=== PATIENT | female | born 1945 | race Caucasian/White ===

== ENCOUNTER 2023-12-07 08:45 | Inpatient (IN) ==
--- NOTE | 2023-12-07 09:22 | Emergency Department Note ---
History of Present Illness General Chief complaint: Shortness of Breath/Dyspnea Time Seen by Provider: 12/07/23 09:04 Source: patient, family (Daughter who is at the bedside), RN notes reviewed and old records reviewed (03/11/23-upper GI endoscopy) Mode of arrival: EMS Limitations: no limitations History of Present Illness This patient is a 78-year-old female who comes in complaining of dyspnea on exertion. She says she gets shaky when she walks has been going on for quite some time. She also has some lower extremity edema she seen thinks the symptoms of gotten worse. No chest pain no shortness of breath at rest. No cough. Denies fever. She does have an ostomy and has had no blood or melena. She does an ostomy bag that has normal output she has history of Crohn's and gets fistulas she has a healing fistula lateral to the ostomy 1 under the ostomy bag. No headache. No urinary symptoms. No syncope or near syncope. No blood thinners. She has no focal numbness or weakness she been keeping up with her fluids Home Medications Medication Instructions Recorded Confirmed Type Bifidobacterium infantis 4 mg 4 mg PO QAM 09/18/22 12/07/23 History capsule (Align) calcium carbonate 600 mg calcium 600 mg PO BID 09/18/22 12/07/23 History (1,500 mg) tablet (Calcium) famotidine 20 mg tablet (Pepcid) 20 mg PO DAILY PRN Acid Reflux 09/18/22 12/07/23 History metformin 500 mg tablet 500 mg PO BID 09/18/22 12/07/23 History potassium chloride 20 mEq 20 meq PO DAILY PRN takes when 09/18/22 12/07/23 History tablet,extended release taking torsemide pravastatin 40 mg tablet 40 mg PO HS 09/18/22 12/07/23 History torsemide 10 mg tablet 10 mg PO DAILY PRN edema in feet 09/18/22 12/07/23 History levothyroxine 200 mcg tablet 200 mcg PO QAM 12/03/22 12/07/23 History diclofenac sodium 1 % topical gel 2 g topical QID #200 grams 01/26/23 12/07/23 Rx (Voltaren Arthritis Pain) cholecalciferol (vitamin D3) 50 50 mcg PO QAM 02/27/23 12/07/23 History mcg (2,000 unit) capsule (Vitamin D3) cyanocobalamin (vitamin B-12) 1,000 mcg PO QAM 02/27/23 12/07/23 History 1,000 mcg tablet (Vitamin B-12) levothyroxine 25 mcg tablet 25 mcg PO QAM 12/07/23 12/07/23 History Allergies Allergy/AdvReac Type Severity Reaction Status Date / Time red dye Allergy Severe Anaphylaxis Verified 03/10/23 13:54 Past Med/Surg History Medical History (Updated 12/07/23 @ 16:24 by Cuong Horton MD) Morbid obesity with BMI of 50.0-59.9, adult Osteoarthritis Ileostomy in place Ulcerative colitis Hypothyroidism Diabetes mellitus, type 2 on metformin daily History of pulmonary embolism "at least 10yrs ago"--unknown cause, was on blood thinners, but then taken off--per pt no issues currently Heart murmur follows with PCP--no obstetrics specialist Surgical History History of benign breast biopsy History of total left knee replacement (TKR) History of total right knee replacement (TKR) History of gastric bypass History of hernia surgery History of cholecystectomy History of appendectomy History of colonoscopy and ileoscopy History of esophagogastroduodenoscopy (EGD) History of colon resection performed about 20yrs ago d/t ulcerative colitis---has ileostomy History of tooth extraction History of wisdom tooth extraction History of thyroidectomy, total d/t nodules History of bilateral cataract extraction Family History Sister Family history of reaction to anesthesia nausea/vomiting Social History Smoking Status: Never smoker Second Hand Exposure: No; Do You Dip or Chew Tobacco: No; Hx Alcohol Use: Yes Alcohol type: wine Hx Substance Use: No Preferred Language: Citizen Of [place] Communication Ability: Effective Supervisor Order Takers Required: No Beliefs That Will Affect Care: None Current Living Situation: Alone Feels Safe at Home: Yes Assistive Devices: Glasses and Walker Review of Systems A total of 10 systems reviewed and were otherwise negative Physical Exam Vital Signs Vital Signs - 24 hr 12/07/23 08:54 12/07/23 08:56 12/07/23 08:56 Temperature 36.7 C Temperature Source Oral Pulse Rate 105 H 101 H Pulse Rate [Apical] Pulse Rate from SpO2 Sensor Pulse Rhythm Regular Pulse Strength Normal Respiratory Rate 20 19 Respiratory Effort / Characteristics Non-Labored Non-Labored Respiratory Depth Normal Normal Respiratory Pattern Regular Regular Blood Pressure 132/104 H Blood Pressure [Right Arm] Blood Pressure Mean 113 Blood Pressure Mean [Right Arm] Blood Pressure Position Sitting Pulse Oximetry 93 Oxygen Delivery Method Room Air Sepsis Recent Fever Within 48 Hours No Sepsis New/Unexplained Change in Mental Status No Sepsis Action Taken by Nursing No Action Required 12/07/23 09:00 12/07/23 09:10 12/07/23 09:20 Temperature Temperature Source Pulse Rate 98 H 102 H 94 H Pulse Rate [Apical] Pulse Rate from SpO2 Sensor 99 H Pulse Rhythm Pulse Strength Respiratory Rate 20 15 20 Respiratory Effort / Characteristics Respiratory Depth Respiratory Pattern Blood Pressure Blood Pressure [Right Arm] Blood Pressure Mean Blood Pressure Mean [Right Arm] Blood Pressure Position Pulse Oximetry 95 Oxygen Delivery Method Sepsis Recent Fever Within 48 Hours Sepsis New/Unexplained Change in Mental Status Sepsis Action Taken by Nursing 12/07/23 09:30 12/07/23 09:31 12/07/23 09:40 Temperature Temperature Source Pulse Rate 92 H 94 H 92 H Pulse Rate [Apical] Pulse Rate from SpO2 Sensor Pulse Rhythm Pulse Strength Respiratory Rate 20 15 Respiratory Effort / Characteristics Respiratory Depth Respiratory Pattern Blood Pressure Blood Pressure [Right Arm] Blood Pressure Mean Blood Pressure Mean [Right Arm] Blood Pressure Position Pulse Oximetry Oxygen Delivery Method Sepsis Recent Fever Within 48 Hours Sepsis New/Unexplained Change in Mental Status Sepsis Action Taken by Nursing 12/07/23 09:50 12/07/23 10:00 12/07/23 10:10 Temperature Temperature Source Pulse Rate 91 H 93 H 91 H Pulse Rate [Apical] Pulse Rate from SpO2 Sensor Pulse Rhythm Pulse Strength Respiratory Rate 18 20 23 Respiratory Effort / Characteristics Respiratory Depth Respiratory Pattern Blood Pressure Blood Pressure [Right Arm] Blood Pressure Mean Blood Pressure Mean [Right Arm] Blood Pressure Position Pulse Oximetry Oxygen Delivery Method Sepsis Recent Fever Within 48 Hours Sepsis New/Unexplained Change in Mental Status Sepsis Action Taken by Nursing 12/07/23 10:20 12/07/23 10:30 12/07/23 10:40 Temperature Temperature Source Pulse Rate 85 85 86 Pulse Rate [Apical] Pulse Rate from SpO2 Sensor Pulse Rhythm Pulse Strength Respiratory Rate 16 16 20 Respiratory Effort / Characteristics Respiratory Depth Respiratory Pattern Blood Pressure Blood Pressure [Right Arm] Blood Pressure Mean Blood Pressure Mean [Right Arm] Blood Pressure Position Pulse Oximetry Oxygen Delivery Method Sepsis Recent Fever Within 48 Hours Sepsis New/Unexplained Change in Mental Status Sepsis Action Taken by Nursing 12/07/23 10:50 12/07/23 11:00 12/07/23 11:10 Temperature Temperature Source Pulse Rate 88 87 88 Pulse Rate [Apical] Pulse Rate from SpO2 Sensor Pulse Rhythm Pulse Strength Respiratory Rate 19 23 23 Respiratory Effort / Characteristics Respiratory Depth Respiratory Pattern Blood Pressure Blood Pressure [Right Arm] Blood Pressure Mean Blood Pressure Mean [Right Arm] Blood Pressure Position Pulse Oximetry Oxygen Delivery Method Sepsis Recent Fever Within 48 Hours Sepsis New/Unexplained Change in Mental Status Sepsis Action Taken by Nursing 12/07/23 11:20 12/07/23 11:30 12/07/23 11:32 Temperature Temperature Source Pulse Rate 90 95 H 95 H Pulse Rate [Apical] Pulse Rate from SpO2 Sensor Pulse Rhythm Pulse Strength Respiratory Rate 18 14 22 Respiratory Effort / Characteristics Respiratory Depth Respiratory Pattern Blood Pressure Blood Pressure [Right Arm] Blood Pressure Mean Blood Pressure Mean [Right Arm] Blood Pressure Position Pulse Oximetry Oxygen Delivery Method Sepsis Recent Fever Within 48 Hours Sepsis New/Unexplained Change in Mental Status Sepsis Action Taken by Nursing 12/07/23 11:32 12/07/23 11:36 12/07/23 11:40 Temperature Temperature Source Pulse Rate 90 Pulse Rate [Apical] 89 Pulse Rate from SpO2 Sensor 91 H Pulse Rhythm Pulse Strength Respiratory Rate 20 22 Respiratory Effort / Characteristics Non-Labored Spontaneous Respiratory Depth Normal Respiratory Pattern Regular Blood Pressure 114/86 Blood Pressure [Right Arm] 114/86 Blood Pressure Mean 97 Blood Pressure Mean [Right Arm] 95 Blood Pressure Position Pulse Oximetry 94 92 Oxygen Delivery Method Room Air Sepsis Recent Fever Within 48 Hours Sepsis New/Unexplained Change in Mental Status Sepsis Action Taken by Nursing 12/07/23 11:50 12/07/23 12:00 12/07/23 12:00 Temperature Temperature Source Pulse Rate 89 91 H Pulse Rate [Apical] Pulse Rate from SpO2 Sensor 91 H 92 H Pulse Rhythm Pulse Strength Respiratory Rate 18 Respiratory Effort / Characteristics Respiratory Depth Respiratory Pattern Blood Pressure 120/86 Blood Pressure [Right Arm] Blood Pressure Mean 100 Blood Pressure Mean [Right Arm] Blood Pressure Position Pulse Oximetry 92 94 Oxygen Delivery Method Sepsis Recent Fever Within 48 Hours Sepsis New/Unexplained Change in Mental Status Sepsis Action Taken by Nursing 12/07/23 12:10 12/07/23 12:20 12/07/23 12:24 Temperature Temperature Source Pulse Rate 92 H 93 H Pulse Rate [Apical] Pulse Rate from SpO2 Sensor 91 H 89 Pulse Rhythm Pulse Strength Respiratory Rate 20 21 Respiratory Effort / Characteristics Respiratory Depth Respiratory Pattern Blood Pressure Blood Pressure [Right Arm] Blood Pressure Mean Blood Pressure Mean [Right Arm] Blood Pressure Position Pulse Oximetry 94 96 Oxygen Delivery Method Room Air Sepsis Recent Fever Within 48 Hours Sepsis New/Unexplained Change in Mental Status Sepsis Action Taken by Nursing 12/07/23 12:24 12/07/23 12:30 12/07/23 12:30 Temperature Temperature Source Pulse Rate 97 H Pulse Rate [Apical] Pulse Rate from SpO2 Sensor 94 H Pulse Rhythm Pulse Strength Respiratory Rate 14 Respiratory Effort / Characteristics Respiratory Depth Respiratory Pattern Blood Pressure 139/91 Blood Pressure [Right Arm] Blood Pressure Mean 110 Blood Pressure Mean [Right Arm] Blood Pressure Position Pulse Oximetry 92 Oxygen Delivery Method Room Air Sepsis Recent Fever Within 48 Hours Sepsis New/Unexplained Change in Mental Status Sepsis Action Taken by Nursing 12/07/23 12:40 12/07/23 12:50 12/07/23 13:00 Temperature Temperature Source Pulse Rate 89 89 92 H Pulse Rate [Apical] Pulse Rate from SpO2 Sensor 90 91 H 90 Pulse Rhythm Pulse Strength Respiratory Rate 16 17 17 Respiratory Effort / Characteristics Respiratory Depth Respiratory Pattern Blood Pressure Blood Pressure [Right Arm] Blood Pressure Mean Blood Pressure Mean [Right Arm] Blood Pressure Position Pulse Oximetry 95 93 93 Oxygen Delivery Method Sepsis Recent Fever Within 48 Hours Sepsis New/Unexplained Change in Mental Status Sepsis Action Taken by Nursing 12/07/23 13:00 12/07/23 13:10 Temperature Temperature Source Pulse Rate 88 Pulse Rate [Apical] Pulse Rate from SpO2 Sensor 91 H Pulse Rhythm Pulse Strength Respiratory Rate 24 Respiratory Effort / Characteristics Respiratory Depth Respiratory Pattern Blood Pressure 130/81 Blood Pressure [Right Arm] Blood Pressure Mean 103 Blood Pressure Mean [Right Arm] Blood Pressure Position Pulse Oximetry 93 Oxygen Delivery Method Sepsis Recent Fever Within 48 Hours Sepsis New/Unexplained Change in Mental Status Sepsis Action Taken by Nursing General: Well developed well nourished older female who appears in no acute distress, breathing comfortably on room air. Normal speech HEENT: Normal cephalic atraumatic. Pupils are equal round and reactive to light. Extraocular movements are intact. Oropharynx is pink with moist mucous membranes. No swelling of the mouth lips or tongue. Neck: Supple with a midline trachea. No meningeal signs or stiffness, no JVD or bruits. No Stridor. Chest: Clear to auscultation bilaterally. No wheezes or rhonchi. No increased work of breathing. Heart: Regular rate and rhythm without murmurs or gallops. Abdomen: Soft nontender, nondistended without rebound guarding or rigidity. There is an ostomy intact in the right abdomen. Medial eats that there is a small fistula which is healed and there is no drainage or redness. There apparently is a fistula under the ostomy the patient tells me. Extremities: No cyanosis clubbing. 1+ bilateral lower extremity .no calf tenderness or assymetry Spine/Back. Non tender to palpation. No CVA tenderness Skin: Good turgor without rashes. Neurologic exam: Cranial nerves two through 12 are intact. Motor and sensation are intact and symmetrical throughout. Course Administered Medications Insulin Aspart (Insulin Aspart Per Unit Charge) 0 units SC ACHS AILIN Stop: 01/06/24 16:29 Last Admin: 12/07/23 15:50 Dose: Not Given Documented By: JONATHON Co-signed By: GERBER Nystatin (Nystatin Cr 15 Gm Tube) 1 appln EXT TID AILIN Stop: 01/06/24 13:59 Last Admin: 12/07/23 15:49 Dose: Not Given Documented By: JONATHON Discontinued Medications Furosemide (Furosemide Inj 20 Mg/2 Ml Vial) 20 mg IV ONE ONE Stop: 12/07/23 11:07 Last Admin: 12/07/23 11:27 Dose: 20 mg Documented By: DANA Medical Decision Making Differential Diagnosis CHF, infection, pneumonia, anemia, Crohn's complication, electrolyte or metabolic abnormality Medical Records Attestation: I reviewed the patient's medical records. Home Medications Current Medication List: was personally reviewed by me Laboratory Data Attestation: I reviewed the patient's lab results. 12/07/23 09:54 12/07/23 09:54 Lab Results 12/07/23 12/07/23 12/07/23 Range/Units 09:54 10:00 10:02 WBC 8.11 (4.8-10.8) K/ul RBC 4.35 (4.20-5.40) M/uL Hgb 12.5 (12.0-16.0) g/dl Hct 38.6 (37.0-47.0) % MCV 88.7 (80.0-100.0) fL MCH 28.7 (25.0-34.0) pg MCHC 32.4 (32.0-36.0) g/dL RDW Std Deviation 47.4 H (36.4-46.3) fL RDW Coeff of Laurie 14.6 H (11.5-14.5) % Plt Count 198 (130-400) K/uL MPV 10.6 (9.4-12.4) fL Immature Gran % (Auto) 0.4 % Neut % (Auto) 78.1 % Lymph % (Auto) 11.3 % Jay % (Auto) 9.2 % Eos % (Auto) 0.5 % Baso % (Auto) 0.5 % Neut # (Auto) 6.33 (1.40-6.50) K/uL Lymph # (Auto) 0.92 L (1.20-3.40) K/uL Jay # (Auto) 0.75 H (0.11-0.59) K/uL Eos # (Auto) 0.04 (0.00-0.50) K/uL Baso # (Auto) 0.04 (0.00-0.20) K/uL Immature Gran # (Auto) 0.03 (0.01-0.20) K/uL PT 10.9 (9.0-12.0) Seconds INR 1.0 (0.9-1.1) Sodium 137 (136-145) mmol/L Potassium 4.5 (3.5-5.1) mmol/L Chloride 102 (98-107) mmol/L Carbon Dioxide 26 (21-32) mmol/L Anion Gap 9 (3-11) BUN 19 (6-23) mg/dl Creatinine 0.81 (0.6-1.2) mg/dl Est Cr Clr Drug Dosing 98.2 ml/min Est GFR ( Amer) 81.8 ml/min Est GFR (Non-Af Amer) 70.5 ml/min BUN/Creatinine Ratio 23.5 H (10-20) Glucose 153 H (70-99(Fasting)) mg/dl POC Glucose (70-99) mg/dl Lactate 1.9 (0.4-2.0) mmol/L Calcium 8.9 (8.6-10.3) mg/dl Magnesium 1.7 (1.7-2.4) mg/dl Total Bilirubin 0.6 (0.2-1.0) mg/dl Direct Bilirubin 0.1 (0-0.2) mg/dl AST 11 L (13-39) U/L ALT 9 (7-52) U/L Alkaline Phosphatase 90 (34-104) U/L Troponin I High Sens 21.3 H (0-14) pg/ml B-Natriuretic Peptide 658 H (0-100) pg/ml Total Protein 7.2 (6.0-8.3) gm/dl Albumin 3.8 (3.4-5.0) gm/dl Procalcitonin < 0.05 (0-0.5) ng/ml Urine Color Urine Appearance (Clear) Urine pH (4.5-7.5) Ur Specific [place] (1.000-1.030) Urine Protein (Negative) Urine Glucose (UA) (Negative) Urine Ketones (Negative) Urine Blood (Negative) Urine Nitrite (Negative) Urine Bilirubin (Negative) Urine Urobilinogen (Negative) Ur Leukocyte Esterase (Negative) SARS-CoV-2 (PCR) (Negative) Influenza Type A (PCR) (Neg) Influenza Type B (PCR) (Neg) RSV (RT-PCR) (Neg) 12/07/23 12/07/23 12/07/23 Range/Units 10:33 11:27 11:49 WBC (4.8-10.8) K/ul RBC (4.20-5.40) M/uL Hgb (12.0-16.0) g/dl Hct (37.0-47.0) % MCV (80.0-100.0) fL MCH (25.0-34.0) pg MCHC (32.0-36.0) g/dL RDW Std Deviation (36.4-46.3) fL RDW Coeff of Laurie (11.5-14.5) % Plt Count (130-400) K/uL MPV (9.4-12.4) fL Immature Gran % (Auto) % Neut % (Auto) % Lymph % (Auto) % Jay % (Auto) % Eos % (Auto) % Baso % (Auto) % Neut # (Auto) (1.40-6.50) K/uL Lymph # (Auto) (1.20-3.40) K/uL Jay # (Auto) (0.11-0.59) K/uL Eos # (Auto) (0.00-0.50) K/uL Baso # (Auto) (0.00-0.20) K/uL Immature Gran # (Auto) (0.01-0.20) K/uL PT (9.0-12.0) Seconds INR (0.9-1.1) Sodium (136-145) mmol/L Potassium (3.5-5.1) mmol/L Chloride (98-107) mmol/L Carbon Dioxide (21-32) mmol/L Anion Gap (3-11) BUN (6-23) mg/dl Creatinine (0.6-1.2) mg/dl Est Cr Clr Drug Dosing ml/min Est GFR ( Amer) ml/min Est GFR (Non-Af Amer) ml/min BUN/Creatinine Ratio (10-20) Glucose (70-99(Fasting)) mg/dl POC Glucose (70-99) mg/dl Lactate (0.4-2.0) mmol/L Calcium (8.6-10.3) mg/dl Magnesium (1.7-2.4) mg/dl Total Bilirubin (0.2-1.0) mg/dl Direct Bilirubin (0-0.2) mg/dl AST (13-39) U/L ALT (7-52) U/L Alkaline Phosphatase (34-104) U/L Troponin I High Sens 20.7 H (0-14) pg/ml B-Natriuretic Peptide (0-100) pg/ml Total Protein (6.0-8.3) gm/dl Albumin (3.4-5.0) gm/dl Procalcitonin (0-0.5) ng/ml Urine Color Yellow Urine Appearance Clear (Clear) Urine pH 5.0 (4.5-7.5) Ur Specific [place] 1.019 (1.000-1.030) Urine Protein Negative (Negative) Urine Glucose (UA) Negative (Negative) Urine Ketones Negative (Negative) Urine Blood Negative (Negative) Urine Nitrite Negative (Negative) Urine Bilirubin Negative (Negative) Urine Urobilinogen Negative (Negative) Ur Leukocyte Esterase Negative (Negative) SARS-CoV-2 (PCR) NEGATIVE (Negative) Influenza Type A (PCR) Negative (Neg) Influenza Type B (PCR) Negative (Neg) RSV (RT-PCR) Negative (Neg) 12/07/23 12/07/23 Range/Units 13:15 15:41 WBC (4.8-10.8) K/ul RBC (4.20-5.40) M/uL Hgb (12.0-16.0) g/dl Hct (37.0-47.0) % MCV (80.0-100.0) fL MCH (25.0-34.0) pg MCHC (32.0-36.0) g/dL RDW Std Deviation (36.4-46.3) fL RDW Coeff of Laurie (11.5-14.5) % Plt Count (130-400) K/uL MPV (9.4-12.4) fL Immature Gran % (Auto) % Neut % (Auto) % Lymph % (Auto) % Jay % (Auto) % Eos % (Auto) % Baso % (Auto) % Neut # (Auto) (1.40-6.50) K/uL Lymph # (Auto) (1.20-3.40) K/uL Jay # (Auto) (0.11-0.59) K/uL Eos # (Auto) (0.00-0.50) K/uL Baso # (Auto) (0.00-0.20) K/uL Immature Gran # (Auto) (0.01-0.20) K/uL PT (9.0-12.0) Seconds INR (0.9-1.1) Sodium (136-145) mmol/L Potassium (3.5-5.1) mmol/L Chloride (98-107) mmol/L Carbon Dioxide (21-32) mmol/L Anion Gap (3-11) BUN (6-23) mg/dl Creatinine (0.6-1.2) mg/dl Est Cr Clr Drug Dosing ml/min Est GFR ( Amer) ml/min Est GFR (Non-Af Amer) ml/min BUN/Creatinine Ratio (10-20) Glucose (70-99(Fasting)) mg/dl POC Glucose 135 H 122 H (70-99) mg/dl Lactate (0.4-2.0) mmol/L Calcium (8.6-10.3) mg/dl Magnesium (1.7-2.4) mg/dl Total Bilirubin (0.2-1.0) mg/dl Direct Bilirubin (0-0.2) mg/dl AST (13-39) U/L ALT (7-52) U/L Alkaline Phosphatase (34-104) U/L Troponin I High Sens (0-14) pg/ml B-Natriuretic Peptide (0-100) pg/ml Total Protein (6.0-8.3) gm/dl Albumin (3.4-5.0) gm/dl Procalcitonin (0-0.5) ng/ml Urine Color Urine Appearance (Clear) Urine pH (4.5-7.5) Ur Specific [place] (1.000-1.030) Urine Protein (Negative) Urine Glucose (UA) (Negative) Urine Ketones (Negative) Urine Blood (Negative) Urine Nitrite (Negative) Urine Bilirubin (Negative) Urine Urobilinogen (Negative) Ur Leukocyte Esterase (Negative) SARS-CoV-2 (PCR) (Negative) Influenza Type A (PCR) (Neg) Influenza Type B (PCR) (Neg) RSV (RT-PCR) (Neg) Imaging Data Attestation: I personally reviewed and interpreted this imaging study as follows: My Impression: Chest x-mark per my independent interpretation -there is cardiomegaly and increased vascular congestion I suspect a mild degree of CHF Radiologist's Impression: Chest X-Ray 12/07/23 09:14 XR chest 1V portable CLINICAL HISTORY: Sepsis TECHNIQUE: Single frontal radiograph of the chest was obtained. Comparison: None available at the time of this dictation. FINDINGS: No lines and tubes are seen. Cardiomegaly is noted. The aortic arch is calcified. The lungs are clear. No evidence of pleural effusion or pneumothorax. IMPRESSION: No acute abnormalities and in particular no radiographic evidence of pneumonia. ACT 112: Negative or not required by law. Electronically signed by: Jj Botello M.D. 12/07/2023 9:52 AM Venous Doppler Study 12/07/23 13:04 RIGHT LOWER EXTREMITY VENOUS DOPPLER HISTORY: right > left external swelling, hx of DVT/PE COMPARISON STUDY: None. FINDINGS: The right common femoral and superficial femoral veins are patent. There is occlusive thrombus identified within the right popliteal vein and lesser saphenous vein. The right calf vessels weren't not well visualized. IMPRESSION: Occlusive thrombus within the right popliteal vein and adjacent lesser saphenous vein. ACT 112: Negative or not required by law. Electronically signed by: Caleb Simmons M.D. 12/07/2023 2:48 PM Abdomen Ultrasound 12/07/23 13:14 ULTRASOUND ASCITES CHECK CLINICAL HISTORY: Cirrhosis. Abdominal swelling. COMPARISON STUDY: Abdominal CT dated 05/06/2023. FINDINGS: Real-time grayscale sonography of all 4 quadrants of the abdomen is performed to assess for abdominal ascites. No abdominal ascites is identified. IMPRESSION: No abdominal ascites is identified at the time of examination. Electronically signed by: Aramis Arceo M.D. 12/07/2023 2:29 PM ECG Data Attestation: I personally reviewed and interpreted this ECG as follows: Indication: + weakness Rate (beats per minute): 95 Rhythm: + normal sinus and + other (Poor baseline) ECG Intervals/blocks: + Normal QRS, + Normal QT and + Normal MD ECG [place]: + Normal ECG ST segments: + Normal ST segments and + T-wave inversions ECG Findings: + PACs; no PVCs Comparison ECG Date: no prior available Change: the following changes noted MDM Narrative This patient comes in as described above. She has had shakiness and dyspnea on exertion as well as increased lower extremity edema this been going on for a week or so but she think she is worse. She is afebrile. She has had no chest pain. She is stable vital signs at rest and feels well when she is sitting in bed. I did order full sepsis type workup as well as cardiac/pulmonary workup. Her EKG shows no acute ischemic changes or ectopy seen. Chest x-ray does suggest a component of CHF her BNP is elevated. Troponin is also mildly elevated 20 although she has no chest pain. She has had increasing lower extremity edema, I did give her Lasix 20 mg IV. She is not in A-fib. I did discuss the case with the [facility] hospitalist and I do think she has been admitted/ observed for further treatment and evaluation Continuous cardiac monitoring: Orders placed in EMR for continuous cardiac monitoring: Upon my evaluation patient noted to be in normal sinus rhythm rate of 95 Impression & Plan CHF (congestive heart failure), RIOS (dyspnea on exertion), Bilateral lower extremity edema, Elevated troponin I level Discharge Plan Visit Data Chief Complaint: Shortness of Breath/Dyspnea ED Provider: Cuong Horton Discharge Problem: CHF (congestive heart failure), RIOS (dyspnea on exertion), Bilateral lower extremity edema, Elevated troponin I level Forms Stand Alone Forms: My [employer] Prescriptions Prescriptions: No Action diclofenac sodium [Voltaren Arthritis Pain] 1 % gel 2 g topical QID Qty: 200 2RF Rx Instructions: apply to single elbow, wrist or hand; for hand includes palm/fingers/back of hand levothyroxine 200 mcg Tablet 200 mcg PO QAM Patient Comments: takes 200 mcg with 25 mcg for dose of 225 mcg cyanocobalamin (vitamin B-12) [Vitamin B-12] 1,000 mcg Tablet 1,000 mcg PO QAM cholecalciferol (vitamin D3) [Vitamin D3] 50 mcg (2,000 unit) Capsule 50 mcg PO QAM levothyroxine 25 mcg Tablet 25 mcg PO QAM Patient Comments: takes with 200 mcg metformin 500 mg Tablet 500 mg PO BID pravastatin 40 mg Tablet 40 mg PO HS torsemide 10 mg Tablet 10 mg PO DAILY PRN (Reason: edema in feet) calcium carbonate [Calcium 600] 600 mg calcium (1,500 mg) Tablet 600 mg PO BID Align 4 mg Capsule 4 mg PO QAM potassium chloride 20 mEq Tablet Extended Release 20 meq PO DAILY PRN (Reason: takes when taking torsemide) famotidine [Pepcid] 20 mg Tablet 20 mg PO DAILY PRN (Reason: Acid Reflux) Patient Comments: hardly uses Referrals Referrals: PCP,NO [Physician] - Discharge Problem: CHF (congestive heart failure) Qualifiers: Heart failure type: unspecified Heart failure chronicity: acute Qualified Code(s): I50.9 - Heart failure, unspecified
--- NOTE | 2023-12-07 09:53 | XRay Report ---
XR chest 1V portable CLINICAL HISTORY: Sepsis TECHNIQUE: Single frontal radiograph of the chest was obtained. Comparison: None available at the time of this dictation. FINDINGS: No lines and tubes are seen. Cardiomegaly is noted. The aortic arch is calcified. The lungs are clear . No evidence of pleural effusion or pneumothorax. IMPRESSION: No acute abnormalities and in particular no radiographic evidence of pneumonia. ACT 112: Negative or not required by law. Electronically signed by: Jj Botello M.D. 12/07/2023 9:52 AM
--- NOTE | 2023-12-07 09:56 | Electrocardiogram Report ---
Test Reason : Blood Pressure : / mmHG Vent. Rate : 095 BPM Atrial Rate : 095 BPM P-R Int : 152 ms QRS Dur : 082 ms QT Int : 372 ms P-R-T Axes : 042 -15 024 degrees QTc Int : 467 ms Sinus rhythm with Premature supraventricular complexes Nonspecific T wave abnormality Abnormal ECG No previous ECGs available Confirmed by Michael Bowden ([id number]) on 12/07/2023 9:55:55 AM Referred By: REFERRED SELF Confirmed By:Michael Bowden
--- OUTSIDE RECORDS SUMMARY | 2023-12-07 10:12 | External Medical Summary | Continuity of Care Document ---
Author Name Unknown Organization [address] [id number] Care Team Providers Care Agriculture Specialist Name Role Phone StreetSai Collinsina Lucero Primary Care Physician [phone] [id number] Date(s): 11/26/23 - 11/26/[address] [address] [phone] Encounter Diagnosis Need for hepatitis B booster vaccination(Discharge Diagnosis) - 11/26/23 Discharge Disposition: Home or Self Care Attending Physician: AIDNA Johns Kelli Jo Allergies, Adverse Reactions, Alerts No Known Medication Allergies Substance Reaction Severity Status red dye Anaphylaxis Severe Active Immunizations Given and Recorded Vaccine Date Status Refusal Reason hepatitis B adult vaccine 11/26/23 Given hepatitis B adult vaccine 05/04/23 Given hepatitis B adult vaccine 03/30/23 Given influenza virus vaccine, inactivated 10/13/22 Give n SARS-CoV-2 (COVID-19) mRNA BNT-162b2 vax 1 10/23/21 Recorded SARS-CoV-2 (COVID-19) mRNA BNT-162b2 vax 03/16/21 Recorded SARS-CoV-2 (COVID-19) mRNA BNT-162b2 vax 02/22/21 Recorded 1Result Comment: 2022-07-10: Historical information-source unspecified Medications Align Start: 07/10/22 15:11:00 EDT Start Date: 07/10/22 Status: Ordered Calcium 600+D Start: 07/10/22 15:11:00 EDT Start Date: 07/10/22 Status: Ordered ciprofloxacin 500 mg oral tablet Start: 11/24/23 6:24:00 EST, 1 tab, PO, q12h, Disp# 56 tab, Refills: 0, Pharmacy: [facility] [id number] Start Date: 11/24/23 Stop Date: 12/22/23 Status: Ordered diclofenac 1% topical gel APPLY 2 GRAMS TOPICALLY TO SINGLE ELBOW, WRIST OR HAND (HAND INCLUDES PALM/FINGERS/BACK OF HAND) 4 TIMES DAILY Start Date: 03/30/23 Status: Ordered hepatitis B adult vaccine 20 mcg/mL Start: 05/04/23 11:23:00 EDT, 1 mL, IM, ONCE, Disp# 1 mL, given to patient Start Date: 05/04/23 Status: Ordered levothyroxine 200 mcg (0.2 mg) oral tablet Start: 08/14/23 13:45:00 EDT, 1 tab, PO, Daily, Disp# 30 tab, Refills: 4, Pharmacy: [facility] 2229 Start Date: 08/14/23 Stop Date: 01/11/24 Status: Ordered levothyroxine 25 mcg (0.025 mg) oral tablet Start: 10/19/23 10:03:00 EST, 1 tab, PO, Daily, Disp# 30 tab, Refills: 2, Note to Pharmacy: patientto take 225 mg of levothyroxine., Pharmacy: [facility] 2229 Start Date: 10/19/23 Stop Date: 01/17/24 Status: Ordered metFORMIN 500 mg oral tablet Start: 04/20/23 13:09:00 EDT, 1 tab, PO, bid, Disp# 180 tab, Refills: 2, Pharmacy: [facility] Start Date: 04/20/23 Stop Date: 01/15/24 Status: Ordered metroNIDAZOLE 500 mg oral tablet Start: 11/24/23 6:24:00 EST, 1 tab, PO, q8h, Disp# 84 tab, Refills: 0, Pharmacy: [facility] 2229 Start Date: 11/24/23 Stop Date: 12/22/23 Status: Ordered nystatin 100,000 units/g topical powder Start: 06/03/23 10:48:00 EDT, See Instructions, Disp# 15 g, Refills: 1, Apply topically to affectedabdominal area 2-3 times daily, Pharmacy: [facility] 2229 Start Date: 06/03/23 Status: Ordered Potassium Chloride (Eqv-K-Tab) 20 mEq oral tablet, extended release Start: 09/02/23 13:23:00 EDT, 1 tab, PO, Daily, Disp# 90 tab, Refills: 5, Pharmacy: [facility] Start Date: 09/02/23 Stop Date: 02/23/25 Status: Ordered pravastatin 40 mg oral tablet Start: 04/20/23 13:10:00 EDT, 1 tab, PO, Daily, Disp# 90 tab, Refills: 1, Pharmacy: [facility] Start Date: 04/20/23 Stop Date: 10/17/23 Status: Ordered torsemide 10 mg oral tablet Start: 04/20/23 13:10:00 EDT, 1 tab, PO, Daily, Disp# 90 tab, Refills: 2, Pharmacy: [facility] Start Date: 04/20/23 Stop Date: 01/15/24 Status: Ordered Vitamin B12 Start: 07/10/22 15:10:00 EDT Start Date: 07/10/22 Status: Ordered Vitamin D3 1000 intl units (25 mcg) oral tablet Start: 10/13/22 10:07:00 EST, 1 tab, PO, bid Start Date: 10/13/22 Status: Ordered Problem List Condition Confirmation Course Effective Dates Status H ealth Status Informant Anemia Confirmed Active Cirrhosis Confirmed Active Diabetes Confirmed Active Hypothyroidism Confirmed Active Fistula Confirmed Active 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 Diabetic neuropathy Confirmed Active Tinea unguium Confirmed Active Arthritis, rheumatoid Confirmed Active Ulcerative colitis 1 Confirmed Active Vitamin D deficiency Confirmed Active 1c/b fistula formation Diagnosis Diagnosis Type Effective Dates Health Status Clinical Service Informant Need for hepatitis B booster vaccination Discharge Diagnosis 11/26/23 Non-Specified Procedures Procedure Date Related Diagnosis Body Site Status CT enterography 1 05/06/23 Complet ed Ultrasound--abdomen 2, 3 04/03/23 Completed Upper GI (gastrointestinal) endoscopy 4, 5 03/10/23 Completed Colonoscopy 6 09/23/[address] of abdomen and pelvis 7 09/05/22 Completed Medical records review 8 05/07/21 Completed Gastric bypass Completed Thyroidectomy Completed Total colectomy and ileostomy Completed Total knee replacement 9 Completed 1Impression: Redomonstration of a parastomal hernia. There are again noted to be multiple connections etween the bowel and the skin surface which may represent enterocutaneous fistulas. Correlation with physical exam is recommended. Hepatic cirrhosis 21) Cirrhotic liver. No hepatic lesions identified although sensitivity diminshed on this exam. 2) No significant biliary ductal dilatation s/p cholecystectomy 3RUQ US enlarged and fatty liver also. 4Impression: -Normal esophagus. -Gastric bypass with a large sized pounch. Gastrojejunal anastomosis characterized by healthy appearing mucosa. -Normal examined jejunum. Biopsied. 5path NPD 6One polyp in the area at 10cm proximal to the stoma, biopsied. The examined portion of the ileum was normal, biopsied 7CT a/p fatty liver, hepatomegaly, cirrhosis, moderate atherosclerosis of abdominal aorta, small HH,post op changes of stomach, subtototal colectomy and RLQ ileostomy peristomall hernia, rectal stump, umbilical hernia, osteopenisa 8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 CMP 10/2020 gluc 113 H, CMP 01/2022 [id number] H, Hgb a1c 6.2 H, 9bilateral knees Social History Social History Type Response Smoking Status Never smoked cigaret fadi Sex Patient Care team information Care Team Personnel Name: CHONG Ayala, Sola Barker Position: Physician - Podiatry Member Role: Primary Care Provider Address: Address: [address] [facility] [address] [place] [address], [place] [address] Care Team Related Persons Name: NOHELIA HOLLINS Address: [place] Address: home [address] [facility], [place] [id number]
--- OUTSIDE RECORDS SUMMARY | 2023-12-07 10:12 | External Medical Summary | Continuity of Care Document ---
Author Name Unknown Organization [facility] [address] [place], [place] [id number] Care Team Providers Care Operations Coordinator Name Role Phone Sola Ayala Primary Care Physician [phone] [id number] Date(s): 09/23/23 - 09/23/23 [facility] [address] [facility] [address], [facility] [address] [place], [phone] Encounter Diagnosis Other specified disorders of thyroid(Final) - Ulcerative colitis, unspecified, without complications(Final) - Ileostomy status(Final) - Type 2 diabetes mellitus without complications(Final) - Unspecified cirrhosis of liver(Final) - Discharge Disposition: Home or Self Care Attending Physician: MD Shi Christopher Referring Physician: MD Shi Christopher Allergies, Adverse Reactions, Alerts No Known Medication Allergies Substance Reaction Severity Status red dye Anaphylaxis Severe Active Immunizations Given and Recorded Vaccine Date Status Refusal Reason hepatitis B adult vaccine 05/04/23 Given hepatitis [...] Ordered ciprofloxacin 500 mg oral tablet Start: 09/17/23 19:28:00 EDT, 1 tab, PO, q12h, Disp# 56 tab, Refills: 0, Pharmacy: [place] [id number] Start Date: 09/17/23 Stop Date: 10/15/23 Status: Ordered diclofenac 1% topical gel APPLY [...] Daily, Disp# 30 tab, Refills: 4, Pharmacy: [facility] 2229 Start Date: 08/14/23 Stop Date: 01/11/24 Status: Ordered levothyroxine 25 mcg (0.025 mg) oral tablet Start: 07/22/23 17:44:00 EDT, 1 tab, PO, Daily, Disp# 30 tab, Refills: 2, Note to Pharmacy: patientto take 225 mg of levothyroxine., Pharmacy: [facility] 2229 Start Date: 07/22/23 Stop Date: 10/20/23 Status: Ordered metFORMIN 500 mg oral tablet Start: 04/20/23 13:09:00 EDT, 1 tab, PO, bid, Disp# 180 tab, Refills: 2, Pharmacy: [facility] Start Date: 04/20/23 Stop Date: 01/15/24 Status: Ordered metroNIDAZOLE 500 mg oral tablet Start: 09/17/23 19:28:00 EDT, 1 tab, PO, q8h, Disp# 84 tab, Refills: 0, Pharmacy: [facility] 2229 Start Date: 09/17/23 Stop Date: 10/15/23 Status: Ordered nystatin 100,000 units/g topical powder Start: 06/03/23 10:48:00 EDT, See Instructions, Disp# 15 g, Refills: 1, Apply topically to affectedabdominal area 2-3 times daily, Pharmacy: [facility] Start Date: 06/03/23 Status: Ordered Potassium Chloride (Eqv-K-Tab) 20 mEq oral tablet, extended release Start: 09/02/23 13:23:00 EDT, 1 tab, PO, Daily, Disp# 90 tab, Refills: 5, Pharmacy: [facility] Start Date: 09/02/23 Stop Date: 02/23/25 Status: Ordered pravastatin 40 mg oral tablet Start: 04/20/23 13:10:00 EDT, 1 tab, PO, Daily, Disp# 90 tab, Refills: 1, Pharmacy: [facility] Start Date: 04/20/23 Stop Date: 10/17/23 Status: Ordered torsemide 10 mg oral tablet Start: 04/20/23 13:10:00 EDT, 1 tab, PO, Daily, Disp# 90 tab, Refills: 2, Pharmacy: [facility] Start Date: 04/20/23 Stop Date: 01/15/24 Status: Ordered Vitamin B12 Start: 07/10/22 15:10:00 EDT Start Date: 07/10/22 Status: Ordered Vitamin D3 1000 intl units (25 mcg) oral tablet Start: 10/13/22 10:07:00 EST, 1 tab, PO, bid Start Date: 10/13/22 Status: Ordered Problem List Condition Confirmation Course Effective Dates Status H ealth Status Informant Anemia Confirmed Active Cirrhosis Confirmed Active Inflammatory bowel disease (Crohn's disease) Confirmed Active Diabetes Confirmed Active Hypothyroidism Confirmed Active Fistula Confirmed Active 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 CMP 10/2020 gluc 113 H, CMP 01/2022 [id number] H, Hgb a1c 6.2 H, 9bilateral knees Results Laboratory List Name Date Comprehensive Metabolic Panel (COMP META B PANEL) 09/23/23 Hemoglobin A1C (HEMOGLOBIN, A1C) 3 Lipid Profile (LIPOPROTEINS) 09/23/23 Most recent to oldest [Reference Range]: 1 eGFR CKD-EPI [>60 mL/min/1.73 m2] 75 mL/ min/1.73 m2 1 (09/23/23 10:44 AM) Estimated Average Glucose 128 mg/dL 2 (09/23/23 10:44 AM) Non-HDL 167 mg/dL 3 (09/23/23 10:44 AM) Estimated CrCl 96.29 mL/min (09/23/23 11:23 AM) Anion Gap [5-14 mmol/L] 6 mmol/L (09/23/23 10:44 AM) Alb [3.5-5.0 g/dL] 4.0 g/dL (09/23/23 10:44 AM) Alk Phos [38-126 unit/L] 112 unit/L (09/23/23 10:44 AM) ALT [<35 unit/L] 22 unit/L (09/23/23 10:44 AM) AST [15-46 unit/L] 24 unit/L (09/23/23 10:44 AM) BUN [7-20 mg/dL] 15 mg/dL (09/23/23 10:44 AM) Ca [8.4-10.2 mg/dL] 8.4 mg/dL (09/23/23 10:44 AM) Chol/HDL 5 (09/23/23 10:44 AM) Chol [125-200 mg/dL] 211 mg/dL *HI* (09/23/23 10:44 AM) Cl- [96-107 mmol/L] 106 mmol/L (09/23/23 10:44 AM) HCO3 [22-30 mmol/L] 27 mmol/L (09/23/23 10:44 AM) Cret [0.60-1.00 mg/dL] 0.81 mg/dL (09/23/23 10:44 AM) HbA1c [4.0-6.0 %] 6.1 % *HI* (09/23/23 10:44 AM) Glu [74-106 mg/dL] 127 mg/dL *HI* (09/23/23 10:44 AM) HDL [>35 mg/dL] 44 mg/dL (09/23/23 10:44 AM) K [3.5-5.1 mmol/L] 5.1 mmol/L (09/23/23 10:44 AM) LDL Chol, Calculated [50-130 mg/dL] 126 mg/dL (09/23/23 10:44 AM) Na [137-145 mmol/L] 139 mmol/L (09/23/23 10:44 AM) T Bili [0.2-1.3 mg/dL] 0.6 mg/dL (09/23/23 10:44 AM) Prot [6.3-8.2 g/dL] 7.8 g/dL (09/23/23 10:44 AM) TG [<200 mg/dL] 203 mg/dL *HI* (09/23/23 10:44 AM) 1Result Comment: Testing Performed By: Dept of Pathology [facility] [address], [address], [place] [address] 2Result Comment: Testing Performed By: Dept of Pathology [facility] [address], [address], [place] [address] 3Result Comment: Testing Performed By: Dept of Pathology [facility] [address], [address] [place] [address] Social History Social History Type Response Smoking Status Never smoked cigaret fadi Sex Patient Care team information Care Team Personnel Name: CHONG Ayala, Sola Barker Position: Physician - Podiatry Member Role: Primary Care Provider Address: Address: [facility] [address] [place] [address] [place] Care Team Related Persons Name: NOHELIA HOLLINS Address: [place] Address: home [address] [facility], [place] [id number]
--- OUTSIDE RECORDS SUMMARY | 2023-12-07 10:12 | External Medical Summary | Continuity of Care Document ---
Author Name Unknown Organization [place] [address] [facility] A Address [address] [place] [id number] Care Team Providers Care Windshield Repair Technician Name Role Phone Sola Ayala Primary Care Physician [phone] [facility] [id number] Date(s): 11/09/23 - 11/09/[address] [address] [phone] Encounter Diagnosis Ileostomy in place(Discharge Diagnosis) - 11/09/23 Fistula(Discharge Diagnosis) - 11/09/23 Ulcerative colitis(Discharge Diagnosis) - 11/09/23 Cirrhosis(Discharge Diagnosis) - 11/09/23 Discharge Disposition: Home or Self Care Attending Physician: ADINA Johns Kelli Jo Allergies, Adverse Reactions, Alerts No Known Medication Allergies Substance Reaction Severity Status red dye Anaphylaxis Severe Active Assessment and Plan Extracted from: Title:TeleHealth Visit Note Author:ADINA Johns Kelli Jo Date:11/09/[address] 2.Fistula 3.Ulcerative colitis - I have stressed to pt the importance of keeping her Dec [address] Blackwood. She needs to be following with IBD for your complicated presentation. Pt previously referred to IBD by her GI provider Dr. Bonilla. We will reach out to Dr. Blackwood to verify if he will allow pt to complete Televideo appt that day. Pt is agreeable to coming to our office for this appt, for our staff to assist with televideo. Per patient report diagnosed approximately 20 years ago as ulcerative colitiswith rapid developmentpromptingcomplete proctocolectomy with end ileostomy Patient again notes thatshehad infusions after her surgery "did not work". Ileoscopy 08/2022 with evidence ofchronicileitis It is possible thatpatient's disease has advanced to Crohn's diseasewithenterocutaneous fistula Negative QuantiFERONgoldtuberculosistesting,Remicade activity level and antibody testing,[id number] genetic testing (not completed) Patient has hadhepatitis B testing 12/2022 which demonstrated negative serology and she has begun hepatitis B vaccination series, Nurse appt this Thursday to complete series. Multidisciplinary inflammatory bowel disease clinic recommends reevaluation by CR surgical team, who has recommended disease control with medical management. -Will wait to hearif drainage from abdominal fistula becomes more purulent, currently has about 10 days of abx remaining. - CT enterographydemonstrated multiple enterocutaneous fistulas - Wound/ostomy referral previously placed due to skin concerns with draining abdominal wall fistulas 4.Cirrhosis Not addressed on telephone visit today. Patient will needher routine follow-up with Dr. Bonilla who manages her cirrhosisscheduled. GI follow up in2 months with Dr. Bonilla for Cirrhosis management, sooner if needed. I have spent 30 minutes in evaluation, education and documentation of this pt in both face to face and non-face to face activities. Immunizations Given and Recorded Vaccine Date Status [...] Ordered ciprofloxacin 500 mg oral tablet Start: 10/19/23 11:24:00 EST, 1 tab, PO, q12h, Disp# 56 tab, Refills: 0, Pharmacy: [id number] Start Date: 10/19/23 Stop Date: 11/16/23 Status: Ordered diclofenac 1% topical gel APPLY [...] Daily, Disp# 30 tab, Refills: 4, Pharmacy: [id number] Start Date: 08/14/23 Stop Date: 01/11/24 Status: Ordered levothyroxine 25 mcg (0.025 mg) oral tablet Start: 10/19/23 10:03:00 EST, 1 tab, PO, Daily, Disp# 30 tab, Refills: 2, Note to Pharmacy: patientto take 225 mg of levothyroxine., Pharmacy: [id number] Start Date: 10/19/23 Stop Date: 01/17/24 Status: Ordered metFORMIN 500 mg oral tablet Start: 04/20/23 13:09:00 EDT, 1 tab, PO, bid, Disp# 180 tab, Refills: 2, Pharmacy: [id number] Start Date: 04/20/23 Stop Date: 01/15/24 Status: Ordered metroNIDAZOLE 500 mg oral tablet Start: 10/19/23 11:24:00 EST, 1 tab, PO, q8h, Disp# 84 tab, Refills: 0, Pharmacy: [id number] Start Date: 10/19/23 Stop Date: 11/16/23 Status: Ordered nystatin 100,000 units/g topical powder Start: 06/03/23 10:48:00 EDT, See Instructions, Disp# 15 g, Refills: 1, Apply topically to affectedabdominal area 2-3 times daily, Pharmacy: [id number] Start Date: 06/03/23 Status: Ordered Potassium Chloride (Eqv-K-Tab) 20 mEq oral tablet, extended release Start: 09/02/23 13:23:00 EDT, 1 tab, PO, Daily, Disp# 90 tab, Refills: 5, Pharmacy: [id number] Start Date: 09/02/23 Stop Date: 02/23/25 Status: Ordered pravastatin 40 mg oral tablet Start: 04/20/23 13:10:00 EDT, 1 tab, PO, Daily, Disp# 90 tab, Refills: 1, Pharmacy: [id number] Start Date: 04/20/23 Stop Date: 10/17/23 Status: Ordered torsemide 10 mg oral tablet Start: 04/20/23 13:10:00 EDT, 1 tab, PO, Daily, Disp# 90 tab, Refills: 2, Pharmacy: [id number] Start Date: 04/20/23 Stop Date: 01/15/24 Status: Ordered Vitamin B12 Start: 07/10/22 15:10:00 EDT Start Date: 07/10/22 Status: Ordered Vitamin D3 1000 intl units (25 mcg) oral tablet Start: 10/13/22 10:07:00 EST, 1 tab, PO, bid Start Date: 10/13/22 Status: Ordered Mental Status 11/09/23 Barriers to Learning one year None evide nt Mandatory Health Literacy Documentation Yes Health Literacy Communication Barriers N ever Primary Language French Problem List Condition Confirmation Course Effective Dates [...] Effective Dates Health Status Clinical Service Informant Fistula Discharge Diagnosis 11/09/[address] Discharge Diagnosis 11/09/23 Ulcerative colitis Discharge Diagnosis 11/09/23 Cirrhosis Discharge Diagnosis 11/09/23 Procedures Procedure Date Related Diagnosis Body Site [...] hernia, rectal stump, umbilical hernia, osteopenisa [facility] and 12/28/20 Office visits s/u 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 CMP 10/2020 gluc 113 H, CMP 01/2022 [id number] H, Hgb a1c 6.2 H, 9bilateral knees Social History Social History Type Response Smoking Status Never smoked cigaret fadi Sex Gastroenterology Outpatient Note * ADINA Johns, Lyn Mily: PERFORM Event Display: Gastroenterology Outpt Note Authored Date: TeleHealth Visit Note I have confirmed the patients name and date of . The patient has consented to this service,and I have advised the patient that this is a billable visit for which they may be subject to a copay. [ _X ] The patient has initiated this visit after he/she was informed of the availability of telehealth for this medically necessary visit. [ _ ] The provider initiated this visit after explaining the need for this visit to the patient, who has consented to this virtual visit. I am located at my: [ X_ ] Office [ _ ] Home [ _ ] Other: _ The patient is located at: [ X_ ] Home [ _ ] Other: _ This visit was conducted via live audio/video technology: [ _ ] [facility] [ _ ] Zoom This visit was conducted via [ _X ] Telephone, and was not related to a visit or procedure that occurred within the past 7 days. Telephone Only Visit: Reason for audio only visit was [X _ ] no internet connection available [ _ ] Other: _. Total time spent communicating with the patient:18 minutes Start time: 11:32 End time: 11:50 Chief Complaint Telehealth: Pt is f/u for Hx of UC. One abd fistula is closed and the other is healing but onceABXs stop, they will open right back up. Pt did not do appt with IBD at [facility] History of Present Illness The patient is a pleasant 47-[id number][age][id number] presents today forfollow-up evaluation ofhistory of inflammatory bowel disease withproctocolectomyand end ileostomy.[facility],and past medical historyreviewed. Abdominal surgical history:Proctocolectomywith ileostomy, appendectomy,gastric biopsy with cholecystectomy Prior records: 09/05/2022: CT enterography obtained due to noninfectious gastroenteritis and colitis demonstrated 1. No acute infectious or inflammatory findings are identified in the abdomen or pelvis. 2. There is postoperative change from subtotal colectomy and right lower quadrant ileostomy. No bowel obstruction is identified. 3. A parastomal hernia contains unobstructed small bowel loops. 4. The liver is enlarged, steatotic, and shows morphologic changes of cirrhosis. 09/23/2022: Ileoscopy notes are reviewed for follow-up of chronic ulcerative pancolitis, colocutaneous fistula which demonstrated an area 10 cm proximal to the stoma containing 1 sessile, nonbleedingpolyp which was 6 mm in diameter and biopsied. The area at 100 cm proximal to the stoma appeared normal with biopsies obtained. Pathology results demonstrated chronic ileitis with mild activity. 03/10/2023: EGD notes are reviewed performed due to history of iron deficiency anemia demonstrated normal esophagus. Evidence of gastric bypass was found. Gastric pouch with a large size was found. Gastrojejunal anastomosis characterized by healthy-appearing mucosa. This was transversed. Examined jejunum was normal. This was biopsied with cold forceps for histology. Pathology notes demonstrated no diagnostic abnormality, negative for sprue, parasites, dysplasia, malignancy. 03/30/2023: GI office visit notes are reviewed from Dr. Bonilla for patient with history of cirrhosis,fistulas around ostomy, ulcerative colitis, vitamin D deficiency, and anemia 04/17/2023: Colorectal surgery notes are reviewed for follow-up of peristomal fistulas. The patient underwent colectomy over 10 years ago in [facility] for what was believed to be fulminant UC. Developed parastomal hernia with repair done elsewhere. She has had intermittent fistula like tracts developing with abscess formation requiring antibiotics. They have occurred circumferentially around the stoma from time to time and recommended pouching. Typically purulent material comes out. Patient is post ileoscopy with chronic ileitis noted. She was began on Cipro and Flagyl with budesonide at this appointment. She was also asked to follow-up with GI. 04/23/2023 GI OV:The patient presents today for follow-up evaluation due to fistulizing inflammatory bowel disease. She has been struggling with these fistulas for at least the last 5 years per her report. Her history of inflammatory bowel disease was diagnosis years ago with ulcerative colitis. She is status post proctocolectomy with end ileostomy. She reports that shehas developed fistulas in the last 5 years and has had themsurrounding her stomathroughout thistime. She currently has 2 active draining fistula. She has noted decreasedrainage from the fistulaon the Cipro and the Flagyl. Unfortunately budesonide was cost prohibitive for her. She does have some intermittent abdominal discomfort. She reports that she empties her ostomy approximately5-8 times daily. She denies any specificbloodnoted in the stool or around her stoma. Denies nausea or vomiting. Does have history ofgastric bypasswith EGDrecently. She does report she was on infusionmany years agofor her inflammatory bowel disease that "did not work". 04/24/2023: Negative quantiferon gold testing; negative infliximab antibodies 05/06/2023: CT enterography obtained due to history of inflammatory bowel disease demonstrated 1. Re-demonstration of a parastomal hernia. There are again noted to be multiple connections between thebowel and the skin surface which may represent enterocutaneous fistulas. Correlation with physical exam is recommended. Postsurgical changes 2. Hepatic cirrhosis. 05/14/2023: [facility] IBD multidisciplinary conference recommendations including reconsult with surgeonfor repair/resection of fistulized bowel and re-evaluaton for medical management after surgery. 06/03/2023 GI OV:The patient presents today for follow-up of fistulizing inflammatory bowel disease. Her daughter accompanies her today. She has had no significant change since her last office visit. Testing that was completed in the interim since her last office visit including laboratory testing, CT, IBD multidisciplinary conferencerecommendations were reviewed with the patient today.She has 1 draining fistulathat is underneath her ostomy appliance. The second fistula is no longer draining. These wereexamined today. She completed antibiotics approximately 2weeks ago. She is quite emphatic that she does not want additionalsurgerybut is willing to meet withcolorectal surgeon. 07/29/2023 IBD Clinic No Show 09/09/2023 IBD Clinic No Show 11/09/2023 GI ([place]): Patient presents today via telephonefor first-time appointment with myself. She states that she has been fine with no major changes. She states janina continues on the antibiotics that Dr. Formanprescribed for her. She states that they are hard on her stomachbut thaton themneither one of her fistulas are currently draining. Patient states that she has no change to heroutput. She continues to empty her bag 2-3 times daily. Denies hematochezia, mucus,or melena. Upon trying to gain more information from patient she believes janina was referredto Dr. Forman for surgery, to which she does not wantand the plan was to startan injectable medicationinstead. Unfortunately, patient has had significant access issueswith contacting the IBD clinic. Initially there was an appointment in Junethe patient does not havevideocapabilities for televideo. According to patienther August appointment was coordinated with her daughter,howeverthey were unable toaccess the televideoat the time of appointment. She isnot interested/unableto travel all the way to [place] for appointments and would liketelephoneappointmentsor televideo if this can be coordinatedand work. 12/22/2022 IBD Clinic Scheduled IBD History - Diagnosis:Ulcerative colitis diagnosed about 20 years in [place] [place] fistulizing disease for ~ 5 years - Previous treatments:steroids prn; ?biologic after surgery(reports it didn't work) - Current treatment: prn antibiotics (Cipro and Flagyl) - IBD surgeries: complete proctocolectomy and end-ileostomy (~20 years); parastomal hernias (x 2-3)requiring repairs - Extraintestinal manifestations (joint, eye, mouth ulcers, skin lesions): abdominal fistulas and abscesses - Upper GI or Perianal involvement: none - FHx of IBD or CRC:Deniesfamilyhistory of colorectal cancer, liver disease, IBD, IBS, pancreatic disease, celiac disease; Paternal grandmother of a bowel blockage - Smoking history:Never smoked - Social history: Very rarely, glass of wine. Denies recreational drug use including marijuana. Retired. Worked for [employer] for 19 years. (2021). Three adult children with multiple grandchildren and great-grandchildren. Lives alone with daughter living close by. No further complaints or concerns today. Physical Exam General:Alert and oriented, No acute distress HENT:Normal hearing Respiratory: Respiration are non-labored and no evidence of respiratory distress is noted Psychiatric:Cooperative, appropriate mood & affect, Normal judgement Assessment/Plan 1.Ileostomy in place 2.Fistula 3.Ulcerative colitis - I have stressed to pt the importance of keeping her Dec [address] Blackwood. She needs to be following with IBD for your complicated presentation. Pt previously referred to IBD by her GI provider Dr. Bonilla. We will reach out to Dr. Blackwood to verify if he will allow pt to complete Televideo appt that day. Pt is agreeable to coming to our office for this appt, for our staff to assist with televideo. Per patient report diagnosed approximately 20 years ago as ulcerative colitiswith rapid developmentpromptingcomplete proctocolectomy with end ileostomy Patient again notes thatshehad infusions after her surgery "did not work". Ileoscopy 08/2022 with evidence ofchronicileitis It is possible thatpatient's disease has advanced to Crohn's diseasewithenterocutaneous fistula Negative QuantiFERONgoldtuberculosistesting,Remicade activity level and antibody testing,[id number] genetic testing (not completed) Patient has hadhepatitis B testing 12/2022 which demonstrated negative serology and she has begun hepatitis B vaccination series, Nurse appt this Thursday to complete series. Multidisciplinary inflammatory bowel disease clinic recommends reevaluation by CR surgical team, who has recommended disease control with medical management. -Will wait to hearif drainage from abdominal fistula becomes more purulent, currently has about10 days of abx remaining. - CT enterographydemonstrated multiple enterocutaneous fistulas - Wound/ostomy referral previously placed due to skin concerns with draining abdominal wall fistulas 4.Cirrhosis Not addressed on telephone visit today. Patient will needher routine follow-up with Dr. Bonilla who manages her cirrhosisscheduled. GI follow up in2 months [address] Dr[address] Bonilla for Cirrhosis management, sooner if needed. I have spent 30 minutes in evaluation, education and documentation of this pt in both face to face and non-face to face activities. Problem List/Past Medical History Ongoing Anemia Arthritis, rheumatoid Cirrhosis Diabetes Diabetic neuropathy Fistula Hypothyroidism Ileostomy in place Tinea unguium Ulcerative colitis Vitamin D deficiency Procedure/Surgical History CT enterography (05/06/2023)Ultrasound--abdomen (04/03/2023)Upper GI (gastrointestinal) endoscopy (03/10/2023)Colonoscopy (09/23/2022)CT of abdomen and pelvis (09/05/2022)Medical records review (05/07/2021)Gastric bypassThyroidectomyTotal knee replacementTotal colectomy and ileostomy Medications bifidobacterium infantis(Align) calcium-vitamin D(Calcium 600+D) cholecalciferol(Vitamin D3 1000 intl units (25 mcg) oral tablet), 25 mcg= 1 tab, PO, bid ciprofloxacin(ciprofloxacin 500 mg oral tablet), 1 tab, PO, q12h cyanocobalamin(Vitamin B12) diclofenac topical(diclofenac 1% topical gel) hepatitis B adult vaccine(hepatitis B adult vaccine 20 mcg/mL), 20 mcg= 1 mL, IM, ONCE levothyroxine(levothyroxine 200 mcg (0.2 mg) oral tablet), 200 mcg= 1 tab, PO, Daily, 4 refills levothyroxine(levothyroxine 25 mcg (0.025 mg) oral tablet), 25 mcg= 1 tab, PO, Daily, 2 refills metFORMIN(metFORMIN 500 mg oral tablet), 500 mg= 1 tab, PO, bid, 2 refills metroNIDAZOLE(metroNIDAZOLE 500 mg oral tablet), 1 tab, PO, q8h nystatin topical(nystatin 100,000 units/g topical powder), See Instructions, 1 refills potassium chloride(Potassium Chloride (Eqv-K-Tab) 20 mEq oral tablet, extended release), 20 mEq= 1 tab, PO, Daily, 5 refills pravastatin(pravastatin 40 mg oral tablet), 40 mg= 1 tab, PO, Daily, 1 refills torsemide(torsemide 10 mg oral tablet), 10 mg= 1 tab, PO, Daily, 2 refills Allergies red dye(Severe)Anaphylaxis No Known Medication Allergies Social History Smoking Status Never smoked cigarettes Family History Breast cancer: Sister. Cardiovascular disease: Mother. Heart attack: Mother. Malignant tumor of lung: Father.Negative: Brother. Stroke: Mother. Health Status Family Member(s) Immunizations Vaccine Date Status hepatitis B adult vaccine 05/04/2023 Given hepatitis B adult vaccine 03/30/2023 Given influenza virus vaccine, inactivated 10/13/2022 Given SARS-CoV-2 (COVID-19) mRNA BNT-162b2 vax 10/23/2021 Recorded Comments : 2022-07-10: Historical information-source unspecified SARS-CoV-2 (COVID-19) mRNA BNT-162b2 vax 03/16/2021 Recorded SARS-CoV-2 (COVID-19) mRNA BNT-162b2 vax 02/22/2021 Recorded Recommendations Health Maintenance Pending(in the next year) OverDue Adult Influenza Vaccine due05/30/23and every 1year Due Adult COVID-19 Vaccination due11/09/23Unknown Frequency Adult Tdap/Td Vaccine due11/09/23Unknown Frequency Diabetes Nephropathy Management due11/09/23Unknown Frequency Diabetic Eye Exam due11/09/23Unknown Frequency Medicare Annual Wellness Visit due11/09/23and every 1year Osteoporosis Screening due11/09/23One-time only Pneumococcal Vaccine Older Adults due11/09/23One-time only Shingles Vaccine due11/09/23One-time only Due In Future Body Mass Index not due until08/24/24and every 366day Diabetes Management A1c not due until09/23/24and every 366day Satisfied(in the past 1 year) Satisfied Body Mass Index on08/24/23.Satisfied by JULIANA Gipson Jamie Diabetes Management A1c on09/23/23.Satisfied by Contributor_system, [email or web address] Hepatitis C Screening on01/07/23.Satisfied by Contributor_system, [email or web address] Lipid Screening on09/23/23.Satisfied by Contributor_system, [email or web address] Electronic Signature on File CC: Jaime Blackwood MD,PhD [address] [place] [address] [address] [facility] [address] Electronically Reviewed/Signed by: Lyn Johns PA-C Author Signature Dt/Tm:11/09/2023 12:53 PM Division of Gastroenterology Electronically Reviewed/Signed by: Cuong Bonilla MD Cosigner Signature Dt/Tm: 11/10/2023 07:46 AM Division of Gastroenterology [facility] Patient Care team information Care Team Personnel Name: CHONG Ayala, Sola Barker Position: Physician - Podiatry Member Role: Primary Care Provider Address: Address: [address] [place] [address] [place] Care Team Related Persons Name: NOHELIA HOLLINS Address: [place] Address: home [address], [place] [id number]
--- OUTSIDE RECORDS SUMMARY | 2023-12-07 10:13 | External Medical Summary | Continuity of Care Document ---
Author Name Unknown Organization [facility] [address] [place] [address] KINDRA BARNHART [phone] Care Team Providers Care Lock And Dam Equipment Repairer Name Role Phone Sola Ayala Primary Care Physician [phone] [facility]counter [facility] [id number] Date(s): 07/31/23 - 07/31/23 [facility] [address] [facility] [address], [address], [address] KINDRA Beckham [address] [phone] Discharge Disposition: Home or Self Care Attending Physician: MD Christine Charlotte Allergies, Adverse Reactions, Alerts No Known Medication [...] 15:11:00 EDT Start Date: 07/10/22 Status: Ordered Cipro 500 mg oral tablet Start: 07/03/23 13:38:00 EDT, 1 tab, PO, q12h, Disp# 56 tab, Refills: 1, Pharmacy: [facility] [id number] Start Date: 07/03/23 Stop Date: 08/28/23 Status: Ordered diclofenac 1% topical gel APPLY 2 GRAMS TOPICALLY TO SINGLE ELBOW, WRIST OR HAND (HAND INCLUDES PALM/FINGERS/BACK OF HAND) 4 TIMES DAILY Start Date: 03/30/23 Status: Ordered Flagyl 500 mg oral tablet Start: 07/03/23 13:38:00 EDT, 1 tab, PO, q8h, Disp# 84 tab, Refills: 1, Pharmacy: [facility] 2229 Start Date: 07/03/23 Stop Date: 08/28/23 Status: Ordered hepatitis B adult vaccine 20 mcg/mL Start: 05/04/23 11:23:00 EDT, 1 mL, IM, ONCE, Disp# 1 mL, given to patient Start Date: 05/04/23 Status: Ordered levothyroxine 200 mcg (0.2 mg) oral tablet Start: 03/06/23 14:50:00 EDT, 1 tab, PO, Daily, Disp# 30 tab, Refills: 4, Pharmacy: [facility] 2229 Start Date: 03/06/23 Stop Date: 08/03/23 Status: Ordered levothyroxine 25 mcg (0.025 mg) oral tablet Start: 07/22/23 17:44:00 EDT, 1 tab, PO, Daily, Disp# 30 tab, Refills: 2, Note to Pharmacy: patientto take 225 mg of levothyroxine., Pharmacy: [facility] 2229 Start Date: 07/22/23 Stop Date: 10/20/23 Status: Ordered metFORMIN 500 mg oral tablet Start: 04/20/23 13:09:00 EDT, 1 tab, PO, bid, Disp# 180 tab, Refills: 2, Pharmacy: [facility] Start Date: 04/20/23 Stop Date: 01/15/24 Status: Ordered nystatin 100,000 units/g topical powder Start: 06/03/23 10:48:00 EDT, See Instructions, Disp# 15 g, Refills: 1, Apply topically to affectedabdominal area 2-3 times daily, Pharmacy: [facility] 2229 Start Date: 06/03/23 Status: Ordered potassium chloride 20 mEq oral powder for reconstitution Start: 04/20/23 13:11:00 EDT, 1 each, PO, ONCE, Disp# 90 cap, Refills: 2, Pharmacy: [facility] 2229 Start Date: 04/20/23 Status: Ordered pravastatin 40 mg oral tablet Start: 04/20/23 13:10:00 EDT, 1 tab, PO, Daily, Disp# 90 tab, Refills: 1, Pharmacy: [facility] Start Date: 04/20/23 Stop Date: 10/17/23 Status: Ordered torsemide 10 mg oral tablet Start: 04/20/23 13:10:00 EDT, 1 tab, PO, Daily, Disp# 90 tab, Refills: 2, Pharmacy: [facility]229 Start Date: 04/20/23 Stop Date: 01/15/24 Status: Ordered Vitamin B12 Start: 07/10/22 15:10:00 EDT Start Date: 07/10/22 Status: Ordered Vitamin D3 1000 intl units (25 mcg) oral tablet Start: 10/13/22 10:07:00 EST, 1 tab, PO, bid Start Date: 10/13/22 Status: Ordered Problem List Condition Confirmation Course Effective Dates Status H ealth Status Informant Anemia Confirmed Active Callus Confirmed Active Cirrhosis Confirmed Active Inflammatory bowel [...] hernia, rectal stump, umbilical hernia, osteopenisa [facility] 05/07/2021 and 12/28/20 Office visits s/u 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 CMP 10/2020 gluc 113 H, CMP 01/2022 [id number] H, Hgb a1c 6.2 H, 9bilateral knees Social History Social History Type Response Smoking Status Never smoked cigaret fadi Sex Patient Care team information Care Team Personnel Name: CHONG Aayla, Sola Barker Position: Physician - Podiatry Member Role: Primary Care Provider Address: Address: [address] [facility] [address] [place] [id number] [place] Care Team Related Persons Name: NOHELIA HOLLINS Address: [place] Address: home [address] [place], [place] [id number]
--- OUTSIDE RECORDS SUMMARY | 2023-12-07 10:13 | External Medical Summary | Continuity of Care Document ---
Author Name Unknown Organization [facility] [address] [place] [address] KINDRA BARNHART [phone] Care Team Providers Care Specialty Plant Supervisor Name Role Phone Sola Ayala Primary Care Physician [phone] Encounter [facility] [id number] Date(s): 07/29/23 - 07/29/23 [facility] [address] [facility] [address], [address], [address] KINDRA Beckham [address] [phone] Discharge Disposition: Home or Self Care Attending Physician: MD Griffith Emmanuelle Referring Physician: IKER Vela Janet Griffith Allergies, Adverse Reactions, Alerts No Known Medication [...] q12h, Disp# 56 tab, Refills: 1, [id number] Start Date: 07/03/23 Stop Date: 08/28/23 Status: Ordered diclofenac 1% topical gel APPLY 2 GRAMS TOPICALLY TO SINGLE ELBOW, WRIST OR HAND (HAND INCLUDES PALM/FINGERS/BACK OF HAND) 4 TIMES DAILY Start Date: 03/30/23 Status: Ordered Flagyl 500 mg oral tablet Start: 07/03/23 13:38:00 EDT, 1 tab, PO, q8h, Disp# 84 tab, Refills: 1, Pharmacy: [facility] 2229 Start Date: 07/03/23 Stop Date: 08/28/23 Status: Ordered hepatitis B adult vaccine 20 mcg/mL Start: 05/04/23 11:23:00 EDT, 1 mL, IM, ONCE, Disp# 1 mL, given to patient Start Date: 05/04/23 Status: Ordered levothyroxine 200 mcg (0.2 mg) oral tablet Start: 03/06/23 14:50:00 EDT, 1 tab, PO, Daily, Disp# 30 tab, Refills: 4, Pharmacy: [facility] 2229 Start Date: 03/06/23 Stop Date: 08/03/23 Status: Ordered levothyroxine 25 mcg (0.025 mg) oral tablet Start: 07/22/23 17:44:00 EDT, 1 tab, PO, Daily, Disp# 30 tab, Refills: 2, Note to Pharmacy: patientto take 225 mg of levothyroxine., Pharmacy: [facility] 2229 Start Date: 07/22/23 Stop Date: 10/20/23 Status: Ordered metFORMIN 500 mg oral tablet Start: 04/20/23 13:09:00 EDT, 1 tab, PO, bid, Disp# 180 tab, Refills: 2, Pharmacy: [facility] Start Date: 04/20/23 Stop Date: 01/15/24 Status: Ordered nystatin 100,000 units/g topical powder Start: 06/03/23 10:48:00 EDT, See Instructions, Disp# 15 g, Refills: 1, Apply topically to affectedabdominal area 2-3 times daily, Pharmacy: [facility] 2229 Start Date: 06/03/23 Status: Ordered potassium chloride 20 mEq oral powder for reconstitution Start: 04/20/23 13:11:00 EDT, 1 each, PO, ONCE, Disp# 90 cap, Refills: 2, Pharmacy: [facility] 2229 Start Date: 04/20/23 Status: Ordered pravastatin 40 mg oral tablet Start: 04/20/23 13:10:00 EDT, 1 tab, PO, Daily, Disp# 90 tab, Refills: 1, Pharmacy: [facility] 2229 Start Date: 04/20/23 Stop Date: 10/17/23 Status: Ordered torsemide 10 mg oral tablet Start: 04/20/23 13:10:00 EDT, 1 tab, PO, Daily, Disp# 90 tab, Refills: 2, Pharmacy: [facility] 2229 Start Date: 04/20/23 Stop Date: [...] hernia, rectal stump, umbilical hernia, osteopenisa [facility] 05/07/2021 and 12/28/20 Office visits s/u 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 CMP 10/2020 gluc 113 H, CMP 01/2022 [id number] H, Hgb a1c 6.2 H, 9bilateral knees Social History Social History Type Response Smoking Status Never smoked cigaret fadi Sex Patient Care team information Care Team Personnel Name: CHONG Ayala, Sola Barker Position: Physician - Podiatry Member Role: Primary Care Provider Address: Address: [address] [facility] [address] [place] [address], [place] [address] Care Team Related Persons Name: NOHELIA HOLLINS Address: [place] Address: home [address] [facility], [place] [id number]
--- OUTSIDE RECORDS SUMMARY | 2023-12-07 10:13 | External Medical Summary | Continuity of Care Document ---
Author Name Unknown Organization [address] [phone] Care Team Providers Care Herbologist Name Role Phone Tanisha Reyes Primary Care Physician [phone] [facility] [id number] Date(s): 07/03/23 - 07/03/[address] [address] [phone] Encounter Diagnosis Body mass index [BMI] 60.0-69.9, adult(Discharge Diagnosis) - 07/03/23 Crohn's disease(Discharge Diagnosis) - 07/03/23 Ileostomy status(Discharge Diagnosis) - 07/03/23 Enterocutaneous fistula(Discharge Diagnosis) - 07/03/23 Discharge Disposition: Home or Self Care Attending Physician: MD Dasia, Farhan Malone Referring Physician: CHONG Ayala Christina L Allergies, Adverse Reactions, Alerts No Known Medication [...] q12h, Disp# 56 tab, Refills: 1, Pharmacy: [id number] Start Date: 07/03/23 Stop Date: 08/28/23 Status: Ordered diclofenac 1% topical gel APPLY 2 GRAMS TOPICALLY TO SINGLE ELBOW, WRIST OR HAND (HAND INCLUDES PALM/FINGERS/BACK OF HAND) 4 TIMES DAILY Start Date: 03/30/23 Status: Ordered Flagyl 500 mg oral tablet Start: 07/03/23 13:38:00 EDT, 1 tab, PO, q8h, Disp# 84 tab, Refills: 1, Pharmacy: [facility] 2229 Start Date: 07/03/23 Stop Date: 08/28/23 Status: Ordered hepatitis B adult vaccine 20 mcg/mL Start: 05/04/23 11:23:00 EDT, 1 mL, IM, ONCE, Disp# 1 mL, given to patient Start Date: 05/04/23 Status: Ordered levothyroxine 200 mcg (0.2 mg) oral tablet Start: 03/06/23 14:50:00 EDT, 1 tab, PO, Daily, Disp# 30 tab, Refills: 4, Pharmacy: [facility] 2[facility] Start Date: 03/06/23 Stop Date: 08/03/23 Status: Ordered levothyroxine 25 mcg (0.025 mg) oral tablet Start: 04/20/23 13:38:00 EDT, 1 tab, PO, Daily, Disp# 30 tab, Refills: 2, Note to Pharmacy: patientto take 225 mg of levothyroxine., Pharmacy: [facility] 2229 Start Date: 04/20/23 Stop Date: 07/19/23 Status: Ordered metFORMIN 500 mg oral tablet Start: 04/20/23 13:09:00 EDT, 1 tab, PO, bid, Disp# 180 tab, Refills: 2, Pharmacy: [id number] Start Date: 04/20/23 Stop Date: 01/15/24 Status: Ordered nystatin 100,000 units/g topical powder Start: 06/03/23 10:48:00 EDT, See Instructions, Disp# 15 g, Refills: 1, Apply topically to affectedabdominal area 2-3 times daily, Pharmacy: [facility] 2229 Start Date: 06/03/23 Status: Ordered potassium chloride 20 mEq oral powder for reconstitution Start: 04/20/23 13:11:00 EDT, 1 each, PO, ONCE, Disp# 90 cap, Refills: 2, Pharmacy: [facility] 2229 Start Date: 04/20/23 Status: Ordered pravastatin 40 mg oral tablet Start: 04/20/23 13:10:00 EDT, 1 tab, PO, Daily, Disp# 90 tab, Refills: 1, Pharmacy: [facility]229 Start Date: 04/20/23 Stop Date: 10/17/23 Status: Ordered torsemide 10 mg oral tablet Start: 04/20/23 13:10:00 EDT, 1 tab, PO, Daily, Disp# 90 tab, Refills: 2, Pharmacy: [facility] Start Date: 04/20/23 Stop Date: 01/15/24 Status: Ordered Vitamin B12 Start: 07/10/22 15:10:00 EDT Start Date: 07/10/22 Status: Ordered Vitamin D3 1000 intl units (25 mcg) oral tablet Start: 10/13/22 10:07:00 EST, 1 tab, PO, bid Start Date: 10/13/22 Status: Ordered Mental Status 07/03/23 Barriers to Learning one year None evide nt Mandatory Health Literacy Documentation Yes Communication Barrier Present No Health Literacy Communication Barriers N ever Primary Language Korean Problem List Condition Confirmation Course Effective Dates [...] Effective Dates Health Status Clinical Service Informant Body mass index [BMI] 60.0-69.9, adult Discharge Diagnosis 07/03/23 Non-Specified Crohn's disease Discharge Diagnosis 07/03/23 Non-Specified Enterocutaneous fistula Discharge Diagnosis 07/03/23 Non-Specified Ileostomy status Discharge Diagnosis 07/03/23 Non-Specified Procedures Procedure Date Related Diagnosis Body Site Status CT enterography 1 05/06/23 [facility] ed Ultrasound--abdomen 2, 3 04/03/23 Completed Upper [...] CMP 10/2020 gluc 113 H, CMP 01/2022 [id number] H, Hgb a1c 6.2 H, 9bilateral knees Vital Signs Most recent to oldest [Reference Range]: 1 Height 167.5 cm (07/03/23 1:07 PM) Patient Weight 170.3 kg (07/03/23 1:07 PM) Body Mass Index 60.7 kg/m2 (07/03/23 1:07 PM) Social History Social History Type Response Smoking Status Never smoked cigaret fadi Sex Patient Care team information Care Team Personnel Name: MD Reyes Margaret Position: Resident Member Role: Primary Care Provider Address: Address: [facility] [address] [address] [place] Care Team Related Persons Name: NOHELIA HOLLINS Address: [place] Address: home [address] [place], [place] [phone]
--- OUTSIDE RECORDS SUMMARY | 2023-12-07 10:13 | External Medical Summary | Continuity of Care Document ---
Author Name Unknown Organization [facility] [address] [place] [address] KINDRA BARNHART [phone] Care Team Providers Care Dental Equipment Repairer Name Role Phone Sola Ayala Primary Care Physician [phone] [id number] Date(s): 08/14/23 - 08/14/23 [facility] [address] [facility] [address], [address], [address] KINDRA Beck[place] [address] [phone] Discharge Disposition: Home or Self Care Attending Physician: MD Vicente, Christopher Referring Physician: CHONG Ayala Christina L Allergies, [...] q12h, Disp# 56 tab, Refills: 1, Pharmacy: [facility] [id number] Start Date: 07/03/23 Stop Date: 08/28/23 Status: Ordered diclofenac 1% topical gel APPLY 2 GRAMS TOPICALLY TO SINGLE ELBOW, WRIST OR HAND (HAND INCLUDES PALM/FINGERS/BACK OF HAND) 4 TIMES DAILY Start Date: 03/30/23 Status: Ordered Flagyl 500 mg oral tablet Start: 07/03/23 13:38:00 EDT, 1 tab, PO, q8h, Disp# 84 tab, Refills: 1, Pharmacy: [facility] 2229 Start Date: 07/03/23 Stop Date: 08/28/23 Status: Ordered hepatitis B adult vaccine 20 mcg/mL Start: 05/04/23 11:23:00 EDT, 1 mL, IM, ONCE, Disp# 1 mL, given to patient Start Date: 05/04/23 Status: Ordered levothyroxine 200 mcg (0.2 mg) oral tablet Start: 08/14/23 13:45:00 EDT, 1 tab, PO, Daily, Disp# 30 tab, Refills: 4, Pharmacy: [facility] 2229 Start Date: 08/14/23 Stop Date: 01/11/24 Status: Ordered levothyroxine 25 mcg (0.025 mg) oral tablet Start: 07/22/23 17:44:00 EDT, 1 tab, PO, Daily, Disp# 30 tab, Refills: 2, Note to Pharmacy: patientto take 225 mg of levothyroxine., Pharmacy: [facility] 2229 Start Date: 07/22/23 Stop Date: 10/20/23 Status: Ordered metFORMIN 500 mg oral tablet Start: 04/20/23 13:09:00 EDT, 1 tab, PO, bid, Disp# 180 tab, Refills: 2, Pharmacy: [facility] Start Date: 04/20/23 Stop Date: 01/15/24 Status: Ordered nystatin 100,000 units/g topical powder Start: 06/03/23 10:48:00 EDT, See Instructions, Disp# 15 g, Refills: 1, Apply topically to affectedabdominal area 2-3 times daily, Pharmacy: [facility] 2229 Start Date: 06/03/23 Status: Ordered potassium chloride 20 mEq oral powder for reconstitution Start: 04/20/23 13:11:00 EDT, 1 each, PO, ONCE, Disp# 90 cap, Refills: 2, Pharmacy: [facility] Start Date: 04/20/23 Status: Ordered pravastatin 40 mg oral tablet Start: 04/20/23 13:10:00 EDT, 1 tab, PO, Daily, Disp# 90 tab, Refills: 1, Pharmacy: [facility] Start Date: 04/20/23 Stop Date: 10/17/23 Status: Ordered torsemide 10 mg oral tablet Start: 04/20/23 13:10:00 EDT, 1 tab, PO, Daily, Disp# 90 tab, Refills: 2, Pharmacy: [facility] Start Date: 04/20/23 [...] rectal stump, umbilical hernia, osteopenisa 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 CMP 10/2020 gluc 113 H, CMP 01/2022 [id number] H, Hgb a1c 6.2 H, 9bilateral knees Social History Social History Type Response Smoking Status Never smoked cigaret fadi Sex Patient Care team information Care Team Personnel Name: CHONG Ayala, Sola Barker Position: Physician - Podiatry Member Role: Primary Care Provider Address: Address: [address] [facility] [address] [place] [address], [place] [address] Care Team Related Persons Name: NOHELIA HOLLINS Address: [place] Address: home [address] [facility], [place] [phone]
--- OUTSIDE RECORDS SUMMARY | 2023-12-07 10:13 | External Medical Summary | Continuity of Care Document ---
Author Name Unknown Organization [facility] [address] [place] [address] KINDRA BARNHART [phone] Care Team Providers Care General Merchandise Manager Name Role Phone Sola Ayala Primary Care Physician [phone] [id number] Date(s): 09/09/23 - 09/09/23 [facility] 3[address] [facility] [address], [address], [address] KINDRA Beckham [address] [phone] Discharge Disposition: Home or Self Care Attending Physician: MD Griffith Emmanuelle Referring Physician: CHONG Ayala Christina L Allergies, [...] q12h, Disp# 56 tab, Refills: 1, Pharmacy: [facility] [id number] Start Date: 07/03/23 Stop Date: 08/28/23 Status: Ordered diclofenac 1% topical gel APPLY 2 GRAMS TOPICALLY TO SINGLE ELBOW, WRIST OR HAND (HAND INCLUDES PALM/FINGERS/BACK OF HAND) 4 TIMES DAILY Start Date: 03/30/23 Status: Ordered Flagyl 500 mg oral tablet Start: 07/03/23 13:38:00 EDT, 1 tab, PO, q8h, Disp# 84 tab, Refills: 1, Pharmacy: [facility] 2229 Start Date: 07/03/23 Stop Date: 08/28/23 Status: Ordered hepatitis B adult vaccine 20 mcg/mL Start: 05/04/23 11:23:00 EDT, 1 mL, IM, ONCE, Disp# 1 mL, given to patient Start Date: 05/04/23 Status: Ordered levothyroxine 200 mcg (0.2 mg) oral tablet Start: 08/14/23 13:45:00 EDT, 1 tab, PO, Daily, Disp# 30 tab, Refills: 4, Pharmacy: [facility] 2229 Start Date: 08/14/23 Stop Date: 01/11/24 Status: Ordered levothyroxine 25 mcg (0.025 mg) oral tablet Start: 07/22/23 17:44:00 EDT, 1 tab, PO, Daily, Disp# 30 tab, Refills: 2, Note to Pharmacy: patientto take 225 mg of levothyroxine., Pharmacy: [facility] 2229 Start Date: 07/22/23 Stop Date: 10/20/23 Status: Ordered metFORMIN 500 mg oral tablet Start: 04/20/23 13:09:00 EDT, 1 tab, PO, bid, Disp# 180 tab, Refills: 2, Pharmacy: [facility] Start Date: 04/20/23 Stop Date: 01/15/24 Status: Ordered nystatin 100,000 units/g topical powder Start: 06/03/23 10:48:00 EDT, See Instructions, Disp# 15 g, Refills: 1, Apply topically to affectedabdominal area 2-3 times daily, Pharmacy: [facility] 2229 Start Date: 06/03/23 Status: Ordered Potassium Chloride (Eqv-K-Tab) 20 mEq oral tablet, extended release Start: 09/02/23 13:23:00 EDT, 1 tab, PO, Daily, Disp# 90 tab, Refills: 5, Pharmacy: [facility] Start Date: 09/02/23 Stop Date: 02/23/25 Status: Ordered pravastatin 40 mg oral tablet Start: 04/20/23 13:10:00 EDT, 1 tab, PO, Daily, Disp# 90 tab, Refills: 1, Pharmacy: [facility] Start Date: 04/20/23 Stop Date: 10/17/23 Status: Ordered torsemide 10 mg oral tablet Start: 04/20/23 13:10:00 EDT, 1 tab, PO, Daily, Disp# 90 tab, Refills: 2, Pharmacy: 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 CMP 10/2020 gluc 113 H, CMP 01/2022 [id number] H, Hgb a1c 6.2 H, 9bilateral knees Social History Social History Type Response Smoking Status Never smoked cigaret fadi Sex Patient Care team information Care Team Personnel Name: CHONG Ayala, Sola Braker Position: Physician - Podiatry Member Role: Primary Care Provider Address: Address: [address] [facility] [address] [place] [address] [place] Care Team Related Persons Name: NOHELIA HOLLINS Address: [place] Address: home [address] [place], [place] [phone]
--- OUTSIDE RECORDS SUMMARY | 2023-12-07 10:13 | External Medical Summary | Continuity of Care Document ---
Author Name Unknown Organization [place] [address] [place] [phone] Care Team Providers Care Welfare Visitor Name Role Phone Sloa Ayala Primary Care Physician [phone] [id number] Date(s): 08/24/23 - 08/24/23 [facility] [address] [address] [phone] Encounter Diagnosis Hypothyroidism(Discharge Diagnosis) - 08/24/23 Ulcerative colitis(Discharge Diagnosis) - 08/24/[address](Discharge Diagnosis) - 08/24/23 Body mass index [BMI] 60.0-69.9, adult(Discharge Diagnosis) - 08/24/23 Vaccine counseling(Discharge Diagnosis) - 08/24/23 Needs flu shot(Discharge Diagnosis) - 08/24/23 Vaccine for streptococcus pneumoniae and influenza(Discharge Diagnosis) - 08/24/23 Diabetes(Discharge Diagnosis) - 08/24/23 Cirrhosis(Discharge Diagnosis) - 08/24/23 Discharge Disposition: Home or Self Care Attending Physician: MD Jose Guadalupe Leslie Allergies, Adverse Reactions, Alerts No Known Medication Allergies Substance Reaction Severity Status red dye Anaphylaxis Severe Active Assessment and Plan Extracted from: Title:f/u DM, hypothyroidism, HLD Author:MD Amy, Tanisha Date:08/24/23 1.Hypothyroidism Chronic condition, stable Goal:Resolution Data:_ Plan: TSH 4.20 at last check. Increased to 225 mcg. Will recheck level and adjust as indicated 2.Ulcerative colitis Chronic condition, stable Goal:Resolution Data:_ Plan: Condition complicated by multiple infections. Follows with colorectal. 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 Follows with colorectal. 4.Diabetes Chronic condition, stable Goal:Resolution Data:unique tests ordered: _lipids CMP HbA1c Plan: Last HbA1c 6.4. Well controlled. Will recheck HbA1c and adjust as necessary. 5.Cirrhosis Chronic condition, stable Goal:Resolution Data:_ Plan: Follows with colorectal and GI. Will check CMP Immunizations Given and Recorded Vaccine Date Status [...] q12h, Disp# 56 tab, Refills: 1, Pharmacy: [facility] [id number] Start Date: 07/03/23 Stop Date: 08/28/23 Status: Ordered diclofenac 1% topical gel APPLY 2 GRAMS TOPICALLY TO SINGLE ELBOW, WRIST OR HAND (HAND INCLUDES PALM/FINGERS/BACK OF HAND) 4 TIMES DAILY Start Date: 03/30/23 Status: Ordered Flagyl 500 mg oral tablet Start: 07/03/23 13:38:00 EDT, 1 tab, PO, q8h, Disp# 84 tab, Refills: 1, Pharmacy: [facility] Start Date: 07/03/23 Stop Date: 08/28/23 Status: Ordered hepatitis B adult vaccine 20 mcg/mL Start: 05/04/23 11:23:00 EDT, 1 mL, IM, ONCE, Disp# 1 mL, given to patient Start Date: 05/04/23 Status: Ordered levothyroxine 200 mcg (0.2 mg) oral tablet Start: 08/14/23 13:45:00 EDT, 1 tab, PO, Daily, Disp# 30 tab, Refills: 4, Pharmacy: [facility] 2229 Start Date: 08/14/23 Stop Date: 01/11/24 Status: Ordered levothyroxine 25 mcg (0.025 mg) oral tablet Start: 07/22/23 17:44:00 EDT, 1 tab, PO, Daily, Disp# 30 tab, Refills: 2, Note to Pharmacy: patientto take 225 mg of levothyroxine., Pharmacy: [facility] 2229 Start Date: 07/22/23 Stop Date: 10/20/23 Status: Ordered metFORMIN 500 mg oral tablet Start: 04/20/23 13:09:00 EDT, 1 tab, PO, bid, Disp# 180 tab, Refills: 2, Pharmacy: [place] [id number] Start Date: 04/20/23 Stop Date: 01/15/24 Status: Ordered nystatin 100,000 units/g topical powder Start: 06/03/23 10:48:00 EDT, See Instructions, Disp# 15 g, Refills: 1, Apply topically to affectedabdominal area 2-3 times daily, Pharmacy: [facility] 2229 Start Date: 06/03/23 Status: Ordered potassium chloride 20 mEq oral powder for reconstitution Start: 08/24/23 11:18:00 EDT, 1 each, PO, ONCE, Disp# 30 tab, Refills: 4, Pharmacy: [facility] 2229 Start Date: 08/24/23 Stop Date: 12/07/23 Status: Ordered pravastatin 40 mg oral tablet Start: 04/20/23 13:10:00 EDT, 1 tab, PO, Daily, Disp# 90 tab, Refills: 1, Pharmacy: [facility] 2229 Start Date: 04/20/23 Stop Date: 10/17/23 Status: Ordered torsemide 10 mg oral tablet Start: 04/20/23 13:10:00 EDT, 1 tab, PO, Daily, Disp# 90 tab, Refills: 2, Pharmacy: [facility] 2229 Start Date: 04/20/23 Stop Date: 01/15/24 Status: Ordered Vitamin B12 Start: 07/10/22 15:10:00 EDT Start Date: 07/10/22 Status: Ordered Vitamin D3 1000 intl units (25 mcg) oral tablet Start: 10/13/22 10:07:00 EST, 1 tab, PO, bid Start Date: 10/13/22 Status: Ordered Mental Status 08/24/23 Barriers to Learning one year None evide nt Mandatory Health Literacy Documentation Yes Health Literacy Communication Barriers N ever Primary Language Swedish Problem List Condition Confirmation Course Effective Dates [...] Effective Dates Health Status Clinical Service Informant Hypothyroidism Discharge Diagnosis 08/24/23 Ulcerative colitis Discharge Diagnosis 08/24/[address] Discharge Diagnosis 08/24/23 Body mass index [BMI] 60.0-69.9, adult Discharge Diagnosis 08/24/23 Non-Specified Cirrhosis Discharge Diagnosis 08/24/23 Non-Specified Diabetes Discharge Diagnosis 08/24/23 Non-Specified Vaccine counseling Discharge Diagnosis 08/24/23 Non-Specified Vaccine for streptococcus pneumoniae and influenza Discharge Diagnosis 08/24/23 Non-Specified Needs flu shot Discharge Diagnosis 08/24/23 Non-Specified Procedures Procedure Date Related Diagnosis Body [...] CMP 10/2020 gluc 113 H, CMP 01/2022 [id number] H, Hgb a1c 6.2 H, 9bilateral knees Vital Signs Most recent to oldest [Reference Range]: 1 Height 167 cm (08/24/23 11:07 AM) Patient Weight 170 kg (08/24/23 11:07 AM) Body Mass Index 60.96 kg/m2 (08/24/23 11:07 AM) Temperature [36.5-37.9 DegC] 37 DegC (08/24/23 11:07 AM) Heart Rate 76 bpm (08/24/23 11:07 AM) Respiratory Rate 22 br/min (08/24/23 11:07 AM) Blood Pressure 120/68mmHg (08/24/23 11:07 AM) Cuff Pulse Pressure 52 mmHg (08/24/23 11:07 AM) Social History Social History Type Response Smoking Status Never smoked cigaret fadi Sex FCM Outpt Note * MD Shi Christopher: MODIFY MD Shi Christopher: MODIFY Event Display: FCM Outpt Note Authored Date: Chief Complaint pt here for follow up. no new concerns. History of Present Illness 77 y/o female with PMHx of DM2, cirrhosis, total colectomywith ileostomy 2/2 ulcerative colitis c/b fistula formation, hypothyroidism, RA here for a 3 month f/u on DM, RA, HLDand hypothyroidism. Patient's condition c/b fistula formation with subsequent infections.Is currently on antibiotics for the fistula. Colorectal did recommend surgery. Patient will likely decline this intervention. When patient stops antibiotics symptoms recur. No fevers or chills. Plan unclear at present. Has gained weight and reports continued fatigue. Increased levothyroxine to 225 mcg at last visit. Follows with GI, colorectal, and Rheum for other chronic medical conditions. Physical Exam Vitals & Measurements T:37C HR:76(Monitored) RR:22 BP:120/68 SpO2:98% HT:167cm WT:170kg WT:170.000kg(Dosing) BMI:60.96 PHQ2 Data(Data Documented on:08/24/2023 11:07) Emotional health assessment NEGATIVE Const: well appearing woman in NAD Head:NC AT Eye:EOMI, PERRL,Sclera white. Conjunctiva pink. Ears:Hearing grossly intact. Resp: CTAB No increased work of breathing. CV:RRR no m/r/g. Clinically well perfused. Abd: soft, non-distended, MSK: No gross deformities. Full ROM. Skin: warm, no rashes or bruises Assessment/Plan 1.Hypothyroidism Chronic condition, stable Goal:Resolution Data:_ Plan: TSH 4.20 at last check. Increased to 225 mcg. Will recheck level and adjust as indicated 2.Ulcerative colitis Chronic condition, stable Goal:Resolution Data:_ Plan: Condition complicated by multiple infections. Follows with colorectal. 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 Follows with colorectal. 4.Diabetes Chronic condition, stable Goal:Resolution Data:unique tests ordered: _lipids CMP HbA1c Plan: Last HbA1c 6.4. Well controlled. Will recheck HbA1c and adjust as necessary. 5.Cirrhosis Chronic condition, stable Goal:Resolution Data:_ Plan: Follows with colorectal and GI. Will check CMP Attestation Pt seen and examined in concert with Dr. Reyes, agree with history and physical as documented above. Plan reviewed in detail. Any corrections or additions are noted here - ongoing management of thyroid disease with TSH out of range with modification as noted and ongoing followup. Else as noted above. Problem List/Past Medical History Ongoing Anemia Arthritis, rheumatoid Cirrhosis Diabetes Diabetic neuropathy Fistula Hypothyroidism Ileostomy in place Inflammatory bowel disease (Crohn's disease) Tinea unguium Ulcerative colitis Vitamin D deficiency Procedure/Surgical History CT enterography (05/06/2023)Ultrasound--abdomen (04/03/2023)Upper GI (gastrointestinal) endoscopy (03/10/2023)Colonoscopy (09/23/2022)CT of abdomen and pelvis (09/05/2022)Medical records review (05/07/2021)Gastric bypassThyroidectomyTotal knee replacementTotal colectomy and ileostomy Medications bifidobacterium infantis(Align) calcium-vitamin D(Calcium 600+D) cholecalciferol(Vitamin D3 1000 intl units (25 mcg) oral tablet), 25 mcg= 1 tab, PO, bid ciprofloxacin(Cipro 500 mg oral tablet), 500 mg= 1 tab, PO, q12h, 1 refills cyanocobalamin(Vitamin B12) diclofenac topical(diclofenac 1% topical gel) hepatitis B adult vaccine(hepatitis B adult vaccine 20 mcg/mL), 20 mcg= 1 mL, IM, ONCE influenza virus vaccine, inactivated(influenza virus vaccine, inactivated HIGH- DOSE preservative-free QUADravalent IM susp), 0.7 mL, IM, ONCE levothyroxine(levothyroxine 25 mcg (0.025 mg) oral tablet), 25 mcg= 1 tab, PO, Daily, 2 refills levothyroxine(levothyroxine 200 mcg (0.2 mg) oral tablet), 200 mcg= 1 tab, PO, Daily, 4 refills metFORMIN(metFORMIN 500 mg oral tablet), 500 mg= 1 tab, PO, bid, 2 refills metroNIDAZOLE(Flagyl 500 mg oral tablet), 500 mg= 1 tab, PO, q8h, 1 refills nystatin topical(nystatin 100,000 units/g topical powder), See Instructions, 1 refills pneumococcal 20-valent conjugate vaccine(pneumococcal vaccine (PCV20)), 0.5 mL, IM, ONCE potassium chloride(potassium chloride 20 mEq oral powder for reconstitution), 20 mEq= 1 each, PO, ONCE, 4 refills pravastatin(pravastatin 40 mg oral tablet), 40 [...] due05/30/23and every 1year Due Adult COVID-19 Vaccination due08/24/23Unknown Frequency Adult Tdap/Td Vaccine due08/24/23Unknown Frequency Diabetes Nephropathy Management due08/24/23Unknown Frequency Diabetic Eye Exam due08/24/23Unknown Frequency Medicare Annual Wellness Visit due08/24/23and every 1year Osteoporosis Screening due08/24/23One-time only Pneumococcal Vaccine Older Adults due08/24/23One-time only Shingles Vaccine due08/24/23One-time only Due In Future Diabetes Management A1c not due until04/15/24and every 1year Body Mass Index not due until08/23/24and every 1year Satisfied(in the past 1 year) Satisfied Adult Influenza Vaccine on10/13/22.Satisfied by JULIANA Cosby Rachel Body Mass Index on08/24/23.Satisfied by JULIANA Gipson Jamie Diabetes Management A1c on04/16/23.Satisfied by Contributor_system, [employer] Hepatitis C Screening on01/07/23.Satisfied by Contributor[employer]system, [email or web address] Electronic Signature on File Electronically Reviewed/Signed by: Tanisha Reyes MD Author Signature Dt/Tm:08/24/2023 11:32 AM Resident Department of Family Medicine Electronically Reviewed/Signed by: Roosevelt Shi MD Cosigner Signature Dt/Tm: 08/25/2023 03:46PM Department of Family Medicine MP Patient Care team information Care Team Personnel Name: CHONG Ayala, Sola Barker Position: Physician - Podiatry Member Role: Primary Care Provider Address: Address: [address] [place] [address] [place] Care Team Related Persons Name: NOHELIA HOLLINS HEENA Address: [place] Address: home [address], [place] [id number]
--- OUTSIDE RECORDS SUMMARY | 2023-12-07 10:13 | External Medical Summary | Continuity of Care Document ---
Author Name Unknown Organization [id number] Address [address] [place] [phone] Care Team Providers Care Hand Engraver Name Role Phone Tanisha Reyes Primary Care Physician [phone] [id number] Date[facility]s): 07/15/23 - 07/15/23 [facility] [place] [id number] [address] Encounter Diagnosis Callus(Discharge Diagnosis) - 07/15/23 Tinea unguium(Discharge Diagnosis) - 07/15/23 Diabetes(Discharge Diagnosis) - 07/15/23 Diabetic neuropathy(Discharge Diagnosis) - 07/15/23 Discharge Disposition: Home or Self Care Attending Physician: CHONG Ayala Christina L Allergies, Adverse Reactions, Alerts No Known Medication Allergies Substance Reaction Severity Status red dye Anaphylaxis Severe Active Assessment and Plan Extracted from: Title:Follow Up Visit Author:CHONG Ayala, Jim Barker Date:07/15/23 1.Callus Area debrided with #15 blade to tolerance, no bleeding or cellulitis noted verbal consent obtained for debridement Recommend moisturizing lotion to feet daily Recommend offloading pads over the area for pressure relief 2.Tinea unguium -Patient unable to provide self care to toenails due todiabetes - verbal consent obtained for debridement -Recommend toenail debridement -Patient had toenails of bilateral digits 1-5 debrided using nail nippers to tolerance, no bleeding noted -Patient instructed to use emery board to nails once per week -Patient had no ingrown toenails or infection noted -Patient is to follow up in 2-3 months for treatment if needed in the future 3.Diabetes 4.Diabetic neuropathy Immunizations Given and Recorded Vaccine Date Status [...] q12h, Disp# 56 tab, Refills: 1, Pharmacy: [facility] [id number] Start Date: 07/03/23 Stop Date: 08/28/23 Status: Ordered diclofenac 1% topical gel APPLY 2 GRAMS TOPICALLY TO SINGLE ELBOW, WRIST OR HAND (HAND INCLUDES PALM/FINGERS/BACK OF HAND) 4 TIMES DAILY Start Date: 03/30/23 Status: Ordered Flagyl 500 mg oral tablet Start: 07/03/23 13:38:00 EDT, 1 tab, PO, q8h, Disp# 84 tab, Refills: 1, Pharmacy: [facility] Start Date: 07/03/23 Stop Date: 08/28/23 Status: Ordered hepatitis B adult vaccine 20 mcg/mL Start: 05/04/23 11:23:00 EDT, 1 mL, IM, ONCE, Disp# 1 mL, given to patient Start Date: 05/04/23 Status: Ordered levothyroxine 200 mcg (0.2 mg) oral tablet Start: 03/06/23 14:50:00 EDT, 1 tab, PO, Daily, Disp# 30 tab, Refills: 4, Pharmacy: [facility] Start Date: 03/06/23 Stop Date: 08/03/23 Status: Ordered levothyroxine 25 mcg (0.025 mg) oral tablet Start: 04/20/23 13:38:00 EDT, 1 tab, PO, Daily, Disp# 30 tab, Refills: 2, Note to Pharmacy: patientto take 225 mg of levothyroxine., Pharmacy: [facility] 2229 Start Date: 04/20/23 Stop Date: 07/19/23 Status: Ordered metFORMIN 500 mg oral tablet Start: 04/20/23 13:09:00 EDT, 1 tab, PO, bid, Disp# 180 tab, Refills: 2, Pharmacy: [facility] Start Date: 04/20/23 Stop Date: 01/15/24 Status: Ordered nystatin 100,000 units/g topical powder Start: 06/03/23 10:48:00 EDT, See Instructions, Disp# 15 g, Refills: 1, Apply topically to affectedabdominal area 2-3 times daily, Pharmacy: [facility] 2229 Start Date: 06/03/23 Status: Ordered potassium chloride 20 mEq oral powder for reconstitution Start: 04/20/23 13:11:00 EDT, 1 each, PO, ONCE, Disp# 90 cap, Refills: 2, Pharmacy: [facility] 2229 Start Date: 04/20/23 Status: Ordered pravastatin 40 mg oral tablet Start: 04/20/23 13:10:00 EDT, 1 tab, PO, Daily, Disp# 90 tab, Refills: 1, Pharmacy: [facility] 2229 Start Date: 04/20/23 Stop Date: 10/17/23 Status: Ordered torsemide 10 mg oral tablet Start: 04/20/23 13:10:00 EDT, 1 tab, PO, Daily, Disp# 90 tab, Refills: 2, Pharmacy: [facility] 2229 Start Date: 04/20/23 Stop Date: 01/15/24 Status: Ordered Vitamin B12 Start: 07/10/22 15:10:00 EDT Start Date: 07/10/22 Status: Ordered Vitamin D3 1000 intl units (25 mcg) oral tablet Start: 10/13/22 10:07:00 EST, 1 tab, PO, bid Start Date: 10/13/22 Status: Ordered Mental Status 07/15/23 Barriers to Learning one year None evide nt Mandatory Health Literacy Documentation Yes Health Literacy Communication Barriers N ever Primary Language Romanian Problem List Condition Confirmation Course Effective Dates [...] Effective Dates Health Status Clinical Service Informant Tinea unguium Discharge Diagnosis 07/15/23 Diabetes Discharge Diagnosis 07/15/23 Callus Discharge Diagnosis 07/15/23 Diabetic neuropathy Discharge Diagnosis 07/15/23 Procedures Procedure Date Related Diagnosis Body Site [...] CMP 10/2020 gluc 113 H, CMP 01/2022 [id number] H, Hgb a1c 6.2 H, 9bilateral knees Social History Social History Type Response Smoking Status Never smoked cigaret fadi Sex Ortho Outpt Note * CHONG Ayala, Sola Barker: PERFORM Event Display: Ortho Outpt Note Authored Date: [id number] Chief Complaint elder carroll Primary Care Provider MD Amy, Tanisha Nolan Patient is a very pleasant 78-year-old female presenting today for care, patient is a low risk diabetic last seen March 12, 2023. Patient is doing well with respect to her feet wearing diabetic shoes no acute concerns. Review of Systems Diabetes and hypothyroidism Objective Physical Exam Problem focused bilateral feet: Dorsalis pedis pulse palpable 1 out of 4, posterior tibial pulsenonpalpable secondary to significant swelling of the ankles bilaterallyvaricosities are noted pedal hair is absent capillary refilltime less than 3 seconds skin turgor good to all digits of both feet. Neurovascular status grossly intact to all digits of both feet, monofilament test noted to be diminished to distal extremities, light touch diminished to distal extremities,proprioception diminished to distal extremities. Skin is clean dry and intact. Interspaces intact without maceration or breakdown. History of rheumatoid arthritis right foot with severe hallux valgus deformitysevere hammertoe deformity ofright second toe overlapping hallux secondary to arthritis and bunion deformity with hammertoerigid deformity. Patient is not a surgical candidatecontinue diabetic shoes Callus formation presentmedial aspect right hallux recommend debridement, Toenails of digits 1 through 5 bilateral feet with elongation, subungual debris, thickening greaterthan 1 mm dystrophy and pain recommend debridement Assessment/Plan 1.Callus Area debrided with #15 blade to tolerance, no bleeding or cellulitis noted verbal consent obtained for debridement Recommend moisturizing lotion to feet daily Recommend offloading pads over the area for pressure relief 2.Tinea unguium -Patient unable to provide self care to toenails due todiabetes - verbal consent obtained for debridement -Recommend toenail debridement -Patient had toenails of bilateral digits 1-5 debrided using nail nippers to tolerance, no bleedingnoted -Patient instructed to use emery board to nails once per week -Patient had no ingrown toenails or infection noted -Patient is to follow up in 2-3 months for treatment if needed in the future 3.Diabetes 4.Diabetic neuropathy Electronic Signature on File Electronically Reviewed/Signed by: Sola Ayala DPM Author Signature Dt/Tm:07/15/2023 02:37 PM Division of Sports Medicine CLR Patient Care team information Care Team Personnel Name: MD Reyes Margaret Position: Resident Member Role: Primary Care Provider Address: Address: [facility] [address] [place] [address] Care Team Related Persons Name: NOHELIA HOLLINS Address: [place] Address: home [address] [place], [place] [id number]
--- OUTSIDE RECORDS SUMMARY | 2023-12-07 10:13 | External Medical Summary | Continuity of Care Document ---
Author Name Unknown Organization [facility] [address] [place] [address] KINDRA BARNHART [phone] Care Team Providers Care Hospitality Team Member Name Role Phone Sola Ayala Primary Care Physician [phone] [id number] Date(s): 08/28/23 - 08/28/23 [facility] [address] [facility] [address], [address] K[place]A [place] [address] [phone] Discharge Disposition: Home or Self Care Attending [...] q12h, Disp# 56 tab, Refills: 1, Pharmacy: [facility] [id number] Start Date: 07/03/23 Stop Date: 08/28/23 Status: Ordered diclofenac 1% topical gel APPLY 2 GRAMS TOPICALLY TO SINGLE ELBOW, WRIST OR HAND (HAND INCLUDES PALM/FINGERS/BACK OF HAND) 4 TIMES DAILY Start Date: 03/30/23 Status: Ordered Flagyl 500 mg oral tablet Start: 07/03/23 13:38:00 EDT, 1 tab, PO, q8h, Disp# 84 tab, Refills: 1, Pharmacy: [facility] 2229 Start Date: 07/03/23 Stop Date: 08/28/23 Status: Ordered hepatitis B adult vaccine 20 mcg/mL Start: 05/04/23 11:23:00 EDT, 1 mL, IM, ONCE, Disp# 1 mL, given to patient Start Date: 05/04/23 Status: Ordered levothyroxine 200 mcg (0.2 mg) oral tablet Start: 08/14/23 13:45:00 EDT, 1 tab, PO, Daily, Disp# 30 tab, Refills: 4, Pharmacy: [facility] 2229 Start Date: 08/14/23 Stop Date: 01/11/24 Status: Ordered levothyroxine 25 mcg (0.025 mg) oral tablet Start: 07/22/23 17:44:00 EDT, 1 tab, PO, Daily, Disp# 30 tab, Refills: 2, Note to Pharmacy: patientto take 225 mg of levothyroxine., Pharmacy: [facility] 2229 Start Date: 07/22/23 Stop Date: 10/20/23 Status: Ordered metFORMIN 500 mg oral tablet Start: 04/20/23 13:09:00 EDT, 1 tab, PO, bid, Disp# 180 tab, Refills: 2, Pharmacy: [facility]30 Start Date: 04/20/23 Stop Date: 01/15/24 Status: Ordered nystatin 100,000 units/g topical powder Start: 06/03/23 10:48:00 EDT, See Instructions, Disp# 15 g, Refills: 1, Apply topically to affectedabdominal area 2-3 times daily, Pharmacy: [facility] 2229 Start Date: 06/03/23 Status: Ordered potassium chloride 20 mEq oral powder for reconstitution Start: 08/24/23 11:18:00 EDT, 1 each, PO, ONCE, Disp# 30 tab, Refills: 4, Pharmacy: [facility] Start Date: 08/24/23 Stop Date: 12/07/23 Status: Ordered pravastatin 40 mg oral tablet Start: 04/20/23 13:10:00 EDT, 1 tab, PO, Daily, Disp# 90 tab, Refills: 1, Pharmacy: [facility] Start Date: 04/20/23 Stop Date: 10/17/23 Status: Ordered torsemide 10 mg oral tablet Start: 04/20/23 13:10:00 EDT, 1 tab, PO, Daily, Disp# 90 tab, Refills: 2, Pharmacy: [facility] Start Date: 04/20/23 Stop Date: [...] CMP 10/2020 gluc 113 H, CMP 01/2022 [id number] H, Hgb a1c 6.2 H, 9bilateral knees Social History Social History Type Response Smoking Status Never smoked cigaret fadi Sex Patient Care team information Care Team Personnel Name: CHONG Ayala, Sola Barker Position: Physician - Podiatry Member Role: Primary Care Provider Address: Address: [address] [facility] [address] [place] [address] [place] Care Team Related Persons Name: NOHELIA HOLLINS Address: [place] Address: home [address] [place], [place] [id number]
[2023-12-07 10:17] LABS: Basophils # (auto) 0.04 K/uL (0.00-0.20); Basophils % (auto) 0.5 %; Eosinophils # (auto) 0.04 K/uL (0.00-0.50); Eosinophils % (auto) 0.5 %; Hematocrit (blood only) 38.6 % (37.0-47.0); Hemoglobin 12.5 g/dl (12.0-16.0); Immature Granulocytes # (auto) 0.03 K/uL (0.01-0.20); Immature Granulocytes % (auto) 0.4 %; Lymphocytes # (auto) 0.92 K/uL (1.20-3.40); Lymphocytes % (auto) 11.3 %; Mean Corpuscular Hemoglobin 28.7 pg (25.0-34.0); Mean Corpuscular Hgb Conc 32.4 g/dL (32.0-36.0); Mean Corpuscular Volume 88.7 fL (80.0-100.0); Mean Platelet Volume 10.6 fL (9.4-12.4); Monocytes # (auto) 0.75 K/uL (0.11-0.59); Monocytes % (auto) 9.2 %; Neutrophils # (auto) 6.33 K/uL (1.40-6.50); Neutrophils % (auto) 78.1 %; Platelet Count 198 K/uL (130-400); RDW Coefficient of Variation 14.6 % (11.5-14.5); RDW Standard Deviation 47.4 fL (36.4-46.3); Red Blood Count 4.35 M/uL (4.20-5.40); White Blood Count 8.11 K/ul (4.8-10.8)
[2023-12-07 10:35] LABS: Albumin Level 3.8 gm/dl (3.4-5.0); BUN Creatinine Ratio 23.5 (10-20); Bilirubin Direct 0.1 mg/dl (0-0.2); Bilirubin,Total 0.6 mg/dl (0.2-1.0); Calcium 8.9 mg/dl (8.6-10.3); Creatinine Clr Calc Pharmacy 98.2 ml/min; Est GFR (African American) 81.8 ml/min; Est GFR (Non-African American) 70.5 ml/min; Magnesium 1.7 mg/dl (1.7-2.4); Potassium 4.5 mmol/L (3.5-5.1); Total Protein 7.2 gm/dl (6.0-8.3)
[2023-12-07 10:39] LABS: Troponin I High Sensitivity 21.3 pg/ml (0-14)
[2023-12-07] MEDS ORDERED: FUROSEMIDE INJ 20 MG/2 ML VIAL IV ONE (11:06)
[2023-12-07 11:19] LABS: Influenza A virus by PCR Negative (Neg); Influenza B virus by PCR Negative (Neg); RSV by PCR Negative (Neg); SARS CoV2 RNA(COVID-19) Ceph NEGATIVE (Negative)
[2023-12-07 11:54] LABS: Appearance Urine Clear (Clear); Bilirubin Urine Negative (Negative); Blood Urine Negative (Negative); Color Urine Yellow; Glucose Urine UA Negative (Negative); Ketones Urine Negative (Negative); Leukocyte Esterase Urine Negative (Negative); Nitrite Urine Negative (Negative); Protein Urine Negative (Negative); Specific Gravity Urine 1.019 (1.000-1.030); Urobilinogen Urine Negative (Negative)
--- NOTE | 2023-12-07 12:07 | History & Physical Report ---
Date of Service December 07, 2023 Assessment & Plan (1) RIOS (dyspnea on exertion): Plan: -Admit to med/micki -Currently hemodynamically stable, stable on RA, and asymptomatic at rest -Patient presented to the ED for progressive SOB/RIOS over the past 2-3 months -Volume status evaluation is difficult due to body habitus but she is significantly swollen in the BL LE's right > left -No formal diagnosis of CHF but patient does have PRN PO torsemide to use for foot swelling, has been using daily for the past week -Per review of her previous imaging, the patient has a hx of cirrhosis -LFT's are WNL and clinically is without signs of decompensated cirrhosis -S/P 20 mg IV lasix in the ED, will continue 20 mg IV lasix BID for now with recent orthostatic symptoms at home -Will speak with the residents to obtain recent notes as the patient states she has had some discussion regarding her liver in the recent past -Monitor intake/output and daily weights -SQ lovenox for DVT PPX -HH/DMII diet with 2gm sodium and 1800 mL fluid restrictions -AM CBC, CMP, mag, PT/INR (2) Bilateral lower extremity edema: Plan: -Patient with significant swelling in the BL LE's with right > left -Patient states that her right LE is always more swollen than the left -Unsure of the exact etiology at this time but the differential favors CHF or her known cirrhosis -Will obtain venous doppler of the RLE as she has a hx of previous DVT/PE -Continue IV diuresis (3) Hypothyroidism: Plan: -Continue levothyroxine (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: Plan: -Ileostomy is functioning at baseline per patient -Does have signs of fungal infection on the skin under the ostomy bag -Will order nystatin for fungal infection -Daily ostomy care (5) Lightheadedness: Plan: -Likely due to orthostasis as symptoms occur while standing and are relieved at rest -Will need to monitor closely while on IV diuresis -Fall precautions -Monitor orthostatic vitals prior to DC (6) Elevated troponin: Plan: -Initial high sen trop elevated at 21 with 2 hour repeat down to 20 -Patient denies chest pain, no acute ST segment or T-wave changes on ECG -Likely due to demand from volume overload -Conitnue to monitor on tele (7) Cirrhosis: Plan: -Per review of previous [facility] notes the patient is followed outpatient by Dr. Bonilla but has not had a formal outpatient evaluation -LFT's are WNL -No signs of decompensated cirrhosis -Will obtain US of the abd for enough ascites to possibly obtain a diagnostic tap -If she has enough ascites will consider diagnostic paracentesis while admitted -Monitor daily CMP and INR, will obtain INR on admission (8) Diabetes mellitus, type 2: Plan: -Hold metformin -Monitor BSG ACHS, goal is 110-140 -Will start light coverage with CF of 50 ACHS -HH/DMII diet, 2gm sodium restriction and 1800 mL fluid restriction -Adjust regimen as needed -AM A1c and lipid panel (9) Abdominal fistula: Plan: -Follows with [facility], Dr. Bonilla -Currently on Flagyl and Ciprofloxacin -Patient reports continued improvement while on abx -Visible fistula today appears to be healing well, without drainage -Continue to follow with Colorectal Surgery outpatient -Continue flagyl and cirpo Plan The patient was discussed with Dr. Conti at the time of the admission History of Present Illness Chief Complaint: RIOS, LE swelling, dizziness Primary Care Provider: Tanisha Reyes MD Symone is a 78 year old female with a PMH significant for DMII, Chron's disease S/P total proctocolectomy with current colostomy status, CESAR, GERD, and hyperlipidemia who presented to the [facility] via EMS on 12/07 with complaints of progressive RIOS/SOB, LE swelling, and dizziness. She was noted to be stable in the ED. Labs were significant for a BNP of 658 (no previous to compare to), initial high sen trop of 21, and covid 19/RSV/Influenza negative. Chest xray was read as negative for acute findings, but on review appears consistent with CHF with Cardiomegaly and increased pulmonary vascular congestion. Prior to admission the patient was given 20 mg IV lasix. At the time of the exam the patient was lying in bed in no acute distress with her Daughter sitting bedside. The patient states that she has been experiencing progressive weight gain, swelling, generalized weakness, and lig htheadedness/dizziness with standing over the past 1-2 months. She states that she woke this am and walked to the bathroom, she experienced significant SOB/RIOS while walking. She denies the room spinning and states that she feels too weak to be at home alone at this time. She called EMS this am as her symptoms continue to progress. She and her daughter explain that the patient has been on oral Flagyl and Ciprofloxacin for months for her ongoing issue with fistulas near her ostomy site. She follows with Dr. Forman of [facility]. They report that he wants her to be evaluated by [facility] for possible surgical repair of the fistulas. They report that her fistulas have been improving since being on antibiotics. She denies recent fever, chills, chest pain, cough, abd pain, nausea, vomiting, changes in ostomy output, dysuria, and recent trauma. She is a full code and would want her daughter to make medical decisions for her if she cannot make decisions herself. Please refer to Dr. Conti's attestation for any changes to DVT PPX Allergies Allergy/AdvReac Type Severity Reaction Status Date / Time red dye Allergy Severe Anaphylaxis Verified 03/10/23 13:54 Home Medications Medication Instructions Recorded Confirmed Type Bifidobacterium infantis 4 mg 4 mg PO QAM 09/18/22 12/07/23 History capsule (Align) calcium carbonate 600 mg calcium 600 mg PO BID 09/18/22 12/07/23 History (1,500 mg) tablet (Calcium) famotidine 20 mg tablet (Pepcid) 20 mg PO DAILY PRN Acid Reflux 09/18/22 12/07/23 History metformin 500 mg tablet 500 mg PO BID 09/18/22 12/07/23 History potassium chloride 20 mEq 20 meq PO DAILY PRN takes when 09/18/22 12/07/23 History tablet,extended release taking torsemide pravastatin 40 mg tablet 40 mg PO HS 09/18/22 12/07/23 History torsemide 10 mg tablet 10 mg PO DAILY PRN edema in feet 09/18/22 12/07/23 History levothyroxine 200 mcg tablet 200 mcg PO QAM 12/03/22 12/07/23 History diclofenac sodium 1 % topical gel 2 g topical QID #200 grams 01/26/23 12/07/23 Rx (Voltaren Arthritis Pain) cholecalciferol (vitamin D3) 50 50 mcg PO QAM 02/27/23 12/07/23 History mcg (2,000 unit) capsule (Vitamin D3) cyanocobalamin (vitamin B-12) 1,000 mcg PO QAM 02/27/23 12/07/23 History 1,000 mcg tablet (Vitamin B-12) levothyroxine 25 mcg tablet 25 mcg PO QAM 12/07/23 12/07/23 History Past Med/Surg History Medical History (Updated 12/07/23 @ 13:04 by Jadiel Pineda PA-C) Morbid obesity with BMI of 50.0-59.9, adult Osteoarthritis Ileostomy in place Ulcerative colitis Hypothyroidism Diabetes mellitus, type 2 on metformin daily History of pulmonary embolism "at least 10yrs ago"--unknown cause, was on blood thinners, but then taken off--per pt no issues currently Heart murmur follows with PCP--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 Surgical History History of benign breast biopsy History of total left knee replacement (TKR) History of total right knee replacement (TKR) History of gastric bypass History of hernia surgery History of cholecystectomy History of appendectomy History of colonoscopy and ileoscopy History of esophagogastroduodenoscopy (EGD) History of colon resection performed about 20yrs ago d/t ulcerative colitis---has ileostomy History of tooth extraction History of wisdom tooth extraction History of thyroidectomy, total d/t nodules History of bilateral cataract extraction Family History Sister Family history of reaction to anesthesia nausea/vomiting Social History Smoking Status: Never smoker Second Hand Exposure: No; Do You Dip or Chew Tobacco: No; Hx Alcohol Use: Yes Alcohol type: wine Hx Substance Use: No Preferred Language: Mongolian Communication Ability: Effective 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: No Beliefs That Will Affect Care: None Current Living Situation: Alone Feels Safe at Home: Yes Assistive Devices: Glasses and Walker Physical Exam Physical Exam: Physical Exam: General: In no acute distress, stated age, morbidly obese, chronically ill appearing but non-toxic appearing HEENT: Normocephalic, atraumatic, no scleral icterus, pupils around round, symmetrical, and reactive to light, moist mucus membranes, trachea midline, no thyromegaly Chest/Pulm: No respiratory distress, symmetrical chest expansion, decreased breath sounds in the BL lower lung shultz but otherwise clear to auscultation Cardiac: RRR, no murmurs noted Abdomen: Large abdomen, difficult to evaluate due to body habitus, ostomy located in the LLQ is intact without signs of infection, known fistula located to the right of the ostomy bag which is currently closed and not draining; patient states that other fistula is located under the ostomy bag Musculoskeletal: Symmetrical and without signs of acute trauma, upper and lower extremities with full ROM, no atrophy, spasticity, or flaccidity Extremities: Radial, dorsalis pedis, and posterior tibial pulses are intact and symmetrical, significant edema in the BL LE's with right > left which is her baseline Skin: Patient with erythema under the ostomy bag consistent with fungal infection Neuro: Alert and oriented to person, place, month, year, and president, no focal defects, no tremors noted Psych: No acute distress, calm and cooperative during the exam Results & Data Results & Data Vital Signs (Past 12 Hours) Vital Signs Temp Pulse Pulse Resp BP BP Pulse Ox 12/07/23 11:36 89 20 114/86 94 12/07/23 09:31 94 H 12/07/23 08:56 36.7 C 101 H 19 132/104 H 93 O2 Del Method 12/07/23 11:36 Room Air 12/07/23 09:31 12/07/23 08:56 Room Air Laboratory Results Abnormal lab results 12/07/23 12/07/23 Range/Units 09:54 11:49 RDW Std Deviation 47.4 H (36.4-46.3) fL RDW Coeff of Laurie 14.6 H (11.5-14.5) % Lymph # (Auto) 0.92 L (1.20-3.40) K/uL Graham # (Auto) 0.75 H (0.11-0.59) K/uL BUN/Creatinine Ratio 23.5 H (10-20) Glucose 153 H (70-99(Fasting)) mg/dl AST 11 L (13-39) U/L Troponin I High Sens 21.3 H 20.7 H (0-14) pg/ml B-Natriuretic Peptide 658 H (0-100) pg/ml Diagnostic Findings Chest X-Ray 12/07/23 09:14 XR chest 1V portable CLINICAL HISTORY: Sepsis TECHNIQUE: Single frontal radiograph of the chest was obtained. Comparison: None available at the time of this dictation. FINDINGS: No lines and tubes are seen. Cardiomegaly is noted. The aortic arch is calcified. The lungs are clear. No evidence of pleural effusion or pneumothorax. IMPRESSION: No acute abnormalities and in particular no radiographic evidence of pneumonia. ACT 112: Negative or not required by law. Electronically signed by: Jj Botello M.D. 12/07/2023 9:52 AM ECG Additional Comments: Sinus rhythm with Premature supraventricular complexes Nonspecific T wave abnormality Abnormal ECG No previous ECGs available Confirmed by Michael Bowden ([id number]) on 12/07/2023 9:55:55 AM Code Status & VTE Plan Code Status Full code VTE Prophylaxis Plan VTE Prophylaxis will be ordered: Yes Supervising Physician Co-Signing Physician Notes Patient seen and examined, chart reviewed, case discussed with Jadiel Pienda PA-C and I agree with the assessment and plan as above except as otherwise noted Labs and images reviewed Ashley Padilla is a 78-year-old female with a past medical history protocolectomy and ostomy 2/2 Crohn's disease, GERD, hyperlipidemia, DM 2 who presented to the ER with worsening shortness of breath, lower extremity swelling, and dizziness/presyncope. Chest x-ray suspicious for CHF, BNP is elevated, high-sensitivity troponin mildly elevated suspicious for demand. Creatinine is normal at baseline and admitting creatinine is 0.81, no VENESSA is present. PCT is negative and viral quad screen is negative. Patient is recommended for admission for new symptomatic CHF. SpO2 96% on room air. Patient seen at the bedside, reports progressiv shortness of breath, weight gain, and dyspnea. She reports her legs were very swollen for many weeks feels this is suddenly much worse in the last 4 weeks in general. She has become to become short of breath on exertion, feels more comfortable sitting up at a slight angle? Orthopnea . does feel slightly lightheaded when standing. Improves with rest. has a hx of fistulas which are actually doin well. Ostomy feels well. On chronic flagyl/cipro due to chronic fistulas. She takes 10mg PO torsemide PRN for swelling at baseline, no prior history of heart failure. Does not watch salt/fluid intake. R>L RLE Swelling, Acute DVT: ?CHF picture and elevated BNP due to PE, LE DVT is positive. CTA pending. heparin as noted. Acute volume overload: Patient reports distant echo, no prior history of CHF although does take torsemide as needed. Repeat echo pending. Diuresis as noted. Additionally cirrhosis evaluation as noted, no prior history of ascites/decompensation. She is grossly fluid overloaded on admission with dependent edema. Endroses chronic R>L swelling, but with marked asymmetry. Doppl ers positive for DVT --> hep gtt. +hx Cirrhosis Diagnosed 2021. Last CT 05/22 with nodular lesion consistent with cirrhosis, ultrasound 04/21 consistent with cirrhosis and no lesions noted LFT stable. No coags available for review, INR is pending. No abdominal pain. No history of IVDU. Hepatitis panel negative for hep C, hep B surface antibody and antigen negative. CCP IgG normal/negative. Does drink wine. No history of ascites/cirrhotic decompensation. She reports she is not sure what progress has been done for this, reports fatty liver was mentioned to her once as an outpatient but does not know about the details and to her knowledge does not have any problems with her liver. Does have a history of DM2 on metformin, A1c is pending, admitting BSG 153. Lipid panel pending. No prior history of portal hypertension. Will reconcile with [facility] records to see if patient has had workup already performed, if not we will perform an ultrasound to look for ascites and if present follow-u p with initial diagnostic para. Crohn's, hx protocolectomy: Stable, ostomy doing well, intertrigo underlying bag --> nystatin powder odrered. Last EGD 03/10/2023: Normal esophagus, gastric bypass found, gastric pouch with large size found, GJ anastomosis characterized with healthy mucosa, jejunum normal. Stable. No acute change in management. DM2: Switch to sliding scale, goal BSG [id number]. Metformin held. Hypothyroidism: Stable PG Care Time/CCT Total # of Minutes Spent Total Time Spent with Patient: Total time spent is greater than 50% in coordination of care (as documented) at patient's floor/unit and/or counseling patient: Coding [place] [address] INT INP/OBS CARE 3/75MIN Patient Type Established Medical Decision Making High Complexity Diagnoses RIOS (dyspnea on exertion) R06.09 Bilateral lower extremity edema R60.0 Hypothyroidism E03.[address] Z93.2 Lightheadedness R42 Elevated troponin R79.89 Cirrhosis K74.60 Diabetes mellitus, type 2 E11.9 Abdominal fistula K63.2
[2023-12-07] MEDS ORDERED: GLUCOSE 40% GEL 15 GM TUBE PO PRN (12:43)
[2023-12-07] MEDS ORDERED: CARBOHYDRATES FOR HYPOGLYCEMIA PO PRN (12:43)
[2023-12-07] MEDS ORDERED: DEXTROSE 50% 50 ML SYRINGE IV PRN (12:43)
[2023-12-07] MEDS ORDERED: GLUCOSE 10 TAB/TUBE PO PRN (12:43)
[2023-12-07] MEDS ORDERED: GLUCAGON FOR INJ 1 MG VIAL SQ PRN (12:43)
[2023-12-07 13:40] LABS: Prothrombin Time 10.9 Seconds (9.0-12.0)
--- NOTE | 2023-12-07 14:30 | Ultrasound Report ---
ULTRASOUND ASCITES CHECK CLINICAL HISTORY: Cirrhosis. Abdominal swelling. COMPARISON STUDY: Abdominal CT dated 05/06/2023. FINDINGS: Real-time grayscale sonography of all 4 quadrants of the abdomen is performed to assess for abdominal ascites. No abdominal ascites is identified. IMPRESSION: No abdominal ascites is identified at the time of examination. Electronically signed by: Aramis Arceo M.D. 12/07/2023 2:29 PM
--- NOTE | 2023-12-07 14:50 | Ultrasound Report ---
RIGHT LOWER EXTREMITY VENOUS DOPPLER HISTORY: right > left external swelling, hx of DVT/PE COMPARISON STUDY: None. FINDINGS: The right common femoral and superficial femoral veins are patent. There is occlusive throm bus identified within the right popliteal vein and lesser saphenous vein. The right calf vessels were n't not well visualized. IMPRESSION: Occlusive thrombus within the right popliteal vein and adjacent lesser saphenous vein. ACT 112: Negative or not required by law. Electronically signed by: Caleb Simmons M.D. 12/07/2023 2:48 PM
--- NOTE | 2023-12-07 15:47 | Communication Note ---
Date of Service: December 07, 2023 Spoke to patient regarding the results of her RLE venous doppler showing Occlusive thrombus within the right popliteal vein and adjacent lesser saphenous vein. Patient confirms she had a previous PE approximately 10 yrs ago and underwent treatment with oral anticoagulant. She denies hx of major bleeding or reaction to heparin in the past. She also denies a hx of CT contrast allergy. We will start her on weight based heparin drip w/bolus and obtain CTA of the chest with PE protocol for further evaluation.
[2023-12-07] MEDS: NYSTATIN CR 15 GM TUBE EXT SCH ×2 (15:49→21:30)
[2023-12-07] MEDS: INSULIN ASPART PER UNIT CHARGE SC SCH ×2 (15:50→21:18)
[2023-12-07] MEDS ORDERED: OPTIRAY 320 125ml IV ONE (16:26)
[2023-12-07] MEDS ORDERED: HEPARIN SOD (PORCINE) 1000 UNIT/ML IV ONE (16:30)
--- NOTE | 2023-12-07 16:55 | CT Scan Report ---
CT ANGIOGRAM OF THE CHEST CLINICAL HISTORY: Sepsis. Dyspnea. COMPARISON STUDY: Chest x-ray dated 12/07/2023. TECHNIQUE: Following the IV administration of 118 cc of Optiray 320, CT angiogram of the chest was pe rformed from the upper abdomen to the thoracic inlet utilizing the pulmonary embolus protocol. Images are reviewed in the axial, sagittal, and coronal planes. 3-D MIPS images are created and assessed. I V contrast was administered without complication. A dose lowering technique was utilized adhering to the principles of ALARA. The examination is degraded by large body habitus, and by streak artifact f rom the body wall abutting the CT gantry. There is also motion artifact. CT DOSE: 926.93 mGy.cm FINDINGS: Thyroid: Atrophic. Thoracic aorta: There is mild atherosclerotic calcification of the thoracic aorta, which is normal in caliber and demonstrates standard 3-vessel arch anatomy. No dissection is seen. Pulmonary vasculature: The pulmonary trunk is dilated, measuring up to 3.9 cm. This suggests pulmonar y artery hypertension. There is extensive bilateral pulmonary embolus. There is thrombus within the d istal right main pulmonary artery. This extends into the right upper, middle, and lower lobe pulmonar y arteries and the segmental and subsegmental branches. There is thrombus within the distal left main pulmonary artery. This extends into the left upper and left lower lobe pulmonary arteries in the seg mental and subsegmental branches. There is also thrombus within the lingular pulmonary artery. Heart: The heart is enlarged and without pericardial effusion. There are coronary artery calcificatio ns. Lungs and pleural spaces: Evaluation of the lung parenchyma is moderately degraded by motion artifact . No airspace consolidation or pleural effusion is identified. There is bibasilar scarring/atelectasi s. The trachea and central airways are clear. Mediastinum: There is no mediastinal lymphadenopathy. Madonna: Clear. Axillae: There is no axillary lymphadenopathy. Upper abdomen: Postoperative changes noted in the stomach. There is a moderate hiatal hernia. Nodular ity of the hepatic surface contour suggests morphologic change of cirrhosis. Skeletal structures: The skeletal structures are osteopenic. Degenerative changes and kyphoscoliosis is noted in the spine. There is a large calcified structure within the left aspect of the central spi nal canal seen at T6-T7. This extends to the T6-T7 and also minimally in the T7-T8 neural foramina. T he lesion measures 4.6 x 2.3 x 4.0 cm seen on axial image #140. This severely effaces the thecal sac at T6-T7. No lytic or blastic bony lesions are seen. Arthritic change is noted in the shoulders. IMPRESSION: 1. Extensive bilateral pulmonary embolus as above. 2. There is no airspace consolidation or pleural effusion. 3. Cardiomegaly with evidence of pulmonary artery hypertension. 4. Cirrhotic liver morphology. 5. There is a 4.6 cm calcified extra-axial lesion in the left aspect of the thoracic spinal canal at T6-T7. This severely effaces the thecal sac, and could represent iatrogenic change or possibly a calc ified extra-axial mass lesion such as a meningioma or nerve sheath tumor. Clinical correlation will b e required. This is not an acute finding and and should be correlated with any prior outside chest im aging. Nonemergent follow up with neurology is advised. 6. Additional findings as above. ACT 112: Positive. There are findings on this exam that require communication between the performing entity and the patient following Patient Test Result Information Act ([place] Act 112) guidelines. Electronically signed by: Aramis Arceo M.D. 12/07/2023 4:53 PM
[2023-12-07] MEDS: HEPARIN SODIUM/DEXTROSE 25,000 UNITS/500 ML BAG IV SCH (16:57)
[2023-12-07] MEDS ORDERED: FAMOTIDINE 20 MG TAB PO PRN (17:06)
[2023-12-07] MEDS ORDERED: FUROSEMIDE INJ 20 MG/2 ML VIAL IV SCH (17:06)
[2023-12-07] MEDS: Heparin IV Adult Wt-Based Standard w/ INITIAL Bolus Protocol IV SCH ×3 (17:47→18:25)
[2023-12-08 00:14] LABS: ANTI-Xa, UFH(UnfractionatedHep 0.89 IU/ml (0.3-0.7)
[2023-12-08] MEDS: ACETAMINOPHEN 325 MG TAB PO PRN (04:15)
[2023-12-08] MEDS: LEVOTHYROXINE SODIUM 75 MCG TABLET PO SCH (05:53)
[2023-12-08 07:14] LABS: Albumin Globulin Ratio 1.1 (0.9-2); Albumin Level 3.4 gm/dl (3.4-5.0); BUN Creatinine Ratio 23.5 (10-20); Bilirubin,Total 0.7 mg/dl (0.2-1.0); Calcium 8.2 mg/dl (8.6-10.3); Chol HDL Ratio 2.9 (0-5); Creatinine Clr Calc Pharmacy 98.2 ml/min; Est GFR (African American) 81.8 ml/min; Est GFR (Non-African American) 70.5 ml/min; Globulin 3.1 gm/dl (2.5-4.0); Magnesium 1.6 mg/dl (1.7-2.4); Potassium 3.9 mmol/L (3.5-5.1); Total Protein 6.5 gm/dl (6.0-8.3)
[2023-12-08 07:20] LABS: Basophils # (auto) 0.04 K/uL (0.00-0.20); Basophils % (auto) 0.6 %; Eosinophils # (auto) 0.15 K/uL (0.00-0.50); Eosinophils % (auto) 2.2 %; Immature Granulocytes # (auto) 0.02 K/uL (0.01-0.20); Immature Granulocytes % (auto) 0.3 %; Lymphocytes # (auto) 1.32 K/uL (1.20-3.40); Lymphocytes % (auto) 19.1 %; Mean Corpuscular Hemoglobin 29.1 pg (25.0-34.0); Mean Corpuscular Hgb Conc 33.3 g/dL (32.0-36.0); Mean Corpuscular Volume 87.2 fL (80.0-100.0); Mean Platelet Volume 10.9 fL (9.4-12.4); Monocytes # (auto) 0.73 K/uL (0.11-0.59); Monocytes % (auto) 10.5 %; Neutrophils # (auto) 4.66 K/uL (1.40-6.50); Neutrophils % (auto) 67.3 %; Platelet Count 213 K/uL (130-400); RDW Coefficient of Variation 14.4 % (11.5-14.5); RDW Standard Deviation 45.6 fL (36.4-46.3); Red Blood Count 4.13 M/uL (4.20-5.40); White Blood Count 6.92 K/ul (4.8-10.8)
[2023-12-08] MEDS: HEPARIN SODIUM/DEXTROSE 25,000 UNITS/500 ML BAG IV SCH ×2 (07:33→22:10)
[2023-12-08 07:34] LABS: Estimated Average Glucose 140 mg/dl; Hemoglobin A1C 6.5 % (4.5-5.6)
[2023-12-08 07:57] LABS: Prothrombin Time 11.4 Seconds (9.0-12.0)
--- NOTE | 2023-12-08 08:13 | Hospitalist Progress Note ---
Date of Service December 08, 2023 Assessment & Plan (1) RIOS (dyspnea on exertion): Plan: suspect heart failure, unknown type pending echo progressive SOB/RIOS over the past 2-3 months -Per review of her previous imaging, the patient has a hx of cirrhosis -LFT's are WNL and clinically is without signs of decompensated cirrhosis EF 50-55%, no rwma, therefore hf is HFrEF or acute on chronic diastolic heart failure consider advancing GBMT, starting metoprolol -S/P 20 mg IV lasix in the ED, will continue 20 mg IV lasix BID for now with recent orthostatic symptoms at home (2) Bilateral lower extremity edema: Plan: -Patient with significant swelling in the BL LE's with right > left -Patient states that her right LE is always more swollen than the left -Doppler shows occlusive thrombus of the RLE and she has a hx of previous DVT/PE iv heparin transition to DOAC (3) Hypothyroidism: Plan: -Continue levothyroxine (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: Plan: -Ileostomy is functioning at baseline per patient -Does have signs of fungal infection on the skin under the ostomy bag -Will order nystatin for fungal infection -Daily ostomy care (5) Lightheadedness: Plan: -Likely due to orthostasis as symptoms occur while standing and are relieved at rest -Will need to monitor closely while on IV diuresis -Fall precautions -Monitor orthostatic vitals prior to DC (6) Elevated troponin: Plan: -Initial high sen trop elevated at 21 with 2 hour repeat down to 20 -Patient denies chest pain, no acute ST segment or T-wave changes on ECG -Likely due to demand from volume overload (7) Cirrhosis: Plan: -Per review of previous [facility] notes the patient is followed outpatient by Dr. Bonilla but has not had a formal outpatient evaluation -LFT's are WNL -No signs of decompensated cirrhosis -Will obtain US of the abd for enough ascites to possibly obtain a diagnostic tap -If she has enough ascites will consider diagnostic paracentesis while admitted (8) Diabetes mellitus, type 2: Plan: -Hold metformin -Monitor BSG ACHS, goal is 110-140 -HH/DMII diet, 2gm sodium restriction and 1800 mL fluid restriction -Adjust regimen as needed -AM A1c and lipid panel (9) Abdominal fistula: Plan: -Follows with [facility]orectal Surgery, Dr. Bonilla -Currently on Flagyl and Ciprofloxacin -Patient reports continued improvement while on abx - Plan -therapeutic heparin for DVT Admission and Anticipated Discharge Date Admission Date: December 07, 2023 Subjective pt feels better less short of breath, she has some improvement to lower extremity swelling but still worsened right lower extremity- doppler shows occlusive thrombus Physical Exam Physical Exam: cardiac is regular with murmur lungs are diminished at the bases ext RLE with 1+ edema Results & Data Results & Data Vital Signs (Past 12 Hours) Vital Signs Temp Pulse Pulse Pulse Resp BP BP 12/08/23 07:46 98.1 F 77 16 101/69 12/08/23 07:41 12/08/23 06:20 75 12/08/23 04:00 98.2 F 94 H 18 127/78 12/07/23 23:00 85 12/07/23 22:45 98.1 F 87 18 118/68 12/07/23 22:30 12/07/23 21:30 98 H 17 120/92 Pulse Ox O2 Del Method 12/08/23 07:46 92 Room Air 12/08/23 07:41 Room Air 12/08/23 06:20 12/08/23 04:00 94 Room Air 12/07/23 23:00 12/07/23 22:45 91 Room Air 12/07/23 22:30 Room Air 12/07/23 21:30 95 Room Air Laboratory Results review cbc review chemistry PG Care Time/CCT Total # of Minutes Spent Total Time Spent with Patient: Total time spent is greater than 50% in coordination of care (as documented) at patient's floor/unit and/or counseling patient: Coding Level of Care Code 79012 SUB INP/OBS CARE 3/50MIN Diagnoses RIOS (dyspnea on exertion) R06.09 Bilateral lower extremity edema R60.0 Hypothyroidism E03.[address] Z93.2 Lightheadedness R42 Elevated troponin R79.89 Cirrhosis K74.60 Diabetes mellitus, type 2 E11.9 Abdominal fistula K63.2
[2023-12-08] MEDS: MAGNESIUM SULFATE / D5W 1 GM/100 ML BAG IV SCH ×2 (08:47→10:38)
[2023-12-08] MEDS: NYSTATIN CR 15 GM TUBE EXT SCH ×3 (09:02→21:27)
[2023-12-08] MEDS: INSULIN ASPART PER UNIT CHARGE SC SCH ×4 (09:05→21:29)
[2023-12-08 09:46] LABS: ANTI-Xa, UFH(UnfractionatedHep 0.55 IU/ml (0.3-0.7)
--- NOTE | 2023-12-08 13:49 | XCELERA ---
[id number]
[2023-12-08 16:08] LABS: ANTI-Xa, UFH(UnfractionatedHep 0.58 IU/ml (0.3-0.7)
--- NOTE | 2023-12-08 18:15 | Hospitalist Progress Note ---
Date of Service December 08, 2023 Assessment & Plan (1) RIOS (dyspnea on exertion): Plan: ACUTE SHORTNESS OF BREATH FROM Bilateral PE due to right popliteal DVT +/- right saphenous vein SVT progressive SOB/RIOS over the past 2-3 months maybe HfPef, EF 50-55%, no rwma, therefore hf is HFrEF or acute on chronic diastolic heart failure consider advancing GBMT, starting metoprolol -S/P 20 mg IV lasix in the ED, will continue 20 mg IV lasix BID for now with recent orthostatic symptoms at home (2) Bilateral lower extremity edema: Plan: -Patient with significant swelling in the BL LE's with right > left -Patient states that her right LE is always more swollen than the left -Doppler shows occlusive thrombus of the RLE and she has a hx of previous DVT/PE iv heparin transition to DOAC for DVT PE (3) Hypothyroidism: Plan: -Continue levothyroxine (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: Plan: -Ileostomy is functioning at baseline per patient -Does have signs of fungal infection on the skin under the ostomy bag -Will order nystatin for fungal infection -Daily ostomy care (5) Lightheadedness: Plan: -Likely due to orthostasis as symptoms occur while standing and are relieved at rest -Will need to monitor closely while on IV diuresis -Fall precautions -Monitor orthostatic vitals prior to DC (6) Elevated troponin: Plan: -Initial high sen trop elevated at 21 with 2 hour repeat down to 20 -Patient denies chest pain, no acute ST segment or T-wave changes on ECG -Likely due to demand from volume overload (7) Cirrhosis: Plan: -Per review of previous [facility] notes the patient is followed outpatient by Dr. Bonilla but has not had a formal outpatient evaluation -LFT's are WNL -No signs of decompensated cirrhosis -Will obtain US of the abd for enough ascites to possibly obtain a diagnostic tap -If she has enough ascites will consider diagnostic paracentesis while admitted (8) Diabetes mellitus, type 2: Plan: -Hold metformin -Monitor BSG ACHS, goal is 110-140 -HH/DMII diet, 2gm sodium restriction and 1800 mL fluid restriction -Adjust regimen as needed -AM A1c and lipid panel (9) Abdominal fistula: Plan: -Follows with [facility] Colorectal Surgery, Dr. Bonilla -Currently on Flagyl and Ciprofloxacin -Patient reports continued improvement while on abx - Plan -therapeutic heparin for DVT Admission and Anticipated Discharge Date Admission Date: December 07, 2023 Results & Data Results & Data Vital Signs (Past 12 Hours) Vital Signs Temp Pulse Pulse Resp BP Pulse Ox O2 Del Method 12/08/23 16:00 97.5 F L 81 18 139/85 94 Room Air 12/08/23 13:59 85 12/08/23 07:46 98.1 F 77 16 101/69 92 Room Air 12/08/23 07:41 Room Air 12/08/23 06:20 75 PG Care Time/CCT Total # of Minutes Spent Total Time Spent with Patient: Total time spent is greater than 50% in coordination of care (as documented) at patient's floor/unit and/or counseling patient: Coding Level of Care Code None Diagnoses RIOS (dyspnea on exertion) R06.09 Bilateral lower extremity edema R60.0 Hypothyroidism E03.[address] Z93.2 Lightheadedness R42 Elevated troponin R79.89 Cirrhosis K74.60 Diabetes mellitus, type 2 E11.9 Abdominal fistula K63.2
[2023-12-08] MEDS: METOPROLOL TARTRATE 25 MG TAB PO SCH (21:27)
[2023-12-08] MEDS: MELATONIN 3 MG TAB PO PRN (23:03)
[2023-12-09] MEDS: ACETAMINOPHEN 325 MG TAB PO PRN ×2 (04:22→22:32)
[2023-12-09] MEDS: LEVOTHYROXINE SODIUM 75 MCG TABLET PO SCH (04:23)
[2023-12-09 06:22] LABS: Basophils # (auto) 0.07 K/uL (0.00-0.20); Basophils % (auto) 0.9 %; Eosinophils # (auto) 0.22 K/uL (0.00-0.50); Eosinophils % (auto) 2.7 %; Hematocrit (blood only) 35.3 % (37.0-47.0); Hemoglobin 11.6 g/dl (12.0-16.0); Immature Granulocytes # (auto) 0.03 K/uL (0.01-0.20); Immature Granulocytes % (auto) 0.4 %; Lymphocytes # (auto) 1.44 K/uL (1.20-3.40); Mean Corpuscular Hgb Conc 32.9 g/dL (32.0-36.0); Mean Corpuscular Volume 88.3 fL (80.0-100.0); Monocytes # (auto) 0.84 K/uL (0.11-0.59); Monocytes % (auto) 10.5 %; Neutrophils # (auto) 5.42 K/uL (1.40-6.50); Neutrophils % (auto) 67.5 %; Platelet Count 238 K/uL (130-400); RDW Coefficient of Variation 14.5 % (11.5-14.5); RDW Standard Deviation 46.8 fL (36.4-46.3); White Blood Count 8.02 K/ul (4.8-10.8)
[2023-12-09 06:44] LABS: Albumin Level 3.2 gm/dl (3.4-5.0); BUN Creatinine Ratio 25.9 (10-20); Bilirubin,Total 0.7 mg/dl (0.2-1.0); Creatinine Clr Calc Pharmacy 96.3 ml/min; Est GFR (African American) 81.8 ml/min; Est GFR (Non-African American) 70.5 ml/min; Globulin 3.2 gm/dl (2.5-4.0); Magnesium 1.9 mg/dl (1.7-2.4); Potassium 3.9 mmol/L (3.5-5.1); Total Protein 6.4 gm/dl (6.0-8.3)
[2023-12-09 06:52] LABS: ANTI-Xa, UFH(UnfractionatedHep 0.45 IU/ml (0.3-0.7); Prothrombin Time 11.1 Seconds (9.0-12.0)
--- NOTE | 2023-12-09 07:46 | Hospitalist Progress Note ---
Date of Service December 09, 2023 Assessment & Plan (1) RIOS (dyspnea on exertion): Plan: Progressive acute shortness of breath/RIOS x 2-3 months with increased LE edema/swelling Bilateral PE due to right popliteal DVT +/- right saphenous vein SVT. Possible acute on chronic exacerbation of CHF (HFpEF) Venous doppler obtained due to R leg swelling, impression w/ Occlusive thrombus within the right popliteal vein and adjacent lesser saphenous vein --prior hx PE ~ 10 years ago and underwent tx w/ PO anticoagulation w/ no reported hx major bleeding/reaction to heparin in the past CTA chest with extensive bilateral pulmonary embolis, cardiomegaly with evidence of pulmonary artery hypertension. Cirrhotic liver morphology (also notes calcified lesion thoracic spine as below) Placed on Heparin gtt, transitioned to Eliquis morning 12/09 Continue eliquis 10mg PO BID x 7 days, then 5mg BID thereafter. -CM rivas checking given patient report/concerns about cost ECHO w/ EF 50-55%, no wma. Does note grade I diastolic dysfunction. IVC mildly dilated Started metoprolol tartrate 12.5mg BID -consider advancing GDMT Acute on chronic diastolic heart failure s/p 20mg IV lasix in ER (on torsemide 10mg daily "prn" at home) Discussed given Na 135, LE swelling and patient/daughter in room reporting significant increase in LE swelling on admission. Checking TSH w/ AM labs as well given on 225mcg daily supplementation at baseline --> Torsemide 10mg PO resumed for today (12/09) and scheduled daily for now. Urine in parra now clear yellow and will monitor. Hopefully able to dc parra in AM if ambulation improved w/ PT PT/OT consulted, rehab recommended. CM notified/to follow. Patient agreeable as long as covered by insurance (2) Bilateral lower extremity edema: Plan: 2nd to DVT as well as suspected volume overload. R>LLE swelling, doppler as above. Heparin --> eliquis for today, checking rivas s/p 20mg IV lasix in ER, BNP 658 on admission Resumed torsemide 10mg daily as above but made SCHEDULED. will repeat BNP w/ AM labs for comparison, check daily weights/I&O. Parra in place, trial removal in AM discussed (3) Hypothyroidism: Plan: Continue levothyroxine 225mcg daily check TSH w/ AM labs (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: Plan: -Ileostomy is functioning at baseline per patient -Does have signs of fungal infection on the skin under the ostomy bag and nystatin ordered. Stable on repeat exam and monitor (5) Lightheadedness: Plan: Likely due to orthostasis as symptoms occur while standing and are relieved at rest however suspect 2nd to extensive PEs as above, also some volume overload. IV diuretics not ordered, but placed on home torsemide as above and monitor closely w/ diuretics but suspect increased diuretic need and will monitor See above Fall precautions, PT/OT consults to be undertaken (6) Elevated troponin: Plan: Initial high sen trop elevated at 21 with 2 hour repeat down to 20 Patient denies chest pain, no acute ST segment or T-wave changes on ECG . Suspect elevation 2nd to demand ischemia from volume overload but also PE as above No CP reported. NSR on monitor w/ PACs (7) Cirrhosis: Plan: Per review of previous [facility] notes the patient is followed outpatient by Dr. Bonilla but has not had a formal outpatient evaluation. LFTs wnl on admission, INR 1.0 US abd s/p IV diuretics in ER w/o abdominal ascites for tap, diuretics as outlined above Outpt f/u with [facility] at discharge Heart healthy diet, 1800mL fluid restriction Consider daily low dose torsemide SCHEDULED as above, +/- spironolactone (8) Diabetes mellitus, type 2: Plan: -Hold metformin while inpatient and utilizing SSI while inpatient. A1c 6.5 BSGs acceptable and will monitor (9) Abdominal fistula: Plan: Follows with [facility] Colorectal Surgery, Dr. Bonilla and reportedly was on Cipro/Flagyl on admission and reported improvement while on abx -- No abx ordered, will need to verify w/ patient/reordered if needed --> REORDRED CIPRO 500mg BID, FLAGYL 500mg TID (based on prior rx fill, month supply), outpt f/u at dc - (10) Abnormal finding on imaging: Plan: On CTA of chest, report noting a 4.6 cm calcified extra-axial lesion in the left aspect of the thoracic spinal canal at T6-T7. This severely effaces the thecal sac, and could represent iatrogenic change or possibly a calcified extra-axial mass lesion such as a meningioma or nerve sheath tumor. Clinical correlation will be required. This is not an acute finding and and should be correlated with any prior outside chest imaging. Nonemergent follow up with neurology is advised. Plan continued inpatient stay, transitioned to DOAC (CM rivas checking) rehab planned at [facility], CM to follow Admission and Anticipated Discharge Date Admission Date: December 07, 2023 Subjective Eval this afternoon, daughter in room. Patient worked with therapy, discussed recs for rehab. CM notified. Questions about transport to rehab/timing (daughter able to assist with transport but works til ~1-2pm daily and discussed will notify day prior to [facility] about transport/timing). Transitioned to Eliquis this morning, patient inquiring about cost and will have CM check. Takes torsemide "as needed" for swelling, which they report was significant on admission. Discussed given this morning, parra w/ clear yellow urine and will continue daily/monitoring of labs. No parra at baseline but difficulty getting up and was placed on admission. Discussed will attempt to remove in AM if ambulating a little better. No CP/SOB reported. Ostomy emptied this morning, liquid stool present at this time. Questions/concerns addressed at this time. Physical Exam 2 Physical Exam: 78yo morbidly obese female sitting up in recliner chair, NAD, daughter at bedside head atraumatic, thick neck, mmm, trachea midline resp: diminished in the bases, no w/c/r, on room air cv: rrr, +systolic murmur, +b/l edema (worse on the right), 1+ pitting edema, calves nontender gi: +BS throughout, ostomy present RLQ w liquid stool output, nontender gu: parra w/ clear yellow urine at present msk/neuro; nonfocal but generalized weakness, no slurred speech/facial droop psych: aox3, cooperative with exam Results & Data Results & Data Vital Signs (Past 12 Hours) Vital Signs Temp Pulse Pulse Pulse Resp BP Pulse Ox 12/09/23 07:32 36.3 C L 68 18 120/68 93 12/09/23 05:51 79 12/09/23 03:00 36.4 C L 80 20 112/77 92 12/09/23 00:00 83 12/08/23 22:00 36.6 C 85 20 121/78 93 O2 Del Method 12/09/23 07:32 Room Air 12/09/23 05:51 12/09/23 03:00 Room Air 12/09/23 00:00 12/08/23 22:00 Room Air Laboratory Results 12/09/23 05:33 12/09/23 05:33 PG Care Time/CCT Total # of Minutes Spent Total Time Spent with Patient: Total time spent is greater than 50% in coordination of care (as documented) at patient's floor/unit and/or counseling patient: Coding Level of Care Code 98957 SUB INP/OBS CARE 3/50MIN Diagnoses RIOS (dyspnea on exertion) R06.09 Bilateral lower extremity edema R60.0 Hypothyroidism E03.[address] Z93.2 Lightheadedness R42 Elevated troponin R79.89 Cirrhosis K74.60 Diabetes mellitus, type 2 E11.9 Abdominal fistula K63.2 Abnormal finding on imaging R93.89
[2023-12-09] MEDS: INSULIN ASPART PER UNIT CHARGE SC SCH ×4 (08:39→21:00)
[2023-12-09] MEDS: METOPROLOL TARTRATE 25 MG TAB PO SCH ×2 (08:41→21:04)
[2023-12-09] MEDS: NYSTATIN CR 15 GM TUBE EXT SCH ×3 (08:43→21:03)
[2023-12-09] MEDS: APIXABAN 5 MG TABLET PO SCH ×2 (08:43→21:04)
[2023-12-09] MEDS: TORSEMIDE 10 MG TAB PO SCH (09:33)
[2023-12-09] MEDS: metroNIDAZOLE 500 MG TAB PO SCH ×2 (16:07→21:05)
[2023-12-09] MEDS: CIPROFLOXACIN 500 MG TAB PO SCH (21:04)
[2023-12-09] MEDS: MELATONIN 3 MG TAB PO PRN (22:32)
[2023-12-10] MEDS: LEVOTHYROXINE SODIUM 75 MCG TABLET PO SCH (06:11)
[2023-12-10 07:18] LABS: Basophils # (auto) 0.05 K/uL (0.00-0.20); Basophils % (auto) 0.7 %; Eosinophils # (auto) 0.25 K/uL (0.00-0.50); Eosinophils % (auto) 3.5 %; Hematocrit (blood only) 37.4 % (37.0-47.0); Hemoglobin 11.9 g/dl (12.0-16.0); Immature Granulocytes # (auto) 0.03 K/uL (0.01-0.20); Immature Granulocytes % (auto) 0.4 %; Lymphocytes # (auto) 1.15 K/uL (1.20-3.40); Lymphocytes % (auto) 16.3 %; Mean Corpuscular Hemoglobin 28.5 pg (25.0-34.0); Mean Corpuscular Hgb Conc 31.8 g/dL (32.0-36.0); Mean Corpuscular Volume 89.5 fL (80.0-100.0); Mean Platelet Volume 10.7 fL (9.4-12.4); Monocytes % (auto) 9.9 %; Neutrophils # (auto) 4.89 K/uL (1.40-6.50); Neutrophils % (auto) 69.2 %; Platelet Count 220 K/uL (130-400); RDW Coefficient of Variation 14.5 % (11.5-14.5); RDW Standard Deviation 47.2 fL (36.4-46.3); Red Blood Count 4.18 M/uL (4.20-5.40); White Blood Count 7.07 K/ul (4.8-10.8)
--- NOTE | 2023-12-10 07:26 | Hospitalist Progress Note ---
Date of Service December 10, 2023 Assessment & Plan (1) RIOS (dyspnea on exertion): Plan: Progressive acute shortness of breath/RIOS x 2-3 months with increased LE edema/swelling Bilateral PE due to right popliteal DVT +/- right saphenous vein SVT. Possible acute on chronic exacerbation of CHF (HFpEF) Venous doppler obtained due to R leg swelling, impression w/ Occlusive thrombus within the right popliteal vein and adjacent lesser saphenous vein --prior hx PE ~ 10 years ago and underwent tx w/ PO anticoagulation w/ no reported hx major bleeding/reaction to heparin in the past CTA chest with extensive bilateral pulmonary emboli, cardiomegaly with evidence of pulmonary artery hypertension. Cirrhotic liver morphology (also notes calcified lesion thoracic spine as below) ECHO w/ EF 50-55%, no wma. Does note grade I diastolic dysfunction. IVC mildly dilated (see diuretics below) Started metoprolol tartrate 12.5mg BID -consider advancing GDMT but BP stable/HR stable and will continue this for now Placed on Heparin gtt, transitioned to Eliquis morning 12/09 Continue eliquis 10mg PO BID x 7 days, then 5mg BID thereafter. Rivas checked by CM ($47/mo, to provide 1st month coupon) No bleeding reported 93% on RA and tolerating eliquis. Acute on chronic diastolic heart failure increased LE edema/SOB on admission, elevated BNP 658 and imaging w/ evidence for pulmonary edema/volume overload as well as dilated IVC on ECHO s/p 20mg IV lasix in ER Patient on torsemide 10mg daily "prn" at home for leg swelling but doesn't always take it Given not continued on diuretics and appearing slightly volume up, decision to make TORSEMIDE 10mg DAILY SCHEDULED 12/09 and renal function stable and will continue. BNP improved 436 on repeat Placed fluid restriction for 1800ml/daily and likely will need counseling regarding low salt diet, especially given underlying cirrhosis (US abd w/o enough fluid for tap) May need to consider giving additional dose for tomorrow, Plan to dc parra tomorrow/[employer] PT/OT consulted and planning for rehab at [facility]. Applied for Auth today per CM, likely will not hear back today (2) Bilateral lower extremity edema: Plan: 2nd to DVT as well as suspected volume overload. R>LLE swelling, doppler as above. Heparin --> eliquis for today, checking rivas s/p 20mg IV lasix in ER, BNP 658 on admission Torsemide resumed and made scheduled as above w/ improvement in edema as well as BNP and renal function stable Monitor weights/I&Os (3) Hypothyroidism: Plan: Continue levothyroxine 225mcg daily. TSH wnl on check (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: Plan: Ileostomy is functioning at baseline per patient . Changed AM 12/10 by nursing, daughter to bring in some supplies from home Does have signs of fungal infection on the skin under the ostomy bag and nystatin ordered. Stable on repeat exam and improved. Also resumed home abx as below (5) Lightheadedness: Plan: Likely due to orthostasis as symptoms occur while standing and are relieved at rest however suspect 2nd to extensive PEs as above, also some volume overload. IV diuretics not ordered, but placed on home torsemide as above and monitor closely w/ diuretics but suspect increased diuretic need and will monitor See above Fall precautions, PT/OT consults to be undertaken No symptoms reported today (6) Elevated troponin: Plan: Initial high sen trop elevated at 21 with 2 hour repeat down to 20 Patient denies chest pain, no acute ST segment or T-wave changes on ECG . Suspect elevation 2nd to demand ischemia from volume overload but also PE as above No CP reported. NSR on monitor w/ PACs (7) Cirrhosis: Plan: Per review of previous [facility] notes the patient is followed outpatient by Dr. Bonilla but has not had a formal outpatient evaluation. LFTs wnl on admission, INR 1.0 US abd s/p IV diuretics in ER w/o abdominal ascites for tap, diuretics as outlined above Outpt f/u with [facility] at discharge Heart healthy diet, 1800mL fluid restriction added will need additional counseling at discharge Torsemide changed to scheduled daily as above. Consideration for increased dose +/- spironolactone pending volume status in AM (8) Diabetes mellitus, type 2: Plan: -Hold metformin while inpatient and utilizing SSI while inpatient. A1c 6.5 BSGs acceptable and will monitor (9) Abdominal fistula: Plan: Follows with [facility] Colorectal Surgery, Dr. Bonilla and reportedly was on Cipro/Flagyl on admission and reported improvement while on abx - No abx ordered, will need to verify w/ patient/reordered if needed --> ORDERED CIPRO 500mg BID, FLAGYL 500mg TID (based on prior rx fill, month supply) on 12/09 and continued Reported improvement on exam/changing ostomy Continue abx as outlined, outpatient f/u [facility] (10) Abnormal finding on imaging: Plan: On CTA of chest, report noting a 4.6 cm calcified extra-axial lesion in the left aspect of the thoracic spinal canal at T6-T7. This severely effaces the thecal sac, and could represent iatrogenic change or possibly a calcified extra-axial mass lesion such as a meningioma or nerve sheath tumor. Clinical correlation will be required. This is not an acute finding and and should be correlated with any prior outside chest imaging. Nonemergent follow up with neurology is advised. Plan continued inpatient stay, auth pending for [facility] when bed available Admission and Anticipated Discharge Date Admission Date: December 07, 2023 Subjective eval this morning, nursing changing ostomy. Discussed resuming abx for her fistulas, small area on change of ostomy but reports looking much better overall. some pain to her hip but thinks from being in the bed for so long. Tolerating Eliquis, no bleeding reported. Renal function stable with torsemide and discussed continuing such/monitoring renal function. She does get cramps at home taking water pill and takes potassium for such. Discussed K stable and will monitor. Can also consider low dose spironolactone for additional diuretic/potassium sparing if needed. Parra in place, clear yellow urine draining. Discussed continuing for today given diuretics but if mobility improving would rec to dc in AM and we can attempt to use purewick for ongoing assistance w/ incontinence. Physical Exam 2 Physical Exam: 78yo morbidly obese female up in bed, guillen ving ostomy changed by nursing, NAD, appears improved head atraumatic, thick neck, mmm, trachea midline resp: diminished in the bases (improved) no w/c/r, on room air cv: rrr, +systolic murmur, +b/l edema (worse on the right)- IMPROVED, calves nontender gi: +BS throughout, ostomy currently being changed, beefy red stump, fistulas reportedly much improved gu: parra w/ yellow urine at present msk/neuro; nonfocal but generalized weakness, no slurred speech/facial droop psych: aox3, cooperative with exam Results & Data Results & Data Vital Signs (Past 12 Hours) Vital Signs Temp Pulse Pulse Resp BP Pulse Ox O2 Del Method 12/10/23 03:00 36.4 C L 74 18 113/76 93 Room Air 12/09/23 23:00 78 12/09/23 22:00 36.8 C 80 20 133/56 L 93 Room Air Laboratory Results 12/10/23 06:33 12/10/23 06:33 Mag 1.8 BNP 436 Albumin 3.2 TSH 1.405 PG Care Time/CCT Total # of Minutes Spent Total Time Spent with Patient: Total time spent is greater than 50% in coordination of care (as documented) at patient's floor/unit and/or counseling patient: Coding Level of Care Code 50800 SUB INP/OBS CARE 3/50MIN Diagnoses RIOS (dyspnea on exertion) R06.09 Bilateral lower extremity edema R60.0 Hypothyroidism E03.[address] Z93.2 Lightheadedness R42 Elevated troponin R79.89 Cirrhosis K74.60 Diabetes mellitus, type 2 E11.9 Abdominal fistula K63.2 Abnormal finding on imaging R93.89
[2023-12-10 07:40] LABS: Albumin Level 3.2 gm/dl (3.4-5.0); BUN Creatinine Ratio 26.2 (10-20); Bilirubin,Total 0.6 mg/dl (0.2-1.0); Creatinine Clr Calc Pharmacy 92.4 ml/min; Est GFR (African American) 78.2 ml/min; Est GFR (Non-African American) 67.5 ml/min; Globulin 3.2 gm/dl (2.5-4.0); Magnesium 1.8 mg/dl (1.7-2.4); Potassium 4.3 mmol/L (3.5-5.1); Total Protein 6.4 gm/dl (6.0-8.3)
[2023-12-10 07:51] LABS: INR 1.1 (0.9-1.1); Prothrombin Time 11.8 Seconds (9.0-12.0)
[2023-12-10 07:55] LABS: Thyroid Stimulating Hormone 1.405 uIu/ml (0.300-4.500)
[2023-12-10] MEDS: metroNIDAZOLE 500 MG TAB PO SCH ×2 (07:56→15:14)
[2023-12-10] MEDS: APIXABAN 5 MG TABLET PO SCH ×2 (07:56→21:19)
[2023-12-10] MEDS: CIPROFLOXACIN 500 MG TAB PO SCH ×2 (07:56→21:19)
[2023-12-10] MEDS: TORSEMIDE 10 MG TAB PO SCH (07:57)
[2023-12-10] MEDS: METOPROLOL TARTRATE 25 MG TAB PO SCH ×2 (07:57→21:20)
[2023-12-10] MEDS: NYSTATIN CR 15 GM TUBE EXT SCH ×3 (07:58→21:21)
[2023-12-10] MEDS: INSULIN ASPART PER UNIT CHARGE SC SCH ×4 (08:26→21:18)
[2023-12-10] MEDS: ACETAMINOPHEN 325 MG TAB PO PRN (21:24)
[2023-12-11] MEDS: MELATONIN 3 MG TAB PO PRN ×2 (00:25→20:41)
[2023-12-11] MEDS: metroNIDAZOLE 500 MG TAB PO SCH ×4 (00:25→20:42)
[2023-12-11] MEDS: LEVOTHYROXINE SODIUM 75 MCG TABLET PO SCH (05:39)
--- NOTE | 2023-12-11 07:27 | Hospitalist Progress Note ---
Date of Service December 11, 2023 Assessment & Plan (1) RIOS (dyspnea on exertion): Plan: Progressive acute shortness of breath/RIOS x 2-3 months with increased LE edema/swelling Bilateral PE due to right popliteal DVT +/- right saphenous vein SVT. Possible acute on chronic exacerbation of CHF (HFpEF) Venous doppler obtained due to R leg swelling, impression w/ Occlusive thrombus within the right popliteal vein and adjacent lesser saphenous vein --prior hx PE ~ 10 years ago and underwent tx w/ PO anticoagulation w/ no reported hx major bleeding/reaction to heparin in the past CTA chest with extensive bilateral pulmonary emboli, cardiomegaly with evidence of pulmonary artery hypertension. Cirrhotic liver morphology (also notes calcified lesion thoracic spine as below) ECHO w/ EF 50-55%, no wma. Does note grade I diastolic dysfunction. IVC mildly dilated (see diuretics below) Started metoprolol tartrate 12.5mg BID -consider advancing GDMT but BP stable/HR stable and will continue this for now Heparin gtt transitioned to Eliquis AM 12/09. 10mg BID x 7 days (through PM 12/15) then 5mg BID thereafter. Rivas checked, $47 Tolerating without bleeding/issue, 93% on Room Air Acute on chronic diastolic heart failure increased LE edema/SOB on admission, elevated BNP 658 and imaging w/ evidence for pulmonary edema/volume overload as well as dilated IVC on ECHO s/p 20mg IV lasix in ER Patient on torsemide 10mg daily "prn" at home for leg swelling but doesn't always take it Given not continued on diuretics and appearing slightly volume up, decision to make TORSEMIDE 10mg DAILY SCHEDULED 12/09 and renal function stable and will continue. Fluid restriction 1800mL daily, low salt diet (hx cirrhosis) Na improved/stable 137. BUN/Cr 26/1.09 and stable/expected rise w/ diuresis however BP stable/no symptoms LE improving and will continue daily 10mg scheduled for now - consider q2d dosing pending AM labs/exam to prevent overdiuresis Monitor I&O, daily weights (Wt 160kg) Parra to be removed today, increased ambulation encouraged. -Can use purewick if needed given patient concerns PT/OT consulted, rehab as below when bed available. CM following (2) Bilateral lower extremity edema: Plan: 2nd to DVT as well as suspected volume overload. R>LLE swelling, doppler as above. Heparin --> eliquis for today, checking rivas s/p 20mg IV lasix in ER, BNP 658 on admission Torsemide resumed 12/09 but DAILY SCHEDULED as above --> BNP improved, LE edema improved and breathing stable/improved Monitor need for daily vs q2d dosing as above at ct (3) Hypothyroidism: Plan: Continue levothyroxine 225mcg daily. TSH wnl on check (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: Plan: Ileostomy is functioning at baseline per patient . Changed AM 12/10 by nursing, daughter to bring in some supplies from home Does have signs of fungal infection on the skin under the ostomy bag and nystatin ordered. Stable on repeat exam and improved. Also resumed home abx as below (5) Lightheadedness: Plan: Likely due to orthostasis as symptoms occur while standing and are relieved at rest however suspect 2nd to extensive PEs as above, also some volume overload and diuresis as outlined No arrhythmia on monitor, occasional PVCs Fall precautions, PT/OT evals No symptoms of such reported 12/11 w/ continued diuretics. BP stable 121/78 and on metoprolol tartrate 12.5mg BID as above as well (6) Elevated troponin: Plan: Initial high sen trop elevated at 21 with 2 hour repeat down to 20 Patient denies chest pain, no acute ST segment or T-wave changes on ECG . Suspect elevation 2nd to demand ischemia from volume overload but also PE as above No CP reported. NSR on monitor w/ PACs (7) Cirrhosis: Plan: Per review of previous [facility] notes the patient is followed outpatient by Dr. Bonilla but has not had a formal outpatient evaluation. LFTs wnl on admission, INR 1.0 US abd s/p IV diuretics in ER w/o abdominal ascites for tap, diuretics as outlined above Outpt f/u with [facility] at discharge Heart healthy diet, 1800mL fluid restriction added -will need additional counseling at discharge Torsemide to scheduled daily as above. Consideration for scheduled dosing at ct as above (8) Diabetes mellitus, type 2: Plan: -Hold metformin while inpatient and utilizing SSI while inpatient. A1c 6.5 BSGs acceptable 113-160 over last 24 hours Monitor (9) Abdominal fistula: Plan: Follows with [facility], Dr. Bonilla and reportedly was on Cipro/Flagyl on admission and reported improvement while on abx - No abx ordered, will need to verify w/ patient/reordered if needed --> ORDERED CIPRO 500mg BID, FLAGYL 500mg TID (based on prior rx fill, month supply) on 12/09 and continued Reported improvement on exam/changing ostomy 12/10 Continue abx as outlined, outpatient f/u [facility] (10) Abnormal finding on imaging: Plan: On CTA of chest, report noting a 4.6 cm calcified extra-axial lesion in the left aspect of the thoracic spinal canal at T6-T7. This severely effaces the thecal sac, and could represent iatrogenic change or possibly a calcified extra-axial mass lesion such as a meningioma or nerve sheath tumor. Clinical correlation will be required. This is not an acute finding and and should be correlated with any prior outside chest imaging. Nonemergent follow up with neurology is advised. (11) CHF (congestive heart failure): Plan: HFrEF, EF 50-55% on echo. On torsemide "prn" for hx cirrhosis. Increased edema/swelling on admission. DVT/PE as above but also suspected volume overload given 20mg IV lasix in ER w/ good diuresis and was to be continued but not ordered. Resumed her torsemide but made DAILY rather than prn and suspect w/ hx cirrhosis needing daily dosing or at LEAST more frequent dosing See above, will need ongoing monitoring of weights/edema in follow up to consider further adjustment. Also needing f/u GI outpatient as above Plan continued inpatient stay, needing rehab at ct- [facility] denied. CM awaiting return call from [facility] to see if bed available for SNF. If so, will need to submit for auth. CM to follow Admission and Anticipated Discharge Date Admission Date: December 07, 2023 Supervising Physician Co-Signing Physician Notes The patient was not seen by me. The chart was reviewed. Case discussed with KINDRA Wilkinson. Agree with assessment and plan Subjective eval this morning, legs looking better w/ continued diuretics. renal function stable and will monitor. [facility] denied and will need to look into alternative SNF facilities. CM to follow. Breathing stable/no SOB. Appetite fair/ok, 2nd to the flagyl use but treating the fistulas and continued. No bleeding, CP, lightheaded/dizziness. Discussed likely everyday torsemide vs Q2D. Parra to be removed today. Discussed purewick if needed but ideally increased ambulation. Continued inpatient stay while working on rehab/placement. Physical Exam 2 Physical Exam: 78yo morbidly obese female up in bed, NA D, appears improved head atraumatic, +thick neck, trachea midline resp: improvement in entry to bases, no significant w/c/r, on room air 93% CV: rrr, +systolic murmur, b/l LE edema much improved . (R>L 2nd to DVT), calves nontender gi: +BS throughout, ostomy changed yesterday. nontender gu: parra w/ yellow urine at present (to be removed by nursing) msk/neuro; nonfocal but generalized weakness, no slurred speech/facial droop psych: aox3, cooperative with exam Results & Data Results & Data Vital Signs (Past 12 Hours) Vital Signs Temp Pulse Pulse Resp BP Pulse Ox O2 Del Method 12/11/23 06:12 64 12/11/23 04:12 36.3 C L 73 20 108/73 92 Room Air 12/11/23 00:07 36.6 C 68 18 124/77 92 Room Air 12/10/23 22:36 64 12/10/23 19:52 36.3 C L 73 18 108/67 90 Room Air Laboratory Results 12/10/23 06:33 12/11/23 06:59 Mag 1.8 PG Care Time/CCT Total # of Minutes Spent Total Time Spent with Patient: Total time spent is greater than 50% in coordination of care (as documented) at patient's floor/unit and/or counseling patient: Coding Level of Care Code 99859 SUB INP/OBS CARE 3/50MIN Diagnoses RIOS (dyspnea on exertion) R06.09 Bilateral lower extremity edema R60.0 Hypothyroidism E03.[address] Z93.2 Lightheadedness R42 Elevated troponin R79.89 Cirrhosis K74.60 Diabetes mellitus, type 2 E11.9 Abdominal fistula K63.2 Abnormal finding on imaging R93.89 CHF (congestive heart failure) I50.9 Heart failure chronicity: acute Heart failure type: unspecified (11) CHF (congestive heart failure) Heart failure chronicity: acute Heart failure type: unspecified Qualified Code(s): I50.9 - Heart failure, unspecified
[2023-12-11 08:24] LABS: BUN Creatinine Ratio 23.9 (10-20); Creatinine Clr Calc Pharmacy 70.9 ml/min; Est GFR (African American) 57.1 ml/min; Est GFR (Non-African American) 49.3 ml/min; Magnesium 1.8 mg/dl (1.7-2.4); Potassium 4.3 mmol/L (3.5-5.1)
[2023-12-11] MEDS: METOPROLOL TARTRATE 25 MG TAB PO SCH ×2 (08:33→20:43)
[2023-12-11] MEDS: NYSTATIN CR 15 GM TUBE EXT SCH ×3 (08:34→20:41)
[2023-12-11] MEDS: APIXABAN 5 MG TABLET PO SCH ×2 (08:34→20:42)
[2023-12-11] MEDS: CIPROFLOXACIN 500 MG TAB PO SCH ×2 (08:34→20:43)
[2023-12-11] MEDS: TORSEMIDE 10 MG TAB PO SCH (08:34)
[2023-12-11] MEDS: INSULIN ASPART PER UNIT CHARGE SC SCH ×4 (08:36→20:45)
--- NOTE | 2023-12-11 10:19 | Discharge Summary ---
Date of Service December 11, 2023 Admission HPI Per Admitting Provider Symone is a 78 year old female with a PMH significant for DMII, Chron's disease S/P total proctocolectomy with current colostomy status, CESAR, GERD, and hyperlipidemia who presented to the [facility] via EMS on 12/07 with complaints of progressive RIOS/SOB, LE swelling, and dizziness. She was noted to be stable in the ED. Labs were significant for a BNP of 658 (no previous to compare to), initial high sen trop of 21, and covid 19/RSV/Influenza negative. Chest xray was read as negative for acute findings, but on review appears consistent with CHF with Cardiomegaly and increased pulmonary vascular congestion. Prior to admission the patient was given 20 mg IV lasix. At the time of the exam the patient was lying in bed in no acute distress with her Daughter sitting bedside. The patient states that she has been expe riencing progressive weight gain, swelling, generalized weakness, and lightheadedness/dizziness with standing over the past 1-2 months. She states that she woke this am and walked to the bathroom, she experienced significant SOB/RIOS while walking. She denies the room spinning and states that she feels too weak to be at home alone at this time. She called EMS this am as her symptoms continue to progress. She and her daughter explain that the patient has been on oral Flagyl and Ciprofloxacin for months for her ongoing issue with fistulas near her ostomy site. She follows with Dr. Forman of [facility]. They report that he wants her to be evaluated by [facility] for possible surgical repair of the fistulas. They report that her fistulas have been improving since being on antibiotics. She denies recent fever, chills, chest pain, cough, abd pain, nausea, vomiting, changes in ostomy output, dysuria, and recent trauma. She is a full code and would want her daughter to make medical decisions for her if she cannot make decisions herself. Please refer to Dr. Conti's attestation for any changes to DVT PPX Discharge Data Allergies Allergy/AdvReac Type Severity Reaction Status Date / Time red dye Allergy Severe Anaphylaxis Verified 03/10/23 13:54 Consultations 12/07/23 12:09 ED Decision to Admit Stat Ordered Studies 12/07/23 13:04 US venous doppler LE RT Routine 12/07/23 13:14 US abdomen ltd ascites Routine 12/07/23 15:30 CT angio chest PE protocol Urgent Discharge Plan Discharge Items Reason For Visit: SOB, WEIGHT GAIN, ORTHOSTASIS SYMPTOMS Follow-up/Referrals: Tanisha Reyes MD [Primary Care Provider] - Medications and DC Order Prescriptions: New Eliquis 5 mg tablet 5 mg PO BID Qty: 60 0RF No Action diclofenac sodium [Voltaren Arthritis Pain] 1 % gel 2 g topical QID Qty: 200 2RF Rx Instructions: apply to single elbow, wrist or hand; for hand includes palm/fingers/back of hand levothyroxine 200 mcg Tablet 200 mcg PO QAM Patient Comments: takes 200 mcg with 25 mcg for dose of 225 mcg cyanocobalamin (vitamin B-12) [Vitamin B-12] 1,000 mcg Tablet 1,000 mcg PO QAM cholecalciferol (vitamin D3) [Vitamin D3] 50 mcg (2,000 unit) Capsule 50 mcg PO QAM levothyroxine 25 mcg Tablet 25 mcg PO QAM Patient Comments: takes with 200 mcg metformin 500 mg Tablet 500 mg PO BID pravastatin 40 mg Tablet 40 mg PO HS torsemide 10 mg Tablet 10 mg PO DAILY PRN (Reason: edema in feet) calcium carbonate [Calcium 600] 600 mg calcium (1,500 mg) Tablet 600 mg PO BID Align 4 mg Capsule 4 mg PO QAM potassium chloride 20 mEq Tablet Extended Release 20 meq PO DAILY PRN (Reason: takes when taking torsemide) famotidine [Pepcid] 20 mg Tablet 20 mg PO DAILY PRN (Reason: Acid Reflux) Patient Comments: hardly uses Krames/Other Patient Handouts: Managing Type 2 Diabetes Admission Data Admit Date/Time: 12/07/23 12:43 Attending Provider: Alo Rice Admit Provider: Omer Conti Primary Care Provider: Tanisha Reyes Other Providers: Omer Conti; [facility],Health; [place],Care Coding
[2023-12-11] MEDS: ACETAMINOPHEN 325 MG TAB PO PRN (20:41)
[2023-12-12] MEDS: ACETAMINOPHEN 325 MG TAB PO PRN ×2 (02:29→21:13)
[2023-12-12] MEDS: metroNIDAZOLE 500 MG TAB PO SCH ×3 (06:35→21:13)
[2023-12-12] MEDS: LEVOTHYROXINE SODIUM 75 MCG TABLET PO SCH (06:35)
[2023-12-12 07:08] LABS: BUN Creatinine Ratio 28.2 (10-20); Calcium 8.2 mg/dl (8.6-10.3); Creatinine Clr Calc Pharmacy 65.9 ml/min; Est GFR (African American) 52.4 ml/min; Est GFR (Non-African American) 45.2 ml/min; Magnesium 1.8 mg/dl (1.7-2.4); Potassium 4.2 mmol/L (3.5-5.1)
--- NOTE | 2023-12-12 07:29 | Hospitalist Progress Note ---
Date of Service December 12, 2023 Assessment & Plan (1) RIOS (dyspnea on exertion): Plan: Progressive acute shortness of breath/RIOS x 2-3 months with increased LE edema/swelling Bilateral PE due to right popliteal DVT +/- right saphenous vein SVT. Possible acute on chronic exacerbation of CHF (HFpEF) Venous doppler obtained due to R leg swelling, impression w/ Occlusive thrombus within the right popliteal vein and adjacent lesser saphenous vein --prior hx PE ~ 10 years ago and underwent tx w/ PO anticoagulation w/ no reported hx major bleeding/reaction to heparin in the past CTA chest with extensive bilateral pulmonary emboli, cardiomegaly with evidence of pulmonary artery hypertension. Cirrhotic liver morphology (also notes calcified lesion thoracic spine as below) ECHO w/ EF 50-55%, no wma. Does note grade I diastolic dysfunction. IVC mildly dilated (see diuretics below) Started metoprolol tartrate 12.5mg BID -consider advancing GDMT but BP stable/HR stable and will continue this for now Heparin gtt transitioned to Eliquis AM 12/09 for 10mg BID x 7 days through PM 12/15 and then 5mg BID starting AM 12/16.$47 on rivas check Tolerating without bleeding/issue, 93% on Room Air Acute on chronic diastolic heart failure increased LE edema/SOB on admission, elevated BNP 658 and imaging w/ evidence for pulmonary edema/volume overload as well as dilated IVC on ECHO s/p 20mg IV lasix in ER Patient on torsemide 10mg daily "prn" at home for leg swelling but doesn't always take it Not continued on diuretics and appearing slightly volume up Decision to make TORSEMIDE 10mg DAILY SCHEDULED 12/09 and renal function stable on repeat and decreased LE edema and was continued Na improved/stabilized on repeat and placed torsemide on HOLD for today (12/12) f or BUN/Cr 33/1.17 and will monitor labs in AM and consider scheduling Q2D to maintain volume status Continue AHA diet, fluid restriction 1800mL daily (hx cirrhosis) Net negative 5L since admission Monitor I&O, daily weights (Wt 159.2kg- was 167.3kg on admit per records). Parra removed 12/11, can utilize purewick as needed PT/OT consulted, rehab as below when bed available. CM following (2) Bilateral lower extremity edema: Plan: 2nd to DVT as well as suspected volume overload. R>LLE swelling, doppler as above. Heparin --> eliquis for today, checking rivas s/p 20mg IV lasix in ER, BNP 658 on admission Torsemide resumed 12/09 but DAILY SCHEDULED as above, BNP/LE edema improved and breathing stable. Had been taking "as needed" however suspect q2d vs daily dosing required to maintain euvolemia at home/discharge Monitor (3) Hypothyroidism: Plan: Continue levothyroxine 225mcg daily. TSH wnl on check (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: Plan: Ileostomy is functioning at baseline per patient . Changed AM 12/10 by nursing, daughter to bring in some supplies from home Does have signs of fungal infection on the skin under the ostomy bag and nystatin ordered. Stable on repeat exam and improved. Also resumed home abx as below (5) Lightheadedness: Plan: Likely due to orthostasis as symptoms occur while standing and are relieved at rest however suspect 2nd to extensive PEs as above, also some volume overload and diuresis as outlined No arrhythmia on monitor, occasional PVCs Fall precautions, PT/OT evals No symptoms of such reported 12/12 w/ continued diuretics through day prior. BP stable 108/67 and torsemide on hold as above. Remains on metoprolol BID which was started while inpatient for above (6) Elevated troponin: Plan: Initial high sen trop elevated at 21 with 2 hour repeat down to 20 Patient denies chest pain, no acute ST segment or T-wave changes on ECG . Suspect elevation 2nd to demand ischemia from volume overload but also PE as above No CP reported. NSR on monitor w/ PACs (7) Cirrhosis: Plan: Per review of previous [facility] notes the patient is followed outpatient by Dr. Bonilla but has not had a formal outpatient evaluation. LFTs wnl on admissi on, INR 1.0 US abd s/p IV diuretics in ER w/o abdominal ascites for tap, diuretics as outlined above Outpt f/u with [facility] at discharge Heart healthy diet, 1800mL fluid restriction added -will need additional counseling at discharge Torsemide to scheduled daily as above. Consideration for scheduled dosing at [place] as above (8) Diabetes mellitus, type 2: Plan: Hold metformin while inpatient and utilizing SSI while inpatient. A1c 6.5 BSGs acceptable and will monitor (9) Abdominal fistula: Plan: Follows with [facility], Dr. Bonilla and reportedly was on Cipro/Flagyl on admission and reported improvement while on abx - No abx ordered, will need to verify w/ patient/reordered if needed --> ORDERED CIPRO 500mg BID, FLAGYL 500mg TID (based on prior rx fill, month supply) on 12/09 and continued Reported improvement on exam/changing ostomy 12/10 Continue abx as outlined, outpatient f/u [facility] (10) Abnormal finding on imaging: Plan: On CTA of chest, report noting a 4.6 cm calcified extra-axial lesion in the left aspect of the thoracic spinal canal at T6-T7. This severely effaces the thecal sac, and could represent iatrogenic change or possibly a calcified extra-axial mass lesion such as a meningioma or nerve sheath tumor. Clinical correlation will be required. This is not an acute finding and and should be correlated with any prior outside chest imaging. Nonemergent follow up with neurology is advised. (11) CHF (congestive heart failure): Plan: HFrEF, EF 50-55% on echo. On torsemide "prn" for hx cirrhosis. Increased edema/swelling on admission. DVT/PE as above but also suspected volume overload given 20mg IV lasix in ER w/ good diuresis and was to be continued but not ordered. Resumed her torsemide but made DAILY rather than prn and suspect w/ hx cirrhosis needing daily dosing or at LEAST more frequent dosing See above, will need ongoing monitoring of weights/edema in follow up to consider further adjustment. Also needing f/u GI outpatient as above Plan continued inpatient stay, CM following and denied [facility] and sent referral to [facility] and patient able to dc once bed available/insurance auth obtained Admission and Anticipated Discharge Date Admission Date: December 07, 2023 Supervising Physician Co-Signing Physician Notes The patient was not seen by me. The chart was reviewed. Case discussed with KINDRA Wilkinson. Agree with assessment and plan Subjective eval this morning, sitting up in bed, NAD but leaking ostomy and needing changed. parra removed yesterday, discussed holding torsemide for today but will monitor labs in AM/consider every other day dosing. No CP/SOB. Appetite alright. Awaiting placement for rehab at [facility], hopefully this upcoming week. Questions/concerns addressed at this time. Physical Exam Physical Exam: 78yo morbidly obese female up in bed, NA D, appears improved/stable head atraumatic, +thick neck, trachea midline resp: improvement in entry to bases, no significant w/c/r, on room air 93% CV: rrr, +systolic murmur, b/l LE edema much improved . (R>L 2nd to DVT), calves nontender gi: +BS throughout, ostomy leaking brown/greenish stool, abd nontender gu: no further parra msk/neuro; nonfocal but generalized weakness, no slurred speech/facial droop psych: aox3, cooperative with exam Results & Data Results & Data Vital Signs (Past 12 Hours) Vital Signs Temp Pulse Pulse Resp BP BP Pulse Ox 12/12/23 04:13 36.4 C L 74 18 119/69 93 12/11/23 23:16 36.5 C 76 18 125/70 91 12/11/23 22:00 78 12/11/23 20:27 36.4 C L 73 18 123/68 90 O2 Del Method 12/12/23 04:13 Room Air 12/11/23 23:16 Room Air 12/11/23 22:00 12/11/23 20:27 Room Air Laboratory Results 12/12/23 12/11/23 12/11/23 Range/Units 06:27 20:16 17:02 Sodium 138 (136-145) mmol/L Potassium 4.2 (3.5-5.1) mmol/L Chloride 100 (98-107) mmol/L Carbon Dioxide 30 (21-32) mmol/L Anion Gap 8 (3-11) BUN 33 H (6-23) mg/dl Creatinine 1.17 (0.6-1.2) mg/dl Est Cr Clr Drug Dosing 65.9 ml/min Est GFR ( Amer) 52.4 ml/min Est GFR (Non-Af Amer) 45.2 ml/min BUN/Creatinine Ratio 28.2 H (10-20) Glucose 138 H (70-99(Fasting)) mg/dl POC Glucose 124 H 136 H (70-99) mg/dl Calcium 8.2 L (8.6-10.3) mg/dl Magnesium 1.8 (1.7-2.4) mg/dl 12/11/23 12/11/23 12/11/23 Range/Units 12:20 08:09 06:59 Sodium 137 (136-145) mmol/L Potassium 4.3 (3.5-5.1) mmol/L Chloride 99 (98-107) mmol/L Carbon Dioxide 30 (21-32) mmol/L Anion Gap 8 (3-11) BUN 26 H (6-23) mg/dl Creatinine 1.09 (0.6-1.2) mg/dl Est Cr Clr Drug Dosing 70.9 ml/min Est GFR ( Amer) 57.1 ml/min Est GFR (Non-Af Amer) 49.3 ml/min BUN/Creatinine Ratio 23.9 H (10-20) Glucose 136 H (70-99(Fasting)) mg/dl POC Glucose 122 H 160 H (70-99) mg/dl Calcium 8.0 L (8.6-10.3) mg/dl Magnesium 1.8 (1.7-2.4) mg/dl PG Care Time/CCT Total # of Minutes Spent Total Time Spent with Patient: Total time spent is greater than 50% in coordination of care (as documented) at patient's floor/unit and/or counseling patient: Coding Level of Care Code 55386 SUB INP/OBS CARE 3/50MIN Diagnoses RIOS (dyspnea on exertion) R06.09 Bilateral lower extremity edema R60.0 Hypothyroidism E03.[address] Z93.2 Lightheadedness R42 Elevated troponin R79.89 Cirrhosis K74.60 Diabetes mellitus, type 2 E11.9 Abdominal fistula K63.2 Abnormal finding on imaging R93.89 CHF (congestive heart failure) I50.9 Heart failure chronicity: acute Heart failure type: unspecified (11) CHF (congestive heart failure) Heart failure chronicity: acute Heart failure type: unspecified Qualified Code(s): I50.9 - Heart failure, unspecified
[2023-12-12] MEDS: INSULIN ASPART PER UNIT CHARGE SC SCH ×4 (09:06→21:17)
[2023-12-12] MEDS: APIXABAN 5 MG TABLET PO SCH ×2 (09:07→21:13)
[2023-12-12] MEDS: METOPROLOL TARTRATE 25 MG TAB PO SCH ×2 (09:08→21:14)
[2023-12-12] MEDS: NYSTATIN CR 15 GM TUBE EXT SCH ×3 (09:08→21:13)
[2023-12-12] MEDS: CIPROFLOXACIN 500 MG TAB PO SCH ×2 (09:08→21:14)
[2023-12-12] MEDS: MELATONIN 3 MG TAB PO PRN (21:13)
[2023-12-13 05:59] LABS: Hematocrit (blood only) 37.2 % (37.0-47.0); Hemoglobin 12.3 g/dl (12.0-16.0); Mean Corpuscular Hemoglobin 29.1 pg (25.0-34.0); Mean Corpuscular Hgb Conc 33.1 g/dL (32.0-36.0); Mean Corpuscular Volume 88.2 fL (80.0-100.0); Mean Platelet Volume 10.2 fL (9.4-12.4); Platelet Count 303 K/uL (130-400); RDW Coefficient of Variation 14.8 % (11.5-14.5); RDW Standard Deviation 47.4 fL (36.4-46.3); Red Blood Count 4.22 M/uL (4.20-5.40); White Blood Count 6.94 K/ul (4.8-10.8)
[2023-12-13] MEDS: LEVOTHYROXINE SODIUM 75 MCG TABLET PO SCH (06:06)
[2023-12-13] MEDS: metroNIDAZOLE 500 MG TAB PO SCH ×3 (06:06→21:29)
[2023-12-13 06:17] LABS: BUN Creatinine Ratio 30.9 (10-20); Calcium 8.4 mg/dl (8.6-10.3); Creatinine Clr Calc Pharmacy 81.3 ml/min; Est GFR (African American) 68.3 ml/min; Est GFR (Non-African American) 58.9 ml/min; Magnesium 1.9 mg/dl (1.7-2.4)
[2023-12-13] MEDS: ACETAMINOPHEN 325 MG TAB PO PRN ×2 (07:44→18:31)
[2023-12-13] MEDS: CIPROFLOXACIN 500 MG TAB PO SCH ×2 (07:46→21:29)
[2023-12-13] MEDS: APIXABAN 5 MG TABLET PO SCH ×2 (07:48→21:29)
[2023-12-13] MEDS: METOPROLOL TARTRATE 25 MG TAB PO SCH ×2 (07:49→21:28)
[2023-12-13] MEDS: NYSTATIN CR 15 GM TUBE EXT SCH ×3 (07:51→21:29)
--- NOTE | 2023-12-13 07:52 | Hospitalist Progress Note ---
Date of Service December 13, 2023 Assessment & Plan (1) Pulmonary embolism, bilateral: Plan: Progressive acute shortness of breath/RIOS x 2-3 months with increased LE edema/swelling in patient w/ hx PE ~10 years ago/underwent tx w/ oral AC without reported hx major bleeding/rx to heparin in the past Bilateral PE due to right popliteal DVT +/- right saphenous vein SVT. Possible acute on chronic exacerbation of CHF (HFpEF) Venous doppler obtained due to R leg swelling, impression w/ Occlusive thrombus within the right popliteal vein and adjacent lesser saphenous vein CTA chest with extensive bilateral pulmonary emboli, cardiomegaly with evidence of pulmonary artery hypertension. Cirrhotic liver morphology (also notes calcified lesion thoracic spine as below) ECHO w/ EF 50-55%, no wma. Does note grade I diastolic dysfunction. IVC mildly dilated (see diuretics below) Started metoprolol tartrate 12.5mg BID -consider advancing GDMT but BP stable/HR stable and will continue this for now Heparin gtt transitioned to Eliquis AM 12/09 for 10mg BID x 7 days through PM 12/15 and then 5mg BID starting AM 12/16.$47 on rivas check Tolerating without bleeding/issue, on room air. No SOB/CP reported PT/OT consulted - awaiting placement for rehab, [facility] when bed available -CM following. (2) DVT of leg (deep venous thrombosis): Plan: noted on US as above, heparin --> Eliquis and will be continued at d/c (3) CHF (congestive heart failure): Plan: BNP 658 w/ imaging w/ evidence for pulmonary edema/volume overload as well as dilated IVC on ECHO EF 50-55% On torsemide "prn" for hx cirrhosis. Given 20mg IV lasix in ER w/ good diuresis and was to be continued but not ordered. Resumed her torsemide but made DAILY 12/09 given suspected need w/ hx cirrhosis and more frequent dosing Na improved/stabilized on repeat and placed torsemide on HOLD 12/12 for BUN/Cr 33/1.17 Net negative 5.3L since admission Parra removed, purewick can be utilized AHA diet, 1800ml/day restriction Monitor weights, I&O Na 138, LE edema stable and BUN/Cr 29/0.94 and will hold for today given weights down -->consider dosing for tomorrow/2-3x a week scheduled pending repeat evals BNP/BMP in AM (4) RIOS (dyspnea on exertion): Plan: 2nd to bilateral PEs as above as well as some component of CHF exacerbation given b/l LE edema worse on admission per patient/daughter w/ improvement/response to lasix on admission w/ elevated BNP and chest imaging w/ overload (5) Bilateral lower extremity edema: Plan: 2nd to DVT as well as suspected volume overload. R>LLE swelling, doppler as above. Heparin --> eliquis for today, checking rivas s/p 20mg IV lasix in ER, BNP 658 on admission Torsemide resumed 12/09 but DAILY SCHEDULED as above, BNP/LE edema improved and breathing stable. Had been taking "as needed" however suspect q2d vs daily dosing required to maintain euvolemia at home/discharge Monitor (6) Hypothyroidism: Plan: Continue levothyroxine 225mcg daily. TSH wnl on check (7) Ileostomy in place: Plan: Ileostomy is functioning at baseline per patient . Changed AM 12/10 by nursing, daughter to bring in some supplies from home Does have signs of fungal infection on the skin under the ostomy bag and nystatin ordered. Stable on repeat exam and improved. Also resumed home abx as below (checking cdiff given increased output since resuming abx/changed ostomy 2-3 times 12/12) (8) Lightheadedness: Plan: Likely due to orthostasis as symptoms occur while standing and are relieved at rest however suspect 2nd to extensive PEs as above, also some volume overload and diuresis as outlined No arrhythmia on monitor, occasional PVCs Fall precautions, PT/OT evals No symptoms of such reported 12/12 w/ continued diuretics through day prior. BP stable 112/72 and torsemide on hold as above. Remains on metoprolol BID which was started while inpatient for above (9) Elevated troponin: Plan: Initial high sen trop elevated at 21 with 2 hour repeat down to 20 Patient denies chest pain, no acute ST segment or T-wave changes on ECG . Suspect elevation 2nd to demand ischemia from volume overload but also PE as above No CP reported. NSR on monitor w/ PACs (10) Cirrhosis: Plan: Per review of previous [facility] notes the patient is followed outpatient by Dr. Bonilla but has not had a formal outpatient evaluation. LFTs wnl on admission, INR 1.0 US abd s/p IV diuretics in ER w/o abdominal ascites for tap, diuretics as outlined above Outpt f/u with [facility] at discharge Heart healthy diet, 1800mL fluid restriction added -will need additional counseling at discharge Torsemide to scheduled daily as above, now on hold but will monitor for more frequent dosing (suspect needing to be taking 2-3x/week at baseline at least for now, but also has been on fluid restriction inpatient which has been helping) No evidence for decompensated HF at present time. (11) Diabetes mellitus, type 2: Plan: Hold metformin while inpatient and utilizing SSI while inpatient. 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 Bonilla and reportedly was on Cipro/Flagyl on admission and reported improvement while on abx - No abx ordered, will need to verify w/ patient/reordered if needed --> ORDERED CIPRO 500mg BID, FLAGYL 500mg TID (based on prior rx fill, month supply) on 12/09 and continued Reported improvement on exam/changing ostomy 12/10 Continue abx as outlined, outpatient f/u [facility] (13) Abnormal finding on imaging: Plan: On CTA of chest, report noting a 4.6 cm calcified extra-axial lesion in the left aspect of the thoracic spinal canal at T6-T7. This severely effaces the thecal sac, and could represent iatrogenic change or possibly a calcified extra-axial mass lesion such as a meningioma or nerve sheath tumor. Clinical correlation will be required. This is not an acute finding and and should be correlated with any prior outside chest imaging. Nonemergent follow up with neurology is advised. Plan continued inpatient stay, CM following and denied [facility] and sent referral to [facility] and patient able to dc once bed available/insurance auth obtained Admission and Anticipated Discharge Date Admission Date: December 07, 2023 Supervising Physician Co-Signing Physician Notes The patient was not seen by me. The chart was reviewed. Case discussed with KINDRA Wilkinson. Agree with assessment and plan Subjective Seen this morning, resting in bed.. Had ostomy changed twice yesterday, no abdominal pain. No fever/chills, chest pain, shortness of breath. Poor sleep, discussed Vistaril to be made available as needed. Physical Exam 2 Physical Exam: 78yo morbidly obese female up in bed, NA D, appears improved/stable, fatigued appearing/reporting didn't get good sleep head atraumatic, +thick neck, trachea midline resp: improvement in entry to bases, no significant w/c/r, on room air 93% CV: rrr, +systolic murmur, b/l LE edema much improved . (R>L 2nd to DVT), calves nontender gi: +BS throughout, ostomy present, bag full/liquid/semi formed stool, nontender gu: no further parra, purewick in place msk/neuro; nonfocal but generalized weakness, no slurred speech/facial droop psych: aox3, cooperative with exam Results & Data Results & Data Vital Signs (Past 12 Hours) Vital Signs Temp Pulse Pulse Resp BP BP Pulse Ox 12/13/23 07:43 36.6 C 71 20 109/71 93 12/13/23 07:31 69 12/13/23 04:15 36.6 C 70 18 115/73 92 12/12/23 23:55 37.0 C 77 18 100/59 L 90 12/12/23 22:37 75 12/12/23 20:18 37.4 C 77 18 105/58 L 91 O2 Del Method 12/13/23 07:43 Room Air 12/13/23 07:31 12/13/23 04:15 Room Air 12/12/23 23:55 Room Air 12/12/23 22:37 12/12/23 20:18 Room Air Laboratory Results 12/13/23 05:35 12/13/23 05:35 PG Care Time/CCT Total # of Minutes Spent Total Time Spent with Patient: Total time spent is greater than 50% in coordination of care (as documented) at patient's floor/unit and/or counseling patient: Coding Level of Care Code 97951 SUB INP/OBS CARE 3/50MIN Diagnoses Pulmonary embolism, bilateral I26.99 DVT of leg (deep venous thrombosis) I82.409 CHF (congestive heart failure) I50.9 Heart failure chronicity: acute Heart failure type: unspecified RIOS (dyspnea on exertion) R06.09 Bilateral lower extremity edema R60.0 Hypothyroidism E03.[address] Z93.2 Lightheadedness R42 Elevated troponin R79.89 Cirrhosis K74.60 Diabetes mellitus, type 2 E11.9 Abdominal fistula K63.2 Abnormal finding on imaging R93.89 (3) CHF (congestive heart failure) Heart failure chronicity: acute Heart failure type: unspecified Qualified Code(s): I50.9 - Heart failure, unspecified
[2023-12-13] MEDS: INSULIN ASPART PER UNIT CHARGE SC SCH ×3 (08:49→17:36)
[2023-12-13] MEDS: MELATONIN 3 MG TAB PO PRN (21:29)
[2023-12-14] MEDS: INSULIN ASPART PER UNIT CHARGE SC SCH ×5 (02:58→21:23)
[2023-12-14] MEDS: LEVOTHYROXINE SODIUM 75 MCG TABLET PO SCH (06:26)
[2023-12-14] MEDS: metroNIDAZOLE 500 MG TAB PO SCH ×3 (06:26→21:23)
[2023-12-14 07:30] LABS: BUN Creatinine Ratio 28.7 (10-20); Calcium 8.4 mg/dl (8.6-10.3); Creatinine Clr Calc Pharmacy 81.3 ml/min; Est GFR (African American) 68.3 ml/min; Est GFR (Non-African American) 58.9 ml/min; Potassium 4.4 mmol/L (3.5-5.1)
--- NOTE | 2023-12-14 07:37 | Hospitalist Progress Note ---
Date of Service December 14, 2023 Assessment & Plan (1) Pulmonary embolism, bilateral: Plan: Progressive acute shortness of breath/RIOS x 2-3 months with increased LE edema/swelling in patient w/ hx PE ~10 years ago/underwent tx w/ oral AC without reported hx major bleeding/rx to heparin in the past Bilateral PE due to right popliteal DVT +/- right saphenous vein SVT. Possible acute on chronic exacerbation of CHF (HFpEF) Venous doppler obtained due to R leg swelling, impression w/ Occlusive thrombus within the right popliteal vein and adjacent lesser saphenous vein CTA chest with extensive bilateral pulmonary emboli, cardiomegaly with evidence of pulmonary artery hypertension. Cirrhotic liver morphology (also notes calcified lesion thoracic spine as below) ECHO w/ EF 50-55%, no wma. Does note grade I diastolic dysfunction. IVC mildly dilated (see diuretics below) Started metoprolol tartrate 12.5mg BID -consider advancing GDMT but BP stable/HR stable and will continue this for now Heparin gtt--> Eliquis 10mg BID 12/09 and will need to transition to 5mg BID AM 12/16 (ordered already as such, rivas checked by CM $47) No bleeding, no CP/SOB reported PT/OT consulted - awaiting placement for rehab, [facility] when bed available -CM following - asked for update on insurance auth today. ? if closed w/ holiday, hopefully dc Thursday. Daughter updated by phone (2) DVT of leg (deep venous thrombosis): Plan: noted on US as above, heparin --> Eliquis and will be continued at d/c (3) CHF (congestive heart failure): Plan: BNP 658 w/ imaging w/ evidence for pulmonary edema/volume overload as well as dilated IVC on ECHO EF 50-55% On torsemide "prn" for hx cirrhosis. Given 20mg IV lasix in ER w/ good diuresis and was to be continued but not ordered. Torsemide made DAILY 12/09 given suspected need w/ hx cirrhosis and more frequent dosing Net negative 4.1L since admission (prior 5.3L, did have unmeasured voids) Wt unchanged from 12/13 and BNP improved to 380. BUN/Cr 27/.94 and will resume torsemide 10mg for tomorrow given slight increase in edema/91% on RA --> Consider 2-3x/week dosing at discharge vs monitoring weights rather than "prn LE edema" given cirrhosis and likely some abdominal fluid as well (not enough to tap on US abd) AHA diet, 1800mL fluid restriction Monitor weight, I&Os BMP in AM (4) RIOS (dyspnea on exertion): Plan: 2nd to bilateral PEs as above as well as some component of CHF exacerbation given b/l LE edema worse on admission per patient/daughter w/ improvement/response to lasix on admission w/ elevated BNP and chest imaging w/ overload (5) Bilateral lower extremity edema: Plan: 2nd to DVT as well as suspected volume overload. R>LLE swelling, doppler as above. Heparin --> eliquis for today, checking rivas s/p 20mg IV lasix in ER, BNP 658 on admission Torsemide dosing as above, resumed for AM 12/14 and will monitor for frequency of dosing at dc but suspect 2-3x/week dosing to maintain euvolemia (6) Hypothyroidism: Plan: Continue levothyroxine 225mcg daily. TSH wnl on check (7) Ileostomy in place: Plan: Ileostomy is functioning at baseline per patient . Changed AM 12/10 by nursing, daughter to bring in some supplies from home Does have signs of fungal infection on the skin under the ostomy bag and nystatin ordered. Stable on repeat exam and improved. Also resumed home abx as below (checking cdiff given increased output since resuming abx/changed ostomy 2-3 times 12/13 but no significant output now and had not been collected but can monitor given abx use) Fungal appearance much improved (8) Lightheadedness: Plan: Likely due to orthostasis as symptoms occur while standing and are relieved at rest however suspect 2nd to extensive PEs as above, also some volume overload and diuresis as outlined No arrhythmia on monitor, occasional PVCs Fall precautions, PT/OT evals No symptoms of such reported at present Monitor on metoprolol/torsemide as above (9) Elevated troponin: Plan: Initial high sen trop elevated at 21 with 2 hour repeat down to 20 Patient denies chest pain, no acute ST segment or T-wave changes on ECG . Suspect elevation 2nd to demand ischemia from volume overload but also PE as above No CP reported. NSR on monitor w/ PACs will downgrade off telemetry 12/14 (10) Cirrhosis: Plan: Per review of previous [facility] notes the patient is followed outpatient by Dr. Bonilla but has not had a formal outpatient evaluation. LFTs wnl on admission, INR 1.0 US abd s/p IV diuretics in ER w/o abdominal ascites for tap, diuretics as outlined above Outpt f/u with [facility] at discharge Heart healthy diet, 1800mL fluid restriction added -will need additional counseling at discharge Torsemide to scheduled daily as above, on hold given rise in BUN/Cr but suspect needing more frequent dosing and resumed for AM 12/14 as above to maintain euvolemia No evidence for decompensated cirrhosis at present time. (11) Diabetes mellitus, type 2: Plan: Hold metformin while inpatient and utilizing SSI while inpatient. 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 Bonilla and reportedly was on Cipro/Flagyl on admission and reported improvement while on abx - No abx ordered, will need to verify w/ patient/reordered if needed --> ORDERED CIPRO 500mg BID, FLAGYL 500mg TID (based on prior rx fill, month supply) on 12/09 and continued Reported improvement on exam/changing ostomy 12/10, 12/12 Continue abx as outlined, outpatient f/u [facility] (13) Abnormal finding on imaging: Plan: On CTA of chest, report noting a 4.6 cm calcified extra-axial lesion in the left aspect of the thoracic spinal canal at T6-T7. This severely effaces the thecal sac, and could represent iatrogenic change or possibly a calcified extra-axial mass lesion such as a meningioma or nerve sheath tumor. Clinical correlation will be required. This is not an acute finding and and should be correlated with any prior outside chest imaging. Nonemergent follow up with neurology is advised. Plan continued inpatient stay, [facility]/insurance auth received. CM to follow - messaged today for update on insurance auth. Updated daughter by phone AM 12/14 regarding plan Admission and Anticipated Discharge Date Admission Date: December 07, 2023 Subjective eval this morning, sitting up in bed on phone with daughter (I updated regarding plan by phone per patient request). No CP/SOB, tolerating eliquis/no bleeding. On room air. Slept a little better last evening. CM following, will follow up on insurance auth for [facility], hopeful dc tomorrow. Questions/concerns addressed at this time. Physical Exam 2 Physical Exam: 78yo morbidly obese female up in bed, NA D, appears improved/stable, got some better sleep last evening head atraumatic, +thick neck, trachea midline resp: improvement in entry to bases, no significant w/c/r, on room air 93% CV: rrr, +systolic murmur, b/l LE edema much improved . (R>L 2nd to DVT), calves nontender gi: +BS throughout, ostomy present, bag full/liquid/semi formed stool, nontender gu: no parra msk/neuro; nonfocal but generalized weakness, no slurred speech/facial droop psych: aox3, cooperative with exam Results & Data Results & Data Vital Signs (Past 12 Hours) Vital Signs Temp Pulse Pulse Resp BP BP Pulse Ox 12/14/23 03:39 36.7 C 62 18 110/68 93 12/13/23 23:44 36.7 C 73 16 105/67 91 12/13/23 22:00 73 12/13/23 20:04 36.4 C L 110 H 18 113/71 92 12/13/23 19:54 O2 Del Method 12/14/23 03:39 Room Air 12/13/23 23:44 Room Air 12/13/23 22:00 12/13/23 20:04 Room Air 12/13/23 19:54 Room Air Laboratory Results 12/13/23 05:35 12/14/23 06:51 BNP 380 PG Care Time/CCT Total # of Minutes Spent Total Time Spent with Patient: Total time spent is greater than 50% in coordination of care (as documented) at patient's floor/unit and/or counseling patient: Coding Level of Care Code 66413 SUB INP/OBS CARE 2/35MIN Diagnoses Pulmonary embolism, bilateral I26.99 DVT of leg (deep venous thrombosis) I82.409 CHF (congestive heart failure) I50.9 Heart failure chronicity: acute Heart failure type: unspecified RIOS (dyspnea on exertion) R06.09 Bilateral lower extremity edema R60.0 Hypothyroidism E03.[address] Z93.2 Lightheadedness R42 Elevated troponin R79.89 Cirrhosis K74.60 Diabetes mellitus, type 2 E11.9 Abdominal fistula K63.2 Abnormal finding on imaging R93.89 (3) CHF (congestive heart failure) Heart failure chronicity: acute Heart failure type: unspecified Qualified Code(s): I50.9 - Heart failure, unspecified
[2023-12-14] MEDS: METOPROLOL TARTRATE 25 MG TAB PO SCH ×2 (08:29→21:22)
[2023-12-14] MEDS: CIPROFLOXACIN 500 MG TAB PO SCH ×2 (08:30→21:23)
[2023-12-14] MEDS: NYSTATIN CR 15 GM TUBE EXT SCH ×3 (08:30→21:25)
[2023-12-14] MEDS: APIXABAN 5 MG TABLET PO SCH ×2 (08:30→21:22)
[2023-12-14] MEDS: ACETAMINOPHEN 325 MG TAB PO PRN ×2 (12:55→21:23)
[2023-12-14] MEDS: oxyCODONE HCL IR 5 MG TAB (IMMEDIATE RELEASE) PO PRN (14:29)
[2023-12-14] MEDS: MELATONIN 3 MG TAB PO PRN (21:24)
[2023-12-15] MEDS: ACETAMINOPHEN 325 MG TAB PO PRN ×2 (02:39→21:41)
[2023-12-15] MEDS: metroNIDAZOLE 500 MG TAB PO SCH ×3 (05:39→21:41)
[2023-12-15] MEDS: LEVOTHYROXINE SODIUM 75 MCG TABLET PO SCH (05:39)
[2023-12-15] MEDS: INSULIN ASPART PER UNIT CHARGE SC SCH ×4 (08:49→21:44)
[2023-12-15 08:51] LABS: BUN Creatinine Ratio 31.4 (10-20); Calcium 8.6 mg/dl (8.6-10.3); Creatinine Clr Calc Pharmacy 88.9 ml/min; Est GFR (African American) 76.1 ml/min; Est GFR (Non-African American) 65.6 ml/min; Potassium 4.4 mmol/L (3.5-5.1)
[2023-12-15] MEDS: NYSTATIN CR 15 GM TUBE EXT SCH ×3 (08:53→21:42)
[2023-12-15] MEDS: CIPROFLOXACIN 500 MG TAB PO SCH ×2 (08:54→21:43)
[2023-12-15] MEDS: APIXABAN 5 MG TABLET PO SCH ×2 (08:54→21:43)
[2023-12-15] MEDS: TORSEMIDE 10 MG TAB PO SCH (08:56)
[2023-12-15] MEDS: METOPROLOL TARTRATE 25 MG TAB PO SCH ×2 (10:55→21:42)
--- NOTE | 2023-12-15 21:22 | Hospitalist Progress Note ---
Date of Service December 15, 2023 Assessment & Plan (1) Pulmonary embolism, bilateral: Plan: Progressive acute shortness of breath/RIOS x 2-3 months with increased LE edema/swelling in patient w/ hx PE ~10 years ago/underwent tx w/ oral AC without reported hx major bleeding/rx to heparin in the past Bilateral PE due to right popliteal DVT +/- right saphenous vein SVT. Possible acute on chronic exacerbation of CHF (HFpEF) Venous doppler obtained due to R leg swelling, impression w/ Occlusive thrombus within the right popliteal vein and adjacent lesser saphenous vein CTA chest with extensive bilateral pulmonary emboli, cardiomegaly with evidence of pulmonary artery hypertension. Cirrhotic liver morphology (also notes calcified lesion thoracic spine as below) ECHO w/ EF 50-55%, no wma. Does note grade I diastolic dysfunction. IVC mildly dilated (see diuretics below) Started metoprolol tartrate 12.5mg BID -consider advancing GDMT but BP stable/HR stable and will continue this for now Heparin gtt--> Eliquis 10mg BID 12/09 and will need to transition to 5mg BID AM 12/16 (ordered already as such, rivas checked by CM $47) No bleeding, no CP/SOB reported PT/OT consulted - awaiting placement for rehab, [facility] when bed available -CM following - asked for update on insurance auth today. ? if closed w/ holiday, hopefully dc Thursday. (2) DVT of leg (deep venous thrombosis): Plan: noted on US as above, heparin --> Eliquis and will be continued at d/c (3) CHF (congestive heart failure): Plan: BNP 658 w/ imaging w/ evidence for pulmonary edema/volume overload as well as dilated IVC on ECHO EF 50-55% On torsemide "prn" for hx cirrhosis. Given 20mg IV lasix in ER w/ good diuresis and was to be continued but not ordered. Torsemide made DAILY 12/09 given suspected need w/ hx cirrhosis and more frequent dosing Net negative 4.1L since admission (prior 5.3L, did have unmeasured voids) Wt unchanged from 12/13 and BNP improved to 380. BUN/Cr 27/.94 and will resume torsemide 10mg for tomorrow given slight increase in edema/91% on RA --> Consider 2-3x/week dosing at discharge vs monitoring weights rather than "prn LE edema" given cirrhosis and likely some abdominal fluid as well (not enough to tap on US abd) AHA diet, 1800mL fluid restriction (4) RIOS (dyspnea on exertion): Plan: 2nd to bilateral PEs as above as well as some component of CHF exacerbation given b/l LE edema worse on admission per patient/daughter w/ improvement/response to lasix on admission w/ elevated BNP and chest imaging w/ overload (5) Bilateral lower extremity edema: Plan: 2nd to DVT as well as suspected volume overload. R>LLE swelling, doppler as above. Heparin --> eliquis for today, checking rivas s/p 20mg IV lasix in ER, BNP 658 on admission Torsemide dosing as above, resumed for AM 12/14 and will monitor for frequency of dosing at dc but suspect 2-3x/week dosing to maintain euvolemia (6) Hypothyroidism: Plan: Continue levothyroxine 225mcg daily. TSH wnl on check (7) Ileostomy in place: Plan: Ileostomy is functioning at baseline per patient . Changed AM 12/10 by nursing, daughter to bring in some supplies from home Does have signs of fungal infection on the skin under the ostomy bag and nystatin ordered. Stable on repeat exam and improved. Also resumed home abx as below (checking cdiff given increased output since resuming abx/changed ostomy 2-3 times 12/13 but no significant output now and had not been collected but can monitor given abx use) Fungal appearance much improved (8) Lightheadedness: Plan: Likely due to orthostasis as symptoms occur while standing and are relieved at rest however suspect 2nd to extensive PEs as above, also some volume overload and diuresis as outlined No arrhythmia on monitor, occasional PVCs Fall precautions, PT/OT evals No symptoms of such reported at present Monitor on metoprolol/torsemide as above (9) Elevated troponin: Plan: Initial high sen trop elevated at 21 with 2 hour repeat down to 20 Patient denies chest pain, no acute ST segment or T-wave changes on ECG . Suspect elevation 2nd to demand ischemia from volume overload but also PE as above No CP reported. NSR on monitor w/ PACs will downgrade off telemetry 12/14 (10) Cirrhosis: Plan: Per review of previous [facility] notes the patient is followed outpatient by Dr. Bonilla but has not had a formal outpatient evaluation. LFTs wnl on admission, INR 1.0 US abd s/p IV diuretics in ER w/o abdominal ascites for tap, diuretics as outlined above Outpt f/u with [facility] at discharge Heart healthy diet, 1800mL fluid restriction added -will need additional counseling at discharge Torsemide to scheduled daily as above, on hold given rise in BUN/Cr but suspect needing more frequent dosing and resumed for AM 12/14 as above to maintain euvolemia No evidence for decompensated cirrhosis at present time. (11) Diabetes mellitus, type 2: Plan: Hold metformin while inpatient and utilizing SSI while inpatient. 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 Bonilla and reportedly was on Cipro/Flagyl on admission and reported improvement while on abx - No abx ordered, will need to verify w/ patient/reordered if needed --> ORDERED CIPRO 500mg BID, FLAGYL 500mg TID (based on prior rx fill, month supply) on 12/09 and continued Reported improvement on exam/changing ostomy 12/10, 12/12 Continue abx as outlined, outpatient f/u [facility] (13) Abnormal finding on imaging: Plan: On CTA of chest, report noting a 4.6 cm calcified extra-axial lesion in the left aspect of the thoracic spinal canal at T6-T7. This severely effaces the thecal sac, and could represent iatrogenic change or possibly a calcified extra-axial mass lesion such as a meningioma or nerve sheath tumor. Clinical correlation will be required. This is not an acute finding and and should be correlated with any prior outside chest imaging. Nonemergent follow up with neurology is advised. Plan continued inpatient stay, [facility] when [facility]/insurance auth received. CM to follow - messaged today for update on insurance auth. Updated daughter by phone AM 12/14 regarding plan Admission and Anticipated Discharge Date Admission Date: December 07, 2023 Subjective Patient reports no new symptoms. Review of Systems Review of Systems: All systems reviewed & are unremarkable except as noted in HPI & below Physical Exam Physical Exam: 78yo morbidly obese female up in bed, NA D, appears improved/stable, head atraumatic, +thick neck, trachea midline resp: improvement in entry to bases, no significant w/c/r, on room air 93% CV: rrr, +systolic murmur psych: aox3, cooperative with exam Results & Data Results & Data Vital Signs (Past 12 Hours) Vital Signs Temp Pulse Resp BP BP Pulse Ox O2 Del Method 12/15/23 20:48 36.7 C 69 18 103/67 95 Room Air 12/15/23 15:24 36.2 C L 70 16 141/81 H 94 Room Air 12/15/23 10:54 36.4 C L 67 15 122/77 93 Room Air PG Care Time/CCT Total # of Minutes Spent Total Time Spent with Patient: Total time spent is greater than 50% in coordination of care (as documented) at patient's floor/unit and/or counseling patient: Coding Level of Care Code 18617 SUB INP/OBS CARE 2/35MIN Diagnoses Pulmonary embolism, bilateral I26.99 DVT of leg (deep venous thrombosis) I82.409 CHF (congestive heart failure) I50.9 Heart failure chronicity: acute Heart failure type: unspecified RIOS (dyspnea on exertion) R06.09 Bilateral lower extremity edema R60.0 Hypothyroidism E03.[address] Z93.2 Lightheadedness R42 Elevated troponin R79.89 Cirrhosis K74.60 Diabetes mellitus, type 2 E11.9 Abdominal fistula K63.2 Abnormal finding on imaging R93.89 (3) CHF (congestive heart failure) Heart failure chronicity: acute Heart failure type: unspecified Qualified Code(s): I50.9 - Heart failure, unspecified
[2023-12-15] MEDS: MELATONIN 3 MG TAB PO PRN (21:41)
[2023-12-16] MEDS: hydrOXYzine HCl 10 MG TAB PO PRN ×2 (00:49→21:00)
[2023-12-16] MEDS: oxyCODONE HCL IR 5 MG TAB (IMMEDIATE RELEASE) PO PRN (00:49)
[2023-12-16] MEDS: LEVOTHYROXINE SODIUM 75 MCG TABLET PO SCH (06:11)
[2023-12-16] MEDS: metroNIDAZOLE 500 MG TAB PO SCH ×3 (06:11→21:00)
[2023-12-16] MEDS: TORSEMIDE 10 MG TAB PO SCH (08:17)
[2023-12-16] MEDS: METOPROLOL TARTRATE 25 MG TAB PO SCH ×2 (08:17→20:59)
[2023-12-16] MEDS: APIXABAN 5 MG TABLET PO SCH ×2 (08:17→21:00)
[2023-12-16] MEDS: CIPROFLOXACIN 500 MG TAB PO SCH ×2 (08:17→21:01)
[2023-12-16] MEDS: NYSTATIN CR 15 GM TUBE EXT SCH ×3 (08:18→20:59)
[2023-12-16] MEDS: INSULIN ASPART PER UNIT CHARGE SC SCH ×4 (08:53→20:54)
[2023-12-16] MEDS: ACETAMINOPHEN 325 MG TAB PO PRN (21:03)
--- NOTE | 2023-12-16 22:33 | Hospitalist Progress Note ---
Date of Service December 16, 2023 Assessment & Plan (1) Pulmonary embolism, bilateral: Plan: Progressive acute shortness of breath/RIOS x 2-3 months with increased LE edema/swelling in patient w/ hx PE ~10 years ago/underwent tx w/ oral AC without reported hx major bleeding/rx to heparin in the past Bilateral PE due to right popliteal DVT +/- right saphenous vein SVT. Possible acute on chronic exacerbation of CHF (HFpEF) Venous doppler obtained due to R leg swelling, impression w/ Occlusive thrombus within the right popliteal vein and adjacent lesser saphenous vein CTA chest with extensive bilateral pulmonary emboli, cardiomegaly with evidence of pulmonary artery hypertension. Cirrhotic liver morphology (also notes calcified lesion thoracic spine as below) ECHO w/ EF 50-55%, no wma. Does note grade I diastolic dysfunction. IVC mildly dilated (see diuretics below) Started metoprolol tartrate 12.5mg BID -consider advancing GDMT but BP stable/HR stable and will continue this for now Heparin gtt--> Eliquis 10mg BID 12/09 and will need to transition to 5mg BID AM 12/16 (ordered already as such, rivas checked by CM $47) No bleeding, no CP/SOB reported PT/OT consulted - awaiting placement for rehab, [facility] when bed available -CM following - asked for update on insurance auth today. ? if closed w/ holiday, hopefully dc Thursday. (2) Urge incontinence: Plan: Added Vibegron. First dose will be 12/17 told nurse to monitor post void urinary volume with a bladder scan. She may also benefit from Kegel exercises and strengthening her pelvic floor. WIll try medications first. (3) DVT of leg (deep venous thrombosis): Plan: noted on US as above, heparin --> Eliquis and will be continued at d/c (4) CHF (congestive heart failure): Plan: BNP 658 w/ imaging w/ evidence for pulmonary edema/volume overload as well as dilated IVC on ECHO EF 50-55% On torsemide "prn" for hx cirrhosis. Given 20mg IV lasix in ER w/ good diuresis and was to be continued but not ordered. Torsemide made DAILY 12/09 given suspected need w/ hx cirrhosis and more frequent dosing Net negative 4.1L since admission (prior 5.3L, did have unmeasured voids) Wt unchanged from 1/14 and BNP improved to 380. BUN/Cr 27/.94 and will resume torsemide 10mg for tomorrow given slight increase in edema/91% on RA --> Consider 2-3x/week dosing at discharge vs monitoring weights rather than "prn LE edema" given cirrhosis and likely some abdominal fluid as well (not enough to tap on US abd) AHA diet, 1800mL fluid restriction (5) RIOS (dyspnea on exertion): Plan: 2nd to bilateral PEs as above as well as some component of CHF exacerbation given b/l LE edema worse on admission per patient/daughter w/ improvement/response to lasix on admission w/ elevated BNP and chest imaging w/ overload (6) Bilateral lower extremity edema: Plan: 2nd to DVT as well as suspected volume overload. R>LLE swelling, doppler as above. Heparin --> eliquis for today, checking rivas s/p 20mg IV lasix in ER, BNP 658 on admission Torsemide dosing as above, resumed for AM 12/14 and will monitor for frequency of dosing at dc but suspect 2-3x/week dosing to maintain euvolemia (7) Hypothyroidism: Plan: Continue levothyroxine 225mcg daily. TSH wnl on check (8) Ileostomy in place: Plan: Ileostomy is functioning at baseline per patient . Changed AM 12/10 by nursing, daughter to bring in some supplies from home Does have signs of fungal infection on the skin under the ostomy bag and nystatin ordered. Stable on repeat exam and improved. Also resumed home abx as below (checking cdiff given increased output since resuming abx/changed ostomy 2-3 times 12/13 but no significant output now and had not been collected but can monitor given abx use) Fungal appearance much improved (9) Lightheadedness: Plan: Likely due to orthostasis as symptoms occur while standing and are relieved at rest however suspect 2nd to extensive PEs as above, also some volume overload and diuresis as outlined No arrhythmia on monitor, occasional PVCs Fall precautions, PT/OT evals No symptoms of such reported at present Monitor on metoprolol/torsemide as above (10) Elevated troponin: Plan: Initial high sen trop elevated at 21 with 2 hour repeat down to 20 Patient denies chest pain, no acute ST segment or T-wave changes on ECG . Suspect elevation 2nd to demand ischemia from volume overload but also PE as above No CP reported. NSR on monitor w/ PACs will downgrade off telemetry 12/14 (11) Cirrhosis: Plan: Per review of previous [facility] notes the patient is followed outpatient by Dr. Bonilla but has not had a formal outpatient evaluation. LFTs wnl on admission, INR 1.0 US abd s/p IV diuretics in ER w/o abdominal ascites for tap, diuretics as outlined above Outpt f/u with [facility] at discharge Heart healthy diet, 1800mL fluid restriction added -will need additional counseling at discharge Torsemide to scheduled daily as above, on hold given rise in BUN/Cr but suspect needing more frequent dosing and resumed for AM 12/14 as above to maintain euvolemia No evidence for decompensated cirrhosis at present time. (12) Diabetes mellitus, type 2: Plan: Hold metformin while inpatient and utilizing SSI while inpatient. 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 Bonilla and reportedly was on Cipro/Flagyl on admission and reported improvement while on abx - No abx ordered, will need to verify w/ patient/reordered if needed --> ORDERED CIPRO 500mg BID, FLAGYL 500mg TID (based on prior rx fill, month supply) on 12/09 and continued Reported improvement on exam/changing ostomy 12/10, 12/12 Continue abx as outlined, outpatient f/u [facility] (14) Abnormal finding on imaging: Plan: On CTA of chest, report noting a 4.6 cm calcified extra-axial lesion in the left aspect of the thoracic spinal canal at T6-T7. This severely effaces the thecal sac, and could represent iatrogenic change or possibly a calcified extra-axial mass lesion such as a meningioma or nerve sheath tumor. Clinical correlation will be required. This is not an acute finding and and should be correlated with any prior outside chest imaging. Nonemergent follow up with neurology is advised. Plan continued inpatient stay, [facility] when [facility]/insurance auth received. CM to follow - messaged today for update on insurance auth. Updated daughter by phone AM 12/14 regarding plan Admission and Anticipated Discharge Date Admission Date: December 07, 2023 Subjective Patient reports no new symptoms aside from her diffcituly in making it to the bathroom. SHe states she has the sensation to go and once she starts to move, she can not make it in time. Review of Systems Review of Systems: All systems reviewed & are unremarkable except as noted in HPI & below Physical Exam Physical Exam: 78yo morbidly obese female up in bed, NA D, appears improved/stable, head atraumatic, +thick neck, trachea midline resp: improvement in entry to bases, no significant w/c/r, on room air 93% CV: rrr, +systolic murmur psych: aox3, cooperative with exam Results & Data Results & Data Vital Signs (Past 12 Hours) Vital Signs Temp Pulse Resp BP Pulse Ox O2 Del Method 12/16/23 20:45 36.6 C 70 20 112/65 95 Room Air 12/16/23 15:29 36.3 C L 71 18 108/62 94 Room Air PG Care Time/CCT Total # of Minutes Spent Total Time Spent with Patient: Total time spent is greater than 50% in coordination of care (as documented) at patient's floor/unit and/or counseling patient: Coding Level of Care Code 56885 SUB INP/OBS CARE 2/35MIN Diagnoses Pulmonary embolism, bilateral I26.99 Urge incontinence N39.41 DVT of leg (deep venous thrombosis) I82.409 CHF (congestive heart failure) I50.9 Heart failure chronicity: acute Heart failure type: unspecified RIOS (dyspnea on exertion) R06.09 Bilateral lower extremity edema R60.0 Hypothyroidism E03.[address] Z93.2 Lightheadedness R42 Elevated troponin R79.89 Cirrhosis K74.60 Diabetes mellitus, type 2 E11.9 Abdominal fistula K63.2 Abnormal finding on imaging R93.89 (4) CHF (congestive heart failure) Heart failure chronicity: acute Heart failure type: unspecified Qualified Code(s): I50.9 - Heart failure, unspecified
[2023-12-17] MEDS: LEVOTHYROXINE SODIUM 75 MCG TABLET PO SCH (06:15)
[2023-12-17] MEDS: metroNIDAZOLE 500 MG TAB PO SCH ×3 (06:16→21:58)
[2023-12-17] MEDS: APIXABAN 5 MG TABLET PO SCH ×2 (09:04→20:06)
[2023-12-17] MEDS: NYSTATIN CR 15 GM TUBE EXT SCH ×3 (09:04→20:08)
[2023-12-17] MEDS: VIBEGRON 75 MG TAB PO SCH (09:04)
[2023-12-17] MEDS: CIPROFLOXACIN 500 MG TAB PO SCH ×2 (09:04→20:05)
[2023-12-17] MEDS: TORSEMIDE 10 MG TAB PO SCH (09:04)
[2023-12-17] MEDS: METOPROLOL TARTRATE 25 MG TAB PO SCH ×2 (09:05→20:05)
[2023-12-17] MEDS: INSULIN ASPART PER UNIT CHARGE SC SCH ×4 (09:07→20:06)
--- NOTE | 2023-12-17 09:28 | Hospitalist Progress Note ---
Date of Service December 17, 2023 Assessment & Plan (1) Pulmonary embolism, bilateral: Plan: Progressive acute shortness of breath/RIOS x 2-3 months with increased LE edema/swelling in patient w/ hx PE ~10 years ago/underwent tx w/ oral AC without reported hx major bleeding/rx to heparin in the past Bilateral PE due to right popliteal DVT +/- right saphenous vein SVT. Possible acute on chronic exacerbation of CHF (HFpEF) Venous doppler obtained due to R leg swelling, impression w/ Occlusive thrombus within the right popliteal vein and adjacent lesser saphenous vein CTA chest with extensive bilateral pulmonary emboli, cardiomegaly with evidence of pulmonary artery hypertension. Cirrhotic liver morphology (also notes calcified lesion thoracic spine as below) ECHO w/ EF 50-55%, no wma. Does note grade I diastolic dysfunction. IVC mildly dilated (see diuretics below) metoprolol tartrate 12.5mg BID -consider advancing GDMT but BP stable/HR stable and will continue this for now Heparin gtt--> Eliquis 10mg BID 12/09, transitioned to 5mg BID AM 12/16 (ordered already as such, rivas checked by CM $47) No bleeding, no CP/SOB reported PT/OT consulted - awaiting placement for rehab, [facility] when bed available -CM following - (2) Urge incontinence: Plan: Added Vibegron. First dose will be 12/17 check urine culture results pending (3) DVT of leg (deep venous thrombosis): Plan: noted on US as above, heparin --> Eliquis and will be continued at d/c (4) CHF (congestive heart failure): Plan: BNP 658 w/ imaging w/ evidence for pulmonary edema/volume overload as well as dilated IVC on ECHO EF 50-55% HFpEF On torsemide "prn" for hx cirrhosis. Given 20mg IV lasix in ER w/ good diuresis and was to be continued but not ordered. Torsemide made DAILY follow for renal function (5) Hypothyroidism: Plan: chronic and stable Continue levothyroxine 225mcg daily. TSH wnl on check (6) Ileostomy in place: Plan: Ileostomy is functioning at baseline per patient . Changed AM 12/10 by nursing, daughter to bring in some supplies from home Does have signs of fungal infection on the skin under the ostomy bag and nystatin ordered. Stable on repeat exam and improved. Also resumed home abx as below (checking cdiff given increased output since resuming abx/changed ostomy 2-3 times 12/13 but no significant output now and had not been collected but can monitor given abx use) Fungal appearance much improved (7) Elevated troponin: Plan: Initial high sen trop elevated at 21 with 2 hour repeat down to 20 Patient denies chest pain, no acute ST segment or T-wave changes on ECG . Suspect elevation 2nd to demand ischemia from volume overload but also PE as above No CP reported. NSR on monitor w/ PACs (8) Cirrhosis: Plan: Per review of previous [facility] notes the patient is followed outpatient by Dr. Bonilla but has not had a formal outpatient evaluation. LFTs wnl on admission, INR 1.0 US abd s/p IV diuretics in ER w/o abdominal ascites for tap, diuretics as outlined above Outpt f/u with [facility] at discharge Heart healthy diet, 1800mL fluid restriction added -will need additional counseling at discharge No evidence for decompensated cirrhosis at present time. (9) Diabetes mellitus, type 2: Plan: Hold metformin while inpatient and utilizing SSI while inpatient. A1c 6.5 BSGs acceptable and will monitor consider if metformin to be used with h/o liver disease (10) Abdominal fistula: Plan: Follows with [facility] Colorectal Surgery, Dr. Bonilla and reportedly was on Cipro/Flagyl on admission and reported improvement while on abx - No abx ordered, will need to verify w/ patient/reordered if needed --> ORDERED CIPRO 500mg BID, FLAGYL 500mg TID (based on prior rx fill, month supply) on 12/09 and continued Reported improvement on exam/changing ostomy 12/10, 12/12 Continue abx as outlined, outpatient f/u [facility] (11) Abnormal finding on imaging: Plan: On CTA of chest, report noting a 4.6 cm calcified extra-axial lesion in the left aspect of the thoracic spinal canal at T6-T7. This severely effaces the thecal sac, and could represent iatrogenic change or possibly a calcified extra-axial mass lesion such as a meningioma or nerve sheath tumor. Clinical correlation will be required. This is not an acute finding and and should be correlated with any prior outside chest imaging. Nonemergent follow up with neurology is advised. Plan continued inpatient stay, [facility] when [facility]/insurance auth received. CM to follow - Admission and Anticipated Discharge Date Admission Date: December 07, 2023 Subjective pt has no complaints or problems, feels swelling is improved but feels too weakened to go home. Physical Exam Physical Exam: cardiac exam is regular lungs diminished at bases, encouraged pt to get OOB and sit in chair legs have trace to 1+ edema Results & Data Results & Data Vital Signs (Past 12 Hours) Vital Signs Temp Pulse Resp BP Pulse Ox O2 Del Method 12/17/23 07:12 97.9 F 66 18 121/71 91 Room Air PG Care Time/CCT Total # of Minutes Spent Total Time Spent with Patient: Total time spent is greater than 50% in coordination of care (as documented) at patient's floor/unit and/or counseling patient: Coding Level of Care Code 84533 SUB INP/OBS CARE 2/35MIN Diagnoses Pulmonary embolism, bilateral I26.99 Urge incontinence N39.41 DVT of leg (deep venous thrombosis) I82.409 CHF (congestive heart failure) I50.9 Heart failure chronicity: acute Heart failure type: unspecified Hypothyroidism E03.[address] Z93.2 Elevated troponin R79.89 Cirrhosis K74.60 Diabetes mellitus, type 2 E11.9 Abdominal fistula K63.2 Abnormal finding on imaging R93.89 (4) CHF (congestive heart failure) Heart failure chronicity: acute Heart failure type: unspecified Qualified Code(s): I50.9 - Heart failure, unspecified
[2023-12-17] MEDS: ACETAMINOPHEN 325 MG TAB PO PRN (21:57)
[2023-12-17] MEDS: hydrOXYzine HCl 10 MG TAB PO PRN (21:58)
[2023-12-18] MEDS: ACETAMINOPHEN 325 MG TAB PO PRN ×2 (03:49→21:53)
[2023-12-18] MEDS: LEVOTHYROXINE SODIUM 75 MCG TABLET PO SCH (05:39)
[2023-12-18] MEDS: metroNIDAZOLE 500 MG TAB PO SCH ×3 (05:39→21:53)
[2023-12-18] MEDS: INSULIN ASPART PER UNIT CHARGE SC SCH ×4 (08:11→20:21)
[2023-12-18] MEDS: NYSTATIN CR 15 GM TUBE EXT SCH ×3 (08:52→20:22)
[2023-12-18] MEDS: METOPROLOL TARTRATE 25 MG TAB PO SCH ×2 (08:52→20:22)
[2023-12-18 08:53] LABS: Hematocrit (blood only) 39.6 % (37.0-47.0); Hemoglobin 12.6 g/dl (12.0-16.0); Mean Corpuscular Hemoglobin 28.7 pg (25.0-34.0); Mean Corpuscular Hgb Conc 31.8 g/dL (32.0-36.0); Mean Corpuscular Volume 90.2 fL (80.0-100.0); Mean Platelet Volume 10.2 fL (9.4-12.4); Platelet Count 310 K/uL (130-400); RDW Coefficient of Variation 14.7 % (11.5-14.5); RDW Standard Deviation 48.3 fL (36.4-46.3); Red Blood Count 4.39 M/uL (4.20-5.40); White Blood Count 6.18 K/ul (4.8-10.8)
[2023-12-18] MEDS: APIXABAN 5 MG TABLET PO SCH ×2 (08:53→20:22)
[2023-12-18] MEDS: VIBEGRON 75 MG TAB PO SCH (08:53)
[2023-12-18] MEDS: TORSEMIDE 10 MG TAB PO SCH (08:53)
[2023-12-18] MEDS: CIPROFLOXACIN 500 MG TAB PO SCH ×2 (08:53→20:21)
[2023-12-18 09:09] LABS: BUN Creatinine Ratio 28.8 (10-20); Calcium 8.3 mg/dl (8.6-10.3); Creatinine Clr Calc Pharmacy 73.5 ml/min; Est GFR (African American) 60.4 ml/min; Est GFR (Non-African American) 52.1 ml/min; Magnesium 1.8 mg/dl (1.7-2.4)
--- NOTE | 2023-12-18 14:32 | Hospitalist Progress Note ---
Date of Service December 18, 2023 Assessment & Plan (1) Pulmonary embolism, bilateral: Plan: Progressive acute shortness of breath/RIOS x 2-3 months with increased LE edema/swelling in patient w/ hx PE ~10 years ago/underwent tx w/ oral AC without reported hx major bleeding/rx to heparin in the past Bilateral PE due to right popliteal DVT +/- right saphenous vein SVT. Possible acute on chronic exacerbation of CHF (HFpEF) Venous doppler obtained due to R leg swelling, impression w/ Occlusive thrombus within the right popliteal vein and adjacent lesser saphenous vein CTA chest with extensive bilateral pulmonary emboli, cardiomegaly with evidence of pulmonary artery hypertension. Cirrhotic liver morphology (also notes calcified lesion thoracic spine as below) ECHO w/ EF 50-55%, no wma. Does note grade I diastolic dysfunction. IVC mildly dilated (see diuretics below) metoprolol tartrate 12.5mg BID -consider advancing GDMT but BP stable/HR stable and will continue this for now Heparin gtt--> Eliquis 10mg BID 12/09, transitioned to 5mg BID AM 12/16 (ordered already as such, rivas checked by CM $47) No bleeding, no CP/SOB reported PT/OT consulted - awaiting placement for rehab, [facility] when bed available -CM following - (2) Urge incontinence: Plan: Added Vibegron. First dose will be 12/17 check urine culture results pending (3) DVT of leg (deep venous thrombosis): Plan: noted on US as above, heparin --> Eliquis and will be continued at d/c (4) CHF (congestive heart failure): Plan: BNP 658 w/ imaging w/ evidence for pulmonary edema/volume overload as well as dilated IVC on ECHO EF 50-55% HFpEF On torsemide "prn" for hx cirrhosis, labs are stable at this time Given 20mg IV lasix in ER w/ good diuresis and was to be continued but not ordered. Torsemide made DAILY follow for renal function (5) Hypothyroidism: Plan: chronic and stable Continue levothyroxine 225mcg daily. TSH wnl on check (6) Ileostomy in place: Plan: Ileostomy is functioning at baseline per patient . Changed AM 12/10 by nursing, daughter to bring in some supplies from home Does have signs of fungal infection on the skin under the ostomy bag and nystatin ordered. Stable on repeat exam and improved. Also resumed home abx as below (checking cd iff given increased output since resuming abx/changed ostomy 2-3 times 12/13 but no significant output now and had not been collected but can monitor given abx use) Fungal appearance much improved (7) Elevated troponin: Plan: Initial high sen trop elevated at 21 with 2 hour repeat down to 20 Patient denies chest pain, no acute ST segment or T-wave changes on ECG . Suspect elevation 2nd to demand ischemia from volume overload but also PE as above No CP reported. NSR on monitor w/ PACs (8) Cirrhosis: Plan: Per review of previous [facility] notes the patient is followed outpatient by Dr. Bonilla but has not had a formal outpatient evaluation. LFTs wnl on admission, INR 1.0 US abd s/p IV diuretics in ER w/o abdominal ascites for tap, diuretics as outlined above Outpt f/u with [facility] at discharge Heart healthy diet, 1800mL fluid restriction added -will need additional counseling at discharge No evidence for decompensated cirrhosis at present time. (9) Diabetes mellitus, type 2: Plan: Hold metformin while inpatient and utilizing SSI while inpatient. 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 Bonilla and reportedly was on Cipro/Flagyl on admission and reported improvement while on abx - No abx ordered, will need to verify w/ patient/reordered if needed --> ORDERED CIPRO 500mg BID, FLAGYL 500mg TID (based on prior rx fill, month supply) on 12/09 and continued Reported improvement on exam/changing ostomy 12/10, 12/12 Continue abx as outlined, outpatient f/u [facility] (11) Abnormal finding on imaging: Plan: On CTA of chest, report noting a 4.6 cm calcified extra-axial lesion in the left aspect of the thoracic spinal canal at T6-T7. This severely effaces the thecal sac, and could represent iatrogenic change or possibly a calcified extra-axial mass lesion such as a meningioma or nerve sheath tumor. Clinical correlation will be required. This is not an acute finding and and should be correlated with any prior outside chest imaging. Nonemergent follow up with neurology is advised. Plan continued inpatient stay, [facility]/insurance auth received. CM to follow - Admission and Anticipated Discharge Date Admission Date: December 07, 2023 Subjective pt is without complaints looking for placement for rehab Physical Exam Physical Exam: pt has clear lungs cardiac is regular Results & Data Results & Data Vital Signs (Past 12 Hours) Vital Signs Temp Pulse Resp BP Pulse Ox O2 Del Method 12/18/23 07:13 98.1 F 67 18 117/72 94 Room Air Laboratory Results review cbc review chemistry PG Care Time/CCT Total # of Minutes Spent Total Time Spent with Patient: Total time spent is greater than 50% in coordination of care (as documented) at patient's floor/unit and/or counseling patient: Coding Level of Care Code 40309 SUB INP/OBS CARE 2/35MIN Diagnoses Pulmonary embolism, bilateral I26.99 Urge incontinence N39.41 DVT of leg (deep venous thrombosis) I82.409 CHF (congestive heart failure) I50.9 Heart failure chronicity: acute Heart failure type: unspecified Hypothyroidism E03.[address] Z93.2 Elevated troponin R79.89 Cirrhosis K74.60 Diabetes mellitus, type 2 E11.9 Abdominal fistula K63.2 Abnormal finding on imaging R93.89 (4) CHF (congestive heart failure) Heart failure chronicity: acute Heart failure type: unspecified Qualified Code(s): I50.9 - Heart failure, unspecified
[2023-12-18] MEDS: hydrOXYzine HCl 10 MG TAB PO PRN (21:53)
[2023-12-19] MEDS: LEVOTHYROXINE SODIUM 75 MCG TABLET PO SCH (05:49)
[2023-12-19] MEDS: metroNIDAZOLE 500 MG TAB PO SCH ×3 (05:50→21:56)
[2023-12-19] MEDS: VIBEGRON 75 MG TAB PO SCH (07:39)
[2023-12-19] MEDS: CIPROFLOXACIN 500 MG TAB PO SCH ×2 (07:39→20:18)
[2023-12-19] MEDS: APIXABAN 5 MG TABLET PO SCH ×2 (07:39→20:18)
[2023-12-19] MEDS: METOPROLOL TARTRATE 25 MG TAB PO SCH ×2 (07:39→20:17)
[2023-12-19] MEDS: TORSEMIDE 10 MG TAB PO SCH (07:39)
[2023-12-19] MEDS: NYSTATIN CR 15 GM TUBE EXT SCH ×3 (07:40→20:18)
[2023-12-19] MEDS: INSULIN ASPART PER UNIT CHARGE SC SCH ×4 (08:28→20:18)
[2023-12-19] MEDS: ACETAMINOPHEN 325 MG TAB PO PRN ×2 (15:28→21:56)
--- NOTE | 2023-12-19 15:55 | Hospitalist Progress Note ---
Date of Service December 19, 2023 Assessment & Plan (1) Pulmonary embolism, bilateral: Plan: Progressive acute shortness of breath/RIOS x 2-3 months with increased LE edema/swelling in patient w/ hx PE ~10 years ago/underwent tx w/ oral AC without reported hx major bleeding/rx to heparin in the past Bilateral PE due to right popliteal DVT +/- right saphenous vein SVT. Possible acute on chronic exacerbation of CHF (HFpEF) Venous doppler obtained due to R leg swelling, impression w/ Occlusive thrombus within the right popliteal vein and adjacent lesser saphenous vein CTA chest with extensive bilateral pulmonary emboli, cardiomegaly with evidence of pulmonary artery hypertension. Cirrhotic liver morphology (also notes calcified lesion thoracic spine as below) ECHO w/ EF 50-55%, no wma. Does note grade I diastolic dysfunction. IVC mildly dilated (see diuretics below) metoprolol tartrate 12.5mg BID -consider advancing GDMT but BP stable/HR stable and will continue this for now Heparin gtt--> Eliquis 10mg BID 12/09, transitioned to 5mg BID AM 12/16 (ordered already as such, rivas checked by CM $47) No bleeding, no CP/SOB reported PT/OT consulted - awaiting placement for rehab, [facility] when bed available -CM following - (2) Urge incontinence: Plan: Added Vibegron. First dose will be 12/17 check urine culture results pending (3) DVT of leg (deep venous thrombosis): Plan: noted on US as above, heparin --> Eliquis and will be continued at d/c (4) CHF (congestive heart failure): Plan: BNP 658 w/ imaging w/ evidence for pulmonary edema/volume overload as well as dilated IVC on ECHO EF 50-55% HFpEF On torsemide "prn" for hx cirrhosis, labs are stable at this time Given 20mg IV lasix in ER w/ good diuresis and was to be continued but not ordered. Torsemide made DAILY follow for renal function (5) Hypothyroidism: Plan: chronic and stable Continue levothyroxine 225mcg daily. TSH wnl on check (6) Ileostomy in place: Plan: Ileostomy is functioning at baseline per patient . Changed AM 12/10 by nursing, daughter to bring in some supplies from home Does have signs of fungal infection on the skin under the ostomy bag and nystatin ordered. Stable on repeat exam and improved. Also resumed home abx as below (checking cd iff given increased output since resuming abx/changed ostomy 2-3 times 12/13 but no significant output now and had not been collected but can monitor given abx use) Fungal appearance much improved (7) Elevated troponin: Plan: Initial high sen trop elevated at 21 with 2 hour repeat down to 20 Patient denies chest pain, no acute ST segment or T-wave changes on ECG . Suspect elevation 2nd to demand ischemia from volume overload but also PE as above No CP reported. NSR on monitor w/ PACs (8) Cirrhosis: Plan: Per review of previous [facility] notes the patient is followed outpatient by Dr. Bonilla but has not had a formal outpatient evaluation. LFTs wnl on admission, INR 1.0 US abd s/p IV diuretics in ER w/o abdominal ascites for tap, diuretics as outlined above Outpt f/u with [facility] at discharge Heart healthy diet, 1800mL fluid restriction added -will need additional counseling at discharge No evidence for decompensated cirrhosis at present time. 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 Bonilla and reportedly was on Cipro/Flagyl on admission and reported improvement while on abx - No abx ordered, will need to verify w/ patient/reordered if needed --> ORDERED CIPRO 500mg BID, FLAGYL 500mg TID (based on prior rx fill, month supply) on 12/09 and continued Reported improvement on exam/changing ostomy 12/10, 12/12 Continue abx as outlined, outpatient f/u [facility] (11) Abnormal finding on imaging: Plan: On CTA of chest, report noting a 4.6 cm calcified extra-axial lesion in the left aspect of the thoracic spinal canal at T6-T7. This severely effaces the thecal sac, and could represent iatrogenic change or possibly a calcified extra-axial mass lesion such as a meningioma or nerve sheath tumor. Clinical correlation will be required. This is not an acute finding and and should be correlated with any prior outside chest imaging. Nonemergent follow up with neurology is advised. Plan continued inpatient stay, [facility] when [facility]/insurance auth received. CM to follow - Admission and Anticipated Discharge Date Admission Date: December 07, 2023 Subjective pt is without complaints, patient was denied rehab. Patient is planning on going home but home health services cannot be arranged until 21 December subsequently we will shoot for discharge in the day. Otherwise no physical complaints at all Very little change in her management as occurred on 12/19/2023 Physical Exam Physical Exam: pt has clear lungs cardiac is regular Results & Data Results & Data Vital Signs (Past 12 Hours) Vital Signs Temp Pulse Resp BP BP Pulse Ox O2 Del Method 12/19/23 14:46 98.1 F 92 H 17 126/63 93 Room Air 12/19/23 07:30 97.7 F 69 17 119/76 92 Room Air Laboratory Results Reviewed [id number] glucose PG Care Time/CCT Total # of Minutes Spent Total Time Spent with Patient: Total time spent is greater than 50% in coordination of care (as documented) at patient's floor/unit and/or counseling patient: Coding Level of Care Code 51917 SUB INP/OBS CARE 2/35MIN Diagnoses Pulmonary embolism, bilateral I26.99 Urge incontinence N39.41 DVT of leg (deep venous thrombosis) I82.409 CHF (congestive heart failure) I50.9 Heart failure chronicity: acute Heart failure type: unspecified Hypothyroidism E03.[address] Z93.2 Elevated troponin R79.89 Cirrhosis K74.60 Diabetes mellitus, type 2 E11.9 Abdominal fistula K63.2 Abnormal finding on imaging R93.89 (4) CHF (congestive heart failure) Heart failure chronicity: acute Heart failure type: unspecified Qualified Code(s): I50.9 - Heart failure, unspecified
[2023-12-19] MEDS: metFORMIN HCL 500 MG TAB PO SCH (17:13)
[2023-12-19] MEDS: hydrOXYzine HCl 10 MG TAB PO PRN (21:56)
[2023-12-20] MEDS: LEVOTHYROXINE SODIUM 75 MCG TABLET PO SCH (05:40)
[2023-12-20] MEDS: metroNIDAZOLE 500 MG TAB PO SCH ×3 (05:40→22:07)
[2023-12-20] MEDS: APIXABAN 5 MG TABLET PO SCH ×2 (07:49→20:56)
[2023-12-20] MEDS: metFORMIN HCL 500 MG TAB PO SCH ×2 (07:49→17:16)
[2023-12-20] MEDS: TORSEMIDE 10 MG TAB PO SCH (07:50)
[2023-12-20] MEDS: NYSTATIN CR 15 GM TUBE EXT SCH ×3 (07:50→20:56)
[2023-12-20] MEDS: METOPROLOL TARTRATE 25 MG TAB PO SCH ×2 (07:50→20:55)
[2023-12-20] MEDS: CIPROFLOXACIN 500 MG TAB PO SCH ×2 (07:50→20:54)
[2023-12-20] MEDS: VIBEGRON 75 MG TAB PO SCH (07:50)
[2023-12-20] MEDS: INSULIN ASPART PER UNIT CHARGE SC SCH ×4 (07:53→20:59)
[2023-12-20 08:22] LABS: Albumin Level 3.5 gm/dl (3.4-5.0); Bilirubin Direct 0.1 mg/dl (0-0.2); Bilirubin,Total 0.5 mg/dl (0.2-1.0); Total Protein 6.8 gm/dl (6.0-8.3)
--- NOTE | 2023-12-20 11:38 | Hospitalist Progress Note ---
Date of Service December 20, 2023 Assessment & Plan (1) Pulmonary embolism, bilateral: Plan: Progressive acute shortness of breath/RIOS x 2-3 months with increased LE edema/swelling in patient w/ hx PE ~10 years ago, this was treated acutely and anticoagulation discontinue Bilateral PE due to right popliteal DVT +/- right saphenous vein SVT. Possible acute on chronic exacerbation of CHF (HFpEF) Venous doppler obtained due to R leg swelling, impression w/ Occlusive thrombus within the right popliteal vein and adjacent lesser saphenous vein CTA chest with extensive bilateral pulmonary emboli, cardiomegaly with evidence of pulmonary artery hypertension. Cirrhotic liver morphology (also notes calcified lesion thoracic spine as below) ECHO w/ EF 50-55%, no wma. Does note grade I diastolic dysfunction. IVC mildly dilated (see diuretics below) metoprolol tartrate 12.5mg BID Heparin gtt--> Eliquis 10mg BID 12/09, transitioned to 5mg BID AM 12/16 (ordered already as such, rivas checked by $47) No bleeding, no CP/SOB reported PT/OT consulted -patient will do physical therapy at home (2) Urge incontinence: Plan: Added Vibegron. First dose will be 12/17 check urine culture results contaminated specimen (3) DVT of leg (deep venous thrombosis): Plan: noted on US as above, heparin --> Eliquis and will be continued at d/c (4) CHF (congestive heart failure): Plan: BNP 658 w/ imaging w/ evidence for pulmonary edema/volume overload as well as dilated IVC on ECHO EF 50-55% HFpEF On torsemide "prn" for hx cirrhosis, labs are stable at this time Given 20mg IV lasix in ER w/ good diuresis and was to be continued but not ordered. Torsemide made DAILY follow for renal function (5) Hypothyroidism: Plan: chronic and stable Continue levothyroxine 225mcg daily. TSH wnl on check (6) Ileostomy in place: Plan: Ileostomy is functioning at baseline per patient . Changed AM 12/10 by nursing, daughter to bring in some supplies from home Does have signs of fungal infection on the skin under the ostomy bag and nystatin ordered. Stable on repeat exam and improved. Also resumed home abx as below (checking cdiff given increased output since resuming abx/changed ostomy 2-3 times 12/13 but no significant output now and had not been collected but can monitor given abx use) Fungal appearance much improved (7) Elevated troponin: Plan: Initial high sen trop elevated at 21 with 2 hour repeat down to 20 Patient denies chest pain, no acute ST segment or T-wave changes on ECG . Suspect elevation 2nd to demand ischemia from volume overload but also PE as above No CP reported. NSR on monitor w/ PACs (8) Cirrhosis: Plan: Per review of previous [facility] notes the patient is followed outpatient by Dr Brandi Bonilla but has not had a formal outpatient evaluation. LFTs wnl on admission, INR 1.0 US abd s/p IV diuretics in ER w/o abdominal ascites for tap, diuretics as outlined above Outpt f/u with [facility] at discharge Heart healthy diet, 1800mL fluid restriction added -will need additional counseling at discharge No evidence for decompensated cirrhosis at present time. 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 Colorectal Surgery, Dr. Bonilla and reportedly was on Cipro/Flagyl on admission and reported improvement while on abx - No abx ordered, will need to verify w/ patient/reordered if needed --> ORDERED CIPRO 500mg BID, FLAGYL 500mg TID (based on prior rx fill, month supply) on 12/09 and continued Reported improvement on exam/changing ostomy 12/10, 12/12 Continue abx as outlined, outpatient f/u [facility] (11) Abnormal finding on imaging: Plan: On CTA of chest, report noting a 4.6 cm calcified extra-axial lesion in the left aspect of the thoracic spinal canal at T6-T7. This severely effaces the thecal sac, and could represent iatrogenic change or possibly a calcified extra-axial mass lesion such as a meningioma or nerve sheath tumor. Clinical correlation will be required. This is not an acute finding and and should be correlated with any prior outside chest imaging. Nonemergent follow up with neurology is advised. Admission and Anticipated Discharge Date Admission Date: December 07, 2023 Subjective pt is without complaints, patient was denied rehab. Patient is planning on going home but home health services cannot be arranged until 21 December Otherwise no physical complaints at all Very little change in her management as occurred on 12/20/2023 Physical Exam Physical Exam: pt has clear lungs cardiac is regular LE without edema Results & Data Results & Data Vital Signs (Past 12 Hours) Vital Signs Temp Pulse Resp BP Pulse Ox O2 Del Method 12/20/23 07:25 97.7 F 64 17 113/70 93 Room Air Laboratory Results Reviewed [id number] glucose, liver function test, protein and albumin PG Care Time/CCT Total # of Minutes Spent Total Time Spent with Patient: Total time spent is greater than 50% in coordination of care (as documented) at patient's floor/unit and/or counseling patient: Coding Level of Care Code 43489 SUB INP/OBS CARE 2/35MIN Diagnoses Pulmonary embolism, bilateral I26.99 Urge incontinence N39.41 DVT of leg (deep venous thrombosis) I82.409 CHF (congestive heart failure) I50.9 Heart failure chronicity: acute Heart failure type: unspecified Hypothyroidism E03.[address] Z93.2 Elevated troponin R79.89 Cirrhosis K74.60 Diabetes mellitus, type 2 E11.9 Abdominal fistula K63.2 Abnormal finding on imaging R93.89 (4) CHF (congestive heart failure) Heart failure chronicity: acute Heart failure type: unspecified Qualified Code(s): I50.9 - Heart failure, unspecified
[2023-12-20] MEDS: MELATONIN 3 MG TAB PO PRN (22:07)
[2023-12-20] MEDS: ACETAMINOPHEN 325 MG TAB PO PRN (22:07)
[2023-12-20] MEDS: hydrOXYzine HCl 10 MG TAB PO PRN (22:10)
[2023-12-21] MEDS: metroNIDAZOLE 500 MG TAB PO SCH (05:29)
[2023-12-21] MEDS: LEVOTHYROXINE SODIUM 75 MCG TABLET PO SCH (05:29)
[2023-12-21] MEDS: ACETAMINOPHEN 325 MG TAB PO PRN (07:23)
[2023-12-21] MEDS: VIBEGRON 75 MG TAB PO SCH (08:08)
[2023-12-21] MEDS: CIPROFLOXACIN 500 MG TAB PO SCH (08:08)
[2023-12-21] MEDS: TORSEMIDE 10 MG TAB PO SCH (08:08)
[2023-12-21] MEDS: metFORMIN HCL 500 MG TAB PO SCH (08:08)
[2023-12-21] MEDS: METOPROLOL TARTRATE 25 MG TAB PO SCH (08:08)
[2023-12-21] MEDS: APIXABAN 5 MG TABLET PO SCH (08:08)
[2023-12-21] MEDS: NYSTATIN CR 15 GM TUBE EXT SCH (08:09)
[2023-12-21] MEDS: INSULIN ASPART PER UNIT CHARGE SC SCH (08:14)
--- NOTE | 2023-12-21 13:15 | Hospitalist Progress Note ---
Date of Service December 21, 2023 Assessment & Plan Admission and Anticipated Discharge Date Admission Date: December 07, 2023 Results & Data Results & Data Vital Signs (Past 12 Hours) Vital Signs Temp Pulse Pulse Pulse Resp BP BP 12/21/23 09:41 98.1 F 66 81 68 16 128/80 111/64 12/21/23 07:45 98.1 F 68 16 128/80 Pulse Ox O2 Del Method 12/21/23 09:41 91 12/21/23 07:45 91 Room Air PG Care Time/CCT Total # of Minutes Spent Total Time Spent with Patient: Total time spent is greater than 50% in coordination of care (as documented) at patient's floor/unit and/or counseling patient: Coding
--- NOTE | 2023-12-21 13:19 | Discharge Summary ---
Date of Service December 21, 2023 Principal Diagnosis bilateral submassive PE RLE DVT HFpEF started on metoprolol overactive bladder started on vibegron Discharge Exam Pt comfortable laying mostly flat no shortness of breath legs without edema, lungs clear Discharge Data Allergies Allergy/AdvReac Type Severity Reaction Status Date / Time red dye Allergy Severe Anaphylaxis Verified 03/10/23 13:54 Consultations 12/07/23 12:09 ED Decision to Admit Stat Ordered Studies 12/07/23 13:04 US venous doppler LE RT Routine 12/07/23 13:14 US abdomen ltd ascites Routine 12/07/23 15:30 CT angio chest PE protocol Urgent Hospital Course (1) Pulmonary embolism, bilateral: Progressive acute shortness of breath/RIOS x 2-3 months with increased LE edema/swelling in patient w/ hx PE ~10 years ago, this was treated acutely and anticoagulation discontinue Bilateral PE due to right popliteal DVT +/- right saphenous vein SVT. Possible acute on chronic exacerbation of CHF (HFpEF) Venous doppler obtained due to R leg swelling, impression w/ Occlusive thrombus within the right popliteal vein and adjacent lesser saphenous vein CTA chest with extensive bilateral pulmonary emboli, cardiomegaly with evidence of pulmonary artery hypertension. Cirrhotic liver morphology (also notes calcified lesion thoracic spine as below) ECHO w/ EF 50-55%, no wma. Does note grade I diastolic dysfunction. IVC mildly dilated (see diuretics below) metoprolol tartrate 12.5mg BID Heparin gtt--> Eliquis 10mg BID 12/09, transitioned to 5mg BID AM 12/16 (ordered already as such, rivas checked by $47) No bleeding, no CP/SOB reported PT/OT consulted -patient will do physical therapy at home, home health set up (2) Urge incontinence: Added Vibegron. First dose will be 12/17 check urine culture results contaminated specimen (3) DVT of leg (deep venous thrombosis): noted on US as above, heparin --> Eliquis and will be continued at d/c (4) CHF (congestive heart failure): BNP 658 w/ imaging w/ evidence for pulmonary edema/volume overload as well as dilated IVC on ECHO EF 50-55% HFpEF On torsemide "prn" for hx cirrhosis, labs are stable at this time Given 20mg IV lasix in ER w/ good diuresis and was to be continued but not ordered. Torsemide made DAILY follow for renal function at discharge (5) Hypothyroidism: chronic and stable Continue levothyroxine 225mcg daily. TSH wnl on check (6) Ileostomy in place: Ileostomy is functioning at baseline per patient . Changed AM 12/10 by nursing, daughter to bring in some supplies from home Does have signs of fungal infection on the skin under the ostomy bag and nystatin ordered. Stable on repeat exam and improved. Also resumed home abx as below (checking cdiff given increased output since resuming abx/changed ostomy 2-3 times 12/13 but no significant output now and had not been collected but can monitor given abx use) Fungal appearance much improved (7) Elevated troponin: Initial high sen trop elevated at 21 with 2 hour repeat down to 20 Patient denies chest pain, no acute ST segment or T-wave changes on ECG . Suspect elevation 2nd to demand ischemia from volume overload but also PE as above No CP reported. NSR on monitor w/ PACs (8) Cirrhosis: Per review of previous [facility] notes the patient is followed outpatient by Dr. Bonilla but has not had a formal outpatient evaluation. LFTs wnl on admission, INR 1.0 US abd s/p IV diuretics in ER w/o abdominal ascites for tap, diuretics as outlined above Outpt f/u with [facility] at discharge Heart healthy diet, 1800mL fluid restriction added -will need additional counseling at discharge No evidence for decompensated cirrhosis at present time. 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 Bonilla and reportedly was on Cipro/Flagyl on admission and reported improvement while on abx - No abx ordered, will need to verify w/ patient/reordered if needed --> ORDERED CIPRO 500mg BID, FLAGYL 500mg TID (based on prior rx fill, month supply) on 12/09 and continued Reported improvement on exam/changing ostomy 12/10, 12/12 Continue abx as outlined, outpatient f/u [facility] colorectal/[facility] (11) Abnormal finding on imaging: On CTA of chest, report noting a 4.6 cm calcified extra-axial lesion in the left aspect of the thoracic spinal canal at T6-T7. This severely effaces the thecal sac, and could represent iatrogenic change or possibly a calcified extra-axial mass lesion such as a meningioma or nerve sheath tumor. Clinical correlation will be required. This is not an acute finding and and should be correlated with any prior outside chest imaging. Nonemergent follow up with neurology is advised. Total Time Total Time Spent Total Time Spent (In Minutes): It required greater than 30 minutes to prepare this patient for discharge. Discharge Plan Discharge Items Patient Disposition: Home - Home Health Services Reason For Visit: SOB, WEIGHT GAIN, ORTHOSTASIS SYMPTOMS Discharge Diagnosis: Pulmonary embolism deep venous thrombosis lower extremity edema Activity: Per Instructions section Activity Comment: keep legs elevated as much as able Non-emergency contact: Primary Care Provider Call non-emergency contact if: your symptoms worsen Follow-up/Referrals: Tanisha Reyes MD [Primary Care Provider] - 12/28/23 8:45 am Diet: Carb Consistent or DM2 and Low Sodium (2gm) Addtl Attending Provider Instructions: please continue to watch your diet for both salt and high sugar foods elevated you legs when resting please follow up with your family doctor to follow up on your fluid and blood thinner Addtl Sole Cutter Provider Instructions: Medication Instructions: Your condition is typically treated with an anticoagulant. Anticoagulants will thin your blood to help prevent new clots. * You should take her medication exactly as directed. * Never skip a dose. * Never take a double dose. If you miss a dose, take it as soon as you remember. Call your Primary Care doctor if you experience any of the following: * Swelling or Pain in your leg * Sudden, continuous pain deep in a muscle * Pain that worsens when you are active or when you stand still for a long time * Chest Pain * Sudden Shortness of Breath * Rapid or pounding heart beat * Fainting * Dizziness * Cough with blood or bloody sputum * Sweating more than normal * Bruises * Heavy or uncontrolled bleeding * Blood in your urine, stool or vomit * Black or tarry stools Caring for Your Self at Home: * Avoid sitting, standing or lying down for long periods without moving your legs and feet * When traveling by car, stop to get out and move around at least once every 3 hours * On long airplane, train or bus rides, get up and move around when possible * If you can't get up, wiggle your toes and tighten your calves to keep your blood moving Follow Up: It is important for you to keep your follow up appointments with your medical provider. Pending Studies at Discharge: No Stand-Alone Forms: My [facility], Smoking Cessation Medications and DC Order Prescriptions: New Eliquis 5 mg tablet 5 mg PO BID Qty: 60 0RF metoprolol tartrate 25 mg Tablet 12.5 mg PO BID Qty: 30 3RF Gemtesa 75 mg Tablet 75 mg PO DAILY Qty: 30 2RF Continued diclofenac sodium [Voltaren Arthritis Pain] 1 % gel 2 g topical QID Qty: 200 2RF Rx Instructions: apply to single elbow, wrist or hand; for hand includes palm/fingers/back of hand levothyroxine 200 mcg Tablet 200 mcg PO QAM Patient Comments: takes 200 mcg with 25 mcg for dose of 225 mcg cyanocobalamin (vitamin B-12) [Vitamin B-12] 1,000 mcg Tablet 1,000 mcg PO QAM cholecalciferol (vitamin D3) [Vitamin D3] 50 mcg (2,000 unit) Capsule 50 mcg PO QAM levothyroxine 25 mcg Tablet 25 mcg PO QAM Patient Comments: takes with 200 mcg metformin 500 mg Tablet 500 mg PO BID pravastatin 40 mg Tablet 40 mg PO HS calcium carbonate [Calcium 600] 600 mg calcium (1,500 mg) Tablet 600 mg PO BID famotidine [Pepcid] 20 mg Tablet 20 mg PO DAILY PRN (Reason: Acid Reflux) Patient Comments: hardly uses Changed torsemide 10 mg Tablet 10 mg PO DAILY Qty: 30 5RF potassium chloride 20 mEq Tablet Extended Release 20 meq PO DAILY Qty: 30 0RF Discontinued Align 4 mg Capsule 4 mg PO QAM Discharge Orders: Discharge Order (Routine); Ordered 12/21/23 Ordered By: Jag Alvarado/Other Patient Handouts: Managing Type 2 Diabetes Admission Data Admit Date/Time: 12/07/23 12:43 Attending Provider: Jag Prabhakar Admit Provider: Omer Conti Primary Care Provider: Tanisha Reyes Other Providers: [facility],Health; [place],Care; Omer Conti; [facility]; [place],Rehab; [facility],Home Healthcare; [facility],Home Health; [facility]HOME [facility]ALTH Other Interventions: Discharge Summary Assessment (RN) Last Done: 12/21/23 09:41 Coding Level of Care Code 66265 INP/OBS DISCH >30 MIN Diagnoses Pulmonary embolism, bilateral I26.99 Urge incontinence N39.41 DVT of leg (deep venous thrombosis) I82.409 CHF (congestive heart failure) I50.9 Heart failure chronicity: acute Heart failure type: unspecified Hypothyroidism E03.[address] Z93.2 Elevated troponin R79.89 Cirrhosis K74.60 Diabetes mellitus, type 2 E11.9 Abdominal fistula K63.2 Abnormal finding on imaging R93.89
--- NOTE | 2023-12-25 07:39 | Coding Query ---
CODING QUERY To promote full compliance with coding requirements relating to patient care, provider participation is requested in all cases of bench worker binding uncertainty. Please assist us with the question(s) below: Coding Question(s): Clarification is needed in order to determine the diagnosis most responsible for occasioning this inpatient admission as there was documentation on the H&P specifying the reason for admission, of, "Patient is recommended for admission for new symptomatic CHF", with no further documentation in the record that specified, after study, the diagnosis most responsible for occasioning the admission. Please specify below, in your opinion, the diagnosis, after study, most responsible for occasioning the admission: ( ) new symptomatic CHF ( ) Acute DVT and Pulmonary Embolism equally responsible ( ) Acute DVT ( ) Pulmonary Embolism ( xx ) CHF, Acute DVT and Pulmonary Embolism equally responsible ( ) Other: Please specify Physician's Response(s): Thank you Marissa Rivero Principal Diagnosis: "that condition established after study, to be chiefly responsible for occasioning the admission of the patient to the hospital for care." Co-Existing Principal Diagnosis: "when two or more diagnoses equally meet the criteria for principal diagnosis as determined by the circumstances of admission, diagnostic work up, and/or therapy provided, and the Alphabetic Index, Tabular List, or another coding guideline does not provide sequencing direction, any one of the diagnoses may be sequenced first." "When the physician has documented what appears to be a current diagnosis in the body of the record, but has not included the diagnosis in the final diagnostic statement, the physician should be asked whether the diagnosis should be added." (Source Coding [facility] 2 QTR90. p3-4) JAMEY
== END 2023-12-21 11:21 | disposition home health service (06) | DRG 299 ==
LOC: ED 08:45 → SUATTDRO 12:43 → EDINP 12:43 → 2N 17:06 → 3N 12-14 18:06

== ENCOUNTER 2023-12-22 17:22 | Inpatient (IN) ==
--- NOTE | 2023-12-22 17:52 | XRay Report ---
XR chest 1V not portable HISTORY: 78 years-old Female Chest pain, nonspecific COMPARISON: December 07, 2023 TECHNIQUE: AP view the chest FINDINGS: Cardiac silhouette is enlarged. Pulmonary vascular congestion. No pneumothorax, large pleural effusio n or overt pulmonary edema. Mild left basilar atelectasis. Bones appear grossly intact. IMPRESSION: Cardiomegaly with pulmonary vascular congestion. ACT 112: Negative or not required by law. The above report was generated using voice recognition software. It may contain grammatical, syntax o r spelling errors. Electronically signed by: Gian Carlton M.D. 12/22/2023 5:50 PM
[2023-12-22 18:47] LABS: Basophils # (auto) 0.07 K/uL (0.00-0.20); Basophils % (auto) 0.8 %; Eosinophils # (auto) 0.04 K/uL (0.00-0.50); Eosinophils % (auto) 0.5 %; Hemoglobin 14.7 g/dl (12.0-16.0); Immature Granulocytes # (auto) 0.03 K/uL (0.01-0.20); Immature Granulocytes % (auto) 0.4 %; Lymphocytes % (auto) 11.8 %; Mean Corpuscular Hemoglobin 28.8 pg (25.0-34.0); Mean Corpuscular Volume 90.2 fL (80.0-100.0); Mean Platelet Volume 10.5 fL (9.4-12.4); Monocytes # (auto) 0.58 K/uL (0.11-0.59); Monocytes % (auto) 6.9 %; Neutrophils # (auto) 6.74 K/uL (1.40-6.50); Neutrophils % (auto) 79.6 %; Platelet Count 348 K/uL (130-400); RDW Coefficient of Variation 14.9 % (11.5-14.5); RDW Standard Deviation 48.9 fL (36.4-46.3); White Blood Count 8.46 K/ul (4.8-10.8)
[2023-12-22 19:13] LABS: Partial Thromboplastin Time 28 Seconds (21-31); Prothrombin Time 11.3 Seconds (9.0-12.0)
--- NOTE | 2023-12-22 19:49 | Emergency Department Note ---
Impression & Plan Generalized weakness, Ambulatory dysfunction, Shortness of breath, VENESSA (acute kidney injury) ED Provider Note HISTORY OF PRESENT ILLNESS: Patient is a 78-year-old female presenting with lightheadedness and shortness of breath. Patient was just discharged from the hospital yesterday and discharged home with home health. Family reports that the patient was supposed to be placed in rehab, but there were no available rehab beds within the area and they were only offered places in [place] and further away. They tried to go home with home health but family reports the patient is too weak to get up and go to the bathroom on her own. They do not feel comfortable having her at home. Today she stood up to try to go to the bathroom and was very weak and felt lightheaded and dizzy like she was going to pass out and became short of breath. She had some left-sided chest pressure earlier today. Denies any nausea or vomiting. Denies any fever or cough. Reports her lower extremity edema has improved. She does not normally wear any supplemental oxygen at baseline. ROS: as above PHYSICAL EXAM: Constitutional: Patient appears in no acute distress. HENT: Head: Normocephalic and atraumatic. Eyes: EOMI, PERRL Mouth/Throat: Mucous membranes moist. Neck: Trachea midline. Neck supple. Cardiovascular: RRR, No murmurs, rubs or gallops. Intact distal pulses. Pulmonary/Chest: No respiratory distress. Breath sounds clear and equal bilaterally. No wheezes or rales. Abdominal: Abdomen soft, no tenderness, rebound or guarding. Ileostomy in place. Musculoskeletal: No edema, tenderness or deformity noted. Skin: Warm and dry. No rash, erythema, pallor or cyanosis Psychiatric: Appropriate mood and affect for situation. Neurological: Alert and keenly responsive. CN II-XII grossly intact, moving all extremities equally and fully. MDM: - Vitals signs showed borderline hypoxia, with saturations of 91% on room air. She was placed on 2 L nasal cannula - History obtained via patient. Patient presents with lightheadedness and shortness of breath. Patient was discharged from the hospital yesterday. Reports that she was very lightheaded and too weak to get up to get to the bathroom today. States that when she stood up she felt like she was going to fall over and felt dizzy. She also became short of breath. Reports of left- sided chest pressure earlier today. Denies any nausea or vomiting. She does not wear any supplemental oxygen at baseline. - Chronic conditions affecting care: morbid obesity; hypothyroidism; DM-2 - Differential diagnoses include, but are not limited to: Congestive heart failure; acute coronary syndrome; COPD/asthma exacerbation; pulmonary edema; pulmonary embolism; pneumonia; pneumothorax; viral syndrome - Order placed for continuous cardiac monitoring. At this time, monitor showed rate of 83 bpm with normal sinus rhythm, per my interpretation. - External medical records reviewed. Discharge summary dated 12/21/2023 was reviewed. Patient was admitted for bilateral submassive PEs, right lower extremity DVT and heart failure with preserved ejection fraction. - EKG interpreted by myself showed normal sinus rhythm. Rate 75 bpm. QTc 398. No acute ischemic changes. - Laboratory workup interpreted by myself showed normal WBC; stable electrolytes; VENESSA (Cr 1.31); slightly elevated BNP (134 - but improved from patient's previous); normal troponin - CXR negative for pneumonia, per my interpretation. Radiology notes cardiomegaly with pulmonary vascular congestion. - Patient's VENESSA, and resulting complaint of dizziness, likely secondary to over- diuresis. Given 1L NS. - Given the patient and family do not feel comfortable sending her home, will admit to the hospitalist service for rehab placement. Family and patient are agreeable to going outside of the area for rehab if needed. - Discussion was had with home health care case manager about patient's case and need for admission - Hospitalist consulted for admission - Patient admitted to [facility] hospitalist service for further evaluation and management. 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 Surgical History History of benign breast biopsy History of total left knee replacement (TKR) History of total right knee replacement (TKR) History of gastric bypass History of hernia surgery History of cholecystectomy History of appendectomy History of colonoscopy and ileoscopy History of esophagogastroduodenoscopy (EGD) History of colon resection performed about 20yrs ago d/t ulcerative colitis---has ileostomy History of tooth extraction History of wisdom tooth extraction History of thyroidectomy, total d/t nodules History of bilateral cataract extraction Family History Sister Family history of reaction to anesthesia nausea/vomiting Social History Smoking Status: Unknown if ever smoked Second Hand Exposure: No; Do You Dip or Chew Tobacco: No; Hx Alcohol Use: No Hx Substance Use: No Preferred Language: Lithuanian Communication Ability: Effective 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 Beliefs That Will Affect Care: None Current Living Situation: Alone Feels Safe at Home: Yes Assistive Devices: Glasses and Walker Allergies Allergies Allergy/AdvReac Type Severity Reaction Status Date / Time red dye Allergy Severe Anaphylaxis Verified 03/10/23 13:54 Home Meds Home Medications Medication Instructions Recorded Confirmed calcium carbonate 600 mg calcium 600 mg PO BID 09/18/22 12/22/23 (1,500 mg) tablet (Calcium) famotidine 20 mg tablet (Pepcid) 20 mg PO DAILY PRN Acid Reflux 09/18/22 12/22/23 metformin 500 mg tablet 500 mg PO BID 09/18/22 12/22/23 pravastatin 40 mg tablet 40 mg PO HS 09/18/22 12/22/23 levothyroxine 200 mcg tablet 200 mcg PO QAM 12/03/22 12/22/23 cholecalciferol (vitamin D3) 50 50 mcg PO QAM 02/27/23 12/22/23 mcg (2,000 unit) capsule (Vitamin D3) cyanocobalamin (vitamin B-12) 1,000 mcg PO QAM 02/27/23 12/22/23 1,000 mcg tablet (Vitamin B-12) levothyroxine 25 mcg tablet 25 mcg PO QAM 12/07/23 12/22/23 Previous Rx's Medication Instructions Recorded diclofenac sodium 1 % topical gel 2 g topical QID #200 grams 01/26/23 (Voltaren Arthritis Pain) apixaban 5 mg tablet (Eliquis) 5 mg PO BID #60 tabs 12/09/23 metoprolol tartrate 25 mg tablet 12.5 mg (1/2 x 25 mg) PO BID #30 12/20/23 tabs potassium chloride 20 mEq 20 meq PO DAILY takes when taking 12/20/23 tablet,extended release torsemide #30 tabs torsemide 10 mg tablet 10 mg PO DAILY edema in feet #30 12/20/23 tabs vibegron 75 mg tablet (Gemtesa) 75 mg PO DAILY #30 tabs 12/20/23 Results & Data (ED) Vital Signs Vital Signs - 24 hr 12/22/23 17:29 Temperature 36.9 C Temperature Source Temporal Artery Scan Pulse Rate 83 Respiratory Rate 22 Respiratory Effort / Characteristics Non-Labored Spontaneous Respiratory Depth Normal Blood Pressure 125/80 Blood Pressure Mean 95 Oxygen Delivery Method Nasal Cannula Oxygen Flow Rate 2 Sepsis Recent Fever Within 48 Hours No Sepsis New/Unexplained Change in Mental Status N/A Sepsis Action Taken by Nursing No Action Required Laboratory Data 12/22/23 18:17 12/22/23 18:17 Lab Results 12/22/23 Range/Units 18:17 WBC 8.46 (4.8-10.8) K/ul RBC 5.10 (4.20-5.40) M/uL Hgb 14.7 (12.0-16.0) g/dl Hct 46.0 (37.0-47.0) % MCV 90.2 (80.0-100.0) fL MCH 28.8 (25.0-34.0) pg MCHC 32.0 (32.0-36.0) g/dL RDW Std Deviation 48.9 H (36.4-46.3) fL RDW Coeff of Laurie 14.9 H (11.5-14.5) % Plt Count 348 (130-400) K/uL MPV 10.5 (9.4-12.4) fL Immature Gran % (Auto) 0.4 % Neut % (Auto) 79.6 % Lymph % (Auto) 11.8 % Gordon % (Auto) 6.9 % Eos % (Auto) 0.5 % Baso % (Auto) 0.8 % Neut # (Auto) 6.74 H (1.40-6.50) K/uL Lymph # (Auto) 1.00 L (1.20-3.40) K/uL Gordon # (Auto) 0.58 (0.11-0.59) K/uL Eos # (Auto) 0.04 (0.00-0.50) K/uL Baso # (Auto) 0.07 (0.00-0.20) K/uL Immature Gran # (Auto) 0.03 (0.01-0.20) K/uL PT 11.3 (9.0-12.0) Seconds INR 1.0 (0.9-1.1) APTT 28 (21-31) Seconds PTT Ratio 1.0 Sodium 137 (136-145) mmol/L Potassium 4.5 (3.5-5.1) mmol/L Chloride 100 (98-107) mmol/L Carbon Dioxide 26 (21-32) mmol/L Anion Gap 11 (3-11) BUN 43 H (6-23) mg/dl Creatinine 1.31 H (0.6-1.2) mg/dl Est Cr Clr Drug Dosing Not Reportable Est GFR ( Amer) 45.7 ml/min Est GFR (Non-Af Amer) 39.5 ml/min BUN/Creatinine Ratio 32.8 H (10-20) Glucose 147 H (70-99(Fasting)) mg/dl Calcium 9.5 (8.6-10.3) mg/dl Total Bilirubin 0.6 (0.2-1.0) mg/dl ALT 10 (7-52) U/L Alkaline Phosphatase 102 (34-104) U/L Troponin I High Sens 13.7 (0-14) pg/ml B-Natriuretic Peptide 134 H (0-100) pg/ml Total Protein 8.7 H (6.0-8.3) gm/dl Albumin 4.3 (3.4-5.0) gm/dl Globulin 4.4 H (2.5-4.0) gm/dl Albumin/Globulin Ratio 1.0 (0.9-2) Administered Medications Sodium Chloride (Nss) 1,000 mls @ 999 mls/hr IV .Q1H1M ONE Stop: 12/22/23 21:04 Last Admin: 12/22/23 20:07 Dose: 999 mls/hr Documented By: KMS Imaging Data Radiologist's Impression: Chest X-Ray 12/22/23 17:33 XR chest 1V not portable HISTORY: 78 years-old Female Chest pain, nonspecific COMPARISON: December 07, 2023 TECHNIQUE: AP view the chest FINDINGS: Cardiac silhouette is enlarged. Pulmonary vascular congestion. No pneumothorax, large pleural effusion or overt pulmonary edema. Mild left basilar atelectasis. Bones appear grossly intact. IMPRESSION: Cardiomegaly with pulmonary vascular congestion. ACT 112: Negative or not required by law. The above report was generated using voice recognition software. It may contain grammatical, syntax or spelling errors. Electronically signed by: Gian Carlton M.D. 12/22/2023 5:50 PM Discharge Plan Visit Data Chief Complaint: Shortness of Breath/Dyspnea Stated Complaint: SOB, DIZZY ED Provider: Meri Lewis Discharge Problem: Generalized weakness, Ambulatory dysfunction, Shortness of breath, VENESSA (acute kidney injury) Forms Stand Alone Forms: My [facility] Prescriptions Prescriptions: No Action diclofenac sodium [Voltaren Arthritis Pain] 1 % gel 2 g topical QID Qty: 200 2RF Rx Instructions: apply to single elbow, wrist or hand; for hand includes palm/fingers/back of hand levothyroxine 200 mcg Tablet 200 mcg PO QAM Patient Comments: takes 200 mcg with 25 mcg for dose of 225 mcg cyanocobalamin (vitamin B-12) [Vitamin B-12] 1,000 mcg Tablet 1,000 mcg PO QAM cholecalciferol (vitamin D3) [Vitamin D3] 50 mcg (2,000 unit) Capsule 50 mcg PO QAM levothyroxine 25 mcg Tablet 25 mcg PO QAM Patient Comments: takes with 200 mcg Eliquis 5 mg tablet 5 mg PO BID Qty: 60 0RF metoprolol tartrate 25 mg Tablet 12.5 mg PO BID Qty: 30 3RF Gemtesa 75 mg Tablet 75 mg PO DAILY Qty: 30 2RF torsemide 10 mg Tablet 10 mg PO DAILY Qty: 30 5RF potassium chloride 20 mEq Tablet Extended Release 20 meq PO DAILY Qty: 30 0RF metformin 500 mg Tablet 500 mg PO BID pravastatin 40 mg Tablet 40 mg PO HS calcium carbonate [Calcium 600] 600 mg calcium (1,500 mg) Tablet 600 mg PO BID famotidine [Pepcid] 20 mg Tablet 20 mg PO DAILY PRN (Reason: Acid Reflux) Patient Comments: hardly uses Referrals Referrals: Tanisha Reyes MD [Primary Care Provider] -
[2023-12-22 20:00] LABS: Alanine Aminotransferase 10 U/L (7-52); Albumin Level 4.3 gm/dl (3.4-5.0); Alkaline Phosphatase 102 U/L (34-104); Anion Gap 11 (3-11); BUN Creatinine Ratio 32.8 (10-20); Bilirubin,Total 0.6 mg/dl (0.2-1.0); Blood Urea Nitrogen 43 mg/dl (6-23); Calcium 9.5 mg/dl (8.6-10.3); Carbon Dioxide 26 mmol/L (21-32); Chloride 100 mmol/L (98-107); Est GFR (African American) 45.7 ml/min; Est GFR (Non-African American) 39.5 ml/min; Globulin 4.4 gm/dl (2.5-4.0); Glucose 147 mg/dl (70-99(Fasting)); Potassium 4.5 mmol/L (3.5-5.1); Sodium 137 mmol/L (136-145); Total Protein 8.7 gm/dl (6.0-8.3); Troponin I High Sensitivity 13.7 pg/ml (0-14)
[2023-12-22] MEDS ORDERED: SODIUM CHLORIDE 0.9% 1,000 ML IV ONE (20:04)
[2023-12-22 20:49] LABS: Influenza A virus by PCR Negative (Neg); Influenza B virus by PCR Negative (Neg); RSV by PCR Negative (Neg); SARS CoV2 RNA(COVID-19) Ceph NEGATIVE (Negative)
--- NOTE | 2023-12-22 20:56 | History & Physical Report ---
Date of Service December 22, 2023 Assessment & Plan (1) RIOS (dyspnea on exertion): Plan: -Admit to med/tele on pulse oximetry -Currently stable on RA when she has a good waveform and hemodynamically stable -Has continued to experience RIOS and chest pressure with exertion, asymptomatic at rest -While some of her symptoms could be explained with her recently diagnosed BL PE's, she has new T-wave inversions in the anterior leads today compared to previous ECG -Patient also noted to have Cardiomegaly with interstitial pulmonary edema on CXR today -TTE obtained during last admission showed HFpEF, grade I diastolic dysfunction, and increased right ventricular systolic pressure -Was ordered 1L NSS by the ED; she received approximately 250 cc before I discontinued the order; nursing staff was made aware -Initial high sen trop is WNL and she is asymptomatic at rest -Will trend high sen trop overnight and obtain mag level -Will consult cardiology for further evaluation -Will consult PT/OT again as she likely needs inpatient PT/OT on discharge -Home Eliquis for DVT PPX -HH/DMII diet with 2gm sodium restriction and 1800 mL fluid restriction (2) VENESSA (acute kidney injury): Plan: -Cr today is 1.3, baseline is near 0.9 -BUN also elevated today at 43 -Likely due to the daily 10 mg Torsemide she was discharged on -Volume management is difficult with her as she appears to be intravascularly depleted but with cardiomegaly and interstitial pulmonary vascular congestion -Will hold torsemide for now, monitor daily renal function and electrolytes -Will likely need to restart torsemide at a lower dose or consider different diuretic moving forward -Avoid nephrotoxic agents (3) Postural lightheadedness: Plan: -Continues to experience lightheadedness with standing -Denies symptoms at rest -Likely due to orthostasis -Holding torsemide for now with VENESSA but will hold additional IV fluids to avoid volume overload -Monitor am orthostatic vitals -Will require continued coaching regarding positional changes -RICKEY's and abdominal binder will not be possible with her body habitus (4) Pulmonary embolism, bilateral: Plan: -Continue Eliquis (5) Diabetes mellitus, type 2: Plan: -Hold metformin for now -Monitor BSG ACHS goal is 110-140 -Start CF of 50 for now, hold carb ratio -HH/DMII diet -Hold basal insulin for now (6) Cirrhosis: Plan: -Stable -Continue to monitor volume status (7) Ileostomy in place: Plan: -Conitnue ostomy care (8) Hypothyroidism: Plan: -Conitune levothyroxine (9) Abdominal fistula: Plan: -Continue chronic ciprofloxacin and flagyl as prescribed by her Colorectal surgeon (10) Abnormal finding on imaging: Plan: -On CTA of chest from last admission, report noting a 4.6 cm calcified extra- axial lesion in the left aspect of the thoracic spinal canal at T6-T7. This severely effaces the thecal sac, and could represent iatrogenic change or possibly a calcified extra-axial mass lesion such as a meningioma or nerve sheath tumor. Clinical correlation will be required. This is not an acute finding and and should be correlated with any prior outside chest imaging. -Nonemergent follow up with neurology is advised. Plan The patient was discussed with Dr. Yan at the time of the admission History of Present Illness Chief Complaint: SOB Primary Care Provider: Tanisha Reyes MD Symone is a 78 year old female with a PMH significant for DMII, Chron's disease S/P total proctocolectomy with current colostomy status, CESAR, GERD, and recent admission to [facility] who presented to the [facility] via EMS on 12/22/23 with complaints of SOB. She was placed on 2L NC by EMS but was otherwise stable in the ED. Labs were significant for a lymphocyte count of 1.00, Cr of 1.31 (baseline is near 1.0), BUN of 43, BNP of 134 (down from 380 as of 12/14), and covid 19/RSV/Influenza negative. CXR was read as "Cardiomegaly with pulmonary vascular congestion. ". Prior to admission the patient was given 1L NSS. The patient was recently admitted to 12/07-12/21 for progressive SOB/RIOS, LE selling, and lightheadedness with standing. See discharge summary from 12/21 for details. She was evaluated by PT/OT and elected discharge how with PT/OT. At the time of the exam the patient was lying in bed in no acute distress. She states that she woke up this am and is still experiencing dizziness with standing and chest pressure in the substernal region/left chest with ambulation. She did take her am medications as prescribed. Her son is currently staying with her for the week as she was discharged home yesterday from [facility]. She states that her PCP office called to schedule her post discharge appointment. When she told them the symptoms she was still experiencing they recommended she go to the ED for re-evaluation. She states that she feels well at rest but is symptomatic with standing and ambulation. She denies fever, chills, cough, abd pain, nausea, vomiting, increased ostomy output, dysuria, hematuria, melena, and recent falls. Please refer to Dr. Yan's attestation for any changes to the treatment plan Allergies Allergy/AdvReac Type Severity Reaction Status Date / Time red dye Allergy Severe Anaphylaxis Verified 03/10/23 13:54 Home Medications Medication Instructions Recorded Confirmed Type calcium carbonate 600 mg calcium 600 mg PO BID 09/18/22 12/22/23 History (1,500 mg) tablet (Calcium) famotidine 20 mg tablet (Pepcid) 20 mg PO DAILY PRN Acid Reflux 09/18/22 12/22/23 History metformin 500 mg tablet 500 mg PO BID 09/18/22 12/22/23 History pravastatin 40 mg tablet 40 mg PO HS 09/18/22 12/22/23 History levothyroxine 200 mcg tablet 200 mcg PO QAM 12/03/22 12/22/23 History diclofenac sodium 1 % topical gel 2 g topical QID #200 grams 01/26/23 12/22/23 Rx (Voltaren Arthritis Pain) cholecalciferol (vitamin D3) 50 50 mcg PO QAM 02/27/23 12/22/23 History mcg (2,000 unit) capsule (Vitamin D3) cyanocobalamin (vitamin B-12) 1,000 mcg PO QAM 02/27/23 12/22/23 History 1,000 mcg tablet (Vitamin B-12) levothyroxine 25 mcg tablet 25 mcg PO QAM 12/07/23 12/22/23 History apixaban 5 mg tablet (Eliquis) 5 mg PO BID #60 tabs 12/09/23 12/22/23 Rx metoprolol tartrate 25 mg tablet 12.5 mg (1/2 x 25 mg) PO BID #30 12/20/23 12/22/23 Rx tabs potassium chloride 20 mEq 20 meq PO DAILY takes when taking 12/20/23 12/22/23 Rx tablet,extended release torsemide #30 tabs torsemide 10 mg tablet 10 mg PO DAILY edema in feet #30 12/20/23 12/22/23 Rx tabs vibegron 75 mg tablet (Gemtesa) 75 mg PO DAILY #30 tabs 12/20/23 12/22/23 Rx Past Med/Surg History Medical History (Updated 12/23/23 @ 10:41 by Roosevelt Chang MD) Morbid obesity with BMI of 50.0-59.9, adult Osteoarthritis Ileostomy in place Ulcerative colitis Hypothyroidism Diabetes mellitus, type 2 on metformin daily History of pulmonary embolism "at least 10yrs ago"--unknown cause, was on blood thinners, but then taken off--per pt no issues currently Heart murmur follows with PCP--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 Surgical History History of benign breast biopsy History of total left knee replacement (TKR) History of total right knee replacement (TKR) History of gastric bypass History of hernia surgery History of cholecystectomy History of appendectomy History of colonoscopy and ileoscopy History of esophagogastroduodenoscopy (EGD) History of colon resection performed about 20yrs ago d/t ulcerative colitis---has ileostomy History of tooth extraction History of wisdom tooth extraction History of thyroidectomy, total d/t nodules History of bilateral cataract extraction Family History Sister Family history of reaction to anesthesia nausea/vomiting Social History Smoking Status: Never smoker Second Hand Exposure: No; Do You Dip or Chew Tobacco: No; Hx Alcohol Use: No Hx Substance Use: No Preferred Language: Malay Communication Ability: Effective Life Assurance Representative Required: No Beliefs That Will Affect Care: None Current Living Situation: Alone Current Living Situation Comment: Chickens Feels Safe at Home: Yes Assistive Devices: Glasses and Walker Physical Exam Physical Exam: Physical Exam: General: In no acute distress, stated age, morbidly obese, non-toxic appearing HEENT: Normocephalic, atraumatic, no scleral icterus, pupils around round, symmetrical, and reactive to light, moist mucus membranes, trachea midline, no thyromegaly Chest/Pulm: No respiratory distress, symmetrical chest expansion, scattered rales throughout Cardiac: regular rate, irregular rhythm, no murmurs noted Abdomen: Negative for ascites and bruising, ostomy bag located in the right lower abdomen is currently full but without signs of infection, soft and non- tender throughout Musculoskeletal: Symmetrical and without signs of acute trauma, upper and lower extremities with full ROM, no atrophy, spasticity, or flaccidity Extremities: Radial, dorsalis pedis, and posterior tibial pulses are intact and symmetrical, chronic swelling noted in the BL LE's Skin: Warm, dry, no rashes , lesions, or scars noted Neuro: Alert and oriented to person, place, month, year, and president, no focal defects, no tremors noted Psych: No acute distress, calm and cooperative during the exam Results & Data Results & Data Vital Signs (Past 12 Hours) Vital Signs Temp Pulse Pulse Resp BP BP Pulse Ox 12/22/23 20:49 64 16 126/75 99 12/22/23 20:49 98 12/22/23 17:29 36.9 C 83 22 125/80 O2 Del Method O2 Flow Rate 12/22/23 20:49 Nasal Cannula 2 12/22/23 20:49 Nasal Cannula 2 12/22/23 17:29 Nasal Cannula 2 Laboratory Results Abnormal lab results 12/22/23 Range/Units 18:17 RDW Std Deviation 48.9 H (36.4-46.3) fL RDW Coeff of Laurie 14.9 H (11.5-14.5) % Neut # (Auto) 6.74 H (1.40-6.50) K/uL Lymph # (Auto) 1.00 L (1.20-3.40) K/uL BUN 43 H (6-23) mg/dl Creatinine 1.31 H (0.6-1.2) mg/dl BUN/Creatinine Ratio 32.8 H (10-20) Glucose 147 H (70-99(Fasting)) mg/dl B-Natriuretic Peptide 134 H (0-100) pg/ml Total Protein 8.7 H (6.0-8.3) gm/dl Globulin 4.4 H (2.5-4.0) gm/dl Diagnostic Findings Chest X-Ray 12/22/23 17:33 XR chest 1V not portable HISTORY: 78 years-old Female Chest pain, nonspecific COMPARISON: December 07, 2023 TECHNIQUE: AP view the chest FINDINGS: Cardiac silhouette is enlarged. Pulmonary vascular congestion. No pneumothorax, large pleural effusion or overt pulmonary edema. Mild left basilar atelectasis. Bones appear grossly intact. IMPRESSION: Cardiomegaly with pulmonary vascular congestion. ACT 112: Negative or not required by law. The above report was generated using voice recognition software. It may contain grammatical, syntax or spelling errors. Electronically signed by: Gian Carlton M.D. 12/22/2023 5:50 PM ECG Additional Comments: Normal sinus rhythm Moderate voltage criteria for LVH, may be normal variant ( R in aVL , Jg product ) Nonspecific ST and T wave abnormality Abnormal ECG When compared with ECG of 07-DEC-2023 09:06, Premature supraventricular complexes are no longer Present Inverted T waves have replaced nonspecific T wave abnormality in Anterior leads Code Status & VTE Plan Code Status Full code VTE Prophylaxis Plan VTE Prophylaxis will be ordered: Yes Supervising Physician Co-Signing Physician Notes Attending addendum: I have physically seen this patient, have supervised the FIDELINA's activities, and agree with the H&P unless as otherwise noted. Assessment and Plan: Dyspnea on exertion- Cardiomegaly noted on chest x-ray May just be an issue with general deconditioning and morbid obesity Just completed a 14-day stay in the hospital from 12/07-12/21/2023 The patient will be admitted to telemetry for serial cardiac enzymes, serial EKG's, cardiac rhythm monitoring Most recent echocardiogram during last admission showed HFpEF, grade 1 diastolic dysfunction, and increased right ventricular systolic pressure. Symptoms are more likely related to PEs diagnosed and treated during last admission IV fluids held that have been started by ED EKG with T wave inversions in V3-V5 are new compared to 12/07/2023 Get cardiology opinion PEs- Continue Eliquis Acute kidney injury- Creatinine 1.31, with base 1.04 Hold off on any fluids at this point as noted above Repeat laboratories in a.m. Diabetes mellitus- Holding metformin Placed on Accu-Cheks with NovoLog SSI PG Care Time/CCT Total # of Minutes Spent Total Time Spent with Patient: Total time spent is greater than 50% in coordination of care (as documented) at patient's floor/unit and/or counseling patient: C[place] [address] INT INP/OBS CARE 375MIN Patient Type Established Medical Decision Making High Complexity Diagnoses RIOS (dyspnea on exertion) R06.09 VENESSA (acute kidney injury) N17.9 Postural lightheadedness R42 Pulmonary embolism, bilateral I26.99 Diabetes mellitus, type 2 E11.9 Cirrhosis K74.[address] Z93.2 Hypothyroidism E03.9 Abdominal fistula K63.2 Abnormal finding on imaging R93.89
[2023-12-22] MEDS ORDERED: GLUCOSE 10 TAB/TUBE PO PRN (21:21)
[2023-12-22] MEDS ORDERED: CARBOHYDRATES FOR HYPOGLYCEMIA PO PRN (21:21)
[2023-12-22] MEDS ORDERED: DEXTROSE 50% 50 ML SYRINGE IV PRN (21:21)
[2023-12-22] MEDS ORDERED: GLUCOSE 40% GEL 15 GM TUBE PO PRN (21:21)
[2023-12-22] MEDS ORDERED: GLUCAGON FOR INJ 1 MG VIAL SQ PRN (21:21)
[2023-12-22 23:05] LABS: Aspartate Aminotransferase 16 U/L (13-39)
[2023-12-22 23:59] LABS: Magnesium 1.7 mg/dl (1.7-2.4)
[2023-12-23] MEDS ORDERED: FAMOTIDINE 20 MG TAB PO PRN (00:08)
[2023-12-23] MEDS ORDERED: ACETAMINOPHEN 325 MG TAB PO PRN (00:08)
[2023-12-23 00:11] LABS: Troponin I High Sensitivity 13.5 pg/ml (0-14)
[2023-12-23 03:46] LABS: Hematocrit (blood only) 40.6 % (37.0-47.0); Hemoglobin 13.4 g/dl (12.0-16.0); Mean Corpuscular Hemoglobin 29.4 pg (25.0-34.0); Mean Platelet Volume 10.7 fL (9.4-12.4); Platelet Count 321 K/uL (130-400); RDW Coefficient of Variation 14.9 % (11.5-14.5); RDW Standard Deviation 48.4 fL (36.4-46.3); Red Blood Count 4.56 M/uL (4.20-5.40)
[2023-12-23 03:55] LABS: Calcium 9.1 mg/dl (8.6-10.3); Magnesium 1.8 mg/dl (1.7-2.4)
[2023-12-23 04:00] LABS: BUN Creatinine Ratio 36.8 (10-20); Creatinine Clr Calc Pharmacy 65.9 ml/min; Est GFR (African American) 54.1 ml/min; Est GFR (Non-African American) 46.7 ml/min
[2023-12-23 04:10] LABS: Prothrombin Time 11.4 Seconds (9.0-12.0)
[2023-12-23] MEDS ORDERED: LEVOTHYROXINE SODIUM 25 MCG TABLET PO SCH (06:30)
[2023-12-23] MEDS ORDERED: LEVOTHYROXINE SODIUM 50 MCG TABLET PO SCH (06:30)
[2023-12-23] MEDS: [UNRECOGNIZED DRUG - OTHER] PO SCH (06:40)
[2023-12-23] MEDS: LEVOTHYROXINE SODIUM PO SCH ×2 (06:40)
[2023-12-23] MEDS: [UNRECOGNIZED DRUG - OTHER] PO SCH (06:40)
--- NOTE | 2023-12-23 06:45 | Hospitalist Progress Note ---
Date of Service December 23, 2023 Assessment & Plan (1) RIOS (dyspnea on exertion): (2) VENESSA (acute kidney injury): (3) Postural lightheadedness: (4) Pulmonary embolism, bilateral: (5) Diabetes mellitus, type 2: (6) Cirrhosis: (7) Ileostomy in place: (8) Hypothyroidism: (9) Abdominal fistula: (10) Abnormal finding on imaging: Plan RIOS (dyspnea on exertion) -Currently stable on RA when she has a good waveform and hemodynamically stable -Has continued to experience RIOS and chest pressure with exertion, asymptomatic at rest -While some of her symptoms could be explained with her recently diagnosed BL PE's, she has new T-wave inversions in the anterior leads today compared to previous ECG -Patient also noted to have Cardiomegaly with interstitial pulmonary edema on CXR today -TTE obtained during last admission showed HFpEF, grade I diastolic dysfunction, and increased right ventricular systolic pressure -Was ordered 1L NSS by the ED; she received approximately 250 cc before I discontinued the order; nursing staff was made aware -Initial high sen trop is WNL and she is asymptomatic at rest -Will trend high sen trop overnight and obtain mag level -Will consult cardiology for further evaluation -Will consult PT/OT again as she likely needs inpatient PT/OT on discharge -Home Eliquis for DVT PPX -HH/DMII diet with 2gm sodium restriction and 1800 mL fluid restriction (2) VENESSA (acute kidney injury): Plan: -Cr today is 1.3, baseline is near 0.9 -BUN also elevated today at 43 -Likely due to the daily 10 mg Torsemide she was discharged on -Volume management is difficult with her as she appears to be intravascularly depleted but with cardiomegaly and interstitial pulmonary vascular congestion -Will hold torsemide for now, monitor daily renal function and electrolytes -Will likely need to restart torsemide at a lower dose or consider different diuretic moving forward -Avoid nephrotoxic agents (3) Postural lightheadedness: Plan: -Continues to experience lightheadedness with standing -Denies symptoms at rest -Likely due to orthostasis -Holding torsemide for now with VENESSA but will hold additional IV fluids to avoid volume overload -Monitor am orthostatic vitals -Will require continued coaching regarding positional changes -RICKEY's and abdominal binder will not be possible with her body habitus (4) Pulmonary embolism, bilateral: Plan: -Continue Eliquis (5) Diabetes mellitus, type 2: Plan: -Hold metformin for now -Monitor BSG ACHS goal is 110-140 -Start CF of 50 for now, hold carb ratio -HH/DMII diet -Hold basal insulin for now (6) Cirrhosis: Plan: -Stable -Continue to monitor volume status (7) Ileostomy in place: Plan: -Conitnue ostomy care (8) Hypothyroidism: Plan: -Conitune levothyroxine (9) Abdominal fistula: Plan: -Continue chronic ciprofloxacin and flagyl as prescribed by her Colorectal surgeon (10) Abnormal finding on imaging: Plan: -On CTA of chest from last admission, report noting a 4.6 cm calcified extra- axial lesion in the left aspect of the thoracic spinal canal at T6-T7. This severely effaces the thecal sac, and could represent iatrogenic change or possibly a calcified extra-axial mass lesion such as a meningioma or nerve sheath tumor. Clinical correlation will be required. This is not an acute finding and and should be correlated with any prior outside chest imaging. -Nonemergent follow up with neurology is advised. Admission and Anticipated Discharge Date Admission Date: December 22, 2023 Results & Data Results & Data Vital Signs (Past 12 Hours) Vital Signs Pulse Pulse Resp BP BP Pulse Ox Pulse Ox 12/23/23 02:30 70 13 106/68 96 12/23/23 00:08 94 12/22/23 20:49 64 16 126/75 99 12/22/23 20:49 98 O2 Del Method O2 Del Method O2 Flow Rate O2 Flow Rate 12/23/23 02:30 12/23/23 00:08 Nasal Cannula 2 12/22/23 20:49 Nasal Cannula 2 12/22/23 20:49 Nasal Cannula 2
--- NOTE | 2023-12-23 08:21 | Hospitalist Progress Note ---
Date of Service December 23, 2023 Assessment & Plan (1) RIOS (dyspnea on exertion): Plan: -Has continued to experience RIOS and chest pressure with exertion, asymptomatic at rest recently diagnosed with bilateral PE's -Patient also noted to have Cardiomegaly with interstitial pulmonary edema on CXR today, cardiology does not feel significant volume overload will stop diuretics with VENESSA, also recent start on vibegron, also change to Ditropan and re order urine culture -TTE obtained during last admission showed HFpEF, grade I diastolic dysfunction, and increased right ventricular systolic pressure - -Initial high sen trop is WNL x4 -Will consult PT/OT again as she likely needs inpatient PT/OT on discharge -Home Eliquis for DVT PPX -2gm sodium restriction and 1800 mL fluid restriction (2) VENESSA (acute kidney injury): Plan: resolved -Likely due to the daily 10 mg Torsemide she was discharged on, stop altogether -Volume management is difficult with body habitus (3) Postural lightheadedness: Plan: -Continues to experience lightheadedness with standing - -Monitor am orthostatic vitals -Will require continued coaching regarding positional changes -RICKEY's and abdominal binder will not be possible with her body habitus (4) Pulmonary embolism, bilateral: Plan: -Continue Eliquis (5) Diabetes mellitus, type 2: Plan: -Hold metformin for now -Monitor BSG ACHS goal is 110-140 -Start CF of 50 for now, hold carb ratio -HH/DMII diet -Hold basal insulin for now (6) Cirrhosis: Plan: -Stable -Continue to monitor volume status (7) Ileostomy in place: Plan: -Conitnue ostomy care continue po antibiotics for abdominal fistulae (8) Hypothyroidism: Plan: -Conitune levothyroxine (9) Abnormal finding on imaging: Plan: -On CTA of chest from last admission, report noting a 4.6 cm calcified extra- axial lesion in the left aspect of the thoracic spinal canal at T6-T7. This severely effaces the thecal sac, and could represent iatrogenic change or possibly a calcified extra-axial mass lesion such as a meningioma or nerve sheath tumor. Clinical correlation will be required. This is not an acute finding and and should be correlated with any prior outside chest imaging. -Nonemergent follow up with neurology is advised. Repeat thoracic CT Admission and Anticipated Discharge Date Admission Date: December 22, 2023 Subjective pt says she was dizzy at home was mildly prerenal on admission (VENESSA) now resolved cardiology does not feel needs diuresis pt requests alternate for vibegron due to cost Physical Exam Physical Exam: awake and alert, not hypoic legs with no edema cardiac exam is regular lungs are diminished at the bases Results & Data Results & Data Vital Signs (Past 12 Hours) Vital Signs Pulse Pulse Resp BP BP Pulse Ox Pulse Ox 12/23/23 07:19 71 12/23/23 02:30 70 13 106/68 96 12/23/23 00:08 66 22 106/60 95 12/23/23 00:08 94 12/22/23 20:49 64 16 126/75 99 12/22/23 20:49 98 O2 Del Method O2 Del Method O2 Flow Rate O2 Flow Rate 12/23/23 07:19 12/23/23 02:30 12/23/23 00:08 Room Air 12/23/23 00:08 Nasal Cannula 2 12/22/23 20:49 Nasal Cannula 2 12/22/23 20:49 Nasal Cannula 2 Laboratory Results Reviewed CBC Reviewed chemistry Reviewed [id number] glucose PG Care Time/CCT Total # of Minutes Spent Total Time Spent with Patient: Total time spent is greater than 50% in coordination of care (as documented) at patient's floor/unit and/or counseling patient: Coding Level of Care Code 00702 SUB INP/OBS CARE 3/50MIN Diagnoses RIOS (dyspnea on exertion) R06.09 VENESSA (acute kidney injury) N17.9 Postural lightheadedness R42 Pulmonary embolism, bilateral I26.99 Diabetes mellitus, type 2 E11.9 Cirrhosis K74.[address] Z93.2 Hypothyroidism E03.9 Abnormal finding on imaging R93.89
[2023-12-23] MEDS: metroNIDAZOLE 500 MG TAB PO SCH ×3 (08:42→22:18)
[2023-12-23] MEDS: CIPROFLOXACIN 500 MG TAB PO SCH ×2 (08:42→22:15)
[2023-12-23] MEDS: APIXABAN 5 MG TABLET PO SCH ×2 (08:42→22:15)
[2023-12-23] MEDS: METOPROLOL TARTRATE 25 MG TAB PO SCH ×2 (08:44→22:18)
[2023-12-23] MEDS: POTASSIUM CHLORIDE CRTAB 20 MEQ TABCR PO SCH (08:44)
[2023-12-23] MEDS ORDERED: CIPROFLOXACIN 500 MG TAB PO SCH (09:00)
[2023-12-23] MEDS ORDERED: METOPROLOL TARTRATE 25 MG TAB PO SCH (09:00)
[2023-12-23] MEDS ORDERED: APIXABAN 5 MG TABLET PO SCH (09:00)
[2023-12-23] MEDS ORDERED: VIBEGRON 75 MG TAB PO SCH (09:00)
[2023-12-23] MEDS ORDERED: metroNIDAZOLE 500 MG TAB PO SCH (09:00)
[2023-12-23] MEDS ORDERED: POTASSIUM CHLORIDE CRTAB 20 MEQ TABCR PO SCH (09:00)
[2023-12-23] MEDS: INSULIN ASPART PER UNIT CHARGE SC SCH ×4 (09:35→20:35)
--- NOTE | 2023-12-23 10:44 | Cardiology Consultation ---
Date of Consultation December 23, 2023 Assessment & Plan (1) Shortness of breath: (2) Pulmonary embolism, bilateral: (3) Chest pain: Plan 1. Shortness of breath: This is not appear to be a significant problem at rest. Unclear if she will be short of breath with more ambulation. Most likely explanation is her pulmonary emboli and possible right ventricular strain noted on echocardiography on December 08. I doubt that significant congestive heart failure is playing a role. She seems to have responded positively to some mild volume administration. BNP is markedly reduced from prior admission. Chest x- ray really looks normal and she does not have significant peripheral edema. I think I would avoid additional attempts at diuresis. 2. Chest pain: This was a single episode associated with activity. Very possibly associated with the pulmonary embolus or right heart strain. I think the development of new coronary disease is unlikely. I would encourage her to ambulate with physical therapy and we can reassess her symptoms as she becomes more active. 3. Right heart strain: This was seen on her echocardiogram on the . Hopefully improved. However, significant volume depletion could compromise RV function. We could get another limited echocardiogram primarily to assess the RV function at this point. 4. Abnormal EKG: I think her EKG is similar to prior. Some of the T-wave inversions appear more prominent, but overall the pattern is the same. 5. Pulmonary emboli: She will continue systemic anticoagulation. Hemodynamically stable at this point. History of Present Illness Reason for Consultation: Abnormal EKG, chest pain Requesting Physician: Miriam Attending Physician: Jag Prabhakar MD History of Present Illness The patient is a 78-year-old woman recently discharged after discovery of DVT and pulmonary emboli. She recently presented with symptoms of lower extremity edema and dyspnea on exertion by report. She was discovered to have lower extremity DVT and pulmonary emboli. She was started on systemic anticoagulation and eventually discharged to home. It seems original plan was to discharge to rehab, but no bed was available. Immediately upon returning home the patient had some difficulty with ambulation. It seems that she attempted to ambulate out of bed to the bathroom but became significantly dizzy, lightheaded, short of breath and had a very discrete chest pain. She was also very shaky. She sat back down was brought back to the emergency room for evaluation. The patient was felt to be somewhat dehydrated and given some fluid en route. Since being in the emergency room she claims to be feeling well. She denied any shortness of breath currently. She cannot recall shortness of breath being up prominent complaint. Her lower extremity edema has resolved in entirety. No leg pain. No chest pain at rest. No pleuritic chest pain. She has not been aware of any recent palpitations but does have a history of palpitations dating back many years. These tend to be transient and rare not associated with other symptoms. She states that prior to her recent illness she was ambulatory with a walker. She was able to perform all of her usual activities at home and even drive and go shopping. She did not report limiting dyspnea or shortness of breath with that type of activity. No prior history of chest discomfort. Some mild dizziness on occasion. Primary limitation appeared to be weakness or shakiness. Allergies Allergy/AdvReac Type Severity Reaction Status Date / Time red dye Allergy Severe Anaphylaxis Verified 03/10/23 13:54 Home Medications Medication Instructions Recorded Confirmed Type calcium carbonate 600 mg calcium 600 mg PO BID 09/18/22 12/22/23 History (1,500 mg) tablet (Calcium) famotidine 20 mg tablet (Pepcid) 20 mg PO DAILY PRN Acid Reflux 09/18/22 12/22/23 History metformin 500 mg tablet 500 mg PO BID 09/18/22 12/22/23 History pravastatin 40 mg tablet 40 mg PO HS 09/18/22 12/22/23 History levothyroxine 200 mcg tablet 200 mcg PO QAM 12/03/22 12/22/23 History diclofenac sodium 1 % topical gel 2 g topical QID #200 grams 01/26/23 12/22/23 Rx (Voltaren Arthritis Pain) cholecalciferol (vitamin D3) 50 50 mcg PO QAM 02/27/23 12/22/23 History mcg (2,000 unit) capsule (Vitamin D3) cyanocobalamin (vitamin B-12) 1,000 mcg PO QAM 02/27/23 12/22/23 History 1,000 mcg tablet (Vitamin B-12) levothyroxine 25 mcg tablet 25 mcg PO QAM 12/07/23 12/22/23 History apixaban 5 mg tablet (Eliquis) 5 mg PO BID #60 tabs 12/09/23 12/22/23 Rx metoprolol tartrate 25 mg tablet 12.5 mg (1/2 x 25 mg) PO BID #30 12/20/23 12/22/23 Rx tabs potassium chloride 20 mEq 20 meq PO DAILY takes when taking 12/20/23 12/22/23 Rx tablet,extended release torsemide #30 tabs torsemide 10 mg tablet 10 mg PO DAILY edema in feet #30 12/20/23 12/22/23 Rx tabs vibegron 75 mg tablet (Gemtesa) 75 mg PO DAILY #30 tabs 12/20/23 12/22/23 Rx Patient History Medical History (Updated 12/23/23 @ 10:41 by Roosevelt Chang MD) Morbid obesity with BMI of 50.0-59.9, adult Osteoarthritis Ileostomy in place Ulcerative colitis Hypothyroidism Diabetes mellitus, type 2 on metformin daily History of pulmonary embolism "at least 10yrs ago"--unknown cause, was on blood thinners, but then taken off--per pt no issues currently Heart murmur follows with PCP--no neuro urologist Surgical History History of benign breast biopsy History of total left knee replacement (TKR) History of total right knee replacement (TKR) History of gastric bypass History of hernia surgery History of cholecystectomy History of appendectomy History of colonoscopy and ileoscopy History of esophagogastroduodenoscopy (EGD) History of colon resection performed about 20yrs ago d/t ulcerative colitis---has ileostomy History of tooth extraction History of wisdom tooth extraction History of thyroidectomy, total d/t nodules History of bilateral cataract extraction Family History Sister Family history of reaction to anesthesia nausea/vomiting Social History Smoking Status: Never smoker Second Hand Exposure: No; Do You Dip or Chew Tobacco: No; Hx Alcohol Use: No Hx Substance Use: No Preferred Language: Kyrgyz Communication Ability: Effective Front End Developer Designer Required: No Beliefs That Will Affect Care: None Current Living Situation: Alone Current Living Situation Comment: Chickens Feels Safe at Home: Yes Assistive Devices: Glasses and Walker Review of Systems Review of Systems: Per HPI. Physical Exam Physical Exam: She is alert and oriented x3. Mood affect appear normal. She answered all questions appropriately. Obese HEENT: Sclerae are anicteric. Pupils are equal and reactive to light and accommodation. Extraocular movements were intact. Neuro: Cranial nerves intact Neck: Obese Lungs: Lungs are clear to auscultation bilaterally. There are no rales wheezes or rhonchi. She has normal respiratory effort without use of accessory muscles. There is normal pulmonary excursion. Cardiac: The rhythm was regular. S1 and S2 were normal. There are no murmurs on examination. The PMI was not markedly displaced on palpation. Abdomen: The abdomen was soft and nontender. Obese Extremities: Patient has bilateral radial pulses that are equal in intensity. There is no evidence cyanosis or clubbing. There was no evidence of significant peripheral edema bilaterally. Skin: There are no rashes noted on examination today. Results & Data Vital Signs (Past 12 Hours) Vital Signs Temp Pulse Pulse Resp BP BP Pulse Ox 12/23/23 10:03 36.6 C 67 20 124/63 99 12/23/23 07:19 71 12/23/23 02:30 70 13 106/68 96 12/23/23 00:08 66 22 106/60 95 12/23/23 00:08 Pulse Ox O2 Del Method O2 Del Method O2 Flow Rate O2 Flow Rate 12/23/23 10:03 Nasal Cannula 2 12/23/23 07:19 12/23/23 02:30 12/23/23 00:08 Room Air 12/23/23 00:08 94 Nasal Cannula 2 Laboratory Results Abnormal Lab Results 12/22/23 12/22/23 12/22/23 18:17 19:52 23:36 WBC 8.46 RBC 5.10 Hgb 14.7 Hct 46.0 MCV 90.2 MCH 28.8 MCHC 32.0 RDW Std Deviation 48.9 H RDW Coeff of Laurie 14.9 H Plt Count 348 MPV 10.5 Immature Gran % (Auto) 0.4 Neut % (Auto) 79.6 Lymph % (Auto) 11.8 [place] % (Auto) 6.9 Eos % (Auto) 0.5 Baso % (Auto) 0.8 Neut # (Auto) 6.74 H Lymph # (Auto) 1.00 L [place] # (Auto) 0.58 Eos # (Auto) 0.04 Baso # (Auto) 0.07 Immature Gran # (Auto) 0.03 PT 11.3 INR 1.0 APTT 28 PTT Ratio 1.0 Sodium 137 Potassium 4.5 Chloride 100 Carbon Dioxide 26 Anion Gap 11 BUN 43 H Creatinine 1.31 H Est Cr Clr Drug Dosing Not Reportable Est GFR ( Amer) 45.7 Est GFR (Non-Af Amer) 39.5 BUN/Creatinine Ratio 32.8 H Glucose 147 H POC Glucose Calcium 9.5 Magnesium 1.7 Total Bilirubin 0.6 AST 16 ALT 10 Alkaline Phosphatase 102 Troponin I High Sens 13.7 13.5 B-Natriuretic Peptide 134 H Total Protein 8.7 H Albumin 4.3 Globulin 4.4 H Albumin/Globulin Ratio 1.0 SARS-CoV-2 (PCR) NEGATIVE Influenza Type A (PCR) Negative Influenza Type B (PCR) Negative RSV (RT-PCR) Negative 12/23/23 12/23/23 12/23/23 03:29 03:30 05:20 WBC 7.40 RBC 4.56 Hgb 13.4 Hct 40.6 MCV 89.0 MCH 29.4 MCHC 33.0 RDW Std Deviation 48.4 H RDW Coeff of Laurie 14.9 H Plt Count 321 MPV 10.7 Immature Gran % (Auto) Neut % (Auto) Lymph % (Auto) [place] % (Auto) Eos % (Auto) Baso % (Auto) Neut # (Auto) Lymph # (Auto) [place] # (Auto) Eos # (Auto) Baso # (Auto) Immature Gran # (Auto) PT 11.4 INR 1.0 APTT PTT Ratio Sodium 140 Potassium 4.0 Chloride 105 Carbon Dioxide 26 Anion Gap 9 BUN 42 H Creatinine 1.14 Est Cr Clr Drug Dosing 65.9 Est GFR ( Amer) 54.1 Est GFR (Non-Af Amer) 46.7 BUN/Creatinine Ratio 36.8 H Glucose 150 H POC Glucose 117 H Calcium 9.1 Magnesium 1.8 Total Bilirubin AST ALT Alkaline Phosphatase Troponin I High Sens 13.2 B-Natriuretic Peptide Total Protein Albumin Globulin Albumin/Globulin Ratio SARS-CoV-2 (PCR) Influenza Type A (PCR) Influenza Type B (PCR) RSV (RT-PCR) 12/23/23 08:41 WBC RBC Hgb Hct MCV MCH MCHC RDW Std Deviation RDW Coeff of Laurie Plt Count MPV Immature Gran % (Auto) Neut % (Auto) Lymph % (Auto) [place] % (Auto) Eos % (Auto) Baso % (Auto) Neut # (Auto) Lymph # (Auto) [place] # (Auto) Eos # (Auto) Baso # (Auto) Immature Gran # (Auto) PT INR APTT PTT Ratio Sodium Potassium Chloride Carbon Dioxide Anion Gap BUN Creatinine Est Cr Clr Drug Dosing Est GFR ( Amer) Est GFR (Non-Af Amer) BUN/Creatinine Ratio Glucose POC Glucose 131 H Calcium Magnesium Total Bilirubin AST ALT Alkaline Phosphatase Troponin I High Sens B-Natriuretic Peptide Total Protein Albumin Globulin Albumin/Globulin Ratio SARS-CoV-2 (PCR) Influenza Type A (PCR) Influenza Type B (PCR) RSV (RT-PCR) Diagnostic Findings Echocardiogram dated 12/08/2023: Ejection fraction 50-55%. Stage I diastolic dysfunction. Moderate right ventricular dilation with moderately reduced right ventricular systolic function Admission revealed cardiomegaly and pulmonary vascular congestion ECG Additional Comments: EKG demonstrated normal sinus rhythm with nonspecific ST and T-wave changes. PG Care Time/CCT Total # of Minutes Spent Total Time Spent with Patient: Total time spent is greater than 50% in coordination of care (as documented) at patient's floor/unit and/or counseling patient: Coding Level of Care Code 73805 INT INP/OBS CARE 3/75MIN Diagnoses Shortness of breath R06.02 Pulmonary embolism, bilateral I26.99 Chest pain R07.9
--- NOTE | 2023-12-23 11:18 | Electrocardiogram Report ---
Test Reason : Blood Pressure : / mmHG Vent. Rate : 075 BPM Atrial Rate : 075 BPM P-R Int : 154 ms QRS Dur : 082 ms QT Int : 398 ms P-R-T Axes : 052 -19 -14 degrees QTc Int : 444 ms Normal sinus rhythm Moderate voltage criteria for LVH, may be normal variant Nonspecific ST and T wave abnormality Abnormal ECG When compared with ECG of 07-DEC-2023 09:06, Premature supraventricular complexes are no longer Present Inverted T waves have replaced nonspecific T wave abnormality in Anterior leads Confirmed by Roosevelt Chang ([id number]) on 12/23/2023 11:17:48 AM Referred By: REFERRED SELF Confirmed By:Geoff Chang
--- NOTE | 2023-12-23 12:42 | XCELERA ---
[id number]
[2023-12-23] MEDS: ACETAMINOPHEN 1,000 MG/100 ML VIAL IV PRN (20:20)
[2023-12-23] MEDS ORDERED: PRAVASTATIN SOD 40 MG TAB PO SCH (21:00)
[2023-12-23] MEDS: PRAVASTATIN SOD 40 MG TAB PO SCH (22:19)
[2023-12-24 04:57] LABS: Hematocrit (blood only) 40.8 % (37.0-47.0); Hemoglobin 12.7 g/dl (12.0-16.0); Mean Corpuscular Hemoglobin 28.5 pg (25.0-34.0); Mean Corpuscular Hgb Conc 31.1 g/dL (32.0-36.0); Mean Corpuscular Volume 91.5 fL (80.0-100.0); Mean Platelet Volume 10.7 fL (9.4-12.4); Platelet Count 300 K/uL (130-400); RDW Coefficient of Variation 14.9 % (11.5-14.5); RDW Standard Deviation 49.6 fL (36.4-46.3); Red Blood Count 4.46 M/uL (4.20-5.40); White Blood Count 5.93 K/ul (4.8-10.8)
[2023-12-24 05:07] LABS: BUN Creatinine Ratio 36.2 (10-20); Calcium 9.2 mg/dl (8.6-10.3); Creatinine Clr Calc Pharmacy 71.5 ml/min; Est GFR (African American) 59.7 ml/min; Est GFR (Non-African American) 51.5 ml/min; Potassium 4.4 mmol/L (3.5-5.1)
[2023-12-24 05:13] LABS: INR 1.1 (0.9-1.1); Prothrombin Time 11.9 Seconds (9.0-12.0)
[2023-12-24] MEDS: [UNRECOGNIZED DRUG - OTHER] PO SCH (05:26)
[2023-12-24] MEDS: LEVOTHYROXINE SODIUM PO SCH ×2 (05:26)
[2023-12-24] MEDS: [UNRECOGNIZED DRUG - OTHER] PO SCH (05:26)
[2023-12-24] MEDS: INSULIN ASPART PER UNIT CHARGE SC SCH ×4 (08:48→23:09)
[2023-12-24] MEDS: metroNIDAZOLE 500 MG TAB PO SCH ×3 (08:49→20:10)
[2023-12-24] MEDS: POTASSIUM CHLORIDE CRTAB 20 MEQ TABCR PO SCH (08:49)
[2023-12-24] MEDS: METOPROLOL TARTRATE 25 MG TAB PO SCH ×3 (08:49→20:12)
[2023-12-24] MEDS: OXYBUTYNIN CHLORIDE XL 5 MG TABCR PO SCH (08:50)
[2023-12-24] MEDS: APIXABAN 5 MG TABLET PO SCH ×2 (08:50→20:08)
[2023-12-24] MEDS: CIPROFLOXACIN 500 MG TAB PO SCH ×2 (10:05→20:08)
--- NOTE | 2023-12-24 15:02 | CT Scan Report ---
CT thoracic spine wo con CLINICAL HISTORY: eval abnormality seen on CTA last admission T7 are TECHNIQUE: Multidetector row helical CT of the thoracic spine was performed without administration of intravenous contrast. Coronal and sagittal reformations were obtained. Automated dose lowering techn iques and/or adjustment according to patient size were utilized for this exam. CT DOSE: 1404.38 mGy.cm Comparison: Comparison is made to CTA chest 12/07/2023 FINDINGS: No acute fractures are identified. Degenerative changes are noted in the visualized spine. Vertebral body alignment is within normal limits. Again noted is a large calcified lesion in the thecal sac and extending out of the neural foramen at the level of T6-T7, dumbbell-shaped. A displaced spinal canal and nerve roots are partially visualized. No significant remodeling of the neural foramen is seen. G astric bypass surgery is seen with a moderate hiatal hernia. IMPRESSION: Calcified, dumbbell shaped lesion in the T6-T7 level extending outward from the thecal sac. Findings are favored to represent iatrogenic change versus atypical appearance of a nerve sheath tumor or meni ngioma. ACT 112: Negative or not required by law. Electronically signed by: Jj Botello M.D. 12/24/2023 3:00 PM
--- NOTE | 2023-12-24 19:36 | Hospitalist Progress Note ---
Date of Service December 24, 2023 Assessment & Plan (1) Postural lightheadedness: Plan: I suspect this predominantly due to acute right heart strain/poor forward flow given her clot burden with her PEs being reasonable in size and quite proximal, combined with her overall deconditioning and frailty. Currently anticoagulated, no clear indication for more aggressive therapy, particularly given that her hemodynamics and oxygenation are so stablefurther interventions such as thrombolytics/thrombectomy/etc. would likely cause for more harm than good. PT/OT eval and treat, anticipate improvement with time. (2) RIOS (dyspnea on exertion): Plan: After extensive reviewseems to just be in the early recovery phase from PEs in a patient who had a fairly extensive clot burden and a fairly frail baseline. Continue anticoagulation and supportive care. (3) VENESSA (acute kidney injury): Plan: I suspect this is predominantly due to poor forward flow due to right heart strain/backup from her PEs, fortunately creatinine is 1.05 today. DC fluid restriction, manage expectantly, discussed small fluid bolus, patient declined. (4) Pulmonary embolism, bilateral: Plan: -Continue Eliquissee above (5) Diabetes mellitus, type 2: Plan: -Hold metformin for now -Monitor BSG ACHS goal is 110-140 -Start CF of 50 for now, hold carb ratio -Sugars have been reasonable (6) Cirrhosis: Plan: -Stable -Continue to monitor volume status (7) Ileostomy in place: Plan: -Conitnue ostomy care (8) Hypothyroidism: Plan: -Conitune levothyroxine (9) Abdominal fistula: Plan: -Continue chronic ciprofloxacin and flagyl as prescribed by her Colorectal surgeon (10) Abnormal finding on imaging: Plan: -CT T-spine shows yet again a nonspecific finding with a fairly wide differential. Given her general lack of symptoms from it, and given how heavily calcified it sounds like it Shireen suspect this is something that has been quite chronic. We discussed optionspatient herself notes that she would definitely not want any kind of surgery unless it was indicated, and I discussed that given her general lack of symptoms, I would not be recommending a surgeon anticipate intervention either. In discussion with daughter, it was decided that a repeat exam (CT versus MRI) in about 3 months would be reasonableand if it shows stability over time, especially given her lack of symptoms, then it can become much more of a background issue. Plan PT/OT eval and treat, anticipate SNF at discharge Admission and Anticipated Discharge Date Admission Date: December 22, 2023 Subjective Notes that she is feeling better. Still has some degree of lightheadedness on exertion, but in discussion of a small fluid bolus to help remedy this, she is actually far more concerned about the fact that that would make venous stasis swelling in her legs worse, and declines. She is waiting on SNF/subacute rehab, and very much would like to go. We discussed her spine findings on CT thoracic spineand she relates may be very occasional left upper abdominal lower chest wall pain that she cannot quite discern the cause for her, but otherwise nothing. Extensive 20+ minutes of telephone discussion with her daughter at daughter's request, updated the best my ability and to her satisfaction as well. Review of Systems Review of Systems: All systems reviewed & are unremarkable except as noted in HPI & below Physical Exam Physical Exam: In general she is awake and alert pleasant no distress. HEENT normocephalic atraumatic mucous membranes moist. Breathing unlabored no accessory muscle use good effort. Skin shows no rashes no pallor or icterus. Neuro without focal deficits. Results & Data Results & Data Vital Signs (Past 12 Hours) Vital Signs Temp Pulse Pulse Resp BP Pulse Ox O2 Del Method 12/24/23 18:29 71 12/24/23 15:48 97.9 F 81 18 119/64 94 Room Air 12/24/23 09:09 Room Air 12/24/23 08:32 97.7 F 71 16 114/73 96 Room Air PG Care Time/CCT Total # of Minutes Spent Total Time Spent with Patient: Total time spent is greater than 50% in coordination of care (as documented) at patient's floor/unit and/or counseling patient: Coding Level of Care Code 49063 SUB INP/OBS CARE 3/50MIN Diagnoses Postural lightheadedness R42 RIOS (dyspnea on exertion) R06.09 VENESSA (acute kidney injury) N17.9 Pulmonary embolism, bilateral I26.99 Diabetes mellitus, type 2 E11.9 Cirrhosis K74.[address] Z93.2 Hypothyroidism E03.9 Abdominal fistula K63.2 Abnormal finding on imaging R93.89
[2023-12-24] MEDS: PRAVASTATIN SOD 40 MG TAB PO SCH (20:11)
[2023-12-24] MEDS: ACETAMINOPHEN 1,000 MG/100 ML VIAL IV PRN (20:25)
[2023-12-25 05:24] LABS: Hematocrit (blood only) 38.7 % (37.0-47.0); Hemoglobin 12.5 g/dl (12.0-16.0); Mean Corpuscular Hgb Conc 32.3 g/dL (32.0-36.0); Mean Corpuscular Volume 89.8 fL (80.0-100.0); Platelet Count 287 K/uL (130-400); RDW Coefficient of Variation 14.7 % (11.5-14.5); RDW Standard Deviation 48.3 fL (36.4-46.3); Red Blood Count 4.31 M/uL (4.20-5.40); White Blood Count 5.72 K/ul (4.8-10.8)
[2023-12-25 05:40] LABS: Calcium 9.1 mg/dl (8.6-10.3); Creatinine Clr Calc Pharmacy 74.8 ml/min; Est GFR (African American) 63.4 ml/min; Est GFR (Non-African American) 54.7 ml/min
[2023-12-25] MEDS: LEVOTHYROXINE SODIUM PO SCH ×2 (05:43)
[2023-12-25] MEDS: [UNRECOGNIZED DRUG - OTHER] PO SCH (05:43)
[2023-12-25] MEDS: [UNRECOGNIZED DRUG - OTHER] PO SCH (05:43)
[2023-12-25 05:58] LABS: INR 1.1 (0.9-1.1); Prothrombin Time 11.7 Seconds (9.0-12.0)
[2023-12-25] MEDS: OXYBUTYNIN CHLORIDE XL 5 MG TABCR PO SCH (08:23)
[2023-12-25] MEDS: metroNIDAZOLE 500 MG TAB PO SCH ×3 (08:23→19:57)
[2023-12-25] MEDS: POTASSIUM CHLORIDE CRTAB 20 MEQ TABCR PO SCH (08:23)
[2023-12-25] MEDS: APIXABAN 5 MG TABLET PO SCH ×2 (08:24→19:56)
[2023-12-25] MEDS: METOPROLOL TARTRATE 25 MG TAB PO SCH (08:24)
[2023-12-25] MEDS: CIPROFLOXACIN 500 MG TAB PO SCH ×2 (08:24→19:56)
[2023-12-25] MEDS: INSULIN ASPART PER UNIT CHARGE SC SCH ×4 (09:22→21:34)
--- NOTE | 2023-12-25 18:29 | Hospitalist Progress Note ---
Date of Service December 25, 2023 Assessment & Plan (1) RIOS (dyspnea on exertion): Plan: pt gets dizzy and short of breath with exertion asymptomatic at rest recently diagnosed with bilateral PE's deconditioning and morbid obesity are part of it, BMI 56 recently started on metoprolol will change to coreg at low dose and stop bladder/ incont, agents -TTE obtained during last admission showed HFpEF, grade I diastolic dysfunction, and increased right ventricular systolic pressure - -Initial high sen trop is WNL x4, felt to be demand ischemia last stay -Will consult PT/OT again as she likely needs subacte rehab -Home Eliquis for DVT PPX (2) VENESSA (acute kidney injury): Plan: resolved -Likely due to the daily 10 mg Torsemide she was discharged on, stop altogether -Volume management is difficult with body habitus (3) Postural lightheadedness: Plan: -Continues to experience lightheadedness with standing - -Monitor am orthostatic vitals -Will require continued coaching regarding positional changes -RICKEY's and abdominal binder will not be possible with her body habitus (4) Pulmonary embolism, bilateral: Plan: -Continue Eliquis (5) Diabetes mellitus, type 2: Plan: -Hold metformin for now -Monitor BSG ACHS goal is 110-140 -Start CF of 50 for now, hold carb ratio -HH/DMII diet -Hold basal insulin for now (6) Cirrhosis: Plan: -Stable -Continue to monitor volume status (7) Ileostomy in place: Plan: -Conitnue ostomy care continue po antibiotics for abdominal fistulae (8) Hypothyroidism: Plan: -Conitune levothyroxine (9) Abnormal finding on imaging: Plan: -On CTA of chest from last admission, report noting a 4.6 cm calcified extra- axial lesion in the left aspect of the thoracic spinal canal at T6-T7. This severely effaces the thecal sac, and could represent iatrogenic change or possibly a calcified extra-axial mass lesion such as a meningioma or nerve sheath tumor. Clinical correlation will be required. This is not an acute finding and and should be correlated with any prior outside chest imaging. -Nonemergent follow up with neurology is advised. Repeat thoracic CT shows the same type of abnormalities. 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 Admission and Anticipated Discharge Date Admission Date: December 22, 2023 Subjective short readmission for dizziness and weakness since bladder agents were started for symptom relief and have dizziness as ADR will stop Physical Exam Physical Exam: cardiac is regular no murmurs lungs are clear ext with trace b/l edema Results & Data Results & Data Vital Signs (Past 12 Hours) Vital Signs Temp Pulse Pulse Resp BP Pulse Ox O2 Del Method 12/25/23 15:30 66 12/25/23 14:56 98.2 F 72 18 105/69 95 Room Air 12/25/23 11:32 97.7 F 71 18 108/71 92 Room Air 12/25/23 07:54 98.4 F 65 18 118/75 91 Room Air 12/25/23 07:27 66 Laboratory Results reviewed cbc reviewed chemistry reviewed inr PG Care Time/CCT Total # of Minutes Spent Total Time Spent with Patient: Total time spent is greater than 50% in coordination of care (as documented) at patient's floor/unit and/or counseling patient: Coding Level of Care Code 15643 SUB INP/OBS CARE 2/35MIN Diagnoses RIOS (dyspnea on exertion) R06.09 VENESSA (acute kidney injury) N17.9 Postural lightheadedness R42 Pulmonary embolism, bilateral I26.99 Diabetes mellitus, type 2 E11.9 Cirrhosis K74.[address] Z93.2 Hypothyroidism E03.9 Abnormal finding on imaging R93.89
[2023-12-25] MEDS: PRAVASTATIN SOD 40 MG TAB PO SCH (19:56)
[2023-12-25] MEDS: ACETAMINOPHEN 1,000 MG/100 ML VIAL IV PRN (21:39)
[2023-12-25] MEDS ORDERED: MELATONIN 3 MG TAB PO STA (22:14)
[2023-12-26 05:43] LABS: Hematocrit (blood only) 38.3 % (37.0-47.0); Hemoglobin 12.4 g/dl (12.0-16.0); Mean Corpuscular Hgb Conc 32.4 g/dL (32.0-36.0); Mean Corpuscular Volume 89.5 fL (80.0-100.0); Mean Platelet Volume 10.9 fL (9.4-12.4); Platelet Count 281 K/uL (130-400); RDW Coefficient of Variation 14.7 % (11.5-14.5); Red Blood Count 4.28 M/uL (4.20-5.40); White Blood Count 5.33 K/ul (4.8-10.8)
[2023-12-26] MEDS: [UNRECOGNIZED DRUG - OTHER] PO SCH (05:58)
[2023-12-26] MEDS: [UNRECOGNIZED DRUG - OTHER] PO SCH (05:58)
[2023-12-26] MEDS: LEVOTHYROXINE SODIUM PO SCH ×2 (05:58)
[2023-12-26 06:01] LABS: BUN Creatinine Ratio 31.6 (10-20); Calcium 8.9 mg/dl (8.6-10.3); Creatinine Clr Calc Pharmacy 94.5 ml/min; Est GFR (African American) 84.3 ml/min; Est GFR (Non-African American) 72.7 ml/min; Potassium 4.6 mmol/L (3.5-5.1)
[2023-12-26 06:16] LABS: INR 1.1 (0.9-1.1); Prothrombin Time 11.7 Seconds (9.0-12.0)
[2023-12-26] MEDS: carvediloL 3.125 MG TAB PO SCH ×2 (07:33→17:41)
[2023-12-26] MEDS: metroNIDAZOLE 500 MG TAB PO SCH ×3 (07:34→20:19)
[2023-12-26] MEDS: POTASSIUM CHLORIDE CRTAB 20 MEQ TABCR PO SCH (07:34)
[2023-12-26] MEDS: APIXABAN 5 MG TABLET PO SCH ×2 (07:34→20:18)
[2023-12-26] MEDS: CIPROFLOXACIN 500 MG TAB PO SCH ×2 (07:34→20:19)
[2023-12-26] MEDS: INSULIN ASPART PER UNIT CHARGE SC SCH ×4 (08:35→20:20)
[2023-12-26] MEDS: PRAVASTATIN SOD 40 MG TAB PO SCH (20:20)
--- NOTE | 2023-12-26 22:47 | Hospitalist Progress Note ---
Date of Service December 26, 2023 Assessment & Plan (1) RIOS (dyspnea on exertion): Plan: pt gets dizzy and short of breath with exertion asymptomatic at rest recently diagnosed with bilateral PE's deconditioning and morbid obesity are part of it, BMI 56 recently started on metoprolol will change to coreg at low dose and stop bladder/ incont, agents -TTE obtained during last admission showed HFpEF, grade I diastolic dysfunction, and increased right ventricular systolic pressure - -Initial high sen trop is WNL x4, felt to be demand ischemia last stay -Will consult PT/OT again as she likely needs subacte rehab: awaiting input. -Home Eliquis for DVT PPX (2) VENESSA (acute kidney injury): Plan: resolved -Likely due to the daily 10 mg Torsemide she was discharged on, stop altogether -Volume management is difficult with body habitus (3) Postural lightheadedness: Plan: -Continues to experience lightheadedness with standing - -Monitor am orthostatic vitals -Will require continued coaching regarding positional changes -RICKEY's and abdominal binder will not be possible with her body habitus (4) Pulmonary embolism, bilateral: Plan: -Continue Eliquis (5) Diabetes mellitus, type 2: Plan: -Hold metformin for now -Monitor BSG ACHS goal is 110-140 -Start CF of 50 for now, hold carb ratio -HH/DMII diet -Hold basal insulin for now (6) Cirrhosis: Plan: -Stable -Continue to monitor volume status (7) Ileostomy in place: Plan: -Conitnue ostomy care continue po antibiotics for abdominal fistulae (8) Hypothyroidism: Plan: -Conitune levothyroxine (9) Abnormal finding on imaging: Plan: -On CTA of chest from last admission, report noting a 4.6 cm calcified extra- axial lesion in the left aspect of the thoracic spinal canal at T6-T7. This severely effaces the thecal sac, and could represent iatrogenic change or possibly a calcified extra-axial mass lesion such as a meningioma or nerve sheath tumor. Clinical correlation will be required. This is not an acute finding and and should be correlated with any prior outside chest imaging. -Nonemergent follow up with neurology is advised. Repeat thoracic CT shows the same type of abnormalities. 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 Admission and Anticipated Discharge Date Admission Date: December 22, 2023 Subjective Patient reports no new symptoms. Review of Systems Review of Systems: All systems reviewed & are unremarkable except as noted in HPI & below Physical Exam Physical Exam: cardiac is regular no murmurs lungs are clear ext with trace b/l edema Results & Data Results & Data Vital Signs (Past 12 Hours) Vital Signs Temp Pulse Pulse Resp BP Pulse Ox O2 Del Method 12/26/23 19:05 36.4 C L 65 18 90/58 L 96 Room Air 12/26/23 15:54 36.5 C 68 18 115/68 95 Room Air 12/26/23 15:09 61 12/26/23 11:58 36.6 C 62 18 148/69 H 95 Room Air PG Care Time/CCT Total # of Minutes Spent Total Time Spent with Patient: Total time spent is greater than 50% in coordination of care (as documented) at patient's floor/unit and/or counseling patient: Coding Level of Care Code 37382 SUB INP/OBS CARE 2/35MIN Diagnoses RIOS (dyspnea on exertion) R06.09 VENESSA (acute kidney injury) N17.9 Postural lightheadedness R42 Pulmonary embolism, bilateral I26.99 Diabetes mellitus, type 2 E11.9 Cirrhosis K74.[address] Z93.2 Hypothyroidism E03.9 Abnormal finding on imaging R93.89
[2023-12-26] MEDS ORDERED: ACETAMINOPHEN 1,000 MG/100 ML VIAL IV STA (22:52)
[2023-12-27 05:55] LABS: Hematocrit (blood only) 38.8 % (37.0-47.0); Hemoglobin 12.3 g/dl (12.0-16.0); Mean Corpuscular Hemoglobin 28.7 pg (25.0-34.0); Mean Corpuscular Hgb Conc 31.7 g/dL (32.0-36.0); Mean Corpuscular Volume 90.4 fL (80.0-100.0); Mean Platelet Volume 10.8 fL (9.4-12.4); Platelet Count 249 K/uL (130-400); RDW Coefficient of Variation 14.8 % (11.5-14.5); RDW Standard Deviation 48.9 fL (36.4-46.3); Red Blood Count 4.29 M/uL (4.20-5.40); White Blood Count 5.82 K/ul (4.8-10.8)
[2023-12-27] MEDS: [UNRECOGNIZED DRUG - OTHER] PO SCH (06:03)
[2023-12-27] MEDS: LEVOTHYROXINE SODIUM PO SCH ×2 (06:03)
[2023-12-27] MEDS: [UNRECOGNIZED DRUG - OTHER] PO SCH (06:03)
[2023-12-27 06:12] LABS: BUN Creatinine Ratio 31.5 (10-20); Calcium 8.8 mg/dl (8.6-10.3); Creatinine Clr Calc Pharmacy 99.3 ml/min; Est GFR (African American) 92.7 ml/min; Potassium 4.5 mmol/L (3.5-5.1)
[2023-12-27 06:21] LABS: INR 1.1 (0.9-1.1); Prothrombin Time 11.5 Seconds (9.0-12.0)
[2023-12-27] MEDS: carvediloL 3.125 MG TAB PO SCH ×2 (07:46→16:15)
[2023-12-27] MEDS: APIXABAN 5 MG TABLET PO SCH ×2 (07:47→20:22)
[2023-12-27] MEDS: CIPROFLOXACIN 500 MG TAB PO SCH ×2 (07:47→20:23)
[2023-12-27] MEDS: POTASSIUM CHLORIDE CRTAB 20 MEQ TABCR PO SCH (07:47)
[2023-12-27] MEDS: metroNIDAZOLE 500 MG TAB PO SCH ×3 (07:47→20:23)
[2023-12-27] MEDS: INSULIN ASPART PER UNIT CHARGE SC SCH ×4 (08:27→20:28)
[2023-12-27] MEDS: PRAVASTATIN SOD 40 MG TAB PO SCH (20:23)
[2023-12-27] MEDS: ACETAMINOPHEN 1,000 MG/100 ML VIAL IV PRN (21:59)
--- NOTE | 2023-12-27 23:02 | Hospitalist Progress Note ---
Date of Service December 27, 2023 Assessment & Plan (1) RIOS (dyspnea on exertion): Plan: pt gets dizzy and short of breath with exertion asymptomatic at rest recently diagnosed with bilateral PE's deconditioning and morbid obesity are part of it, BMI 56 recently started on metoprolol will change to coreg at low dose and stop bladder/ incont, agents -TTE obtained during last admission showed HFpEF, grade I diastolic dysfunction, and increased right ventricular systolic pressure - -Initial high sen trop is WNL x4, felt to be demand ischemia last stay -Will consult PT/OT again as she likely needs subacte rehab: awaiting placement -Home Eliquis for DVT PPX (2) VENESSA (acute kidney injury): Plan: resolved -Likely due to the daily 10 mg Torsemide she was discharged on, stop altogether -Volume management is difficult with body habitus (3) Postural lightheadedness: Plan: -Continues to experience lightheadedness with standing - -Monitor am orthostatic vitals -Will require continued coaching regarding positional changes -RICKEY's and abdominal binder will not be possible with her body habitus (4) Pulmonary embolism, bilateral: Plan: -Continue Eliquis (5) Diabetes mellitus, type 2: Plan: -Hold metformin for now -Monitor BSG ACHS goal is 110-140 -Start CF of 50 for now, hold carb ratio -HH/DMII diet -Hold basal insulin for now (6) Cirrhosis: Plan: -Stable -Continue to monitor volume status (7) Ileostomy in place: Plan: -Conitnue ostomy care continue po antibiotics for abdominal fistulae (8) Hypothyroidism: Plan: -Conitune levothyroxine (9) Abnormal finding on imaging: Plan: -On CTA of chest from last admission, report noting a 4.6 cm calcified extra- axial lesion in the left aspect of the thoracic spinal canal at T6-T7. This severely effaces the thecal sac, and could represent iatrogenic change or possibly a calcified extra-axial mass lesion such as a meningioma or nerve harvey th tumor. Clinical correlation will be required. This is not an acute finding and and should be correlated with any prior outside chest imaging. -Nonemergent follow up with neurology is advised. Repeat thoracic CT shows the same type of abnormalities. 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 Admission and Anticipated Discharge Date Admission Date: December 22, 2023 Subjective 78 yo female reports no new symptoms. Review of Systems Review of Systems: All systems reviewed & are unremarkable except as noted in HPI & below Physical Exam Physical Exam: cardiac is regular no murmurs lungs are clear ext with trace b/l edema Results & Data Results & Data Vital Signs (Past 12 Hours) Vital Signs Temp Pulse Pulse Resp BP BP Pulse Ox 12/27/23 20:30 36.6 C 74 18 131/83 96 12/27/23 15:37 36.6 C 63 18 120/69 94 12/27/23 15:35 78 12/27/23 11:35 36.5 C 93 H 18 131/80 93 O2 Del Method 12/27/23 20:30 Room Air 12/27/23 15:37 Room Air 12/27/23 15:35 12/27/23 11:35 Room Air PG Care Time/CCT Total # of Minutes Spent Total Time Spent with Patient: Total time spent is greater than 50% in coordination of care (as documented) at patient's floor/unit and/or counseling patient: Coding Level of Care Code 42845 SUB INP/OBS CARE 2/35MIN Diagnoses RIOS (dyspnea on exertion) R06.09 VENESSA (acute kidney injury) N17.9 Postural lightheadedness R42 Pulmonary embolism, bilateral I26.99 Diabetes mellitus, type 2 E11.9 Cirrhosis K74.[address] Z93.2 Hypothyroidism E03.9 Abnormal finding on imaging R93.89
[2023-12-28 05:24] LABS: Hematocrit (blood only) 37.7 % (37.0-47.0); Hemoglobin 12.2 g/dl (12.0-16.0); Mean Corpuscular Hgb Conc 32.4 g/dL (32.0-36.0); Mean Corpuscular Volume 89.5 fL (80.0-100.0); Mean Platelet Volume 11.2 fL (9.4-12.4); Platelet Count 250 K/uL (130-400); RDW Coefficient of Variation 14.7 % (11.5-14.5); Red Blood Count 4.21 M/uL (4.20-5.40); White Blood Count 5.85 K/ul (4.8-10.8)
[2023-12-28] MEDS: LEVOTHYROXINE SODIUM PO SCH ×2 (05:32→05:33)
[2023-12-28] MEDS: [UNRECOGNIZED DRUG - OTHER] PO SCH (05:32)
[2023-12-28] MEDS: [UNRECOGNIZED DRUG - OTHER] PO SCH (05:33)
[2023-12-28 05:38] LABS: BUN Creatinine Ratio 24.1 (10-20); C Reactive Protein 0.65 mg/dl (0-0.5); Calcium 9.2 mg/dl (8.6-10.3); Creatinine Clr Calc Pharmacy 91.7 ml/min; Est GFR (African American) 84.3 ml/min; Est GFR (Non-African American) 72.7 ml/min; Potassium 4.8 mmol/L (3.5-5.1)
[2023-12-28] MEDS: carvediloL 3.125 MG TAB PO SCH ×2 (08:50→16:42)
[2023-12-28] MEDS: CIPROFLOXACIN 500 MG TAB PO SCH ×2 (08:53→20:22)
[2023-12-28] MEDS: metroNIDAZOLE 500 MG TAB PO SCH ×3 (08:53→20:23)
[2023-12-28] MEDS: POTASSIUM CHLORIDE CRTAB 20 MEQ TABCR PO SCH (08:53)
[2023-12-28] MEDS: APIXABAN 5 MG TABLET PO SCH ×2 (08:54→20:22)
[2023-12-28] MEDS: INSULIN ASPART PER UNIT CHARGE SC SCH ×4 (09:00→20:26)
[2023-12-28] MEDS: PRAVASTATIN SOD 40 MG TAB PO SCH (20:23)
[2023-12-28] MEDS: ACETAMINOPHEN 1,000 MG/100 ML VIAL IV PRN (22:22)
--- NOTE | 2023-12-28 22:27 | Hospitalist Progress Note ---
Date of Service December 28, 2023 Assessment & Plan (1) RIOS (dyspnea on exertion): Plan: pt gets dizzy and short of breath with exertion asymptomatic at rest recently diagnosed with bilateral PE's deconditioning and morbid obesity are part of it, BMI 56 recently started on metoprolol will change to coreg at low dose and stop bladder/ incont, agents -TTE obtained during last admission showed HFpEF, grade I diastolic dysfunction, and increased right ventricular systolic pressure - -Initial high sen trop is WNL x4, felt to be demand ischemia last stay -Will consult PT/OT again as she likely needs subacte rehab: awaiting placement -Home Eliquis for DVT PPX (2) VENESSA (acute kidney injury): Plan: resolved -Likely due to the daily 10 mg Torsemide she was discharged on, stop altogether -Volume management is difficult with body habitus (3) Postural lightheadedness: Plan: -Continues to experience lightheadedness with standing - -Patient continues to be orthostatic. _will consider adding midodrine at a lower dose. -Will require continued coaching regarding positional changes -RICKEY's and abdominal binder will not be possible with her body habitus (4) Pulmonary embolism, bilateral: Plan: -Continue Eliquis (5) Diabetes mellitus, type 2: Plan: -Hold metformin for now -Monitor BSG ACHS goal is 110-140 -Start CF of 50 for now, hold carb ratio -HH/DMII diet -Hold basal insulin for now (6) Cirrhosis: Plan: -Stable -Continue to monitor volume status (7) Ileostomy in place: Plan: -Conitnue ostomy care continue po antibiotics for abdominal fistulae (8) Hypothyroidism: Plan: -Conitune levothyroxine (9) Abnormal finding on imaging: Plan: -On CTA of chest from last admission, report noting a 4.6 cm calcified extra- axial lesion in the left aspect of the thoracic spinal canal at T6-T7. This severely effaces the thecal sac, and could represent iatrogenic change or possibly a calcified extra-axial mass lesion such as a meningioma or nerve sheath tumor. Clinical correlation will be required. This is not an acute finding and and should be correlated with any prior outside chest imaging. -Nonemergent follow up with neurology is advised. Repeat thoracic CT shows the same type of abnormalities. 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 Admission and Anticipated Discharge Date Admission Date: December 22, 2023 Subjective 78 yo female reports no new symptoms. Review of Systems Review of Systems: All systems reviewed & are unremarkable except as noted in HPI & below Physical Exam Physical Exam: cardiac is regular no murmurs lungs are clear ext with trace b/l edema Results & Data Results & Data Vital Signs (Past 12 Hours) Vital Signs Temp Pulse Pulse Resp BP Pulse Ox O2 Del Method 12/28/23 20:02 36.8 C 76 18 109/72 95 Room Air 12/28/23 15:38 36.6 C 92 H 18 103/64 92 Room Air 12/28/23 14:05 74 12/28/23 11:30 36.5 C 72 18 131/81 95 Room Air PG Care Time/CCT Total # of Minutes Spent Total Time Spent with Patient: Total time spent is greater than 50% in coordination of care (as documented) at patient's floor/unit and/or counseling patient: Coding Level of Care Code 92631 SUB INP/OBS CARE 2/35MIN Diagnoses RIOS (dyspnea on exertion) R06.09 VENESSA (acute kidney injury) N17.9 Postural lightheadedness R42 Pulmonary embolism, bilateral I26.99 Diabetes mellitus, type 2 E11.9 Cirrhosis K74.[address] Z93.2 Hypothyroidism E03.9 Abnormal finding on imaging R93.89
[2023-12-29 01:11] LABS: BUN Creatinine Ratio 26.3 (10-20); Calcium 8.5 mg/dl (8.6-10.3); Creatinine Clr Calc Pharmacy 95.7 ml/min; Est GFR (African American) 88.3 ml/min; Est GFR (Non-African American) 76.2 ml/min; Magnesium 1.6 mg/dl (1.7-2.4); Potassium 4.2 mmol/L (3.5-5.1)
[2023-12-29] MEDS: MAGNESIUM SULFATE / D5W 1 GM/100 ML BAG IV SCH ×2 (04:08→06:00)
[2023-12-29] MEDS: [UNRECOGNIZED DRUG - OTHER] PO SCH (06:00)
[2023-12-29] MEDS: [UNRECOGNIZED DRUG - OTHER] PO SCH (06:00)
[2023-12-29] MEDS: LEVOTHYROXINE SODIUM PO SCH ×2 (06:00)
[2023-12-29] MEDS: carvediloL 3.125 MG TAB PO SCH ×2 (08:14→17:13)
[2023-12-29] MEDS: CIPROFLOXACIN 500 MG TAB PO SCH ×2 (08:15→20:08)
[2023-12-29] MEDS: metroNIDAZOLE 500 MG TAB PO SCH ×3 (08:15→20:07)
[2023-12-29] MEDS: POTASSIUM CHLORIDE CRTAB 20 MEQ TABCR PO SCH (08:15)
[2023-12-29] MEDS: APIXABAN 5 MG TABLET PO SCH ×2 (08:16→20:08)
[2023-12-29] MEDS: INSULIN ASPART PER UNIT CHARGE SC SCH ×4 (08:47→21:18)
[2023-12-29] MEDS: PRAVASTATIN SOD 40 MG TAB PO SCH (20:08)
--- NOTE | 2023-12-29 23:09 | Hospitalist Progress Note ---
Date of Service December 29, 2023 Assessment & Plan (1) RIOS (dyspnea on exertion): Plan: pt gets dizzy and short of breath with exertion asymptomatic at rest recently diagnosed with bilateral PE's deconditioning and morbid obesity are part of it, BMI 56 recently started on metoprolol will change to coreg at low dose and stop bladder/ incont, agents -TTE obtained during last admission showed HFpEF, grade I diastolic dysfunction, and increased right ventricular systolic pressure - -Initial high sen trop is WNL x4, felt to be demand ischemia last stay added midodrine for orthostasis -Will consult PT/OT again as she likely needs subacte rehab: awaiting placement -Home Eliquis for DVT PPX (2) VENESSA (acute kidney injury): Plan: resolved -Likely due to the daily 10 mg Torsemide she was discharged on, stop altogether -Volume management is difficult with body habitus (3) Postural lightheadedness: Plan: -Continues to experience lightheadedness with standing - -Patient continues to be orthostatic. _will consider adding midodrine at a lower dose. -Will require continued coaching regarding positional changes -RICKEY's and abdominal binder will not be possible with her body habitus (4) Pulmonary embolism, bilateral: Plan: -Continue Eliquis (5) Diabetes mellitus, type 2: Plan: -Hold metformin for now -Monitor BSG ACHS goal is 110-140 -Start CF of 50 for now, hold carb ratio -HH/DMII diet -Hold basal insulin for now (6) Cirrhosis: Plan: -Stable -Continue to monitor volume status (7) Ileostomy in place: Plan: -Conitnue ostomy care continue po antibiotics for abdominal fistulae (8) Hypothyroidism: Plan: -Conitune levothyroxine (9) Abnormal finding on imaging: Plan: -On CTA of chest from last admission, report noting a 4.6 cm calcified extra- axial lesion in the left aspect of the thoracic spinal canal at T6-T7. This severely effaces the thecal sac, and could represent iatrogenic change or possibly a calcified extra-axial mass lesion such as a meningioma or nerve sheath tumor. Clinical correlation will be required. This is not an acute findin g and and should be correlated with any prior outside chest imaging. -Nonemergent follow up with neurology is advised. Repeat thoracic CT shows the same type of abnormalities. 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 Admission and Anticipated Discharge Date Admission Date: December 22, 2023 Subjective Patient reports feeling lightheaded today. Review of Systems 2 Review of Systems: All systems reviewed & are unremarkable except as noted in HPI & below Physical Exam Physical Exam: cardiac is regular no murmurs lungs are clear ext with trace b/l edema Results & Data Results & Data Vital Signs (Past 12 Hours) Vital Signs Temp Pulse Pulse Resp BP BP Pulse Ox 12/29/23 19:13 36.4 C L 84 18 112/71 94 12/29/23 17:12 75 147/90 H 12/29/23 15:34 36.5 C 76 18 127/68 95 12/29/23 14:00 75 12/29/23 11:36 36.4 C L 96 O2 Del Method 12/29/23 19:13 Room Air 12/29/23 17:12 12/29/23 15:34 Room Air 12/29/23 14:00 12/29/23 11:36 Room Air PG Care Time/CCT Total # of Minutes Spent Total Time Spent with Patient: Total time spent is greater than 50% in coordination of care (as documented) at patient's floor/unit and/or counseling patient: Coding Level of Care Code 49688 SUB INP/OBS CARE 2/35MIN Diagnoses RIOS (dyspnea on exertion) R06.09 VENESSA (acute kidney injury) N17.9 Postural lightheadedness R42 Pulmonary embolism, bilateral I26.99 Diabetes mellitus, type 2 E11.9 Cirrhosis K74.[address] Z93.2 Hypothyroidism E03.9 Abnormal finding on imaging R93.89
[2023-12-30] MEDS: [UNRECOGNIZED DRUG - OTHER] PO SCH (05:47)
[2023-12-30] MEDS: [UNRECOGNIZED DRUG - OTHER] PO SCH (05:47)
[2023-12-30] MEDS: LEVOTHYROXINE SODIUM PO SCH ×2 (05:47)
[2023-12-30] MEDS: APIXABAN 5 MG TABLET PO SCH (08:08)
[2023-12-30] MEDS: metroNIDAZOLE 500 MG TAB PO SCH ×2 (08:08→13:36)
[2023-12-30] MEDS: POTASSIUM CHLORIDE CRTAB 20 MEQ TABCR PO SCH (08:08)
[2023-12-30] MEDS: CIPROFLOXACIN 500 MG TAB PO SCH (08:09)
[2023-12-30] MEDS: carvediloL 3.125 MG TAB PO SCH (08:09)
[2023-12-30] MEDS: INSULIN ASPART PER UNIT CHARGE SC SCH ×2 (08:32→12:14)
[2023-12-30] MEDS ORDERED: MIDODRINE HCL 2.5 MG TAB PO SCH (12:00)
[2023-12-30 13:49] LABS: Hematocrit (blood only) 41.8 % (37.0-47.0); Hemoglobin 13.2 g/dl (12.0-16.0); Mean Corpuscular Hemoglobin 28.9 pg (25.0-34.0); Mean Corpuscular Hgb Conc 31.6 g/dL (32.0-36.0); Mean Corpuscular Volume 91.7 fL (80.0-100.0); Platelet Count 234 K/uL (130-400); RDW Coefficient of Variation 14.9 % (11.5-14.5); RDW Standard Deviation 50.1 fL (36.4-46.3); Red Blood Count 4.56 M/uL (4.20-5.40); White Blood Count 7.62 K/ul (4.8-10.8)
[2023-12-30 14:01] LABS: BUN Creatinine Ratio 19.7 (10-20); Calcium 8.9 mg/dl (8.6-10.3); Creatinine Clr Calc Pharmacy 104.1 ml/min; Est GFR (African American) 95.9 ml/min; Est GFR (Non-African American) 82.7 ml/min; Magnesium 1.7 mg/dl (1.7-2.4); Potassium 4.9 mmol/L (3.5-5.1)
[2023-12-30 14:08] LABS: Troponin I High Sensitivity 6.9 pg/ml (0-14)
--- NOTE | 2023-12-30 15:48 | Discharge Summary ---
Date of Service December 30, 2023 Admission HPI Per Admitting Provider Symone is a 78 year old female with a PMH significant for DMII, Chron's disease S/P total proctocolectomy with current colostomy status, CESAR, GERD, and recent admission to [facility] who presented to the [facility] via EMS on 12/22/23 with complaints of SOB. She was placed on 2L NC by EMS but was otherwise stable in the ED. Labs were significant for a lymphocyte count of 1.00, Cr of 1.31 (baseline is near 1.0), BUN of 43, BNP of 134 (down from 380 as of 12/14), and covid 19/RSV/Influenza negative. CXR was read as "Cardiomegaly with pulmonary vascular congestion. ". Prior to admission the patient was given 1L NSS. The patient was recently admitted to 12/07-12/21 for progressive SOB/RIOS, LE selling, and lightheadedness with standing. See discharge summary from 12/21 for details. She was evaluated by PT/OT and elected discharge how with PT/OT. At the time of the exam the patient was lying in bed in no acute distress. She states that she woke up this am and is still experiencing dizziness with standing and chest pressure in the substernal region/left chest with ambulation. She did take her am medications as prescribed. Her son is currently staying with her for the week as she was discharged home yesterday from [facility]. She states that her PCP office called to schedule her post discharge appointment. When she told them the symptoms she was still experiencing they recommended she go to the ED for re-evaluation. She states that she feels well at rest but is symptomatic with standing and ambulation. She denies fever, chills, cough, abd pain, nausea, vomiting, increased ostomy output, dysuria, hematuria, melena, and recent falls. Please refer to Dr. Yan's attestation for any changes to the treatment plan Discharge Exam cardiac is regular no murmurs lungs are clear ext with trace b/l edema Discharge Data Allergies Allergy/AdvReac Type Severity Reaction Status Date / Time red dye Allergy Severe Anaphylaxis Verified 03/10/23 13:54 Consultations 12/22/23 20:04 ED Decision to Admit Stat 12/22/23 21:20 Consult Cardiology Routine Ordered Studies 12/23/23 17:59 CT thoracic spine wo con Routine Hospital Course (1) RIOS (dyspnea on exertion): pt gets dizzy and short of breath with exertion asymptomatic at rest recently diagnosed with bilateral PE's deconditioning and morbid obesity are part of it, BMI 56 recently started on metoprolol will change to coreg at low dose and stop bladder/ incont, agents -TTE obtained during last admission showed HFpEF, grade I diastolic dysfunction, and increased right ventricular systolic pressure - -Initial high sen trop is WNL x4, felt to be demand ischemia last stay added midodrine for orthostasis -Will consult PT/OT again as she likely needs subacte rehab: awaiting placement -Home Eliquis for DVT PPX (2) VENESSA (acute kidney injury): resolved -Likely due to the daily 10 mg Torsemide she was discharged on, stop altogether -Volume management is difficult with body habitus (3) Postural lightheadedness: -Continues to experience lightheadedness with standing - -Patient continues to be orthostatic. _will consider adding midodrine at a lower dose. -Will require continued coaching regarding positional changes -RICKEY's and abdominal binder will not be possible with her body habitus (4) Pulmonary embolism, bilateral: -Continue Eliquis (5) Diabetes mellitus, type 2: -Hold metformin for now -Monitor BSG ACHS goal is 110-140 -Start CF of 50 for now, hold carb ratio -HH/DMII diet -Hold basal insulin for now (6) Cirrhosis: -Stable -Continue to monitor volume status (7) Ileostomy in place: -Conitnue ostomy care continue po antibiotics for abdominal fistulae (8) Hypothyroidism: -Conitune levothyroxine (9) Abnormal finding on imaging: -On CTA of chest from last admission, report noting a 4.6 cm calcified extra- axial lesion in the left aspect of the thoracic spinal canal at T6-T7. This severely effaces the thecal sac, and could represent iatrogenic change or possibly a calcified extra-axial mass lesion such as a meningioma or nerve sheath tumor. Clinical correlation will be required. This is not an acute finding and and should be correlated with any prior outside chest imaging. -Nonemergent follow up with neurology is advised. Repeat thoracic CT shows the same type of abnormalities. 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 Discharge Plan Discharge Items Patient Disposition: Transfer Custodial Fac Reason For Visit: SOB/RIOS Discharge Diagnosis: SOB Activity: Resume your previous activity Non-emergency contact: Primary Care Provider Call non-emergency contact if: you have any medication questions Follow-up/Referrals: Tanisha Reyes MD [Primary Care Provider] - Diet: Carb Consistent or DM2 and Low Sodium (2gm) Addtl Attending Provider Instructions: Recommend close followup with PCP in 1-2 weeks. Call your Primary Care doctor if any of the following symptoms or problems start or get worse: * Shortness of breath or difficulty breathing * Wake up at night short of breath * Chest pain * Cough * Swelling of your hands, feet, or legs * More fatigued or tired with your normal activity * Palpitations - sudden fast heart beats WEIGHT * Weigh yourself every morning after using the bathroom. * Use the same scale. * Wear the same amount of clothing. * Write your weight down on a chart. * Call your Primary Care doctor if you gain more than 2-3 pounds in 1-2 days. MEDICATIONS * Use this discharge instruction sheet for medication instructions. * Take your medications at the time your doctor ordered. * Do not skip a dose of your medicines. * If you miss a dose of medicine, take it as soon as possible, but DO NOT DOUBLE A DOSE. * Read your medicine information when you get home. * Know all of the side effects of your medicine. If in doubt, ask your pharmacist * Call your Primary Care doctor's office if you have any side effects. * Be sure all of your doctors know what medicine and herbs you take (including cold, flu, and herbal medicine). Take the following with you to your follow-up doctor appointments: * Weight Chart * Medication List * List of questions Do not drink excessive alcohol, beer or wine. Pending Studies at Discharge: No Stand-Alone Forms: [employer] Skilled Items Patient informed of condition?: Yes DNR: No Discharge Level of Care: Skilled Communicable Disease: No Discharge Prognosis: Stable Lines: None Urinary Catheter: No Medications and DC Order Prescriptions: New metronidazole 500 mg Tablet 500 mg PO TID Qty: 90 0RF ciprofloxacin HCl 500 mg Tablet 500 mg PO BID Qty: 60 0RF carvedilol 3.125 mg Tablet 3.125 mg PO BIDM Qty: 60 0RF midodrine 2.5 mg tablet 2.5 mg PO TID Qty: 90 0RF Rx Instructions: do not give last dose of day after 6PM or within 4 hrs of bedtime Continued levothyroxine 200 mcg Tablet 200 mcg PO QAM Patient Comments: takes 200 mcg with 25 mcg for dose of 225 mcg cyanocobalamin (vitamin B-12) [Vitamin B-12] 1,000 mcg Tablet 1,000 mcg PO QAM cholecalciferol (vitamin D3) [Vitamin D3] 50 mcg (2,000 unit) Capsule 50 mcg PO QAM levothyroxine 25 mcg Tablet 25 mcg PO QAM Patient Comments: takes with 200 mcg Eliquis 5 mg tablet 5 mg PO BID Qty: 60 0RF torsemide 10 mg Tablet 10 mg PO DAILY Qty: 30 5RF potassium chloride 20 mEq Tablet Extended Release 20 meq PO DAILY Qty: 30 0RF metformin 500 mg Tablet 500 mg PO BID pravastatin 40 mg Tablet 40 mg PO HS famotidine [Pepcid] 20 mg Tablet 20 mg PO DAILY PRN (Reason: Acid Reflux) Patient Comments: hardly uses Discontinued diclofenac sodium [Voltaren Arthritis Pain] 1 % gel 2 g topical QID Qty: 200 2RF Rx Instructions: apply to single elbow, wrist or hand; for hand includes palm/fingers/back of hand metoprolol tartrate 25 mg Tablet 12.5 mg PO BID Qty: 30 3RF Gemtesa 75 mg Tablet 75 mg PO DAILY Qty: 30 2RF calcium carbonate [Calcium 600] 600 mg calcium (1,500 mg) Tablet 600 mg PO BID Discharge Orders: Discharge Order (Routine); Ordered 12/30/23 Ordered By: Jared Mayo Admission Data Admit Date/Time: 12/22/23 21:18 Attending Provider: Jared Mayo Admit Provider: Duy Yan Primary Care Provider: Tanisha Reyes Other Providers: Duy Yan; Matt Teran; [place]; [facility]; [place]; [facility] Coding Diagnoses RIOS (dyspnea on exertion) R06.09 VENESSA (acute kidney injury) N17.9 Postural lightheadedness R42 Pulmonary embolism, bilateral I26.99 Diabetes mellitus, type 2 E11.9 Cirrhosis K74.[address] Z93.2 Hypothyroidism E03.9 Abnormal finding on imaging R93.89
== END 2023-12-30 17:05 | DRG 640 ==
LOC: ED 17:22 → SUATTDRO 21:18 → EDINP 21:18 → 2W 12-23 00:09

== ENCOUNTER 2024-02-13 15:58 | Observation (INO) ==
[2024-02-13 16:52] LABS: Appearance Urine Clear (Clear); Bacteria Urine Automated 1+ (Negative); Blood Urine Negative (Negative); Color Urine Dark Yellow; Glucose Urine UA Negative (Negative); Ketones Urine Trace (Negative); Leukocyte Esterase Urine Trace (Negative); Nitrite Urine Positive (Negative); Protein Urine 1+ (Negative); RBC Urine Automated 0-4 /hpf (0-4); Specific Gravity Urine 1.019 (1.000-1.030); Urobilinogen Urine Negative (Negative)
[2024-02-13 16:54] LABS: Bilirubin Urine 1+ (Negative)
[2024-02-13] MEDS: SODIUM CHLORIDE 0.9% 1,000 ML IV SCH (16:54)
--- NOTE | 2024-02-13 16:59 | Emergency Department Note ---
Impression & Plan Rhabdomyolysis, Elevated troponin, Fall, Elevated lactic acid level, Acute hip pain ED Provider Note NAME: AARON GIMENEZ AGE: 78 SEX: F : 1945 ARRIVES VIA: Ambulance INFORMANT: Patient, ED PROVIDER(S): Alyse Garcia MD CHIEF COMPLAINT: Fall, found down HPI: This is a 78-year-old female with history of PE, DVT, CHF, diabetes presenting for a fall. Patient states that she thinks she got lightheaded and fell yesterday. She is on Eliquis currently. She does not know if she had any LOC. She appears somewhat confused and history is somewhat limited by this. She tells me that she thinks she was on the ground for about 24 hours. Does not exactly know why she fell but does think it was more lightheadedness/slipping. Otherwise patient does have significant pain in her bilateral hips but worse on her left hip. She notes no sensation issues such as numbness, tingling or paresthesias. ROS: See above HPI for pertinent positives & negatives. A total of 10 systems reviewed and were otherwise negative. PAST MEDICAL HISTORY: See Below PAST SURGICAL HISTORY: See Below FAMILY HISTORY: See Below SOCIAL HISTORY: See Below HOME MEDICATIONS: See Below ALLERGIES: See Below VITALS: See Below PHYSICAL EXAMINATION: General: resting comfortably Head: Normocephalic and atraumatic Eyes: Normal inspection, extraocular muscles intact Ear, nose, throat: Normal external exam Neck: Normal range of motion Respiratory: lungs clear to auscultation bilaterally Cardiovascular: Regular rate/rhythm, no murmur GI: soft, nontender, no guarding or rebound Extremities: Left hip pain with range of motion Neuro: Awake, alert, moves all extremities spontaneously Skin: Warm, dry, and intact MEDICAL DECISION MAKING: This is 78-year-old female with history as above presenting after a fall. Patient is without provide 24 hours. She is back to 94.[address] of the head, C-spine. Will do chest x-ray as well as x-ray of the hip to evaluate for any osseous abnormalities, CHF or pneumonia with recent history. Will do blood work, lactic acid level urinalysis. Due to profound downtime, will do CK as well. -The patient's blood work does reveal a leukocytosis to 19. Also shows creatinine elevation 1.99 with a lactate of 2.1 and elevated troponin. CK is 823. -CT imaging reveals no intracranial or cervical process at this time. -X-rays do not reveal any acute osseous fractures as well. -Chest Xray independently interpreted by me showing no pneumothorax, focal opacity, or pleural effusions. -Hip x-ray as independent interpreted by me does not reveal any acute dislocation or fracture -At this time daughter is concerned patient having depression as well. -Discussed findings with daughter and patient. She is comfortable with admission for current abnormal creatinine, lactic and troponin as well as rhabdomyolysis. -Will admit for these findings Differential diagnosis: Rhabdomyolysis, renal failure, ACS, UTI, intracranial hemorrhage ER treatment provided: See below Diagnostics interpreted by me: ECG: None Cardiac Monitoring: An order was placed for continuous cardiac monitoring. The monitor shows a rate of 96 rhythm. Laboratory studies: As stated above and show below. Imaging studies: See below. 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 Surgical History History of benign breast biopsy History of total left knee replacement (TKR) History of total right knee replacement (TKR) History of gastric bypass History of hernia surgery History of cholecystectomy History of appendectomy History of colonoscopy and ileoscopy History of esophagogastroduodenoscopy (EGD) History of colon resection performed about 20yrs ago d/t ulcerative colitis---has ileostomy History of tooth extraction History of wisdom tooth extraction History of thyroidectomy, total d/t nodules History of bilateral cataract extraction Family History Sister Family history of reaction to anesthesia nausea/vomiting Social History Smoking Status: Never smoker Second Hand Exposure: No; Do You Dip or Chew Tobacco: No; Hx Alcohol Use: No Hx Substance Use: No Preferred Language: Latvian Communication Ability: Effective Airplane Tester Required: No Beliefs That Will Affect Care: None Current Living Situation: Alone Current Living Situation Comment: Chickens Other Information That Helps Us Care for You: No Feels Safe at Home: Yes Safety Concerns: Feels Safe At This Time Assistive Devices: Glasses and Walker Allergies Allergies Allergy/AdvReac Type Severity Reaction Status Date / Time red dye Allergy Severe Anaphylaxis Verified 02/13/24 17:07 Home Meds Home Medications Medication Instructions Recorded Confirmed famotidine 20 mg tablet (Pepcid) 20 mg PO DAILY PRN Acid Reflux 09/18/22 02/13/24 metformin 500 mg tablet 500 mg PO BID 09/18/22 02/13/24 pravastatin 40 mg tablet 40 mg PO HS 09/18/22 02/13/24 levothyroxine 200 mcg tablet 200 mcg PO DAILYBB 12/03/22 02/13/24 cholecalciferol (vitamin D3) 50 50 mcg PO QAM 02/27/23 02/13/24 mcg (2,000 unit) capsule (Vitamin D3) cyanocobalamin (vitamin B-12) 1,000 mcg PO QAM 02/27/23 02/13/24 1,000 mcg tablet (Vitamin B-12) levothyroxine 25 mcg tablet 25 mcg PO DAILYBB 12/07/23 02/13/24 midodrine 2.5 mg tablet 2.5 mg PO TIDM 02/13/24 02/13/24 Previous Rx's Medication Instructions Recorded apixaban 5 mg tablet (Eliquis) 5 mg PO BID #60 tabs 12/09/23 potassium chloride 20 mEq 20 meq PO DAILY takes when taking 12/20/23 tablet,extended release torsemide #30 tabs torsemide 10 mg tablet 10 mg PO DAILY edema in feet #30 12/20/23 tabs carvedilol 3.125 mg tablet 3.125 mg PO BIDM #60 tabs 12/29/23 ciprofloxacin HCl 500 mg tablet 500 mg PO BID #60 tabs 12/29/23 metronidazole 500 mg tablet 500 mg PO TID #90 tabs 12/29/23 Results & Data (ED) Vital Signs Vital Signs - 24 hr 02/13/24 16:12 02/13/24 16:12 03/16/24 16:23 Temperature 34.6 C L 34.6 C L Temperature Source Rectal Rectal Pulse Rate 88 Pulse Rhythm Regular Pulse Strength Normal Respiratory Rate 20 Respiratory Effort / Characteristics Non-Labored Spontaneous Respiratory Depth Normal Respiratory Pattern Regular Blood Pressure 135/91 Blood Pressure Mean 105 Pulse Oximetry 100 100 100 Oxygen Delivery Method Room Air Room Air Room Air Sepsis Recent Fever Within 48 Hours No Sepsis New/Unexplained Change in Mental Status Yes Sepsis Action Taken by Nursing Physician Notified 02/13/24 16:36 02/13/24 18:00 02/13/24 18:00 Temperature 35.9 C L Temperature Source Grover Cath ( Temp Sensing) Pulse Rate 93 H 89 Pulse Rhythm Pulse Strength Respiratory Rate 15 Respiratory Effort / Characteristics Respiratory Depth Respiratory Pattern Blood Pressure 121/90 Blood Pressure Mean 103 Pulse Oximetry 95 Oxygen Delivery Method Room Air Sepsis Recent Fever Within 48 Hours Sepsis New/Unexplained Change in Mental Status Sepsis Action Taken by Nursing Laboratory Data 02/13/24 16:35 02/13/24 16:35 Lab Results 02/13/24 02/13/24 02/13/24 Range/Units 16:30 16:35 18:25 WBC 19.34 H (4.8-10.8) K/ul RBC 4.85 (4.20-5.40) M/uL Hgb 13.9 (12.0-16.0) g/dl Hct 43.0 (37.0-47.0) % MCV 88.7 (80.0-100.0) fL MCH 28.7 (25.0-34.0) pg MCHC 32.3 (32.0-36.0) g/dL RDW Std Deviation 49.4 H (36.4-46.3) fL RDW Coeff of Laurie 15.2 H (11.5-14.5) % Plt Count 302 (130-400) K/uL MPV 11.5 (9.4-12.4) fL Immature Gran % (Auto) 0.8 % Neut % (Auto) 89.9 % Lymph % (Auto) 2.7 % [place] % (Auto) 6.4 % Eos % (Auto) 0.0 % Baso % (Auto) 0.2 % Neut # (Auto) 17.37 H (1.40-6.50) K/uL Lymph # (Auto) 0.53 L (1.20-3.40) K/uL [place] # (Auto) 1.24 H (0.11-0.59) K/uL Eos # (Auto) 0.00 (0.00-0.50) K/uL Baso # (Auto) 0.04 (0.00-0.20) K/uL Immature Gran # (Auto) 0.16 (0.01-0.20) K/uL Sodium 140 (136-145) mmol/L Potassium 3.7 (3.5-5.1) mmol/L Chloride 101 (98-107) mmol/L Carbon Dioxide 24 (21-32) mmol/L Anion Gap 15 H (3-11) BUN 67 H (6-23) mg/dl Creatinine 1.99 H (0.6-1.2) mg/dl Est Cr Clr Drug Dosing 37.4 ml/min Est GFR ( Amer) 27.6 ml/min Est GFR (Non-Af Amer) 23.8 ml/min BUN/Creatinine Ratio 33.7 H (10-20) Glucose 225 H (70-99(Fasting)) mg/dl Lactate 2.1 H* (0.4-2.0) mmol/L Calcium 9.5 (8.6-10.3) mg/dl Magnesium 1.8 (1.7-2.4) mg/dl Total Bilirubin 0.8 (0.2-1.0) mg/dl AST 28 (13-39) U/L ALT 18 (7-52) U/L Alkaline Phosphatase 92 (34-104) U/L Total Creatine Kinase 823 H (26-192) U/L Troponin I High Sens 87.0 H* 102.2 H* (0-14) pg/ml Total Protein 8.0 (6.0-8.3) gm/dl Albumin 4.1 (3.4-5.0) gm/dl Globulin 3.9 (2.5-4.0) gm/dl Albumin/Globulin Ratio 1.1 (0.9-2) Lipase 33 (11-82) U/L TSH 0.415 (0.300-4.500) uIu/ml Urine Color Dark Yellow Urine Appearance Clear (Clear) Urine pH 5.0 (4.5-7.5) Ur Specific [place] 1.019 (1.000-1.030) Urine Protein 1+ H (Negative) Urine Glucose (UA) Negative (Negative) Urine Ketones Trace H (Negative) Urine Blood Negative (Negative) Urine Nitrite Positive A (Negative) Urine Bilirubin 1+ H (Negative) Urine Urobilinogen Negative (Negative) Ur Leukocyte Esterase Trace H (Negative) Urine WBC (Auto) 1-5 (0-5) /hpf Urine RBC (Auto) 0-4 (0-4) /hpf U Hyaline Cast (Auto) 5-10 H (0-5) /lpf U Epithel Cells (Auto) 5-10 H (0-5) /lpf Urine Bacteria (Auto) 1+ H (Negative) 02/13/24 Range/Units 18:50 WBC (4.8-10.8) K/ul RBC (4.20-5.40) M/uL Hgb (12.0-16.0) g/dl Hct (37.0-47.0) % MCV (80.0-100.0) fL MCH (25.0-34.0) pg MCHC (32.0-36.0) g/dL RDW Std Deviation (36.4-46.3) fL RDW Coeff of Laurie (11.5-14.5) % Plt Count (130-400) K/uL MPV (9.4-12.4) fL Immature Gran % (Auto) % Neut % (Auto) % Lymph % (Auto) % [place] % (Auto) % Eos % (Auto) % Baso % (Auto) % Neut # (Auto) (1.40-6.50) K/uL Lymph # (Auto) (1.20-3.40) K/uL [place] # (Auto) (0.11-0.59) K/uL Eos # (Auto) (0.00-0.50) K/uL Baso # (Auto) (0.00-0.20) K/uL Immature Gran # (Auto) (0.01-0.20) K/uL Sodium (136-145) mmol/L Potassium (3.5-5.1) mmol/L Chloride (98-107) mmol/L Carbon Dioxide (21-32) mmol/L Anion Gap (3-11) BUN (6-23) mg/dl Creatinine (0.6-1.2) mg/dl Est Cr Clr Drug Dosing ml/min Est GFR ( Amer) ml/min Est GFR (Non-Af Amer) ml/min BUN/Creatinine Ratio (10-20) Glucose (70-99(Fasting)) mg/dl Lactate 2.1 H* (0.4-2.0) mmol/L Calcium (8.6-10.3) mg/dl Magnesium (1.7-2.4) mg/dl Total Bilirubin (0.2-1.0) mg/dl AST (13-39) U/L ALT (7-52) U/L Alkaline Phosphatase (34-104) U/L Total Creatine Kinase (26-192) U/L Troponin I High Sens (0-14) pg/ml Total Protein (6.0-8.3) gm/dl Albumin (3.4-5.0) gm/dl Globulin (2.5-4.0) gm/dl Albumin/Globulin Ratio (0.9-2) Lipase (11-82) U/L TSH (0.300-4.500) uIu/ml Urine Color Urine Appearance (Clear) Urine pH (4.5-7.5) Ur Specific [place] (1.000-1.030) Urine Protein (Negative) Urine Glucose (UA) (Negative) Urine Ketones (Negative) Urine Blood (Negative) Urine Nitrite (Negative) Urine Bilirubin (Negative) Urine Urobilinogen (Negative) Ur Leukocyte Esterase (Negative) Urine WBC (Auto) (0-5) /hpf Urine RBC (Auto) (0-4) /hpf U Hyaline Cast (Auto) (0-5) /lpf U Epithel Cells (Auto) (0-5) /lpf Urine Bacteria (Auto) (Negative) Administered Medications Acetaminophen (Acetaminophen 325 Mg Tab) 650 mg PO Q4H PRN PRN Reason: Pain or Fever Stop: 03/14/24 21:29 Last Admin: 02/13/24 23:27 Dose: 650 mg Documented By: EARL Apixaban (Apixaban 5 Mg Tablet) 5 mg PO BID [facility] Stop: 03/14/24 21:29 Last Admin: 02/13/24 23:25 Dose: 5 mg Documented By: EARL Ceftriaxone Sodium 2,000 mg/ (Dextrose) 50 mls @ 100 mls/hr IV Q24H [facility]; Protocol Stop: 02/18/24 19:59 Last Infusion: 02/13/24 23:22 Dose: Infused Documented By: Admin: 02/13/24 21:33 Dose: 100 mls/hr Documented By: JONATHON Insulin Aspart (Insulin Aspart Per Unit Charge) 0 units SC ACHS AILIN Stop: 03/14/24 20:59 Last Admin: 02/13/24 21:56 Dose: 1 units Documented By: JONATHON Co-signed By: MED Discontinued Medications Sodium Chloride (Nss) 1,000 mls @ 999 mls/hr IV .Q1H1M AILIN Stop: 02/13/24 17:30 Last Infusion: 02/13/24 19:49 Dose: Infused Documented By: Admin: 02/13/24 16:54 Dose: 999 mls/hr Documented By: ALEJANDRO Parenteral Electrolytes (Plasma-Lyte A Ph 7.4) 500 mls @ 999 mls/hr IV .Q31M ONE Stop: 02/13/24 19:59 Last Infusion: 02/13/24 21:31 Dose: Infused Documented By: Admin: 02/13/24 19:50 Dose: 999 mls/hr Documented By: JONATHON Ondansetron HCl (Ondansetron Inj 2 Mg/Ml 2 Ml Vial) 4 mg IV NOW STA Stop: 02/13/24 21:39 Last Admin: 02/13/24 21:57 Dose: 4 mg Documented By: JONATHON Imaging Data Radiologist's Impression: Cervical Spine CT 02/13/24 16:24 CT OF THE CERVICAL SPINE WITHOUT CONTRAST CLINICAL HISTORY: Trauma COMPARISON STUDY: No previous studies for comparison. TECHNIQUE: Helical axial images of the cervical spine were obtained without IV contrast. Sagittal and coronal reconstructions were viewed. Automated exposure control was utilized for the study. A dose lowering technique was utilized adhering to the principles of ALARA. FINDINGS: There is mild reversal of the cervical lordosis. No cervical spine fracture is identified although this exam is mildly compromised by artifact. Moderate multilevel disc space narrowing, facet arthrosis and osteophytosis is present. No prevertebral edema is identified. IMPRESSION: 1. No acute cervical spine fracture or subluxation. Exam mildly compromised by artifact. 2. Moderate multilevel degenerative disc disease and facet arthrosis within the cervical spine. ACT 112: Negative or not required by law. Electronically signed by: Pool Marie M.D. 02/13/2024 5:16 PM Chest X-Ray 02/13/24 16:24 SUPINE PORTABLE AP CHEST RADIOGRAPH CLINICAL HISTORY: Fall COMPARISON STUDY: Chest CT December 07, 2023. Chest radiograph December 22, 2023. FINDINGS: Lung volumes are normal. Lungs are clear. There is no pneumothorax or pleural effusion is identified on supine exam. Cardiomegaly is unchanged. Mediastinal contours are normal. There is no evidence for pulmonary edema. IMPRESSION: No acute cardiopulmonary findings. ACT 112: Negative or not required by law. Electronically signed by: Pool Marie M.D. 02/13/2024 4:[address] 02/13/24 16:24 CT OF THE HEAD WITHOUT CONTRAST CLINICAL HISTORY: Trauma COMPARISON STUDY: No previous studies for comparison. TECHNIQUE: Helical axial images of the head were obtained without IV contrast. Automated exposure control was utilized for the study. A dose lowering technique was utilized adhering to the principles of ALARA. FINDINGS: No acute intracranial hemorrhage, midline shift or mass effect is present. The ventricular system is unremarkable. The basal cisterns are patent. No extra-axial collections are present. There are no findings to suggest acute dural sinus thrombosis or acute territorial infarct. Suspected left posterior scalp contusion is present. There is no calvarial fracture. IMPRESSION: 1. No acute intracranial findings. 2. No calvarial fractures. ACT 112: Negative or not required by law. Electronically signed by: Pool Marie M.D. 02/13/2024 5:10 PM Hip/Pelvis X-Ray 02/13/24 16:34 XR hip LT 2V w pelvis CLINICAL HISTORY: Left hip pain following fall. COMPARISON: Left hip radiographs January 14, 2023. CT enterography May 06, 2023. FINDINGS: Pelvic surgical clips and a right lower quadrant ostomy are incidentally noted. Sacroiliac joints and symphysis pubis are intact. There is no acute fracture within the pelvis or hips. There is moderate to severe right and moderate left hip osteoarthritis, greater on the right. IMPRESSION: 1. No fractures within the pelvis or hips. 2. Moderate to severe right and moderate left hip osteoarthritis. ACT 112: Negative or not required by law. Electronically signed by: Pool Marie M.D. 02/13/2024 5:00 PM Elbow X-Ray 02/13/24 16:35 XR elbow RT min 3V routine CLINICAL HISTORY: fall COMPARISON: None FINDINGS: This exam is mildly compromised given difficulty positioning. Alignment of the right elbow appears anatomic. There is no evidence for a joint effusion. There is no fracture. IV within the antecubital fossa is incidentally noted. 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 IMPRESSION: No fractures within the right elbow. No evidence for a joint effusion. ACT 112: Negative or not required by law. Electronically signed by: Pool Marie M.D. 02/13/2024 5:07 PM Discharge Plan Visit Data Chief Complaint: Fall Stated Complaint: FALL, BACK PAIN, ED Provider: Alyse Garcia Discharge Problem: Rhabdomyolysis, Elevated troponin, Fall, Elevated lactic acid level, Acute hip pain Discharge Instructions Interventions: ED Discharge Assessment Last Done: 02/13/24 21:30
[2024-02-13 17:00] LABS: Basophils # (auto) 0.04 K/uL (0.00-0.20); Basophils % (auto) 0.2 %; Hemoglobin 13.9 g/dl (12.0-16.0); Immature Granulocytes # (auto) 0.16 K/uL (0.01-0.20); Immature Granulocytes % (auto) 0.8 %; Lymphocytes # (auto) 0.53 K/uL (1.20-3.40); Lymphocytes % (auto) 2.7 %; Mean Corpuscular Hemoglobin 28.7 pg (25.0-34.0); Mean Corpuscular Hgb Conc 32.3 g/dL (32.0-36.0); Mean Corpuscular Volume 88.7 fL (80.0-100.0); Mean Platelet Volume 11.5 fL (9.4-12.4); Monocytes # (auto) 1.24 K/uL (0.11-0.59); Monocytes % (auto) 6.4 %; Neutrophils # (auto) 17.37 K/uL (1.40-6.50); Neutrophils % (auto) 89.9 %; Platelet Count 302 K/uL (130-400); RDW Coefficient of Variation 15.2 % (11.5-14.5); RDW Standard Deviation 49.4 fL (36.4-46.3); Red Blood Count 4.85 M/uL (4.20-5.40); White Blood Count 19.34 K/ul (4.8-10.8)
--- NOTE | 2024-02-13 17:00 | XRay Report ---
SUPINE PORTABLE AP CHEST RADIOGRAPH CLINICAL HISTORY: Fall COMPARISON STUDY: Chest CT December 07, 2023. Chest radiograph December 22, 2023. FINDINGS: Lung volumes are normal. Lungs are clear. There is no pneumothorax or pleural effusion is i dentified on supine exam. Cardiomegaly is unchanged. Mediastinal contours are normal. There is no ravi dence for pulmonary edema. IMPRESSION: No acute cardiopulmonary findings. ACT 112: Negative or not required by law. Electronically signed by: Pool Marie M.D. 02/13/2024 4:58 PM
--- NOTE | 2024-02-13 17:08 | XRay Report ---
XR elbow RT min 3V routine CLINICAL HISTORY: fall COMPARISON: None FINDINGS: This exam is mildly compromised given difficulty positioning. Alignment of the right elbow appears anatomic. There is no evidence for a joint effusion. There is no fracture. IV within the ant ecubital fossa is incidentally noted. 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 IMPRESSION: No fractures within the right elbow. No evidence for a joint effusion. ACT 112: Negative or not required by law. Electronically signed by: Pool Marie M.D. 02/13/2024 5:07 PM
--- NOTE | 2024-02-13 17:11 | CT Scan Report ---
CT OF THE HEAD WITHOUT CONTRAST CLINICAL HISTORY: Trauma COMPARISON STUDY: No previous studies for comparison. TECHNIQUE: Helical axial images of the head were obtained without IV contrast. Automated exposure con trol was utilized for the study. A dose lowering technique was utilized adhering to the principles o f ALARA. FINDINGS: No acute intracranial hemorrhage, midline shift or mass effect is present. The ventricular system is unremarkable. The basal cisterns are patent. No extra-axial collections are present. There are no findings to suggest acute dural sinus thrombosis or acute territorial infarct. Suspected left posterior scalp contusion is present. There is no calvarial fracture. IMPRESSION: 1. No acute intracranial findings. 2. No calvarial fractures. ACT 112: Negative or not required by law. Electronically signed by: Pool Marie M.D. 02/13/2024 5:10 PM
[2024-02-13 17:15] LABS: Albumin Globulin Ratio 1.1 (0.9-2); Albumin Level 4.1 gm/dl (3.4-5.0); BUN Creatinine Ratio 33.7 (10-20); Bilirubin,Total 0.8 mg/dl (0.2-1.0); Calcium 9.5 mg/dl (8.6-10.3); Creatinine Clr Calc Pharmacy 37.4 ml/min; Est GFR (African American) 27.6 ml/min; Est GFR (Non-African American) 23.8 ml/min; Globulin 3.9 gm/dl (2.5-4.0); Magnesium 1.8 mg/dl (1.7-2.4); Potassium 3.7 mmol/L (3.5-5.1)
--- NOTE | 2024-02-13 17:18 | CT Scan Report ---
CT OF THE CERVICAL SPINE WITHOUT CONTRAST CLINICAL HISTORY: Trauma COMPARISON STUDY: No previous studies for comparison. TECHNIQUE: Helical axial images of the cervical spine were obtained without IV contrast. Sagittal a nd coronal reconstructions were viewed. Automated exposure control was utilized for the study. A do se lowering technique was utilized adhering to the principles of ALARA. FINDINGS: There is mild reversal of the cervical lordosis. No cervical spine fracture is identified a lthough this exam is mildly compromised by artifact. Moderate multilevel disc space narrowing, facet arthrosis and osteophytosis is present. No prevertebral edema is identified. IMPRESSION: 1. No acute cervical spine fracture or subluxation. Exam mildly compromised by artifact. 2. Moderate multilevel degenerative disc disease and facet arthrosis within the cervical spine. ACT 112: Negative or not required by law. Electronically signed by: Pool Marie M.D. 02/13/2024 5:16 PM
[2024-02-13 17:31] LABS: Thyroid Stimulating Hormone 0.415 uIu/ml (0.300-4.500)
--- NOTE | 2024-02-13 18:22 | History & Physical Report ---
Date of Service February 13, 2024 Assessment & Plan (1) Fall: Plan: Patient found on the ground by her daughter on 02/12; on ground for unknown length of time after fall, but likely ~24 hours (last medicines were taken 02/11 at noon) Hypothermic at 34.6 C on arrival Total creatinine kinase elevated at 823 H&H WNL No signs of active bleeding on clinical exam Head CT revealed no acute findings C-spine CT revealed no acute finding Hip/pelvic x-ray without fractures, but noted moderate to severe right/left hip osteoarthritis Right elbow x-ray without fractures Lactate elevated at 2.1, repeat pending Acetaminophen as needed for left hip pain Fall precautions PT/OT consulted Case management consult for rehab planning A.m. CBC, BMP, mag, lactate, troponin, and CK levels (2) Rhabdomyolysis: Plan: Hold pravastatin IVF with NSS 1000mL + Plasma-Lyte 500mL in the ED Assess a.m. volume status, and continue maintenance fluids pending CK level (in setting of CHF) (3) UTI (urinary tract infection): Plan: Patient was finishing up a course of ciprofloxacin outpatient UA mildly positive on arrival; no WBCs Leukocytosis at 19.34 with neutrophil predominance Rocephin 2000 mg IV q24h Follow UCx; no prior for comparison (4) VENESSA (acute kidney injury): Plan: BUN 67, creatinine 1.99 (baseline 1.17), and EGFR 23.8 Avoid nephrotoxic agents Likely secondary to rhabdomyolysis/UTI IVF and ABX (as above) (5) Depression: Plan: Per daughter, patient has been increasingly apathetic/depressed of late; loss of appetite; concerned that she may have fallen and chosen not to get back up Not currently on antidepressants; QTc 502 on arrival, will repeat a.m. EKG Patient is amenable to seeing psychiatry while inpatient (6) Diabetes mellitus, type 2: Plan: Last A1c at 6.5% on 12/08/2023 Glucose 225 on admission Hold metformin Will hold off on basal insulin in the setting of VENESSA SSI; with target BSG range 110-140mg/dL, CF 30, carb ratio 10 T2DM diet BSG ACHS Adjust regimen as needed (7) CHF (congestive heart failure): Plan: Last echo on 12/23/2023 revealed LVEF at 50-55% Hold torsemide and potassium supplementation for now (8) Elevated troponin: Plan: Elevated at 87.0 on arrival, repeat pending EKG on arrival revealed A-fib at 85 bpm; QTc 502; no prior EKG showed A-fib, repeat EKG pending Clinically, patient denies chest pain, SOB, chest palpitations, or pleuritic CP Limited echo ordered to assess for wall motion changes Continuous monitoring tech (9) Ileostomy in place: Plan: Daily ostomy care Plan Disposition: Admit to [facility] telemetry DNR/DNI AHA, T2DM diet VTE PPx: On Eliquis History of Present Illness Chief Complaint: Fall Primary Care Provider: Tanisha Reyes MD Symone is a 78-year-old female with PMH of Crohn's disease s/p total proctocolectomy, colostomy status, T2DM, CESAR, GERD, cirrhosis, CHF, and DVT (on Eliquis). She presented via EMS after being found by her daughter laying on the floor on 02/12. Patient reports that she fell after lunch on 02/11, and was down for approximately 18-24 hours. She reports that she was feeling dizzy/lightheaded prior to falling. No LOC. No head strike. On Eliquis for DVT PPx in A-fib. She uses a walker for ambulation at baseline did not trip on anything. She reports that she struck her left hip and has been having some mild left hip pain. No radiation down the leg. She reports she was unable to stand after she fell. She has fallen in the past, but not recently. Patient last took her medications around lunchtime on 02/11; her daughter helps to manage the medications by putting them in a pillbox. Patient's daughter does note that they changed up her blood pressure medications upon discharge from rehab after her last hospital stay; they have been having difficulty with managing her fluids (history of CHF) also managing dizziness. Daughter reports that she is still taking midodrine. No sick contacts. No supplemental oxygen at home. Patient's vitals are stable at time of admission. ED course: NSS 1000 mL IV ROS: Patient endorses sweating, new back pain, nausea/dry heaves, vomiting x 2 (felt like she spit something up) Patient denies fever, chills, body aches, CP, chest palpitations, SOB, cough, diarrhea, urinary s/s, burning with urination, blood in the urine/stool, N/T/pain in legs. Spoke to patient's daughter outside of room following admission. Patient's daughter reports that her mom has been feeling increasingly lethargic, apathetic, and depressed over the past few months. She reports that during her last rehab stay, PT reported that she was "her own worst enemy" and was uninterested about participating in her care. She also notes that the patient has not been eating, and throwing up food. Will consult case management for depression, and potential placement. Dr. Conti spoke to the patient following admission, and patient reported she was amenable to seeing psychiatry while inpatient. Allergies Allergy/AdvReac Type Severity Reaction Status Date / Time red dye Allergy Severe Anaphylaxis Verified 02/13/24 17:07 Home Medications Medication Instructions Recorded Confirmed Type famotidine 20 mg tablet (Pepcid) 20 mg PO DAILY PRN Acid Reflux 09/18/22 02/13/24 History metformin 500 mg tablet 500 mg PO BID 09/18/22 02/13/24 History pravastatin 40 mg tablet 40 mg PO HS 09/18/22 02/13/24 History levothyroxine 200 mcg tablet 200 mcg PO DAILYBB 12/03/22 02/13/24 History cholecalciferol (vitamin D3) 50 50 mcg PO QAM 02/27/23 02/13/24 History mcg (2,000 unit) capsule (Vitamin D3) cyanocobalamin (vitamin B-12) 1,000 mcg PO QAM 02/27/23 02/13/24 History 1,000 mcg tablet (Vitamin B-12) levothyroxine 25 mcg tablet 25 mcg PO DAILYBB 12/07/23 02/13/24 History apixaban 5 mg tablet (Eliquis) 5 mg PO BID #60 tabs 12/09/23 02/13/24 Rx potassium chloride 20 mEq 20 meq PO DAILY takes when taking 12/20/23 02/13/24 Rx tablet,extended release torsemide #30 tabs torsemide 10 mg tablet 10 mg PO DAILY edema in feet #30 12/20/23 02/13/24 Rx tabs carvedilol 3.125 mg tablet 3.125 mg PO BIDM #60 tabs 01/30/24 03/16/24 Rx ciprofloxacin HCl 500 mg tablet 500 mg PO BID #60 tabs 12/29/23 02/13/24 Rx metronidazole 500 mg tablet 500 mg PO TID #90 tabs 12/29/23 02/13/24 Rx midodrine 2.5 mg tablet 2.5 mg PO TIDM 02/13/24 02/13/24 History Past Med/Surg History Medical History (Updated 02/13/24 @ 19:52 by Caleb Beltran PA-C) Morbid obesity with BMI of 50.0-59.9, adult Osteoarthritis Ileostomy in place Ulcerative colitis Hypothyroidism Diabetes mellitus, type 2 on metformin daily History of pulmonary embolism "at least 10yrs ago"--unknown cause, was on blood thinners, but then taken off--per pt no issues currently Heart murmur follows with PCP--no assistant producer Surgical History History of benign breast biopsy History of total left knee replacement (TKR) History of total right knee replacement (TKR) History of gastric bypass History of hernia surgery History of cholecystectomy History of appendectomy History of colonoscopy and ileoscopy History of esophagogastroduodenoscopy (EGD) History of colon resection performed about 20yrs ago d/t ulcerative colitis---has ileostomy History of tooth extraction History of wisdom tooth extraction History of thyroidectomy, total d/t nodules History of bilateral cataract extraction Family History Sister Family history of reaction to anesthesia nausea/vomiting Social History Smoking Status: Never smoker Second Hand Exposure: No; Do You Dip or Chew Tobacco: No; Hx Alcohol Use: No Hx Substance Use: No Preferred Language: Japanese Communication Ability: Effective Retail Services Professional Required: No Beliefs That Will Affect Care: None Current Living Situation: Alone Current Living Situation Comment: Chickens Feels Safe at Home: Yes Assistive Devices: Glasses and Walker Review of Systems Review of Systems: See HPI above Physical Exam Physical Exam: General: no acute distress; lethargic; apathetic; non-toxic appearing; well- nourished; cooperative HEENT: normocephalic, atraumatic; no scleral icterus; PERRLA w/ EOMs intact; moist mucus membrane; vision and hearing grossly intact Neck: supple; THROAT: No sore throat, difficulty swallowing, or hoarseness. JVD; no lymphadenopathy; trachea midline Skin: warm, dry without signs of tenting; no cyanosis; no rashes, bruising, lesions, or erythema noted CV: chest wall NTP; irregularly irregular rhythm; S1/S2 normal; no murmurs/rubs/gallops; pulses intact and symmetric at radial, DP, and PT Lungs: no acute respiratory distress; symmetrical chest wall expansion; clear breath sounds across all lung shultz w/o adventitious sounds; no wheezing ABD: Soft, NTP; BS present; no rebound/guarding; no ascites; no distention; negative CVA tenderness MSK: no tics or fasciculations; significant nonpitting edema noted in the LEs b/l, nonerythematous : Grover draining dark yellow urine Neuro: A&Ox3; normal mood and affect; fluent speech; no focal deficits; sensation grossly intact in the LEs b/l Results & Data Results & Data Vital Signs (Past 12 Hours) Vital Signs Temp Pulse Resp BP Pulse Ox O2 Del Method 02/13/24 18:00 89 15 121/90 95 Room Air 02/13/24 16:36 93 H 02/13/24 16:23 100 Room Air 02/13/24 16:12 34.6 C L 100 Room Air 02/13/24 16:12 34.6 C L 88 20 135/91 100 Room Air Laboratory Results Abnormal lab results 02/13/24 02/13/24 Range/Units 16:30 16:35 WBC 19.34 H (4.8-10.8) K/ul RDW Std Deviation 49.4 H (36.4-46.3) fL RDW Coeff of Laurie 15.2 H (11.5-14.5) % Neut # (Auto) 17.37 H (1.40-6.50) K/uL Lymph # (Auto) 0.53 L (1.20-3.40) K/uL [place] # (Auto) 1.24 H (0.11-0.59) K/uL Anion Gap 15 H (3-11) BUN 67 H (6-23) mg/dl Creatinine 1.99 H (0.6-1.2) mg/dl BUN/Creatinine Ratio 33.7 H (10-20) Glucose 225 H (70-99(Fasting)) mg/dl Lactate 2.1 H* (0.4-2.0) mmol/L Total Creatine Kinase 823 H (26-192) U/L Troponin I High Sens 87.0 H* (0-14) pg/ml Urine Protein 1+ H (Negative) Urine Ketones Trace H (Negative) Urine Nitrite Positive A (Negative) Urine Bilirubin 1+ H (Negative) Ur Leukocyte Esterase Trace H (Negative) U Hyaline Cast (Auto) 5-10 H (0-5) /lpf U Epithel Cells (Auto) 5-10 H (0-5) /lpf Urine Bacteria (Auto) 1+ H (Negative) Diagnostic Findings Cervical Spine CT 02/13/24 16:24 CT OF THE CERVICAL SPINE WITHOUT CONTRAST CLINICAL HISTORY: Trauma COMPARISON STUDY: No previous studies for comparison. TECHNIQUE: Helical axial images of the cervical spine were obtained without IV contrast. Sagittal and coronal reconstructions were viewed. Automated exposure control was utilized for the study. A dose lowering technique was utilized adhering to the principles of ALARA. FINDINGS: There is mild reversal of the cervical lordosis. No cervical spine fracture is identified although this exam is mildly compromised by artifact. Moderate multilevel disc space narrowing, facet arthrosis and osteophytosis is present. No prevertebral edema is identified. IMPRESSION: 1. No acute cervical spine fracture or subluxation. Exam mildly compromised by artifact. 2. Moderate multilevel degenerative disc disease and facet arthrosis within the cervical spine. ACT 112: Negative or not required by law. Electronically signed by: Pool Marie M.D. 02/13/2024 5:16 PM Chest X-Ray 02/13/24 16:24 SUPINE PORTABLE AP CHEST RADIOGRAPH CLINICAL HISTORY: Fall COMPARISON STUDY: Chest CT December 07, 2023. Chest radiograph December 22, 2023. FINDINGS: Lung volumes are normal. Lungs are clear. There is no pneumothorax or pleural effusion is identified on supine exam. Cardiomegaly is unchanged. Mediastinal contours are normal. There is no evidence for pulmonary edema. IMPRESSION: No acute cardiopulmonary findings. ACT 112: Negative or not required by law. Electronically signed by: Pool Marie M.D. 02/13/2024 4:[address] 02/13/24 16:24 CT OF THE HEAD WITHOUT CONTRAST CLINICAL HISTORY: Trauma COMPARISON STUDY: No previous studies for comparison. TECHNIQUE: Helical axial images of the head were obtained without IV contrast. Automated exposure control was utilized for the study. A dose lowering technique was utilized adhering to the principles of ALARA. FINDINGS: No acute intracranial hemorrhage, midline shift or mass effect is present. The ventricular system is unremarkable. The basal cisterns are patent. No extra-axial collections are present. There are no findings to suggest acute dural sinus thrombosis or acute territorial infarct. Suspected left posterior scalp contusion is present. There is no calvarial fracture. IMPRESSION: 1. No acute intracranial findings. 2. No calvarial fractures. ACT 112: Negative or not required by law. Electronically signed by: Pool Marie M.D. 02/13/2024 5:10 PM Hip/Pelvis X-Ray 02/13/24 16:34 XR hip LT 2V w pelvis CLINICAL HISTORY: Left hip pain following fall. COMPARISON: Left hip radiographs January 14, 2023. CT enterography May 06, 2023. FINDINGS: Pelvic surgical clips and a right lower quadrant ostomy are incidentally noted. Sacroiliac joints and symphysis pubis are intact. There is no acute fracture within the pelvis or hips. There is moderate to severe right and moderate left hip osteoarthritis, greater on the right. IMPRESSION: 1. No fractures within the pelvis or hips. 2. Moderate to severe right and moderate left hip osteoarthritis. ACT 112: Negative or not required by law. Electronically signed by: Pool Marie M.D. 02/13/2024 5:00 PM Elbow X-Ray 02/13/24 16:35 XR elbow RT min 3V routine CLINICAL HISTORY: fall COMPARISON: None FINDINGS: This exam is mildly compromised given difficulty positioning. Alignm ent of the right elbow appears anatomic. There is no evidence for a joint effusion. There is no fracture. IV within the antecubital fossa is incidentally noted. 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 IMPRESSION: No fractures within the right elbow. No evidence for a joint effusion. ACT 112: Negative or not required by law. Electronically signed by: Pool Marie M.D. 02/13/2024 5:07 PM Code Status & VTE Plan Code Status DNR/DNI (patient exhibits capacity at time of this decision making) VTE Prophylaxis Plan VTE Prophylaxis will be ordered: Yes Supervising Physician Co-Signing Physician Notes Patient seen and examined, chart reviewed, case discussed with Caleb Beltran and I agree with the assessment and plan as above except as otherwise noted Labs and images reviewed Ashley is a 78-year-old female with a history of DVT, DM 2, CHF, troponin, ileostomy, hypothyroid last admitted 12/22/2023 for dyspnea with obesity/deconditioning, recently diagnosed PEs, and postural orthostasis started on midodrine. She presents today with a unwitnessed fall down for an unclear amount of time likely 24 hours and is hypothermic with a leukocytosis and elevated CK on admission. CT of the head, CT C-spine were normal. No hip fracture was noted on hip/pelvis x-ray. Lactate elevated 2.1, received fluids and repeated. Patient has an VENESSA with creatinine of approximately 2 from a baseline of 1.17. Admitting EKG A-fib rate controlled. She has a leukocytosis without left shift. She has been admitted for unwitnessed fall, suspected UTI with an infected appearing UA. She received 1 L fluids rather than sepsis protocol 1908 cc due to history of CHF, patient does not have evidence of pulmonary edema on x-ray. Additional 500 cc of LR ordered on admission for c linical volume to contraction, VENESSA, and mild rhabdo. Patient has been given Rocephin, follow-up cultures. Patient has had multiple medication changes regarding her blood pressure medicines, has had some orthostatic hypotension and weakness however this is also in the setting of suspected UTI. Will continue midodrine and other medicines as noted. Agree with assessment and treatment as above. PG Care Time/CCT Total # of Minutes Spent Total Time Spent with Patient: Total time spent is greater than 50% in coordination of care (as documented) at patient's floor/unit and/or counseling patient: Coding [place] [address] INT INP/OBS CARE 3/75MIN Patient Type Established History Comprehensive Exam Comprehensive Medical Decision Making High Complexity Diagnoses Fall W19.XXXA Rhabdomyolysis M62.82 UTI (urinary tract infection) N39.0 VENESSA (acute kidney injury) N17.9 Depression F32.A Diabetes mellitus, type 2 E11.9 CHF (congestive heart failure) I50.9 Heart failure chronicity: acute Heart failure type: unspecified Elevated troponin R79.[address] Z93.2 (7) CHF (congestive heart failure) Heart failure chronicity: acute Heart failure type: unspecified Qualified Code(s): I50.9 - Heart failure, unspecified
[2024-02-13] MEDS ORDERED: GLUCAGON FOR INJ 1 MG VIAL SQ PRN (19:29)
[2024-02-13] MEDS ORDERED: GLUCOSE 10 TAB/TUBE PO PRN (19:29)
[2024-02-13] MEDS ORDERED: DEXTROSE 50% 50 ML SYRINGE IV PRN (19:29)
[2024-02-13] MEDS ORDERED: GLUCOSE 40% GEL 15 GM TUBE PO PRN (19:29)
[2024-02-13] MEDS ORDERED: CARBOHYDRATES FOR HYPOGLYCEMIA PO PRN (19:29)
[2024-02-13] MEDS: PLASMA-LYTE A 500 ML IV ONE (19:50)
[2024-02-13] MEDS: cefTRIAXone SODIUM 2,000 MG in DEXTROSE 5 % MINI-B 50 ML IV SCH (21:33)
[2024-02-13] MEDS: INSULIN ASPART PER UNIT CHARGE SC SCH (21:56)
[2024-02-13] MEDS: ONDANSETRON INJ 2 MG/ML 2 ML VIAL IV STA (21:57)
[2024-02-13] MEDS: APIXABAN 5 MG TABLET PO SCH (23:25)
[2024-02-13] MEDS: ACETAMINOPHEN 325 MG TAB PO PRN (23:27)
[2024-02-14] MEDS: HYDROmorphone INJ 0.5 MG/0.5 ML SYR IV STA ×2 (01:05→21:19)
[2024-02-14 04:50] LABS: Basophils # (auto) 0.03 K/uL (0.00-0.20); Basophils % (auto) 0.2 %; Hematocrit (blood only) 38.9 % (37.0-47.0); Hemoglobin 12.2 g/dl (12.0-16.0); Immature Granulocytes # (auto) 0.09 K/uL (0.01-0.20); Immature Granulocytes % (auto) 0.6 %; Lymphocytes # (auto) 0.87 K/uL (1.20-3.40); Lymphocytes % (auto) 6.1 %; Mean Corpuscular Hemoglobin 28.3 pg (25.0-34.0); Mean Corpuscular Hgb Conc 31.4 g/dL (32.0-36.0); Mean Corpuscular Volume 90.3 fL (80.0-100.0); Mean Platelet Volume 11.2 fL (9.4-12.4); Monocytes # (auto) 1.35 K/uL (0.11-0.59); Monocytes % (auto) 9.4 %; Neutrophils # (auto) 11.99 K/uL (1.40-6.50); Neutrophils % (auto) 83.7 %; Platelet Count 272 K/uL (130-400); RDW Coefficient of Variation 15.4 % (11.5-14.5); RDW Standard Deviation 50.6 fL (36.4-46.3); Red Blood Count 4.31 M/uL (4.20-5.40); White Blood Count 14.33 K/ul (4.8-10.8)
[2024-02-14 05:01] LABS: BUN Creatinine Ratio 35.9 (10-20); Calcium 8.5 mg/dl (8.6-10.3); Creatinine Clr Calc Pharmacy 47.7 ml/min; Est GFR (Non-African American) 31.9 ml/min; Magnesium 1.9 mg/dl (1.7-2.4)
[2024-02-14 05:12] LABS: Troponin I High Sensitivity 115.4 pg/ml (0-14)
[2024-02-14] MEDS: LEVOTHYROXINE SODIUM 25 MCG TABLET PO SCH (06:02)
[2024-02-14] MEDS: LEVOTHYROXINE SODIUM 200 MCG TABLET PO SCH (06:02)
--- NOTE | 2024-02-14 07:34 | Electrocardiogram Report ---
Test Reason : Blood Pressure : / mmHG Vent. Rate : 085 BPM Atrial Rate : 000 BPM P-R Int : 000 ms QRS Dur : 078 ms QT Int : 422 ms P-R-T Axes : 000 -19 -05 degrees QTc Int : 502 ms Sinus rhythm with premature atrial beats Minimal voltage criteria for LVH, may be normal variant Nonspecific ST and T wave abnormality Abnormal ECG Confirmed by Roosevelt Chang ([id number]) on 02/14/2024 7:33:53 AM Referred By: REFERRED SELF Confirmed By:Geoff Chang
--- NOTE | 2024-02-14 08:14 | XRay Report ---
RIGHT FOOT 2 VIEWS HISTORY: Right foot pain after fall COMPARISON: Right foot radiograph 01/14/2023. FINDINGS: Flexion deformities again noted within the toes resulting in suboptimal evaluation. Diffuse soft tissue swelling within the right foot again noted. There is a large plantar heel spur. Vascular calcifications are present. Degenerative changes again noted most severe at the hindfoot. The bones are osteopenic. No acute fracture or dislocation. No destructive changes to suggest an osteomyelitis. No radiopaque foreign bodies. IMPRESSION: 1. No definite fracture or dislocation within the right foot. 2. Diffuse soft tissue swelling and degenerative changes again noted. ACT 112: Negative or not required by law. Electronically signed by: Caleb Simmons M.D. 02/14/2024 8:13 AM
[2024-02-14] MEDS: carvediloL 3.125 MG TAB PO SCH (09:54)
[2024-02-14] MEDS: MIDODRINE HCL 2.5 MG TAB PO SCH (09:54)
--- NOTE | 2024-02-14 12:18 | Electrocardiogram Report ---
Test Reason : Blood Pressure : / mmHG Vent. Rate : 092 BPM Atrial Rate : 092 BPM P-R Int : 140 ms QRS Dur : 106 ms QT Int : 414 ms P-R-T Axes : 000 -18 095 degrees QTc Int : 511 ms Poor data quality, interpretation may be adversely affected Sinus rhythm with Premature atrial complexes Nonspecific T wave abnormality Abnormal ECG When compared with ECG of 13-FEB-2024 16:05, ST no longer depressed in Anterior leads Confirmed by Roosevelt Chang ([id number]) on 02/14/2024 12:17:55 PM Referred By: REFERRED SELF Confirmed By:Geoff Chang
--- NOTE | 2024-02-14 14:17 | XCELERA ---
[id number]
--- NOTE | 2024-02-14 16:07 | Hospitalist Progress Note ---
Date of Service February 14, 2024 Assessment & Plan (1) Fall: Plan: Patient found on the ground by her daughter on 02/12; on ground for unknown length of time after fall, but likely ~24 hours (last medicines were taken 02/11 at noon) Hypothermic at 34.6 C on arrival, with VENESSA, rhabdo With lower back pain chronic, otherwise no fractures on imaging-head and C-spine CT, Hip/pelvic x-ray without fractures but noted moderate to severe right/left hip osteoarthritis,Right elbow x-ray without fractures Lactate elevated at 2.1, repeat normal Acetaminophen as needed for left hip pain Fall precautions PT/OT consulted (2) Rhabdomyolysis: Plan: CK mildly elevated from being down on ground for 24 hrs, CK 823Hold pravastatin IVF with NSS 1000mL + Plasma-Lyte 500mL in the ED CK now down to 572 no further fluids given due to edema and VENESSA is improving follow CK in AM and resume pravastatin once normalized (3) UTI (urinary tract infection): Plan: UA abnormal on admission Leukocytosis at 19.34 with neutrophil predominance may be from UTI vs stress response from being down for 24 hrs No fever continue Rocephin 2000 mg IV q24h Follow UCx remove Grover to prevent further infection (4) VENESSA (acute kidney injury): Plan: BUN 67, creatinine 1.99 (baseline 1.17) secondary to prerenal cause, hypovolemia from being down without fluids for 24 hrs, possibly some from rhabdo Improved with IVFs Avoid nephrotoxic agents follow BMP (5) Elevated troponin: Plan: Elevated at 87/102/123/115 EKG sinus rhythm with PACs, no ischemic changes denies chest pain, SOB, chest palpitations, or pleuritic CP ECHO here normal, no wall motion abnormalities Continuous equipment monitor phototypesetting-no arrhythmias (6) CHF (congestive heart failure): Plan: Chronic HFpEF, with chronic LE edema from venous stasis and obesity- LVEF at 50- 55% Hold torsemide and potassium supplementation due to VENESSA She requires midodrine for orthostasis and thus her volume status is difficult to manage daily weights, strict I/Os (7) Ileostomy in place: Plan: Daily ostomy care secondary to Crohn's (8) Diabetes mellitus, type 2: Plan: Last A1c at 6.5% on 12/08/2023, glucose here controlled Hold metformin, continue Novolog SSI T2DM diet, BSG ACHS Adjust regimen as needed (9) Pulmonary embolism, bilateral: Plan: diagnosed in Nov 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 continue ELiquis 5mg po bid indefinitely (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 and is on chronic suppressive tx with cipro/flagyl-resume Flagyl which was held on admission, however with prolonged QTc at 500, will hold CIpro for now (11) Depression: Plan: Per daughter, patient has been increasingly apathetic/depressed of late; loss of appetite; concerned that she may have fallen and chosen not to get back up Not currently on antidepressants; QTc 502 Patient is amenable to seeing psychiatry while inpatient, however she then told parole or probation officerpatient relations liaison she did not have any issues and declined Psych consult (12) Hypothyroidism: Plan: TSH 0.415 continue home levothyroxine (13) Postural lightheadedness: Plan: with h/o falls from this continue midodrine started last admission holding torsemide from home (14) Mass of spine: Plan: found on thoracic CT last admission, 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 SHe is very weak and unable to even sit up in bed on her own. Denies CP, SOB, no pain anywhere else. She reports she often feels lightheaded with standing and this is what caused her to fall. Tele with NSR, PVCs, PACs, rates 80-90s Physical Exam Constitutional: + morbidly obese; no acute distress Eyes: + anicteric sclerae Neck: trachea midline, no thyromegaly Respiratory: normal respiratory effort, lungs clear to auscultation Cardiovascular: Rate/Rhythm: regular rate and regular rhythm Heart Sounds: no murmur Extremities: + edema (trace+ edema legs bilat) Chest (Breasts): Chest: normal inspection of chest Gastrointestinal (Abdomen): normal bowel sounds, soft, nontender, no hepatosplenomegaly Musculoskeletal: Extremities: no cyanosis and no clubbing Skin: very dry skin on legs and feet Neurologic: moves all extremities and awake; no focal motor deficits Psychiatric: A+Ox3, euthymic affect Genitourinary: Grover in place Results & Data Results & Data Vital Signs (Past 12 Hours) Vital Signs Temp Pulse Pulse Resp BP BP Pulse Ox 02/14/24 15:38 36.7 C 85 16 104/70 95 02/14/24 11:43 36.5 C 77 18 104/75 95 02/14/24 10:52 88 02/14/24 09:54 90 02/14/24 08:21 02/14/24 07:41 36.4 C L 58 L 18 110/73 94 02/14/24 06:17 02/14/24 05:57 36.6 C 85 16 116/56 L 93 02/14/24 05:54 02/14/24 04:15 37.0 C 107/63 Pulse Ox O2 Del Method O2 Del Method O2 Flow Rate O2 Flow Rate 02/14/24 15:38 Nasal Cannula 2 02/14/24 11:43 Nasal Cannula 2 02/14/24 10:52 02/14/24 09:54 02/14/24 08:21 Nasal Cannula 02/14/24 07:41 Nasal Cannula 2 02/14/24 06:17 Nasal Cannula 2 02/14/24 05:57 Nasal Cannula 2 02/14/24 05:54 93 Nasal Cannula 2 02/14/24 04:15 Laboratory Results CBC, BMP, CK magnesium,troponin, urine cx reviewed PG Care Time/CCT Total # of Minutes Spent Total Time Spent with Patient: Total time spent is greater than 50% in coordination of care (as documented) at patient's floor/unit and/or counseling patient: Coding Level of Care Code 32755 SUB INP/OBS CARE 3/50MIN Diagnoses Fall W19.XXXA Rhabdomyolysis M62.82 UTI (urinary tract infection) N39.0 VENESSA (acute kidney injury) N17.9 Elevated troponin R79.89 CHF (congestive heart failure) I50.9 Heart failure chronicity: acute Heart failure type: unspecified Ileostomy in place Z93.2 Diabetes mellitus, type 2 E11.9 Pulmonary embolism, bilateral I26.99 Abdominal fistula K63.2 Depression F32.A Hypothyroidism E03.9 Postural lightheadedness R42 Mass of spine M89.8X8 (6) CHF (congestive heart failure) Heart failure chronicity: acute Heart failure type: unspecified Qualified Code(s): I50.9 - Heart failure, unspecified
[2024-02-14] MEDS: AMMONIUM LACTATE 12% LOTION 225 GM BTL EXT SCH (18:29)
[2024-02-15] MEDS: FAMOTIDINE 20 MG TAB PO PRN (05:52)
[2024-02-15 06:44] LABS: Basophils # (auto) 0.04 K/uL (0.00-0.20); Basophils % (auto) 0.3 %; Eosinophils # (auto) 0.03 K/uL (0.00-0.50); Eosinophils % (auto) 0.2 %; Hemoglobin 11.2 g/dl (12.0-16.0); Immature Granulocytes % (auto) 0.8 %; Lymphocytes # (auto) 1.14 K/uL (1.20-3.40); Lymphocytes % (auto) 9.2 %; Mean Corpuscular Hemoglobin 29.3 pg (25.0-34.0); Mean Corpuscular Hgb Conc 32.9 g/dL (32.0-36.0); Mean Platelet Volume 11.3 fL (9.4-12.4); Monocytes # (auto) 1.37 K/uL (0.11-0.59); Neutrophils # (auto) 9.76 K/uL (1.40-6.50); Neutrophils % (auto) 78.5 %; Platelet Count 240 K/uL (130-400); RDW Coefficient of Variation 15.5 % (11.5-14.5); Red Blood Count 3.82 M/uL (4.20-5.40); White Blood Count 12.44 K/ul (4.8-10.8)
[2024-02-15 07:06] LABS: Albumin Level 3.4 gm/dl (3.4-5.0); Bilirubin Direct 0.1 mg/dl (0-0.2); Bilirubin,Total 0.5 mg/dl (0.2-1.0); Creatinine Clr Calc Pharmacy 73.8 ml/min; Est GFR (African American) 63.4 ml/min; Est GFR (Non-African American) 54.7 ml/min; Magnesium 1.8 mg/dl (1.7-2.4); Potassium 4.1 mmol/L (3.5-5.1); Total Protein 6.4 gm/dl (6.0-8.3)
[2024-02-15] MEDS: ONDANSETRON INJ 2 MG/ML 2 ML VIAL IV PRN (08:27)
[2024-02-15] MEDS: metroNIDAZOLE 500 MG TAB PO SCH (08:30)
[2024-02-15] MEDS: CYANOCOBALAMIN (B-12) 500 MCG TABLET PO SCH (08:31)
[2024-02-15] MEDS: CHOLECALCIFEROL 25 MCG (1000 UNITS) TAB PO SCH (08:31)
[2024-02-15] MEDS ORDERED: CIPROFLOXACIN 500 MG TAB PO SCH (09:00)
[2024-02-15] MEDS: carvediloL 3.125 MG TAB PO SCH (09:50)
--- NOTE | 2024-02-15 15:15 | Hospitalist Progress Note ---
Date of Service February 15, 2024 Assessment & Plan (1) Fall: Plan: Patient found on the ground by her daughter on 02/12. On ground for unknown length of time after fall, but likely ~24 hours (last medicines were taken 02/11 at noon). Hypothermic at 34.6 C on arrival, with evidence of mild VENESSA, mild rhabdomyolysis. No fractures on imaging-head and C-spine CT, Hip/pelvic x- ray,Right elbow x-ray . Continue PT and OT while hospitalized (2) Rhabdomyolysis: Plan: Mild on admission. Resolving with IV fluids. Serial labs . Statin therapy temporarily on hold (3) UTI (urinary tract infection): Plan: Ruled out. Urine culture negative. Rocephin discontinued (4) VENESSA (acute kidney injury): Plan: Mild on admission. Resolved with IV fluids. Monitor intake and output. Serial labs (5) Elevated troponin: Plan: Mild on admission. No acute EKG changes. No chest pain. No regional wall motion abnormality seen on cardiac echo. (6) CHF (congestive heart failure): Plan: History of chronic diastolic CHF. No current exacerbation. Monitor intake and output. (7) Ileostomy in place: Plan: Daily ostomy care. Secondary to Crohn's (8) Diabetes mellitus, type 2: Plan: Last A1c at 6.5% on 12/08/2023. ADA diet. Sliding scale coverage. Metformin restarted today, February 14 (9) Pulmonary embolism, bilateral: Plan: Has occurred twice in the past. 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 Continue current thyroid replacement (13) Postural lightheadedness: Plan: Stable. 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 Ortho spine recommended repeat imaging in 3 months per PCP Plan Anticipate need for rehab placement at discharge later this week Admission and Anticipated Discharge Date Admission Date: February 13, 2024 Subjective Alert and oriented. Flat affect. I spoke to the daughter Sherrie, by phone today and gave her an update. I explained that she probably will need rehab placement for a while at discharge. Urine culture is negative. Rocephin discontinued. Coreg and metformin have been restarted. She has some nausea and I suspect an underlying viral illness. She has had previous cholecystectomy. She remains on Eliquis due to her past history of pulmonary embolism. Review of Systems 2 Review of Systems: Constitutional-no fever or chills ENT-no blurred vision, no double vision, no epistaxis, no sore throat Respiratory-no cough, no wheezing, no shortness of breath Cardiac-no palpitations, no chest pain, no syncope GI-no vomiting, diarrhea, melena, hematochezia. She does have nausea -no urinary retention, no urinary incontinence, no dysuria, no hematuria Musculoskeletal-no joint pain, no muscle tenderness Skin-no bruising, no rashes, no pruritus Neuro-generalized weakness. No paresthesia Psych-no depression, no anxiety Physical Exam 2 Physical Exam: General-alert and oriented x3, no fever, no chills HEENT-head atraumatic and normocephalic, pupils equal and reactive to light, extraocular muscles intact Neck-no lymphadenopathy or thyromegaly, trachea midline Chest-clear to auscultation. No rales, wheezing or rhonchi Cardiac-regular rate and rhythm, normal S1 and S2. Occasional premature beat Abdomen-normal bowel sounds, nontender, no hepatosplenomegaly Extremities-no cyanosis, clubbing, or edema Neuro-cranial nerves II through XII intact, motor and sensory function within normal limits, strength symmetrical, no focal deficits Psych-flat affect Results & Data Results & Data Vital Signs (Past 12 Hours) Vital Signs Temp Pulse Pulse Resp BP Pulse Ox O2 Del Method 02/15/24 14:58 36.4 C L 83 18 123/75 95 Nasal Cannula 02/15/24 12:54 133/82 02/15/24 11:34 36.8 C 73 17 105/56 L 99 Nasal Cannula 02/15/24 08:03 36.5 C 107 H 18 116/67 97 Nasal Cannula 02/15/24 07:30 Nasal Cannula 02/15/24 07:08 84 O2 Flow Rate 02/15/24 14:58 2 02/15/24 12:54 02/15/24 11:34 2 02/15/24 08:03 2 02/15/24 07:30 2 02/15/24 07:08 Laboratory Results 02/15/24 05:58 02/15/24 05:58 PG Care Time/CCT Total # of Minutes Spent Total Time Spent with Patient: Total time spent is greater than 50% in coordination of care (as documented) at patient's floor/unit and/or counseling patient: Coding Level of Care Code 23609 SUB INP/OBS CARE 3/50MIN Diagnoses Fall W19.XXXA Rhabdomyolysis M62.82 UTI (urinary tract infection) N39.0 VENESSA (acute kidney injury) N17.9 Elevated troponin R79.89 CHF (congestive heart failure) I50.9 Heart failure chronicity: acute Heart failure type: unspecified Ileostomy in place Z93.2 Diabetes mellitus, type 2 E11.9 Pulmonary embolism, bilateral I26.99 Abdominal fistula K63.2 Depression F32.A Hypothyroidism E03.9 Postural lightheadedness R42 Mass of spine M89.8X8 (6) CHF (congestive heart failure) Heart failure chronicity: acute Heart failure type: unspecified Qualified Code(s): I50.9 - Heart failure, unspecified
[2024-02-15] MEDS: metFORMIN HCL 500 MG TAB PO SCH (16:34)
[2024-02-15] MEDS: traMADol HCL 50 MG TABLET PO PRN (17:00)
--- NOTE | 2024-02-15 17:27 | Electrocardiogram Report ---
Test Reason : Blood Pressure : / mmHG Vent. Rate : 081 BPM Atrial Rate : 081 BPM P-R Int : 164 ms QRS Dur : 088 ms QT Int : 418 ms P-R-T Axes : 061 -12 066 degrees QTc Int : 485 ms Sinus rhythm with Premature supraventricular complexes Otherwise normal ECG When compared with ECG of 14-FEB-2024 08:16, Nonspecific T wave abnormality, improved in Inferior leads Confirmed by Roosevelt Chang ([id number]) on 02/15/2024 5:27:10 PM Referred By: REFERRED SELF Confirmed By:Geoff Chang
[2024-02-15] MEDS: CIPROFLOXACIN 500 MG TAB PO SCH (20:41)
[2024-02-16 06:35] LABS: Basophils # (auto) 0.04 K/uL (0.00-0.20); Basophils % (auto) 0.5 %; Calcium 7.8 mg/dl (8.6-10.3); Creatinine Clr Calc Pharmacy 82.7 ml/min; Eosinophils # (auto) 0.11 K/uL (0.00-0.50); Eosinophils % (auto) 1.4 %; Est GFR (African American) 76.1 ml/min; Est GFR (Non-African American) 65.6 ml/min; Hematocrit (blood only) 32.7 % (37.0-47.0); Hemoglobin 10.5 g/dl (12.0-16.0); Immature Granulocytes # (auto) 0.04 K/uL (0.01-0.20); Immature Granulocytes % (auto) 0.5 %; Lymphocytes # (auto) 1.32 K/uL (1.20-3.40); Lymphocytes % (auto) 16.3 %; Mean Corpuscular Hemoglobin 28.8 pg (25.0-34.0); Mean Corpuscular Hgb Conc 32.1 g/dL (32.0-36.0); Mean Corpuscular Volume 89.8 fL (80.0-100.0); Mean Platelet Volume 11.3 fL (9.4-12.4); Monocytes # (auto) 0.88 K/uL (0.11-0.59); Monocytes % (auto) 10.9 %; Neutrophils # (auto) 5.71 K/uL (1.40-6.50); Neutrophils % (auto) 70.4 %; Platelet Count 221 K/uL (130-400); Potassium 3.8 mmol/L (3.5-5.1); RDW Coefficient of Variation 15.3 % (11.5-14.5); RDW Standard Deviation 50.4 fL (36.4-46.3); Red Blood Count 3.64 M/uL (4.20-5.40)
--- NOTE | 2024-02-16 15:25 | Hospitalist Progress Note ---
Date of Service February 16, 2024 Assessment & Plan (1) Fall: Plan: Patient found on the ground by her daughter on 02/12. On ground for unknown length of time after fall, but likely ~24 hours (last medicines were taken 02/11 at noon). Hypothermic at 34.6 C on arrival, with evidence of mild VENESSA, mild rhabdomyolysis. No fractures on imaging-head and C-spine CT, Hip/pelvic x- ray,Right elbow x-ray . Continue PT and OT while hospitalized (2) Rhabdomyolysis: Plan: Mild on admission. Resolved with IV fluids. Serial labs . Statin therapy temporarily on hold (3) Orthostatic syncope: Plan: Coreg switched to metoprolol. Midodrine dosage increased. Will follow (4) UTI (urinary tract infection): Plan: Ruled out. Urine culture negative. Rocephin has been discontinued (5) VENESSA (acute kidney injury): Plan: Mild on admission. Resolved with IV fluids. Monitor intake and output. Serial labs (6) Elevated troponin: Plan: Mild on admission. No acute EKG changes. No chest pain. No regional wall motion abnormality seen on cardiac echo. (7) CHF (congestive heart failure): Plan: History of chronic diastolic CHF. No current exacerbation. Monitor intake and output. (8) Ileostomy in place: Plan: Daily ostomy care. Secondary to Crohn's (9) Diabetes mellitus, type 2: Plan: Last A1c at 6.5% on 12/08/2023. ADA diet. Sliding scale coverage. Metformin restarted on February 14 (10) Pulmonary embolism, bilateral: Plan: Has occurred twice in the past. 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 Flagyl temporarily discontinued due to nausea (12) Depression: Plan: Outpatient psychiatry evaluation recommended (13) Hypothyroidism: Plan: Stable. 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 Ortho spine recommended repeat imaging in 3 months per PCP Plan [facility], February 16 Admission and Anticipated Discharge Date Admission Date: February 13, 2024 Subjective Alert and oriented. She states that she has had syncope that sounds orthostatic. Midodrine dosage increased and Coreg switched to metoprolol. She has requested podiatry evaluation and trimming of her toenails. She probably will [facility], February 16 Review of Systems 2 Review of Systems: Constitutional-no fever or chills ENT-no blurred vision, no double vision, no epistaxis, no sore throat Respiratory-no cough, no wheezing, no shortness of breath Cardiac-no palpitations, no chest pain, no syncope GI-no vomiting, diarrhea, melena, hematochezia. She does have nausea -no urinary retention, no urinary incontinence, no dysuria, no hematuria Musculoskeletal-no joint pain, no muscle tenderness Skin-no bruising, no rashes, no pruritus Neuro-generalized weakness. No paresthesia Psych-no depression, no anxiety Physical Exam 2 Physical Exam: General-alert and oriented x3, no fever, no chills HEENT-head atraumatic and normocephalic, pupils equal and reactive to light, extraocular muscles intact Neck-no lymphadenopathy or thyromegaly, trachea midline Chest-clear to auscultation. No rales, wheezing or rhonchi Cardiac-regular rate and rhythm, normal S1 and S2. Occasional premature beat Abdomen-normal bowel sounds, nontender, no hepatosplenomegaly Extremities-no cyanosis, clubbing, or edema Neuro-cranial nerves II through XII intact, motor and sensory function within normal limits, strength symmetrical, no focal deficits Psych-flat affect Results & Data Results & Data Vital Signs (Past 12 Hours) Vital Signs Temp Pulse Pulse Resp BP Pulse Ox O2 Del Method 02/16/24 15:18 36.7 C 82 16 75/55 L 98 Nasal Cannula 02/16/24 14:41 84 02/16/24 11:29 36.7 C 80 14 121/83 97 Nasal Cannula 02/16/24 10:32 36.5 C 87 15 94/53 L 95 Room Air 02/16/24 07:56 Nasal Cannula 02/16/24 07:39 36.5 C 85 15 106/60 95 Nasal Cannula 02/16/24 07:01 70 O2 Flow Rate 02/16/24 15:18 2.5 02/16/24 14:41 02/16/24 11:29 2 02/16/24 10:32 2 02/16/24 07:56 2 02/16/24 07:39 2 02/16/24 07:01 Laboratory Results 02/16/24 05:49 02/16/24 05:49 PG Care Time/CCT Total # of Minutes Spent Total Time Spent with Patient: Total time spent is greater than 50% in coordination of care (as documented) at patient's floor/unit and/or counseling patient: Coding Level of Care Code 65560 SUB INP/OBS CARE 3/50MIN Diagnoses Fall W19.XXXA Rhabdomyolysis M62.82 Orthostatic syncope I95.1 UTI (urinary tract infection) N39.0 VENESSA (acute kidney injury) N17.9 Elevated troponin R79.89 CHF (congestive heart failure) I50.9 Heart failure chronicity: acute Heart failure type: unspecified Ileostomy in place Z93.2 Diabetes mellitus, type 2 E11.9 Pulmonary embolism, bilateral I26.99 Abdominal fistula K63.2 Depression F32.A Hypothyroidism E03.9 Mass of spine M89.8X8 (7) CHF (congestive heart failure) Heart failure chronicity: acute Heart failure type: unspecified Qualified Code(s): I50.9 - Heart failure, unspecified
--- NOTE | 2024-02-16 17:15 | Podiatry Consultation ---
Date of Consultation February 16, 2024 Assessment & Plan (1) Tinea unguium: (2) Pain in toe of left foot: (3) Pain in toe of right foot: (4) Other specified peripheral vascular diseases: Plan Patient examined and evaluated. Discussed etiology/treatment of these toenails and foot problems. Nails 1-5 b/l sharply debrided in length and thickness without incident. She should benefit from continued outpatient treatment, having them debrided every 9-12 weeks or so. depending on where she is discharged to an -[facility], she may have podiatry care at many local rehab facilities. If she is fully outpatient in the next 2-3 months, we can see her in our office. patient understands and will schedule follow-up as needed. We will sign off for now but please do not hesitate to reach out if there are any other foot and ankle concerns. History of Present Illness Reason for Consultation: Painful nails Attending Physician: Alo Rice MD History of Present Illness Longstanding history of nail dystrophy/fungal toenails and callus formation. She has only seldom sought treatment, including seeing Dr. Ayala at [facility] in the middle of last year. she is likely being discharged in the next couple of days to an inpatient rehab. She requested, through the internal medicine team, that her nails have become increasingly painful. She would like to have these trimmed before she is transferred again. She has had difficulty obtaining care because of her recent history of hospitalization and time spent inpatient. She denies any specific injury or trauma. She also denies any recent medical history change, other than her current inpatient concerns. Allergies Allergy/AdvReac Type Severity Reaction Status Date / Time red dye Allergy Severe Anaphylaxis Verified 02/13/24 17:07 Home Medications Medication Instructions Recorded Confirmed Type famotidine 20 mg tablet (Pepcid) 20 mg PO DAILY PRN Acid Reflux 09/18/22 02/13/24 History metformin 500 mg tablet 500 mg PO BID 09/18/22 02/13/24 History pravastatin 40 mg tablet 40 mg PO HS 09/18/22 02/13/24 History levothyroxine 200 mcg tablet 200 mcg PO DAILYBB 12/03/22 02/13/24 History cholecalciferol (vitamin D3) 50 50 mcg PO QAM 02/27/23 02/13/24 History mcg (2,000 unit) capsule (Vitamin D3) cyanocobalamin (vitamin B-12) 1,000 mcg PO QAM 02/27/23 02/13/24 History 1,000 mcg tablet (Vitamin B-12) levothyroxine 25 mcg tablet 25 mcg PO DAILYBB 12/07/23 02/13/24 History apixaban 5 mg tablet (Eliquis) 5 mg PO BID #60 tabs 12/09/23 02/13/24 Rx potassium chloride 20 mEq 20 meq PO DAILY takes when taking 12/20/23 02/13/24 Rx tablet,extended release torsemide #30 tabs torsemide 10 mg tablet 10 mg PO DAILY edema in feet #30 12/20/23 02/13/24 Rx tabs carvedilol 3.125 mg tablet 3.125 mg PO BIDM #60 tabs 12/29/23 02/13/24 Rx ciprofloxacin HCl 500 mg tablet 500 mg PO BID #60 tabs 12/29/23 02/13/24 Rx metronidazole 500 mg tablet 500 mg PO TID #90 tabs 12/29/23 02/13/24 Rx midodrine 2.5 mg tablet 2.5 mg PO TIDM 02/13/24 02/13/24 History Patient History Medical History Postural lightheadedness Mass of spine Morbid obesity with BMI of 50.0-59.9, adult Osteoarthritis Ileostomy in place Ulcerative colitis Hypothyroidism Diabetes mellitus, type 2 on metformin daily History of pulmonary embolism "at least 10yrs ago"--unknown cause, was on blood thinners, but then taken off--per pt no issues currently Heart murmur follows with PCP--no gas charger Surgical History History of benign breast biopsy History of total left knee replacement (TKR) History of total right knee replacement (TKR) History of gastric bypass History of hernia surgery History of cholecystectomy History of appendectomy History of colonoscopy and ileoscopy History of esophagogastroduodenoscopy (EGD) History of colon resection performed about 20yrs ago d/t ulcerative colitis---has ileostomy History of tooth extraction History of wisdom tooth extraction History of thyroidectomy, total d/t nodules History of bilateral cataract extraction Family History Sister Family history of reaction to anesthesia nausea/vomiting Social History Smoking Status: Never smoker Second Hand Exposure: No; Do You Dip or Chew Tobacco: No; Hx Alcohol Use: No Hx Substance Use: No Preferred Language: American Communication Ability: Effective [employer] Required: No Beliefs That Will Affect Care: None Current Living Situation: Alone Current Living Situation Comment: Chickens Other Information That Helps Us Care for You: No Feels Safe at Home: Yes Safety Concerns: Feels Safe At This Time Assistive Devices: Glasses, Walker and Wheelchair Review of Systems Review of Systems: All systems reviewed & are unremarkable except as noted in HPI & below Constitutional: as per Subjective / HPI; no fever, no chills and no problem reported Eyes: no problem reported Ear, Nose, Mouth, Throat: no problem reported Respiratory: no problem reported Cardiovascular: + edema Gastrointestinal: no problem reported Genitourinary: no problem reported Musculoskeletal: + muscle weakness and + muscle atrophy; no problem reported Integumentary: + nail changes Neurologic: + generalized weakness, + loss of sensat ion, + numbness and + paresthesia Psychiatric: no problem reported Physical Exam Physical Exam: bilateral lower physical exam: DP/PT pulses 0/4 bilaterally. CFT is brisk to the digits. Advanced trophic changes are noted to the skin of the foot, including poor tension, callus formation, nail dystrophy, hair loss, and advanced cooling proximal to distal. Sensation is globally decreased, including decreased light touch and pain sensation to the feet. Mild hallux valgus and semirigid hammertoe deformities are appreciated, consistent with her age and habitus. Nails 1 through 5 bilaterally are dystrophic and elongated. There is pain on palpation of the nails which is improved sharp treatment. Constitutional: WD/WN, vitals as above well developed, well nourished and + morbidly obese Eyes: PERRL, conjunctivae normal, anicteric sclerae ENMT: external ear and nose normal, oropharynx normal Neck: trachea midline, no thyromegaly Respiratory: no respiratory distress Cardiovascular: Rate/Rhythm: regular rate and regular rhythm Vessels: + posterior tibial pulses abnormal and + dorsalis pedis pulses abnormal Extremities: normal capillary refill, + pedal edema and + edema Musculoskeletal: Head/Neck/Chest: normocephalic and head atraumatic Extremities: + abnormal strength and + abnormal muscle tone Skin: + turgor decreased, + skin atrophy, + dr y skin, + nails discolored and + nails dystrophic; no ulcers and no wound Neurologic: moves all extremities; + abnormal sensation to monofilament Psychiatric: A+Ox3, euthymic affect Results & Data Vital Signs (Past 12 Hours) Vital Signs Temp Pulse Pulse Resp BP BP Pulse Ox 02/16/24 15:21 92/61 L 02/16/24 15:18 36.7 C 82 16 75/55 L 98 02/16/24 14:41 84 02/16/24 11:29 36.7 C 80 14 121/83 97 02/16/24 10:32 36.5 C 87 15 94/53 L 95 02/16/24 07:56 02/16/24 07:39 36.5 C 85 15 106/60 95 02/16/24 07:01 70 O2 Del Method O2 Flow Rate 02/16/24 15:21 02/16/24 15:18 Nasal Cannula 2.5 02/16/24 14:41 02/16/24 11:29 Nasal Cannula 2 02/16/24 10:32 Room Air 2 02/16/24 07:56 Nasal Cannula 2 02/16/24 07:39 Nasal Cannula 2 02/16/24 07:01
[2024-02-16] MEDS: MIDODRINE HCL 2.5 MG TAB PO SCH (17:49)
[2024-02-16] MEDS: METOPROLOL TARTRATE 25 MG TAB PO SCH (20:17)
--- NOTE | 2024-02-17 14:01 | Hospitalist Progress Note ---
Date of Service February 17, 2024 Assessment & Plan (1) Fall: Plan: Patient found on the ground by her daughter on 02/12. On ground for unknown length of time after fall, but likely ~24 hours (last medicines were taken 02/11 at noon). Hypothermic at 34.6 C on arrival, with evidence of mild VENESSA, mild rhabdomyolysis. No fractures on imaging-head and C-spine CT, Hip/pelvic x- ray,Right elbow x-ray . Continue PT and OT while hospitalized. Hypothermia and rhabdomyolysis have resolved (2) Rhabdomyolysis: Plan: Mild on admission. Resolved with IV fluids. Serial labs . Statin therapy temporarily on hold , will restart at discharge (3) Orthostatic syncope: Plan: Coreg switched to metoprolol. Midodrine dosage increased. No recurrence of syncope. (4) UTI (urinary tract infection): Plan: Ruled out. Urine culture negative. Rocephin has been discontinued (5) VENESSA (acute kidney injury): Plan: Mild on admission. Resolved with IV fluids. Monitor intake and output. Serial labs (6) Elevated troponin: Plan: Mild on admission. No acute EKG changes. No chest pain. No regional wall motion abnormality seen on cardiac echo. (7) CHF (congestive heart failure): Plan: History of chronic diastolic CHF. No current exacerbation. Monitor intake and output. (8) Ileostomy in place: Plan: Daily ostomy care. Secondary to Crohn's (9) Diabetes mellitus, type 2: Plan: Last A1c at 6.5% on 12/08/2023. ADA diet. Sliding scale coverage. Metformin restarted on February 14 (10) Pulmonary embolism, bilateral: Plan: Has occurred twice in the past. 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 Flagyl temporarily discontinued due to nausea (12) Depression: Plan: Outpatient psychiatry evaluation recommended (13) Hypothyroidism: Plan: Stable. 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 Ortho spine recommended repeat imaging in 3 months per PCP Plan Will discharge to [facility] when arrangements are finalized. She is medically stable Admission and Anticipated Discharge Date Admission Date: February 13, 2024 Subjective Alert and oriented. No acute distress. She is medically stable for discharge to [facility] when arrangements are finalized. Midodrine dosage increased this admission and Coreg switched over to metoprolol. Heart rate and blood pressure are stable. She had her toenails trimmed by podiatry and is very thankful. [id number] glucose this morning is 132. Review of Systems 2 Review of Systems: Constitutional-no fever or chills ENT-no blurred vision, no double vision, no epistaxis, no sore throat Respiratory-no cough, no wheezing, no shortness of breath Cardiac-no palpitations, no chest pain, no syncope GI-no vomiting, diarrhea, melena, hematochezia. She does have nausea -no urinary retention, no urinary incontinence, no dysuria, no hematuria Musculoskeletal-no joint pain, no muscle tenderness Skin-no bruising, no rashes, no pruritus Neuro-generalized weakness. No paresthesia Psych-no depression, no anxiety Physical Exam 2 Physical Exam: General-alert and oriented x3, no fever, no chills HEENT-head atraumatic and normocephalic, pupils equal and reactive to light, extraocular muscles intact Neck-no lymphadenopathy or thyromegaly, trachea midline Chest-clear to auscultation. No rales, wheezing or rhonchi Cardiac-regular rate and rhythm, normal S1 and S2. Occasional premature beat Abdomen-normal bowel sounds, nontender, no hepatosplenomegaly Extremities-no cyanosis, clubbing, or edema Neuro-cranial nerves II through XII intact, motor and sensory function within normal limits, strength symmetrical, no focal deficits Psych-flat affect Results & Data Results & Data Vital Signs (Past 12 Hours) Vital Signs Temp Pulse Pulse Pulse Resp BP Pulse Ox 02/17/24 12:03 36.9 C 81 17 108/70 93 02/17/24 10:31 02/17/24 07:49 37.4 C 78 17 110/70 93 02/17/24 07:00 89 02/17/24 03:10 36.4 C L 65 18 104/69 96 O2 Del Method O2 Flow Rate 02/17/24 12:03 Room Air 02/17/24 10:31 Room Air 02/17/24 07:49 Room Air 02/17/24 07:00 02/17/24 03:10 Nasal Cannula 2 Laboratory Results 02/16/24 05:49 02/16/24 05:49 PG Care Time/CCT Total # of Minutes Spent Total Time Spent with Patient: Total time spent is greater than 50% in coordination of care (as documented) at patient's floor/unit and/or counseling patient: Coding Level of Care Code 10260 SUB INP/OBS CARE 2/35MIN Diagnoses Fall W19.XXXA Rhabdomyolysis M62.82 Orthostatic syncope I95.1 UTI (urinary tract infection) N39.0 VENESSA (acute kidney injury) N17.9 Elevated troponin R79.89 CHF (congestive heart failure) I50.9 Heart failure chronicity: acute Heart failure type: unspecified Ileostomy in place Z93.2 Diabetes mellitus, type 2 E11.9 Pulmonary embolism, bilateral I26.99 Abdominal fistula K63.2 Depression F32.A Hypothyroidism E03.9 Mass of spine M89.8X8 (7) CHF (congestive heart failure) Heart failure chronicity: acute Heart failure type: unspecified Qualified Code(s): I50.9 - Heart failure, unspecified
--- NOTE | 2024-02-18 11:57 | Discharge Summary ---
Date of Service February 18, 2024 Admission HPI Per Admitting Provider Symone is a 78-year-old female with PMH of Crohn's disease s/p total proctocolectomy, colostomy status, T2DM, CESAR, GERD, cirrhosis, CHF, and DVT (on Eliquis). She presented via EMS after being found by her daughter laying on the floor on 02/12. Patient reports that she fell after lunch on 02/11, and was down for approximately 18-24 hours. She reports that she was feeling dizzy/lightheaded prior to falling. No LOC. No head strike. On Eliquis for DVT PPx in A-fib. She uses a walker for ambulation at baseline did not trip on anything. She reports that she struck her left hip and has been having some mild left hip pain. No radiation down the leg. She reports she was unable to stand after she fell. She has fallen in the past, but not recently. Patient last took her medications around lunchtime on 02/11; her daughter helps to manage the medications by putting them in a pillbox. Patient's daughter does note that they changed up her blood pressure medications upon discharge from rehab after her last hospital stay; they have been having difficulty with managing her fluids (history of CHF) also managing dizziness. Daughter reports that she is still taking midodrine. No sick contacts. No supplemental oxygen at home. Patient's vitals are stable at time of admission. ED course: NSS 1000 mL IV ROS: Patient endorses sweating, new back pain, nausea/dry heaves, vomiting x 2 (felt like she spit something up) Patient denies fever, chills, body aches, CP, chest palpitations, SOB, cough, diarrhea, urinary s/s, burning with urination, blood in the urine/stool, N/T/pain in legs. Spoke to patient's daughter outside of room following admission. Patient's daughter reports that her mom has been feeling increasingly lethargic, apathetic, and depressed over the past few months. She reports that during her last rehab stay, PT reported that she was "her own worst enemy" and was uninterested about participating in her care. She also notes that the patient has not been eating, and throwing up food. Will consult case management for depression, and potential placement. Dr. Conti spoke to the patient following admission, and patient reported she was amenable to seeing psychiatry while inpatient. Principal Diagnosis Mechanical fall, acute kidney injury, orthostatic syncope, elevated troponin without acute coronary syndrome, mild rhabdomyolysis Discharge Exam General-alert and oriented x3, no fever, no chills HEENT-head atraumatic and normocephalic, pupils equal and reactive to light, extraocular muscles intact Neck-no lymphadenopathy or thyromegaly, trachea midline Chest-clear to auscultation. No rales, wheezing or rhonchi Cardiac-regular rate and rhythm, normal S1 and S2. Occasional premature beat Abdomen-normal bowel sounds, nontender, no hepatosplenomegaly Extremities-no cyanosis, clubbing, or edema Neuro-cranial nerves II through XII intact, motor and sensory function within normal limits, strength symmetrical, no focal deficits Psych-flat affect Discharge Data Allergies Allergy/AdvReac Type Severity Reaction Status Date / Time red dye Allergy Severe Anaphylaxis Verified 02/13/24 17:07 Consultations 02/13/24 18:43 ED Decision to Admit Stat 02/16/24 12:27 Consult Podiatry Routine Ordered Studies 02/13/24 16:24 CT cervical spine wo con Stat CT head/brain wo con Stat Hospital Course (1) Fall: Patient found on the ground by her daughter on 02/12. On ground for unknown length of time after fall, but likely ~24 hours (last medicines were taken 02/11 at noon). Hypothermic at 34.6 C on arrival, with evidence of mild VENESSA, mild rhabdomyolysis. No fractures on imaging-head and C-spine CT, Hip/pelvic x- ray,Right elbow x-ray . Continue PT and OT while hospitalized. Hypothermia and rhabdomyolysis have resolved (2) Rhabdomyolysis: Mild on admission. Resolved with IV fluids. Serial labs . Statin therapy temporarily on hold , will restart at discharge (3) Orthostatic syncope: Coreg switched to metoprolol. Midodrine dosage increased. No recurrence of syncope. (4) UTI (urinary tract infection): Ruled out. Urine culture negative. Rocephin has been discontinued (5) VENESSA (acute kidney injury): Mild on admission. Resolved with IV fluids. Monitor intake and output. Serial labs (6) Elevated troponin: Mild on admission. No acute EKG changes. No chest pain. No regional wall motion abnormality seen on cardiac echo. (7) CHF (congestive heart failure): History of chronic diastolic CHF. No current exacerbation. Monitor intake and output. (8) Ileostomy in place: Daily ostomy care. Secondary to Crohn's (9) Diabetes mellitus, type 2: Last A1c at 6.5% on 12/08/2023. ADA diet. Sliding scale coverage. Metformin restarted on February 14 (10) Pulmonary embolism, bilateral: Has occurred twice in the past. 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 Flagyl temporarily discontinued while hospital due to nausea. Flagyl will be restarted at discharge (12) Depression: Outpatient psychiatry evaluation recommended (13) Hypothyroidism: Stable. 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 Ortho spine recommended repeat imaging in 3 months per PCP Plan Discharge to [facility] today, February 17 Total Time Total Time Spent Total Time Spent (In Minutes): 45-minute Discharge Plan Discharge Items Patient Disposition: Transfer Inpatient Rehab Fac Reason For Visit: FALL, VENESSA Discharge Diagnosis: Mechanical fall, acute kidney injury, orthostatic syncope, rhabdomyolysis, elevated troponin without acute coronary syndrome Activity: Resume your previous activity Non-emergency contact: Primary Care Provider Call non-emergency contact if: you have any medication questions and your symptoms worsen Follow-up/Referrals: Tanisha Reyes MD [Primary Care Provider] - Diet: Carb Consistent or DM2 and Heart Healthy Addtl Attending Provider Instructions: Midodrine dosage has been increased. Coreg has been switched to metoprolol. This hopefully will help stabilize the blood pressure and prevent any further episodes of passing out Pending Studies at Discharge: No Stand-Alone Forms: My [facility] Skilled Items Patient informed of condition?: Yes DNR: Yes Discharge Level of Care: Acute rehab Communicable Disease: No Discharge Prognosis: Stable Lines: None Urinary Catheter: No Medications and DC Order Prescriptions: New metoprolol tartrate 25 mg Tablet 12.5 mg PO BID Qty: 0 0RF midodrine 2.5 mg Tablet 5 mg PO TIDM Qty: 0 0RF Continued levothyroxine 200 mcg Tablet 200 mcg PO DAILYBB Patient Comments: takes 200 mcg with 25 mcg for dose of 225 mcg Rx Instructions: TOTAL DOSE 225 MCG--TAKES WITH 25 MCG TAB. cyanocobalamin (vitamin B-12) [Vitamin B-12] 1,000 mcg Tablet 1,000 mcg PO QAM cholecalciferol (vitamin D3) [Vitamin D3] 50 mcg (2,000 unit) Capsule 50 mcg PO QAM levothyroxine 25 mcg Tablet 25 mcg PO DAILYBB Patient Comments: takes with 200 mcg Rx Instructions: TOTAL DOSE 225 MCG--TAKES WITH 200 MCG TAB. Eliquis 5 mg tablet 5 mg PO BID Qty: 60 0RF torsemide 10 mg Tablet 10 mg PO DAILY Qty: 30 5RF Rx Instructions: LAST FILLED 07/22. potassium chloride 20 mEq Tablet Extended Release 20 meq PO DAILY Qty: 30 0RF metformin 500 mg Tablet 500 mg PO BID pravastatin 40 mg Tablet 40 mg PO HS famotidine [Pepcid] 20 mg Tablet 20 mg PO DAILY PRN (Reason: Acid Reflux) Patient Comments: hardly uses metronidazole 500 mg Tablet 500 mg PO TID Qty: 90 0RF Rx Instructions: NOT ON PT'S MED LIST ciprofloxacin HCl 500 mg Tablet 500 mg PO BID Qty: 60 0RF Rx Instructions: LAST FILLED 01/16/24 FOR 30 DAYS Discontinued carvedilol 3.125 mg Tablet 3.125 mg PO BIDM Qty: 60 0RF Rx Instructions: NOT ON PT'S MED LIST OR ON EXT MED HX. midodrine 2.5 mg tablet 2.5 mg PO TIDM Rx Instructions: do not give last dose of day after 6PM or within 4 hrs of bedtime Discharge Orders: Discharge Order (Routine); Ordered 02/18/24 Ordered By: Alo Alvarado/Other Patient Handouts: Managing Type 2 Diabetes, Diabetes: Fabio candelaria Admission Data Admit Date/Time: 02/13/24 19:29 Attending Provider: Alo Rice Admit Provider: Omer Conti Primary Care Provider: Tanisha Reyes Other Providers: Omer Conti; [facility]; [place]; Nikolay Simons Coding Level of Care Code 65872 INP/OBS DISCH >30 MIN Diagnoses Fall W19.XXXA Rhabdomyolysis M62.82 Orthostatic syncope I95.1 UTI (urinary tract infection) N39.0 VENESSA (acute kidney injury) N17.9 Elevated troponin R79.89 CHF (congestive heart failure) I50.9 Heart failure chronicity: acute Heart failure type: unspecified Ileostomy in place Z93.2 Diabetes mellitus, type 2 E11.9 Pulmonary embolism, bilateral I26.99 Abdominal fistula K63.2 Depression F32.A Hypothyroidism E03.9 Mass of spine M89.8X8
== END 2024-02-18 15:08 | DRG 558 ==
LOC: ED 15:58 → EDINP 19:29 → SUATTDRO 19:29 → INTOOBSV 19:29 → 2N 21:30

== ENCOUNTER 2024-03-07 08:24 | Inpatient (IN) ==
--- NOTE | 2024-03-07 08:48 | Emergency Department Note ---
Impression & Plan Dizziness, Elevated troponin, Vomiting ED Provider Note NAME: AARON GIMENEZ AGE: 78 SEX: F : 1945 ARRIVES VIA: Ambulance INFORMANT: Patient ED PROVIDER(S): Abdirahman Unger DO CHIEF COMPLAINT: dizzy HPI: Patient is a 78-year-old female with a past medical history postural lightheadedness, ambulatory dysfunction, VENESSA, fall, diabetes, who presents the ER for dizziness with changing positions associated with nausea and vomiting. If she does not sit up she will not get dizzy. If she does not get dizzy she did not get sick to her stomach. Denies any change in vision. No chest pain or shortness of breath. No weakness or numbness in the arms or legs. No belly pain. No dysuria, urgency, or frequency. No other exacerbating or remitting factors. ADDITIONAL HISTORY OBTAINED: Per HPI Chronic Medical/Social Conditions Affecting Care: Per HPI PAST MEDICAL HISTORY:See Below PAST SURGICAL HISTORY:See Below FAMILY HISTORY:See Below SOCIAL HISTORY:See Below HOME MEDICATIONS:See Below ALLERGIES:See Below VITALS:See Below PHYSICAL EXAMINATION: GENERAL: Sitting up in bed, alert, morbidly obese, disheveled EYE EXAM: normal conjunctiva. PERRL and EOM's intact. OROPHARYNX: no exudate, no erythema, lips, buccal mucosa, and tongue normal and mucous membranes are moist NECK: supple, no nuchal rigidity, no adenopathy, non-tender LUNGS: Clear to auscultation. Normal chest wall mechanics HEART: no murmurs, S1 normal and S2 normal ABDOMEN: abdomen soft, non-tender, normo-active bowel sounds, no masses, no rebound or guarding. UPPER EXTREMITIES: upper extremities are grossly normal. LOWER EXTREMITIES: No pitting edema. NEURO EXAM: Normal sensorium, cranial nerves II-XII intact, normal speech, no weakness of arms, no weakness of legs. No drift. Finger to nose intact. Gross sensation intact. MEDICAL DECISION MAKING: Patient is a 78-year-old female who presents ER for above-stated complaint. IV was established blood work is obtained. Labs show no significant leukocytosis or anemia. BMP with slightly elevated chloride at 108. LFTs bilirubin was unremarkable. Troponin slightly bumped at 15. Lipase was normal. CT angio of the head and neck shows no acute infarct but does show some stenosis. Patient was given IV fluids Antivert and updated at bedside. She was discussed with the hospitalist for further evaluation management treatment. Consults/Care Managements Discussions: Per [facility] Triage Nursing notes reviewed. Limited review of prior medical records performed Vital Signs: reviewed and remarkable for no significant abnormalities Differential diagnosis: Differential diagnosis includes etiologies such as benign positional vertigo, dehydration, hypovolemia, anemia, tumor, infection, hypoglycemia, electrolyte abnormalities, cardiac sources, intracerebral event, toxicologic, neurological, as well as others were entertained. ER treatment provided: See below Diagnostics interpreted by me include EKG and cardiac monitoring as listed below: -Cardiac Monitoring: An order was placed for continuous cardiac monitoring. The monitor shows a rate of 90 with sinus rhythm. -ECG: Sinus rhythm rate of 91 Left axis No PVCs QTc 447 -Laboratory studies:Interpreted by me as stated above in MDM and shown below. 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 Surgical History History of benign breast biopsy History of total left knee replacement (TKR) History of total right knee replacement (TKR) History of gastric bypass History of hernia surgery History of cholecystectomy History of appendectomy History of colonoscopy and ileoscopy History of esophagogastroduodenoscopy (EGD) History of colon resection performed about 20yrs ago d/t ulcerative colitis---has ileostomy History of tooth extraction History of wisdom tooth extraction History of thyroidectomy, total d/t nodules History of bilateral cataract extraction Family History Sister Family history of reaction to anesthesia nausea/vomiting Social History Smoking Status: Never smoker Second Hand Exposure: No; Do You Dip or Chew Tobacco: No; Hx Alcohol Use: No Hx Substance Use: No Preferred Language: Italian Communication Ability: Effective 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 Beliefs That Will Affect Care: None Current Living Situation: Alone Current Living Situation Comment: Chickens Feels Safe at Home: Yes Assistive Devices: Glasses, Walker and Wheelchair Allergies Allergies Allergy/AdvReac Type Severity Reaction Status Date / Time red dye Allergy Severe Anaphylaxis Verified 03/07/24 12:38 Home Meds Home Medications Medication Instructions Recorded Confirmed famotidine 20 mg tablet (Pepcid) 20 mg PO DAILY PRN Acid Reflux 09/18/22 03/07/24 metformin 500 mg tablet 500 mg PO BID 09/18/22 03/07/24 pravastatin 40 mg tablet 40 mg PO HS 09/18/22 03/07/24 levothyroxine 200 mcg tablet See Rx Instructions .Route .COMPLEX 12/03/22 03/07/24 cholecalciferol (vitamin D3) 50 50 mcg PO QAM 02/27/23 03/07/24 mcg (2,000 unit) capsule (Vitamin D3) cyanocobalamin (vitamin B-12) 1,000 mcg PO QAM 02/27/23 03/07/24 1,000 mcg tablet (Vitamin B-12) levothyroxine 25 mcg tablet See Rx Instructions .Route .COMPLEX 12/07/23 03/07/24 acetaminophen 325 mg tablet 650 mg PO Q4H PRN Pain 03/07/24 03/07/24 metronidazole 500 mg tablet 500 mg PO Q8H 03/07/24 03/07/24 midodrine 5 mg tablet 5 mg PO TID 03/07/24 03/07/24 tramadol 50 mg tablet 50 mg PO Q6H PRN Pain 03/07/24 03/07/24 Previous Rx's Medication Instructions Recorded apixaban 5 mg tablet (Eliquis) 5 mg PO BID #60 tabs 12/09/23 potassium chloride 20 mEq 20 meq PO DAILY takes when taking 12/20/23 tablet,extended release torsemide #30 tabs ciprofloxacin HCl 500 mg tablet 500 mg PO BID #60 tabs 12/29/23 metoprolol tartrate 25 mg tablet 12.5 mg (1/2 x 25 mg) PO BID #0 02/18/24 tabs Results & Data (ED) Vital Signs Vital Signs - 24 hr 03/07/24 08:18 03/07/24 08:37 03/07/24 08:40 Temperature Source Oral Pulse Rate 87 99 H 87 Pulse Rate [Apical] Pulse Rate from SpO2 Sensor 81 87 Pulse Rhythm Irregular Respiratory Rate 19 14 15 Respiratory Effort / Characteristics Non-Labored Respiratory Depth Normal Respiratory Pattern Regular Blood Pressure 143/84 H Blood Pressure [Right Arm] Blood Pressure Mean 103 Blood Pressure Mean [Right Arm] Blood Pressure Position Sitting Pulse Oximetry 97 97 97 Oxygen Delivery Method Room Air Sepsis Recent Fever Within 48 Hours No Sepsis New/Unexplained Change in Mental Status No Sepsis Action Taken by Nursing No Action Required 03/07/24 08:45 03/07/24 08:50 03/07/24 08:56 Temperature Source Pulse Rate 87 80 89 Pulse Rate [Apical] Pulse Rate from SpO2 Sensor 82 Pulse Rhythm Irregular Respiratory Rate 19 14 Respiratory Effort / Characteristics Respiratory Depth Respiratory Pattern Blood Pressure Blood Pressure [Right Arm] Blood Pressure Mean Blood Pressure Mean [Right Arm] Blood Pressure Position Pulse Oximetry 97 97 Oxygen Delivery Method Room Air Sepsis Recent Fever Within 48 Hours Sepsis New/Unexplained Change in Mental Status Sepsis Action Taken by Nursing 03/07/24 09:00 03/07/24 09:10 03/07/24 09:20 Temperature Source Pulse Rate 84 94 H 86 Pulse Rate [Apical] Pulse Rate from SpO2 Sensor 84 91 H Pulse Rhythm Respiratory Rate 15 16 23 Respiratory Effort / Characteristics Respiratory Depth Respiratory Pattern Blood Pressure Blood Pressure [Right Arm] Blood Pressure Mean Blood Pressure Mean [Right Arm] Blood Pressure Position Pulse Oximetry 98 98 Oxygen Delivery Method Sepsis Recent Fever Within 48 Hours Sepsis New/Unexplained Change in Mental Status Sepsis Action Taken by Nursing 03/07/24 09:30 03/07/24 09:40 03/07/24 09:50 Temperature Source Pulse Rate 80 81 80 Pulse Rate [Apical] Pulse Rate from SpO2 Sensor Pulse Rhythm Respiratory Rate 12 16 15 Respiratory Effort / Characteristics Respiratory Depth Respiratory Pattern Blood Pressure Blood Pressure [Right Arm] Blood Pressure Mean Blood Pressure Mean [Right Arm] Blood Pressure Position Pulse Oximetry Oxygen Delivery Method Sepsis Recent Fever Within 48 Hours Sepsis New/Unexplained Change in Mental Status Sepsis Action Taken by Nursing 03/07/24 10:00 03/07/24 10:10 03/07/24 10:20 Temperature Source Pulse Rate 75 102 H 83 Pulse Rate [Apical] Pulse Rate from SpO2 Sensor Pulse Rhythm Respiratory Rate 12 20 15 Respiratory Effort / Characteristics Respiratory Depth Respiratory Pattern Blood Pressure Blood Pressure [Right Arm] Blood Pressure Mean Blood Pressure Mean [Right Arm] Blood Pressure Position Pulse Oximetry Oxygen Delivery Method Sepsis Recent Fever Within 48 Hours Sepsis New/Unexplained Change in Mental Status Sepsis Action Taken by Nursing 03/07/24 10:30 03/07/24 10:40 03/07/24 10:50 Temperature Source Pulse Rate 94 H 93 H 90 Pulse Rate [Apical] Pulse Rate from SpO2 Sensor Pulse Rhythm Respiratory Rate 15 18 15 Respiratory Effort / Characteristics Respiratory Depth Respiratory Pattern Blood Pressure Blood Pressure [Right Arm] Blood Pressure Mean Blood Pressure Mean [Right Arm] Blood Pressure Position Pulse Oximetry Oxygen Delivery Method Sepsis Recent Fever Within 48 Hours Sepsis New/Unexplained Change in Mental Status Sepsis Action Taken by Nursing 03/07/24 11:00 03/07/24 12:34 03/07/24 12:54 Temperature Source Pulse Rate 92 H 95 H Pulse Rate [Apical] 88 Pulse Rate from SpO2 Sensor Pulse Rhythm Respiratory Rate 14 19 Respiratory Effort / Characteristics Non-Labored Spontaneous Respiratory Depth Normal Respiratory Pattern Blood Pressure Blood Pressure [Right Arm] 113/71 Blood Pressure Mean Blood Pressure Mean [Right Arm] 85 Blood Pressure Position Pulse Oximetry 93 Oxygen Delivery Method Room Air Sepsis Recent Fever Within 48 Hours Sepsis New/Unexplained Change in Mental Status Sepsis Action Taken by Nursing Laboratory Data 03/07/24 08:30 03/07/24 08:30 Lab Results 03/07/24 Range/Units 08:30 WBC 8.55 (4.8-10.8) K/ul RBC 4.29 (4.20-5.40) M/uL Hgb 12.5 (12.0-16.0) g/dl Hct 40.1 (37.0-47.0) % MCV 93.5 (80.0-100.0) fL MCH 29.1 (25.0-34.0) pg MCHC 31.2 L (32.0-36.0) g/dL RDW Std Deviation 54.9 H (36.4-46.3) fL RDW Coeff of Laurie 16.0 H (11.5-14.5) % Plt Count 349 (130-400) K/uL MPV 10.9 (9.4-12.4) fL Immature Gran % (Auto) 0.5 % Neut % (Auto) 72.0 % Lymph % (Auto) 17.8 % [place] % (Auto) 8.1 % Eos % (Auto) 0.9 % Baso % (Auto) 0.7 % Neut # (Auto) 6.16 (1.40-6.50) K/uL Lymph # (Auto) 1.52 (1.20-3.40) K/uL [place] # (Auto) 0.69 H (0.11-0.59) K/uL Eos # (Auto) 0.08 (0.00-0.50) K/uL Baso # (Auto) 0.06 (0.00-0.20) K/uL Immature Gran # (Auto) 0.04 (0.01-0.20) K/uL Sodium 140 (136-145) mmol/L Potassium 4.3 (3.5-5.1) mmol/L Chloride 108 H (98-107) mmol/L Carbon Dioxide 24 (21-32) mmol/L Anion Gap 8 (3-11) BUN 15 (6-23) mg/dl Creatinine 0.92 (0.6-1.2) mg/dl Est Cr Clr Drug Dosing 80.0 ml/min Est GFR ( Amer) 70.1 ml/min Est GFR (Non-Af Amer) 60.5 ml/min BUN/Creatinine Ratio 16.3 (10-20) Glucose 155 H (70-99(Fasting)) mg/dl Calcium 8.8 (8.6-10.3) mg/dl Total Bilirubin 0.6 (0.2-1.0) mg/dl AST 14 (13-39) U/L ALT 7 (7-52) U/L Alkaline Phosphatase 78 (34-104) U/L Troponin I High Sens 15.1 H (0-14) pg/ml Total Protein 7.2 (6.0-8.3) gm/dl Albumin 3.8 (3.4-5.0) gm/dl Globulin 3.4 (2.5-4.0) gm/dl Albumin/Globulin Ratio 1.1 (0.9-2) Lipase 23 (11-82) U/L Administered Medications Discontinued Medications Sodium Chloride (Nss) 1,000 mls @ 999 mls/hr IV .Q1H1M ONE Stop: 03/07/24 09:45 Last Infusion: 03/07/24 11:30 Dose: Infused Documented By: Admin: 03/07/24 09:08 Dose: 999 mls/hr Documented By: PETER Ioversol (Optiray 320 125ml) 118 ml IV ONCE ONE Stop: 03/07/24 11:14 Last Admin: 03/07/24 11:15 Dose: 118 ml Documented By: GRACE Meclizine HCl (Meclizine Hcl 25 Mg Tab) 25 mg PO NOW STA Stop: 03/07/24 12:16 Last Admin: 03/07/24 12:33 Dose: 25 mg Documented By: KATINA Ondansetron HCl (Ondansetron Inj 2 Mg/Ml 2 Ml Vial) 4 mg IV NOW STA Stop: 03/07/24 08:46 Last Admin: 03/07/24 09:09 Dose: 4 mg Documented By: PETER Imaging Data Radiologist's Impression: Chest X-Ray 03/07/24 08:45 XR chest 1V portable HISTORY: Chest pain, nonspecific COMPARISON: Chest 02/13/2024. FINDINGS: The cardiac silhouette remains mildly enlarged. A few bibasilar linear densities favor subsegmental atelectasis are scarring. This is similar to the prior study. No pneumothorax. No pleural effusions. No new focal lung consolidations to suggest a pneumonia. No evidence for pulmonary edema. IMPRESSION: No significant change compared to the prior study. No acute process. ACT 112: Negative or not required by law. Electronically signed by: Caleb Simmons M.D. 03/07/2024 9:43 AM Head CTA 03/07/24 08:45 CT angio head wo/w CLINICAL HISTORY: 78 years-old Female with dizzy. Acute dizziness COMPARISON STUDY: CT neck of same day, DARCIE 02/13/2024 TECHNIQUE: Unenhanced axial CT scan of the brain is performed. Subsequently, following the IV administration of 118 cc of Optiray, CT angiogram of the brain was performed from the skull base to the vertex. Images are reviewed in the axial, sagittal, and coronal planes. 3-D MIPS images are created and assessed. IV contrast was administered without complication. All measurements were obtained according to NASCET criteria. A dose lowering technique was utilized adhering to the principles of ALARA. FINDINGS: CT BRAIN: There is no acute intracranial hemorrhage, midline shift, hydrocephalus, intracranial mass, territorial ischemia or abnormal extra-axial collections. Involutional changes with chronic microvascular ischemic disease. Coarse calcifications of the falx cerebri redemonstrated. No abnormal intra-axial or extra-axial enhancement. Mastoid air cells and middle ear cavities are clear. No calvarial fracture. Paranasal sinuses are clear. CT ANGIOGRAM OF THE BRAIN: The imaged bilateral internal carotid arteries are patent. The bilateral anterior and middle cerebral arteries are also patent. The vertebrobasilar system and posterior cerebral arteries are widely patent. There is no aneurysm, high-grade stenosis, or proximal branch occlusion identified. Dural sinuses appear patent. IMPRESSION: 1. No acute intracranial abnormality. 2. Unremarkable CTA of the head. ACT 112: Negative or not required by law. The above report was generated using voice recognition software. It may contain grammatical, syntax or spelling errors. Electronically signed by: Gian Carlton M.D. 03/07/2024 12:10 PM Neck CTA 03/07/24 11:07 NECK CTA HISTORY: ? dizzy TECHNIQUE: Multiaxial CT images of the neck were performed following the intravenous administration of contrast to evaluate the major cervical vessels. 3D/MIP images were also obtained. Sagittal and coronal reformats were reviewed. All measurements were calculated based on NASCET criteria. A dose lowering technique was utilized adhering to the principles of ALARA. COMPARISON STUDY: Cervical spine CT 02/13/2024. FINDINGS: The visualized aortic arch is normal in caliber. There is up to 60% stenosis within the proximal left subclavian artery due to the calcified plaque. There is 50% stenosis within the proximal right subclavian artery due to the calcified plaque. No significant stenosis, occlusion, or dissection within the bilateral vertebral arteries. No significant stenosis or occlusion within the bilateral common carotid arteries. There is severe calcified plaque within the bilateral carotid bifurcations and proximal internal carotid arteries. This results in up to 80% stenosis within the proximal right internal carotid artery best seen on image 234. There is high-grade/critical stenosis of greater than 90% within the proximal left internal carotid artery near the takeoff due to the extensive calcified plaque. The mid to distal bilateral internal carotid arteries are widely patent. IMPRESSION: 1. Severe calcified plaque within the bilateral carotid bifurcations and proximal internal carotid arteries. This results in up to 80% stenosis within the proximal right internal carotid artery and high-grade/critical stenosis of greater than 90% within the proximal left internal carotid artery. 2. The bilateral vertebral arteries are patent. 3. Mild stenosis within the proximal bilateral subclavian arteries. ACT 112: Negative or not required by law. Electronically signed by: Caleb Simmons M.D. 03/07/2024 12:02 PM Discharge Plan Visit Data Chief Complaint: Nausea Stated Complaint: NAUSEA, VOMITING, HEADACHE, DIZZINESS ED Provider: Abdirahman Unger Discharge Problem: Dizziness, Elevated troponin, Vomiting Forms Stand Alone Forms: My [employer] Prescriptions Prescriptions: No Action levothyroxine 200 mcg Tablet See Rx Instructions .ROUTE .COMPLEX Patient Comments: takes 200 mcg with 25 mcg for dose of 225 mcg Rx Instructions: Take 200mcg w/ 25mcg once every morning to equal 225mcg cyanocobalamin (vitamin B-12) [Vitamin B-12] 1,000 mcg Tablet 1,000 mcg PO QAM cholecalciferol (vitamin D3) [Vitamin D3] 50 mcg (2,000 unit) Capsule 50 mcg PO QAM levothyroxine 25 mcg Tablet See Rx Instructions .ROUTE .COMPLEX Patient Comments: takes with 200 mcg Rx Instructions: Take 25mcg w/ 200mcg once every morning to equal 225mcg Eliquis 5 mg tablet 5 mg PO BID Qty: 60 0RF potassium chloride 20 mEq Tablet Extended Release 20 meq PO DAILY Qty: 30 0RF metformin 500 mg Tablet 500 mg PO BID pravastatin 40 mg Tablet 40 mg PO HS famotidine [Pepcid] 20 mg Tablet 20 mg PO DAILY PRN (Reason: Acid Reflux) Patient Comments: hardly uses ciprofloxacin HCl 500 mg Tablet 500 mg PO BID Qty: 60 0RF Rx Instructions: LAST FILLED 01/16/24 FOR 30 DAYS metoprolol tartrate 25 mg Tablet 12.5 mg PO BID Qty: 0 0RF acetaminophen 325 mg Tablet 650 mg PO Q4H MDD 3gm/24hr PRN (Reason: Pain) midodrine 5 mg tablet 5 mg PO TID tramadol 50 mg tablet 50 mg PO Q6H PRN (Reason: Pain) metronidazole 500 mg tablet 500 mg PO Q8H Referrals Referrals: Tanisha Reyes MD [Primary Care Provider] - Discharge Problem: Vomiting Qualifiers: Vomiting type: unspecified Nausea presence: unspecified Qualified Code(s): R 11.10 - Vomiting, unspecified
[2024-03-07] MEDS: SODIUM CHLORIDE 0.9% 1,000 ML IV ONE (09:08)
[2024-03-07 09:09] LABS: Basophils # (auto) 0.06 K/uL (0.00-0.20); Basophils % (auto) 0.7 %; Eosinophils # (auto) 0.08 K/uL (0.00-0.50); Eosinophils % (auto) 0.9 %; Hematocrit (blood only) 40.1 % (37.0-47.0); Hemoglobin 12.5 g/dl (12.0-16.0); Immature Granulocytes # (auto) 0.04 K/uL (0.01-0.20); Immature Granulocytes % (auto) 0.5 %; Lymphocytes # (auto) 1.52 K/uL (1.20-3.40); Lymphocytes % (auto) 17.8 %; Mean Corpuscular Hemoglobin 29.1 pg (25.0-34.0); Mean Corpuscular Hgb Conc 31.2 g/dL (32.0-36.0); Mean Corpuscular Volume 93.5 fL (80.0-100.0); Mean Platelet Volume 10.9 fL (9.4-12.4); Monocytes # (auto) 0.69 K/uL (0.11-0.59); Monocytes % (auto) 8.1 %; Neutrophils # (auto) 6.16 K/uL (1.40-6.50); Platelet Count 349 K/uL (130-400); RDW Standard Deviation 54.9 fL (36.4-46.3); Red Blood Count 4.29 M/uL (4.20-5.40); White Blood Count 8.55 K/ul (4.8-10.8)
[2024-03-07] MEDS: ONDANSETRON INJ 2 MG/ML 2 ML VIAL IV STA (09:09)
[2024-03-07 09:34] LABS: Albumin Globulin Ratio 1.1 (0.9-2); Albumin Level 3.8 gm/dl (3.4-5.0); BUN Creatinine Ratio 16.3 (10-20); Bilirubin,Total 0.6 mg/dl (0.2-1.0); Calcium 8.8 mg/dl (8.6-10.3); Est GFR (African American) 70.1 ml/min; Est GFR (Non-African American) 60.5 ml/min; Globulin 3.4 gm/dl (2.5-4.0); Potassium 4.3 mmol/L (3.5-5.1); Total Protein 7.2 gm/dl (6.0-8.3)
[2024-03-07 09:40] LABS: Troponin I High Sensitivity 15.1 pg/ml (0-14)
--- NOTE | 2024-03-07 09:44 | XRay Report ---
XR chest 1V portable HISTORY: Chest pain, nonspecific COMPARISON: Chest 02/13/2024. FINDINGS: The cardiac silhouette remains mildly enlarged. A few bibasilar linear densities favor subs egmental atelectasis are scarring. This is similar to the prior study. No pneumothorax. No pleural ef fusions. No new focal lung consolidations to suggest a pneumonia. No evidence for pulmonary edema. IMPRESSION: No significant change compared to the prior study. No acute process. ACT 112: Negative or not required by law. Electronically signed by: Caleb Simmons M.D. 03/07/2024 9:43 AM
[2024-03-07] MEDS: OPTIRAY 320 125ml IV ONE (11:15)
--- NOTE | 2024-03-07 12:05 | CT Scan Report ---
NECK CTA HISTORY: ? dizzy TECHNIQUE: Multiaxial CT images of the neck were performed following the intravenous administration o f contrast to evaluate the major cervical vessels. 3D/MIP images were also obtained. Sagittal and cor onal reformats were reviewed. All measurements were calculated based on NASCET criteria. A dose low ering technique was utilized adhering to the principles of ALARA. COMPARISON STUDY: Cervical spine CT 02/13/2024. FINDINGS: The visualized aortic arch is normal in caliber. There is up to 60% stenosis within the pro ximal left subclavian artery due to the calcified plaque. There is 50% stenosis within the proximal r ight subclavian artery due to the calcified plaque. No significant stenosis, occlusion, or dissection within the bilateral vertebral arteries. No significant stenosis or occlusion within the bilateral c ommon carotid arteries. There is severe calcified plaque within the bilateral carotid bifurcations an d proximal internal carotid arteries. This results in up to 80% stenosis within the proximal right in ternal carotid artery best seen on image 234. There is high-grade/critical stenosis of greater than 9 0% within the proximal left internal carotid artery near the takeoff due to the extensive calcified p laque. The mid to distal bilateral internal carotid arteries are widely patent. IMPRESSION: 1. Severe calcified plaque within the bilateral carotid bifurcations and proximal internal carotid ar teries. This results in up to 80% stenosis within the proximal right internal carotid artery and high -grade/critical stenosis of greater than 90% within the proximal left internal carotid artery. 2. The bilateral vertebral arteries are patent. 3. Mild stenosis within the proximal bilateral subclavian arteries. ACT 112: Negative or not required by law. Electronically signed by: Caleb Simmons M.D. 03/07/2024 12:02 PM
--- NOTE | 2024-03-07 12:11 | CT Scan Report ---
CT angio head wo/w CLINICAL HISTORY: 78 years-old Female with dizzy. Acute dizziness COMPARISON STUDY: CT neck of same day, DARCIE 02/13/2024 TECHNIQUE: Unenhanced axial CT scan of the brain is performed. Subsequently, following the IV adminis tration of 118 cc of Optiray, CT angiogram of the brain was performed from the skull base to the vert ex. Images are reviewed in the axial, sagittal, and coronal planes. 3-D MIPS images are created and a ssessed. IV contrast was administered without complication. All measurements were obtained according to NASCET criteria. A dose lowering technique was utilized adhering to the principles of ALARA. FINDINGS: CT BRAIN: There is no acute intracranial hemorrhage, midline shift, hydrocephalus, intracranial mass, territori al ischemia or abnormal extra-axial collections. Involutional changes with chronic microvascular isch emic disease. Coarse calcifications of the falx cerebri redemonstrated. No abnormal intra-axial or ex tra-axial enhancement. Mastoid air cells and middle ear cavities are clear. No calvarial fracture. P aranasal sinuses are clear. CT ANGIOGRAM OF THE BRAIN: The imaged bilateral internal carotid arteries are patent. The bilateral anterior and middle cerebral arteries are also patent. The vertebrobasilar system and posterior cerebral arteries are widely mccullough nt. There is no aneurysm, high-grade stenosis, or proximal branch occlusion identified. Dural sinuses appear patent. IMPRESSION: 1. No acute intracranial abnormality. 2. Unremarkable CTA of the head. ACT 112: Negative or not required by law. The above report was generated using voice recognition software. It may contain grammatical, syntax o r spelling errors. Electronically signed by: Gian Carlton M.D. 03/07/2024 12:10 PM
[2024-03-07] MEDS: MECLIZINE HCL 25 MG TAB PO STA (12:33)
--- NOTE | 2024-03-07 12:57 | History & Physical Report ---
Date of Service March 07, 2024 Assessment & Plan (1) CVA (cerebral vascular accident): Plan: Presyncopal episode on the evening of 03/05, then dizziness/nausea/vomiting on 03/06 Hx of vertigo; patient reports this feels prior to similar episodes; not currently on medications Head CTA revealed no acute intracranial abnormalities Brain MRI w/wo revealed an acute v. subacute lacunar infarct in the corpus callosum Neck CTA revealed 80% stenosis within the proximal right ICA and 90% stenosis within the left ICA Vascular surgery consulted, as this is a symptomatic stroke (on Eliquis) in the setting of severe stenosis ASA 324 mg given Continue aspirin 81 mg daily Echocardiogram with bubble study ordered, pending Neurochecks q4h Patient passed dysphagia screen in the ED, okay to eat; no slurred speech Neurology consulted Meclizine 12.5 mg p.o. q6h as needed for vertigo A.m. CBC, BMP, mag, A1c, fasting lipid panel (2) Vomiting: Plan: Zofran as needed; QTc okay (3) Orthostasis: Plan: Continue midodrine (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: Plan: Ostomy care QS Continue ciprofloxacin and metronidazole (5) CHF (congestive heart failure): Plan: Last echo revealed LVEF at 60 to 65% Not currently taking torsemide; will hold potassium supplementation (6) Diabetes mellitus, type 2: Plan: Last A1c at 6.5% on 12/08/2023 Glucose 155 on admission Hold metformin SSI; with target BSG range 110-140mg/dL, CF 30, carb ratio 10 T2DM diet BSG ACHS Adjust regimen as needed (7) Hypomagnesemia: Plan: Magnesium 1.4 on arrival Magnesium sulfate 1 g x 2 Recheck a.m. labs (8) Elevated troponin: (9) Postural lightheadedness: (10) Vertigo: Plan: Meclizine 12.5 mg p.o. q6h as needed for vertigo Plan Disposition: Initially Obs/MedSurg telemetry --> Transferred to PCU telemetry following brain MRI results DNR/DNI AHA, T2DM diet VTE PPx: On Eliquis History of Present Illness Chief Complaint: Nausea, dizziness Primary Care Provider: Tanisha Reyes MD Symone is a 78-year-old female with PMH of Crohn's disease s/p total proctocolectomy, colostomy status, T2DM, CESAR, GERD, cirrhosis, CHF, and DVT (on Eliquis). She presented via EMS for nausea, vomiting, and dizziness that started the evening of 03/06. Patient ambulates with a walker at baseline. She lives in independent living at [place]. She reports that she had a presyncopal episode on Thursday night 03/05, when she was bring taking for a sh ower. She then developed nausea/dizziness/dry heaves on Thursday afternoon. She does note that she has a history of vertigo, and that she has had nausea/vomiting with vertigo in the past. However, this nausea\\vomiting kept her up all night. No recent falls, injuries to the head or neck, or trauma. Patient did not take any additional medications for the dizziness or vomiting. She does not currently have any medications for vertigo. Patient is unsure if the room was spinning, or that if she just felt dizzy whenever she stood. She does note that she has orthostasis, which has been on going issue; takes midodrine. She did not take any of her regular morning medications; no recent change in medications. Patient reports that she ate a cheese omelette and sausage on Thursday morning for breakfast, and has not had anything unique to eat, or any recent changes in diet. No sick contacts. Patient is SpO2 93% on RA; vitals stable at time of admission. ED course: NSS 1000 mL IV Zofran 4 mg IV Meclizine 25 mg p.o. ROS: Patient endorses dizziness with standing, hand numbness/tingling (which is new), left-hip pain (ongoing), nausea, dry heaves/vomiting last night, and chronic neuropathy in the feet. Patient denies fever, chills, night-sweats, body aches, headaches, change in vision, facial droop, ear pressure/pain, neck pain/stiffness, chest pain, SOB, chest palpitations, cough, pleuritic CP, abdominal pain, urinary s/s, burning with urination, or blood in colostomy bag or urine. Allergies Allergy/AdvReac Type Severity Reaction Status Date / Time red dye Allergy Severe Anaphylaxis Verified 03/07/24 12:38 Home Medications Medication Instructions Recorded Confirmed Type famotidine 20 mg tablet (Pepcid) 20 mg PO DAILY PRN Acid Reflux 09/18/22 03/07/24 History metformin 500 mg tablet 500 mg PO BID 09/18/22 03/07/24 History pravastatin 40 mg tablet 40 mg PO HS 09/18/22 03/07/24 History levothyroxine 200 mcg tablet See Rx Instructions .Route .COMPLEX 12/03/22 03/07/24 History cholecalciferol (vitamin D3) 50 50 mcg PO QAM 02/27/23 03/07/24 History mcg (2,000 unit) capsule (Vitamin D3) cyanocobalamin (vitamin B-12) 1,000 mcg PO QAM 02/27/23 03/07/24 History 1,000 mcg tablet (Vitamin B-12) levothyroxine 25 mcg tablet See Rx Instructions .Route .COMPLEX 12/07/23 03/07/24 History apixaban 5 mg tablet (Eliquis) 5 mg PO BID #60 tabs 12/09/23 03/07/24 Rx potassium chloride 20 mEq 20 meq PO DAILY takes when taking 12/20/23 03/07/24 Rx tablet,extended release torsemide #30 tabs ciprofloxacin HCl 500 mg tablet 500 mg PO BID #60 tabs 12/29/23 03/07/24 Rx metoprolol tartrate 25 mg tablet 12.5 mg (1/2 x 25 mg) PO BID #0 02/18/24 03/07/24 Rx tabs acetaminophen 325 mg tablet 650 mg PO Q4H PRN Pain 03/07/24 03/07/24 History metronidazole 500 mg tablet 500 mg PO Q8H 03/07/24 03/07/24 History midodrine 5 mg tablet 5 mg PO TID 03/07/24 03/07/24 History tramadol 50 mg tablet 50 mg PO Q6H PRN Pain 03/07/24 03/07/24 History Past Med/Surg History Medical History (Updated 03/08/24 @ 10:36 by Cuong Chowdary MD) Depression Pulmonary embolism, bilateral CHF (congestive heart failure) Abdominal fistula Mass of spine Morbid obesity with BMI of 50.0-59.9, adult Osteoarthritis Ileostomy in place Ulcerative colitis Hypothyroidism Diabetes mellitus, type 2 on metformin daily History of pulmonary embolism "at least 10yrs ago"--unknown cause, was on blood thinners, but then taken off--per pt no issues currently Heart murmur follows with PCP--no [facility] intern Surgical History History of benign breast biopsy History of total left knee replacement (TKR) History of total right knee replacement (TKR) History of gastric bypass History of hernia surgery History of cholecystectomy History of appendectomy History of colonoscopy and ileoscopy History of esophagogastroduodenoscopy (EGD) History of colon resection performed about 20yrs ago d/t ulcerative colitis---has ileostomy History of tooth extraction History of wisdom tooth extraction History of thyroidectomy, total d/t nodules History of bilateral cataract extraction Family History Sister Family history of reaction to anesthesia nausea/vomiting Social History Smoking Status: Never smoker Second Hand Exposure: No; Do You Dip or Chew Tobacco: No; Hx Alcohol Use: No Hx Substance Use: No Preferred Language: Lithuanian Communication Ability: Effective Home Visitor Required: No Beliefs That Will Affect Care: None Current Living Situation: [facility] Current Living Situation Comment: [facility] Other Information That Helps Us Care for You: No Feels Safe at Home: Yes Safety Concerns: Feels Safe At This Time Assistive Devices: Glasses and Hospital Bed Review of Systems Review of Systems: See HPI above Physical Exam Physical Exam: General: no acute distress; non-toxic appearing; well-nourished; cooperative; 98% SpO2 on RA HEENT: normocephalic, atraumatic; no scleral icterus; PERRLA w/ EOMs intact; moist mucus membrane; patient demonstrates ability to wiggle tongue bilaterally; cerumen in the left ear canal; cerumen in the right ear canal, however able to visualize pearly brown TM; vision and hearing grossly intact Neck: supple; no lymphadenopathy; trachea midline; no carotid bruits appreciated; patient is able to shrug shoulders and rotate neck against resistance without pain or dizziness Skin: warm, dry without signs of tenting; no cyanosis; no rashes, bruising, lesions, or erythema noted CV: chest wall NTP; irregularly irregular rhythm; S1/S2 normal; no murmurs/rubs/gallops; pulses intact and symmetric at radial, DP, and PT Lungs: no acute respiratory distress; symmetrical chest wall expansion; clear breath sounds across all lung shultz w/o adventitious sounds; no wheezing ABD: Soft, NTP; BS present; no rebound/guarding; distention secondary to body habitus; colostomy in place MSK: no tics or fasciculations; nonpitting edema noted in the LEs b/l, nonerythematous Neuro: A&Ox3; normal mood and affect; fluent speech; no facial droop; no focal deficits; sensation intact and symmetric in upper extremities, but notes diminished / no sensation in lower extremities below the knee bilaterally Results & Data Results & Data Vital Signs (Past 12 Hours) Vital Signs Pulse Pulse Resp BP BP Pulse Ox O2 Del Method 03/07/24 12:54 95 H 03/07/24 12:34 88 19 113/71 93 Room Air 03/07/24 11:00 92 H 14 03/07/24 10:50 90 15 03/07/24 10:40 93 H 18 03/07/24 10:30 94 H 15 03/07/24 10:20 83 15 03/07/24 10:10 102 H 20 03/07/24 10:00 75 12 03/07/24 09:50 80 15 03/07/24 09:40 81 16 03/07/24 09:30 80 12 03/07/24 09:20 86 23 03/07/24 09:10 94 H 16 98 03/07/24 09:00 84 15 98 03/07/24 08:56 89 03/07/24 08:50 80 14 97 03/07/24 08:45 87 19 97 Room Air 03/07/24 08:40 87 15 97 03/07/24 08:37 99 H 14 97 03/07/24 08:18 87 19 143/84 H 97 Room Air Laboratory Results Abnormal lab results 03/07/24 Range/Units 08:30 MCHC 31.2 L (32.0-36.0) g/dL RDW Std Deviation 54.9 H (36.4-46.3) fL RDW Coeff of Laurie 16.0 H (11.5-14.5) % [place] # (Auto) 0.69 H (0.11-0.59) K/uL Chloride 108 H (98-107) mmol/L Glucose 155 H (70-99(Fasting)) mg/dl Troponin I High Sens 15.1 H (0-14) pg/ml Diagnostic Findings Chest X-Ray 03/07/24 08:45 XR chest 1V portable HISTORY: Chest pain, nonspecific COMPARISON: Chest 02/13/2024. FINDINGS: The cardiac silhouette remains mildly enlarged. A few bibasilar linear densities favor subsegmental atelectasis are scarring. This is similar to the prior study. No pneumothorax. No pleural effusions. No new focal lung consolidations to suggest a pneumonia. No evidence for pulmonary edema. IMPRESSION: No significant change compared to the prior study. No acute process. ACT 112: Negative or not required by law. Electronically signed by: Caleb Simmons M.D. 03/07/2024 9:43 AM Head CTA 03/07/24 08:45 CT angio head wo/w CLINICAL HISTORY: 78 years-old Female with dizzy. Acute dizziness COMPARISON STUDY: CT neck of same day, DARCIE 02/13/2024 TECHNIQUE: Unenhanced axial CT scan of the brain is performed. Subsequently, following the IV administration of 118 cc of Optiray, CT angiogram of the brain was performed from the skull base to the vertex. Images are reviewed in the axial, sagittal, and coronal planes. 3-D MIPS images are created and assessed. IV contrast was administered without complication. All measurements were obtained according to NASCET criteria. A dose lowering technique was utilized adhering to the principles of ALARA. FINDINGS: CT BRAIN: There is no acute intracranial hemorrhage, midline shift, hydrocephalus, intracranial mass, territorial ischemia or abnormal extra-axial collections. Involutional changes with chronic microvascular ischemic disease. Coarse calcifications of the falx cerebri redemonstrated. No abnormal intra-axial or extra-axial enhancement. Mastoid air cells and middle ear cavities are clear. No calvarial fracture. Paranasal sinuses are clear. CT ANGIOGRAM OF THE BRAIN: The imaged bilateral internal carotid arteries are patent. The bilateral anterior and middle cerebral arteries are also patent. The vertebrobasilar system and posterior cerebral arteries are widely patent. There is no aneurysm, high-grade stenosis, or proximal branch occlusion identified. Dural sinuses appear patent. IMPRESSION: 1. No acute intracranial abnormality. 2. Unremarkable CTA of the head. ACT 112: Negative or not required by law. The above report was generated using voice recognition software. It may contain grammatical, syntax or spelling errors. Electronically signed by: Gian Carlton M.D. 03/07/2024 12:10 PM Neck CTA 03/07/24 11:07 NECK CTA HISTORY: ? dizzy TECHNIQUE: Multiaxial CT images of the neck were performed following the intravenous administration of contrast to evaluate the major cervical vessels. 3D/MIP images were also obtained. Sagittal and coronal reformats were reviewed. All measurements were calculated based on NASCET criteria. A dose lowering technique was utilized adhering to the principles of ALARA. COMPARISON STUDY: Cervical spine CT 02/13/2024. FINDINGS: The visualized aortic arch is normal in caliber. There is up to 60% stenosis within the proximal left subclavian artery due to the calcified plaque. There is 50% stenosis within the proximal right subclavian artery due to the calcified plaque. No significant stenosis, occlusion, or dissection within the bilateral vertebral arteries. No significant stenosis or occlusion within the bilateral common carotid arteries. There is severe calcified plaque within the bilateral carotid bifurcations and proximal internal carotid arteries. This results in up to 80% stenosis within the proximal right internal carotid artery best seen on image 234. There is high-grade/critical stenosis of greater than 90% within the proximal left internal carotid artery near the takeoff due to the extensive calcified plaque. The mid to distal bilateral internal carotid arteries are widely patent. IMPRESSION: 1. Severe calcified plaque within the bilateral carotid bifurcations and proximal internal carotid arteries. This results in up to 80% stenosis within the proximal right internal carotid artery and high-grade/critical stenosis of greater than 90% within the proximal left internal carotid artery. 2. The bilateral vertebral arteries are patent. 3. Mild stenosis within the proximal bilateral subclavian arteries. ACT 112: Negative or not required by law. Electronically signed by: Caleb Simmons M.D. 03/07/2024 12:02 PM ECG Additional Comments: EKG read atrial fibrillation at 91 bpm on arrival; QTc 447 P waves present; this is not atrial fibrillation despite multiple recent EKGs reading atrial fibrillation Code Status & VTE Plan Code Status DNR/DNI VTE Prophylaxis Plan VTE Prophylaxis will be ordered: Yes Supervising Physician Co-Signing Physician Notes I personally saw and examined the patient. I independently reviewed the labs, EKG, imaging, problem list, medication list, past medical history and family history. I verified all sams points and agree with Caleb Beltran PA-C with the following exceptions and/or additions: 78-year-old female presents to the ER with nausea vomiting and dizziness. She reports this is similar to her prior episodes except for the nausea vomiting. She denies any abdominal pain or change in bowel movements. She describes the dizziness as both vertigo and lightheadedness. No prior brain MRI performed. O/E HS irregular rhythm, regular rate, no murmurs, Chest CTAB, no nystagmus, PERRL, no CVA tenderness, no pronator drift, CN2->12 intact, motor strength normal upper and lower extremities, no sensory deficit A/P Acute CVA - noted on brain MRI, suspect secondary to carotid artery disease, start aspirin (she gets reflux on this therefore also made her famotidine scheduled), stroke protocol added, consult neurology, consult vascular surgery Multifocal ectopic pacemaker - multiple EKGs originally interpreted as atrial fibrillation but p waves are present. She does not have atrial fibrillation. Nausea/vomiting - ?due to CVA ?gastritis/GERD ?vertigo, will await neurology input, ondansetron q4h PRN, no abdominal pain to suggest need for imaging Otherwise as above PG Care Time/CCT Total # of Minutes Spent Total Time Spent with Patient: Total time spent is greater than 50% in coordination of care (as documented) at patient's floor/unit and/or counseling patient: Coding [place] [address] INT INP/OBS CARE 3/75MIN Patient Type Established Medical Decision Making High Complexity Diagnoses CVA (cerebral vascular accident) I63.9 Vomiting R11.10 Nausea presence: unspecified Vomiting type: unspecified Orthostasis I95.[address] Z93.2 CHF (congestive heart failure) I50.9 Heart failure chronicity: acute Heart failure type: unspecified Diabetes mellitus, type 2 E11.9 Hypomagnesemia E83.42 Elevated troponin R79.89 Postural lightheadedness R42 Vertigo R42 (2) Vomiting Nausea presence: unspecified Vomiting type: unspecified Qualified Code(s): R11.10 - Vomiting, unspecified (5) CHF (congestive heart failure) Heart failure chronicity: acute Heart failure type: unspecified Qualified Code(s): I50.9 - Heart failure, unspecified
[2024-03-07] MEDS ORDERED: GLUCOSE 10 TAB/TUBE PO PRN (14:23)
[2024-03-07] MEDS ORDERED: FAMOTIDINE 20 MG TAB PO PRN (14:23)
[2024-03-07] MEDS ORDERED: GLUCAGON FOR INJ 1 MG VIAL SQ PRN (14:23)
[2024-03-07] MEDS ORDERED: DEXTROSE 50% 50 ML SYRINGE IV PRN (14:23)
[2024-03-07] MEDS ORDERED: ONDANSETRON INJ 2 MG/ML 2 ML VIAL IV PRN (14:23)
[2024-03-07] MEDS ORDERED: CARBOHYDRATES FOR HYPOGLYCEMIA PO PRN (14:23)
[2024-03-07] MEDS ORDERED: GLUCOSE 40% GEL 15 GM TUBE PO PRN (14:23)
[2024-03-07 15:09] LABS: Magnesium 1.4 mg/dl (1.7-2.4)
[2024-03-07] MEDS: traMADol HCL 50 MG TABLET PO PRN (15:58)
[2024-03-07] MEDS: INSULIN ASPART PER UNIT CHARGE SC SCH (16:18)
[2024-03-07] MEDS: metroNIDAZOLE 500 MG TAB PO SCH (16:25)
[2024-03-07] MEDS: GADOBUTROL 65ML VIAL IV ONE (18:25)
--- NOTE | 2024-03-07 19:24 | Magnetic Resonance Report ---
MR brain wo/w con HISTORY: 78 years-old Female Nausea/vomiting, dizziness acute dizziness with nausea and vomiting COMPARISON: CTA head of same day TECHNIQUE: Multiplanar multisequence MRI of the brain was obtained with and without IV contrast. FINDINGS: 7 mm focus of increased diffusion-weighted signal involves the m of the corpus callosum on image 13 s eries 9 with intermediate signal on ADC map and mildly increased T2/STIR signal. No acute or subacute territorial infarct. Midline structures are unremarkable with partially empty sella. Degenerative ch anges of the cervical spine. No acute intracranial hemorrhage, midline shift, abnormal extra-axial collection, hydrocephalus or in tra-axial mass. Involutional changes with [id number] T2/FLAIR hyperintense foci throughout the white matter. No abnormal enhancement. Cerebral venous sinuses and major arterial flow voids appear p atent. Skull, orbits and soft tissues are unremarkable. Mastoid air cells and paranasal sinuses appea r clear. IMPRESSION: 1. Subcentimeter acute versus subacute lacunar infarct is noted within the splenium of the corpus marixa losum. 2. Involutional changes with chronic microvascular ischemic disease. 3. No abnormal enhancement. ACT 112: Negative or not required by law. The above report was generated using voice recognition software. It may contain grammatical, syntax o r spelling errors. Electronically signed by: Gian Carlton M.D. 03/07/2024 7:22 PM
[2024-03-07] MEDS ORDERED: PHARMACIST DISCHARGE MED REC CONSULT PRN (20:57)
[2024-03-07] MEDS: LACTATED RINGER'S 1,000 ML IV SCH (21:32)
[2024-03-07] MEDS: MAGNESIUM SULFATE / D5W 1 GM/100 ML BAG IV SCH (21:32)
[2024-03-07 23:11] LABS: Appearance Urine Clear (Clear); Bacteria Urine Automated None Seen (None Seen); Bilirubin Urine Negative (Negative); Blood Urine Negative (Negative); Color Urine Yellow; Epithelial Cell Urine Auto 0-2 /hpf (0-2); Glucose Urine UA Negative (Negative); Ketones Urine Trace (Negative); Leukocyte Esterase Urine Trace (Negative); Nitrite Urine Negative (Negative); Protein Urine Negative (Negative); RBC Urine Automated 0-2 /hpf (0-2); Specific Gravity Urine > 1.045 (1.000-1.030); Urobilinogen Urine Negative (Negative); WBC Urine Automated 0-5 /hpf (0-5)
[2024-03-07] MEDS: MIDODRINE HCL 2.5 MG TAB PO SCH (23:16)
[2024-03-07] MEDS: FAMOTIDINE 20 MG TAB PO SCH (23:51)
[2024-03-07] MEDS: APIXABAN 5 MG TABLET PO SCH (23:51)
[2024-03-07] MEDS: CIPROFLOXACIN 500 MG TAB PO SCH (23:52)
[2024-03-07] MEDS: PRAVASTATIN SOD 40 MG TAB PO SCH (23:52)
[2024-03-07] MEDS: METOPROLOL TARTRATE 25 MG TAB PO SCH (23:52)
[2024-03-07] MEDS: ASPIRIN 81 MG CHEW PO STA (23:57)
[2024-03-08] MEDS: LEVOTHYROXINE SODIUM 200 MCG TABLET PO SCH (05:40)
[2024-03-08] MEDS: LEVOTHYROXINE SODIUM 25 MCG TABLET PO SCH (05:40)
[2024-03-08 06:16] LABS: Basophils # (auto) 0.06 K/uL (0.00-0.20); Eosinophils # (auto) 0.16 K/uL (0.00-0.50); Eosinophils % (auto) 2.6 %; Hematocrit (blood only) 33.1 % (37.0-47.0); Hemoglobin 10.4 g/dl (12.0-16.0); Immature Granulocytes # (auto) 0.02 K/uL (0.01-0.20); Immature Granulocytes % (auto) 0.3 %; Lymphocytes # (auto) 1.08 K/uL (1.20-3.40); Lymphocytes % (auto) 17.6 %; Mean Corpuscular Hemoglobin 29.2 pg (25.0-34.0); Mean Corpuscular Hgb Conc 31.4 g/dL (32.0-36.0); Mean Platelet Volume 10.6 fL (9.4-12.4); Monocytes # (auto) 0.64 K/uL (0.11-0.59); Monocytes % (auto) 10.4 %; Neutrophils # (auto) 4.17 K/uL (1.40-6.50); Neutrophils % (auto) 68.1 %; Platelet Count 285 K/uL (130-400); RDW Coefficient of Variation 15.9 % (11.5-14.5); RDW Standard Deviation 54.4 fL (36.4-46.3); Red Blood Count 3.56 M/uL (4.20-5.40); White Blood Count 6.13 K/ul (4.8-10.8)
[2024-03-08 06:34] LABS: BUN Creatinine Ratio 14.7 (10-20); Calcium 8.1 mg/dl (8.6-10.3); Chol HDL Ratio 2.7 (0-5); Creatinine Clr Calc Pharmacy 98.1 ml/min; Est GFR (African American) 89.7 ml/min; Est GFR (Non-African American) 77.4 ml/min; Magnesium 1.9 mg/dl (1.7-2.4)
[2024-03-08 07:08] LABS: Estimated Average Glucose 146 mg/dl; Hemoglobin A1C 6.7 % (4.5-5.6)
[2024-03-08] MEDS: ASPIRIN 81 MG ECTAB PO SCH (08:12)
--- NOTE | 2024-03-08 10:45 | Neurology Consultation ---
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 She has bilateral carotid stenosis, 80% on the right, 90% on the left. Previous ECGs have revealed PVCs and PACs, recent ECGs potentially suggestive of atrial fibrillation although unconfirmed. She is already on Eliquis in light of a history of multiple DVT/PE. The above stroke location is a bit unusual and her presenting symptoms were nonspecific. Metabolic and nutritional factors are also known to associate with bright DWI lesions within the splenium of the corpus callosum. No known history of alcohol use disorder. No obvious metabolic derangement at this time. Agree with vascular surgery consultation regarding severe bilateral ICA stenosis as above. Continue with Eliquis as ordered. Agree with the addition of aspirin 81 mg/day. Agree with continuation of pravastatin as ordered. Patient's LDL is 45 (goal LDL less than 70) Continue to monitor patient's orthostasis, tendency for hypotension. She is not on any antihypertensives at this time. Patient will need to maintain adequate hydration going forward. She could have an element of dysautonomia related to peripheral neuropathy (diabetic?) Her hemoglobin A1c is 6.7, however. Consultations with PT/OT May follow-up with myself or an FIDELINA in neurology clinic in 2 to 3 weeks for further assessment of possible peripheral neuropathy. Would check a vitamin B12 and thiamine level. Please contact me with any questions. Thank you for the consult. History of Present Illness Reason for Consultation: stroke Requesting Physician: Devin Attending Physician: Jared Mayo History of Present Illness The patient is a 78-year-old female with a history of DVT, PE, postural dizziness, orthostasis, history of cirrhosis of the liver, no known history of alcohol use disorder, diabetes mellitus, diabetic neuropathy, Crohn's disease, status post colectomy, recent discharge from the [facility] on February 18, 2024 in the context of mechanical fall complicated by acute kidney injury, orthostatic syncope, mild rhabdomyolysis. She presented to the emergency department yesterday with a chief complaint of dizziness upon standing with associated nausea and emesis. Denies true vertigo. Describes a feeling of lightheadedness as if she might pass out. Denied any other specific or focal neurologic symptoms such as slurred speech, focal weakness, or vision loss. A CTA of the head and neck revealed severe calcified plaque within the bilateral carotid bifurcations and proximal internal carotid arteries, 80% stenosis on the right, 90% stenosis on the left. Vertebral arteries patent bilaterally. A brain MRI did reveal an acute to subacute appearing subcentimeter ischemic infarct within the splenium of the corpus callosum. The lesion is bright on DW I, no associated dark signal on ADC, however. No abnormal postcontrast enhancement. The abnormality is bright on T2. I independently reviewed these images. Allergies Allergy/AdvReac Type Severity Reaction Status Date / Time red dye Allergy Severe Anaphylaxis Verified 03/07/24 12:38 Home Medications Medication Instructions Recorded Confirmed Type famotidine 20 mg tablet (Pepcid) 20 mg PO DAILY PRN Acid Reflux 09/18/22 03/07/24 History metformin 500 mg tablet 500 mg PO BID 09/18/22 03/07/24 History pravastatin 40 mg tablet 40 mg PO HS 09/18/22 03/07/24 History levothyroxine 200 mcg tablet See Rx Instructions .Route .COMPLEX 12/03/22 03/07/24 History cholecalciferol (vitamin D3) 50 50 mcg PO QAM 02/27/23 03/07/24 History mcg (2,000 unit) capsule (Vitamin D3) cyanocobalamin (vitamin B-12) 1,000 mcg PO QAM 02/27/23 03/07/24 History 1,000 mcg tablet (Vitamin B-12) levothyroxine 25 mcg tablet See Rx Instructions .Route .COMPLEX 12/07/23 03/07/24 History apixaban 5 mg tablet (Eliquis) 5 mg PO BID #60 tabs 12/09/23 03/07/24 Rx potassium chloride 20 mEq 20 meq PO DAILY takes when taking 12/20/23 03/07/24 Rx tablet,extended release torsemide #30 tabs ciprofloxacin HCl 500 mg tablet 500 mg PO BID #60 tabs 12/29/23 03/07/24 Rx metoprolol tartrate 25 mg tablet 12.5 mg (1/2 x 25 mg) PO BID #0 02/18/24 03/07/24 Rx tabs acetaminophen 325 mg tablet 650 mg PO Q4H PRN Pain 03/07/24 03/07/24 History metronidazole 500 mg tablet 500 mg PO Q8H 03/07/24 03/07/24 History midodrine 5 mg tablet 5 mg PO TID 03/07/24 03/07/24 History tramadol 50 mg tablet 50 mg PO Q6H PRN Pain 03/07/24 03/07/24 History Patient History Medical History (Updated 03/08/24 @ 10:36 by Cuong Chowdary MD) Depression Pulmonary embolism, bilateral CHF (congestive heart failure) Abdominal fistula Mass of spine Morbid obesity with BMI of 50.0-59.9, adult Osteoarthritis Ileostomy in place Ulcerative colitis Hypothyroidism Diabetes mellitus, type 2 on metformin daily History of pulmonary embolism "at least 10yrs ago"--unknown cause, was on blood thinners, but then taken off--per pt no issues currently Heart murmur follows with PCP--no sports physiotherapist Surgical History History of benign breast biopsy History of total left knee replacement (TKR) History of total right knee replacement (TKR) History of gastric bypass History of hernia surgery History of cholecystectomy History of appendectomy History of colonoscopy and ileoscopy History of esophagogastroduodenoscopy (EGD) History of colon resection performed about 20yrs ago d/t ulcerative colitis---has ileostomy History of tooth extraction History of wisdom tooth extraction History of thyroidectomy, total d/t nodules History of bilateral cataract extraction Family History Sister Family history of reaction to anesthesia nausea/vomiting Social History Smoking Status: Never smoker Second Hand Exposure: No; Do You Dip or Chew Tobacco: No; Hx Alcohol Use: No Hx Substance Use: No Preferred Language: Citizen Of [place] Communication Ability: Effective Associate Trainer Required: No Beliefs That Will Affect Care: None Current Living Situation: Senior Care Current Living Situation Comment: [facility] Other Information That Helps Us Care for You: No Feels Safe at Home: Yes Safety Concerns: Feels Safe At This Time Assistive Devices: Glasses and Hospital Bed Review of Systems Constitutional: no fever and no chills Eyes: no blind spots and no diplopia Ear, Nose, Mouth, Throat: no hearing loss Respiratory: no cough and no dyspnea Cardiovascular: as per Subjective / HPI and + lightheadedness; no chest pain and no palpitations Gastrointestinal: + nausea and + vomiting Genitourinary: no dysuria Musculoskeletal: + myalgia; no neck pain Integumentary: no rash and no lesions Neurologic: as per Subjective / HPI Psychiatric: no depression and no anxiety Hematologic / Lymphatic: no easy bleeding and no easy bruising Exam (Neuro) Constitutional: well developed and well nourished; no acute distress Eyes: normal visual shultz by confrontation, PERRL and EOM intact bilaterally; no nystagmus Neurologic: Oriented to:: Person, Place and Time Memory: Short Term Intact and Remote Intact Attention: Span Intact and Concentration Intact Speech Fluency: negative Dysarthria or Dysfluency Speech Aphasia: negative Aphasia Fund of Knowledge: Current Events, Past History and Vocabulary Cranial Nerves: Normal II, III, IV, , V, VII, VIII, IX, X, XI and XII Motor Strength: Normal Upper Extremities; negative Normal Lower Extremities Motor Tone: Normal Lower Extremities and Normal Upper Extremities Muscle Bulk/Involuntary Movements: No Involuntary Movements; negative Muscle Atrophy Sensation: negative Light Touch Intact, Pain/Temperature Intact or Propri oception Intact Coordination: Heel-[place] Abnormal; negative Dysdiadochokinesia or Finger-Nose Abnormal Deep Tendon Reflexes: Rt Triceps: 2+, Lt Triceps: 2+, Rt Biceps: 2+, Lt Biceps: 2+, Rt Brachioradialis: 1+, Lt Brachioradialis: 1+, Rt Patellar: 1+, Lt Patellar: 1+, Rt Ankle: 0 and Lt Ankle: 0 Special Tests: negative Babinski Present Details: Gait cannot be tested Results & Data Vital Signs (Past 12 Hours) Vital Signs Temp Pulse Pulse Pulse Resp BP BP 03/08/24 08:28 36.9 C 61 17 119/77 03/08/24 07:20 71 03/08/24 03:49 36.6 C 62 16 103/63 03/08/24 00:05 93 H 03/07/24 23:30 36.5 C 69 18 108/64 Pulse Ox O2 Del Method 03/08/24 08:28 90 Room Air 03/08/24 07:20 03/08/24 03:49 96 Room Air 03/08/24 00:05 03/07/24 23:30 94 Room Air Laboratory Results WBC 6.13, hemoglobin 10.4, hematocrit 33.1, platelet count 285, sodium 141, potassium 4.0, BUN 11, creatinine 0.75, glucose 105, hemoglobin A1c 6.7, calcium 8.1, magnesium 1.9, AST 14, ALT 7, triglycerides 103, cholesterol 106, LDL 45, HDL 40 Diagnostic Findings Brain MRI and CTA of the head and neck are as described in the HPI, I independently reviewed these images. 2 electrocardiograms completed yesterday indicated possible atrial fibrillation, although unconfirmed. An electrocardiogram completed last month revealed sinus rhythm with premature supraventricular complexes. Another ECG at that time revealed a sinus rhythm with PACs. An echocardiogram completed February 14, 2024 revealed normal left ventricular systolic function, mild concentric LVH, mild dilatation of the left atrium. Coding Level of Care Code 53112 INT INP/OBS CARE 3/75MIN Diagnoses CVA (cerebral vascular accident) I63.9 Carotid stenosis, bilateral I65.23 Postural dizziness R42 Time Spent (min) 80 Comment Total time includes patient contact, chart review, counseling, note preparation
--- NOTE | 2024-03-08 11:20 | Pharmacy Report ---
- Date of Service March 08, 2024 - Pharmacy CVA/TIA Medication Review Medications to Prevent Stroke handout has been added to the patients discharge packet. Antiplatelet(s) * aspirin 81mg daily Cholesterol * High intensity statin deferred due controlled LDL. Per neurology consultation notes, "Agree with continuation of pravastatin as ordered. Patient's LDL is 45 (goal LDL less than 70)" DVT Prophylaxis * Eliquis Therapeutic Anticoagulation * Patient currently anticoagulated with Eliquis due to history of VTE Type 2 Diabetes * Patient has T2DM (A1c 6.7% 03/08/24), but per Ofe Schuler PA-C, a diabetes medication with proven CVD benefit will be deferred to their outpatient provider due to familiarity with risks/benefits of such therapies. "Medications to prevent stroke" handout has already been added to the patient's discharge packet, which instructs the patient to follow up with their outpatient provider to evaluate which diabetes medication with proven CVD benefit is best for them
--- NOTE | 2024-03-08 13:38 | Consultation ---
Date of Consultation March 08, 2024 Assessment & Plan (1) Carotid stenosis, bilateral: Pt does have significant BL carotid stenosis, which is unrelated to her sx of dizziness/N/V. She does not believe her draining sinus is infected, however, she is on cipro chronically and states this is for her sinus. She has hx of CHF, EF 50-55% last month, but has not had a formal cardiology workup/evaluation, which would be required in order to consider her for major vascular surgery. Pt discussed with Dr Vazquez. Since she is asymptomatic from her carotid stenosis, would recommend eval in office in a few weeks to discuss surgery options. Pt is agreeable. History of Present Illness Reason for Consultation: carotid stenosis Attending Physician: Jared Mayo History of Present Illness 78 yo f with multiple medical problems, including arthritis, hx of DVT/PE, liver cirrhosis, CKD, vertigo, UC s/p proctatectomy/ colectomy with colostomy, open draining sinus from surgery, GERD, hypothyroidism, CHF, DMII, admitted after severe dizziness/N/V at home and found to have carotid stenosis, seen in consultation today for same. Pt denies any prior knowledge. Review of her chart since Nov 30 indicated multiple admissions for similar sx. Admission in Nov revealed DVT/PE with R heart strain, apparently improved upon admission in January 2024, although still with slightly reduced EF. Pt states she has never seen a information security as outpt, she was seen during admission here only. States she "didn't get around to setting that up yet." She has not been consistent in her outpt care. She does not drive and relies on her daughter to drive her places. Has had chronic dizziness, sometimes associated with N/V, for many months. She has had near syncopal events and had some falls at home. Denies any lateralizing sx, amaurosis, aphasia, facial droop. MRI imaging suggested a subacute/acute infarct to her corpus callosum. CTA neck demonstrates significant carotid disease, 90% stenosis. Allergies Allergy/AdvReac Type Severity Reaction Status Date / Time red dye Allergy Severe Anaphylaxis Verified 03/07/24 12:38 Home Medications Medication Instructions Recorded Confirmed Type famotidine 20 mg tablet (Pepcid) 20 mg PO DAILY PRN Acid Reflux 09/18/22 03/07/24 History metformin 500 mg tablet 500 mg PO BID 09/18/22 03/07/24 History pravastatin 40 mg tablet 40 mg PO HS 09/18/22 03/07/24 History levothyroxine 200 mcg tablet See Rx Instructions .Route .COMPLEX 12/03/22 03/07/24 History cholecalciferol (vitamin D3) 50 50 mcg PO QAM 02/27/23 03/07/24 History mcg (2,000 unit) capsule (Vitamin D3) cyanocobalamin (vitamin B-12) 1,000 mcg PO QAM 02/27/23 03/07/24 History 1,000 mcg tablet (Vitamin B-12) levothyroxine 25 mcg tablet See Rx Instructions .Route .COMPLEX 12/07/23 03/07/24 History apixaban 5 mg tablet (Eliquis) 5 mg PO BID #60 tabs 12/09/23 03/07/24 Rx potassium chloride 20 mEq 20 meq PO DAILY takes when taking 12/20/23 03/07/24 Rx tablet,extended release torsemide #30 tabs ciprofloxacin HCl 500 mg tablet 500 mg PO BID #60 tabs 12/29/23 03/07/24 Rx metoprolol tartrate 25 mg tablet 12.5 mg (1/2 x 25 mg) PO BID #0 02/18/24 03/07/24 Rx tabs acetaminophen 325 mg tablet 650 mg PO Q4H PRN Pain 03/07/24 03/07/24 History metronidazole 500 mg tablet 500 mg PO Q8H 03/07/24 03/07/24 History midodrine 5 mg tablet 5 mg PO TID 03/07/24 03/07/24 History tramadol 50 mg tablet 50 mg PO Q6H PRN Pain 03/07/24 03/07/24 History Patient History Medical History Depression Pulmonary embolism, bilateral CHF (congestive heart failure) Abdominal fistula Mass of spine Morbid obesity with BMI of 50.0-59.9, adult Osteoarthritis Ileostomy in place Ulcerative colitis Hypothyroidism Diabetes mellitus, type 2 on metformin daily History of pulmonary embolism "at least 10yrs ago"--unknown cause, was on blood thinners, but then taken off--per pt no issues currently Heart murmur follows with PCP--no information security Surgical History History of benign breast biopsy History of total left knee replacement (TKR) History of total right knee replacement (TKR) History of gastric bypass History of hernia surgery History of cholecystectomy History of appendectomy History of colonoscopy and ileoscopy History of esophagogastroduodenoscopy (EGD) History of colon resection performed about 20yrs ago d/t ulcerative colitis---has ileostomy History of tooth extraction History of wisdom tooth extraction History of thyroidectomy, total d/t nodules History of bilateral cataract extraction Family History Sister Family history of reaction to anesthesia nausea/vomiting Social History Smoking Status: Never smoker Second Hand Exposure: No; Do You Dip or Chew Tobacco: No; Hx Alcohol Use: No Hx Substance Use: No Preferred Language: Polish Communication Ability: Effective Machine Ii Coremaker Required: No Beliefs That Will Affect Care: None Current Living Situation: Prison Current Living Situation Comment: [facility] Other Information That Helps Us Care for You: No Feels Safe at Home: Yes Safety Concerns: Feels Safe At This Time Assistive Devices: Glasses and Hospital Bed Review of Systems Review of Systems: All systems reviewed & are unremarkable except as noted in HPI & below Physical Exam Constitutional: WD/WN, vitals as above + morbidly obese and cooperative; not in distress ENMT: Ears: no hearing impairment Neck: trachea midline Respiratory: normal respiratory effort, lungs clear to auscultation Auscultation: + diminished lung sounds Cardiovascular: Rate/Rhythm: regular rate and regular rhythm Vessels: posterior tibial pulses present, dorsalis pedis pulses present and radial pulses present; + abnormal peripheral pulses Extremities: normal capillary refill and + edema Gastrointestinal (Abdomen): Inspection/Auscultation: abdomen normal to inspection, normal bowel sounds and + abdominal surgical scar (multiple, ileostomy present. draining sinus under ileostomy dressing. ) Percussion/Palpation: abdomen soft; abdomen nontender Musculoskeletal: no cyanosis or clubbing, extremities motor strength 5/5 Skin: no rashes, warm and dry Neurologic: moves all extremities and awake; no focal motor deficits and not confused Psychiatric: A+Ox3, euthymic affect Results & Data Vital Signs (Past 12 Hours) Vital Signs Temp Pulse Pulse Resp BP BP Pulse Ox 03/08/24 11:57 36.3 C L 61 18 108/48 L 93 03/08/24 08:28 36.9 C 61 17 119/77 90 03/08/24 07:20 71 03/08/24 03:49 36.6 C 62 16 103/63 96 O2 Del Method 03/08/24 11:57 Room Air 03/08/24 08:28 Room Air 03/08/24 07:20 03/08/24 03:49 Room Air
--- NOTE | 2024-03-08 14:27 | Hospitalist Progress Note ---
Date of Service March 08, 2024 Assessment & Plan (1) CVA (cerebral vascular accident): Plan: Presyncopal episode on the evening of 03/05, then dizziness/nausea/vomiting on 03/06 - presenting symptoms have resolved Hx of vertigo; patient reports this feels prior to similar episodes; not currently on medications Head CTA revealed no acute intracranial abnormalities Brain MRI w/wo revealed an acute v. subacute lacunar infarct in the corpus callosum Neck CTA revealed 80% stenosis within the proximal right ICA and 90% stenosis within the left ICA - Vascular surgery consulted, as this is a symptomatic stroke (on Eliquis) in the setting of severe stenosis - agree could benefit from surgical management, but not acutely - follow up outpatient - will need establish with outpatient cardiology/clearance - Neurology consulted - Continue Elqiuis. Add ASA 81mg - Continue pravastatin - LDL goal less than 70 - Follow up outpatient for concerns for peripheral neuropathy - Vitamin B1 and B12 level pending -A1c: 6.7, defer changes to CVA guideline directed therapy to PCP Continue aspirin 81 mg daily ( famotidine scheduled at this causes heartburn) Echocardiogram with bubble study pending PT/OT - recommend return to [facility] (2) Orthostasis: Plan: Continue midodrine After extensive chart review - no record of atrial fibrillation. SR with PVCs and PACs on tele. She was started on Metoprolol during her 11/2023 admission to follow guideline directed therapy for heart failure. She is on intermediate Eliquis for repeat DVT/PEs. Since November she has had multiple hospitalizations and switch back and forth from Coreg to Metoprolol, and had a period where this was d/c at [facility]. She has not seen cardiology in the outpatient setting. -Given her low BPs, will stop metoprolol at this time. - encourage outpatient cardiology follow up - check orthostatic vitals (3) Ileostomy in place: Plan: Ostomy care QS Continue ciprofloxacin and metronidazole (4) CHF (congestive heart failure): Plan: Last echo revealed LVEF at 60 to 65% Not currently taking torsemide; will hold potassium supplementation - Echo pending for CVA (5) Diabetes mellitus, type 2: Plan: Hgb a1c: 6.7 SSI; with target BSG range 110-140mg/dL, CF 30, carb ratio 10 BSG ACHS Patient is not on guideline DM therapy to also benefit CVA risk, however with overall well controlled diabetes at this time, will defer change in regiment to PCP. (6) Hypomagnesemia: Plan: Magnesium 1.4 on arrival Magnesium sulfate 1 g x 2 Improved to 1.9 (7) Vertigo: Plan: Meclizine 12.5 mg p.o. q6h as needed for vertigo - has not required Plan Disposition: continued inpatient stay VTE PPx: On Rachel Daughter updated by phone Admission and Anticipated Discharge Date Admission Date: March 07, 2024 Subjective Patient resting in bed, denies nausea or vomiting or any of the symptoms that brought her in. These have resolved. Reports dizziness when working with PT/OT but nothing more than her normal. Tele - SR with PVCs and PACs 60-80s Review of Systems Review of Systems: All systems reviewed & are unremarkable except as noted in Subjective Physical Exam Physical Exam: General: NAD, VS as above HEENT: no cartoid bruits Resp: normal respiratory effort, lungs clear to auscultation CV: irregular rhythm, no murmur, Abd: ostomy in place RLQ, non tender, no hepatosplenomegaly : Purewhick draining dark/concentrated urine Extremities: Moves all extremities, trace LE edema Neuro: A&O x3, Results & Data Results & Data Vital Signs (Past 12 Hours) Vital Signs Temp Pulse Pulse Resp BP BP Pulse Ox 03/08/24 11:57 36.3 C L 61 18 108/48 L 93 03/08/24 08:28 36.9 C 61 17 119/77 90 03/08/24 07:20 71 03/08/24 03:49 36.6 C 62 16 103/63 96 O2 Del Method 03/08/24 11:57 Room Air 03/08/24 08:28 Room Air 03/08/24 07:20 03/08/24 03:49 Room Air Laboratory Results CBC, chemistry, hgb A1c reviewed PG Care Time/CCT Total # of Minutes Spent Total Time Spent with Patient: Total time spent is greater than 50% in coordination of care (as documented) at patient's floor/unit and/or counseling patient: Coding Level of Care Code 52957 SUB INP/OBS CARE 3/50MIN Diagnoses CVA (cerebral vascular accident) I63.9 Orthostasis I95.[address] Z93.2 CHF (congestive heart failure) I50.9 Heart failure chronicity: acute Heart failure type: unspecified Diabetes mellitus, type 2 E11.9 Hypomagnesemia E83.42 Vertigo R42 (4) CHF (congestive heart failure) Heart failure chronicity: acute Heart failure type: unspecified Qualified Code(s): I50.9 - Heart failure, unspecified
--- NOTE | 2024-03-08 20:00 | XCELERA ---
[id number]
--- NOTE | 2024-03-09 05:57 | Electrocardiogram Report ---
Test Reason : Blood Pressure : / mmHG Vent. Rate : 091 BPM Atrial Rate : 000 BPM P-R Int : 184 ms QRS Dur : 082 ms QT Int : 364 ms P-R-T Axes : 000 -22 061 degrees QTc Int : 447 ms Sinus rhythm with frequent Premature atrial complexes Nonspecific ST abnormality Abnormal ECG When compared with ECG of 15-FEB-2024 12:38, No significant change Confirmed by Frank Siddiqui ([id number]) on 03/09/2024 5:56:53 AM Referred By: Confirmed By:Frank Siddiqui
[2024-03-09 06:14] LABS: BUN Creatinine Ratio 15.5 (10-20); Calcium 8.1 mg/dl (8.6-10.3); Creatinine Clr Calc Pharmacy 87.1 ml/min; Est GFR (African American) 78.2 ml/min; Est GFR (Non-African American) 67.5 ml/min
[2024-03-09 06:27] LABS: Basophils # (auto) 0.05 K/uL (0.00-0.20); Basophils % (auto) 0.7 %; Eosinophils % (auto) 4.3 %; Hematocrit (blood only) 33.3 % (37.0-47.0); Hemoglobin 10.2 g/dl (12.0-16.0); Immature Granulocytes # (auto) 0.03 K/uL (0.01-0.20); Immature Granulocytes % (auto) 0.4 %; Lymphocytes # (auto) 1.25 K/uL (1.20-3.40); Lymphocytes % (auto) 17.9 %; Mean Corpuscular Hemoglobin 28.9 pg (25.0-34.0); Mean Corpuscular Hgb Conc 30.6 g/dL (32.0-36.0); Mean Corpuscular Volume 94.3 fL (80.0-100.0); Mean Platelet Volume 10.6 fL (9.4-12.4); Monocytes # (auto) 0.68 K/uL (0.11-0.59); Monocytes % (auto) 9.7 %; Neutrophils # (auto) 4.68 K/uL (1.40-6.50); Platelet Count 277 K/uL (130-400); RDW Coefficient of Variation 15.9 % (11.5-14.5); RDW Standard Deviation 55.1 fL (36.4-46.3); Red Blood Count 3.53 M/uL (4.20-5.40); White Blood Count 6.99 K/ul (4.8-10.8)
[2024-03-09] MEDS: THIAMINE HCL 100 MG TAB PO SCH (15:00)
[2024-03-09] MEDS: ONDANSETRON INJ 2 MG/ML 2 ML VIAL IV PRN (17:19)
[2024-03-09] MEDS: MIDODRINE HCL 2.5 MG TAB PO SCH (17:21)
--- NOTE | 2024-03-09 17:31 | Hospitalist Progress Note ---
Date of Service March 09, 2024 Assessment & Plan (1) CVA (cerebral vascular accident): Plan: Presyncopal episode on the evening of 03/05, then dizziness/nausea/vomiting on 03/06 - presenting symptoms have resolved Hx of vertigo; patient reports this feels prior to similar episodes; not currently on medications Head CTA revealed no acute intracranial abnormalities Brain MRI w/wo revealed an acute v. subacute lacunar infarct in the corpus callosum Neck CTA revealed 80% stenosis within the proximal right ICA and 90% stenosis within the left ICA - Vascular surgery consulted, as this is a symptomatic stroke (on Eliquis) in the setting of severe stenosis - agree could benefit from surgical management, but not acutely - follow up outpatient - will need establish with outpatient cardiology/clearance - Neurology consulted - Continue Elqiuis. Add ASA 81mg - Continue pravastatin - LDL goal less than 70 - Follow up outpatient for concerns for peripheral neuropathy - Vitamin B1 level pending - empiric treatment started while inpatient - vitamin b12 level: 564, no supplementation needed -A1c: 6.7, defer changes to CVA guideline directed therapy to PCP Continue aspirin 81 mg daily ( famotidine scheduled at this causes heartburn) Echocardiogram: EF 55-60%, no regional wall motion abnormalities, mild pulmonary HTN. no intaatrial shunt PT/OT - recommend return to [facility] (2) Orthostasis: Plan: Midodrine increased to 7.5mg TID 03/09 After extensive chart review - no record of atrial fibrillation. SR with PVCs and PACs on tele. She was started on Metoprolol during her 11/2023 admission to follow guideline directed therapy for heart failure. She is on skilled nursing Eliquis for repeat DVT/PEs. Since November she has had multiple hospitalizations and switch back and forth from Coreg to Metoprolol, and had a period where this was d/c at [facility]. She has not seen cardiology in the outpatient setting. -Given her low BPs, will stop metoprolol at this time. - encourage outpatient cardiology follow up -orthostatic vitals unable to be completed today due to patient limited ability to transfer - Compression stocking trialed, but did not properly fit patient (3) Ileostomy in place: Plan: Ostomy care QS Continue ciprofloxacin and metronidazole (4) CHF (congestive heart failure): Plan: Last echo revealed LVEF at 60 to 65% Not currently taking torsemide; will hold potassium supplementation - Echo as above (5) Diabetes mellitus, type 2: Plan: Hgb a1c: 6.7 SSI; with target BSG range 110-140mg/dL, CF 30, carb ratio 10 BSG ACHS Patient is not on guideline DM therapy to also benefit CVA risk, however with overall well controlled diabetes at this time, will defer change in regiment to PCP. (6) Hypomagnesemia: Plan: Magnesium 1.4 on arrival Magnesium sulfate 1 g x 2 Improved to 1.9 (7) Vertigo: Plan: Meclizine 12.5 mg p.o. q6h as needed for vertigo - has not required Plan Disposition: continued inpatient stay VTE PPx: On Eliquis Daughter updated by phone - concerned that her mother is depressed and if she is not trying to get better. Admission and Anticipated Discharge Date Admission Date: March 09, 2024 Subjective Patient resting in bed at time of my exam, she reports pain from when she had to be lifted back into bed. Patient was able to get out of bed, get cleaned up and sat in the chair. and then could not get up out of the chair, it took 6-7 people to get her back into the bed. Patient intially stated that she felt good when she was getting to the chair, but then when asked stated she was dizzy the whole time. Describes her dizziness as sometimes the room is spinning, but not always. She states its worse with standing because she cant feel her pain. denies pain in her feet Patient stating she has tried leg pumps, compression stocking before. Review of Systems Review of Systems: All systems reviewed & are unremarkable except as noted in Subjective Physical Exam Physical Exam: General: NAD, VS as above Resp: normal respiratory effort, lungs clear to auscultation CV: irregular rhythm, no murmur, Abd: ostomy in place RLQ, non tender, no hepatosplenomegaly : Purewhick draining dark/concentrated urine Extremities: Moves all extremities, trace LE edema Neuro: A&O x3, Results & Data Results & Data Vital Signs (Past 12 Hours) Vital Signs Temp Pulse Pulse Resp BP Pulse Ox O2 Del Method 03/09/24 16:26 88 03/09/24 15:28 36.4 C L 87 17 132/73 90 Room Air 03/09/24 11:42 36.7 C 86 18 113/60 97 Room Air 03/09/24 08:00 75 03/09/24 07:50 36.7 C 78 18 117/68 97 Room Air Laboratory Results CBC, chemistry and B12 level reviewed PG Care Time/CCT Total # of Minutes Spent Total Time Spent with Patient: Total time spent is greater than 50% in coordination of care (as documented) at patient's floor/unit and/or counseling patient: Coding Level of Care Code 49488 SUB INP/OBS CARE 3/50MIN Diagnoses CVA (cerebral vascular accident) I63.9 Orthostasis I95.[address] Z93.2 CHF (congestive heart failure) I50.9 Heart failure chronicity: acute Heart failure type: unspecified Diabetes mellitus, type 2 E11.9 Hypomagnesemia E83.42 Vertigo R42 (4) CHF (congestive heart failure) Heart failure chronicity: acute Heart failure type: unspecified Qualified Code(s): I50.9 - Heart failure, unspecified
[2024-03-10 07:28] LABS: BUN Creatinine Ratio 15.1 (10-20); Calcium 8.2 mg/dl (8.6-10.3); Creatinine Clr Calc Pharmacy 99.6 ml/min; Est GFR (African American) 92.7 ml/min; Potassium 3.9 mmol/L (3.5-5.1)
--- NOTE | 2024-03-10 14:48 | Hospitalist Progress Note ---
Date of Service March 10, 2024 Assessment & Plan (1) CVA (cerebral vascular accident): Plan: Presyncopal episode on the evening of 03/05, then dizziness/nausea/vomiting on 03/06 - presenting symptoms have resolved Hx of vertigo; patient reports this feels prior to similar episodes; not currently on medications Head CTA revealed no acute intracranial abnormalities Brain MRI w/wo revealed an acute v. subacute lacunar infarct in the corpus callosum Neck CTA revealed 80% stenosis within the proximal right ICA and 90% stenosis within the left ICA - Vascular surgery consulted, as this is a symptomatic stroke (on Eliquis) in the setting of severe stenosis - agree could benefit from surgical management, but not acutely - follow up outpatient - will need establish with outpatient cardiology/clearance - Neurology consulted - Continue Elqiuis. Add ASA 81mg - Continue pravastatin - LDL goal less than 70 - Follow up outpatient for concerns for peripheral neuropathy - Vitamin B1 level pending - empiric treatment started while inpatient - vitamin b12 level: 564, no supplementation needed -A1c: 6.7, defer changes to CVA guideline directed therapy to PCP Continue aspirin 81 mg daily ( famotidine scheduled at this causes heartburn) Echocardiogram: EF 55-60%, no regional wall motion abnormalities, mild pulmonary HTN. no intaatrial shunt PT/OT - recommend return to [facility] (2) Orthostasis: Plan: Midodrine increased to 7.5mg TID 03/09 After extensive chart review - no record of atrial fibrillation. SR with PVCs and PACs on tele. She was started on Metoprolol during her 11/2023 admission to follow guideline directed therapy for heart failure. She is on [facility] Eliquis for repeat DVT/PEs. Since November she has had multiple hospitalizations and switch back and forth from Coreg to Metoprolol, and had a period where this was d/c at [facility]. She has not seen cardiology in the outpatient setting. -Given her low BPs, will stop metoprolol at this time. - encourage outpatient cardiology follow up - Compression stocking trialed, but did not properly fit patient - Orthostatic VS normal today, pt was still symptomatic - AM cortisol 14 - not concerned for adrenal insufficency (3) Ileostomy in place: Plan: Ostomy care QS Continue ciprofloxacin and metronidazole for fistulas - pt has been on this for years (4) CHF (congestive heart failure): Plan: Chronic HFpEF Last echo revealed LVEF at 60 to 65% Not currently taking torsemide; will hold potassium supplementation - Echo as above (5) Diabetes mellitus, type 2: Plan: Hgb a1c: 6.7 SSI; with target BSG range 110-140mg/dL, CF 30, carb ratio 10 BSG ACHS Patient is not on guideline DM therapy to also benefit CVA risk, however with overall well controlled diabetes at this time, will defer change in regiment to PCP. (6) Hypomagnesemia: Plan: Magnesium 1.4 on arrival Magnesium sulfate 1 g x 2 Improved to 1.9 (7) Vertigo: Plan: Meclizine 12.5 mg p.o. q6h as needed for vertigo - has not required (8) Morbid obesity: Plan: Morbid obesity with BMI 51.1 Plan Disposition: continued inpatient stay VTE PPx: On Eliquis Admission and Anticipated Discharge Date Admission Date: March 09, 2024 Supervising Physician Co-Signing Physician Notes Attending Attestation - Chart reviewed in detail, care plan d/w KINDRA Schuler. I agree w/ the sams components of her documentation. SEVERE b/l ICA stenosis - appreciate vascular consult - will need intervention in the future. Appreciate neuro consultation. Corpus callosum CVA - added asa to her Eliquis for secondary prevention. Papi Zarate MD Subjective Patient seen resting in bed just before lunch. States she feels sicks to her stomach today, but has not vomited. Feels like her ostomy bag is too full, she normally empties this herself at home - I encouraged her to participate in her care and ring for assistance or empty the bag herself. During her orthostatic VS this morning - said she felt a little dizzy, but better than it has been, eventualy goes away. But continually says she feels like she is going "to go out" when she stands. Does not feel like her legs are going to give out, but overall lack of sensation in those for years. does not feel like the room is spinning, denies double vision or spots in her vision Patient relays how it is hard to want to do something when she is so dizzy all the time. Asked if she was feeling down or less interested in things, but overall she tells me her mental health is doing good. Tele - SR with PVCs and PACs 70s Review of Systems Review of Systems: All systems reviewed & are unremarkable except as noted in Subjective Physical Exam Physical Exam: General: NAD, VS as above Resp: normal respiratory effort, lungs clear to auscultation CV:RRR, no murmur, Abd: ostomy in place RLQ, non tender, no hepatosplenomegaly : Purewhick draining dark/concentrated urine Extremities: Moves all extremities, trace LE edema Neuro: A&O x3, Results & Data Results & Data Vital Signs (Past 12 Hours) Vital Signs Temp Pulse Pulse Resp BP BP Pulse Ox 03/10/24 11:58 36.3 C L 70 16 127/77 96 03/10/24 08:00 79 03/10/24 08:00 03/10/24 08:00 36.7 C 80 18 116/77 96 03/10/24 04:15 36.3 C L 77 20 108/71 96 O2 Del Method 03/10/24 11:58 Room Air 03/10/24 08:00 03/10/24 08:00 Room Air 03/10/24 08:00 Room Air 03/10/24 04:15 Room Air Laboratory Results BMP reviewed PG Care Time/CCT Total # of Minutes Spent Total Time Spent with Patient: Total time spent is greater than 50% in coordination of care (as documented) at patient's floor/unit and/or counseling patient: Coding Level of Care Code 27077 SUB INP/OBS CARE 2/35MIN Diagnoses CVA (cerebral vascular accident) I63.9 Orthostasis I95.[address] Z93.2 CHF (congestive heart failure) I50.9 Heart failure chronicity: acute Heart failure type: unspecified Diabetes mellitus, type 2 E11.9 Hypomagnesemia E83.42 Vertigo R42 Morbid obesity E66.01 (4) CHF (congestive heart failure) Heart failure chronicity: acute Heart failure type: unspecified Qualified Code(s): I50.9 - Heart failure, unspecified
[2024-03-10] MEDS: MECLIZINE 12.5 MG TAB PO PRN (15:34)
--- NOTE | 2024-03-10 22:40 | Electrocardiogram Report ---
Test Reason : Blood Pressure : / mmHG Vent. Rate : 094 BPM Atrial Rate : 104 BPM P-R Int : 000 ms QRS Dur : 090 ms QT Int : 376 ms P-R-T Axes : 000 -17 052 degrees QTc Int : 470 ms Sinus rhythm with frequent Premature atrial complexes vs wandering atrial pacemaker Abnormal ECG When compared with ECG of 07-MAR-2024 08:32, No significant change was found Confirmed by Frank Siddiqui ([id number]) on 03/10/2024 10:40:19 PM Referred By: REFERRED SELF Confirmed By:Frank Siddiqui
[2024-03-11 06:59] LABS: Calcium 8.4 mg/dl (8.6-10.3); Creatinine Clr Calc Pharmacy 98.1 ml/min; Est GFR (African American) 92.7 ml/min; Potassium 3.9 mmol/L (3.5-5.1)
--- NOTE | 2024-03-11 16:42 | Hospitalist Progress Note ---
Date of Service March 11, 2024 Assessment & Plan (1) CVA (cerebral vascular accident): Plan: Presyncopal episode on the evening of 03/05, then dizziness/nausea/vomiting on 03/06 - presenting symptoms have resolved Hx of vertigo; patient reports this feels prior to similar episodes; not currently on medications Head CTA revealed no acute intracranial abnormalities Brain MRI w/wo revealed an acute v. subacute lacunar infarct in the corpus callosum Neck CTA revealed 80% stenosis within the proximal right ICA and 90% stenosis within the left ICA - Vascular surgery consulted, as this is a symptomatic stroke (on Eliquis) in the setting of severe stenosis - agree could benefit from surgical management, but not acutely - follow up outpatient - will need establish with outpatient cardiology/clearance - Neurology consulted - Continue Elqiuis. Add ASA 81mg - Continue pravastatin - LDL goal less than 70 - Follow up outpatient for concerns for peripheral neuropathy - Vitamin B1 level pending - empiric treatment started while inpatient - vitamin b12 level: 564, no supplementation needed - discussed case with Dr. Chowdary 03/11, continue midodrine and trial compression stockings (pt unable to comfortable wear the sizes we have) -A1c: 6.7, defer changes to CVA guideline directed therapy to PCP Continue aspirin 81 mg daily ( famotidine scheduled at this causes heartburn) Echocardiogram: EF 55-60%, no regional wall motion abnormalities, mild pulmonary HTN. no intaatrial shunt PT/OT - may need rehab, has refused multiple therapy sessions due to not feeling well (2) Orthostasis: Plan: Midodrine increased to 7.5mg TID 03/09 After extensive chart review - no record of atrial fibrillation. SR with PVCs and PACs on tele. She was started on Metoprolol during her 11/2023 admission to follow guideline directed therapy for heart failure. She is on longterm Eliquis for repeat DVT/PEs. Since November she has had multiple hospitalizations and switch back and forth from Coreg to Metoprolol, and had a period where this was d/c at [facility]. She has not seen cardiology in the outpatient setting. -Given her low BPs, will stop metoprolol at this time. - encourage outpatient cardiology follow up - Compression stocking trialed, but did not properly fit patient - AM cortisol 14 - not concerned for adrenal insufficency Patient also reports nausea when standing, no abdominal pain - encourage antiemetic use - AM ammonia level (3) Ileostomy in place: Plan: Ostomy care QS Continue ciprofloxacin and metronidazole for fistulas - pt has been on this for years (4) CHF (congestive heart failure): Plan: Chronic HFpEF Last echo revealed LVEF at 60 to 65% Not currently taking torsemide; will hold potassium supplementation - Echo as above (5) Diabetes mellitus, type 2: Plan: Hgb a1c: 6.7 SSI; with target BSG range 110-140mg/dL, CF 30, carb ratio 10 BSG ACHS Patient is not on guideline DM therapy to also benefit CVA risk, however with overall well controlled diabetes at this time, will defer change in regiment to PCP. (6) Hypomagnesemia: Plan: Magnesium 1.4 on arrival Magnesium sulfate 1 g x 2 Improved to 1.9 (7) Vertigo: Plan: Meclizine 12.5 mg p.o. q6h as needed for vertigo (8) Morbid obesity: Plan: Morbid obesity with BMI 51.1 Plan Disposition: continued inpatient stay. Dispo largely dependent on how she does at therapy, [facility] can not take her home over the weekend. VTE PPx: On Eliquis Daughter updated at bedside and again over the phone. Case discussed with Dr. Chowdary. Admission and Anticipated Discharge Date Admission Date: March 09, 2024 Supervising Physician Co-Signing Physician Notes Attending Attestation - Chart reviewed in detail, care plan d/w KINDRA Schuler. I agree w/ the sams components of her documentation. Papi orlando saw the patient this morning, prior to lunch. She stated that when she stood yesterday she felt less dizzy and her nauseousness from yesterday had improved. I again encouraged her to participate in her care, explained the plan for meclizine and repeat orthostatic vitals this afternoon. I revisited bedside this afternoon, daughter was present. At first patient denied standing at all, and then stated that it went horribly. After several questioning she said because she got nauseous while standing but eventually the nausea just went away spontaneously. She told me that she has rang multiple times to go to the bathroom but no one responds to her call case. I encouraged her to get up while i was present at the bedside, and she started the process and then said that she could not move her leg, when she was currently moving said leg. Eventually said it was easier to get out on the other side of the bed, so I rearranged the room to make that possible and then she again attempted to get out of bed, multiple times saying she couldn't move when she actively was. Eventually she gave up stating she was nauseous, and had some dry heaving and ended up spitting up some phlegm. I reached out to Neurology to see if they had any new recommendations given current symptoms - and we are already doing all of their recommendations, would not increase salt intake with hx of CHF. Tele - SR with PVCs and PACs 80s Review of Systems Review of Systems: All systems reviewed & are unremarkable except as noted in Subjective Physical Exam Physical Exam: General: NAD, VS as above Resp: normal respiratory effort, lungs clear to auscultation CV:RRR, no murmur, Abd: ostomy in place RLQ, non tender, no hepatosplenomegaly Extremities: Moves all extremities, no edema Neuro: A&O x3, Results & Data Results & Data Vital Signs (Past 12 Hours) Vital Signs Temp Pulse Resp BP Pulse Ox O2 Del Method 03/11/24 15:39 36.7 C 79 16 175/91 H 92 Room Air 03/11/24 11:32 36.5 C 76 16 126/75 93 Room Air 03/11/24 07:48 36.7 C 112 H 18 152/78 H 94 Room Air Laboratory Results BMP reviewed PG Care Time/CCT Total # of Minutes Spent Total Time Spent with Patient: Total time spent is greater than 50% in coordination of care (as documented) at patient's floor/unit and/or counseling patient: Coding Level of Care Code 29747 SUB INP/OBS CARE 3/50MIN Diagnoses CVA (cerebral vascular accident) I63.9 Orthostasis I95.[address] Z93.2 CHF (congestive heart failure) I50.9 Heart failure chronicity: acute Heart failure type: unspecified Diabetes mellitus, type 2 E11.9 Hypomagnesemia E83.42 Vertigo R42 Morbid obesity E66.01 (4) CHF (congestive heart failure) Heart failure chronicity: acute Heart failure type: unspecified Qualified Code(s): I50.9 - Heart failure, unspecified
[2024-03-12 06:53] LABS: Albumin Globulin Ratio 1.1 (0.9-2); Albumin Level 3.1 gm/dl (3.4-5.0); BUN Creatinine Ratio 10.7 (10-20); Bilirubin,Total 0.4 mg/dl (0.2-1.0); Calcium 8.6 mg/dl (8.6-10.3); Creatinine Clr Calc Pharmacy 96.5 ml/min; Est GFR (African American) 89.7 ml/min; Est GFR (Non-African American) 77.4 ml/min; Globulin 2.7 gm/dl (2.5-4.0); Magnesium 1.6 mg/dl (1.7-2.4); Potassium 3.8 mmol/L (3.5-5.1); Total Protein 5.8 gm/dl (6.0-8.3)
--- NOTE | 2024-03-12 07:28 | Hospitalist Progress Note ---
Date of Service March 12, 2024 Assessment & Plan (1) CVA (cerebral vascular accident): Plan: Presyncopal episode on the evening of 03/05, then dizziness/nausea/vomiting on 03/06 Hx of vertigo; patient reports this feels prior to similar episodes; not currently on medications at home Head CTA revealed no acute intracranial abnormalities Brain MRI w/wo revealed an acute v. subacute lacunar infarct in the corpus callosum Neck CTA revealed 80% stenosis within the proximal right ICA and 90% stenosis within the left ICA Vascular surgery consulted, as this is a symptomatic stroke (on Eliquis) in the setting of severe stenosis ASA 324 mg given Continue aspirin 81 mg daily Neurochecks q4h Patient passed dysphagia screen in the ED, okay to eat; no slurred speech Neurology consulted and agree with aspirin and anticoagulation. Will follow-up in office in 2 to 3 weeks Meclizine 12.5 mg p.o. q6h as needed for vertigo seem to help. Will schedule every 8 hours. Continue with PT/OT. Note states home with home health. However, 6 clicks mobility indicates the patient needed a maximum of moderate assist for all activity and was unable to perform 3-5 steps with a railing with assistance. Mobility function loss reported at 66.76%. Note indicates poor motivation, poor tolerance, tires easily. Short-term physical rehab inpatient versus transfer back to [facility] to be determined based on PT/OT performance (2) Vomiting: Plan: Resolved Zofran as needed; QTc okay (3) Orthostasis: Plan: Continue midodrine at 7.5 mg p.o. 3 times daily with meals (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: Plan: Ostomy care QS Continue ciprofloxacin and metronidazole (5) Diabetes mellitus, type 2: Plan: Last A1c at 6.5% on 12/08/2023 Glucose 155 on admission Hold metformin SSI; with target BSG range 110-140mg/dL, CF 30, carb ratio 10 T2DM diet BSG ACHS Adjust regimen as needed (6) Hypomagnesemia: Plan: Magnesium 1.4 on arrival Magnesium sulfate 1 g x 2 and repeat mag level was 1.9 Mag kevel this am was 1.6. Will give an additional 2gms magnesium sulfate IV Follow serial labs (7) Elevated troponin: (8) Vertigo: Plan: Meclizine 12.5 mg p.o. q6h as needed for vertigo seemed to help. Will change to scheduled q8h. Continue with PT/OT Plan Disposition: Continue on tele until magnesium levels are stable. Inpatient rehab vs return to [facility] based on PT/OT performance DNR/DNI AHA, T2DM diet VTE PPx: On Eliquis [facility] not able to accept her back over the weekend. Patient has been encouraged to participate more with pt/ot. She may benefit from short term rehab when medically stable. Admission and Anticipated Discharge Date Admission Date: March 09, 2024 Supervising Physician Co-Signing Physician Notes Attending Attestation - Chart reviewed in detail, care plan d/w PA Aramis Leonardo. I agree w/ the sams components of her documentation. Papi Zarate MD Subjective Attending: Dr. Zarate 78-year-old female admitted 03/07/2024 with dizziness and vertigo as well as nausea vomiting. Acute CVA noted on brain MRI. Neurology consulted and agree with aspirin 81 mg daily as well as continuation of pravastatin and Eliquis. Follow-up with neurology in 2 to 3 weeks as an outpatient. Vitamin B12 level is normal at 564. Recommends midodrine for orthostasis. Midodrine dose increased to 7.5 mg 3 times daily on 03/09/2024. Vertigo seems to be improved with meclizine. Patient still with complaints of mild headache in the frontal region. She reports weakness on the right side but there is no appreciable weakness on physical examination. No acute neurological deficits appreciated. Continue to encourage PT/OT. Patient has refused multiple therapy sessions due to not feeling well. Patient reports that she has not seen anyone from physical therapy but would be willing to work with them. Patient denies any further nausea or vomiting. No diarrhea. No chills. No fever. No change in vision. No dysphagia. Review of Systems 2 Review of Systems: A total of 10 systems was reviewed and is negative other than as listed in the HPI Physical Exam 2 Physical Exam: GENERAL : No acute distress EYES: No icterus, gaze conjugate NOSE: No evidence of epistaxis MOUTH: No lesions or candidiasis. Mucosa moist NECK: Supple LUNGS: CTA B/L, no wheezes, rales or rhonchi HEART: Regular, rate controlled ABDOMEN: Soft, NT, ND, BS Present EXTREMITIES: No LE edema, pedal pulses intact NEURO: A&OX3. PERRLA. Equal and appropriate strength to upper and lower extremities bilaterally. Cerebellar function in place with finger to nose and alternation movements. Unable to perform heel to blanton secondary to body habitus. No pronator drift. DTRs 2/4 BL to patellar, biceps, and brachioradialis tendons. Moderate assist to sit upright in bed for examination. No slurred speech. No facial droop. Results & Data Results & Data Vital Signs (Past 12 Hours) Vital Signs Temp Pulse Resp BP Pulse Ox O2 Del Method 03/12/24 04:04 36.5 C 75 16 133/67 93 Nasal Cannula 03/11/24 23:20 36.7 C 80 18 123/68 92 Room Air 03/11/24 19:55 36.5 C 85 18 139/70 92 Room Air Laboratory Results 03/09/24 05:30 03/12/24 06:11 PG Care Time/CCT Total # of Minutes Spent Total Time Spent with Patient: Total time spent is greater than 50% in coordination of care (as documented) at patient's floor/unit and/or counseling patient: Coding Level of Care Code 64195 SUB INP/OBS CARE 2/35MIN Diagnoses CVA (cerebral vascular accident) I63.9 Vomiting R11.10 Nausea presence: unspecified Vomiting type: unspecified Orthostasis I95.[address] Z93.2 Diabetes mellitus, type 2 E11.9 Hypomagnesemia E83.42 Elevated troponin R79.89 Vertigo R42 (2) Vomiting Nausea presence: unspecified Vomiting type: unspecified Qualified Code(s): R 11.10 - Vomiting, unspecified
[2024-03-12] MEDS: MAGNESIUM SULFATE / D5W 1 GM/100 ML BAG IV SCH (16:07)
[2024-03-12] MEDS: MECLIZINE 12.5 MG TAB PO SCH (18:05)
[2024-03-13 08:47] LABS: Albumin Globulin Ratio 1.1 (0.9-2); Albumin Level 3.2 gm/dl (3.4-5.0); BUN Creatinine Ratio 9.5 (10-20); Bilirubin,Total 0.4 mg/dl (0.2-1.0); Calcium 8.8 mg/dl (8.6-10.3); Creatinine Clr Calc Pharmacy 97.3 ml/min; Est GFR (African American) 91.2 ml/min; Est GFR (Non-African American) 78.7 ml/min; Globulin 2.9 gm/dl (2.5-4.0); Hematocrit (blood only) 36.3 % (37.0-47.0); Hemoglobin 11.7 g/dl (12.0-16.0); Magnesium 1.8 mg/dl (1.7-2.4); Mean Corpuscular Hemoglobin 29.3 pg (25.0-34.0); Mean Corpuscular Hgb Conc 32.2 g/dL (32.0-36.0); Mean Platelet Volume 10.7 fL (9.4-12.4); Phosphorus 3.5 mg/dl (2.5-4.9); Platelet Count 288 K/uL (130-400); Potassium 3.8 mmol/L (3.5-5.1); RDW Coefficient of Variation 15.6 % (11.5-14.5); RDW Standard Deviation 51.8 fL (36.4-46.3); Red Blood Count 3.99 M/uL (4.20-5.40); Total Protein 6.1 gm/dl (6.0-8.3); White Blood Count 6.64 K/ul (4.8-10.8)
--- NOTE | 2024-03-13 10:01 | Hospitalist Progress Note ---
Date of Service March 13, 2024 Assessment & Plan (1) CVA (cerebral vascular accident): Plan: Presyncopal episode on the evening of 03/05, then dizziness/nausea/vomiting on 03/06 - presenting symptoms have resolved Hx of vertigo; patient reports this feels prior to similar episodes; not currently on outpatient medications Head CTA revealed no acute intracranial abnormalities Brain MRI w/wo revealed an acute v. subacute lacunar infarct in the corpus callosum Neck CTA revealed 80% stenosis within the proximal right ICA and 90% stenosis within the left ICA - Vascular surgery consulted, as this is a symptomatic stroke (on Eliquis) in the setting of severe stenosis - agree could benefit from surgical management, but not acutely - follow up outpatient - will need establish with outpatient cardiology/clearance - Neurology consulted - Continue Elqiuis. Add ASA 81mg - Continue pravastatin - LDL goal less than 70 - Follow up outpatient for concerns for peripheral neuropathy - Vitamin B1 level <6 - empiric PO treatment started while awaiting results, started on IV therapy 03/13 - vitamin b12 level: 564, no supplementation needed - discussed case with Dr. Chowdary 03/11, continue midodrine and trial compression stockings (pt unable to comfortable wear the sizes we have) -A1c: 6.7, defer changes to CVA guideline directed therapy to PCP Continue aspirin 81 mg daily (famotidine scheduled at this causes pt heartburn) Echocardiogram: EF 55-60%, no regional wall motion abnormalities, mild pulmonary HTN. no intaatrial shunt PT/OT - may need rehab, has refused multiple therapy sessions due to not feeling well (2) Orthostasis: Plan: Midodrine increased to 7.5mg TID 03/09 After extensive chart review - no record of atrial fibrillation. SR with PVCs and PACs on tele. She was started on Metoprolol during her 11/2023 admission to follow guideline directed therapy for heart failure. She is on terminal clerk Eliquis for repeat DVT/PEs. Since November she has had multiple hospitalizations and switch back and forth from Coreg to Metoprolol, and had a period where this was d/c at [facility]. She has not seen cardiology in the outpatient setting. -Given her low BPs, will stop metoprolol at this time. -encourage outpatient cardiology follow up - Compression stocking trialed, but did not properly fit patient - AM cortisol 14 - not concerned for adrenal insufficiency Patient also reports nausea when standing - this has improved with scheduled meclizine (3) Ileostomy in place: Plan: Ostomy care QS Continue ciprofloxacin and metronidazole for fistulas - pt has been on this for years (4) CHF (congestive heart failure): Plan: Chronic HFpEF Last echo revealed LVEF at 60 to 65% Not currently taking torsemide; will hold potassium supplementation - Echo as above (5) Diabetes mellitus, type 2: Plan: Hgb a1c: 6.7 SSI; with target BSG range 110-140mg/dL, CF 30, carb ratio 10 BSG ACHS Patient is not on guideline DM therapy to also benefit CVA risk, however with overall well controlled diabetes at this time, will defer change in regiment to PCP. (6) Hypomagnesemia: Plan: Magnesium 1.4 on arrival Magnesium sulfate 1 g x 2 03/13 1.8, recevied replacement the day prior AM mag (7) Vertigo: Plan: Meclizine 12.5 mg p.o. q8h scheduled (8) Morbid obesity: Plan: Morbid obesity with BMI 51.1 Plan Disposition: continued inpatient stay. Dispo largely dependent on how she does at therapy, [facility] can not take her home over the weekend. VTE PPx: On Rachel family updated by phone 03/13 Admission and Anticipated Discharge Date Admission Date: March 09, 2024 Supervising Physician Co-Signing Physician Notes Attending Attestation - Chart reviewed in detail, care plan d/w KINDRA Schuler. I agree w/ the sams components of her documentation. Papi Zarate MD Subjective Patient resting in bed. States she is doing about the same. however denies dizziness or nausea today. Again encouraged patient to continue to move her legs and participate in therapy. 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 Tele - SR with PACs, PVCs Review of Systems Review of Systems: All systems reviewed & are unremarkable except as noted in Subjective Physical Exam Physical Exam: General: NAD, VS as above Resp: normal respiratory effort, lungs clear to auscultation CV:RRR, no murmur, Abd: ostomy in place RLQ, non tender, no hepatosplenomegaly Extremities: Moves all extremities, no edema. Reports decreased sensation to right leg. Neuro: A&O x3, Results & Data Results & Data Vital Signs (Past 12 Hours) Vital Signs Temp Pulse Pulse Resp BP BP Pulse Ox 03/13/24 08:00 36.4 C L 81 18 153/80 H 96 03/13/24 07:19 77 03/13/24 05:48 69 03/13/24 03:54 36.5 C 70 16 127/71 96 03/12/24 23:19 36.5 C 90 16 111/75 95 O2 Del Method 03/13/24 08:00 Room Air 03/13/24 07:19 03/13/24 05:48 03/13/24 03:54 Room Air 03/12/24 23:19 Room Air Laboratory Results CBC, chemistry, mag reviewed PG Care Time/CCT Total # of Minutes Spent Total Time Spent with Patient: Total time spent is greater than 50% in coordination of care (as documented) at patient's floor/unit and/or counseling patient: Coding Level of Care Code 85543 SUB INP/OBS CARE 3/50MIN Diagnoses CVA (cerebral vascular accident) I63.9 Orthostasis I95.[address] Z93.2 CHF (congestive heart failure) I50.9 Heart failure chronicity: acute Heart failure type: unspecified Diabetes mellitus, type 2 E11.9 Hypomagnesemia E83.42 Vertigo R42 Morbid obesity E66.01 (4) CHF (congestive heart failure) Heart failure chronicity: acute Heart failure type: unspecified Qualified Code(s): I50.9 - Heart failure, unspecified
[2024-03-13] MEDS: THIAMINE HCL 200 MG in SODIUM CHLORIDE 0.9% 50 ML IV SCH ×2 (10:50→21:18)
[2024-03-13] MEDS: ACETAMINOPHEN 325 MG TAB PO PRN (23:35)
[2024-03-14 07:28] LABS: BUN Creatinine Ratio 10.4 (10-20); Calcium 8.6 mg/dl (8.6-10.3); Creatinine Clr Calc Pharmacy 93.5 ml/min; Est GFR (African American) 86.9 ml/min; Magnesium 1.7 mg/dl (1.7-2.4); Potassium 3.9 mmol/L (3.5-5.1)
--- NOTE | 2024-03-14 10:23 | Hospitalist Progress Note ---
Date of Service March 14, 2024 Assessment & Plan (1) CVA (cerebral vascular accident): Plan: Presyncopal episode on the evening of 03/05, then dizziness/nausea/vomiting on 03/06 - presenting symptoms have resolved Hx of vertigo; patient reports this feels prior to similar episodes; not currently on outpatient medications Head CTA revealed no acute intracranial abnormalities Brain MRI w/wo revealed an acute v. subacute lacunar infarct in the corpus callosum Neck CTA revealed 80% stenosis within the proximal right ICA and 90% stenosis within the left ICA - Vascular surgery consulted, as this is a symptomatic stroke (on Eliquis) in the setting of severe stenosis - agree could benefit from surgical management, but not acutely - follow up outpatient - will need establish with outpatient cardiology/clearance - discussed with PA on 03/14 as family was really hoping to have procedure done inpatient, but procedure is elective and would have to be done outpatient - Neurology consulted - Continue Elqiuis. Add ASA 81mg - Continue pravastatin - LDL goal less than 70 - Follow up outpatient for concerns for peripheral neuropathy - Vitamin B1 level <6 - empiric PO treatment started while awaiting results, started on IV therapy 03/13 - vitamin b12 level: 564, no supplementation needed - discussed case with Dr. Chowdary 03/11, continue midodrine and trial compression stockings (pt unable to comfortable wear the sizes we have) -A1c: 6.7, defer changes to CVA guideline directed therapy to PCP Continue aspirin 81 mg daily (famotidine scheduled at this causes pt heartburn) Echocardiogram: EF 55-60%, no regional wall motion abnormalities, mild pulmonary HTN. no intaatrial shunt PT/OT - may need rehab, has refused multiple therapy sessions due to not feeling well (2) Orthostasis: Plan: Midodrine increased to 7.5mg TID 03/09 After extensive chart review - no record of atrial fibrillation. SR with PVCs and PACs on tele. She was started on Metoprolol during her 11/2023 admission to follow guideline directed therapy for heart failure. She is on emt intermediate Eliquis for repeat DVT/PEs. Since November she has had multiple hospitalizations and switch back and forth from Coreg to Metoprolol, and had a period where this was d/c at [facility]. She has not seen cardiology in the outpatient setting. -Given her low BPs, will stop metoprolol at this time. -encourage outpatient cardiology follow up - Compression stocking trialed, but did not properly fit patient - AM cortisol 14 - not concerned for adrenal insufficiency Patient also reports nausea when standing - this has improved with scheduled meclizine (3) Ileostomy in place: Plan: Ostomy care QS Continue ciprofloxacin and metronidazole for fistulas - pt has been on this for years (4) CHF (congestive heart failure): Plan: Chronic HFpEF Last echo revealed LVEF at 60 to 65% Not currently taking torsemide; will hold potassium supplementation - Echo as above (5) Diabetes mellitus, type 2: Plan: Hgb a1c: 6.7 SSI; with target BSG range 110-140mg/dL, CF 30, carb ratio 10 BSG ACHS Patient is not on guideline DM therapy to also benefit CVA risk, however with overall well controlled diabetes at this time, will defer change in regiment to PCP. (6) Hypomagnesemia: Plan: Resolved. Will downgrade to medical (7) Vertigo: Plan: Meclizine 12.5 mg p.o. q8h scheduled symptoms have improved with this (8) Morbid obesity: Plan: Morbid obesity with BMI 51.1 Plan Disposition: continued inpatient stay. Dispo largely dependent on how she does at therapy. Will downgrade to medical VTE PPx: On Rachel family updated by phone 03/14 Admission and Anticipated Discharge Date Admission Date: March 09, 2024 Supervising Physician Co-Signing Physician Notes Attending Attestation - Chart reviewed in detail, care plan d/w KINDRA Schuler. I agree w/ the sams components of her documentation. Of note - I did not perform a personal bedside visit or examination today. Papi Zarate MD Subjective Patient seen resting in bed. States she has not been to the edge of the bed today. Reports feeling well - denies lightheadedness or dizziness. Encouraged patient to do her best today with PT and OT as these evals will determine her next placement Tele - PACs 80s Review of Systems Review of Systems: All systems reviewed & are unremarkable except as noted in Subjective Physical Exam Physical Exam: General: NAD, VS as above Resp: normal respiratory effort, lungs clear to auscultation CV:RRR, no murmur, Abd: ostomy in place RLQ, non tender, no hepatosplenomegaly Extremities: Moves all extremities, no edema. Reports decreased sensation to right leg. Neuro: A&O x3, Results & Data Results & Data Vital Signs (Past 12 Hours) Vital Signs Temp Pulse Pulse Resp BP Pulse Ox O2 Del Method 03/14/24 09:49 65 03/14/24 07:41 36.5 C 83 20 109/68 96 Room Air 03/14/24 03:59 36.5 C 72 18 138/76 93 Room Air 03/13/24 23:21 36.5 C 75 16 135/77 92 Room Air 03/13/24 22:58 69 Laboratory Results BMP and mag reviewed PG Care Time/CCT Total # of Minutes Spent Total Time Spent with Patient: Total time spent is greater than 50% in coordination of care (as documented) at patient's floor/unit and/or counseling patient: Coding Level of Care Code 21347 SUB INP/OBS CARE 3/50MIN Diagnoses CVA (cerebral vascular accident) I63.9 Orthostasis I95.[address] Z93.2 CHF (congestive heart failure) I50.9 Heart failure chronicity: acute Heart failure type: unspecified Diabetes mellitus, type 2 E11.9 Hypomagnesemia E83.42 Vertigo R42 Morbid obesity E66.01 (4) CHF (congestive heart failure) Heart failure chronicity: acute Heart failure type: unspecified Qualified Code(s): I50.9 - Heart failure, unspecified
--- NOTE | 2024-03-15 07:51 | Hospitalist Progress Note ---
Date of Service March 15, 2024 Assessment & Plan (1) CVA (cerebral vascular accident): Plan: Presyncopal episode on the evening of 03/05, then dizziness/nausea/vomiting on 03/06 - presenting symptoms have resolved Hx of vertigo; patient reports this feels prior to similar episodes; not currently on outpatient medications Head CTA revealed no acute intracranial abnormalities Brain MRI w/wo revealed an acute v. subacute lacunar infarct in the corpus callosum Neck CTA revealed 80% stenosis within the proximal right ICA and 90% stenosis within the left ICA Vascular surgery consulted, as this is a symptomatic stroke (on Eliquis) in the setting of severe stenosis - agree could benefit from surgical management, but not acutely - follow up outpatient - will need establish with outpatient cardiology/clearance - discussed with PA on 03/14 as family was really hoping to have procedure done inpatient, but procedure is elective and would have to be done outpatient Neurology consulted - Continue Elqiuis. Add ASA 81mg - Continue pravastatin - LDL goal less than 70 - Follow up outpatient for concerns for peripheral neuropathy - Vitamin B1 level <6 - empiric PO treatment started while awaiting results, started on IV therapy 03/13 - vitamin b12 level: 564, no supplementation needed - discussed case with Dr. Chowdary 03/11, continue midodrine and trial compression stockings (pt unable to comfortable wear the sizes we have) A1c: 6.7, defer changes to CVA guideline directed therapy to PCP Continue aspirin 81 mg daily (famotidine scheduled at this causes pt heartburn) Echocardiogram: EF 55-60%, no regional wall motion abnormalities, mild pulmonary HTN. no inta-atrial shunt PT/OT - may need rehab, has refused multiple therapy sessions due to not feeling well 03/15 Nausea/dry heaving this morning, mucus appearance, no blood. Pepcid IVP x 1, scheduling PO BID while on ASA/eliquis as was getting pepcid in the evening as aspirin in the day. Of note, patient does have hx gastric bypass surgery in the past. If any concerns for bleeding would switch to Plavix over aspirin but ok'd by neuro to continue either or Phenergan x 1 ordered for nausea w/ reported improvement Check KUB for completeness Making meclizine PRN, had been getting scheduled and will monitor for prn dosing to prevent drowsiness/memory impairment given admitted fro acute/subacute CVA on eliquis for recent DVT/PE earlier this year. ?Dysautonomia from her underlying DM/peripheral neuropathy? ?nausea w/ standing from her Prior admit when I had her in November rec neuro outpt f/u for nonemergent neuro/calcified lesion. Of note, did have cirrhotic liver morphology as well as calcified lesion thoracic spine. Was on torsemide 2-3x/week, weights during admission in 150-160kg, presently 135-145kg and do not suspect volume overloaded at present. TSH wnl 0.415 That admission does note dumbbell shaped lesion T6-T7 level extending outward from thecal sac and iatrogenic change vs atypical appearance of nerve sheath tumor or meningioma reported. ?contributing to current presentation when standing. Will message Neuro for discussion/consider contacting Dr Schroeder for review prior imaging but hold off acute imaging for now -- per neuro, "can asses this issue further as outpatient, could get MRI T-spine w/wo to better asses, prob not urgent issue though" Had supervising provider also review chart/imaging and did not feel needing any acute imaging at this time Continue IV thiamine replacement for B1 <6 (had been given PO empiric supplementation prior to IV therapy) Continue PT/OTCiarra planned at dc until able to move in with daughter. Per nursing, patient was able to get up to side of bed today/dangle her feet (however this is when she developed nausea/dry heaving) Monitor labs/exam on repeat (2) Orthostasis: Plan: Midodrine increased to 7.5mg TID 4/10 AM cortisol 14 - not concerned for adrenal insufficiency Compression stocking trialed, but did not properly fit patient After extensive chart review - no record of atrial fibrillation. SR with PVCs and PACs on tele. She was started on Metoprolol during her 11/2023 admission to follow guideline directed therapy for heart failure. She is on extermination inspector Eliquis for repeat DVT/PEs. Since November she has had multiple hospitalizations and switch back and forth from Coreg to Metoprolol, and had a period where this was d/c at [facility]. ECHO during November admission w/ EF 50-55% and was to be discharged on torsemide 10mg PO daily at that time, not currently getting (more for suspected cirrhosis). Repeat ECHO since that time (dx w/ PE/DVTs) w/ improvement in EF 55- 60% She has not seen cardiology in the outpatient setting. -Given her low BPs, will stop metoprolol at this time. -encourage outpatient cardiology follow up , will consider touching base w/ on-call provider in AM pending repeat echo Patient also reports nausea when standing - apparently improved w/ meclizine prior but had worsened symptoms w/ such scheduled dosing -- will hold off further for now. Continue midodrine, increased 7.5mg TID Orthostatics improved on repeat but will ordered again for eval Check BNP w/ AM labs, does mention dilated IVC on ECHO 03/08/2024 however weights appear decreased from November and will monitor/ask RN to check weights in AM (3) Ileostomy in place: Plan: Ostomy care QS Continue ciprofloxacin and metronidazole for fistulas - pt has been on this for years Does have hx cirrhosis/prior to have followed by Dr Bonilla and did not have any abdominal ascites for tap last admission but was on torsemide, suspected to have been needing to be taking 2-3x/wk) Really should have [facility] follow up at in Monitor ostomy output, can check cdiff given chronic abx use. Also could be contributing to her weakness? (4) CHF (congestive heart failure): Plan: Chronic HFpEF Last echo revealed LVEF at 60 to 65% Not currently taking torsemide; will hold potassium supplementation Echo as above , check BNP w/ AM labs (5) Diabetes mellitus, type 2: Plan: Hgb a1c: 6.7 SSI; with target BSG range 110-140mg/dL, CF 30, carb ratio 10 BSG ACHS Patient is not on guideline DM therapy to also benefit CVA risk, however with overall well controlled diabetes at this time, will defer change in regiment to PCP. (6) Hypomagnesemia: Plan: Resolved, downgraded off telemetry Will add w/ AM labs for continued monitoring, likely from GI losses. cdiff to be checked as above given ostomy/chronic abx use (7) Vertigo: Plan: Meclizine 12.5 mg p.o. q8h scheduled --> CHANGING TO PRN FOR NOW to prevent increased side effects from such and will monitor (8) Morbid obesity: Plan: Morbid obesity with BMI 51.1 Plan VTE PPx: On Eliquis for remote hx DVT/PE Dispo largely dependent on how she does with therapy (however reportedly was able to sit at side of bed today with nursing) to determine if needing rehab prior to returning to [facility] until able to move in with her daughter CM to follow pending repeat therapy nico family updated by phone 03/14, will plan to call again in AM 03/16 Admission and Anticipated Discharge Date Admission Date: March 09, 2024 Supervising Physician Co-Signing Physician Notes The patient was not seen by me. The chart was reviewed. Case discussed with KINDRA Wilkinson. Agree with assessment and plan Subjective Evaluated this afternoon, nauseated/dry heaving. Some mucus production, ongoing nausea reported. She reported ongoing hip discomfort this morning, provided tramadol with relief per nursing. Was seen by therapy and able to get to side of bed/dangle her legs today. She reports the nausea/vomiting followed her getting up and moving around. Was given dose of zofran, will see about dose of Phenergan. Ostomy w/ soft/liquid output. Discussed possible meclizine and mention about scheduling, however appears has been scheduled q8h and will place further on hold. Did not eat much for lunch due to nausea. KUB ordered for delfina given n/v, on chronic cipro/flagyl for fistula disease/ulcerative colitis. Discussed scheduling her pepcid at time of aspirin as appears was to have been given with her aspirin to prevent upset stomach and making BID. Ordered IVP x 1 for now as well. No fever/chills, chest pain, shortness of breath reported at this time. Questions/concerns addressed at this time. Physical Exam Physical Exam: General: 78yo female sitting in bed, nauseated, occasional dry heaving but VSS/no acute distress HEENT: head atraumatic, normocephalic, thick neck, trachea midline +carotid bruit Resp: even/unlabored, slightly diminished in the bases, on room air CV: RRR, +systolic murmur, no pitting edema but chronic LE edema, calves nontender, pulses palpable GI: +BS, slight distension, ostomy RLQ w/ liquid/softened stool ; no parra MSK/Neuro: generalized weakness but nonfocal, answering questions appropriately Psych: AOx3, fatigued appearing Results & Data Results & Data Vital Signs (Past 12 Hours) Vital Signs Temp Pulse Resp BP Pulse Ox O2 Del Method 03/15/24 03:35 36.5 C 73 16 138/84 95 Room Air 03/14/24 23:09 36.7 C 74 16 123/63 95 Room Air Laboratory Results 03/15/24 03/15/24 03/15/24 Range/Units 11:58 08:16 07:59 Sodium 140 (136-145) mmol/L Potassium 4.4 (3.5-5.1) mmol/L Chloride 104 (98-107) mmol/L Carbon Dioxide 29 (21-32) mmol/L Anion Gap 7 (3-11) BUN 7 (6-23) mg/dl Creatinine 0.77 (0.6-1.2) mg/dl Est Cr Clr Drug Dosing 89.6 ml/min Est GFR ( Amer) 86.9 ml/min Est GFR (Non-Af Amer) 75.0 ml/min BUN/Creatinine Ratio 9.1 L (10-20) Glucose 131 H (70-99(Fasting)) mg/dl POC Glucose 115 H 106 H (70-99) mg/dl Calcium 9.0 (8.6-10.3) mg/dl Magnesium 1.7 (1.7-2.4) mg/dl 03/14/24 03/14/24 Range/Units 20:15 17:15 Sodium (136-145) mmol/L Potassium (3.5-5.1) mmol/L Chloride (98-107) mmol/L Carbon Dioxide (21-32) mmol/L Anion Gap (3-11) BUN (6-23) mg/dl Creatinine (0.6-1.2) mg/dl Est Cr Clr Drug Dosing ml/min Est GFR ( Amer) ml/min Est GFR (Non-Af Amer) ml/min BUN/Creatinine Ratio (10-20) Glucose (70-99(Fasting)) mg/dl POC Glucose 118 H 85 (70-99) mg/dl Calcium (8.6-10.3) mg/dl Magnesium (1.7-2.4) mg/dl PG Care Time/CCT Total # of Minutes Spent Total Time Spent with Patient: Total time spent is greater than 50% in coordination of care (as documented) at patient's floor/unit and/or counseling patient: Coding Level of Care Code 95701 SUB INP/OBS CARE MIN Diagnoses CVA (cerebral vascular accident) I63.9 Orthostasis I95.[address] Z93.2 CHF (congestive heart failure) I50.9 Heart failure chronicity: acute Heart failure type: unspecified Diabetes mellitus, type 2 E11.9 Hypomagnesemia E83.42 Vertigo R42 Morbid obesity E66.01 (4) CHF (congestive heart failure) Heart failure chronicity: acute Heart failure type: unspecified Qualified Code(s): I50.9 - Heart failure, unspecified
[2024-03-15 08:47] LABS: BUN Creatinine Ratio 9.1 (10-20); Creatinine Clr Calc Pharmacy 89.6 ml/min; Est GFR (African American) 86.9 ml/min; Magnesium 1.7 mg/dl (1.7-2.4); Potassium 4.4 mmol/L (3.5-5.1)
[2024-03-15] MEDS: PROMETHAZINE HCL 6.25 MG in SODIUM CHLORIDE 0.9% 50 ML IV STA (13:33)
[2024-03-15] MEDS: FAMOTIDINE 20MG IV PUSH 20 MG/5 ML SYR IV STA (13:33)
--- NOTE | 2024-03-15 19:03 | XRay Report ---
KUB CLINICAL HISTORY: Nausea and vomiting. FINDINGS: 5 AP, portable, supine abdominal radiographs are correlated with abdominal CT dated 3. Cholecystectomy clips are seen in the right upper quadrant. Numerous surgical clips project over t he pelvis. There is no radiographic evidence of high-grade bowel obstruction. An ostomy projects over the right lower quadrant. No evidence of intraperitoneal free air is seen on these supine images. Th ere are no abnormal abdominal calcifications. The skeletal structures are osteopenic and appear intac t. Advanced spondylotic change is seen in the spine. Arthritic change is noted in the shoulders. IMPRESSION: There is no radiographic evidence of high-grade bowel obstruction. Electronically signed by: Aramis Arceo M.D. 03/15/2024 7:02 PM
[2024-03-15] MEDS: FAMOTIDINE 20 MG TAB PO SCH (19:59)
--- NOTE | 2024-03-16 07:52 | Hospitalist Progress Note ---
Date of Service March 16, 2024 Assessment & Plan (1) CVA (cerebral vascular accident): Plan: Presyncopal episode on the evening of 03/05, then dizziness/nausea/vomiting on 03/06 - presenting symptoms have resolved Hx of vertigo; patient reports this feels prior to similar episodes; not currently on outpatient medications Head CTA revealed no acute intracranial abnormalities Brain MRI w/wo revealed an acute v. subacute lacunar infarct in the corpus callosum Neck CTA revealed 80% stenosis within the proximal right ICA and 90% stenosis within the left ICA Vascular surgery consulted, as this is a symptomatic stroke (on Eliquis) in the setting of severe stenosis - agree could benefit from surgical management, but not acutely - follow up outpatient - will need establish with outpatient cardiology/clearance - discussed with PA on 03/14 as family was really hoping to have procedure done inpatient, but procedure is elective and would have to be done outpatient Neurology consulted - Continue Elqiuis. Add ASA 81mg - Continue pravastatin - LDL goal less than 70 - Follow up outpatient for concerns for peripheral neuropathy - Vitamin B1 level <6 - empiric PO treatment started while awaiting results, started on IV therapy 03/13 - vitamin b12 level: 564, no supplementation needed - discussed case with Dr. Chowdary 03/11, continue midodrine and trial compression stockings (pt unable to comfortable wear the sizes we have) A1c: 6.7, defer changes to CVA guideline directed therapy to PCP Continue aspirin 81 mg daily (famotidine scheduled at this causes pt heartburn) Echocardiogram: EF 55-60%, no regional wall motion abnormalities, mild pulmonary HTN. no inta-atrial shunt PT/OT - may need rehab, has refused multiple therapy sessions due to not feeling well 03/15 Nausea/dry heaving this morning, mucus appearance, no blood. Pepcid IVP x 1, scheduling PO BID while on ASA/eliquis as was getting pepcid in the evening as aspirin in the day. Of note, patient does have hx gastric bypass surgery in the past. If any concerns for bleeding would switch to Plavix over aspirin but ok'd by neuro to continue either or Phenergan x 1 ordered for nausea w/ reported improvement Check KUB for completeness Making meclizine PRN, had been getting scheduled and will monitor for prn dosing to prevent drowsiness/memory impairment given admitted fro acute/subacute CVA on eliquis for recent DVT/PE earlier this year. ?Dysautonomia from her underlying DM/peripheral neuropathy? ?nausea w/ standing from her Prior admit when I had her in November rec neuro outpt f/u for nonemergent neuro/calcified lesion. Of note, did have cirrhotic liver morphology as well as calcified lesion thoracic spine. Was on torsemide 2-3x/week, weights during admission in 150-160kg, presently 135-145kg and do not suspect volume overloaded at present. TSH wnl 0.415 That admission does note dumbbell shaped lesion T6-T7 level extending outward from thecal sac and iatrogenic change vs atypical appearance of nerve sheath tumor or meningioma reported. ?contributing to current presentation when standing. Will message Neuro for discussion/consider contacting Dr Schroeder for review prior imaging but hold off acute imaging for now -- per neuro, "can asses this issue further as outpatient, could get MRI T-spine w/wo to better asses, prob not urgent issue though" Had supervising provider also review chart/imaging and did not feel needing any acute imaging at this time Continue IV thiamine replacement for B1 <6 (had been given PO empiric supplementation prior to IV therapy) Continue PT/OT, Ciarra planned at dc until able to move in with daughter. Per nursing, patient was able to get up to side of bed today/dangle her feet (however this is when she developed nausea/dry heaving) Monitor labs/exam on repeat 03/16 Patient appears much better today since stopping scheduled meclizine however had not been up out of bed. Nursing to get up to side of bed for supper and will consider prn meclizine if needed No further nausea/vomiting. -Continue pepcid PO BID Appears alert/oriented. Remains on eliquis/aspirin Planning to update daughter this afternoon -- Discussed w/ daughter Sherrie and also suspect her chronic PO Flagyl contributing to her nausea symptoms and she mentioned GI f/u and possible consideration for infusions but they never followed up. Plan to reach out to [facility] in AM w/ navigator for discussion. ?remicade. 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 Also discussed avoiding TIFFANIE meclizine but can use if needed Monitor labs in AM Planning for Ciarra however likely needing rehab prior to returning, CM following. (2) Orthostasis: Plan: Midodrine increased to 7.5mg TID 03/09 AM cortisol 14 - not concerned for adrenal insufficiency Compression stocking trialed, but did not properly fit patient After extensive chart review - no record of atrial fibrillation. SR with PVCs and PACs on tele. She was started on Metoprolol during her 11/2023 admission to follow guideline directed therapy for heart failure. She is on nursing home Eliquis for repeat DVT/PEs. Since November she has had multiple hospitalizations and switch back and forth from Coreg to Metoprolol, and had a period where this was d/c at [facility]. ECHO during November admission w/ EF 50-55% and was to be discharged on torsemide 10mg PO daily at that time, not currently getting (more for suspected cirrhosis). Repeat ECHO since that time (dx w/ PE/DVTs) w/ improvement in EF 55- 60% She has not seen cardiology in the outpatient setting. -Given her low BPs, will stop metoprolol at this time. -encourage outpatient cardiology follow up Nausea w/ standing, apparently improved w/ prior tiffanie meclizine but had been in bed and placed further to prn ECHO 03/08 w/ similar findings, moderate concentric LVF. mild pulm HTN, no obvious shunt Continue midodrine, increased to 7.5mg TID Monitor orthostatics as able (3) Ileostomy in place: Plan: Ostomy care QS Continue ciprofloxacin and metronidazole for fistulas - pt has been on this for years Does have hx cirrhosis/prior to have followed by Dr Bonilla/chioma and did not have any abdominal ascites for tap last admission but was on torsemide, suspected to have been needing to be taking 2-3x/wk) Monitor ostomy output, can check cdiff given chronic abx use Will reach out to [facility] in AM for discussion (4) CHF (congestive heart failure): Plan: Chronic HFpEF Last echo revealed LVEF at 60 to 65% Not currently taking torsemide; will hold potassium supplementation Echo as above , BNP slightly worse but difficult body habitus but without significant pitting edema/weights down and holding off diuretics for now given above (5) Diabetes mellitus, type 2: Plan: Hgb a1c: 6.7 SSI; with target BSG range 110-140mg/dL, CF 30, carb ratio 10 BSG ACHS Patient is not on guideline DM therapy to also benefit CVA risk, however with overall well controlled diabetes at this time, will defer change in regiment to PCP. (6) Hypomagnesemia: Plan: Resolved, downgraded off telemetry Mag 1.7 and will continue to monitor (7) Vertigo: Plan: Meclizine 12.5 mg p.o. q8h scheduled --> CHANGED TO PRN to prevent increased side effects from such and appears improved but hasn't been up today. Monitor w/ activity Outpt vascular f/u once cardiac clearance (8) Morbid obesity: Plan: Morbid obesity with BMI 51.1 s/p gastric bypass in the past Plan VTE PPx:Eliquis/ASA as above Updated daughter 03/16, plan to reach out to [facility] in AM but monitor symptoms w/ activity. PT/OT consults likely needing rehab prior to return to [facility] (before being able to move in with daughter). CM following Admission and Anticipated Discharge Date Admission Date: March 09, 2024 Supervising Physician Co-Signing Physician Notes the patient was not seen by me. Chart reviewed. Case discussed with KINDRA Wilkinson. Agree with assessment and plan. Subjective Evaluated this afternoon, sitting up in bed, reports feeling better/no further nausea/dry heaves however has not been out of bed. Appears improved since stopping scheduled meclizine but can continue prn if needed if having issues with activity. No CP/SOB, fevers or chills. Ok w/ updating daughter this afternoon, anticipating dc to rehab. Ostomy needing emptied, daughter to bring supplies tomorrow for change. Questions/concerns addressed at this time. Discussed/updated daughter -- inquired about GI f/u. Reports was to consider infusion rather than abx, unsure. Discussed will reach out to office. Also discussed meclizine changed and continued ambulation encouraged but suspect her symptoms multifactorial. Physical Exam Physical Exam: General: 78yo female sitting in bed, appears improved, NAD HEENT: head atraumatic, normocephalic, thick neck, trachea midline +carotid bruit Resp: even/unlabored, slightly diminished in the bases, on room air CV: RRR, +systolic murmur, no pitting edema but chronic LE edema, calves nontender, pulses palpable GI: +BS, slight distension, ostomy RLQ w/ liquid/softened stool ; no parra, purewick w/ concentrated urine MSK/Neuro: generalized weakness but nonfocal, answering questions appropriately Psych: AOx3, fatigued appearing Results & Data Results & Data Vital Signs (Past 12 Hours) Vital Signs Temp Pulse Resp BP BP Pulse Ox O2 Del Method 03/16/24 07:33 36.4 C L 79 16 119/72 94 Room Air 03/16/24 04:09 36.5 C 94 H 20 168/75 H 96 Room Air 03/15/24 23:33 36.4 C L 89 20 103/68 95 Room Air 03/15/24 19:50 36.4 C L 97 H 20 98/65 L 98 Room Air Laboratory Results 03/16/24 03/16/24 03/16/24 Range/Units 17:15 12:21 08:15 WBC (4.8-10.8) K/ul RBC (4.20-5.40) M/uL Hgb (12.0-16.0) g/dl Hct (37.0-47.0) % MCV (80.0-100.0) fL MCH (25.0-34.0) pg MCHC (32.0-36.0) g/dL RDW Std Deviation (36.4-46.3) fL RDW Coeff of Laurie (11.5-14.5) % Plt Count (130-400) K/uL MPV (9.4-12.4) fL Sodium (136-145) mmol/L Potassium (3.5-5.1) mmol/L Chloride (98-107) mmol/L Carbon Dioxide (21-32) mmol/L Anion Gap (3-11) BUN (6-23) mg/dl Creatinine (0.6-1.2) mg/dl Est Cr Clr Drug Dosing ml/min Est GFR ( Amer) ml/min Est GFR (Non-Af Amer) ml/min BUN/Creatinine Ratio (10-20) Glucose (70-99(Fasting)) mg/dl POC Glucose 104 H 116 H 97 (70-99) mg/dl Calcium (8.6-10.3) mg/dl Magnesium (1.7-2.4) mg/dl Total Bilirubin (0.2-1.0) mg/dl AST (13-39) U/L ALT (7-52) U/L Alkaline Phosphatase (34-104) U/L B-Natriuretic Peptide (0-100) pg/ml Total Protein (6.0-8.3) gm/dl Albumin (3.4-5.0) gm/dl Globulin (2.5-4.0) gm/dl Albumin/Globulin Ratio (0.9-2) 03/16/24 03/15/24 Range/Units 08:03 20:06 WBC 6.72 (4.8-10.8) K/ul RBC 4.04 L (4.20-5.40) M/uL Hgb 11.7 L (12.0-16.0) g/dl Hct 36.8 L (37.0-47.0) % MCV 91.1 (80.0-100.0) fL MCH 29.0 (25.0-34.0) pg MCHC 31.8 L (32.0-36.0) g/dL RDW Std Deviation 53.4 H (36.4-46.3) fL RDW Coeff of Laurie 15.9 H (11.5-14.5) % Plt Count 270 (130-400) K/uL MPV 10.7 (9.4-12.4) fL Sodium 139 (136-145) mmol/L Potassium 4.1 (3.5-5.1) mmol/L Chloride 103 (98-107) mmol/L Carbon Dioxide 29 (21-32) mmol/L Anion Gap 7 (3-11) BUN 7 (6-23) mg/dl Creatinine 0.76 (0.6-1.2) mg/dl Est Cr Clr Drug Dosing 92.3 ml/min Est GFR ( Amer) 88.3 ml/min Est GFR (Non-Af Amer) 76.2 ml/min BUN/Creatinine Ratio 9.2 L (10-20) Glucose 120 H (70-99(Fasting)) mg/dl POC Glucose 124 H (70-99) mg/dl Calcium 9.0 (8.6-10.3) mg/dl Magnesium 1.7 (1.7-2.4) mg/dl Total Bilirubin 0.5 (0.2-1.0) mg/dl AST 10 L (13-39) U/L ALT 6 L (7-52) U/L Alkaline Phosphatase 66 (34-104) U/L B-Natriuretic Peptide 359 H (0-100) pg/ml Total Protein 6.1 (6.0-8.3) gm/dl Albumin 3.3 L (3.4-5.0) gm/dl Globulin 2.8 (2.5-4.0) gm/dl Albumin/Globulin Ratio 1.2 (0.9-2) PG Care Time/CCT Total # of Minutes Spent Total Time Spent with Patient: Total time spent is greater than 50% in coordination of care (as documented) at patient's floor/unit and/or counseling patient: Coding Level of Care Code 49895 SUB INP/OBS CARE 350MIN Diagnoses CVA (cerebral vascular accident) I63.9 Orthostasis I95.[address] Z93.2 CHF (congestive heart failure) I50.9 Heart failure chronicity: acute Heart failure type: unspecified Diabetes mellitus, type 2 E11.9 Hypomagnesemia E83.42 Vertigo R42 Morbid obesity E66.01 (4) CHF (congestive heart failure) Heart failure chronicity: acute Heart failure type: unspecified Qualified Code(s): I50.9 - Heart failure, unspecified
[2024-03-16 08:52] LABS: Hematocrit (blood only) 36.8 % (37.0-47.0); Hemoglobin 11.7 g/dl (12.0-16.0); Mean Corpuscular Hgb Conc 31.8 g/dL (32.0-36.0); Mean Corpuscular Volume 91.1 fL (80.0-100.0); Mean Platelet Volume 10.7 fL (9.4-12.4); Platelet Count 270 K/uL (130-400); RDW Coefficient of Variation 15.9 % (11.5-14.5); RDW Standard Deviation 53.4 fL (36.4-46.3); Red Blood Count 4.04 M/uL (4.20-5.40); White Blood Count 6.72 K/ul (4.8-10.8)
[2024-03-16 09:10] LABS: Albumin Globulin Ratio 1.2 (0.9-2); Albumin Level 3.3 gm/dl (3.4-5.0); BUN Creatinine Ratio 9.2 (10-20); Bilirubin,Total 0.5 mg/dl (0.2-1.0); Creatinine Clr Calc Pharmacy 92.3 ml/min; Est GFR (African American) 88.3 ml/min; Est GFR (Non-African American) 76.2 ml/min; Globulin 2.8 gm/dl (2.5-4.0); Magnesium 1.7 mg/dl (1.7-2.4); Potassium 4.1 mmol/L (3.5-5.1); Total Protein 6.1 gm/dl (6.0-8.3)
[2024-03-16] MEDS: MECLIZINE 12.5 MG TAB PO PRN (21:25)
--- NOTE | 2024-03-17 08:25 | Hospitalist Progress Note ---
Date of Service March 17, 2024 Assessment & Plan (1) CVA (cerebral vascular accident): Plan: Presyncopal episode on the evening of 03/05, then dizziness/nausea/vomiting on 03/06 - presenting symptoms have resolved Hx of vertigo; patient reports this feels prior to similar episodes; not currently on outpatient medications Head CTA revealed no acute intracranial abnormalities Brain MRI w/wo revealed an acute v. subacute lacunar infarct in the corpus callosum Neck CTA revealed 80% stenosis within the proximal right ICA and 90% stenosis within the left ICA Vascular surgery consulted, as this is a symptomatic stroke (on Eliquis) in the setting of severe stenosis - agree could benefit from surgical management, but not acutely - follow up outpatient - will need establish with outpatient cardiology/clearance - discussed with PA on 03/14 as family was really hoping to have procedure done inpatient, but procedure is elective and would have to be done outpatient Neurology consulted - Continue Elqiuis. Add ASA 81mg - Continue pravastatin - LDL goal less than 70 - Follow up outpatient for concerns for peripheral neuropathy - Vitamin B1 level <6 - empiric PO treatment started while awaiting results, started on IV therapy 03/13 - vitamin b12 level: 564, no supplementation needed - discussed case with Dr. Chowdary 03/11, continue midodrine and trial compression stockings (pt unable to comfortable wear the sizes we have) A1c: 6.7, defer changes to CVA guideline directed therapy to PCP Continue aspirin 81 mg daily (famotidine scheduled at this causes pt heartburn) Echocardiogram: EF 55-60%, no regional wall motion abnormalities, mild pulmonary HTN. no inta-atrial shunt PT/OT - may need rehab, has refused multiple therapy sessions due to not feeling well 03/15 Nausea/dry heaving this morning, mucus appearance, no blood. Pepcid IVP x 1, scheduling PO BID while on ASA/eliquis as was getting pepcid in the evening as aspirin in the day. Of note, patient does have hx gastric bypass surgery in the past. If any concerns for bleeding would switch to Plavix over aspirin but ok'd by neuro to continue either or Phenergan x 1 ordered for nausea w/ reported improvement Check KUB for completeness Making meclizine PRN, had been getting scheduled and will monitor for prn dosing to prevent drowsiness/memory impairment given admitted fro acute/subacute CVA on eliquis for recent DVT/PE earlier this year. ?Dysautonomia from her underlying DM/peripheral neuropathy? ?nausea w/ standing from her flagyl Prior admit when I had her in November rec neuro outpt f/u for nonemergent ne uro/calcified lesion. Of note, did have cirrhotic liver morphology as well as calcified lesion thoracic spine. Was on torsemide 2-3x/week, weights during admission in 150-160kg, presently 135-145kg and do not suspect volume overloaded at present. TSH wnl 0.415 That admission does note dumbbell shaped lesion T6-T7 level extending outward from thecal sac and iatrogenic change vs atypical appearance of nerve sheath tumor or meningioma reported. ?contributing to current presentation when standing. Will message Neuro for discussion/consider contacting Dr Schroeder for review prior imaging but hold off acute imaging for now -- per neuro, "can asses this issue further as outpatient, could get MRI T-spine w/wo to better asses, prob not urgent issue though" Had supervising provider also review chart/imaging and did not feel needing any acute imaging at this time Continue IV thiamine replacement for B1 <6 (had been given PO empiric supplementation prior to IV therapy) Continue PT/OT, Ciarra planned at dc until able to move in with daughter. Per nursing, patient was able to get up to side of bed today/dangle her feet (however this is when she developed nausea/dry heaving) Monitor labs/exam on repeat 03/16 Patient appears much better today since stopping scheduled meclizine however had not been up out of bed. Nursing to get up to side of bed for supper and will co nsider prn meclizine if needed No further nausea/vomiting. Continue pepcid PO BID Appears alert/oriented. Remains on eliquis/aspirin Planning to update daughter this afternoon -- Discussed w/ daughter Sherrie and also suspect her chronic PO Flagyl contributing to her nausea symptoms and she mentioned GI f/u and possible consideration for infusions but they never followed up. Plan to reach out to [facility] in AM w/ navigator for discussion. ?remicade. 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 Also discussed avoiding AILIN meclizine but can use if needed 03/17 Remains on eliquis/aspirin, no bleeding reported (but does have darkened stool in ostomy), cdiff negative given chronic abx. check fecal occult for blood. contnue pepcid BID Doing well except having nausea this morning, was following Flagyl. CM navigator reaching out to [facility] for further info regarding plan. Discussed will plan for CTAP for further evaluation but suspect ongoing flagyl contributing to her issues as well Switched antiemetics to phenergan 6.25mg prn, cancelled zofran as phenergan more effective Checked labs given cramping/tingling to legs, mag low and replacement ordered. Remains on B12 supplementation/thiamine as above Did report some dizziness w/ standing last evening but no nausea/vomiting at that time. ?related to her back w/ chronic b/l hip and leg pain (prior xrays w/ OA of bilateral hips) Also discussed w/ Dr Schroeder and had reviewed prior CT lumbar spine. Hard to tell about marrow on CT and reasonable to order MRI for further eval which has been ordered for today PT/OT consulted and plans for rehab before Ciarra (and eventual to daughters following), CM to apply for auth tomorrow pending imaging results/repeat evaluation (2) Orthostasis: Plan: Midodrine increased to 7.5mg TID 4/10 AM cortisol 14 - not concerned for adrenal insufficiency Compression stocking trialed, but did not properly fit patient After extensive chart review - no record of atrial fibrillation. SR with PVCs and PACs on tele. She was started on Metoprolol during her 11/2023 admission to follow guideline directed therapy for heart failure. She is on [employer] Eliquis for repeat DVT/PEs. Since November she has had multiple hospitalizations and switch back and forth from Coreg to Metoprolol, and had a period where this was d/c at [facility]. ECHO during November admission w/ EF 50-55% and was to be discharged on torsemide 10mg PO daily at that time, not currently getting (more for suspected cirrhosis). Repeat ECHO since that time (dx w/ PE/DVTs) w/ improvement in EF 55- 60% She has not seen cardiology in the outpatient setting. -Given her low BPs, will stop metoprolol at this time. -encourage outpatient cardiology follow up, did place consult while inpatient ECHO 03/08 w/ similar findings, moderate concentric LVF. mild pulm HTN, no obvious shunt Continue midodrine 7.5mg TID Meclizine made PRN Orthostatics to be obtained this afternoon when getting up, monitor. Urine is darkened in color but good PO fluid intake and would avoid additional IVF given elevated BNP (3) Ileostomy in place: Plan: Ostomy care QS Continue ciprofloxacin and metronidazole for fistulas - pt has been on this for years Does have hx cirrhosis/prior to have followed by Dr Bonilla/chioma and did not have any abdominal ascites for tap last admission but was on torsemide, suspected to have been needing to be taking 2-3x/wk) cdfiff negative fecal occult ordered, pepcid BID for mod/large hiatal hernia and will continue phenergan for antiemetics ctap for eval, consider GI consult but waiting for more info from [facility] (4) CHF (congestive heart failure): Plan: Chronic HFpEF Last echo revealed LVEF at 60 to 65% Not currently taking torsemide; will hold potassium supplementation Echo as above , BNP slightly worse but difficult body habitus but without significant pitting edema/weights down and holding off diuretics for now given above (5) Diabetes mellitus, type 2: Plan: Hgb a1c: 6.7 SSI; with target BSG range 110-140mg/dL, CF 30, carb ratio 10 BSG ACHS Patient is not on guideline DM therapy to also benefit CVA risk, however with overall well controlled diabetes at this time, will defer change in regiment to PCP. (6) Hypomagnesemia: Plan: Resolved, downgraded off telemetry Mag 1.6 on check, IV replacement ordered and will monitor (7) Vertigo: Plan: Meclizine 12.5 mg p.o. q8h scheduled --> CHANGED TO PRN to prevent increased side effects from such and appears improved but hasn't been up today. Monitor w/ activity Outpt vascular f/u once cardiac clearance (8) Morbid obesity: Plan: Morbid obesity with BMI 51.1 s/p gastric bypass in the past Plan VTE PPx:Eliquis/ASA as above Updated daughter on plan/imaging for eval this afternoon, she is on her way in to see her mother. PT/OT consults for rehab, [facility] can offer bed. CM following and will see about applying for auth tomorrow pending imaging results Admission and Anticipated Discharge Date Admission Date: March 09, 2024 Supervising Physician Co-Signing Physician Notes The patient was not seen by me. The chart was reviewed. Case discussed with KINDRA Wilkinson. Agree with assessment and plan Subjective Evaluated this morning, did have episode of nausea/dry heaving this morning, provided phenergan w/ relief and discussed switching zofran to such. Breathing stable. Did get up to end of bed last night per nursing well but patient did report she felt a little dizzy. Drinking lots of water, purewick with concentrated urine bu t would hold off IVF given does not appear dehydrated on exam but volume status difficult due to body habitus. Did discussed concerns for ongoing Flagyl contributing to her nausea/vomiting and when asked if symptoms occurred following taking this she does endorse this. CM navigator assisting with reaching out to [facility] office to see about most recent plan/possible Remicade maybe and avoiding ongoing abx but will obtain CTAP for eval progression/worsening of her parastomal hernia. Ostomy bag re- enforced at present however daughter to bring supplies this afternoon after work. SHe has b/l LE numbness/tingling but reports not much sensation to her R leg/foot. B12 replacement ordered but discussed I reviewed prior imaging w/ ortho spine and recs for MRI for further eval, however did note if needs surgery would be high risk/need for tertiary center. Will plan to check magnesium/labs for today/replacement if needed. Question/concerns addressed at this time. Physical Exam Physical Exam: General: 78yo female sitting in bed, appears improved, NAD HEENT: head atraumatic, normocephalic, thick neck, trachea midline +carotid bruit Resp: even/unlabored, slightly diminished in the bases, on room air CV: RRR, +systolic murmur, no pitting edema but chronic LE edema, calves nontender, pulses palpable GI: +BS, slight distension, ostomy RLQ w/ darkened blackened liquid stool, re- inforced (daughter bringing supplies this afternoon) ; no parra, purewick w/ concentrated urine, slightly less concentrated today MSK/Neuro: generalized weakness but nonfocal, answering questions appropriately Psych: AOx3, less fatigued appearing Results & Data Results & Data Vital Signs (Past 12 Hours) Vital Signs Temp Pulse Resp BP BP Pulse Ox O2 Del Method 03/17/24 07:26 Room Air 03/17/24 07:18 36.9 C 98 H 16 124/71 94 Room Air 03/17/24 00:19 36.6 C 85 19 120/76 94 Room Air Laboratory Results 03/17/24 03/16/24 03/16/24 Range/Units 07:56 Unknown 20:34 WBC (4.8-10.8) K/ul RBC (4.20-5.40) M/uL Hgb (12.0-16.0) g/dl Hct (37.0-47.0) % MCV (80.0-100.0) fL MCH (25.0-34.0) pg MCHC (32.0-36.0) g/dL RDW Std Deviation (36.4-46.3) fL RDW Coeff of Laurie (11.5-14.5) % Plt Count (130-400) K/uL MPV (9.4-12.4) fL Sodium (136-145) mmol/L Potassium (3.5-5.1) mmol/L Chloride (98-107) mmol/L Carbon Dioxide (21-32) mmol/L Anion Gap (3-11) BUN (6-23) mg/dl Creatinine (0.6-1.2) mg/dl Est Cr Clr Drug Dosing ml/min Est GFR ( Amer) ml/min Est GFR (Non-Af Amer) ml/min BUN/Creatinine Ratio (10-20) Glucose (70-99(Fasting)) mg/dl POC Glucose 102 H 116 H (70-99) mg/dl Calcium (8.6-10.3) mg/dl Magnesium (1.7-2.4) mg/dl Total Bilirubin (0.2-1.0) mg/dl AST (13-39) U/L ALT (7-52) U/L Alkaline Phosphatase (34-104) U/L B-Natriuretic Peptide (0-100) pg/ml Total Protein (6.0-8.3) gm/dl Albumin (3.4-5.0) gm/dl Globulin (2.5-4.0) gm/dl Albumin/Globulin Ratio (0.9-2) Stl C. diff Tox B Gene Negative Cdiff Gene (Neg) 03/16/24 03/16/24 03/16/24 Range/Units 17:15 12:21 08:15 WBC (4.8-10.8) K/ul RBC (4.20-5.40) M/uL Hgb (12.0-16.0) g/dl Hct (37.0-47.0) % MCV (80.0-100.0) fL MCH (25.0-34.0) pg MCHC (32.0-36.0) g/dL RDW Std Deviation (36.4-46.3) fL RDW Coeff of Laurie (11.5-14.5) % Plt Count (130-400) K/uL MPV (9.4-12.4) fL Sodium (136-145) mmol/L Potassium (3.5-5.1) mmol/L Chloride (98-107) mmol/L Carbon Dioxide (21-32) mmol/L Anion Gap (3-11) BUN (6-23) mg/dl Creatinine (0.6-1.2) mg/dl Est Cr Clr Drug Dosing ml/min Est GFR ( Amer) ml/min Est GFR (Non-Af Amer) ml/min BUN/Creatinine Ratio (10-20) Glucose (70-99(Fasting)) mg/dl POC Glucose 104 H 116 H 97 (70-99) mg/dl Calcium (8.6-10.3) mg/dl Magnesium (1.7-2.4) mg/dl Total Bilirubin (0.2-1.0) mg/dl AST (13-39) U/L ALT (7-52) U/L Alkaline Phosphatase (34-104) U/L B-Natriuretic Peptide (0-100) pg/ml Total Protein (6.0-8.3) gm/dl Albumin (3.4-5.0) gm/dl Globulin (2.5-4.0) gm/dl Albumin/Globulin Ratio (0.9-2) Stl C. diff Tox B Gene (Neg) 03/16/24 Range/Units 08:03 WBC 6.72 (4.8-10.8) K/ul RBC 4.04 L (4.20-5.40) M/uL Hgb 11.7 L (12.0-16.0) g/dl Hct 36.8 L (37.0-47.0) % MCV 91.1 (80.0-100.0) fL MCH 29.0 (25.0-34.0) pg MCHC 31.8 L (32.0-36.0) g/dL RDW Std Deviation 53.4 H (36.4-46.3) fL RDW Coeff of Laurie 15.9 H (11.5-14.5) % Plt Count 270 (130-400) K/uL MPV 10.7 (9.4-12.4) fL Sodium 139 (136-145) mmol/L Potassium 4.1 (3.5-5.1) mmol/L Chloride 103 (98-107) mmol/L Carbon Dioxide 29 (21-32) mmol/L Anion Gap 7 (3-11) BUN 7 (6-23) mg/dl Creatinine 0.76 (0.6-1.2) mg/dl Est Cr Clr Drug Dosing 92.3 ml/min Est GFR ( Amer) 88.3 ml/min Est GFR (Non-Af Amer) 76.2 ml/min BUN/Creatinine Ratio 9.2 L (10-20) Glucose 120 H (70-99(Fasting)) mg/dl POC Glucose (70-99) mg/dl Calcium 9.0 (8.6-10.3) mg/dl Magnesium 1.7 (1.7-2.4) mg/dl Total Bilirubin 0.5 (0.2-1.0) mg/dl AST 10 L (13-39) U/L ALT 6 L (7-52) U/L Alkaline Phosphatase 66 (34-104) U/L B-Natriuretic Peptide 359 H (0-100) pg/ml Total Protein 6.1 (6.0-8.3) gm/dl Albumin 3.3 L (3.4-5.0) gm/dl Globulin 2.8 (2.5-4.0) gm/dl Albumin/Globulin Ratio 1.2 (0.9-2) Stl C. diff Tox B Gene (Neg) PG Care Time/CCT Total # of Minutes Spent Total Time Spent with Patient: Total time spent is greater than 50% in coordination of care (as documented) at patient's floor/unit and/or counseling patient: Coding Level of Care Code 30718 SUB INP/OBS CARE 50MIN Diagnoses CVA (cerebral vascular accident) I63.9 Orthostasis I95.[address] Z93.2 CHF (congestive heart failure) I50.9 Heart failure chronicity: acute Heart failure type: unspecified Diabetes mellitus, type 2 E11.9 Hypomagnesemia E83.42 Vertigo R42 Morbid obesity E66.01 (4) CHF (congestive heart failure) Heart failure chronicity: acute Heart failure type: unspecified Qualified Code(s): I50.9 - Heart failure, unspecified
[2024-03-17] MEDS: PROMETHAZINE HCL 6.25 MG in SODIUM CHLORIDE 0.9% 50 ML IV STA (10:42)
[2024-03-17 12:39] LABS: Albumin Globulin Ratio 1.1 (0.9-2); Albumin Level 3.3 gm/dl (3.4-5.0); BUN Creatinine Ratio 9.1 (10-20); Bilirubin,Total 0.4 mg/dl (0.2-1.0); Calcium 8.9 mg/dl (8.6-10.3); Creatinine Clr Calc Pharmacy 91.3 ml/min; Est GFR (African American) 86.9 ml/min; Globulin 2.9 gm/dl (2.5-4.0); Magnesium 1.6 mg/dl (1.7-2.4); Potassium 4.3 mmol/L (3.5-5.1); Total Protein 6.2 gm/dl (6.0-8.3)
[2024-03-17] MEDS: OPTIRAY 320 125ml IV ONE (13:07)
[2024-03-17] MEDS: MAGNESIUM SULFATE / D5W 1 GM/100 ML BAG IV SCH (15:15)
[2024-03-17] MEDS: PROMETHAZINE HCL 6.25 MG in SODIUM CHLORIDE 0.9% 50 ML IV PRN (15:38)
--- NOTE | 2024-03-17 19:19 | CT Scan Report ---
CT SCAN OF THE ABDOMEN AND PELVIS WITH IV CONTRAST CLINICAL HISTORY: Nausea and vomiting. History of Crohn's disease. COMPARISON STUDY: Abdominal CT scans dated 05/06/2023 and 09/05/2022. TECHNIQUE: Following the IV administration of 119 cc of Optiray 300, CT scan of the abdomen and pelvi s is performed from the lung bases to the proximal femora. Images are reviewed in the axial, sagittal , and coronal planes. IV contrast was administered without complication. A dose lowering technique wa s utilized adhering to the principles of ALARA. The examination is degraded by large body habitus, an d by streak artifact in the body wall abutting the CT gantry. CT DOSE: 1736.66 mGy.cm FINDINGS: Lung bases: The heart is top normal in size and without pericardial effusion. There are coronary carmelo ry calcifications. There are trace pleural effusions with dependent atelectasis. Liver: The contrast-enhanced liver is enlarged, measuring 19.2 cm in length. The liver demonstrates d iffusely diminished attenuation indicating steatosis. Nodularity of the surface contour indicates mor phologic changes of cirrhosis. There is no intrahepatic biliary ductal dilatation. The hepatic veins and portal veins are patent. Gallbladder: Surgically absent noting clips in the gallbladder fossa. Spleen: Normal in size and attenuation. There are calcified splenic granulomas. Pancreas: Unremarkable. Adrenal glands: Unremarkable. Kidneys: The contrast enhanced kidneys demonstrate cortical atrophy and are without hydronephrosis. T he kidneys enhance symmetrically. A 2 cm cortical hypodensity in the interpolar left kidney likely re presents a cyst but cannot definitively characterized due to severe streak artifact. Abdominal vasculature: The abdominal aorta is normal in course and caliber noting moderate atheroscle rotic calcification. Stomach and bowel: There is a small hiatal hernia. Postoperative change is noted in the stomach. Ther e is postoperative change from subtotal colectomy and right lower quadrant ileostomy. A peristomal he rnia contains nonobstructed small bowel loops. There is no bowel obstruction. A rectal stump is seen in the pelvis. Peritoneum: There is no intraperitoneal free air or abdominal ascites. There is a fat-containing umbi lical hernia. A midline surgical scar is noted. Lymphadenopathy: None. Pelvic viscera: The bladder, uterus, and adnexa are normal as visualized. Skeletal structures: The skeletal structures are osteopenic. There is moderate lumbosacral spondylosi s. No lytic or blastic lesions are seen. IMPRESSION: 1. No acute infectious or inflammatory findings are identified in the abdomen or pelvis. 2. There is postoperative change from subtotal colectomy and right lower quadrant ileostomy. No bowel obstruction is identified. 3. A parastomal hernia contains nonobstructed small bowel loops. 4. The liver is enlarged, steatotic, and shows morphologic changes of cirrhosis. 5. Trace pleural effusions. 6. Additional findings as above. ACT 112: Negative or not required by law. Electronically signed by: Aramis Arceo M.D. 03/17/2024 7:17 PM
[2024-03-18 06:57] LABS: Hematocrit (blood only) 36.8 % (37.0-47.0); Hemoglobin 11.8 g/dl (12.0-16.0); Mean Corpuscular Hemoglobin 29.1 pg (25.0-34.0); Mean Corpuscular Hgb Conc 32.1 g/dL (32.0-36.0); Mean Corpuscular Volume 90.6 fL (80.0-100.0); Mean Platelet Volume 10.2 fL (9.4-12.4); Platelet Count 245 K/uL (130-400); RDW Coefficient of Variation 15.6 % (11.5-14.5); RDW Standard Deviation 52.2 fL (36.4-46.3); Red Blood Count 4.06 M/uL (4.20-5.40); White Blood Count 5.67 K/ul (4.8-10.8)
[2024-03-18 07:13] LABS: BUN Creatinine Ratio 9.3 (10-20); Calcium 8.8 mg/dl (8.6-10.3); Creatinine Clr Calc Pharmacy 93.8 ml/min; Est GFR (African American) 89.7 ml/min; Est GFR (Non-African American) 77.4 ml/min; Magnesium 1.9 mg/dl (1.7-2.4); Potassium 3.8 mmol/L (3.5-5.1)
--- NOTE | 2024-03-18 08:10 | Hospitalist Progress Note ---
Date of Service March 18, 2024 Assessment & Plan (1) CVA (cerebral vascular accident): Plan: Presyncopal episode on the evening of 03/05, then dizziness/nausea/vomiting on 03/06 Hx of vertigo; patient reports this feels prior to similar episodes; not currently on outpatient medications Head CTA revealed no acute intracranial abnormalities Brain MRI w/wo revealed an acute v. subacute lacunar infarct in the corpus callosum Neck CTA revealed 80% stenosis within the proximal right ICA and 90% stenosis within the left ICA Vascular surgery consulted, as this is a symptomatic stroke (on Eliquis) in the setting of severe stenosis - agree could benefit from surgical management, but not acutely - follow up outpatient - will need establish with outpatient cardiology/clearance - discussed with PA on 03/14 as family was really hoping to have procedure done inpatient, but procedure is elective and would have to be done outpatient Neurology consulted - Continue Elqiuis. Add ASA 81mg - Continue pravastatin - LDL goal less than 70 - Follow up outpatient for concerns for peripheral neuropathy - Vitamin B1 level <6 - empiric PO treatment started while awaiting results, started on IV therapy 03/13 - vitamin b12 level: 564, no supplementation needed - discussed case with Dr. Chowdary 03/11, continue midodrine and trial compression stockings (pt unable to comfortable wear the sizes we have) A1c: 6.7, defer changes to CVA guideline directed therapy to PCP Continue aspirin 81 mg daily (famotidine scheduled at this causes pt heartburn) Echocardiogram: EF 55-60%, no regional wall motion abnormalities, mild pulmonary HTN. no inta-atrial shunt PT/OT - may need rehab, has refused multiple therapy sessions due to not feeling well 03/15 Nausea/dry heaving this morning, mucus appearance, no blood. Pepcid IVP x 1, scheduling PO BID while on ASA/eliquis as was getting pepcid in the evening as aspirin in the day. Of note, patient does have hx gastric bypass surgery in the past. If any concerns for bleeding would switch to Plavix over aspirin but ok'd by neuro to continue either or Phenergan x 1 ordered for nausea w/ reported improvement Check KUB for completeness Making meclizine PRN, had been getting scheduled and will monitor for prn dosing to prevent drowsiness/memory impairment given admitted fro acute/subacute CVA on eliquis for recent DVT/PE earlier this year. ?Dysautonomia from her underlying DM/peripheral neuropathy? ?nausea w/ standing from her flagyl Prior admit when I had her in November rec neuro outpt f/u for nonemergent neuro/calcified lesion. Of note, did have cirrhotic liver morphology as well as calcified lesion thoracic spine. Was on torsemide 2-3x/week, weights during admission in 150-160kg, presently 135-145kg and do not suspect volume overloaded at present. TSH wnl 0.415 That admission does note dumbbell shaped lesion T6-T7 level extending outward from thecal sac and iatrogenic change vs atypical appearance of nerve sheath tumor or meningioma reported. ?contributing to current presentation when standing. Will message Neuro for discussion/consider contacting Dr Schroeder for review prior imaging but hold off acute imaging for now -- per neuro, "can asses this issue further as outpatient, could get MRI T-spine w/wo to better asses, prob not urgent issue though" Had supervising provider also review chart/imaging and did not feel needing any acute imaging at this time Continue IV thiamine replacement for B1 <6 (had been given PO empiric supplementation prior to IV therapy) 03/16 - better since stopping meclizine but hadn't been up much. meclizine made prn, pepcid added for hernia/reflux/nausea w/ improvement Discussed w/ daughter Sherrie and also suspect her chronic PO Flagyl contributing to her nausea symptoms and she mentioned GI f/u and possible consideration for infusions but they never followed up. Plan to reach out to [facility] in AM w/ navigator for discussion. ?remicade. 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 Also discussed avoiding AILIN meclizine but can use if needed 03/17- some nausea following flagyl use.CTAP negaitve for acute infectious process, no bowel obstruction. Mag low/replacement ordered. some dizziness w/ standing but also reporting radicular symptoms on her right hip/leg prompting MRI back given ongoing issue 03/18 APPEARS BETTER TODAY Eliquis/ASA continued, fecal occult NEGATIVE Midodrine for BP support which has been stable, remains off diuretics NO further scheduled or prn meclizine utilized. Phenergan for nausea over zofran as needed IV thiamine replacement for <6 can convert to PO tomorrow. B12 replacement as well Discussed ongoing nausea and symptoms of her peripheral neuropathy/vertigo/nausea/etc/etc likely worsened by her chronic cipro/flagyl use CTAP negative for acute infectious process and opting to hold further abx for now and monitor. Did obtain MRI lumbar/thoracic for further eval: MRI thoracic spine: 1. Again seen is a large calcified extra-axial lesion within the thoracic spinal canal as detailed above. The appearance strongly favors a meningioma, or less likely a calcified nerve sheath tumor. 2. Bony remodeling indicates chronicity. 3. There are severe central canal stenosis related to this lesion with mass effect on the thoracic spinal cord, which is displaced to the right. 4. There is no MRI evidence of cord edema. 5. The lesion also extends through and completely effaces the left T6-T7 neural foramen. Reviewed by Dr Schroeder, patient will need nonemergent neurosurgery eval, can be arranged outpatient given likely chronic nature. Discussed w/ daughter and should have GI f/u for discussions about remicade vs other as likely significant side effects, daina neuropathy likely worsened by FLQ Labs appearing stable, afebrile PT/OT to see today and will apply for [facility] [place] [facility]. (2) Ileostomy in place: Plan: Ostomy care QS Does have hx cirrhosis/prior to have followed by Dr Bonilla/chioma and did not have any abdominal ascites for tap last admission but was on torsemide, suspected to have been needing to be taking 2-3x/wk) cdfiff negative fecal occult ordered, pepcid BID for mod/large hiatal hernia and will continue phenergan for antiemetics ctap for eval WITHOUT acute infectious process, notable hepatic steatosis/cirrhosis (?from meds) SUSPECT CIPRO/FLAGYL making a lot of her symptoms worse --> side effects for Cipro: arthralgias, ST[employer] effects, hepatotoxicity, peripheral neuropathy, tendinopathy. Flagyl: peripheral neuropathy, ataxia, confusion, dysarthria, encephalopathy, vertigo DISCUSSED AND WILL HOLD FURTHER CIPRO/FLAGYL, not benign abx as was told to daughter when asked about risks for half-way use Waiting to hear back from [facility] but will need f/u at discharge. (3) Orthostasis: Plan: Cortisol 14, no concerns for adrenal insuff trialed compression stockings, did not fit SR/PVC and PACs on telemetry Prior started on metoprolol, then switched to coreg and then eventual disctoninued holding off BB given her prior hypotension, outpt cards f/u ECHO during November admission w/ EF 50-55% and was to be discharged on torsemide 10mg PO daily at that time, not currently getting (more for suspected cirrhosis). Repeat ECHO since that time (dx w/ PE/DVTs) w/ improvement in EF 55- 60% ECHO 03/08 w/ similar findings, moderate concentric LVF. mild pulm HTN, no obvious shunt Continues on midodrine, increased from prior to 7.5mg TID and remaining stable. Orthostatic VS in f/u (4) CHF (congestive heart failure): Plan: Chronic HFpEF Last echo revealed LVEF at 60 to 65% Not currently taking torsemide; will hold potassium supplementation Echo as above , BNP slightly worse but difficult body habitus but without significant pitting edema/weights down and holding off diuretics for now given above (5) Diabetes mellitus, type 2: Plan: Hgb a1c: 6.7 SSI; with target BSG range 110-140mg/dL, CF 30, carb ratio 10 BSG ACHS Patient is not on guideline DM therapy to also benefit CVA risk, however with overall well controlled diabetes at this time, will defer change in regiment to PCP. (6) Hypomagnesemia: Plan: Resolved, downgraded off telemetry Mag 1.6 on check, IV replacement ordered and wnl on repeat 1.9 but will monitor. Holding further abx (7) Vertigo: Plan: Outpt vascular f/u once cardiac clearance suspect combination CVA, deconditioning, medication related as above Meclizine 12.5 mg p.o. q8h scheduled --> CHANGED TO PRN to prevent increased side effects from such and appears improved. Monitor w/ activity (8) Morbid obesity: Plan: Morbid obesity with BMI 51.1 s/p gastric bypass in the past (9) Carotid stenosis: Plan: as above, needs outpt f/u continue asa/eliquis Plan VTE PPx:Eliquis/ASA as above Plan: Remains on eliquis/ASA for CVA, thiamine/B12 supplementation HOLDING further cipro/flagyl d/t adverse side effects Meclizine available prn, phenergan for nausea PT/OT to repeat evals/CM applying for auth and pending status possible dc over the weekend Updated daughter Sherrie by phone this afternoon 03/18 At dc, needs f/u vascular (carotid stenosis), cardiology, GI (for chrons/fistula disease) as well as neurosurgery for MRI findings as above Admission and Anticipated Discharge Date Admission Date: March 09, 2024 Supervising Physician Co-Signing Physician Notes The patient was not seen by me. The chart was reviewed. Case discussed with KINDRA Wilkinson. Agree with assessment and plan Subjective Eval this afternoon, gone down for MRI this morning and looked good. Reports she did have a little nausea. No further vomiting. Discussed holding further Flagyl. Reviewed MRI findings and concerns for contribution to her LE symptoms and weakness/numbness in her right leg but will need neurosurgery follow up. PT to see today, planning to apply for auth. Does have numbness/tingling in her hands on occasion . B12, B1 replacement but also discussed contribution from her DM as well as back and metabolic derangements. No fever/chills, chest pain or trouble breathing reported. Planning to update murray orona -- contacted this afternoon and reviewed imaging and discussion about holding off her antibiotics for now and having GI f/u and arrangement for neurosurgery. Has appt w/ vascular for next week w/ cardio and can undergo clearance w/ transport from [facility] but discussed applying for auth as appears improved and consideration for dc to such this weekend pending status. Physical Exam Physical Exam: General: 78yo female sitting in bed, appears improved, NAD HEENT: head atraumatic, normocephalic, thick neck, trachea midline+carotid bruit Resp: even/unlabored, slightly diminished in the bases, on room air CV: RRR, +systolic murmur, no pitting edema but chronic LE edema, calves nontender, pulses palpable GI: +BS, soft, ostomy RLQ liquid/soft stools, L upper quad discomfort but no findings and soft/no warmth/erythema ; no parra, purewick w/ concentrated urine, slightly less concentrated today MSK/Neuro: generalized weakness but nonfocal, answering questions appropriately Psych: AOx3, less fatigued appearing Results & Data Results & Data Vital Signs (Past 12 Hours) Vital Signs Temp Pulse Resp BP Pulse Ox O2 Del Method 03/18/24 07:19 36.4 C L 72 18 124/77 97 Room Air 03/17/24 21:30 Room Air Laboratory Results 03/18/24 03/18/24 03/17/24 Range/Units 07:42 06:08 20:42 WBC 5.67 (4.8-10.8) K/ul RBC 4.06 L (4.20-5.40) M/uL Hgb 11.8 L (12.0-16.0) g/dl Hct 36.8 L (37.0-47.0) % MCV 90.6 (80.0-100.0) fL MCH 29.1 (25.0-34.0) pg MCHC 32.1 (32.0-36.0) g/dL RDW Std Deviation 52.2 H (36.4-46.3) fL RDW Coeff of Laurie 15.6 H (11.5-14.5) % Plt Count 245 (130-400) K/uL MPV 10.2 (9.4-12.4) fL Sodium 138 (136-145) mmol/L Potassium 3.8 (3.5-5.1) mmol/L Chloride 103 (98-107) mmol/L Carbon Dioxide 28 (21-32) mmol/L Anion Gap 7 (3-11) BUN 7 (6-23) mg/dl Creatinine 0.75 (0.6-1.2) mg/dl Est Cr Clr Drug Dosing 93.8 ml/min Est GFR ( Amer) 89.7 ml/min Est GFR (Non-Af Amer) 77.4 ml/min BUN/Creatinine Ratio 9.3 L (10-20) Glucose 114 H (70-99(Fasting)) mg/dl POC Glucose 122 H 111 H (70-99) mg/dl Calcium 8.8 (8.6-10.3) mg/dl Magnesium 1.9 (1.7-2.4) mg/dl Total Bilirubin (0.2-1.0) mg/dl AST (13-39) U/L ALT (7-52) U/L Alkaline Phosphatase (34-104) U/L Total Creatine Kinase 17 L (26-192) U/L Total Protein (6.0-8.3) gm/dl Albumin (3.4-5.0) gm/dl Globulin (2.5-4.0) gm/dl Albumin/Globulin Ratio (0.9-2) 03/17/24 03/17/24 03/17/24 Range/Units 16:36 12:04 11:42 WBC (4.8-10.8) K/ul RBC (4.20-5.40) M/uL Hgb (12.0-16.0) g/dl Hct (37.0-47.0) % MCV (80.0-100.0) fL MCH (25.0-34.0) pg MCHC (32.0-36.0) g/dL RDW Std Deviation (36.4-46.3) fL RDW Coeff of Laurie (11.5-14.5) % Plt Count (130-400) K/uL MPV (9.4-12.4) fL Sodium 138 (136-145) mmol/L Potassium 4.3 (3.5-5.1) mmol/L Chloride 104 (98-107) mmol/L Carbon Dioxide 30 (21-32) mmol/L Anion Gap 4 (3-11) BUN 7 (6-23) mg/dl Creatinine 0.77 (0.6-1.2) mg/dl Est Cr Clr Drug Dosing 91.3 ml/min Est GFR ( Amer) 86.9 ml/min Est GFR (Non-Af Amer) 75.0 ml/min BUN/Creatinine Ratio 9.1 L (10-20) Glucose 141 H (70-99(Fasting)) mg/dl POC Glucose 125 H 127 H (70-99) mg/dl Calcium 8.9 (8.6-10.3) mg/dl Magnesium 1.6 L (1.7-2.4) mg/dl Total Bilirubin 0.4 (0.2-1.0) mg/dl AST 11 L (13-39) U/L ALT 5 L (7-52) U/L Alkaline Phosphatase 65 (34-104) U/L Total Creatine Kinase (26-192) U/L Total Protein 6.2 (6.0-8.3) gm/dl Albumin 3.3 L (3.4-5.0) gm/dl Globulin 2.9 (2.5-4.0) gm/dl Albumin/Globulin Ratio 1.1 (0.9-2) Diagnostic Findings Lumbar Spine MRI 03/17/24 08:44 MR lumbar spine wo con CLINICAL HISTORY: 78 years-old Female with falls/back/hip pain/leg numbness/tingling, meningi. COMPARISON: CT abdomen and pelvis of same day and also 09/05/2022. TECHNIQUE: Multiplanar, multi sequence MRI of the lumbar spine was performed without intravenous contrast. FINDINGS: Conus medullaris terminates at L2. Normal signal within the imaged thoracic spinal cord. The study is mildly motion degraded. There is no acute fracture, subluxation, endplate erosion or significant bone marrow edema. Numerous scattered Tarlov's cysts measure up to 1.9 cm at S2-S3 and measure up to approximately 1.6 cm at the T12-L1 level. The imaged intra-abdominal and paraspinal structures demonstrate no acute abnormality. Moderate to marked atrophy of the paraspinal musculature. Degenerative partial bony fusion of the lower thoracic spine. T12-L1: Moderate intervertebral disc space narrowing with degenerative partial bony fusion anteriorly. Moderate facet arthrosis. Bilateral Tarlov cysts. No central canal or foraminal narrowing. L1-L2: Moderate intervertebral disc space narrowing with bridging osteophytosis and disc osteophyte complex most pronounced anteriorly. Ligamentum flavum thickening with moderate facet arthrosis. There is flattening of the ventral thecal sac without significant central canal stenosis. Moderate right foraminal narrowing. The left neural foramen is patent. L2-L3: Severe intervertebral disc space narrowing with circumferential disc osteophyte complex. Ligamentum flavum thickening with advanced facet arthrosis. Mild to moderate central canal stenosis with AP dimension of the thecal sac measuring 8 mm. Mild to moderate narrowing of the right lateral recess. Moderate right with mild left foraminal narrowing. L3-L4: Moderate to severe intervertebral disc space narrowing. Moderate spondylotic spurring with small circumferential annular disc bulge. Ligamentum flavum thickening with advanced facet arthrosis. Moderate right with severe left lateral recess stenosis. Mild triangular central canal stenosis. Mild right with moderate left foraminal narrowing. L4-L5: Moderate intervertebral disc space narrowing and spondylotic spurring with circumferential disc osteophyte complex. Ligamentum flavum thickening with advanced facet arthrosis and trace facet effusions. Mild triangular central canal stenosis with at least moderate narrowing of the lateral recesses, left greater than right. Mild to moderate bilateral foraminal narrowing. L5-S1: Moderate intervertebral disc space narrowing and spondylotic spurring with circumferential disc osteophyte complex, eccentric to the left neural foramen and far left lateral space. Ligamentum flavum thickening with advanced facet arthrosis and trace facet effusions. Central canal is patent. There is at least mild narrowing of the lateral recesses. Mild to moderate right with mild left foraminal narrowing. IMPRESSION: 1. Discogenic degeneration with spondylotic spurring and advanced facet arthrosis as above resulting in multilevel neural foraminal narrowing. 2. No high-grade central canal stenosis. 3. No acute fracture. 4. Scattered Tarlov's cysts. ACT 112: Negative or not required by law. The above report was generated using voice recognition software. It may contain grammatical, syntax or spelling errors. Dictated: 03/17/2024 3:27 PM Transcribed: 03/17/2024 6:06 PM Angelique [id number] DONAL_Mendel [id number] Electronically signed by: Gian Carlton M.D. 03/18/2024 10:31 AM Abdomen/Pelvis CT 03/17/24 11:00 CT SCAN OF THE ABDOMEN AND PELVIS WITH IV CONTRAST CLINICAL HISTORY: Nausea and vomiting. History of Crohn's disease. COMPARISON STUDY: Abdominal CT scans dated 05/06/2023 and 09/05/2022. TECHNIQUE: Following the IV administration of 119 cc of Optiray 300, CT scan of the abdomen and pelvis is performed from the lung bases to the proximal femora. Images are reviewed in the axial, sagittal, and coronal planes. IV contrast was administered without complication. A dose lowering technique was utilized adhering to the principles of ALARA. The examination is degraded by large body habitus, and by streak artifact in the body wall abutting the CT gantry. CT DOSE: 1736.66 mGy.cm FINDINGS: Lung bases: The heart is top normal in size and without pericardial effusion. There are coronary artery calcifications. There are trace pleural effusions with dependent atelectasis. Liver: The contrast-enhanced liver is enlarged, measuring 19.2 cm in length. The liver demonstrates diffusely diminished attenuation indicating steatosis. Nodularity of the surface contour indicates morphologic changes of cirrhosis. There is no intrahepatic biliary ductal dilatation. The hepatic veins and portal veins are patent. Gallbladder: Surgically absent noting clips in the gallbladder fossa. Spleen: Normal in size and attenuation. There are calcified splenic granulomas. Pancreas: Unremarkable. Adrenal glands: Unremarkable. Kidneys: The contrast enhanced kidneys demonstrate cortical atrophy and are without hydronephrosis. The kidneys enhance symmetrically. A 2 cm cortical hypodensity in the interpolar left kidney likely represents a cyst but cannot definitively characterized due to severe streak artifact. Abdominal vasculature: The abdominal aorta is normal in course and caliber noting moderate atherosclerotic calcification. Stomach and bowel: There is a small hiatal hernia. Postoperative change is noted in the stomach. There is postoperative change from subtotal colectomy and right lower quadrant ileostomy. A peristomal hernia contains nonobstructed small bowel loops. There is no bowel obstruction. A rectal stump is seen in the pelvis. Peritoneum: There is no intraperitoneal free air or abdominal ascites. There is a fat-containing umbilical hernia. A midline surgical scar is noted. Lymphadenopathy: None. Pelvic viscera: The bladder, uterus, and adnexa are normal as visualized. Skeletal structures: The skeletal structures are osteopenic. There is moderate lumbosacral spondylosis. No lytic or blastic lesions are seen. IMPRESSION: 1. No acute infectious or inflammatory findings are identified in the abdomen or pelvis. 2. There is postoperative change from subtotal colectomy and right lower quadrant ileostomy. No bowel obstruction is identified. 3. A parastomal hernia contains nonobstructed small bowel loops. 4. The liver is enlarged, steatotic, and shows morphologic changes of cirrhosis. 5. Trace pleural effusions. 6. Additional findings as above. ACT 112: Negative or not required by law. Electronically signed by: Aramis Arceo M.D. 03/17/2024 7:17 PM Thoracic Spine MRI 03/18/24 11:27 MRI OF THE THORACIC SPINE WITHOUT IV CONTRAST CLINICAL HISTORY: Generalized weakness. Follow-up abnormal CT scan. COMPARISON STUDY: CT of the thoracic spine dated 12/24/2023. TECHNIQUE: MRI of the thoracic spine is performed utilizing various T1 and T2- weighted sequences in the axial and sagittal planes. IV contrast was not administered for this examination. The examination is modestly degraded by motion artifact FINDINGS: Marrow signal intensity is heterogeneous. Vertebral body height and alignment are maintained throughout the thoracic spine. There is mild kyphoscoliosis. Anterior and lateral marginal osteophytes are seen throughout. There is no MRI evidence of acute fracture. The spinous processes appear intact. No destructive bony lesion is seen. Disc desiccation and loss of height is seen throughout the thoracic spine. There are tiny posterior disc bulges at T1-T2, T2-T3, and T3-T4. There is no MRI evidence of large disc herniation. Again seen is a large and densely calcified extra-axial lesion within the left aspect of the spinal canal,, extending from T5 to T7. This measures approximately 5 x 2 x 3.5 cm and fills/extends through the left T6-T7 neural foramen. This lesion severely effaces the thecal sac, with marked rightward deviation of the thoracic cord. This is best seen on mid axial image #11 of 30. No cord edema is seen. There is adjacent bony remodeling indicating chronicity. The central canal is otherwise patent throughout the thoracic region. The conus medullaris terminates at the level of L2. Facet arthropathy contributes to moderate right neuroforaminal stenosis at T9-T10. There is fatty atrophy of the paraspinous musculature. No pleural effusion is seen. IMPRESSION: 1. Again seen is a large calcified extra-axial lesion within the thoracic spinal canal as detailed above. The appearance strongly favors a meningioma, or less likely a calcified nerve sheath tumor. 2. Bony remodeling indicates chronicity. 3. There are severe central canal stenosis related to this lesion with mass effect on the thoracic spinal cord, which is displaced to the right. 4. There is no MRI evidence of cord edema. 5. The lesion also extends through and completely effaces the left T6-T7 neural foramen. Dictated: 03/18/2024 12:55 PM Transcribed: 03/18/2024 1:13 PM Rufino [id number] DONAL_[email or web address] Electronically signed by: Aramis Arceo M.D. 03/18/2024 1:47 PM PG Care Time/CCT Total # of Minutes Spent Total Time Spent with Patient: Total time spent is greater than 50% in coordination of care (as documented) at patient's floor/unit and/or counseling patient: Coding Level of Care Code 56293 SUB INP/OBS CARE 3/50MIN Diagnoses CVA (cerebral vascular accident) I63.[address] Z93.2 Orthostasis I95.1 CHF (congestive heart failure) I50.9 Heart failure chronicity: acute Heart failure type: unspecified Diabetes mellitus, type 2 E11.9 Hypomagnesemia E83.42 Vertigo R42 Morbid obesity E66.01 Carotid stenosis I65.29 (4) CHF (congestive heart failure) Heart failure chronicity: acute Heart failure type: unspecified Qualified Code(s): I50.9 - Heart failure, unspecified
--- NOTE | 2024-03-18 10:32 | Magnetic Resonance Report ---
MR lumbar spine wo con CLINICAL HISTORY: 78 years-old Female with falls/back/hip pain/leg numbness/tingling, meningi. COMPARISON: CT abdomen and pelvis of same day and also 09/05/2022. TECHNIQUE: Multiplanar, multi sequence MRI of the lumbar spine was performed without intravenous cont rast. FINDINGS: Conus medullaris terminates at L2. Normal signal within the imaged thoracic spinal cord. The study is mildly motion degraded. There is no acute fracture, subluxation, endplate erosion or significant bon e marrow edema. Numerous scattered Tarlov's cysts measure up to 1.9 cm at S2-S3 and measure up to zia roximately 1.6 cm at the T12-L1 level. The imaged intra-abdominal and paraspinal structures demonstra te no acute abnormality. Moderate to marked atrophy of the paraspinal musculature. Degenerative parti al bony fusion of the lower thoracic spine. T12-L1: Moderate intervertebral disc space narrowing with degenerative partial bony fusion anteriorl y. Moderate facet arthrosis. Bilateral Tarlov cysts. No central canal or foraminal narrowing. L1-L2: Moderate intervertebral disc space narrowing with bridging osteophytosis and disc osteophyte complex most pronounced anteriorly. Ligamentum flavum thickening with moderate facet arthrosis. There is flattening of the ventral thecal sac without significant central canal stenosis. Moderate right f oraminal narrowing. The left neural foramen is patent. L2-L3: Severe intervertebral disc space narrowing with circumferential disc osteophyte complex. Liga mentum flavum thickening with advanced facet arthrosis. Mild to moderate central canal stenosis with AP dimension of the thecal sac measuring 8 mm. Mild to moderate narrowing of the right lateral recess . Moderate right with mild left foraminal narrowing. L3-L4: Moderate to severe intervertebral disc space narrowing. Moderate spondylotic spurring with sm all circumferential annular disc bulge. Ligamentum flavum thickening with advanced facet arthrosis. M oderate right with severe left lateral recess stenosis. Mild triangular central canal stenosis. Mild right with moderate left foraminal narrowing. L4-L5: Moderate intervertebral disc space narrowing and spondylotic spurring with circumferential di sc osteophyte complex. Ligamentum flavum thickening with advanced facet arthrosis and trace facet eff usions. Mild triangular central canal stenosis with at least moderate narrowing of the lateral recess es, left greater than right. Mild to moderate bilateral foraminal narrowing. L5-S1: Moderate intervertebral disc space narrowing and spondylotic spurring with circumferential di sc osteophyte complex, eccentric to the left neural foramen and far left lateral space. Ligamentum fl avum thickening with advanced facet arthrosis and trace facet effusions. Central canal is patent. The re is at least mild narrowing of the lateral recesses. Mild to moderate right with mild left foramina l narrowing. IMPRESSION: 1. Discogenic degeneration with spondylotic spurring and advanced facet arthrosis as above resulting in multilevel neural foraminal narrowing. 2. No high-grade central canal stenosis. 3. No acute fracture. 4. Scattered Tarlov's cysts. ACT 112: Negative or not required by law. The above report was generated using voice recognition software. It may contain grammatical, syntax o r spelling errors. Dictated: 03/17/2024 3:27 PM Transcribed: 03/17/2024 6:06 PM Angelique [id number] DONAL_Mendel [id number] Electronically signed by: Gian Carlton M.D. 03/18/2024 10:31 AM
--- NOTE | 2024-03-18 13:48 | Magnetic Resonance Report ---
MRI OF THE THORACIC SPINE WITHOUT IV CONTRAST CLINICAL HISTORY: Generalized weakness. Follow-up abnormal CT scan. COMPARISON STUDY: CT of the thoracic spine dated 12/24/2023. TECHNIQUE: MRI of the thoracic spine is performed utilizing various T1 and T2-weighted sequences in [facility] axial and sagittal planes. IV contrast was not administered for this examination. The examination is modestly degraded by motion artifact FINDINGS: Marrow signal intensity is heterogeneous. Vertebral body height and alignment are maintaine d throughout the thoracic spine. There is mild kyphoscoliosis. Anterior and lateral marginal osteophy fadi are seen throughout. There is no MRI evidence of acute fracture. The spinous processes appear int act. No destructive bony lesion is seen. Disc desiccation and loss of height is seen throughout the t horacic spine. There are tiny posterior disc bulges at T1-T2, T2-T3, and T3-T4. There is no MRI evide nce of large disc herniation. Again seen is a large and densely calcified extra-axial lesion within [facility] left aspect of the spinal canal,, extending from T5 to T7. This measures approximately 5 x 2 x 3.5 cm and fills/extends through the left T6-T7 neural foramen. This lesion severely effaces the thecal sac, with marked rightward deviation of the thoracic cord. This is best seen on mid axial image #11 o f 30. No cord edema is seen. There is adjacent bony remodeling indicating chronicity. The central can al is otherwise patent throughout the thoracic region. The conus medullaris terminates at the level o f L2. Facet arthropathy contributes to moderate right neuroforaminal stenosis at T9-T10. There is fat ty atrophy of the paraspinous musculature. No pleural effusion is seen. IMPRESSION: 1. Again seen is a large calcified extra-axial lesion within the thoracic spinal canal as detailed ab ove. The appearance strongly favors a meningioma, or less likely a calcified nerve sheath tumor. 2. Bony remodeling indicates chronicity. 3. There are severe central canal stenosis related to this lesion with mass effect on the thoracic sp inal cord, which is displaced to the right. 4. There is no MRI evidence of cord edema. 5. The lesion also extends through and completely effaces the left T6-T7 neural foramen. Dictated: 03/18/2024 12:55 PM Transcribed: 03/18/2024 1:13 PM Rufino [id number] DONAL_Caleb Electronically signed by: Aramis Arceo M.D. 03/18/2024 1:47 PM
--- NOTE | 2024-03-19 08:18 | Hospitalist Progress Note ---
Date of Service March 19, 2024 Assessment & Plan (1) CVA (cerebral vascular accident): Plan: Presyncopal episode on the evening of 03/05, then dizziness/nausea/vomiting on 03/06 Hx of vertigo; patient reports this feels prior to similar episodes; not currently on outpatient medications Head CTA revealed no acute intracranial abnormalities Brain MRI w/wo revealed an acute v. subacute lacunar infarct in the corpus callosum Neck CTA revealed 80% stenosis within the proximal right ICA and 90% stenosis within the left ICA Vascular surgery consulted, as this is a symptomatic stroke (on Eliquis) in the setting of severe stenosis - agree could benefit from surgical management, but not acutely - follow up outpatient - will need establish with outpatient cardiology/clearance - discussed with PA on 03/14 as family was really hoping to have procedure done inpatient, but procedure is elective and would have to be done outpatient Neurology consulted * - Continue Elqiuis. Add ASA 81mg * - Continue pravastatin - LDL goal less than 70 * - Follow up outpatient for concerns for peripheral neuropathy * - Vitamin B1 level <6 - empiric PO treatment started while awaiting results, started on IV therapy 03/13 * - vitamin b12 level: 564, no supplementation needed * - discussed case with Dr. Chowdary 03/11, continue midodrine and trial compression stockings (pt unable to comfortable wear the sizes we have) * A1c: 6.7, defer changes to CVA guideline directed therapy to PCP Continue aspirin 81 mg daily (famotidine scheduled at this causes pt heartburn) Echocardiogram: EF 55-60%, no regional wall motion abnormalities, mild pulmonary HTN. no inta-atrial shunt PT/OT - may need rehab, has refused multiple therapy sessions due to not feeling well 03/15 Nausea/dry heaving this morning, mucus appearance, no blood. Pepcid IVP x 1, scheduling PO BID while on ASA/eliquis as was getting pepcid in the evening as aspirin in the day. Of note, patient does have hx gastric bypass surgery in the past. If any concerns for bleeding would switch to Plavix over aspirin but ok'd by neuro to continue either or Phenergan x 1 ordered for nausea w/ reported improvement Check KUB for completeness Making meclizine PRN, had been getting scheduled and will monitor for prn dosing to prevent drowsiness/memory impairment given admitted fro acute/subacute CVA on eliquis for recent DVT/PE earlier this year. ?Dysautonomia from her underlying DM/peripheral neuropathy? ?nausea w/ standing from her flagyl Prior admit when I had her in November rec neuro outpt f/u for nonemergent neuro/calcified lesion. Of note, did have cirrhotic liver morphology as well as calcified lesion thoracic spine. Was on torsemide 2-3x/week, weights during admission in 150-160kg, presently 135-145kg and do not suspect volume overloaded at present. TSH wnl 0.415 That admission does note dumbbell shaped lesion T6-T7 level extending outward from thecal sac and iatrogenic change vs atypical appearance of nerve sheath tumor or meningioma reported. ?contributing to current presentation when standing. Will message Neuro for discussion/consider contacting Dr Schroeder for review prior imaging but hold off acute imaging for now -- per neuro, "can asses this issue further as outpatient, could get MRI T-spine w/wo to better asses, prob not urgent issue though" Had supervising provider also review chart/imaging and did not feel needing any acute imaging at this time Continue IV thiamine replacement for B1 <6 (had been given PO empiric supplementation prior to IV therapy) 03/16 - better since stopping meclizine but hadn't been up much. meclizine made prn, pepcid added for hernia/reflux/nausea w/ improvement Discussed w/ daughter Sherrie and also suspect her chronic PO Flagyl contributing to her nausea symptoms and she mentioned GI f/u and possible consideration for infusions but they never followed up. Plan to reach out to [facility] in AM w/ navigator for discussion. ?remicade. 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 Also discussed avoiding AILIN meclizine but can use if needed 03/17- some nausea following flagyl use.CTAP negaitve for acute infectious process, no bowel obstruction. Mag low/replacement ordered. some dizziness w/ standing but also reporting radicular symptoms on her right hip/leg prompting MRI back given ongoing issue 03/18 APPEARS BETTER TODAY Eliquis/ASA continued, fecal occult NEGATIVE Midodrine for BP support which has been stable, remains off diuretics NO further scheduled or prn meclizine utilized. Phenergan for nausea over zofran as needed IV thiamine replacement for <6 can convert to PO tomorrow. B12 replacement as well Discussed ongoing nausea and symptoms of her peripheral neuropathy/vertigo/nausea/etc/etc likely worsened by her chronic cipro/flagyl use CTAP negative for acute infectious process and opting to hold further abx for now and monitor. Did obtain MRI lumbar/thoracic for further eval: MRI thoracic spine: 1. Again seen is a large calcified extra-axial lesion within the thoracic spinal canal as detailed above. The appearance strongly favors a meningioma, or less likely a calcified nerve sheath tumor. 2. Bony remodeling indicates chronicity. 3. There are severe central canal stenosis related to this lesion with mass e ffect on the thoracic spinal cord, which is displaced to the right. 4. There is no MRI evidence of cord edema. 5. The lesion also extends through and completely effaces the left T6-T7 neural foramen. Reviewed by Dr Schroeder, patient will need nonemergent neurosurgery eval, can be arranged outpatient given likely chronic nature. Discussed w/ daughter and should have GI f/u for discussions about remicade vs other as likely significant side effects, daina neuropathy likely worsened by FLQ Labs appearing stable, afebrile PT/OT to see today and will apply for auth for [facility]. 03/19 continues on eliquis/asa, hgbs have been stable and fecal occult negative. pepcid bid for gi proph/hernia and nausea/vomiting. bp appearing quite stable on midordrine as scheduled, will continue remains OFF the cipro/flagyl, as above suspect significant side effects from halfway use, especially w/ her neuropathy needing neurospine f/u, vascular/cards, cm to assist in arranging at [facility] will see if [facility] able to accept today if symptoms stable/check orthostatics (2) Ileostomy in place: Plan: Ostomy care QS Does have hx cirrhosis/prior to have followed by Dr Bonilla/chioma and did not have any abdominal ascites for tap last admission but was on torsemide, suspected to have been needing to be taking 2-3x/wk) cdfiff negative fecal occult ordered, pepcid BID for mod/large hiatal hernia and will continue phenergan for antiemetics ctap for eval WITHOUT acute infectious process, notable hepatic steatosis/cirrhosis (?from meds) SUSPECT CIPRO/FLAGYL making a lot of her symptoms worse --> side effects for Cipro: arthralgias, P[employer] M[employer] effects, hepatotoxicity, peripheral neuropathy, tendinopathy. Flagyl: peripheral neuropathy, ataxia, confusion, dysarthria, encephalopathy, vertigo DISCUSSED AND WILL HOLD FURTHER CIPRO/FLAGYL, not benign abx as was told to daughter when asked about risks for halfway use Waiting to hear back from [facility] but will need f/u at discharge. (3) Orthostasis: Plan: Cortisol 14, no concerns for adrenal insuff trialed compression stockings, did not fit SR/PVC and PACs on telemetry Prior started on metoprolol, then switched to coreg and then eventual disctoninued holding off BB given her prior hypotension, outpt cards f/u ECHO during November admission w/ EF 50-55% and was to be discharged on torsemide 10mg PO daily at that time, not currently getting (more for suspected cirrhosis). Repeat ECHO since that time (dx w/ PE/DVTs) w/ improvement in EF 55- 60% ECHO 03/08 w/ similar findings, moderate concentric LVF. mild pulm HTN, no obvious shunt Continues on midodrine, increased from prior to 7.5mg TID and remaining stable. Orthostatic VS in f/u (4) CHF (congestive heart failure): Plan: Chronic HFpEF Last echo revealed LVEF at 60 to 65% Not currently taking torsemide; will hold potassium supplementation Echo as above , BNP slightly worse but difficult body habitus but without significant pitting edema/weights down and holding off diuretics for now given above (5) Diabetes mellitus, type 2: Plan: Hgb a1c: 6.7 SSI; with target BSG range 110-140mg/dL, CF 30, carb ratio 10 BSG ACHS Patient is not on guideline DM therapy to also benefit CVA risk, however with overall well controlled diabetes at this time, will defer change in regiment to PCP. (6) Hypomagnesemia: Plan: Resolved, downgraded off telemetry Mag 1.6 on check, IV replacement ordered and wnl on repeat 1.9 but will monitor. Holding further abx (7) Vertigo: Plan: Outpt vascular f/u once cardiac clearance suspect combination CVA, deconditioning, medication related as above Meclizine 12.5 mg p.o. q8h scheduled --> CHANGED TO PRN to prevent increased side effects from such and appears improved. Monitor w/ activity (8) Morbid obesity: Plan: Morbid obesity with BMI 51.1 s/p gastric bypass in the past (9) Carotid stenosis: Plan: as above, needs outpt f/u continue asa/eliquis Plan VTE PPx:Eliquis/ASA as above Plan: Remains on eliquis/ASA for CVA, thiamine/B12 supplementation HOLDING further cipro/flagyl d/t adverse side effects Meclizine available prn, phenergan for nausea PT/OT to repeat evals/CM applying for auth and pending status possible dc over the weekend Updated daughter Sherrie by phone this afternoon 03/18 At [facility], needs f/u vascular (carotid stenosis), cardiology, GI (for chrons/fistula disease) as well as neurosurgery for MRI findings as above Admission and Anticipated Discharge Date Admission Date: March 09, 2024 Subjective Evaluated this morning, resting in bed, no further nausea/vomiting. Has not yet been out of bed but discussed [facility] w/ bed today. WIll have nursing obtain orthostatic VS and see how she is with standing but tatiana plan for dc if stable and needs outpt f/u. Ostomy w/ softened stool, needing emptied. GOod appetite. No CP/SOB. Ongoing numbness in her R leg, worse in the foot and discussed could be from side effects from her FLQ and will need f/u neuro outpt EMG testing but suspect from meds and her back which all are outpatient follow up. Questions/concerns addressed at this time. Results & Data Results & Data Vital Signs (Past 12 Hours) Vital Signs Temp Pulse Resp BP BP Pulse Ox O2 Del Method 03/19/24 07:41 36.7 C 86 16 120/75 94 Room Air 03/18/24 21:20 36.6 C 73 14 113/72 96 Room Air PG Care Time/CCT Total # of Minutes Spent Total Time Spent with Patient: Total time spent is greater than 50% in coordination of care (as documented) at patient's floor/unit and/or counseling patient: Coding Diagnoses CVA (cerebral vascular accident) I63.[address] Z93.2 Orthostasis I95.1 CHF (congestive heart failure) I50.9 Heart failure chronicity: acute Heart failure type: unspecified Diabetes mellitus, type 2 E11.9 Hypomagnesemia E83.42 Vertigo R42 Morbid obesity E66.01 Carotid stenosis I65.29 (4) CHF (congestive heart failure) Heart failure chronicity: acute Heart failure type: unspecified Qualified Code(s): I50.9 - Heart failure, unspecified
--- NOTE | 2024-03-19 11:46 | Discharge Summary ---
Date of Service March 19, 2024 Admission HPI Per Admitting Provider Symone is a 78-year-old female with PMH of Crohn's disease s/p total proctocolectomy, colostomy status, T2DM, CESAR, GERD, cirrhosis, CHF, and DVT (on Eliquis). She presented via EMS for nausea, vomiting, and dizziness that started the evening of 03/06. Patient ambulates with a walker at baseline. She lives in independent living at [facility]. She reports that she had a presyncopal episode on Thursday night 03/05, when she was bring taking for a shower. She then developed nausea/dizziness/dry heaves on Thursday afternoon. She does note that she has a history of vertigo, and that she has had nausea/vomiting with vertigo in the past. However, this nausea\vomiting kept her up all night. No recent falls, injuries to the head or neck, or trauma. Patient did not take any additional medications for the dizziness or vomiting. She does not currently have any medications for vertigo. Patient is unsure if the room was spinning, or that if she just felt dizzy whenever she stood. She does note that she has orthostasis, which has been on going issue; takes midodrine. She did not take any of her regular morning medications; no recent change in medications. Patient reports that she ate a cheese omelette and s ausage on Thursday morning for breakfast, and has not had anything unique to eat, or any recent changes in diet. No sick contacts. Patient is SpO2 93% on RA; vitals stable at time of admission. ED course: NSS 1000 mL IV Zofran 4 mg IV Meclizine 25 mg p.o. ROS: Patient endorses dizziness with standing, hand numbness/tingling (which is new), left-hip pain (ongoing), nausea, dry heaves/vomiting last night, and chronic neuropathy in the feet. Patient denies fever, chills, night-sweats, body aches, headaches, change in vision, facial droop, ear pressure/pain, neck pain/stiffness, chest pain, SOB, chest palpitations, cough, pleuritic CP, abdominal pain, urinary s/s, burning with urination, or blood in colostomy bag or urine. Admission Exam Per Admitting Provider General: no acute distress; non-toxic appearing; well-nourished; cooperative; 98% SpO2 on RA HEENT: normocephalic, atraumatic; no scleral icterus; PERRLA w/ EOMs intact; moist mucus membrane; patient demonstrates ability to wiggle tongue bilaterally; cerumen in the left ear canal; cerumen in the right ear canal, however able to visualize pearly brown TM; vision and hearing grossly intact Neck: supple; no lymphadenopathy; trachea midline; no carotid bruits appreciated; patient is able to shrug shoulders and rotate neck against resistance without pain or dizziness Skin: warm, dry without signs of tenting; no cyanosis; no rashes, bruising, lesions, or erythema noted CV: chest wall NTP; irregularly irregular rhythm; S1/S2 normal; no murmurs/rubs/gallops; pulses intact and symmetric at radial, DP, and PT Lungs: no acute respiratory distress; symmetrical chest wall expansion; clear breath sounds across all lung shultz w/o adventitious sounds; no wheezing ABD: Soft, NTP; BS present; no rebound/guarding; distention secondary to body habitus; colostomy in place MSK: no tics or fasciculations; nonpitting edema noted in the LEs b/l, nonerythematous Neuro: A&Ox3; normal mood and affect; fluent speech; no facial droop; no focal deficits; sensation intact and symmetric in upper extremities, but notes diminished / no sensation in lower extremities below the knee bilaterally Principal Diagnosis Acute/subacute CVA, carotid stenosis Discharge Exam General: 78yo female sitting in bed, appears improved, NAD HEENT: head atraumatic, normocephalic, thick neck, trachea midline+carotid bruit Resp: even/unlabored, slightly diminished in the bases, on room air CV: RRR, +systolic murmur, no pitting edema but chronic LE edema, calves nontender, pulses palpable GI: +BS, soft, nontender, ostomy RLQ soft/brown stool in bag : purewick w/ slightly concentrated urine MSK/Neuro: generalized weakness but answering questions appropriately, no slurred speech/facial droop, b/l neuropathy but worse on the R, dorsiflexion/plantar flexion intact. baseline OA b/l hips, worse on the right Psych: AOx3, cooperative with exam Discharge Data Allergies Allergy/AdvReac Type Severity Reaction Status Date / Time red dye Allergy Severe Anaphylaxis Verified 03/07/24 12:38 Consultations 03/07/24 12:15 ED Decision to Admit Stat 03/07/24 20:58 Consult Neurology Routine 03/07/24 21:03 Consult Vascular Surgery Routine 03/16/24 07:51 Consult Cardiology Routine Ordered Studies Chest X-Ray 03/07/24 08:45 XR chest 1V portable HISTORY: Chest pain, nonspecific COMPARISON: Chest 02/13/2024. FINDINGS: The cardiac silhouette remains mildly enlarged. A few bibasilar linear densities favor subsegmental atelectasis are scarring. This is similar to the prior study. No pneumothorax. No pleural effusions. No new focal lung conso lidations to suggest a pneumonia. No evidence for pulmonary edema. IMPRESSION: No significant change compared to the prior study. No acute process. ACT 112: Negative or not required by law. Electronically signed by: Caleb Simmons M.D. 03/07/2024 9:43 AM Head CTA 03/07/24 08:45 CT angio head wo/w CLINICAL HISTORY: 78 years-old Female with dizzy. Acute dizziness COMPARISON STUDY: CT neck of same day, DARCIE 02/13/2024 TECHNIQUE: Unenhanced axial CT scan of the brain is performed. Subsequently, following the IV administration of 118 cc of Optiray, CT angiogram of the brain was performed from the skull base to the vertex. Images are reviewed in the axial, sagittal, and coronal planes. 3-D MIPS images are created and assessed. IV contrast was administered without complication. All measurements were obtained according to NASCET criteria. A dose lowering technique was utilized adhering to the principles of ALARA. FINDINGS: CT BRAIN: There is no acute intracranial hemorrhage, midline shift, hydrocephalus, intracranial mass, territorial ischemia or abnormal extra-axial collections. Involutional changes with chronic microvascular ischemic disease. Coarse calcifications of the falx cerebri redemonstrated. No abnormal intra-axial or extra-axial enhancement. Mastoid air cells and middle ear cavities are clear. No calvarial fracture. Paranasal sinuses are clear. CT ANGIOGRAM OF THE BRAIN: The imaged bilateral internal carotid arteries are patent. The bilateral anterior and middle cerebral arteries are also patent. The vertebrobasilar system and posterior cerebral arteries are widely patent. There is no aneurysm, high-grade stenosis, or proximal branch occlusion identified. Dural sinuses appear patent. IMPRESSION: 1. No acute intracranial abnormality. 2. Unremarkable CTA of the head. ACT 112: Negative or not required by law. The above report was generated using voice recognition software. It may contain grammatical, syntax or spelling errors. Electronically signed by: Gian Carlton M.D. 03/07/2024 12:10 PM Neck CTA 03/07/24 11:07 NECK CTA HISTORY: ? dizzy TECHNIQUE: Multiaxial CT images of the neck were performed following the intravenous administration of contrast to evaluate the major cervical vessels. 3D/MIP images were also obtained. Sagittal and coronal reformats were reviewed. All measurements were calculated based on NASCET criteria. A dose lowering technique was utilized adhering to the principles of ALARA. COMPARISON STUDY: Cervical spine CT 02/13/2024. FINDINGS: The visualized aortic arch is normal in caliber. There is up to 60% stenosis within the proximal left subclavian artery due to the calcified plaque. There is 50% stenosis within the proximal right subclavian artery due to the calcified plaque. No significant stenosis, occlusion, or dissection within the bilateral vertebral arteries. No significant stenosis or occlusion within the bilateral common carotid arteries. There is severe calcified plaque within the bilateral carotid bifurcations and proximal internal carotid arteries. This results in up to 80% stenosis within the proximal right internal carotid artery best seen on image 234. There is high-grade/critical stenosis of greater than 90% within the proximal left internal carotid artery near the takeoff due to the extensive calcified plaque. The mid to distal bilateral internal carotid arteries are widely patent. IMPRESSION: 1. Severe calcified plaque within the bilateral carotid bifurcations and pr oximal internal carotid arteries. This results in up to 80% stenosis within the proximal right internal carotid artery and high-grade/critical stenosis of greater than 90% within the proximal left internal carotid artery. 2. The bilateral vertebral arteries are patent. 3. Mild stenosis within the proximal bilateral subclavian arteries. ACT 112: Negative or not required by law. Electronically signed by: Caleb Simmons M.D. 03/07/2024 12:02 PM Brain MRI 03/07/24 13:35 MR brain wo/w con HISTORY: 78 years-old Female Nausea/vomiting, dizziness acute dizziness with nausea and vomiting COMPARISON: CTA head of same day TECHNIQUE: Multiplanar multisequence MRI of the brain was obtained with and without IV contrast. FINDINGS: 7 mm focus of increased diffusion-weighted signal involves the m of the corpus callosum on image 13 series 9 with intermediate signal on ADC map and mildly increased T2/STIR signal. No acute or subacute territorial infarct. Midline structures are unremarkable with partially empty sella. Degenerative changes of the cervical spine. No acute intracranial hemorrhage, midline shift, abnormal extra-axial collection, hydrocephalus or intra-axial mass. Involutional changes with [id number] T2/FLAIR hyperintense foci throughout the white matter. No abnormal enhancement. Cerebral venous sinuses and major arterial flow voids appear patent. Skull, orbits and soft tissues are unremarkable. Mastoid air cells and paranasal sinuses appear clear. IMPRESSION: 1. Subcentimeter acute versus subacute lacunar infarct is noted within the splenium of the corpus callosum. 2. Involutional changes with chronic microvascular ischemic disease. 3. No abnormal enhancement. ACT 112: Negative or not required by law. The above report was generated using voice recognition software. It may contain grammatical, syntax or spelling errors. Electronically signed by: Gian Carlton M.D. 03/07/2024 7:22 PM KUB X-Ray 03/15/24 13:07 KUB CLINICAL HISTORY: Nausea and vomiting. FINDINGS: 5 AP, portable, supine abdominal radiographs are correlated with abdominal CT dated 05/06/2023. Cholecystectomy clips are seen in the right upper quadrant. Numerous surgical clips project over the pelvis. There is no radiographic evidence of high-grade bowel obstruction. An ostomy projects over the right lower quadrant. No evidence of intraperitoneal free air is seen on these supine images. There are no abnormal abdominal calcifications. The skeletal structures are osteopenic and appear intact. Advanced spondylotic change is seen in the spine. Arthritic change is noted in the shoulders. IMPRESSION: There is no radiographic evidence of high-grade bowel obstruction. Electronically signed by: Aramis Arceo M.D. 03/15/2024 7:02 PM Lumbar Spine MRI 03/17/24 08:44 MR lumbar spine wo con CLINICAL HISTORY: 78 years-old Female with falls/back/hip pain/leg nu mbness/tingling, meningi. COMPARISON: CT abdomen and pelvis of same day and also 09/05/2022. TECHNIQUE: Multiplanar, multi sequence MRI of the lumbar spine was performed without intravenous contrast. FINDINGS: Conus medullaris terminates at L2. Normal signal within the imaged thoracic spinal cord. The study is mildly motion degraded. There is no acute fracture, subluxation, endplate erosion or significant bone marrow edema. Numerous scattered Tarlov's cysts measure up to 1.9 cm at S2-S3 and measure up to approximately 1.6 cm at the T12-L1 level. The imaged intra-abdominal and paraspinal structures demonstrate no acute abnormality. Moderate to marked atrophy of the paraspinal musculature. Degenerative partial bony fusion of the lower thoracic spine. T12-L1: Moderate intervertebral disc space narrowing with degenerative partial bony fusion anteriorly. Moderate facet arthrosis. Bilateral Tarlov cysts. No central canal or foraminal narrowing. L1-L2: Moderate intervertebral disc space narrowing with bridging osteophytosis and disc osteophyte complex most pronounced anteriorly. Ligamentum flavum thickening with moderate facet arthrosis. There is flattening of the ventral t hecal sac without significant central canal stenosis. Moderate right foraminal narrowing. The left neural foramen is patent. L2-L3: Severe intervertebral disc space narrowing with circumferential disc osteophyte complex. Ligamentum flavum thickening with advanced facet arthrosis. Mild to moderate central canal stenosis with AP dimension of the thecal sac measuring 8 mm. Mild to moderate narrowing of the right lateral recess. Moderate right with mild left foraminal narrowing. L3-L4: Moderate to severe intervertebral disc space narrowing. Moderate spondylotic spurring with small circumferential annular disc bulge. Ligamentum flavum thickening with advanced facet arthrosis. Moderate right with severe left lateral recess stenosis. Mild triangular central canal stenosis. Mild right with moderate left foraminal narrowing. L4-L5: Moderate intervertebral disc space narrowing and spondylotic spurring with circumferential disc osteophyte complex. Ligamentum flavum thickening with advanced facet arthrosis and trace facet effusions. Mild triangular central canal stenosis with at least moderate narrowing of the lateral recesses, left greater than right. Mild to moderate bilateral foraminal narrowing. L5-S1: Moderate intervertebral disc space narrowing and spondylotic spurring with circumferential disc osteophyte complex, eccentric to the left neural foramen and far left lateral space. Ligamentum flavum thickening with advanced facet arthrosis and trace facet effusions. Central canal is patent. There is at least mild narrowing of the lateral recesses. Mild to moderate right with mild left foraminal narrowing. IMPRESSION: 1. Discogenic degeneration with spondylotic spurring and advanced facet arthrosis as above resulting in multilevel neural foraminal narrowing. 2. No high-grade central canal stenosis. 3. No acute fracture. 4. Scattered Tarlov's cysts. ACT 112: Negative or not required by law. The above report was generated using voice recognition software. It may contain grammatical, syntax or spelling errors. Dictated: 03/17/2024 3:27 PM Transcribed: 03/17/2024 6:06 PM Angelique [id number] [email or web address] [id number] Electronically signed by: Gian Carlton M.D. 03/18/2024 10:31 AM Abdomen/Pelvis CT 03/17/24 11:00 CT SCAN OF THE ABDOMEN AND PELVIS WITH IV CONTRAST CLINICAL HISTORY: Nausea and vomiting. History of Crohn's disease. COMPARISON STUDY: Abdominal CT scans dated 05/06/2023 and 09/05/2022. TECHNIQUE: Following the IV administration of 119 cc of Optiray 300, CT scan of the abdomen and pelvis is performed from the lung bases to the proximal femora. Images are reviewed in the axial, sagittal, and coronal planes. IV contrast was administered without complication. A dose lowering technique was utilized adhering to the principles of ALARA. The examination is degraded by large body habitus, and by streak artifact in the body wall abutting the CT gantry. CT DOSE: 1736.66 mGy.cm FINDINGS: Lung bases: The heart is top normal in size and without pericardial effusion. There are coronary artery calcifications. There are trace pleural effusions with dependent atelectasis. Liver: The contrast-enhanced liver is enlarged, measuring 19.2 cm in length. The liver demonstrates diffusely diminished attenuation indicating steatosis. Nodularity of the surface contour indicates morphologic changes of cirrhosis. There is no intrahepatic biliary ductal dilatation. The hepatic veins and portal veins are patent. Gallbladder: Surgically absent noting clips in the gallbladder fossa. Spleen: Normal in size and attenuation. There are calcified splenic granulomas. Pancreas: Unremarkable. Adrenal glands: Unremarkable. Kidneys: The contrast enhanced kidneys demonstrate cortical atrophy and are without hydronephrosis. The kidneys enhance symmetrically. A 2 cm cortical hypodensity in the interpolar left kidney likely represents a cyst but cannot definitively characterized due to severe streak artifact. Abdominal vasculature: The abdominal aorta is normal in course and caliber noting moderate atherosclerotic calcification. Stomach and bowel: There is a small hiatal hernia. Postoperative change is noted in the stomach. There is postoperative change from subtotal colectomy and right lower quadrant ileostomy. A peristomal hernia contains nonobstructed small bowel loops. There is no bowel obstruction. A rectal stump is seen in the pelvis. Peritoneum: There is no intraperitoneal free air or abdominal ascites. There is a fat-containing umbilical hernia. A midline surgical scar is noted. Lymphadenopathy: None. Pelvic viscera: The bladder, uterus, and adnexa are normal as visualized. Skeletal structures: The skeletal structures are osteopenic. There is moderate lumbosacral spondylosis. No lytic or blastic lesions are seen. IMPRESSION: 1. No acute infectious or inflammatory findings are identified in the abdomen or pelvis. 2. There is postoperative change from subtotal colectomy and right lower quadrant ileostomy. No bowel obstruction is identified. 3. A parastomal hernia contains nonobstructed small bowel loops. 4. The liver is enlarged, steatotic, and shows morphologic changes of cirrhosis. 5. Trace pleural effusions. 6. Additional findings as above. ACT 112: Negative or not required by law. Electronically signed by: Aramis Arceo M.D. 03/17/2024 7:17 PM Thoracic Spine MRI 03/18/24 11:27 MRI OF THE THORACIC SPINE WITHOUT IV CONTRAST CLINICAL HISTORY: Generalized weakness. Follow-up abnormal CT scan. COMPARISON STUDY: CT of the thoracic spine dated 12/24/2023. TECHNIQUE: MRI of the thoracic spine is performed utilizing various T1 and T2- weighted sequences in the axial and sagittal planes. IV contrast was not administered for this examination. The examination is modestly degraded by motion artifact FINDINGS: Marrow signal intensity is heterogeneous. Vertebral body height and alignment are maintained throughout the thoracic spine. There is mild kyphoscoliosis. Anterior and lateral marginal osteophytes are seen throughout. There is no MRI evidence of acute fracture. The spinous processes appear intact. No destructive bony lesion is seen. Disc desiccation and loss of height is seen throughout the thoracic spine. There are tiny posterior disc bulges at T1-T2, T2-T3, and T3-T4. There is no MRI evidence of large disc herniation. Again seen is a large and densely calcified extra-axial lesion within the left aspect of the spinal canal,, extending from T5 to T7. This measures approximately 5 x 2 x 3.5 cm and fills/extends through the left T6-T7 neural foramen. This lesion severely effaces the thecal sac, with marked rightward deviation of the thoracic cord. This is best seen on mid axial image #11 of 30. No cord edema is seen. There is adjacent bony remodeling indicating chronicity. The central canal is otherwise patent throughout the thoracic region. The conus medullaris terminates at the level of L2. Facet arthropathy contributes to moderate right neuroforaminal stenosis at T9-T10. There is fatty atrophy of the paraspinous musculature. No pleural effusion is seen. IMPRESSION: 1. Again seen is a large calcified extra-axial lesion within the thoracic spinal canal as detailed above. The appearance strongly favors a meningioma, or less likely a calcified nerve sheath tumor. 2. Bony remodeling indicates chronicity. 3. There are severe central canal stenosis related to this lesion with mass effect on the thoracic spinal cord, which is displaced to the right. 4. There is no MRI evidence of cord edema. 5. The lesion also extends through and completely effaces the left T6-T7 neural foramen. Dictated: 03/18/2024 12:55 PM Transcribed: 03/18/2024 1:13 PM Rufino [id number] [email or web address] Electronically signed by: Aramis Arceo M.D. 03/18/2024 1:47 PM ECHOCARDIOGRAM 03/08/2024 Normal left ventricular size and systolic function. EF 55-60%. No regional wall motion abnormalities. Moderate concentric left ventricular hypertrophy. Mildly dilated right ventricle with normal systolic function. Moderate biatrial dilation. No significant valvular abnormalities visualized. Mild pulmonary hypertension. Estimated RVSP 45mmHg. No obvious right to left interatrial shunt noted following agitated saline administration however image quality is suboptimal. Similar findings compared to complete transthoracic study on 12/08/2023. Hospital Course (1) CVA (cerebral vascular accident): 78yo with PMHx significant for CHF, recent DVT/PE earlier this year Chrons disease (s/p total proctocolectomy, colostomy status), DM II, CESAR, GERD, cirrhosis presented with nausea/vomiting and dizziness starting evening 4/7 at [facility] after acute stay at [facility] rehab following prior admission/discharge from [facility] 02/17 for a fall/admission for rhabdomyolysis. Saravanan chaned having pre-syncopal episode on evening of 03/05 followed by n/v/dizziness on 03/06 On admission, brain MRI showed acute vs subacute lacunar infarct within the splenium of the corpus collosum and neurology was consulted and patient had ASA 81mg added to her eliquis as taking for DVT/PE (2nd occurance, needing life long AC (?ongoing inflammation from her underlying crohn's and on chronic cipro/f lagyl for suppression -- see below, now discontinued) Neck CTA revealed 80% stenosis within the proximal right ICA and 90% stenosis within the left ICA and vascular surgery was consulted as symptomatic stroke on eliquis in setting of severe stenosis and agreed benefit from surgical management but in outpatient setting which has been arranged. Needs cardiology clearance (consulted inpatient but deferred due to not having procedure inpatient and can be arranged outpt per Dr Chang) Of note, neck CTA did mention mild stenosis within the proximal bilateral subclavian arteries which could be contributing to her UE neuropathy symptoms as well (which as b/l in nature) ECHOCARDIOGRAM -Normal left ventricular size and systolic function. EF 55-60%. No regional wall motion abnormalities. Moderate concentric left ventricular hypertrophy. Mildly dilated right ventricle with normal systolic function. Moderate biatrial dilation. No significant valvular abnormalities visualized. Mild pulmonary hy pertension. Estimated RVSP 45mmHg. No obvious right to left interatrial shunt noted following agitated saline administration however image quality is suboptimal. Similar findings compared to complete transthoracic study on 12/08/2023. Lipid panel checked, LDL 45 (goal <70), remains on pravastatin A1c 6.7 - outpt f/u B1 level was <6, thiamine IV continued while inpatient and to continue PO at discharge B12 564 Fecal occult blood NEGATIVE, continue ASA/eliquis at discharge and follow up with cardiology for clearance and will need f/u and intervention on her carotid arteries Patient with BP issues, midodrine continued but increased to 7.5mg TID and orthostatics improved We did STOP scheduled meclizine as was ordered for vertigo symptoms and was quite sedating and improved with stopping this, however then had ongoing nausea/dry heaves in afternoon several days but upon further investigation is following her oral Flagyl in the afternoon. Patient on Cipro/Flagyl chronically for fistula disease however CTAP w/o acute infectious findings and discussed with patient and daughter Sherrie given prior reports of appt in winter about infusions (confirmed w/ navigator, consideration for remicade infusions) and that her antibiotics are NOT benign and likely exacerbating a lot of her ongoing symptoms. * Cipro: arthralgias, [employer] effects, hepatotoxicity, peripheral neuropathy, tendi nopathy. * Flagyl: peripheral neuropathy, ataxia, confusion, dysarthria, encephalopathy, vertigo * MOST OF THESE SYMPTOMS PATIENT DOES SUFFER FROM AT BASELINE and discussed more HARM than benefit suspected. Will need GI f/u outpatient Patient had ongoing back/hip issues and given prior imaging, was discussed with broadcast operations manager ortho-spine for review and as below, will need outpatient follow up with neurospine for ongoing eval/intervention if patient agreeable (cannot be done at this institution). MRI Thoracic Spine: * 1. Again seen is a large calcified extra-axial lesion within the thoracic spinal canal as detailed above. The appearance strongly favors a meningioma, or less likely a calcified nerve sheath tumor. * 2. Bony remodeling indicates chronicity. * 3. There are severe central canal stenosis related to this lesion with mass effect on the thoracic spinal cord, which is displaced to the right. * 4. There is no MRI evidence of cord edema. * 5. The lesion also extends through and completely effaces the left T6-T7 neural foramen. Do suspect some of her symptoms from such but again, needing outpatient follow up and referral. Was able to stand with nursing albeit w/ some hip (R) pain) but no dizziness/lightheadedness and arrangements made for [facility] at discharge for ongoing rehabilitation. Patient to eventually back to [facility] w/ goals to move in with daughter once stable. Of note, patient IS s/p gastric bypass (again, fecal occult NEGATIVE) but if any issues with bleeding would need switch to Plavix over eliquis but stable per discussion with Dr Chowdary last week regarding any need to switch prior given hx of such. 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 --> Flagyl: peripheral neuropathy, ataxia, confusion, dysarthria, encephalopathy, vertigo DISCUSSED AND WILL HOLD FURTHER CIPRO/FLAGYL, not benign abx as was told to daughter when asked about risks for half-way use and needs GI f/u at discharge for ongoing/further discussions regarding treatment (3) Orthostasis: Cortisol 14, no concerns for adrenal insuff trialed compression stockings, did not fit SR/PVC and PACs on telemetry Prior started on metoprolol, then switched to coreg and then eventual discontinued. Given orthostatic hypotension and intolerance to medications this was held off and utilizing midodrine for BP support Repeat echo as above, outpatient f/u cardiology as above as well as vascular (4) CHF (congestive heart failure): Chronic HFpEF Last echo revealed LVEF at 60 to 65%, repeat ECHO as above. BNP elevated however w/ orthostasis and falls as above and no significant volume overload/hypoxia/shortness of breath, diuretics deferred at this time. CXR w/o congestion outpt f/u cardiology, ?hepatic congestion from early cirrhosis. GI f/u as above as well. LFTs NOT elevated (5) Diabetes mellitus, type 2: Hgb a1c: 6.7 SSI; with target BSG range 110-140mg/dL, CF 30, carb ratio 10 BSG ACHS Patient is not on guideline DM therapy to also benefit CVA risk, however with overall well controlled diabetes at this time, will defer change in regiment to PCP to prevent hypoglycemia in patient w/ high fall risk (6) Hypomagnesemia: low/replaced/resolved. monitored on repeat for stability and remained stable prior to discharge (7) Vertigo: multifactorial, see above as above, meclizine initially utilized but suspect making her more drowsy and symptoms w/ other etiologies as outlined meclizine discontinued from scheduled and made prn as discussed with patient and HAS NOT USE and had improvement w/ changes above and outpt f/u as outlined (8) Morbid obesity: Morbid obesity with BMI 51.1 s/p gastric bypass in the past, monitor for any bleeding risk and would need to switch her ASA to plavix but did message neurology last week regarding such and reported would continue eliquis/ASA for now did check fecal occult for completeness (hgb had remained stable) and this was NEGATIVE (9) Carotid stenosis: as above, continued asa/Eliquis needs outpt f/u cards/vascular as above Plan VTE PPx:Eliquis/ASA as above updated daughter Sherrie prior to dc 03/19, she has already brought patient belongings to [facility], agreeable to arrange transportation and was discharged this afternoon to [facility] in stable/improved condition over the past several days. Hopefully continuing to hold off her abx will have continued improvement in symptoms however did discuss she has a multitude of factors that have contributed to her current state. Extensive outpt f/u recommended and discussed, CM navigator to f/u on Thursday to assist w/ neurospine follow up as needed/ensure done [place] from [facility] Total Time Total Time Spent Total Time Spent (In Minutes): 90 Discharge Plan Discharge Items Patient Disposition: Transfer Inpatient Rehab Fac Reason For Visit: DIZZINESS, NAUSEA, VOMITING Discharge Diagnosis: Stroke, Dizziness Goals: You have been hospitalized for an acute medical problem. During your stay at [facility], we have made an effort to correct the problem that brought you to the hospital while keeping you as comfortable as possible. Medications were used to bring your condition under control and your discharge instructions will include directions for any medications you should take after leaving the hospital. Please make sure you see your Primary Care Provider as part of your follow up plan. Activity: As commented below Non-emergency contact: Primary Care Provider, Specialist, Savings Counselor and Neurologist Call non-emergency contact if: you have any medication questions and your pain is not controlled Follow-up/Referrals: Cuong Chowdary MD [Physician] - Roosevelt Chang MD [Physician] - Cuong Bonilla MD [Outside Practitioners] - Stan Vazquez MD [Physician] - Tanisha Reyes MD [Primary Care Provider] - Diet: Carb Consistent or DM2 and Heart Healthy Addtl Attending Provider Instructions: You have been hospitalized and found to have an acute/subacute stroke on imaging. You were already on Eliquis for history of DVT/PE and neurology was consulted and you were placed on aspirin. Stool testing has been negative for blood and your hemoglobin levels have been stable. You should continue aspirin and Eliquis at discharge. You will need follow up Dr Vazquez for vascular surgery as well as cardiology. For blood pressure, you have been continued on midodrine but increased to 7.5mg three times daily. We also put you on thiamine replacement (B1 for LOW level) and you are being continued on oral twice daily. You also had a low B12 which was replaced with IM injection and should continue oral supplementation daily. Your CIPROFLOXACIN and METRONIDAZOLE have been DISCONTINUED as discussed with you and your daughter given significant side effects and confusion/dizziness/neuropathy can be contributed by this and hopefully have some improvement off these. You need to have gastroenterology follow up to discuss possible Remicade infusions but imaging of the abdomen was without acute infectious process. Some nerve damage may be permanent from these medications, but you can have outpatient EMG/nerve testing with neurology in follow up. You had findings in your back which were likely benign meningioma but we had orthopedic spine review prior imaging and we ordered MRI for further information and I suspect your right leg symptoms are related to findings in your back and you will need follow up outpatient with neuro-spine retail asset protection specialist in [place] (or [place] if preferred). You have been set up for therapy at [facility] for acute rehab which has been arranged at [facility]. Please follow up with primary care in the next 7-10 days to monitor your status after discharge and coordination of your care. Please return to ER with any worsening symptoms. Pending Studies at Discharge: No Stand-Alone Forms: [facility], Medications to Prevent Stroke Skilled Items Patient informed of condition?: Yes DNR: Yes Discharge Level of Care: Acute rehab Communicable Disease: No Discharge Prognosis: Stable Lines: None Urinary Catheter: No Medications and DC Order Prescriptions: New midodrine 2.5 mg Tablet 7.5 mg PO TIDM 30 Days Qty: 90 0RF aspirin 81 mg Tablet,Delayed Release (Dr/Ec) 81 mg PO QAM Qty: 30 0RF thiamine HCl (vitamin B1) 100 mg Tablet 200 mg PO QAM Qty: 60 0RF Continued levothyroxine 200 mcg Tablet See Rx Instructions .ROUTE .COMPLEX Patient Comments: takes 200 mcg with 25 mcg for dose of 225 mcg Rx Instructions: Take 200mcg w/ 25mcg once every morning to equal 225mcg cyanocobalamin (vitamin B-12) [Vitamin B-12] 1,000 mcg Tablet 1,000 mcg PO QAM cholecalciferol (vitamin D3) [Vitamin D3] 50 mcg (2,000 unit) Capsule 50 mcg PO QAM levothyroxine 25 mcg Tablet See Rx Instructions .ROUTE .COMPLEX Patient Comments: takes with 200 mcg Rx Instructions: Take 25mcg w/ 200mcg once every morning to equal 225mcg Eliquis 5 mg tablet 5 mg PO BID Qty: 60 0RF metformin 500 mg Tablet 500 mg PO BID pravastatin 40 mg Tablet 40 mg PO HS acetaminophen 325 mg Tablet 650 mg PO Q4H MDD 3gm/24hr PRN (Reason: Pain) tramadol 50 mg tablet 50 mg PO Q6H PRN (Reason: Pain) Changed famotidine [Pepcid] 20 mg Tablet 20 mg PO BID Qty: 60 0RF Patient Comments: hardly uses Discontinued potassium chloride 20 mEq Tablet Extended Release 20 meq PO DAILY Qty: 30 0RF ciprofloxacin HCl 500 mg Tablet 500 mg PO BID Qty: 60 0RF Rx Instructions: LAST FILLED 01/16/24 FOR 30 DAYS metoprolol tartrate 25 mg Tablet 12.5 mg PO BID Qty: 0 0RF midodrine 5 mg tablet 5 mg PO TID metronidazole 500 mg tablet 500 mg PO Q8H Discharge Orders: Discharge Order (Routine); Ordered 03/19/24 Ordered By: Mandy Alvarado/Other Patient Handouts: Managing Type 2 Diabetes Admission Data Admit Date/Time: 03/09/24 13:04 Attending Provider: Alo Rice Admit Provider: Papi Martinez Primary Care Provider: Tanisha Reyes Other Providers: Papi Martinez; Cuong Chowdary; Stan Vazquez; Roosevelt Chang; Socorro Martinez [facility]; [facility] Supervising Physician Co-Signing Physician Notes The patient was not seen by me. The chart was reviewed. Case discussed with KINDRA Wilkinson. Agree with assessment and plan Coding Level of Care Code 92532 INP/OBS DISCH >30 MIN Diagnoses CVA (cerebral vascular accident) I63.[address] Z93.2 Orthostasis I95.1 CHF (congestive heart failure) I50.9 Heart failure chronicity: acute Heart failure type: unspecified Diabetes mellitus, type 2 E11.9 Hypomagnesemia E83.42 Vertigo R42 Morbid obesity E66.01 Carotid stenosis I65.29
== END 2024-03-19 15:45 | DRG 65 ==
LOC: ED 08:24 → EDINP 08:24 → SUATTDRO 13:59 → EDINP 14:19 → 2N 19:26 → SUATTDRO 03-09 13:04 → 3N 03-17 00:15

== ENCOUNTER 2024-06-27 06:26 | Inpatient (IN) ==
--- NOTE | 2024-06-22 14:41 | Anesthesiology Consultation ---
Date of Service June 22, 2024 Assessment & Plan (1) Encounter for pre-operative examination: Plan - check CBC with diff, BMP, coags and BSG STAT am DOS. - cardiology office visit 06/22/24 [place]: "...history of DVT/PE, type 2 diabetes, c irrhosis, Crohn's disease s/p colectomy (now with colostomy), hypothyroidism, orthostatic hypotension, CVA in February 2024, and bilateral carotid artery stenosis who presents for preoperative cardiovascular evaluation prior to left TCAR on 06/27/[address] Vazquez...asymptomatic from a cardiovascular standpoint, however, her functional status is limited due to neuropathy. She does have cardiovascular risk factors and known peripheral arterial disease. It is therefore recommended that she undergo stress testing for further risk stratification prior to surgery. Unfortunately, given the close proximity of her surgery, we will not be able to arrange stress testing prior to the surgical date. Patient prefers to not reschedule her vascular surgery in order to accommodate stress testing. Would therefore assume her to be high cardiovascular risk for surgery..." - Case discussed in detail with Dr. Ochoa who advised patient is acceptable to proceed at [facility] as scheduled. - Per upholstery trimmer on 06/14/24: No known infectious disease contacts, current infectious disease symptoms in past 10 days or COVID positive test result in the past 30 days. Chart Review Chart Review: Acceptable Risk for Surgery and Patient NOT seen in Pre Admission Testing History Surgery Operation Date: 06/27/24 08:00 Proposed Procedures p Left Transcarotid Artery Revascularization - Stan Vazquez MD Height/Weight Height: 5 ft 6.5 in Weight: 149.685 kg Allergies Allergy/AdvReac Type Severity Reaction Status Date / Time red dye Allergy Severe Anaphylaxis Verified 06/22/24 11:19 Medications Home Medications Medication Instructions Recorded Confirmed Last Taken metformin 500 mg tablet 500 mg PO BID 09/18/22 06/22/24 02/12/24 pravastatin 40 mg tablet 40 mg PO HS 09/18/22 06/22/24 02/12/24 levothyroxine 200 mcg tablet 200 mcg PO QAM 12/03/22 06/22/24 02/12/24 cholecalciferol (vitamin D3) 50 50 mcg PO QAM 02/27/23 06/22/24 02/12/24 mcg (2,000 unit) capsule (Vitamin D3) cyanocobalamin (vitamin B-12) 1,000 mcg PO QAM 02/27/23 06/22/24 02/12/24 1,000 mcg tablet (Vitamin B-12) levothyroxine 25 mcg tablet 25 mcg PO QAM 12/07/23 06/22/24 02/12/24 apixaban 5 mg tablet (Eliquis) 5 mg PO BID #60 tabs 12/09/23 06/22/24 02/12/24 acetaminophen 325 mg tablet 650 mg PO Q4H PRN Pain 03/07/24 06/22/24 Unknown aspirin 81 mg tablet,delayed 81 mg PO QAM #30 tabs 03/19/24 06/22/24 Unknown release famotidine 20 mg tablet (Pepcid) 20 mg PO BID Acid Reflux #60 tabs 03/19/24 06/22/24 03/09/23 thiamine HCl (vitamin B1) 100 mg 200 mg (2 x 100 mg) PO QAM #60 tabs 03/19/24 06/22/24 Unknown tablet Brilinta 1 tab PO UD 06/14/24 06/22/24 Unknown amoxicillin 875 mg-potassium 1 tab PO BID 06/14/24 06/22/24 Unknown clavulanate 125 mg tablet torsemide 10 mg tablet 10 mg PO DAILY 06/22/24 06/22/24 Unknown Past Medical History Medical History (Updated 06/22/24 @ 14:38 by Anna Marie Falk PA-C) 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" on antibiotic currently Carotid stenosis, bilateral CHF (congestive heart failure) Cirrhosis Depression Diabetes mellitus, type 2 on metformin daily Family history of reaction to anesthesia sister N/V Heart murmur no significant valvular pathology on 03/08/2024 echo History of CVA (cerebrovascular accident) no deficits History of DVT of lower extremity (2023) History of pulmonary embolism on Eliquis Hypothyroidism 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) use of anticoagulants eliquis Morbid obesity with BMI of 50.0-59.9, adult Osteoarthritis Pulmonary hypertension mild-03/08/2024 echo Ulcerative colitis Past Family History Family History Sister Family history of reaction to anesthesia nausea/vomiting Past Surgical History Surgical History History of appendectomy History of benign breast biopsy History of bilateral cataract extraction History of cholecystectomy History of colon resection performed about 20yrs ago d/t ulcerative colitis---has ileostomy History of colonoscopy and ileoscopy History of esophagogastroduodenoscopy (EGD) History of gastric bypass History of hernia surgery History of thyroidectomy, total d/t nodules History of tooth extraction History of total left knee replacement (TKR) History of total right knee replacement (TKR) History of wisdom tooth extraction Social History Smoking Status: Never smoker Do You Dip or Chew Tobacco: No Hx Alcohol Use: No Alcohol type: wine alcohol intake frequency: holidays/special occasions only Hx Substance Use: No substance use type: does not use Testing Electrocardiogram Date: 03/07/24 Sinus rhythm with frequent PACs vs wandering atrial pacemaker, rate 94 bpm Chest X-Ray Date: 03/07/24 *1view* No significant change compared to the prior study. No acute process. Echocardiogram Date: 03/08/24 EF 55-60% No LV regional wall motion abnormalities Moderate cLVH Mildly dilated RV Moderate biatrial dilation No significant valvular abnormalities Mild pulmonary hypertension, estimated RVSP 45 mmHg Type II diastolic dysfunction Cervical Spine Date: 02/13/24 CT 1. No acute cervical spine fracture or subluxation. Exam mildly compromised by artifact. 2. Moderate multilevel degenerative disc disease and facet arthrosis within the cervical spine. Other Testing Abdomen pelvis CT 03/09/24 1. No acute infectious or inflammatory findings are identified in the abdomen or pelvis. 2. There is postoperative change from subtotal colectomy and right lower quadrant ileostomy. No bowel obstruction is identified. 3. A parastomal hernia contains nonobstructed small bowel loops. 4. The liver is enlarged, steatotic, and shows morphologic changes of cirrhosis. 5. Trace pleural effusions. 6. Additional findings as above. Head and neck CTA 03/07/24 1. Severe calcified plaque within the bilateral carotid bifurcations and proximal internal carotid arteries. This results in up to 80% stenosis within the proximal right internal carotid artery and high-grade/critical stenosis of greater than 90% within the proximal left internal carotid artery. 2. The bilateral vertebral arteries are patent. 3. Mild stenosis within the proximal bilateral subclavian arteries. Brain MRI 03/07/24 1. Subcentimeter acute versus subacute lacunar infarct is noted within the splenium of the corpus callosum. 2. Involutional changes with chronic microvascular ischemic disease. 3. No abnormal enhancement. Chest CTA 12/07/23 1. Extensive bilateral pulmonary embolus as above. 2. There is no airspace consolidation or pleural effusion. 3. Cardiomegaly with evidence of pulmonary artery hypertension. 4. Cirrhotic liver morphology. 5. There is a 4.6 cm calcified extra-axial lesion in the left aspect of the thoracic spinal canal at T6-T7. This severely effaces the thecal sac, and could represent iatrogenic change or possibly a calcified extra-axial mass lesion such as a meningioma or nerve sheath tumor. Clinical correlation will be required. This is not an acute finding and and should be correlated with any prior outside chest imaging. Nonemergent follow up with neurology is advised. 6. Additional findings as above.
[2024-06-27] MEDS ORDERED: PHENYLEPHRINE HCL 25 MG/250 ML NSS IV ONE (06:58)
[2024-06-27] MEDS ORDERED: PROPOFOL IV EMULSION 10 MG/ML 20 ML VIAL IV ONE (07:03)
[2024-06-27] MEDS ORDERED: ROCURONIUM BROMIDE 10 MG/ML 5 ML VIAL IV ONE (07:03)
[2024-06-27] MEDS ORDERED: LIDOCAINE 2% 2 ML VIAL/AMP(20MG/ML) INFIL ONE (07:03)
[2024-06-27 07:12] LABS: Basophils # (auto) 0.06 K/uL (0.00-0.20); Basophils % (auto) 0.7 %; Eosinophils # (auto) 0.17 K/uL (0.00-0.50); Eosinophils % (auto) 2.1 %; Hematocrit (blood only) 36.2 % (37.0-47.0); Hemoglobin 11.2 g/dl (12.0-16.0); Immature Granulocytes # (auto) 0.02 K/uL (0.01-0.20); Immature Granulocytes % (auto) 0.2 %; Lymphocytes # (auto) 2.03 K/uL (1.20-3.40); Lymphocytes % (auto) 24.8 %; Mean Corpuscular Hemoglobin 27.9 pg (25.0-34.0); Mean Corpuscular Hgb Conc 30.9 g/dL (32.0-36.0); Mean Platelet Volume 10.3 fL (9.4-12.4); Monocytes # (auto) 0.75 K/uL (0.11-0.59); Monocytes % (auto) 9.2 %; Neutrophils # (auto) 5.14 K/uL (1.40-6.50); Platelet Count 283 K/uL (130-400); RDW Coefficient of Variation 14.2 % (11.5-14.5); RDW Standard Deviation 46.6 fL (36.4-46.3); Red Blood Count 4.02 M/uL (4.20-5.40); White Blood Count 8.17 K/ul (4.8-10.8)
[2024-06-27] MEDS: LACTATED RINGER'S 1,000 ML BAG IV SCH (07:22)
[2024-06-27 07:26] LABS: BUN Creatinine Ratio 32.2 (10-20); Calcium 8.9 mg/dl (8.6-10.3); Creatinine Clr Calc Pharmacy 79.6 ml/min; Est GFR (African American) 74.5 ml/min; Est GFR (Non-African American) 64.3 ml/min; Potassium 4.2 mmol/L (3.5-5.1)
[2024-06-27 07:40] LABS: INR 0.9 (0.9-1.1); Partial Thromboplastin Ratio 0.9; Partial Thromboplastin Time 25 Seconds (21-31); Prothrombin Time 10.1 Seconds (9.0-12.0)
--- NOTE | 2024-06-27 07:46 | History & Physical Report ---
Date of Service June 27, 2024 Assessment & Plan (1) Carotid stenosis: Plan: Patient admitted for a left TCAR. I have discussed the risks options and benefits of the procedure with the patient. The patient understands the risks options and benefits and agrees to the procedure. History of Present Illness Chief Complaint: Left internal carotid artery stenosis Primary Care Provider: Tanisha Reyes MD 79 yo f with multiple medical problems, including arthritis, hx of DVT/PE, liver cirrhosis, CKD, vertigo, UC s/p proctatectomy/ colectomy with colostomy, open draining sinus from surgery, GERD, hypothyroidism, CHF, DMII, admitted after severe dizziness/N/V at home and found to have carotid stenosis, seen earlier this year for same. Pt denies any prior knowledge. Review of her chart since Nov 30 indicated multiple admissions for similar sx. Admission in Nov revealed DVT/PE with R heart strain, apparently improved upon admission in January 2024, although still with slightly reduced EF. 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 States she "didn't get around to setting that up yet." She has not been consistent in her outpt care. She does not drive and relies on her daughter to drive her places. Has had chronic dizziness, sometimes associated with N/V, for many months. She has had near syncopal events and had some falls at home. Denies any lateralizing sx, amaurosis, aphasia, facial droop. Allergies Allergy/AdvReac Type Severity Reaction Status Date / Time red dye Allergy Severe Anaphylaxis Verified 06/27/24 07:01 Home Medications Medication Instructions Recorded Confirmed Type metformin 500 mg tablet 500 mg PO BID 09/18/22 06/27/24 History pravastatin 40 mg tablet 40 mg PO HS 09/18/22 06/27/24 History levothyroxine 200 mcg tablet 200 mcg PO QAM 12/03/22 06/22/24 History cholecalciferol (vitamin D3) 50 50 mcg PO QAM 02/27/23 06/27/24 History mcg (2,000 unit) capsule (Vitamin D3) cyanocobalamin (vitamin B-12) 1,000 mcg PO QAM 02/27/23 06/27/24 History 1,000 mcg tablet (Vitamin B-12) levothyroxine 25 mcg tablet 25 mcg PO QAM 12/07/23 06/27/24 History apixaban 5 mg tablet (Eliquis) 5 mg PO BID #60 tabs 12/09/23 06/27/24 Rx acetaminophen 325 mg tablet 650 mg PO Q4H PRN Pain 03/07/24 06/27/24 History aspirin 81 mg tablet,delayed 81 mg PO QAM #30 tabs 03/19/24 06/27/24 Rx release famotidine 20 mg tablet (Pepcid) 20 mg PO BID Acid Reflux #60 tabs 03/19/24 06/27/24 Rx thiamine HCl (vitamin B1) 100 mg 200 mg (2 x 100 mg) PO QAM #60 tabs 03/19/24 Rx tablet Brilinta 1 tab PO UD 06/14/24 06/27/24 History amoxicillin 875 mg-potassium 1 tab PO BID 06/14/24 06/27/24 History clavulanate 125 mg tablet torsemide 10 mg tablet 10 mg PO DAILY 06/22/24 06/27/24 History Past Med/Surg History Problem List Carotid stenosis Morbid obesity Carotid stenosis, bilateral Postural dizziness 03/08/24 Hypomagnesemia 03/07/24 CVA (cerebral vascular accident) Orthostasis 03/07/24 Vertigo 03/07/24 Vomiting (Acute) 03/07/24 Dizziness (Acute) 03/07/24 Tinea unguium Orthostatic syncope 02/16/24 Mass of spine 02/15/24 Acute hip pain (Acute) 02/14/24 Elevated lactic acid level (Acute) 02/14/24 Fall (Acute) 02/14/24 Elevated troponin (Acute) 02/14/24 Rhabdomyolysis (Acute) 02/14/24 VENESSA (acute kidney injury) (Acute) 12/22/23 Shortness of breath (Acute) 12/22/23 Ambulatory dysfunction (Acute) Generalized weakness (Acute) 12/22/23 Urge incontinence DVT of leg (deep venous thrombosis) 12/13/23 Abnormal finding on imaging Elevated troponin I level (Acute) 12/07/23 Lightheadedness 12/07/23 Cirrhosis Bilateral lower extremity edema (Acute) 12/07/23 RIOS (dyspnea on exertion) (Acute) 12/07/23 Medication monitoring encounter Arthritis Encounter for pre-operative examination Medical History Pulmonary hypertension mild-03/08/2024 echo History of DVT of lower extremity (2023) Carotid stenosis, bilateral History of CVA (cerebrovascular accident) no deficits Family history of reaction to anesthesia sister N/V residential (current) use of anticoagulants eliquis Cirrhosis Depression CHF (congestive heart failure) 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" on antibiotic currently Morbid obesity with BMI of 50.0-59.9, adult Osteoarthritis Ileostomy in place Ulcerative colitis Hypothyroidism Diabetes mellitus, type 2 on metformin daily History of pulmonary embolism on Eliquis Heart murmur no significant valvular pathology on 03/08/2024 echo Surgical History History of benign breast biopsy History of total left knee replacement (TKR) History of total right knee replacement (TKR) History of gastric bypass History of hernia surgery History of cholecystectomy History of appendectomy History of colonoscopy and ileoscopy History of esophagogastroduodenoscopy (EGD) History of colon resection performed about 20yrs ago d/t ulcerative colitis---has ileostomy History of tooth extraction History of wisdom tooth extraction History of thyroidectomy, total d/t nodules History of bilateral cataract extraction Family History Sister Family history of reaction to anesthesia nausea/vomiting Social History Smoking Status: Never smoker Second Hand Exposure: Yes (adulthood); Do You Dip or Chew Tobacco: No; Tobacco Cessation Education Requested by Patient: No Hx Alcohol Use: No Hx Substance Use: No Preferred Language: Marshallese Communication Ability: Effective Rn Procedure Required: No Beliefs That Will Affect Care: None Current Living Situation: Family Current Living Situation Comment: [facility] Other Information That Helps Us Care for You: No Feels Safe at Home: Yes Safety Concerns: Feels Safe At This Time Assistive Devices: Glasses and Walker Review of Systems All systems reviewed & are unremarkable except as noted in HPI & below Physical Exam Physical Exam: Constitutional: WD/WN, vitals as a arvind + morbidly o bese and cooperati ve; not in distres s ENMT: Ears: no hearing i mpairment Neck: trachea midline Respiratory: normal respiratory effort, lungs miracle ar to auscultation Auscultation: + diminished lung so unds Cardiovascular: Rate/Rhythm: regul ar rate and regula r rhythm Vessels: posterior tibial pulses present, do rsalis pedis pulse s present and radi al pulses present; + abnormal periph eral pulses Extre mities: normal cap illary refill and + edema Gastrointestinal ( Abdomen): Inspection/Auscult ation: abdomen nor mal to inspection, normal bowel soun ds and + abdominal surgical scar (mu ltiple, ileostomy present. draining sinus under ileos kael dressing. ) Percussion/Palpati on: abdomen soft; abdomen nontender Musculoskeletal: no cyanosis or clu bbing, extremities motor strength 5/ 5 Skin: no rashes, warm an d dry Neurologic: moves all extremit ies and awake; no focal motor defici ts and not confuse d Psychiatric: A+Ox3, euthymic af fect Results & Data Vital Signs (Past 12 Hours) Vital Signs Temp Pulse Resp BP BP Pulse Ox O2 Del Method 06/27/24 07:27 140/72 06/27/24 06:58 36.9 C 83 20 165/92 H 96 Room Air
[2024-06-27] MEDS ORDERED: HYDROmorphone INJ 1 MG/ML SYRINGE IV PRN (07:52)
[2024-06-27] MEDS ORDERED: ONDANSETRON INJ 2 MG/ML 2 ML VIAL IV PRN (07:52)
[2024-06-27] MEDS ORDERED: ePHEDrine sulfate 50 MG/ML AMP IV PRN (07:52)
[2024-06-27] MEDS ORDERED: ATROPINE SULFATE 0.1 MG/ML 10ML SYR IV PRN (07:52)
[2024-06-27] MEDS ORDERED: fentaNYL citrate PF 100 MCG/2 ML VIAL IV PRN (07:52)
[2024-06-27] MEDS ORDERED: fentaNYL citrate PF 100 MCG/2 ML VIAL ONE (08:10)
[2024-06-27] MEDS ORDERED: HEPARIN SOD (PORCINE) 1000 UNIT/ML ONE ×2 (08:14→09:20)
[2024-06-27] MEDS ORDERED: DEXAMETHASONE SOD INJ 4 MG/ML VIAL ONE ×2 (08:17)
[2024-06-27] MEDS ORDERED: ONDANSETRON INJ 2 MG/ML 2 ML VIAL ONE (08:17)
[2024-06-27] MEDS ORDERED: PROTAMINE SULFATE 10 MG/ML 5 ML VIAL IV ONE (08:17)
[2024-06-27] MEDS: TICAGRELOR 90 MG TAB PO STA (08:20)
[2024-06-27] MEDS: ASPIRIN 81 MG CHEW PO ONE (08:21)
[2024-06-27] MEDS: ceFAZolin 3,000 MG/72.5 ML BAG IV SCH (08:29)
[2024-06-27] MEDS: THROMBIN FOR SOLN 20000 UNIT KIT ONE (10:21)
[2024-06-27] MEDS: GELATIN SPONGE SZ 100 ONE (10:21)
[2024-06-27] MEDS ORDERED: SUGAMMADEX SODIUM 200 MG/2 ML VIAL IV ONE (10:24)
[2024-06-27] MEDS: VISIPAQUE IV ONE (10:25)
[2024-06-27] MEDS: BUPIVACAINE/EPINEPHRINE 0.5% MPF 1:200,000 30 ML VIAL ONE (10:26)
[2024-06-27] MEDS: ceFAZolin 330 MG/ML 1 GM VIAL ONE (10:27)
--- NOTE | 2024-06-27 10:54 | Procedure Note ---
Angiogram Post Procedure Fluoroscopy Time (minutes): 20.5 Radiation (mGy): 252 Contrast: 40 Post Operative Report Pre & Post Diagnosis Operation Date: 06/27/24 08:25 Pre-Op Diagnosis: Left internal carotid artery stenosis Post-Op Diagnosis: Left internal carotid artery stenosis I identified the patient and participated in the time-out.: Yes Procedure Operation Date: 06/27/24 08:25 Actual Procedures p Left Transcarotid Artery Revascularization Ultrasound Right Femoral Vein(Left) - Stan Vazquez MD Surgeon Stan Vazquez MD Porcelain Enamel Laborer none Estimated Blood Loss 50 Findings Consistent with Post-Op Diagnosis Specimens none Anesthesia Type General Complications none Disposition Accompanied Patient To Recovery: No Disposition: Recovery Room Indications This is a 79-year-old female seen for bilateral severe carotid stenosis. Admitted at this time TCAR. I have discussed the risks options and benefits of the procedure with the patient. The patient understands the risks options and benefits and agrees to the procedure. Description of Procedure The patient was taken to the operating room and placed in supine position. After general anesthesia was accomplished the groins and left side of the neck and chest were prepped and draped in a sterile manner. Timeout was performed and the patient was identified. A transverse incision was made just above the clavicle between the heads of the sternocleidomastoid. This is carried down to where the common carotid artery was identified. It was isolated. It was slung with umbilical tape. Next the U stitch was placed in the common carotid artery with a 5-0 Prolene suture. Patient was given 9000 heparin at that time. ACT was 242 we therefore gave another 2000 units of heparin. Repeat ACT was 264. Ultrasound was then used to localize the right common femoral vein. The vein was patent and compressed easily. Under ultrasound guidance the right common femoral vein was punctured and the venous sheath was inserted. This was aspirated and flushed with heparinized saline. Using micropuncture technique the common carotid artery was punctured. The micro sheath was inserted to 3 cm. Injection was then done showing the bifurcation. There was a significant lesion seen at the origin of the internal carotid artery on the left side in a greater than 95% narrowing. We then inserted the J-wire left and short of the lesion. The micro sheath was removed and the TCAR sheath was inserted. Once it was in place and held against the artery it was sutured to the chest wall and the incision edge. We then flushed the tubing appropriately. The venous return to was clamped onto the TCAR sheath. It was flushed through and then attached to the venous inflow sheath in the left groin. Sheath was checked for flow. The saline cleared nicely. The common carotid artery was then clamped. Flow reversal was instituted. We inserted a 5 x 35 balloon backloaded on the wire. The wire would not pass through the lesion. We therefore tried a Kumpe catheter with the 014 wire. Again we cannot cross the lesion. We then used an 035 Glidewire and a Kumpe. This was successful in crossing the lesion. The Kumpe catheter was then passed through the lesion. The 035 wire was then exchanged the 014 wire. The wire was passed into the petrous portion of the internal carotid. We then reinserted the 5 x 35 balloon. The 5 balloon was then advanced to the lesion. Lesion was then predilated with a 5 mm balloon. Balloon was removed. We then inserted the 9/7 x 40 stent. This was deployed across the lesion without difficulty. The catheter was removed. The carotid was allowed to go 2 minutes with flow reversal. Completion angiogram was done at that time which showed a residual waist at the lesion of the carotid stent. We then used a 5.5 x 35 balloon to post dilate the area. We then did another arteriogram which showed still a narrowing seen right at the area of the lesion. We then used a 6 x 25 balloon to dilate this area. Better results were noted. There is narrowing but minimal at that point. The wire was then removed. At that point the common carotid artery was unclamped. The venous return tubing was clamped and removed from the TCAR sheath. The blood was allowed to flow back into the venous system. Once this was completed the sheath was pulled from the groin and pressure was applied. The TCAR sheath was then removed and the 5- 0 Prolene suture securely tied. Protamine was given once the carotid suture was tied. Hemostasis was noted of the puncture site. Wound was irrigated with Ancef solution. Adequate hemostasis was obtained of the wound. Once this was noted the wound was closed in usual fashion using a 3-0 Vicryl suture for the subcutaneous layer and a 4-0 subcuticular Vicryl suture for the skin edges. Dermabond was used for dressing.The patient left the operation room in satisfactory condition and tolerated the procedure well. All needle and sponge counts were correct at the end of the procedure. I attest to the content of the Intraoperative Record and any orders documented therein. Any exceptions are noted below.
--- NOTE | 2024-06-27 11:28 | Anesthesiology Progress Note ---
Date of Service June 27, 2024 Anesthesia Post Procedure Vital Signs Vital Signs: Temp Pulse Pulse Resp BP BP BP 06/27/24 11:15 36.3 C L 80 16 120/56 L 06/27/24 11:05 88 16 111/53 L 06/27/24 10:55 89 14 112/52 L 06/27/24 10:45 36.5 C 90 16 130/73 06/27/24 07:27 140/72 06/27/24 06:58 36.9 C 83 20 165/92 H Pulse Ox O2 Del Method O2 Flow Rate 06/27/24 11:15 94 Nasal Cannula 3 06/27/24 11:05 93 Oxymask 4 06/27/24 10:55 93 Oxymask 6 06/27/24 10:45 94 Oxymask 10 06/27/24 07:27 06/27/24 06:58 96 Room Air Transfer of Care Handoff Completed per policy Notes Mental Status: alert / awake / arousable and participated in evaluation Patient Amnestic to Procedure: Yes Nausea / Vomiting: adequately controlled Pain: adequately controlled Airway Patency, RR, SpO2: stable & adequate BP & HR: stable & adequate Hydration State: stable & adequate Anesthetic Complications: no major complications apparent and Pt Satisfied with anesthetic care
[2024-06-27] MEDS ORDERED: ACETAMINOPHEN 325 MG PO PRN (11:54)
[2024-06-27] MEDS ORDERED: PHENYLEPHRINE/NSS 25 MG/250 ML BAG IV PRN (11:54)
[2024-06-27] MEDS ORDERED: PHARMACY GLYCEMIC MGMT CONSULT PRN (11:54)
[2024-06-27] MEDS ORDERED: STAT IV Infusion **Titration per Protocol STA (11:54)
[2024-06-27] MEDS: oxyCODONE HCL IR 5 MG TAB (IMMEDIATE RELEASE) PO PRN (13:01)
[2024-06-27] MEDS: LACTATED RINGER'S 1,000 ML IV SCH (13:02)
--- NOTE | 2024-06-27 13:46 | Pharmacy Report ---
Pharmacy Glycemic Short Note 2 - Date of Service June 27, 2024 - Glycemic Short BSG Results (Last 24 hours): 06/27/24 06/27/24 06/27/24 06:52 06:58 10:48 Glucose 146 H POC Glucose 144 H 189 H 06/27/24 11:49 Glucose POC Glucose 188 H OUTPATIENT ANTIDIABETIC REGIMEN: * Metformin * HbA1c outdated but 6.7% most recently. Re-ordered for 06/28/24. ASSESSMENT: * 79 yo F w T2DM admitted w b/l MARYJO and now POD 0 w dexamethasone 8 mg IV overriden in OR * Will utilize adjBW for dosing calculations and target a severe stress estimate (but with slightly looser correction). * Full daily dose of moderate stress estimate for basal estimation * One overnight check * Since insulin w lunch will be admin late, will administer CHO ratio *only* with dinner to prevent overcorrection PLAN FOR INPATIENT GLYCEMIC CONTROL: * Hold outpatient oral diabetes medications * Basal insulin * Lantus 30 units SQ x1 * Bolus insulin * NovoLog per scale ACHS or Q6hrs while NPO * Goal Range: Low 110 mg/dL - High 140 mg/dL * Correction Factor: 20 mg/dL/unit * Nutritional / Prandial insulin per carb ratio of 1 unit per 6 grams CHO consumed
--- NOTE | 2024-06-27 13:51 | Critical Care Consultation ---
Date of Consultation June 27, 2024 Assessment & Plan (1) Carotid stenosis: (2) Morbid obesity: (3) CHF (congestive heart failure): (4) Pulmonary hypertension: (5) Diabetes mellitus, type 2: Plan Impression: 79-year-old female with multiple medical issues including heart fail ure, cirrhosis, morbid obesity, chronic kidney disease, ulcerative colitis, and morbid obesity status post TCAR on the left for incidentally noted carotid stenosis. She is being observed in the ICU and is hemodynamically stable currently. Recommendations: 1. Status post TCAR: Management per vascular surgery. Defer blood pressure goals and management to them. Will defer decisions regarding long-term anticoagulation to them as well. 2. Diabetes: Continue glycemic control per protocol. Restart metformin in the a.m. given contrast load today. Cover with insulin as needed. 3. Hypothyroidism: Continue outpatient thyroid medications. 4. History of heart failure: Appears well-controlled currently. Continue home diuretics. Defer restarting Brilinta to vascular surgery. Patient uses midodrine in the outpatient setting so it seems reasonable to continue this and avoid hypotension. 5. Ulcerative colitis: Quiescent currently. Continue to follow. The patient's remaining medical issues have been well addressed by the vascular surgery service. Will continue to follow during her ICU course. Disposition per vascular surgery. Thanks for the opportunity to participate in the care of this patient. Feel free to contact us with questions or concerns History of Present Illness Attending Physician: Stan Vazquez MD History of Present Illness Asked by vascular surgery to assist in evaluation management of this patient in the ICU post carotid revascularization. History is obtained from discussion with the patient as well as review the electronic medical record. The patient is a 79-year-old female with PAD multiple admissions due to dizziness and nausea and vomiting was found to have carotid stenosis identified on imaging previously. She was seen in the vascular surgery clinic in follow-up and was felt to be an appropriate candidate for left TCAR. The above procedure was accomplished today and the patient returns to the ICU hemodynamically stable. She is not having any neurological issues currently. Allergies Allergy/AdvReac Type Severity Reaction Status Date / Time red dye Allergy Severe Anaphylaxis Verified 06/27/24 07:01 Home Medications Medication Instructions Recorded Confirmed Type metformin 500 mg tablet 500 mg PO BID 09/18/22 06/27/24 History pravastatin 40 mg tablet 40 mg PO HS 09/18/22 06/27/24 History levothyroxine 200 mcg tablet 200 mcg PO QAM 12/03/22 06/22/24 History cholecalciferol (vitamin D3) 50 50 mcg PO QAM 02/27/23 06/27/24 History mcg (2,000 unit) capsule (Vitamin D3) cyanocobalamin (vitamin B-12) 1,000 mcg PO QAM 02/27/23 06/27/24 History 1,000 mcg tablet (Vitamin B-12) levothyroxine 25 mcg tablet 25 mcg PO QAM 12/07/23 06/27/24 History apixaban 5 mg tablet (Eliquis) 5 mg PO BID #60 tabs 12/09/23 06/27/24 Rx acetaminophen 325 mg tablet 650 mg PO Q4H PRN Pain 03/07/24 06/27/24 History aspirin 81 mg tablet,delayed 81 mg PO QAM #30 tabs 03/19/24 06/27/24 Rx release famotidine 20 mg tablet (Pepcid) 20 mg PO BID Acid Reflux #60 tabs 03/19/24 06/27/24 Rx thiamine HCl (vitamin B1) 100 mg 200 mg (2 x 100 mg) PO QAM #60 tabs 03/19/24 06/27/24 Rx tablet Brilinta 1 tab PO UD 06/14/24 06/27/24 History amoxicillin 875 mg-potassium 1 tab PO BID 06/14/24 06/27/24 History clavulanate 125 mg tablet torsemide 10 mg tablet 10 mg PO DAILY 06/22/24 06/27/24 History midodrine 5 mg tablet 5 mg PO DAILY 06/27/24 06/27/24 History Patient History Medical History Pulmonary hypertension mild-03/08/2024 echo History of DVT of lower extremity (2023) Carotid stenosis, bilateral History of CVA (cerebrovascular accident) no deficits Family history of reaction to anesthesia sister N/V residential (current) use of anticoagulants eliquis Cirrhosis Depression CHF (congestive heart failure) 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" on antibiotic currently Morbid obesity with BMI of 50.0-59.9, adult Osteoarthritis Ileostomy in place Ulcerative colitis Hypothyroidism Diabetes mellitus, type 2 on metformin daily History of pulmonary embolism on Eliquis Heart murmur no significant valvular pathology on 03/08/2024 echo Surgical History History of benign breast biopsy History of total left knee replacement (TKR) History of total right knee replacement (TKR) History of gastric bypass History of hernia surgery History of cholecystectomy History of appendectomy History of colonoscopy and ileoscopy History of esophagogastroduodenoscopy (EGD) History of colon resection performed about 20yrs ago d/t ulcerative colitis---has ileostomy History of tooth extraction History of wisdom tooth extraction History of thyroidectomy, total d/t nodules History of bilateral cataract extraction Family History Sister Family history of reaction to anesthesia nausea/vomiting Social History Smoking Status: Never smoker Second Hand Exposure: Yes (adulthood); Do You Dip or Chew Tobacco: No; Tobacco Cessation Education Requested by Patient: No Hx Alcohol Use: No Hx Substance Use: No Preferred Language: Upper Sorbian Communication Ability: Effective Animal Feeder Required: No Beliefs That Will Affect Care: None Current Living Situation: Family Current Living Situation Comment: [facility] Other Information That Helps Us Care for You: No Feels Safe at Home: Yes Safety Concerns: Feels Safe At This Time Assistive Devices: Glasses and Walker Review of Systems Review of Systems: All systems reviewed & are unremarkable except as noted in Subjective Physical Exam Physical Exam: Constitutional: Alert, oriented, in no acute distress HEENT: Head is atraumatic and normocephalic. EOMs intact. Sclera non-icteric. Face is symmetric Neck: No JVD Pulmonary: Normal respiratory effort, clear to auscultation throughout Cardiac: Regular rate and rhythm, normal S1 and S2, no gallops, no rubs, no murmurs Extremities: No significant lower extremity edema. No clubbing or cyanosis. 2+ radial pulses Abdomen: Normal bowel sounds, soft, non-tender, no abdominal masses palpated Skin: Normal skin color, turgor, and pigmentation. No rash or skin lesions Neurological: Oriented to person, place, and time Results & Data Results & Data Vital Signs (Past 12 Hours) Vital Signs Temp Pulse Pulse Resp BP BP BP 06/27/24 12:00 119/61 06/27/24 12:00 119/61 06/27/24 12:00 06/27/24 11:54 36.5 C 06/27/24 11:15 36.3 C L 80 16 120/56 L 06/27/24 11:05 88 16 111/53 L 06/27/24 10:55 89 14 112/52 L 06/27/24 10:45 36.5 C 90 16 130/73 06/27/24 07:27 06/27/24 06:58 36.9 C 83 20 165/92 H BP Pulse Ox O2 Del Method O2 Flow Rate 06/27/24 12:00 06/27/24 12:00 06/27/24 12:00 Nasal Cannula 2 06/27/24 11:54 06/27/24 11:15 94 Nasal Cannula 3 06/27/24 11:05 93 Oxymask 4 06/27/24 10:55 93 Oxymask 6 06/27/24 10:45 94 Oxymask 10 06/27/24 07:27 140/72 06/27/24 06:58 96 Room Air Critical Care Results & Data Vital Signs (Past 12 Hours) Vital Signs Temp Pulse Pulse Resp BP BP BP 06/27/24 12:00 119/61 06/27/24 12:00 119/61 06/27/24 12:00 06/27/24 11:54 36.5 C 06/27/24 11:15 36.3 C L 80 16 120/56 L 06/27/24 11:05 88 16 111/53 L 06/27/24 10:55 89 14 112/52 L 06/27/24 10:45 36.5 C 90 16 130/73 06/27/24 07:27 06/27/24 06:58 36.9 C 83 20 165/92 H BP Pulse Ox O2 Del Method O2 Flow Rate 06/27/24 12:00 06/27/24 12:00 06/27/24 12:00 Nasal Cannula 2 06/27/24 11:54 06/27/24 11:15 94 Nasal Cannula 3 06/27/24 11:05 93 Oxymask 4 06/27/24 10:55 93 Oxymask 6 06/27/24 10:45 94 Oxymask 10 06/27/24 07:27 140/72 06/27/24 06:58 96 Room Air Lab & Micro Results (Past 24 Hours) RBC 4.02 M/uL (4.20-5.40) L 06/27/24 WBC 8.17 K/ul (4.8-10.8) 06/27/24 Hgb 11.2 g/dl (12.0-16.0) L 06/27/24 Hct 36.2 % (37.0-47.0) L 06/27/24 MCV 90.0 fL (80.0-100.0) 06/27/24 MCH 27.9 pg (25.0-34.0) 06/27/24 MCHC 30.9 g/dL (32.0-36.0) L 06/27/24 RDW Standard Deviation 46.6 fL (36.4-46.3) H 06/27/24 RDW Coefficient of Variation 14.2 % (11.5-14.5) 06/27/24 Plt Count 283 K/uL (130-400) 06/27/24 MPV 10.3 fL (9.4-12.4) 06/27/24 Neutrophils (%) (Auto) 63.0 % 06/27/24 Lymphocytes (%) (Auto) 24.8 % 06/27/24 Monocytes # (Auto) 0.75 K/uL (0.11-0.59) H 06/27/24 Eosinophils # (Auto) 0.17 K/uL (0.00-0.50) 06/27/24 Immature Granulocyte % (Auto) 0.2 % 06/27/24 Neutrophils # (Auto) 5.14 K/uL (1.40-6.50) 06/27/24 Lymphocytes # (Auto) 2.03 K/uL (1.20-3.40) 06/27/24 Monocytes # (Auto) 0.75 K/uL (0.11-0.59) H 06/27/24 Eosinophils # (Auto) 0.17 K/uL (0.00-0.50) 06/27/24 Basophils # (Auto) 0.06 K/uL (0.00-0.20) 06/27/24 Immature Granulocyte # (Auto) 0.02 K/uL (0.01-0.20) 4 Na 141 mmol/L (136-145) 06/27/24 K 4.2 mmol/L (3.5-5.1) 06/27/24 Cl 104 mmol/L (98-107) 06/27/24 CO2 28 mmol/L (21-32) 06/27/24 Anion Gap 9 (3-11) 06/27/24 BUN 28 mg/dl (6-23) H 06/27/24 Creatinine 0.87 mg/dl (0.6-1.2) 06/27/24 Estimated GFR ( Amer) 74.5 ml/min 06/27/24 Estimated GFR (Non-Af Amer) 64.3 ml/min 06/27/24 BUN/Creatinine Ratio 32.2 (10-20) H 06/27/24 Glu 146 mg/dl (70-99(Fasting)) H 06/27/24 Ca 8.9 mg/dl (8.6-10.3) 06/27/24 Calcium Level 8.9 mg/dl (8.6-10.3) 06/27/24 06:52 Prothromb Time International Ratio 0.9 (0.9-1.1) 06/27/24 06:5 2 I & O Totals 24 Hours 06/26/24 06/27/24 06/28/24 06:59 06:59 06:59 Intake Total 1072.5 / 1072.5 Output Total 50 / 50 Balance 1022.5 / 1022.5 Cumulative 05/11/24 13:55 thru 06/27/24 12:28 Intake Total 1072.5 Output Total 50 Balance 1022.5 RT Ventilator Mngmt (Last Documented) Ventilator Ordered Settings Respiratory Rate 16 06/27/24 11:15 Ventilator - PT Measurements Respiratory Rate 16 Coding Level of Care Code 51449 IN/OBS CONSULT LVL 3,45M Diagnoses Carotid stenosis I65.29 Morbid obesity E66.01 CHF (congestive heart failure) I50.9 Heart failure chronicity: acute Heart failure type: unspecified Pulmonary hypertension I27.20 Diabetes mellitus, type 2 E11.9 (3) CHF (congestive heart failure) Heart failure chronicity: acute Heart failure type: unspecified Qualified Code(s): I50.9 - Heart failure, unspecified
[2024-06-27] MEDS: INSULIN ASPART PER UNIT CHARGE SC SCH ×2 (14:25→17:28)
[2024-06-27] MEDS: LANTUS PER UNIT CHARGE SC ONE (14:26)
[2024-06-27] MEDS: ceFAZolin 2000MG 2,000 MG/15 ML SYR IV SCH (15:35)
[2024-06-27] MEDS ORDERED: INSULIN ASPART PER UNIT CHARGE SC SCH (16:30)
[2024-06-27] MEDS: APIXABAN 5 MG TABLET PO SCH (21:30)
[2024-06-27] MEDS: FAMOTIDINE 20 MG TAB PO SCH (21:30)
[2024-06-27] MEDS: PRAVASTATIN SOD 40 MG TAB PO SCH (21:31)
[2024-06-27] MEDS: TICAGRELOR 90 MG TAB PO SCH (21:31)
[2024-06-27] MEDS: TYLENOL 650 MG PO PRN (21:33)
[2024-06-28] MEDS: INSULIN ASPART PER UNIT CHARGE SC ONE (03:45)
[2024-06-28] MEDS: LEVOTHYROXINE SODIUM 25 MCG TABLET PO SCH (06:25)
[2024-06-28] MEDS: LEVOTHYROXINE SODIUM 200 MCG PO SCH (06:25)
[2024-06-28] MEDS ORDERED: LEVOTHYROXINE SODIUM 200 MCG TABLET PO SCH (06:30)
[2024-06-28 06:58] LABS: Estimated Average Glucose 134 mg/dl; Hemoglobin A1C 6.3 % (4.5-5.6)
--- NOTE | 2024-06-28 07:37 | Critical Care Progress Note ---
Date of Service June 28, 2024 Assessment & Plan (1) Carotid stenosis: (2) Morbid obesity: (3) CHF (congestive heart failure): (4) Pulmonary hypertension: (5) Diabetes mellitus, type 2: Plan Impression: 79-year-old female with multiple medical issues including heart failure, cirrhosis, morbid obesity, chronic kidney disease, ulcerative colitis, and morbid obesity postop day 1 TCAR on the left for incidentally noted carotid stenosis. She is doing well clinically and is without significant complaints currently Recommendations: 1. Status post TCAR: Management per vascular surgery. Defer blood pressure goals and management to them. Will defer decisions regarding long-term anticoagulation to them as well. 2. Diabetes: Continue glycemic control per protocol. Restart metformin. Cover with insulin as needed. 3. Hypothyroidism: Continue outpatient thyroid medications. 4. History of heart failure: Appears well-controlled currently. Continue home diuretics. Continuing outpatient Brilinta and midodrine 5. Ulcerative colitis: Quiescent currently. Continue to follow. Disposition per vascular surgery. Her critical care issues are resolved. Critical care services will sign off. Feel free to contact us with questions or concerns Admission and Anticipated Discharge Date Admission Date: June 27, 2024 Subjective Patient seen and examined. EMR reviewed. Discussed with bedside critical care nurse and on multidisciplinary rounds. The patient reports that she is doing well. She is not having any new neurological symptoms. Specifically denies numbness or tingling. Her voice is a little bit raspy but she is not having any issues swallowing. Minimal pain at her incision sites. She was able to sleep reasonably well overnight. She denies fevers chills or night sweats. No chest pain palpitations. No shortness of breath. Review of Systems 2 Review of Systems: All systems reviewed & are unremarkable except as noted in Subjective Physical Exam 2 Physical Exam: Constitutional: Alert, oriented, in no acute distress HEENT: Head is atraumatic and normocephalic. EOMs intact. Sclera non-icteric. Face is symmetric Neck: No JVD Pulmonary: Normal respiratory effort, clear to auscultation throughout Cardiac: Regular rate and rhythm, normal S1 and S2, no gallops, no rubs, no murmurs Extremities: No significant lower extremity edema. No clubbing or cyanosis. 2+ radial pulses Abdomen: Normal bowel sounds, soft, non-tender, no abdominal masses palpated Skin: Normal skin color, turgor, and pigmentation. No rash or skin lesions Neurological: Oriented to person, place, and time Results & Data Results & Data Vital Signs (Past 12 Hours) Vital Signs Temp Pulse Resp BP Pulse Ox O2 Del Method O2 Flow Rate 06/28/24 06:00 65 22 110/62 99 Nasal Cannula 2 06/28/24 05:00 72 17 112/61 98 Nasal Cannula 2 06/28/24 04:00 36.7 C 72 17 103/59 L 96 Nasal Cannula 2 06/28/24 03:00 70 18 108/63 96 Nasal Cannula 2 06/28/24 02:00 77 15 102/66 95 Nasal Cannula 2 06/28/24 01:00 72 19 101/64 94 Room Air 06/28/24 00:00 36.5 C 78 17 92/73 L 96 Nasal Cannula 2 06/27/24 23:00 75 16 113/63 97 Nasal Cannula 2 06/27/24 22:00 80 16 115/67 96 Nasal Cannula 2 06/27/24 21:00 78 14 117/74 97 Nasal Cannula 2 06/27/24 20:00 36.6 C 80 16 123/73 96 Nasal Cannula 2 06/27/24 20:00 Nasal Cannula 2 Laboratory Results 06/27/24 06:52 06/27/24 06:52 Diagnostic Findings No new imaging Coding Level of Care Code 94057 SUB INP/OBS CARE MIN Diagnoses Carotid stenosis I65.29 Morbid obesity E66.01 CHF (congestive heart failure) I50.9 Heart failure chronicity: acute Heart failure type: unspecified Pulmonary hypertension I27.20 Diabetes mellitus, type 2 E11.9 (3) CHF (congestive heart failure) Heart failure chronicity: acute Heart failure type: unspecified Qualified Code(s): I50.9 - Heart failure, unspecified
[2024-06-28] MEDS: ASPIRIN 81 MG PO SCH (08:02)
[2024-06-28] MEDS: CYANOCOBALAMIN (B-12) 500 MCG TABLET PO SCH (08:04)
[2024-06-28] MEDS: MIDODRINE HCL 2.5 MG TAB PO SCH (08:04)
[2024-06-28] MEDS: THIAMINE HCL 100 MG TAB PO SCH (08:04)
[2024-06-28] MEDS: CHOLECALCIFEROL 25 MCG (1000 UNITS) TAB PO SCH (08:04)
[2024-06-28] MEDS: TORSEMIDE 10 MG TAB PO SCH (08:04)
[2024-06-28] MEDS: LANTUS PER UNIT CHARGE SC ONE (08:05)
--- NOTE | 2024-06-28 09:26 | Discharge Summary ---
Date of Service June 28, 2024 Admission HPI Per Admitting Provider 79 yo f with multiple medical problems, including arthritis, hx of DVT/PE, liver cirrhosis, CKD, vertigo, UC s/p proctatectomy/ colectomy with colostomy, open draining sinus from surgery, GERD, hypothyroidism, CHF, DMII, admitted after severe dizziness/N/V at home and found to have carotid stenosis, seen earlier this year for same. Pt denies any prior knowledge. Review of her chart since Nov 30 indicated multiple admissions for similar sx. Admission in Nov revealed DVT/PE with R heart strain, apparently improved upon admission in January 2024, although still with slightly reduced EF. Pt states she has never seen a log buncher as outpt, she was seen during admission here only. States she "didn't get around to setting that up yet." She has not been consistent in her outpt care. She does not drive and relies on her daughter to drive her places. Has had chronic dizziness, sometimes associated with N/V, for many months. She has had near syncopal events and had some falls at home. Denies any lateral izing sx, amaurosis, aphasia, facial droop. Admission Exam Per Admitting Provider Constitutional: WD/WN, vitals as a arvind + morbidly o bese and cooperati ve; not in distres s ENMT: Ears: no hearing i mpairment Neck: trachea midline Respiratory: normal respiratory effort, lungs miracle ar to auscultation Auscultation: + diminished lung so unds Cardiovascular: Rate/Rhythm: regul ar rate and regula r rhythm Vessels: posterior tibial pulses present, do rsalis pedis pulse s present and radi al pulses present; + abnormal periph eral pulses Extre mities: normal cap illary refill and + edema Gastrointestinal ( Abdomen): Inspection/Auscult ation: abdomen nor mal to inspection, normal bowel soun ds and + abdominal surgical scar (mu ltiple, ileostomy present. draining sinus under ileos kael dressing. ) Percussion/Palpati on: abdomen soft; abdomen nontender Musculoskeletal: no cyanosis or clu bbing, extremities motor strength 5/ 5 Skin: no rashes, warm an d dry Neurologic: moves all extremit ies and awake; no focal motor defici ts and not confuse d Psychiatric: A+Ox3, euthymic af fect Principal Diagnosis Bilateral carotid stenosis Discharge Exam Constitutional: WD/WN, vitals as above + morbidly obese and cooperative; not in distress ENMT: Ears: no hearing impairment Neck: trachea midline Respiratory: normal respiratory effort, lungs clear to auscultation Auscultation: + diminished lung sounds Cardiovascular: Rate/Rhythm: regular rate and regular rhythm Vessels: posterior tibial pulses present, dorsalis pedis pulses present and radial pulses present; + abnormal peripheral pulses Extremities: normal capillary refill and + edema Gastrointestinal (Abdomen): Inspection/Auscultation: abdomen normal to inspection, normal bowel sounds and + abdominal surgical scar (multiple, ileostomy present. draining sinus under ileostomy dressing. ) Percussion/ Palpation: abdomen soft; abdomen nontender Musculoskeletal: no cyanosis or clubbing, extremities motor strength 5/5 Skin: no rashes, warm and dry Neurologic: moves all extremities and awake; no focal motor deficits and not confused Psychiatric: A+Ox3, euthymic affect Constitutional WD/WN, vitals as above Neck trachea midline Cardiovascular Rate/Rhythm: regular rate and regular rhythm Extremities: normal capillary refill Skin + incision (dry and clean) Neurologic CN's II-XI intact bilaterally and moves all extremities Psychiatric A+Ox3, euthymic affect Discharge Data Allergies Allergy/AdvReac Type Severity Reaction Status Date / Time red dye Allergy Severe Anaphylaxis Verified 06/27/24 07:01 Consultations 06/27/24 11:54 Consult Occ Therapy Asst Routine Procedures Performed Operation Date: 06/27/24 08:25 Actual Procedures p Left Transcarotid Artery Revascularization Ultrasound Right Femoral Vein(Left) - Stan Vazquez MD Ordered Studies 06/27/24 07:22 EV angio carotid cerv LT Routine US EV guide vascular access Routine Hospital Course (1) Carotid stenosis: Patient is postoperative day 1 from a left TCAR. She is feeling well. She has no neurologic deficits. She will be discharged today weeks. Total Time Total Time Spent Total Time Spent (In Minutes): 0 Discharge Plan Discharge Items Patient Disposition: Home - Self-Care Reason For Visit: Bilateral Carotid Artery Stenosis Discharge Diagnosis: Bilateral carotid artery stenosis Activity: Per Instructions section Lifting: Gradually increase as tolerated Bathing Comment: May shower after 48hours post surgery Non-emergency contact: Surgeon Call non-emergency contact if: your temperature is above 101.5, your wound has increased redness, your wound has increased drainage and your wound pain has increased Follow-up/Referrals: Tanisha Reyes MD [Primary Care Provider] - Diet: Carb Consistent or DM2 and Heart Healthy Addtl Attending Provider Instructions: SPECIAL CARE INSTRUCTIONS: Medications: * Continue to take Aspirin, Brilinta, and statin as directed. Incision Care: * You may shower, but do not rub incision. You may let the warm soapy water run over it. Be sure to dry the incision well after bathing. * Do not shave directly over the incision until it is healed. * DO NOT IMMERSE THE INCISION IN A TUB/POOL/etc. UNTIL HEALED. Restrictions: * Do not drive for at least one week or if you are still taking any narcotic pain medication. * Do not lift anything heavier than a gallon of milk for one week after going home. Possible Complications: * Numbness - It is normal to have some numbness around the incision. Numbness can extend beyond the incision to areas of the neck, ear and face. The numbness is due to bruising of nerves during the surgery and will gradually improve over a period of months. * Hoarseness/Difficulty Speaking and Swallowing - The bruising of nerves in the neck can also cause a hoarse voice, difficulty speaking or swallowing. This may improve over time, HOWEVER, if it continues for more than a few days please contact our office ([phone]). * Excessive Swelling - There will be some swelling immediately after surgery which usually resolves within one week. If you notice that the swelling is getting worse, notify your surgeon ([phone]). * Drainage/Bleeding - If there is any drainage or bleeding, it should be a very small amount (less than a teaspoon per day). If you have excessive bleeding or drainage from the incision, call your surgeon ([phone]) right away. ACTIVATION OF EMERGENCY MEDICAL SYSTEM: Call 911, immediately, if you experience any of the following: Warning Signs and Symptoms of Stroke: * Sudden numbness or weakness of the face, arm or leg, especially on one side of the body * Sudden confusion, trouble speaking or understanding * Sudden trouble seeing in one or both eyes * Sudden trouble walking, dizziness, loss of balance or coordination * Sudden severe headache with no cause Do not delay calling 911 if you experience any warning signs or symptoms of a stroke. Delay in seeking medical attention may affect what treatments can be given to you. Risk Factors for Stroke: You can reduce your chances of stroke by working with your medical provider to adopt a healthy lifestyle. Some specific ways to lower your chance of stroke are: * If you are a smoker, now is the time to stop smoking cigarettes * If you are diabetic, improve the control of your blood sugars * Avoid excessive amounts of alcohol * Control high blood pressure * Lose weight if you are overweight * Be sure to lead an active lifestyle * Eat a healthy diet low in salt, cholesterol and fat You should know about other risk factors for stroke that you are unable to control. These include: * Age 55 years or older * Male gender * Certain racial groups: , or / * Family History of Stroke, Mini stroke or Heart Attack * Sickle Cell Disease You will be receiving a call from the Vascular Surgery Nurse after you are discharged. FOLLOW UP VISIT: It is important for you to keep your follow up appointments with your medical provider. Keep any scheduled doctor appointments. Call [phone] to schedule a follow up appointment if one not already scheduled. Pending Studies at Discharge: No Stand-Alone Forms: My [facility] [email or web address], Smoking Cessation Medications and DC Order Prescriptions: New oxycodone 5 mg Tablet 5 mg PO Q6 PRN (Reason: pain) Qty: 10 0RF Continued torsemide 10 mg tablet 10 mg PO DAILY levothyroxine 200 mcg Tablet 200 mcg PO QAM Patient Comments: takes 200 mcg with 25 mcg for dose of 225 mcg Rx Instructions: Take 200mcg w/ 25mcg once every morning to equal 225mcg cyanocobalamin (vitamin B-12) [Vitamin B-12] 1,000 mcg Tablet 1,000 mcg PO QAM cholecalciferol (vitamin D3) [Vitamin D3] 50 mcg (2,000 unit) Capsule 50 mcg PO QAM levothyroxine 25 mcg Tablet 25 mcg PO QAM Patient Comments: takes with 200 mcg Rx Instructions: Take 25mcg w/ 200mcg once every morning to equal 225mcg Eliquis 5 mg tablet 5 mg PO BID Qty: 60 0RF metformin 500 mg Tablet 500 mg PO BID pravastatin 40 mg Tablet 40 mg PO HS acetaminophen 325 mg Tablet 650 mg PO Q4H MDD 3gm/24hr PRN (Reason: Pain) aspirin 81 mg Tablet,Delayed Release (Dr/Ec) 81 mg PO QAM Qty: 30 0RF thiamine HCl (vitamin B1) 100 mg Tablet 200 mg PO QAM Qty: 60 0RF famotidine [Pepcid] 20 mg Tablet 20 mg PO BID Qty: 60 0RF Patient Comments: hardly uses amoxicillin-pot clavulanate 875-125 mg Tablet 1 tab PO BID Rx Instructions: will finish 06/16/2024 Brilinta 1 tab PO UD Patient Comments: patient is unsure of dosage and how often she takes Brilinta midodrine 5 mg tablet 5 mg PO DAILY Discharge Orders: Discharge Order (Routine); Ordered 06/28/24 Ordered By: Stan Alvarado/Other Patient Handouts: Managing Type 2 Diabetes Admission Data Admit Date/Time: 06/27/24 07:48 Attending Provider: Stan Vazquez Admit Provider: Stan Vazquez Primary Care Provider: Tanisha Reyes Other Providers: Cuong Saez; Donald Tapia; Mike Warren; Bj Gonzalez; Myrna Hall Muqueet; Adam Blank; Aster Austin; Jodee Reeves; Khoa Schwartz; Vinod Durán; Katie Bhatti
--- NOTE | 2024-06-28 09:26 | Surgery Progress Note ---
Date of Service June 28, 2024 Assessment & Plan (1) Carotid stenosis: Plan: Patient is postoperative day 1 from a left TCAR. She is feeling well. She has no neurologic deficits. She will be discharged today weeks. Admission and Anticipated Discharge Date Admission Date: June 27, 2024 Subjective Patient is awake and sitting in the chair. He has no complaints. He has no problems with difficulty swallowing hoarseness. She denies any focal deficits. Physical Exam Constitutional: WD/WN, vitals as above Neck: trachea midline Cardiovascular: Rate/Rhythm: regular rate and regular rhythm Extremities: normal capillary refill Skin: + incision (dry and clean) Neurologic: CN's II-XI intact bilaterally and moves all extremities Psychiatric: A+Ox3, euthymic affect Results & Data Vital Signs (Past 12 Hours) Vital Signs Temp Pulse Resp BP Pulse Ox O2 Del Method O2 Flow Rate 06/28/24 08:10 67 14 106/81 94 Room Air 06/28/24 07:00 62 16 115/67 97 Nasal Cannula 2 06/28/24 06:00 65 22 110/62 99 Nasal Cannula 2 06/28/24 05:00 72 17 112/61 98 Nasal Cannula 2 06/28/24 04:00 36.7 C 72 17 103/59 L 96 Nasal Cannula 2 06/28/24 03:00 70 18 108/63 96 Nasal Cannula 2 06/28/24 02:00 77 15 102/66 95 Nasal Cannula 2 06/28/24 01:00 72 19 101/64 94 Room Air 06/28/24 00:00 36.5 C 78 17 92/73 L 96 Nasal Cannula 2 06/27/24 23:00 75 16 113/63 97 Nasal Cannula 2 06/27/24 22:00 80 16 115/67 96 Nasal Cannula 2
--- NOTE | 2024-06-28 10:24 | Pharmacy Report ---
Pharmacy Glycemic Short Note 2 - Date of Service June 28, 2024 - Glycemic Short BSG Results (Last 24 hours): 06/27/24 06/27/24 06/27/24 10:48 11:49 16:18 POC Glucose 189 H 188 H 152 H 06/27/24 06/28/24 06/28/24 21:39 03:22 07:26 POC Glucose 144 H 142 H 113 H OUTPATIENT ANTIDIABETIC REGIMEN: * Metformin * HbA1c 6.3% 06/28/24. ASSESSMENT: 06/28 * BSG's responded nicely to the interventions yesterday. HbA1c resulted today indicating good outpatient control on metrormin monotherapy * Will scale back on Lantus and Novolog now that dexamethasone may be starting to wear off * Anticipate no ongoing basal insulin after this AM. May be able to eliminate CHO ratio completely and resume home metformin tomorrow 06/27 * 79 yo F w T2DM admitted w b/l MARYJO and now POD 0 w dexamethasone 8 mg IV overriden in OR * Will utilize adjBW for dosing calculations and target a severe stress estimate (but with slightly looser correction). * Full daily dose of moderate stress estimate for basal estimation * One overnight check * Since insulin w lunch will be admin late, will administer CHO ratio *only* with dinner to prevent overcorrection PLAN FOR INPATIENT GLYCEMIC CONTROL: * Hold outpatient oral diabetes medications * Basal insulin * Lantus 0-10 units SQ x1 this AM depending on BSG * Bolus insulin * NovoLog per scale ACHS or Q6hrs while NPO * Goal Range: Low 110 mg/dL - High 140 mg/dL * Correction Factor: 25 mg/dL/unit * Nutritional / Prandial insulin per carb ratio of 1 unit per 7 grams CHO consumed
== END 2024-06-28 14:06 | disposition home or self-care (01) | DRG 35 ==
LOC: ASU 06:26 → 1E 07:48
PROC: EV.TCAR (2024-06-27 08:25)

== ENCOUNTER 2024-08-10 11:07 | Inpatient (IN) ==
--- NOTE | 2024-08-05 13:46 | Anesthesiology Consultation ---
Date of Service August 05, 2024 Assessment & Plan (1) Encounter for pre-operative examination: - Check BSG AM DOS - ASA/Eliquis instructions per surgeon/prescriber - Infectious disease screening: Per assessment on 08/05/24: No known recent infectious disease contacts or current infectious disease symptoms. - Cardiology visit 06/22/24 [place]: "...history of DVT/PE, type 2 diabetes, cir rhosis, Crohn's disease s/p colectomy (now with colostomy), hypothyroidism, orthostatic hypotension, CVA in February 2024, and bilateral carotid artery stenosis who presents for preoperative cardiovascular evaluation prior to left TCAR on 06/27/[address] Vazquez... asymptomatic from a cardiovascular standpoint, however, her functional status is limited due to neuropathy. She does have cardiovascular risk factors and known peripheral arterial disease. It is therefore recommended that she undergo stress testing for further risk stratification prior to surgery. Unfortunately, given the close proximity of her surgery, we will not be able to arrange stress testing prior to the surgical date. Patient prefers to not reschedule her vascular surgery in order to accommodate stress testing. Would therefore assume her to be high cardiovascular risk for surgery..." - Per anesthesia consult by Anna Marie Onink PAC 06/22/24 (done prior to patient's Left TCAR done 06/27/24 at [facility]), "Case discussed in detail with Dr. Ochoa who advised patient is acceptable to proceed at [facility] as scheduled." > Grade view 2, Atkinson#2, ETT 7.0 at [facility]. No issues noted per post-op anesthesia progress note. Patient now scheduled for Right TCAR 08/10/24. Chart Review Chart Review: Acceptable Risk for Surgery and Patient NOT seen in Pre Admission Testing Consults Requested medical & cardiac Pulmonary ASA ASA4 Proposed Anesthesia Anesthesia Type: General Anesthesia Line Insertion: Arterial line Risk / Benefits Reviewed With: PT / POA / Parent / Guardian, Accepts Plan and Informed Consent Obtained History Surgery Operation Date: 08/10/24 13:00 Proposed Procedures p Right Transcarotid Artery Revascularization - Stan Vazquez MD Height/Weight Height: 5 ft 6 in Weight: 147.418 kg Allergies Allergy/AdvReac Type Severity Reaction Status Date / Time red dye Allergy Severe Anaphylaxis Verified 08/10/24 11:21 Medications Home Medications Medication Instructions Recorded Confirmed Last Taken metformin 500 mg tablet 500 mg PO BID 09/18/22 08/10/24 08/07/24 18:00 pravastatin 40 mg tablet 40 mg PO HS 09/18/22 08/10/24 08/09/24 18:00 levothyroxine 200 mcg tablet 200 mcg PO QAM 12/03/22 08/10/24 08/10/24 05:00 cholecalciferol (vitamin D3) 50 50 mcg PO QAM 02/27/23 08/10/24 08/07/24 mcg (2,000 unit) capsule (Vitamin D3) cyanocobalamin (vitamin B-12) 1,000 mcg PO QAM 02/27/23 08/10/24 08/07/24 1,000 mcg tablet (Vitamin B-12) levothyroxine 25 mcg tablet 25 mcg PO QAM 12/07/23 08/10/24 08/10/24 05:00 apixaban 5 mg tablet (Eliquis) 5 mg PO BID #60 tabs 12/09/23 08/10/24 08/07/24 18:00 acetaminophen 325 mg tablet 650 mg PO Q4H PRN Pain 03/07/24 08/10/24 08/09/24 21:00 aspirin 81 mg tablet,delayed 81 mg PO QAM #30 tabs 03/19/24 08/10/24 08/10/24 06:00 release torsemide 10 mg tablet 10 mg PO QAM 06/22/24 08/10/24 08/09/24 06:00 midodrine 5 mg tablet 5 mg PO QAM 06/27/24 08/10/24 08/10/24 06:00 famotidine 20 mg tablet (Pepcid) 20 mg PO BID PRN Acid Reflux 08/02/24 08/10/24 Unknown oxycodone 5 mg tablet 5 mg PO Q6H PRN pain 08/02/24 08/10/24 Unknown ticagrelor 90 mg tablet (Brilinta) 90 mg PO BID 08/02/24 08/10/24 08/10/24 06:00 Active Medications Generic Name Dose Route Start Last Admin Trade Name Freq PRN Reason Stop Dose Admin Sodium Chloride 1,000 mls @ 50 mls/hr 08/10/24 06:00 08/10/24 11:40 Nss IV 08/11/24 01:59 50 mls/hr .Q20H AILIN Administration NPO Date Last Intake of Fluids: 08/09/24 Time Last Intake of Fluids: 23:59 Date Last Intake of Solids: 08/09/24 Time Last Intake of Solids: 23:59 Past Medical History Medical History Atrial fibrillation Per records Acid reflux Anemia Hx of migraines No issues x years CHF (congestive heart failure) Follows with [facility] [place] 05/2024 Diabetes mellitus, type II History of rhabdomyolysis 01/2024 Per records, patient denies Pulmonary hypertension mild- 03/08/2024 echo History of DVT of lower extremity 11/2023 Carotid stenosis, bilateral History of CVA (cerebrovascular accident) 02/2024 -[facility] No deficits Family history of reaction to anesthesia Sister nausea/vomiting Cirrhosis Per records Patient unaware Depression Per records Patient denies 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 - current, s/p abx completion Morbid obesity with BMI of 50.0-59.9, adult Osteoarthritis Ileostomy in place Ulcerative colitis Hx - surgically removed and has ileostomy Hypothyroidism History of pulmonary embolism Taking Eliquis Heart murmur no significant valvular pathology on 03/08/2024 echo Exercise / Class Metabolic Activity II 4-5 Yardwork/Stairs/Walk up hill Past Family History Family History Sister Family history of reaction to anesthesia nausea/vomiting Past Surgical History Surgical History History of transcarotid artery revascularization (TCAR) Left 06/27/24 History of benign breast biopsy History of total left knee replacement (TKR) History of total right knee replacement (TKR) History of gastric bypass History of hernia surgery History of cholecystectomy History of appendectomy History of colonoscopy and ileoscopy History of esophagogastroduodenoscopy (EGD) History of colon resection performed about 20yrs ago d/t ulcerative colitis---has ileostomy History of tooth extraction History of wisdom tooth extraction History of thyroidectomy, total d/t nodules History of bilateral cataract extraction Past Anesthesia History No Hx of Anesthesia Complications and No Family Hx of Anesthesia Complications History of PONV No Hx of PONV and No Hx of Motion Sickness Social History Smoking Status: Never smoker Do You Dip or Chew Tobacco: No Hx Alcohol Use: No Alcohol type: wine alcohol intake frequency: holidays/special occasions only Hx Substance Use: No substance use type: does not use Physical Exam Vital Signs Last Vital Signs Temp 36.5 C 08/10/24 11:30 Pulse 88 08/10/24 11:30 Resp 22 08/10/24 11:30 BP 129/77 08/10/24 11:30 Pulse Ox 96 08/10/24 11:30 O2 Del Method Room Air 08/10/24 11:30 Constitutional + morbidly obese; no acute distress ENMT Mouth: no dentition abnormality Thyromental Distance: > or= 3.5 Finger Breadths Mallampati Class: III Neck normal visual inspection Respiratory normal respiratory effort; no respiratory distress Auscultation: lungs clear to auscultation bilaterally Cardiovascular Rate/Rhythm: regular rate and regular rhythm Heart Sounds: no murmur Musculoskeletal Spine: normal cervical ROM Psychiatric Orientation: alert and oriented x 3 Lab Results Anesthesia Preop Results Results Anesthesia Widget: PT 10.1 Seconds (9.0-12.0) 06/27/24 PTT 25 Seconds (21-31) 06/27/24 INR 0.9 (0.9-1.1) 06/27/24 HA1c 6.3 % (4.5-5.6) H 06/27/24 Blood Type A Positive 06/27/24 Antibody Screen NEGATIVE 06/27/24 Testing Laboratory Results 08/10/24 11:31 POC Glucose 137 H 07/28/24 WBC 8.96 H/H 10.7/34.8 PLATELETS 341 SODIUM 140 POTASSIUM 5.0 CHLORIDE 106 CO2 26 BUN 28 CREATININE 1.12 GLUCOSE 168 Electrocardiogram Date: 03/07/24 Sinus rhythm with frequent PACs vs wandering atrial pacemaker, rate 94 bpm Chest X-Ray Date: 03/07/24 No significant change compared to the prior study. No acute process. Echocardiogram Date: 03/08/24 EF 55-60% No LV regional wall motion abnormalities Moderate cLVH Mildly dilated RV Moderate biatrial dilation No significant valvular abnormalities Mild pulmonary hypertension, estimated RVSP 45 mmHg Type II diastolic dysfunction Cervical Spine Date: 02/13/24 CT 1. No acute cervical spine fracture or subluxation. Exam mildly compromised by artifact. 2. Moderate multilevel degenerative disc disease and facet arthrosis within the cervical spine. Other Testing Abdomen pelvis CT 4/10/24 1. No acute infectious or inflammatory findings are identified in the abdomen or pelvis. 2. There is postoperative change from subtotal colectomy and right lower quadrant ileostomy. No bowel obstruction is identified. 3. A parastomal hernia contains nonobstructed small bowel loops. 4. The liver is enlarged, steatotic, and shows morphologic changes of cirrhosis. 5. Trace pleural effusions. 6. Additional findings as above. Head and neck CTA 03/07/24 1. Severe calcified plaque within the bilateral carotid bifurcations and proximal internal carotid arteries. This results in up to 80% stenosis within the proximal right internal carotid artery and high-grade/critical stenosis of greater than 90% within the proximal left internal carotid artery. 2. The bilateral vertebral arteries are patent. 3. Mild stenosis within the proximal bilateral subclavian arteries. Brain MRI 03/07/24 1. Subcentimeter acute versus subacute lacunar infarct is noted within the splenium of the corpus callosum. 2. Involutional changes with chronic microvascular ischemic disease. 3. No abnormal enhancement. Chest CTA 12/07/23 1. Extensive bilateral pulmonary embolus as above. 2. There is no airspace consolidation or pleural effusion. 3. Cardiomegaly with evidence of pulmonary artery hypertension. 4. Cirrhotic liver morphology. 5. There is a 4.6 cm calcified extra-axial lesion in the left aspect of the thoracic spinal canal at T6-T7. This severely effaces the thecal sac, and could represent iatrogenic change or possibly a calcified extra-axial mass lesion such as a meningioma or nerve sheath tumor. Clinical correlation will be required. This is not an acute finding and and should be correlated with any prior outside chest imaging. Nonemergent follow up with neurology is advised. 6. Additional findings as above. Day of Procedure Evaluation. Date of Surgery August 10, 2024 Height/Weight Height: 5 ft 6 in Weight: 147.418 kg Vital Signs Last Vital Signs Temp 36.5 C 08/10/24 11:30 Pulse 88 08/10/24 11:30 Resp 22 08/10/24 11:30 BP 129/77 08/10/24 11:30 Pulse Ox 96 08/10/24 11:30 O2 Del Method Room Air 08/10/24 11:30 Allergies Allergy/AdvReac Type Severity Reaction Status Date / Time red dye Allergy Severe Anaphylaxis Verified 08/10/24 11:21 Medications Home Medications Medication Instructions Recorded Confirmed Last Taken metformin 500 mg tablet 500 mg PO BID 09/18/22 08/10/24 08/07/24 18:00 pravastatin 40 mg tablet 40 mg PO HS 09/18/22 08/10/24 08/09/24 18:00 levothyroxine 200 mcg tablet 200 mcg PO QAM 12/03/22 08/10/24 08/10/24 05:00 cholecalciferol (vitamin D3) 50 50 mcg PO QAM 02/27/23 08/10/24 08/07/24 mcg (2,000 unit) capsule (Vitamin D3) cyanocobalamin (vitamin B-12) 1,000 mcg PO QAM 02/27/23 08/10/24 08/07/24 1,000 mcg tablet (Vitamin B-12) levothyroxine 25 mcg tablet 25 mcg PO QAM 12/07/23 08/10/24 08/10/24 05:00 apixaban 5 mg tablet (Eliquis) 5 mg PO BID #60 tabs 12/09/23 08/10/24 08/07/24 18:00 acetaminophen 325 mg tablet 650 mg PO Q4H PRN Pain 03/07/24 08/10/24 08/09/24 21:00 aspirin 81 mg tablet,delayed 81 mg PO QAM #30 tabs 03/19/24 08/10/24 08/10/24 06:00 release torsemide 10 mg tablet 10 mg PO QAM 06/22/24 08/10/24 08/09/24 06:00 midodrine 5 mg tablet 5 mg PO QAM 06/27/24 08/10/24 08/10/24 06:00 famotidine 20 mg tablet (Pepcid) 20 mg PO BID PRN Acid Reflux 08/02/24 08/10/24 Unknown oxycodone 5 mg tablet 5 mg PO Q6H PRN pain 08/02/24 08/10/24 Unknown ticagrelor 90 mg tablet (Brilinta) 90 mg PO BID 08/02/24 08/10/24 08/10/24 06:00 Past Anesthesia History No Hx of Anesthesia Complications and No Family Hx of Anesthesia Complications History of PONV No Hx of PONV and No Hx of Motion Sickness NPO Date Last Intake of Fluids: 08/09/24 Time Last Intake of Fluids: 23:59 Date Last Intake of Solids: 08/09/24 Time Last Intake of Solids: 23:59 HCG & FBG Results 08/10/24 11:31 POC Glucose 137 H Home Medications Home Medications Medication Instructions Recorded Confirmed Last Taken metformin 500 mg tablet 500 mg PO BID 09/18/22 08/10/24 08/07/24 18:00 pravastatin 40 mg tablet 40 mg PO HS 09/18/22 08/10/24 08/09/24 18:00 levothyroxine 200 mcg tablet 200 mcg PO QAM 12/03/22 08/10/24 08/10/24 05:00 cholecalciferol (vitamin D3) 50 50 mcg PO QAM 02/27/23 08/10/24 08/07/24 mcg (2,000 unit) capsule (Vitamin D3) cyanocobalamin (vitamin B-12) 1,000 mcg PO QAM 02/27/23 08/10/24 08/07/24 1,000 mcg tablet (Vitamin B-12) levothyroxine 25 mcg tablet 25 mcg PO QAM 12/07/23 08/10/24 08/10/24 05:00 apixaban 5 mg tablet (Eliquis) 5 mg PO BID #60 tabs 12/09/23 08/10/24 08/07/24 18:00 acetaminophen 325 mg tablet 650 mg PO Q4H PRN Pain 03/07/24 08/10/24 08/09/24 21:00 aspirin 81 mg tablet,delayed 81 mg PO QAM #30 tabs 03/19/24 08/10/24 08/10/24 06:00 release torsemide 10 mg tablet 10 mg PO QAM 06/22/24 08/10/24 08/09/24 06:00 midodrine 5 mg tablet 5 mg PO QAM 06/27/24 08/10/24 08/10/24 06:00 famotidine 20 mg tablet (Pepcid) 20 mg PO BID PRN Acid Reflux 08/02/24 08/10/24 Unknown oxycodone 5 mg tablet 5 mg PO Q6H PRN pain 08/02/24 08/10/24 Unknown ticagrelor 90 mg tablet (Brilinta) 90 mg PO BID 08/02/24 08/10/2424 06:00 Active Medications Generic Name Dose Route Start Last Admin Trade Name Carl PRN Reason Stop Dose Admin Sodium Chloride 1,000 mls @ 50 mls/hr 08/10/24 06:00 08/10/24 11:40 Nss IV 08/11/24 01:59 50 mls/hr .Q20H AILIN Administration Exercise / Class Metabolic Activity Metabolic Activity: II 4-5 Yardwork/Stairs/Walk up hill Physical Exam Constitutional: + morbidly obese; no acute distress Mouth: no dentition abnormality Thyromental Distance: > or= 3.5 Finger Breadths Mallampati Class: III Neck: + visual inspection normal Respiratory: + respiratory effort normal and + clear to auscultation bilaterally; no respiratory distress Cardiovascular: + regular rate and + regular rhythm; no murmur Musculoskeletal: no limited cervical ROM Psychiatric: + alert and + oriented x 3 ASA ASA4 Proposed Anesthesia Proposed Anesthesia: General Anesthesia Line Insertion: Arterial line Risk / Benefits Reviewed With: PT / POA / Parent / Guardian, Accepts Plan and Informed Consent Obtained
--- NOTE | 2024-08-10 09:35 | History & Physical Report ---
Date of Service August 10, 2024 Assessment & Plan (1) Stenosis of right carotid artery: Plan: Patient is admitted for a right tcar. I have discussed the risks options and benefits of the procedure with the patient. The patient understands the risks options and benefits and agrees to the procedure. History of Present Illness Chief Complaint: Left carotid stenosis Primary Care Provider: Tanisha Reyes MD 79 yo f with multiple medical problems, including arthritis, hx of DVT/PE, liver cirrhosis, CKD, vertigo, UC s/p proctatectomy/ colectomy with colostomy, open draining sinus from surgery, GERD, hypothyroidism, CHF, DMII, admitted after severe dizziness/N/V at home and found to have carotid stenosis, seen earlier this year for same. Pt denies any prior knowledge. Review of her chart since Nov 30 indicated multiple admissions for similar sx. Admission in Nov revealed DVT/PE with R heart strain, apparently improved upon admission in January 2024, although still with slightly reduced EF. Pt states she has never seen a field radio technician as outpt, she was seen during admission here only. States she "didn't get around to setting that up yet." She has not been consistent in her outpt care. She does not drive and relies on her daughter to drive her places. Has had chronic dizziness, sometimes associated with N/V, for many months. She has had near syncopal events and had some falls at home. Denies any lateralizing sx, amaurosis, aphasia, facial droop. She had an uneventful tcar of her left carotid and has severe stenosis of her right carotid artery. Allergies Allergy/AdvReac Type Severity Reaction Status Date / Time red dye Allergy Severe Anaphylaxis Verified 08/02/24 14:23 Home Medications Medication Instructions Recorded Confirmed Type metformin 500 mg tablet 500 mg PO BID 09/18/22 08/02/24 History pravastatin 40 mg tablet 40 mg PO HS 09/18/22 08/02/24 History levothyroxine 200 mcg tablet 200 mcg PO QAM 12/03/22 08/02/24 History cholecalciferol (vitamin D3) 50 50 mcg PO QAM 02/27/23 08/02/24 History mcg (2,000 unit) capsule (Vitamin D3) cyanocobalamin (vitamin B-12) 1,000 mcg PO QAM 02/27/23 08/02/24 History 1,000 mcg tablet (Vitamin B-12) levothyroxine 25 mcg tablet 25 mcg PO QAM 12/07/23 08/02/24 History apixaban 5 mg tablet (Eliquis) 5 mg PO BID #60 tabs 12/09/23 08/02/24 Rx acetaminophen 325 mg tablet 650 mg PO Q4H PRN Pain 03/07/24 08/02/24 History aspirin 81 mg tablet,delayed 81 mg PO QAM #30 tabs 03/19/24 08/02/24 Rx release torsemide 10 mg tablet 10 mg PO QAM 06/22/24 08/02/24 History midodrine 5 mg tablet 5 mg PO QAM 06/27/24 08/02/24 History famotidine 20 mg tablet (Pepcid) 20 mg PO BID PRN Acid Reflux 08/02/24 08/02/24 History oxycodone 5 mg tablet 5 mg PO Q6H PRN pain 08/02/24 08/02/24 History ticagrelor 90 mg tablet (Brilinta) 90 mg PO BID 08/02/24 08/02/24 History Past Med/Surg History Problem List (Updated 08/10/24 @ 09:38 by Stan Vazquez MD) Stenosis of right carotid artery Vertigo 03/07/24 Mass of spine 02/15/24 Urge incontinence Arthritis Encounter for pre-operative examination Medical History Atrial fibrillation Per records Acid reflux Anemia Hx of migraines No issues x years CHF (congestive heart failure) Follows with [facility] [place] cardio 05/2024 Diabetes mellitus, type II History of rhabdomyolysis 01/2024 Per records, patient denies Pulmonary hypertension mild- 03/08/2024 echo History of DVT of lower extremity 11/2023 Carotid stenosis, bilateral History of CVA (cerebrovascular accident) 02/2024 -[facility] No deficits Family history of reaction to anesthesia Sister nausea/vomiting Cirrhosis Per records Patient unaware Depression Per records Patient denies 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 - current, s/p abx completion Morbid obesity with BMI of 50.0-59.9, adult Osteoarthritis Ileostomy in place Ulcerative colitis Hx - surgically removed and has ileostomy Hypothyroidism History of pulmonary embolism Taking Eliquis Heart murmur no significant valvular pathology on 03/08/2024 echo Surgical History History of transcarotid artery revascularization (TCAR) Left 06/27/24 History of benign breast biopsy History of total left knee replacement (TKR) History of total right knee replacement (TKR) History of gastric bypass History of hernia surgery History of cholecystectomy History of appendectomy History of colonoscopy and ileoscopy History of esophagogastroduodenoscopy (EGD) History of colon resection performed about 20yrs ago d/t ulcerative colitis---has ileostomy History of tooth extraction History of wisdom tooth extraction History of thyroidectomy, total d/t nodules History of bilateral cataract extraction Family History Sister Family history of reaction to anesthesia nausea/vomiting Social History Smoking Status: Never smoker Second Hand Exposure: No; Do You Dip or Chew Tobacco: No; Tobacco Cessation Education Requested by Patient: No Hx Alcohol Use: No Hx Substance Use: No Preferred Language: Danish Communication Ability: Effective Driver Required: No Beliefs That Will Affect Care: None Current Living Situation: Family Current Living Situation Comment: [place] Other Information That Helps Us Care for You: No Feels Safe at Home: Yes Safety Concerns: Feels Safe At This Time Assistive Devices: Glasses and Walker Review of Systems All systems reviewed & are unremarkable except as noted in HPI & below Physical Exam Physical Exam: Constitutional: WD/WN, vitals as a arvind + morbidly o bese and cooperati ve; not in distres s ENMT: Ears: no hearing i mpairment Neck: trachea midline Respiratory: normal respiratory effort, lungs miracle ar to auscultation Auscultation: + diminished lung so unds Cardiovascular: Rate/Rhythm: regul ar rate and regula r rhythm Vessels: posterior tibial pulses present, do rsalis pedis pulse s present and radi al pulses present; + abnormal periph eral pulses Extre mities: normal cap illary refill and + edema Gastrointestinal ( Abdomen): Inspection/Auscult ation: abdomen nor mal to inspection, normal bowel soun ds and + abdominal surgical scar (mu ltiple, ileostomy present. draining sinus under ileos kael dressing. ) Percussion/Palpati on: abdomen soft; abdomen nontender Musculoskeletal: no cyanosis or clu bbing, extremities motor strength 5/ 5 Skin: no rashes, warm an d dry Neurologic: moves all extremit ies and awake; no focal motor defici ts and not confuse d Psychiatric: A+Ox3, euthymic af fect
[~2024-08-10 11:07] MED LIST: ACETAMINOPHEN 1000 MG/100 ML IV IV ONE; GLYCOPYRROLATE 0.2 MG/ML VIAL ONE; General Order Problem(s) SCH; LARYING-O-JET KIT (LTA) ONE; LIDOCAINE 2% 2 ML VIAL/AMP(20MG/ML) INFIL ONE; PHENYLEPHRINE HCL 10 MG/ML VIAL ONE; PROPOFOL IV EMULSION 10 MG/ML 20 ML VIAL IV ONE; ROCURONIUM BROMIDE 10 MG/ML 5 ML VIAL IV ONE; fentaNYL citrate PF 100 MCG/2 ML VIAL ONE
[2024-08-10] MEDS ORDERED: fentaNYL citrate PF 100 MCG/2 ML VIAL IV PRN (11:38)
[2024-08-10] MEDS ORDERED: PROMETHAZINE HCL 6.25 MG in SODIUM CHLORIDE 0.9% 50 ML IV PRN (11:38)
[2024-08-10] MEDS ORDERED: ATROPINE SULFATE 0.1 MG/ML 10ML SYR IV PRN (11:38)
[2024-08-10] MEDS: SODIUM CHLORIDE 0.9% 1,000 ML IV SCH (11:40)
[2024-08-10 11:55] LABS: Calcium 8.3 mg/dl (8.6-10.3); Creatinine Clr Calc Pharmacy 62.8 ml/min; Est GFR (African American) 54.9 ml/min; Est GFR (Non-African American) 47.3 ml/min; Potassium 4.1 mmol/L (3.5-5.1)
--- NOTE | 2024-08-10 12:24 | History & Physical Bridge Note ---
Date of Service August 10, 2024 History & Physical Bridge Note I have examined the patient, reviewed the History & Physical and in the interval since the performance of the History & Physical I have noted the following changes of clinical significance: no changes noted
[2024-08-10] MEDS: ceFAZolin 3000MG 3,000 MG/72.5 ML BAG IV SCH (12:56)
[2024-08-10] MEDS ORDERED: HEPARIN SOD (PORCINE) 1000 UNIT/ML ONE ×2 (13:51→14:22)
[2024-08-10] MEDS ORDERED: PROTAMINE SULFATE 10 MG/ML 5 ML VIAL IV ONE (14:34)
[2024-08-10] MEDS ORDERED: SUGAMMADEX SODIUM 200 MG/2 ML VIAL IV ONE (14:34)
[2024-08-10] MEDS: VISIPAQUE IV ONE (14:37)
[2024-08-10] MEDS: HEPARIN SOD (PORCINE) 1000 UNIT/ML ONE (14:37)
[2024-08-10] MEDS: ceFAZolin 330 MG/ML 1 GM VIAL ONE (14:46)
[2024-08-10] MEDS: ARISTA ABSORBABLE HEMOSTAT 3GM TOP ONE (14:46)
[2024-08-10] MEDS ORDERED: PROPOFOL IV EMULSION 10 MG/ML 20 ML VIAL IV ONE (14:52)
[2024-08-10] MEDS: GELATIN SPONGE SZ 100 ONE (15:04)
[2024-08-10] MEDS: BUPIVACAINE/EPINEPHRINE 0.5% MPF 1:200,000 30 ML VIAL ONE (15:04)
[2024-08-10] MEDS: THROMBIN FOR SOLN 20000 UNIT KIT ONE (15:04)
--- NOTE | 2024-08-10 15:11 | Post Operative Brief Note ---
Immediate Post Op Note Date of Surgery August 10, 2024 Pre & Post Diagnosis Operation Date: 08/10/24 13:00 Pre-Op Diagnosis: Bilateral Carotid Artery Stenosis Post-Op Diagnosis: Bilateral Carotid Artery Stenosis I identified the patient and participated in the time-out.: Yes Procedure Operation Date: 08/10/24 13:00 Actual Procedures p Right Transcarotid Artery Revascularization, Ultrasound Right Common Femoral Vein(Right) - Stan Vazquez MD Surgeon Stan Vazquez MD Creative Writing Professor MD Ginette SyedMinarchick,PAC Estimated Blood Loss 10 Findings Consistent with Post-Op Diagnosis Anesthesia Type General Complications none Disposition Accompanied Patient To Recovery: No Disposition: Recovery Room
--- NOTE | 2024-08-10 15:26 | Operative Report ---
Post Operative Report Pre & Post Diagnosis Operation Date: 08/10/24 13:00 Pre-Op Diagnosis: Bilateral carotid artery stenosis s/p prior left carotid artery stent Post-Op Diagnosis: Bilateral carotid artery stenosis s/p prior left carotid artery stent I identified the patient and participated in the time-out.: Yes Procedure Operation Date: 08/10/24 13:00 Actual Procedures p Right Transcarotid Artery Revascularization, Ultrasound Right Common Femoral Vein(Right) - Stan Vazquez MD Surgeon Stan Vazquez MD Boat Dispatcher Briseyda Rosales MD; Clarisse Ramos PA-C Estimated Blood Loss 10 Findings See Below Severe right carotid artery stenosis improved after balloon angioplasty and stent. Patient had good wall apposition of the stent with brisk blood flow visualized on completion angiogram. Specimens None Anesthesia Type General Complications None Disposition Accompanied Patient To Recovery: Yes Indications 79 year old female with history of bilateral carotid artery stenosis and s/p prior left carotid artery revascularization. Patient has known severe stenosis of the right carotid artery and presented for revascularization. After risks and benefits of the procedure were discussed, patient consented to the surgery. Description of Procedure The patient was brought to the operating room, where lines were placed and general anesthesia was accomplished by anesthesia team. A shoulder roll was placed and the neck was rotated towards the left side of the patient. The right neck and left groin were prepped and patient was draped in the usual sterile fashion. A timeout was performed identifying the correct patient by name, procedure, and location of procedure and all were in agreement. A 4cm transverse incision was made between the sternal and clavicular heads of the sternocleidomastoid muscle. The muscle heads were retracted to each side and the carotid sheath was identified. Using blunt dissection, the carotid sheath was opened and 3cm of common carotid artery (CCA) were isolated. Umbilical tape was placed around the proximal CCA under direct visualization. A 5-0 prolene U- stitch was pre-placed in the anterior wall of the CCA to facilitate hemostasis after removal of the arterial sheath at completion of the procedure. The patient was given 10,000 units of IV heparin. The contralateral (left) common femoral vein was accessed under ultrasound guidance, using a micropuncture needle and a wire and sheath were placed using modified Seldinger technique. The venous return sheath was advanced into the common femoral vein over the 0.035" wire. Blood was aspirated from the flow line and the sheath was flushed with heparinized saline.The sheath was secured to the patient's skin with a 2-0 silk stitch to maintain position in the vessel. A 4- Sammarinese non-stiffened micropuncture set was used, puncturing the artery with a 21G needle through the pre-placed U-stitch while holding gentle traction on the umbilical tape to stabilize the CCA within the incision. The micropuncture wire was advanced 3-4cm into the CCA and the 21G needle removed. The micropuncture sheath was advanced 3cm into the CCA and the wire and dilator were removed. A cerebral angiogram was obtained after ensuring there were no air bubbles in the system. The J-tipped guidewire was inserted and we stopped short of the plaque at the level of the common carotid artery. After micropuncture sheath removal, the transcarotid arterial sheath was advanced to the 3cm marker and the 0.035" wire and dilator were removed. Arterial sheath position was assessed under fluoroscopy. The arterial sheath was sutured to the patient at two sites. ACT obtained was 226. An additional 3,000 units of IV heparin were administered. Re- check ACT was 220. At this time, we administered an additional 3,000 units of IV heparin through the groin venous sheath. The Flow Controller was connected to the transcarotid arterial sheath, prepared by passively allowing arterial blood to backfill the line and then it was connected to the venous return sheath. The CCA was clamped proximally with a Luis tourniquet to ensure active flow reversal. Heparinized saline was delivered into the venous flow line to confirm adequate flow reversal. A TCAR timeout was performed, heart rate was >70bpm and systolic BP was >140mmHg. Patient had been pretreated with glycopyrrolate and atropine was available. The lesion was crossed with an 0.014" guidewire and pre-dilation balloon angioplasty was performed with a 5x35mm [employer] rapid exchange balloon to 14 atmospheres for about 4 seconds. A 9-7x30mm [id number] transcarotid stent was placed. A completion angiogram was performed showing appropriate stent position with good wall apposition and no need for post-dilation balloon angioplasty. At TCAR case completion, antegrade flow was restored by releasing the tourniquet on the CCA and closing the stopcocks to the flow lines. The total clamp time was 9 minutes. The transcarotid arterial sheath was removed and the pre-placed suture was tied. 25mg of protamine were given. The ACT was still therapeutic and we gave an additional 15mg of protamine. A repeat ACT was obtained and was at goal for sheath removal. The venous return sheath was removed and hemostasis achieved with manual compression. The neck incision was irrigated with antibiotic solution and was hemostatic before closure. 30cc of 0.25% marcaine with epinephrine were used for local anesthesia around skin edges. The platysma was approximated with 3-0 Vicryl running suture and the skin was closed with 4-0 running Vicryl suture and covered with Dermabond. The patient tolerated the procedure well and was extubated in the operating room. He was moving all four extremities to command prior to transfer to the recovery room. All counts were correct at the end of the procedure. Fluoroscopy time was 2.9 minutes, radiation dose was 66 mGy and 12cc of contrast were used. Dr. Vazquez was present and scrubbed for the entire procedure. I attest to the content of the Intraoperative Record and any orders documented therein. Any exceptions are noted below.
[2024-08-10] MEDS: ePHEDrine sulfate 50 MG/ML AMP IV PRN (15:49)
[2024-08-10] MEDS ORDERED: oxyCODONE HCL IR 5 MG TAB (IMMEDIATE RELEASE) PO PRN (16:07)
[2024-08-10] MEDS ORDERED: STAT IV Infusion **Titration per Protocol STA (16:07)
[2024-08-10] MEDS ORDERED: PHARMACY GLYCEMIC MGMT CONSULT PRN (16:07)
[2024-08-10] MEDS ORDERED: oxyCODONE/ACETAMINOPHEN 5mg/325mg TAB PO PRN (16:07)
[2024-08-10] MEDS ORDERED: FAMOTIDINE 20 MG TAB PO PRN (16:07)
[2024-08-10] MEDS ORDERED: DEXTROSE 50% 50 ML SYRINGE IV PRN (16:45)
[2024-08-10] MEDS ORDERED: GLUCOSE 40% GEL 15 GM TUBE PO PRN (16:45)
[2024-08-10] MEDS ORDERED: GLUCOSE 10 TAB/TUBE PO PRN (16:45)
[2024-08-10] MEDS ORDERED: CARBOHYDRATES FOR HYPOGLYCEMIA PO PRN (16:45)
[2024-08-10] MEDS ORDERED: GLUCAGON FOR INJ 1 MG VIAL IM PRN (16:45)
[2024-08-10] MEDS: PHENYLEPHRINE/NSS 25 MG/250 ML BAG IV PRN (16:51)
--- NOTE | 2024-08-10 16:55 | Anesthesiology Progress Note ---
Date of Service August 10, 2024 Anesthesia Post Procedure Vital Signs Vital Signs: Temp Pulse Pulse Resp BP BP Pulse Ox 08/10/24 16:50 83 20 91/60 L 98 08/10/24 16:40 83 17 91/60 L 98 08/10/24 16:30 84 15 97/57 L 95 08/10/24 16:20 85 17 92/54 L 92 08/10/24 16:10 92 H 19 96/56 L 92 08/10/24 16:00 83 17 97/64 L 96 08/10/24 15:50 82 14 115/58 L 94 08/10/24 15:40 82 14 103/65 96 08/10/24 15:40 81 15 104/62 95 08/10/24 15:32 36.0 C L 85 14 128/72 95 08/10/24 11:30 36.5 C 88 22 143/71 H 129/77 96 O2 Del Method O2 Flow Rate 08/10/24 16:50 Nasal Cannula 2 08/10/24 16:40 Nasal Cannula 2 08/10/24 16:30 Nasal Cannula 2 08/10/24 16:20 Room Air 08/10/24 16:10 Room Air 08/10/24 16:00 Room Air 08/10/24 15:50 Room Air 08/10/24 15:40 Room Air 08/10/24 15:40 Oxymask 5 08/10/24 15:32 Oxymask 5 08/10/24 11:30 Room Air Transfer of Care Handoff Completed per policy Notes Mental Status: alert / awake / arousable and participated in evaluation Patient Amnestic to Procedure: Yes Nausea / Vomiting: adequately controlled Pain: adequately controlled Airway Patency, RR, SpO2: stable & adequate BP & HR: stable & adequate Hydration State: stable & adequate Anesthetic Complications: no major complications apparent and Pt Satisfied with anesthetic care
[2024-08-10] MEDS: INSULIN ASPART PER UNIT CHARGE SC SCH (17:51)
[2024-08-10] MEDS: LACTATED RINGER'S 1,000 ML IV SCH (17:54)
[2024-08-10] MEDS: ACETAMINOPHEN 325 MG TAB PO PRN (17:54)
[2024-08-10] MEDS: ceFAZolin 2000MG 2,000 MG/15 ML SYR IV SCH (18:47)
--- OUTSIDE RECORDS SUMMARY | 2024-08-10 18:47 | External Medical Summary | Continuity of Care Document ---
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) - Discharge Disposition: Home or Self Care Attending Physician: MD Lucy, Brandan Sahu Referring Physician: MD Lucy, Brandan Sahu Allergies, Adverse Reactions, Alerts Substance Criticality Severity Reaction Reaction Severity Status ciprofloxacin dizzy, vomitting Active red dye Unable to assess criticality Severe Anaphylaxis Active Immunizations Given and Recorded Vaccine Date [...] Historical information-source unspecified Medications Align Start: 07/10/22 3:11:00 PM EDT, 4 mg =, PO, Daily Start Date: 07/10/22 Status: Ordered Aspir 81 oral delayed release tablet Start: 05/31/24 4:08:00 PM EDT, 1 tab, PO, Daily, Disp# 90 tab, Refills: 3, other Start Date: 05/31/24 Stop Date: 05/26/25 Status: Ordered Augmentin 875 mg-125 mg oral tablet Start: 06/15/24 10:07:00 AM EDT, amoxicillin 1 tab, PO, q12h, Disp# 14, Refills: 1, Pharmacy: [facility] 2229 Start Date: 06/15/24 Stop Date: 06/29/24 Status: Ordered Brilinta (ticagrelor) 90 mg oral tablet Start: 06/15/24 10:08:00 AM EDT, 1 tab, PO, bid, Disp# 60 tab, Refills: 11, Pharmacy: [facility] [address]229 Start Date: 06/15/24 Status: Ordered Calcium 600+D Start: 07/10/22 3:11:00 PM EDT, 1 tab po bid Start Date: 07/10/22 Status: Ordered Eliquis 5 mg oral tablet Start: 04/21/24 3:00:00 PM EDT, 1 tab, PO, bid, Disp# 60 tab, Refills: 3, TAKE 1 TABLET BY MOUTH IN THE MORNING AND AT BEDTIME, Pharmacy: [facility] 2229 Start Date: 04/21/24 Stop Date: 08/19/24 Status: Ordered levothyroxine 75 mcg (0.075 mg) oral tablet Start: 08/02/24 4:51:00 PM EDT, 3 tab, PO, Daily, Disp# 270 tab, Pharmacy: [facility] Start Date: 08/02/24 Stop Date: 10/31/24 Status: Ordered metFORMIN 500 mg oral tablet Start: 04/21/24 2:59:00 PM EDT, 1 tab, PO, bid, Disp# 180 tab, Refills: 2, Pharmacy: [facility] [address]229 Start Date: 04/21/24 Stop Date: 01/16/25 Status: Ordered midodrine 5 mg oral tablet Start: 04/22/24 7:13:00 PM EDT, 1 tab, PO, Daily, Disp# 30 tab, Pharmacy: [facility] 2229 Start Date: 04/22/24 Stop Date: 05/22/24 Status: Ordered pravastatin 40 mg oral tablet Start: 04/21/24 2:59:00 PM EDT, 1 tab, PO, Daily, Disp# 90 tab, Refills: 1, Pharmacy: [facility] Start Date: 04/21/24 Stop Date: 10/18/24 Status: Ordered torsemide 10 mg oral tablet Start: 05/31/24 4:10:00 PM EDT, 1 tab, PO, Daily, Disp# 90 tab, Refills: 3, other Start Date: 05/31/24 Stop Date: 05/26/25 Status: Ordered Vitamin B12 Start: 07/10/22 3:10:00 PM EDT, 1,000 mcg =, PO, Daily Start Date: 07/10/22 Status: Ordered Vitamin D3 50 mcg (2000 intl units) oral tablet Start: 05/11/24 9:37:00 AM EDT, 1 tab, PO, Daily Start Date: 05/11/24 Status: Ordered Problem List Condition Confirmation Course Effective Dates Status H ealth Status Informant Anemia Confirmed Active Generalized weakness Confirmed Active Carotid stenosis, bilateral Confirmed Active Cirrhosis Confirmed Active CHF (congestive heart failure) Confirmed Active Crohn's disease of small intestine with fistula Confirmed Active Diabetes Confirmed Active Hypothyroidism Confirmed Active Fistula Confirmed Active 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 (C DIF FICILE TOXIN) 08/03/24 Extended Enteric Pathogen Panel, Stool ( EXTENDED ENTERIC PATHOGEN PANEL) 08/03/24 Parasite Panel, Stool (PARASITE PANEL) Microbiology Reports TEST:Parasite Panel STATUS:Auth (Verified) BODY SITE: SOURCE:Stool COLLECTED DATE/TIME:08/03/24 3:00 PM Status FINAL 08/04/2024 TEST:Extended Enteric Pathogen Panel STATUS:Auth (Verified) BODY SITE: SOURCE:Stool COLLECTED DATE/TIME:08/03/24 3:00 PM Molecular Detection No bacterial pathogens detected. This specimen has been tested for: Shigella spp./EIEC DNA, Shiga-toxin producing genes, Campylobacter spp. (jejuni and coli) DNA, and Salmonella spp. DNA. Any pathogen not listed as positive above has not been detected. This specimen has been tested for: Plesiomonas shigelloides DNA, Vibrio (vulnificus, parahaemolyticus, cholerae) DNA, Enterotoxigenic E. coli DNA, and Yersinia enterocolitica DNA. Any pathogen listed above has not been detected. TEST:C.Diff Toxin STATUS:Modified/Amended/Corrected BODY SITE: SOURCE:Stool COLLECTED DATE/TIME:08/03/24 3:00 PM Culture No Clostridium difficile toxin genes detected. Social History Social History Type Response Smoking Status Never smoked cigaret fadi Sex Sex Representation Female (finding) Patient Care team information Care Team Personnel Name: MD Reyes Margaret Position: Resident Member Role: Primary Care Provider Address: [address] [address] [place] Name: DO Collazo Sameer Position: Resident Member Role: Lifetime Relationship Address: [address] Care Team Related Persons Name: NOHELIA HOLLINS
--- OUTSIDE RECORDS SUMMARY | 2024-08-10 18:47 | External Medical Summary | Continuity of Care Document ---
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(Discharge Diagnosis) - 07/27/24 Enterocutaneous fistula(Discharge Diagnosis) - 07/28/24 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) - Body mass index [BMI] 50.0-59.9, adult(Discharge Diagnosis) - 07/28/24 Discharge Disposition: Home or Self Care Attending Physician: MD Ayala Ronaldo Paolo Allergies, Adverse Reactions, Alerts Substance Criticality Severity [...] PO, q12h, Disp# 14, Refills: 1, Pharmacy: [facility] 2229 Start Date: 06/15/24 Stop Date: 06/29/24 Status: Ordered Brilinta (ticagrelor) 90 mg oral tablet Start: 06/15/24 10:08:00 AM EDT, 1 tab, PO, bid, Disp# 60 tab, Refills: 11, Pharmacy: [facility] [address] Start Date: 06/15/24 Status: Ordered Calcium 600+D Start: 07/10/22 3:11:00 PM EDT, 1 tab po bid Start Date: 07/10/22 Status: Ordered Eliquis 5 mg oral tablet Start: 04/21/24 3:00:00 PM EDT, 1 tab, PO, bid, Disp# 60 tab, Refills: 3, TAKE 1 TABLET BY MOUTH IN THE MORNING AND AT BEDTIME, Pharmacy: [facility] [address]229 Start Date: 04/21/24 Stop Date: 08/19/24 Status: Ordered levothyroxine 200 mcg (0.2 mg) oral tablet Start: 05/31/24 4:21:00 PM EDT, 1 tab, PO, Daily, Disp# 30 tab, Refills: 4, Note to Pharmacy: patienttakes 225 mcg, fill both 200 mcg and 25 mcg tabs, Pharmacy: [facility] 2[address] Start Date: 05/31/24 Stop Date: 10/28/24 Status: Ordered levothyroxine 25 mcg (0.025 mg) oral tablet Start: 06/15/24 10:08:00 AM EDT, 1 tab, PO, Daily, Disp# 30 tab, Refills: 11, Note to Pharmacy: patient to take 225 mg of levothyroxine., Pharmacy: [facility] 2229 Start Date: 06/15/24 Stop Date: 06/10/25 Status: Ordered metFORMIN 500 mg oral tablet Start: 04/21/24 2:59:00 PM EDT, 1 tab, PO, bid, Disp# 180 tab, Refills: 2, Pharmacy: [facility] [address] Start Date: 04/21/24 Stop Date: 01/16/25 Status: Ordered midodrine 5 mg oral tablet Start: 04/22/24 7:13:00 PM EDT, 1 tab, PO, Daily, Disp# 30 tab, Pharmacy: [facility] [address] Start Date: 04/22/24 Stop Date: 05/22/24 Status: Ordered pravastatin 40 mg oral tablet Start: 04/21/24 2:59:00 PM EDT, 1 tab, PO, Daily, Disp# 90 tab, Refills: 1, Pharmacy: [facility] [address] Start Date: 04/21/24 Stop Date: 10/18/24 Status: [...] PO, Daily Start Date: 05/11/24 Status: Ordered Mental Status 07/28/24 Barriers to Learning one year None evide nt Mandatory Health Literacy Documentation Yes Health Literacy Communication Barriers N ever Primary Language Greek Problem List Condition Confirmation Course Effective Dates [...] Confirmed Active Vitamin D deficiency Confirmed Active Diagnosis Diagnosis Type Effective Dates Health Status Clinical Service Informant 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 CMP 10/2020 gluc 113 H, CMP 01/2022 [id number] H, Hgb a1c 6.2 H, 9bilateral knees Results Laboratory List Name Date C Reactive Protein, Quantitation (CRP QU ANTITATION) 07/28/24 Complete Blood Count w Differential (CBC ,DIFFH) 07/28/24 Comprehensive Metabolic Panel (COMP META B PANEL) 07/28/24 Erythrocyte Sedimentation Rate (SEDIMENT ATION RATE) 07/28/24 Folic Acid Level (FOLIC ACID) 07/28/24 Hepatitis B Core Antibody, IgG and IgM ( HEP B CORE AB G+M) 07/28/24 Hepatitis B Surface Antibody (HEP B SURF AB) 07/28/24 Hepatitis B Surface Antigen (HEP B SURF AG) 07/28/24 Hepatitis C Antibody (HEP C AB) 07/28/24 Magnesium Level (MAGNESIUM) 07/28/24 Phosphorus Level (PHOSPHORUS) 07/28/24 Quantiferon Gold TB (QUANTIFERON GOLD TB ) 07/28/24 Vitamin B12 Level (VITAMIN B12) 07/28/24 Vitamin D, 25-Hydroxy Level, Total (25-H YDROXY VITAMIN D) 07/28/24 Most recent to oldest [Reference Range]: 1 CReacProt [<0.50 mg/dL] 0.66 mg/dL *HI* (07/28/24 2:21 PM) eGFR CKD-EPI [>60 mL/min/1.73 m2] 51 mL/ min/1.73 m2 1 *LOW* (07/28/24 2:21 PM) Vitamin D, 25-Hydroxy [30-100 ng/mL] 34 ng/mL 2 (07/28/24 2:21 PM) Quantiferon Gold TB. [NEG] NEGATIVE 3 *Unknown* (07/28/24 2:21 PM) HBsAb Concentration [NR mIU/mL] NONREACT YANIRA mIU/mL (07/28/24 2:21 PM) Estimated CrCl 62.12 mL/min (07/28/24 3:12 PM) MPV [9.0-12.2 fL] 10.8 fL (07/28/24 2:21 PM) Immature Gran% 0.8 % (07/28/24 2:21 PM) Neut% 73.3 % (07/28/24 2:21 PM) Lymph% 16.3 % (07/28/24 2:21 PM) Pitkin% 8.0 % (07/28/24 2:21 PM) Baso% 0.6 % (07/28/24 2:21 PM) Eos% 1.0 % (07/28/24 2:21 PM) Immat Gran, Abs [0-0.4 K/uL] 0.07 K/uL (07/28/24 2:21 PM) Neut, Abs [2.0-7.7 K/uL] 6.57 K/uL (07/28/24 2: PM) Lymph, Abs [1.0-3.4 K/uL] 1.46 K/uL (07/28/24 2:21 PM) Pitkin, Abs [0-1.0 K/uL] 0.72 K/uL (07/28/24 2: PM) Baso, Abs [0-0.1 K/uL] 0.05 K/uL (07/28/24 2:21 PM) Eos, Abs [0-0.5 K/uL] 0.09 K/uL (07/28/24 2: PM) Type of Diff: AUTO *Unknown* (07/28/24: PM) RDW [11.5-14.2 %] 14.6 % *HI* (07/28/24: PM) Anion Gap [5-14 mmol/L] 8 mmol/L (07/28/24: PM) Alb [3.5-5.0 g/dL] 4.0 g/dL (07/28/24: PM) Alk Phos [38-126 unit/L] 128 unit/L *HI* (07/28/24: PM) ALT [<35 unit/L] 20 unit/L (07/28/24: PM) AST [15-46 unit/L] 25 unit/L (07/28/24: PM) B12 [211-946 pg/mL] 1077 pg/mL *HI* (07/28/24: PM) BUN [7-20 mg/dL] 28 mg/dL *HI* (07/28/24: PM) Ca [8.4-10.2 mg/dL] 9.1 mg/dL (07/28/24 2: PM) Cl- [96-107 mmol/L] 106 mmol/L (07/28/24: PM) HCO3 [22-30 mmol/L] 26 mmol/L (07/28/24 2: PM) HBcAb [NR] NONREACTIVE *Unknown* (07/28/24 2: PM) Cret [0.60-1.00 mg/dL] 1.12 mg/dL *HI* (07/28/24 2:21 PM) ESR [0-50 mm/hr] 67 mm/hr 4 *HI* (07/28/24 2:21 PM) Folate [>7.2 ng/mL] 9.0 ng/mL (07/28/24 2:21 PM) Glu [74-106 mg/dL] 168 mg/dL *HI* (07/28/24 2:21 PM) HBsAg [NR] NONREACTIVE *Unknown* (07/28/24 2:21 PM) HBsAb [NR] NONREACTIVE *Unknown* (07/28/24 2:21 PM) Hct [35-44 %] 34.8 % *LOW* (07/28/24 2:21 PM) HCV Ab [NR] NONREACTIVE *Unknown* (07/28/24 2: PM) Hgb [11.7-15.0 g/dL] 10.7 g/dL *LOW* (07/28/24 2:21 PM) K [3.5-5.1 mmol/L] 5.0 mmol/L (07/28/24 2: PM) MCH [28-33 pg] 28.2 pg (07/28/24 2:21 PM) MCHC [32-36 g/dL] 30.7 g/dL *LOW* (07/28/24 2:21 PM) MCV [81-96 fL] 91.8 fL (07/28/24 2:21 PM) Mg [1.6-2.3 mg/dL] 1.7 mg/dL 5 (07/28/24 2:21 PM) Na [137-145 mmol/L] 140 mmol/L (07/28/24 2:21 PM) PO4 [2.5-4.5 mg/dL] 4.5 mg/dL 6 (07/28/24 2:21 PM) Plts [150-350 K/uL] 341 K/uL (07/28/24 2:21 PM) RBC [3.90-5.00 M/uL] 3.79 M/uL *LOW* (07/28/24 2:21 PM) T Bili [0.2-1.3 mg/dL] 0.6 mg/dL (07/28/24 2:21 PM) Prot [6.3-8.2 g/dL] 7.7 g/dL (07/28/24 2:21 PM) WBC [4.0-10.4 K/uL] 8.96 K/uL (07/28/24 2:21 PM) 1Result Comment: Testing Performed By: Dept of Pathology [facility], [address] [place] [address], [place] [address] 2Result Comment: Deficiency: <20 ng/mL Insufficiency: 21-29 ng/mL Sufficiency: 30-100 ng/mL Potenial Toxicity: >150 ng/mL 3Result Comment: M. tuberculosis infection NOT likely 4Result Comment: Testing Performed By: Dept of Pathology [facility], [address] [place] [address], [place] [address] 5Result Comment: Testing Performed By: Dept of Pathology [facility], [address] [place] [address], [place] [address] 6Result Comment: Testing Performed By: Dept of Pathology [facility], [address] [place] [address], [place] [address] Vital Signs Most recent to oldest [Reference Range]: 1 Height 167 cm (07/28/24 10:32 AM) Patient Weight 145.8 kg (07/28/24 10:32 AM) Body Mass Index 52.28 kg/m2 (07/28/24 10:32 AM) Temperature [36.5-37.9 DegC] 36.5 DegC (07/28/24 10:32 AM) Heart Rate 93 bpm (07/28/24 10:32 AM) Respiratory Rate 20 br/min (07/28/24 10:32 AM) Blood Pressure 125/73mmHg (07/28/24 10:32 AM) Cuff Pulse Pressure 52 mmHg (07/28/24 10:32 AM) Social History Social History Type Response Smoking Status Never smoked cigaret fadi Sex Sex Representation Female (finding) Patient Care team information Care Team Personnel Name: MD Reyes Margaret Position: Resident Member Role: Primary Care Provider Address: [address] [place] [address] [place] Name: DO Zay, Paulo Position: Resident Member Role: Lifetime Relationship Address: [address] [place] [address] [place] Care Team Related Persons Name: NOHELIA HOLLINS
--- OUTSIDE RECORDS SUMMARY | 2024-08-10 18:47 | External Medical Summary | Continuity of Care Document ---
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 Name Role Phone Tanisha Reyes Primary Care Physician [phone] Encounter [facility] [id number] Date(s): 07/07/24 - 07/07/24 [facility] [address], [address] [place] [address] [phone] Encounter Diagnosis Internal carotid artery stent present(Discharge Diagnosis) - 07/07/24 Discharge Disposition: Home or Self Care Attending Physician: ADINA Ramos Lynn Allergies, Adverse Reactions, Alerts Substance Criticality Severity Reaction Reaction Severity Status ciprofloxacin dizzy, vomitting Active red dye Unable to assess criticality Severe Anaphylaxis Active Assessment and Plan Extracted from: Title:Clinical Document Author:ADINA Ramos Lynn Date:07/07/24 [facility] OUTPATIENT NOTE Name: AARON GIMENEZ Patient Number: [id number] : 1945 Date of Service: 07/07/2024 Chief Complaint: _Follow-up after left TCAR HPI: _ is an elderly female who presents to Dr. Vazquez's vascular surgery clinic today for a 2-week follow-up visit after undergoing an uncomplicated left TCAR procedure. Patient overall states she is doing well. She is somewhat fatigued, but states this is not significantly different than her normal state. She denies any new symptoms of cerebrovascular insufficiency including amaurosis, unilateral extremity weakness numbness or tingling, difficulty speaking or swallowing, facial droop, sudden onset confusion. Current Home Meds: (Last Updated 07/07 14:04) amoxicillin-clavulanate (Augmentin 875 mg-125 mg oral tablet) 1 tab PO q12h apixaban (Eliquis 5 mg oral tablet) 5 mg PO bid TAKE 1 TABLET BY MOUTH IN THE MORNING AND AT BEDTIME aspirin (Aspir 81 oral delayed release tablet) 81 mg PO Daily bifidobacterium infantis (Align) 4 mg PO Daily calcium-vitamin D (Calcium 600+D) 1 tab po bid cholecalciferol (Vitamin D3 50 mcg (2000 intl units) oral tablet) 50 mcg PO Daily cyanocobalamin (Vitamin B12) 1,000 mcg PO Daily levothyroxine (levothyroxine 200 mcg (0.2 mg) oral tablet) 200 mcg PO Daily levothyroxine (levothyroxine 25 mcg (0.025 mg) oral tablet) 25 mcg PO Daily metFORMIN (metFORMIN 500 mg oral tablet) 500 mg PO bid midodrine (midodrine 5 mg oral tablet) 5 mg PO tid pravastatin (pravastatin 40 mg oral tablet) 40 mg PO Daily ticagrelor (Brilinta (ticagrelor) 90 mg oral tablet) 90 mg PO bid torsemide (torsemide 10 mg oral tablet) 10 mg PO Daily Allergies and Sensitivities: ciprofloxacin(dizzy, vomitting) red dye(Anaphylaxis) Past Medical History: Problems: Internal carotid artery stent present Hypothyroidism Diabetes Crohn's disease CHF (congestive heart failure) Carotid stenosis, bilateral Ileostomy in place VTE (venous thromboembolism) Diabetic neuropathy Arthritis, rheumatoid Orthostasis Fistula Generalized weakness Vitamin D deficiency Cirrhosis Tinea unguium Anemia OBJECTIVE Vitals: Last Updated 06/30/24 14:58 Date Temp BP Location Pulse RR SpO2 Pain 06/30/24 36.7 128/68 86 18 95 06/30/24 7 06/15/24 126/72 81 17 97 Vital Signs are the last 3 documented. No Orthostatic Data Available Height and Weight: Last Updated 06/30/24 14:58 Date BMI Wt(kg) Wt(lb) Method Ht(cm) (ft-in) Method 06/30/24 53.43 149 328 Standing Scale 167 5-5 06/15/24 53.28 148.6 327 Standing Scale 167 5-5 05/25/24 54.9 153.1 337 Standing Scale 167 5-5 Patient stated Heights and Weights are the last 3 documented. Physical Exam Constitutional: In general patient is an obese but healthy-appearing well- nourished developed elderly female in no distress. She ambulates with a rolling walker. Her left supraclavicular incision does have a small hematoma present which is not significantly tender. She is a faint bruit over her carotid arteries. Her heart is irregular. Her radial pulses are +3. ASSESSMENT: _ PLAN: _ 1 ) _bilateral carotid stenosis, status post left TCAR Patient is now 2 weeks status post left TCAR procedure. She is doing well postoperatively. She is also known to have at least 80% stenosis of her right ICA on her last imaging. At her last office visit, it was discussed that we would stage the procedures, performing the left TCAR and then a right TCAR at a later date. Patient states that she is willing to proceed with her right TCAR. The procedure benefits and alternatives were discussed at length with the patient by myself. The risks of the procedure, including bleeding, infection, myocardial infarction, cerebrovascular accident, nerve damage, blood clots, and , were discussed with the patient by myself at Dr. Vazquez's request. Patient expresses understanding and agreement to proceed. This will be scheduled in the next few weeks at the patient's convenience. She is advised to call with any other questions or concerns. Thank you for letting us participate in the care of this patient. Immunizations Given and Recorded Vaccine Date Status [...] PO, q12h, Disp# 14, Refills: 1, Pharmacy: [facility] [address] Start Date: 06/15/24 Stop Date: 06/29/24 Status: Ordered Brilinta (ticagrelor) 90 mg oral tablet Start: 06/15/24 10:08:00 AM EDT, 1 tab, PO, bid, Disp# 60 tab, Refills: 11, Pharmacy: [facility] [address] Start Date: 06/15/24 Status: Ordered Calcium 600+D Start: 07/10/22 3:11:00 PM EDT, 1 tab po bid Start Date: 07/10/22 Status: Ordered Eliquis 5 mg oral tablet Start: 04/21/24 3:00:00 PM EDT, 1 tab, PO, bid, Disp# 60 tab, Refills: 3, TAKE 1 TABLET BY MOUTH IN THE MORNING AND AT BEDTIME, Pharmacy: [facility] [address] Start Date: 04/21/24 Stop Date: 08/19/24 Status: Ordered levothyroxine 200 mcg (0.2 mg) oral tablet Start: 05/31/24 4:21:00 PM EDT, 1 tab, PO, Daily, Disp# 30 tab, Refills: 4, Note to Pharmacy: patienttakes 225 mcg, fill both 200 mcg and 25 mcg tabs, Pharmacy: [facility] [address] Start Date: 05/31/24 Stop Date: 10/28/24 Status: Ordered levothyroxine 25 mcg (0.025 mg) oral tablet Start: 06/15/24 10:08:00 AM EDT, 1 tab, PO, Daily, Disp# 30 tab, Refills: 11, Note to Pharmacy: patient to take 225 mg of levothyroxine., Pharmacy: [facility] [address] Start Date: 06/15/24 Stop Date: 06/10/25 Status: Ordered metFORMIN 500 mg oral tablet Start: 04/21/24 2:59:00 PM EDT, 1 tab, PO, bid, Disp# 180 tab, Refills: 2, Pharmacy: [facility] [address] Start Date: 04/21/24 Stop Date: 01/16/25 Status: Ordered midodrine 5 mg oral tablet Start: 04/22/24 7:13:00 PM EDT, 1 tab, PO, tid, Disp# 90 tab, Pharmacy: [facility] [address] Start Date: 04/22/24 Stop Date: 05/22/24 Status: Ordered pravastatin 40 mg oral tablet Start: 04/21/24 2:59:00 PM EDT, 1 tab, PO, Daily, Disp# 90 tab, Refills: 1, Pharmacy: [facility] [address] Start Date: 04/21/24 Stop [...] Start Date: 05/11/24 Status: Ordered Mental Status 07/07/24 Barriers to Learning one year None evide nt Mandatory Health Literacy Documentation Yes Communication Barrier Present No Health Literacy Communication Barriers N ever Primary Language Japanese Problem List Condition Confirmation Course Effective Dates Status H ealth Status Informant Anemia Confirmed Active Generalized weakness Confirmed Active Carotid stenosis, bilateral Confirmed Active Cirrhosis Confirmed Active CHF (congestive heart failure) Confirmed Active Crohn's disease Confirmed Active Diabetes Confirmed Active Hypothyroidism Confirmed Active Fistula Confirmed Active 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 Diabetic neuropathy Confirmed Active Tinea unguium Confirmed Active Orthostasis Confirmed Active Arthritis, rheumatoid Confirmed Active Internal carotid artery stent present Confirmed Active VTE (venous thromboembolism) Confirmed Active Vitamin D deficiency Confirmed Active Diagnosis Diagnosis Type Effective Dates Health Status Cl inical Service Informant Internal carotid artery stent present Discharge Diagnosis 07/07/24 Procedures Procedure Date Related Diagnosis Body Site [...] hernia, rectal stump, umbilical hernia, osteopenisa [facility] 05/07/2021 and 12/28/20 Office visits s/u 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 CMP 10/2020 gluc 113 H, CMP 01/2022 [id number] H, Hgb a1c 6.2 H, 9bilateral knees Social History Social History Type Response Smoking Status Never smoked cigaret fadi Sex Sex Representation Female (finding) [facility] Outpt Note * ADINA Ramos Lynn: PERFORM Event Display: [facility] Outpt Note Authored Date: [id number] [facility] OUTPATIENT NOTE Name: AARON GIMENEZ Patient Number: [id number] : 1945 Date of Service: 07/07/2024 Chief Complaint: _Follow-up after left TCAR HPI: _ is an elderly female who presents to Dr. Vazquez's vascular surgery clinic today for a 2-week follow-up visit after undergoing an uncomplicated left TCAR procedure. Patient overall states she is doing well. She is somewhat fatigued, but states this is not significantly different than her normal state. She denies any new symptoms of cerebrovascular insufficiency including amaurosis, unilateral extremity weakness numbness or tingling, difficulty speaking or swallowing, facial droop,sudden onset confusion. Current Home Meds: (Last Updated 07/07 14:04) amoxicillin-clavulanate (Augmentin 875 mg-125 mg oral tablet) 1 tab PO q12h apixaban (Eliquis 5 mg oral tablet) 5 mg PO bid TAKE 1 TABLET BY MOUTH IN THE MORNING AND AT BEDTIME aspirin (Aspir 81 oral delayed release tablet) 81 mg PO Daily bifidobacterium infantis (Align) 4 mg PO Daily calcium-vitamin D (Calcium 600+D) 1 tab po bid cholecalciferol (Vitamin D3 50 mcg (2000 intl units) oral tablet) 50 mcg PO Daily cyanocobalamin (Vitamin B12) 1,000 mcg PO Daily levothyroxine (levothyroxine 200 mcg (0.2 mg) oral tablet) 200 mcg PO Daily levothyroxine (levothyroxine 25 mcg (0.025 mg) oral tablet) 25 mcg PO Daily metFORMIN (metFORMIN 500 mg oral tablet) 500 mg PO bid midodrine (midodrine 5 mg oral tablet) 5 mg PO tid pravastatin (pravastatin 40 mg oral tablet) 40 mg PO Daily ticagrelor (Brilinta (ticagrelor) 90 mg oral tablet) 90 mg PO bid torsemide (torsemide 10 mg oral tablet) 10 mg PO Daily Allergies and Sensitivities: ciprofloxacin(dizzy, vomitting) red dye(Anaphylaxis) Past Medical History: Problems: Internal carotid artery stent present Hypothyroidism Diabetes Crohn's disease CHF (congestive heart failure) Carotid stenosis, bilateral Ileostomy in place VTE (venous thromboembolism) Diabetic neuropathy Arthritis, rheumatoid Orthostasis Fistula Generalized weakness Vitamin D deficiency Cirrhosis Tinea unguium Anemia OBJECTIVE Vitals: Last Updated 06/30/24 14:58 Date Temp BP Location Pulse RR SpO2 Pain 06/30/24 36.7 128/68 86 18 95 06/30/24 7 06/15/24 126/72 81 17 97 Vital Signs are the last 3 documented. No Orthostatic Data Available Height and Weight: Last Updated 06/30/24 14:58 Date BMI Wt(kg) Wt(lb) Method Ht(cm) (ft-in) Method 06/30/24 53.43 149 328 Standing Scale 167 5-5 06/15/24 53.28 148.6 327 Standing Scale 167 5-5 06/26/24 54.9 153.1 337 Standing Scale 167 5-5 Patient stated Heights and Weights are the last 3 documented. Physical Exam Constitutional: In general patient is an obese but healthy-appearing well- nourished developed elderly female in no distress. She ambulates with a rolling walker. Her left supraclavicular incision does have a small hematoma present which is not significantly tender. She is a faint bruit over her carotid arteries. Her heart is irregular. Her radial pulses are +3. ASSESSMENT: _ PLAN: _ 1 ) _bilateral carotid stenosis, status post left TCAR Patient is now 2 weeks status post left TCAR procedure. She is doing well postoperatively. She is also known to have at least 80% stenosis of her right ICA on her last imaging. At her last office visit, it was discussed that we would stage the procedures, performing the left TCAR and then a right TCAR at a later date. Patient states that she is willing to proceed with her right TCAR. The procedure benefits and alternatives were discussed at length with the patient by myself. The risks of the procedure, including bleeding, infection, myocardial infarction, cerebrovascular accident, nerve damage, blood clots, and , were discussed with the patient by myself at Dr. Vazquez's request. Patient expresses understanding and agreement to proceed. This will be scheduled in the next few weeks at the patient's convenience. She is advised to call with any other questions or concerns. Thank you for letting us participate in the care of this patient. Electronic Signature on File CC: Tanisha Reyes MD [address] [place] [id number] Electronically Reviewed/Signed by: Clarisse Ramos PA-C Author Signature Dt/Tm:07/07/2024 03:11 PM [facility] [address], [address] [place] [address] LM Patient Care team information Care Team Personnel Name: MD Reyes Margaret Position: Resident Member Role: Primary Care Provider Address: [address] [place] [id number] [place] Name: DO Collazo Sameer Position: Resident Member Role: Lifetime Relationship Address: [address] [place] [address] [place] Care Team Related Persons Name: NOHELIA HOLLINS
--- OUTSIDE RECORDS SUMMARY | 2024-08-10 18:47 | External Medical Summary | Continuity of Care Document ---
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 Name Role Phone Tanisha Reyes Primary Care Physician [phone] [facility] [id number] Date(s): 06/30/24 - 06/30/24 [facility] [address] [place] [address] [phone] Encounter Diagnosis Carotid stenosis, bilateral(Discharge Diagnosis) - 06/30/24 CHF (congestive heart failure)(Discharge Diagnosis) - 06/30/24 Crohn's disease(Discharge Diagnosis) - 06/30/24 Diabetes(Discharge Diagnosis) - 06/30/24 Hypothyroidism(Discharge Diagnosis) - 06/30/24 Body mass index [BMI] 50.0-59.9, adult(Discharge Diagnosis) - 06/30/24 Crohn's disease, unspecified, without complications(Final) - Discharge Disposition: Home or Self Care Attending Physician: MD Alfonso, Papi Bender Allergies, Adverse Reactions, Alerts No Known Medication Allergies Substance Criticality Severity Reaction Reaction Severity Status red dye Unable to assess criticality Severe Anaphylaxis Active Assessment and Plan Extracted from: Title:Office Visit Note Author:MD Fransisco, Shanon Date:06/30/24 1.Carotid stenosis, bilate ral Chronic in severe exacerbation/progression/side effects Goal: Prevent future CVA Data: Plan: - Last Episode of CVA 2023 - Recently underwent Left Transcarotid Artery Revascularization(06/27/24). -UnderElliquis/ASA/ Ticagrelor: Continue - Goal:LDL < 70 (she karley statin) - Right TCAR will be planned after left TCAR heals. 2.CHF (congestive heart failure) Chronic condition, stable Goal:Resolution Data: Recent Echo: Preserved EF Plan: - As per cardiac consult( 06/27); currently asymptomatic from a CVstandpoint. - Current meds:Torsemide 10 mg daily: Continue - F/U cardiac( set up outpatient appointment)if symptom develops/ worsens from baseline. 3.Crohn's disease Chronic condition exacerbated/progressive/side effects of treatment Goal: Symptom control Data: Extensive previous revious records reviewed Plan: - S/Ptotal proctocolectomy and RLQileostomyformation. - Complicated byfistula formation and on and off infection. - Discharge from fistula sincelast week; Swab taken and sent for aerobic and anaerobic C/S. - ContinueAugmentin: will reevaluate after C/S report if additional abx needed. - GI team had planned to start Infliximab; has not started yet. - E-consult to GI team about above sent; response awaiting. - She has appointment with IBD Fellow at [facility] [place] . - Under Sangeeta Shields in [place]; cc on econsult - F/U if symptom worsens. 4.Diabetes Chronic condition, stable Goal: HBA1C <7 Data: Reviewed recent HBA1c and fating glucose Plan: -MostR rngonINI1T:6.3 (06/27) -Mnjlwvsieknmet523 mg BID: Continue - encouraged ADA diet. 5.Hypothyroidism Chronic condition, stable Goal: TSH range: 1-2 Data: Recent TSH 0.45 (06/15) Plan: - Continue levothyroxine 225 mcg. - Repeat TSH every year or if new symptoms of hypothyroidism or weight gain or loss >10% - Given the history of heart failure and high risk of osteoporosis in her, levothyroxine dose can be titrated down in next visit Immunizations Given and Recorded Vaccine Date Status [...] PO, q12h, Disp# 14, Refills: 1, Pharmacy: [id number] Start Date: 06/15/24 Stop Date: 06/29/24 Status: Ordered Brilinta (ticagrelor) 90 mg oral tablet Start: 06/15/24 10:08:00 AM EDT, 1 tab, PO, bid, Disp# 60 tab, Refills: 11, Pharmacy: [id number] Start Date: 06/15/24 Status: Ordered Calcium 600+D Start: 07/10/22 3:11:00 PM EDT, 1 tab po bid Start Date: 07/10/22 Status: Ordered Eliquis 5 mg oral tablet Start: 04/21/24 3:00:00 PM EDT, 1 tab, PO, bid, Disp# 60 tab, Refills: 3, TAKE 1 TABLET BY MOUTH IN THE MORNING AND AT BEDTIME, Pharmacy: [id number] Start Date: 04/21/24 Stop Date: 08/19/24 Status: Ordered levothyroxine 200 mcg (0.2 mg) oral tablet Start: 05/31/24 4:21:00 PM EDT, 1 tab, PO, Daily, Disp# 30 tab, Refills: 4, Note to Pharmacy: patienttakes 225 mcg, fill both 200 mcg and 25 mcg tabs, Pharmacy: [id number] Start Date: 05/31/24 Stop Date: 10/28/24 Status: Ordered levothyroxine 25 mcg (0.025 mg) oral tablet Start: 06/15/24 10:08:00 AM EDT, 1 tab, PO, Daily, Disp# 30 tab, Refills: 11, Note to Pharmacy: patient to take 225 mg of levothyroxine., Pharmacy: [id number] Start Date: 06/15/24 Stop Date: 06/10/25 Status: Ordered metFORMIN 500 mg oral tablet Start: 04/21/24 2:59:00 PM EDT, 1 tab, PO, bid, Disp# 180 tab, Refills: 2, Pharmacy: [facility] Start Date: 04/21/24 Stop Date: 01/16/25 Status: Ordered midodrine 5 mg oral tablet Start: 04/22/24 7:13:00 PM EDT, 1 tab, PO, tid, Disp# 90 tab, Pharmacy: [facility] Start Date: 04/22/24 Stop Date: 05/22/24 Status: Ordered pravastatin 40 mg oral tablet Start: 04/21/24 2:59:00 PM EDT, 1 tab, PO, Daily, Disp# 90 tab, Refills: 1, Pharmacy: [facility] Start Date: 04/21/24 Stop [...] Start Date: 05/11/24 Status: Ordered Mental Status 06/30/24 Barriers to Learning one year None evide nt Mandatory Health Literacy Documentation Yes Health Literacy Communication Barriers N ever Primary Language Northern Irish Problem List Condition Confirmation Course Effective Dates [...] Orthostasis Confirmed Active Arthritis, rheumatoid Confirmed Active VTE (venous thromboembolism) Confirmed Active Vitamin D deficiency Confirmed Active Diagnosis Diagnosis Type Effective Dates Health Status Clinical Service Informant Crohn's disease Discharge Diagnosis 06/30/24 Non-Specified Carotid stenosis, bilateral Discharge Diagnosis 06/30/24 Non-Specified CHF (congestive heart failure) Discharge Diagnosis 06/30/24 Non-Specified Diabetes Discharge Diagnosis 06/30/24 Non-Specified Hypothyroidism Discharge Diagnosis 06/30/24 Non-Specified Body mass index [BMI] 50.0-59.9, adult Discharge Diagnosis 06/30/24 Non-Specified Procedures Procedure Date Related Diagnosis Body [...] CMP 10/2020 gluc 113 H, CMP 01/2022 [id number] H, Hgb a1c 6.2 H, 9bilateral knees Results Orders for Microbiology Reports Name Date Fungus Culture, Wound w Smear (CULTURE,F UNGUS(WOUND)) 07/01/24 Wound Culture w Smear (CULTURE, WOUND) Microbiology Reports TEST:Wound.Cx STATUS:Unauthenticated BODY SITE: SOURCE:Wound COLLECTED DATE/TIME:07/01/24 4:04 PM Culture 4+ PRESUMPTIVE MIXED INTESTINAL ANISHA TEST:Fungus.Culture, Wound STATUS:Unauthenticated BODY SITE: SOURCE:Wound COLLECTED DATE/TIME:07/01/24 4:04 PM Fungal Direct Exam NO FUNGAL ELEMENTS SEEN Vital Signs Most recent to oldest [Reference Range]: 1 Height 167 cm (06/30/24 2:58 PM) Patient Weight 149 kg (06/30/24 2:58 PM) Body Mass Index 53.43 kg/m2 (06/30/24 2:58 PM) Temperature [36.5-37.9 DegC] 36.7 DegC (06/30/24 2:58 PM) Heart Rate 86 bpm (06/30/24 2:58 PM) Respiratory Rate 18 br/min (06/30/24 2:58 PM) Blood Pressure 128/68mmHg (06/30/24 2:58 PM) Cuff Pulse Pressure 60 mmHg (06/30/24 2:58 PM) Social History Social History Type Response Smoking Status Never smoked cigaret fadi Sex Sex Representation Female (finding) [facility] Outpt Note * MD Fransisco, Shanon: PERFORM MD Alfonso, Papi Bender: MODIFY Event Display: [facility]CM Outpt Note Authored Date: Chief Complaint Hospital f/u. Believes infection still happening and antibiotic not helping. History of Present Illness Patient is a 79 year old Femalepresenting to the [facility] for [facility]itional [facility] Complains of feverish feeling since today, endorses her fistula around ileostomy site oozing/ opening up againsince a week or so. 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 She is under Augmentinfor same (recently changesfrom cipro /metron, which she took for around 6 years) PMH reviewed: 1. S/P left TCAR i.e Left Transcarotid Artery Revascularization(06/27/24) forBL carotid arterystenosis and recent CVA( Aprl20, 24) with DVT/PE: UnderEliquis/ASA/ Ticagrelor. Carotid stenosis diagnose in February 2024 when she presented to ER with Nausea, dizziness. 2.Crohn'sdz S/Ptotal proctocolectomy and RLQileostomyformation since 25 years. Course complicated by multiple fistula formation/ Ileostomy inplace. Initially told had UC but fistula disease and actually has Crohn's. Planned to visit IBD specialist at [facility] on July. Patient would prefer to see someone nearby, but she will see IBD team anyway. Had previously seen Dr. Forman when he was in [place] for outreach clinic; he strongly recommended a trial of Remicade due to her multiple surgical risk factors. I do not see this was ever prescribed; testing for whether she can safely trial Remicade has been reassuring to date: see labs andprevious GI notes. 3Diabetes with neuropathy: Under Metformin 500 BID / koqhgfSCG9G:6.3 (06/27) 4. Hypothyroidism: Under Sngdnnmlbehuy493 mcg, Recent TSH 0.45 5. CHF: HFpEFunder Torsemide 10 mg QD. EF 55-60%. Cardiology appointment on July 05. Morbid Obesity S/P Gastric Bypass in past 7.DVT/PE( Resolved for now): BL Submassive PE with occlusive thrombus in right popliteal vein and adjacent lesser saphenous vein,diagnosed while in the hospital. Started on Eliquis. Patient also on ASA and Brilinta. 8. Cirrhosis: As per previous documents, Cirrhosis is diagnosed, however recent LFTs, Prothrombin time WNL. CT consistently showing Cirrhotic liver. No ascites. 9. Orthostatic Hypotension. Meds: Elliquis 5 mg/ Aspirin 81 mg/Ticagrelor 90 mg Levothyroxine 225 mcg/ Midodrine 5 mg/ Pravastatin 40 mg/ Torsemide 10 mg BMI : >50 consistently LastvisitJuly 30 Day Labs Last Updated 06/15/24 19:20 06/15/24 Estimated Cr Cl75.71 Hgb10.8L BUN23H Cret0.93 Obp439M eGFR CKD-EPI63 TSH0.45L 02/13/2024( CT Neck ) Severe calcified plaque within the bilateral carotid bifurcations and proximal internal carotid arteries. This results in up to 80% stenosis within the proximal right internal carotid artery and high-grade/critical stenosis of greater than 90% within the proximal left internal carotid artery. CT Angio(March 19) 1. Subcentimeter acute versus subacute lacunar infarct is noted within the splenium of the corpus callosum. 2. Involutional changes with chronic microvascular ischemic disease. Cardiology consult( 06/22) Patient is currently asymptomatic from a cardiovascular standpoint, however, her functional status is limited due to neuropathy. She does have cardiovascular risk factors and known peripheral arterial disease. It is therefore recommended that she undergo stress testing. Future consult due: 07/07 : vascular surgery 08/18: IBD fellow Physical Exam Vitals & Measurements T:36.7C HR:86(Monitored) RR:18 BP:128/68 SpO2:95% HT:167cm WT:149.000kg(Dosing) WT:149kg BMI:53.43 PHQ2 Data(Data Documented on:06/30/2024 14:56) Emotional health assessment NEGATIVE General: Alert and oriented, No acute distress, patient in wheelchair, visible scar inleft supraclavicular region from LCAR. HEENT: Normocephalic, TM clear, Nl gross hearing, moist oral mucosa Cardiovascular: Normal rate, Regular rhythm, Murmur+ Respiratory: Lungs are clear to auscultation, Respirations are non-labored, Breath sounds are equal Gastrointestinal: Surgical scar+ from ileostomy site, oozingfrom fistula medial to ileostomy site, Purulent discharge noted, Swab taken and sent for aerobic and anaerobic C/S Musculoskeletal: Normal range of motion,normal strength. Neurologic:Normal sensory, Normal motor function, CN II-XII grossly intact. Integumentary: Warm, Dry, [place]. Psych: Mood-affect congruence. Reports no SI/HI. Speech is of normal pace and content Images 2024-06-30 16:12:45 Assessment/Plan 1.Carotid stenosis, bilateral Chronic in severe exacerbation/progression/side effects Goal: Prevent future CVA Data: Plan: - Last Episode of CVA 2023 - Recently underwentLeft Transcarotid Artery Revascularization(06/27/24). -UnderElliquis/ASA/ Ticagrelor: Continue - Goal:LDL < 70 (she karley statin) - Right TCAR will be planned after left TCAR heals. 2.CHF (congestive heart failure) Chronic condition, stable Goal:Resolution Data: Recent Echo: Preserved EF Plan: - As per cardiac consult( 06/27);currently asymptomatic from a CVstandpoint. - Current meds:Torsemide 10 mg daily: Continue - F/U cardiac( set up outpatient appointment)if symptom develops/ worsens from baseline. 3.Crohn's disease Chronic condition exacerbated/progressive/side effects of treatment Goal: Symptom control Data: Extensive previous revious records reviewed Plan: -S/Ptotal proctocolectomy and RLQileostomyformation. - Complicated byfistula formation and on and off infection. - Discharge from fistula sincelast week; Swab taken and sent for aerobic and anaerobic C/S. - ContinueAugmentin: will reevaluate after C/S report if additional abx needed. - GI team had planned to start Infliximab; has not started yet. - E-consult to GI team about above sent; response awaiting. - She has appointment with IBD Fellow at [facility] [place] . - Under Sangeeta Shields in [place]; cc on econsult - F/U if symptom worsens. 4.Diabetes Chronic condition, stable Goal: HBA1C <7 Data: Reviewed recent HBA1c and fating glucose Plan: -NzgtZemxpgVEE5Y:6.3 (06/27) -Smxxfdezguarrc484 mg BID: Continue - encouraged ADA diet. 5.Hypothyroidism Chronic condition, stable Goal: TSH range: 1-2 Data: Recent TSH 0.45 (06/15) Plan: - Continue levothyroxine 225 mcg. - Repeat TSH every year or if new symptoms of hypothyroidism or weight gain or loss >10% - Given the history of heart failure and high risk of osteoporosis in her, levothyroxine dose can be titrated down in next visit Attestation I separately obtainedan extensivehistory and exam on this patient, discussed the case with and agree with the assessment and plan of Dr. Moody. Problem List/Past Medical History Ongoing Anemia Arthritis, rheumatoid Carotid stenosis, bilateral CHF (congestive heart failure) Cirrhosis Crohn's disease Diabetes Diabetic neuropathy Fistula Generalized weakness Hypothyroidism Ileostomy in place Orthostasis Tinea unguium Vitamin D deficiency VTE (venous thromboembolism) Resolved Ulcerative colitis Procedure/Surgical History CT enterography| Service Date: 05/06/2023Ultrasound--abdomen| Service Date: 04/03/2023Upper GI (gastrointestinal) endoscopy| Service Date: 03/10/2023olonoscopy| Service Date: 09/23/2022T of abdomen and pelvis| Service Date: 09/05/2022Medical records review| Service Date: 05/07/20 21Gastric bypassThyroidectomyTotal knee replacementTotal colectomy and ileostomy Medications amoxicillin-clavulanate(Augmentin 875 mg-125 mg oral tablet), 1 tab, PO, q12h, 1 refills apixaban(Eliquis 5 mg oral tablet), 5 mg= 1 tab, PO, bid, 3 refills aspirin(Aspir 81 oral delayed release tablet), 81 mg= 1 tab, PO, Daily, 3 refills bifidobacterium infantis(Align), 4 mg, PO, Daily calcium-vitamin D(Calcium 600+D) cholecalciferol(Vitamin D3 50 mcg (2000 intl units) oral tablet), 50 mcg= 1 tab, PO, Daily cyanocobalamin(Vitamin B12), 1000 mcg, PO, Daily levothyroxine(levothyroxine 25 mcg (0.025 mg) oral tablet), 25 mcg= 1 tab, PO, Daily, 11 refills levothyroxine(levothyroxine 200 mcg (0.2 mg) oral tablet), 200 mcg= 1 tab, PO, Daily, 4 refills metFORMIN(metFORMIN 500 mg oral tablet), 500 mg= 1 tab, PO, bid, 2 refills midodrine(midodrine 5 mg oral tablet), 5 mg= 1 tab, PO, tid pravastatin(pravastatin 40 mg oral tablet), 40 mg= 1 tab, PO, Daily, 1 refills ticagrelor(Brilinta (ticagrelor) 90 mg oral tablet), 90 mg= 1 tab, PO, bid, 11 refills torsemide(torsemide 10 mg oral tablet), 10 mg= 1 tab, PO, Daily, 3 refills Allergies red dye(Severe)Anaphylaxis No Known Medication Allergies Social History Smoking Status Never smoked cigarettes Family History Breast cancer: Sister. Cardiovascular disease: Mother. Heart attack: Mother. Malignant tumor of lung: Father.Negative: Brother. Stroke: Mother. Health Status Family Member(s) Immunizations Vaccine Date Status hepatitis B adult vaccine 11/26/2023 Given hepatitis B adult vaccine 05/04/2023 Given hepatitis B adult vaccine 03/30/2023 Given influenza virus vaccine, inactivated 10/13/2022 Given SARS-CoV-2 (COVID-19) mRNA BNT-162b2 vax 10/23/2021 Recorded Comments : 2022-07-10: Historical information-source unspecified SARS-CoV-2 (COVID-19) mRNA BNT-162b2 vax 03/16/2021 Recorded SARS-CoV-2 (COVID-19) mRNA BNT-162b2 vax 02/22/2021 Recorded Recommendations Health Maintenance Pending(in the next year) OverDue Adult Influenza Vaccine due05/29/24and every 1year Due Adult COVID-19 Vaccination due06/30/24Unknown Frequency Adult Social Determinants of Health Screening due06/30/24Unknown Frequency Adult Tdap/Td Vaccine due06/30/24Unknown Frequency Diabetes Nephropathy Management due06/30/24Unknown Frequency Diabetic Eye Exam due06/30/24Unknown Frequency Falls Plan of Care due06/30/24Unknown Frequency Medicare Annual Wellness Visit due06/30/24and every 1year Osteoporosis Screening due06/30/24One-time only Pneumococcal Vaccine Older Adults due06/30/24One-time only Shingles Vaccine due06/30/24One-time only Due In Future Diabetes Management A1c not due until09/23/24and every Satisfied(in the past 1 year) Satisfied Body Mass Index on06/30/24.Satisfied by JULIANA Samaniego, Nataly Martinez Diabetes Management A1c on09/23/23.Satisfied by Contributor_system, [employer] Lipid Screening on06/15/24.Satisfied by Contributor_system, [email or web address] Electronic Signature on File Electronically Reviewed/Signed by: Shanon Moody MD Author Signature Dt/Tm:06/30/2024 10:48 PM Resident Department of Family Medicine Electronically Reviewed/Signed by: Papi Hamilton MD Cosigner Signature Dt/Tm: 07/01/2024 10:20 AM [facility]oc[facility] [address] [place] [address] , [place] Patient Care team information Care Team Personnel Name: MD Reyes Margaret Position: Resident Member Role: Primary Care Provider Address: [address] [place] [address] [place] Name: DO Collazo Sameer Position: Resident Member Role: Lifetime Relationship Address: [facility] [address] Care Team Related Persons Name: NOHELIA HOLLINS"
--- NOTE | 2024-08-10 19:49 | Critical Care Consultation ---
Date of Consultation August 10, 2024 Assessment & Plan (1) Stenosis of right carotid artery: Status post TCAR. Management per vascular surgery. Defer blood pressure goals and management along with anticoagulation to surgical team. (2) History of pulmonary embolism: Anticoagulation currently on hold. Defer management to surgical team (3) Hypothyroidism: Continue Synthroid (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: No issues at this time. Monitor output (5) CHF (congestive heart failure): Currently stable/well-controlled. Continue home diuretics. Defer restarting Brilinta to vascular surgical team. Continue midodrine (6) Diabetes: Currently euglycemic. ICU hyperglycemic protocol. Restart metformin in the a.m. and cover with insulin as needed in the meantime History of Present Illness Attending Physician: Stan Vazquez MD History of Present Illness Patient is a 79-year-old female with past medical history significant for PAD, DM type II, diastolic heart failure, pulmonary embolism and 12/23(Anticoagulated), Ulcerative colitis S/p cholectomy, and known Bilateral carotid artery stenosis with recent left TCAR in November. Patient was scheduled for TCAR for right carotid artery stenosis with vascular surgery for which she now presents to the ICU postop. On arrival to the ICU the patient is alert and oriented and hemodynamically stable with no acute distress and no neurological issues. She denies headache, dizziness, syncopal episodes, changes in vision, numbness or tingling, changes in gait. She denies recent illness or fevers, cough or congestion, shortness of breath, chest pain, palpitations, abdominal pain, nausea vomiting or diarrhea, swelling in hands or feet, recent weight gain, changes in urinary patterns or frequency, or changes in Colostomy output. Patient to remain in ICU for monitoring overnight. Allergies Allergy/AdvReac Type Severity Reaction Status Date / Time red dye Allergy Severe Anaphylaxis Verified 08/10/24 11:21 Home Medications Medication Instructions Recorded Confirmed Type metformin 500 mg tablet 500 mg PO BID 09/18/22 08/10/24 History pravastatin 40 mg tablet 40 mg PO HS 09/18/22 08/10/24 History levothyroxine 200 mcg tablet 200 mcg PO QAM 12/03/22 08/10/24 History cholecalciferol (vitamin D3) 50 50 mcg PO QAM 02/27/23 08/10/24 History mcg (2,000 unit) capsule (Vitamin D3) cyanocobalamin (vitamin B-12) 1,000 mcg PO QAM 02/27/23 08/10/24 History 1,000 mcg tablet (Vitamin B-12) levothyroxine 25 mcg tablet 25 mcg PO QAM 12/07/23 08/10/24 History apixaban 5 mg tablet (Eliquis) 5 mg PO BID #60 tabs 12/09/23 08/10/24 Rx acetaminophen 325 mg tablet 650 mg PO Q4H PRN Pain 03/07/24 08/10/24 History aspirin 81 mg tablet,delayed 81 mg PO QAM #30 tabs 03/19/24 08/10/24 Rx release torsemide 10 mg tablet 10 mg PO QAM 06/22/24 08/10/24 History midodrine 5 mg tablet 5 mg PO QAM 06/27/24 08/10/24 History famotidine 20 mg tablet (Pepcid) 20 mg PO BID PRN Acid Reflux 08/02/24 08/10/24 History oxycodone 5 mg tablet 5 mg PO Q6H PRN pain 08/02/24 08/10/24 History ticagrelor 90 mg tablet (Brilinta) 90 mg PO BID 08/02/24 08/10/24 History Patient History Medical History (Updated 08/10/24 @ 23:44 by [facility]) Acid reflux Anemia Hx of migraines No issues x years Diabetes mellitus, type II History of rhabdomyolysis 01/2024 Per records, patient denies History of DVT of lower extremity 11/2023 Carotid stenosis, bilateral History of CVA (cerebrovascular accident) 02/2024 -[facility] No deficits Family history of reaction to anesthesia Sister nausea/vomiting Cirrhosis Per records Patient unaware Depression Per records Patient denies 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 - current, s/p abx completion Morbid obesity with BMI of 50.0-59.9, adult Osteoarthritis Ulcerative colitis Hx - surgically removed and has ileostomy Heart murmur no significant valvular pathology on 03/08/2024 echo Surgical History History of transcarotid artery revascularization (TCAR) Left 06/27/24 History of benign breast biopsy History of total left knee replacement (TKR) History of total right knee replacement (TKR) History of gastric bypass History of hernia surgery History of cholecystectomy History of appendectomy History of colonoscopy and ileoscopy History of esophagogastroduodenoscopy (EGD) History of colon resection performed about 20yrs ago d/t ulcerative colitis---has ileostomy History of tooth extraction History of wisdom tooth extraction History of thyroidectomy, total d/t nodules History of bilateral cataract extraction Family History Sister Family history of reaction to anesthesia nausea/vomiting Social History Smoking Status: Never smoker Second Hand Exposure: No; Do You Dip or Chew Tobacco: No; Tobacco Cessation Education Requested by Patient: No Hx Alcohol Use: No Hx Substance Use: No Preferred Language: Luxembourgish Communication Ability: Effective Fur Drummer Required: No Beliefs That Will Affect Care: None Current Living Situation: Family Current Living Situation Comment: [facility] Other Information That Helps Us Care for You: No Feels Safe at Home: Yes Safety Concerns: Feels Safe At This Time Assistive Devices: Glasses and Walker Review of Systems Review of Systems: All systems reviewed & are unremarkable except as noted in HPI & below Physical Exam Constitutional: cooperative and comfortable Eyes: PERRL, conjunctivae normal, anicteric sclerae ENMT: external ear and nose normal, oropharynx normal Neck: trachea midline, no thyromegaly Respiratory: normal respiratory effort, lungs clear to auscultation Cardiovascular: RRR, no murmur, no edema Gastrointestinal (Abdomen): Normal bowel sounds, abdomen obese, soft, nontender. Ostomy with normal output. Musculoskeletal: no cyanosis or clubbing, extremities motor strength 5/5 Skin: no rashes, warm and dry Neurologic: PERRL, EOMI, accommodation nl, no face palsy, no dysarthria Psychiatric: A+Ox3, euthymic affect Results & Data Results & Data Vital Signs (Past 12 Hours) Vital Signs Temp Pulse Pulse Pulse Resp BP BP 08/10/24 18:30 83 15 08/10/24 18:00 84 23 08/10/24 17:37 77 14 121/61 08/10/24 17:27 84 08/10/24 17:00 81 20 08/10/24 16:50 83 20 08/10/24 16:40 83 17 08/10/24 16:30 84 15 08/10/24 16:20 85 17 08/10/24 16:10 92 H 19 08/10/24 16:00 83 17 08/10/24 15:50 82 14 08/10/24 15:40 82 14 08/10/24 15:40 81 15 08/10/24 15:32 36.0 C L 85 14 08/10/24 11:30 36.5 C 88 22 143/71 H BP Pulse Ox O2 Del Method O2 Flow Rate 08/10/24 18:30 91 08/10/24 18:00 93 08/10/24 17:37 97 Nasal Cannula 2 08/10/24 17:27 08/10/24 17:00 148/84 H 96 Nasal Cannula 2 08/10/24 16:50 91/60 L 98 Nasal Cannula 2 08/10/24 16:40 91/60 L 98 Nasal Cannula 2 08/10/24 16:30 97/57 L 95 Nasal Cannula 2 08/10/24 16:20 92/54 L 92 Room Air 08/10/24 16:10 96/56 L 92 Room Air 08/10/24 16:00 97/64 L 96 Room Air 08/10/24 15:50 115/58 L 94 Room Air 08/10/24 15:40 103/65 96 Room Air 08/10/24 15:40 104/62 95 Oxymask 5 08/10/24 15:32 128/72 95 Oxymask 5 08/10/24 11:30 129/77 96 Room Air Coding Level of Care Code 31883 IN/OBS CONSULT LVL 2,35M Diagnoses Stenosis of right carotid artery I65.21 History of pulmonary embolism Z86.711 Hypothyroidism E03.[address] Z93.2 CHF (congestive heart failure) I50.9 Diabetes E11.9 Time Spent (min) 38
[2024-08-10] MEDS: PRAVASTATIN SOD 40 MG TAB PO SCH (21:09)
[2024-08-10] MEDS: TICAGRELOR 90 MG TAB PO SCH (21:10)
[2024-08-11] MEDS: LEVOTHYROXINE SODIUM 200 MCG TABLET PO SCH (06:54)
[2024-08-11] MEDS: LEVOTHYROXINE SODIUM 25 MCG TABLET PO SCH (06:54)
--- NOTE | 2024-08-11 07:38 | Critical Care Progress Note ---
Date of Service August 11, 2024 Assessment & Plan (1) Stenosis of right carotid artery: (2) History of pulmonary embolism: (3) Hypothyroidism: (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: (5) CHF (congestive heart failure): (6) Diabetes: Plan --Carotid artery stenosis Status post TCAR 08/10/[address] Vazquez Management per vascular surgery. Defer blood pressure goals and management along with anticoagulation to surgical team. Neurological checks Q4 --History of pulmonary emboli Anticoagulation currently on hold. Defer management to surgical team --CHF Currently stable/well-controlled. Continue home diuretics. Defer restarting Brilinta to vascular surgical team. Continue midodrine --Hypothyroidism Continue Synthroid -- Diabetes type 2 Continue with ICU hypoglycemia protocol -- Ileostomy in place No issues at this time. Monitor output --Prophylaxis VTE: IPC GI: None Lines: Peripheral, left radial Diet: Cardiac Plan: In/out: +2.9 L, urine output 360 mL Patient still requiring 0.3 of Levophed. Her cough pressures have been systolic in the 100s with MAP in the 70s but the A-line has been showing SBP in the low 90s with MAP in the low 60s. Patient is asymptomatic Continue with home dose midodrine, can increase it to twice daily or 3 times daily if patient persistently needs phenylephrine Disposition as per vascular surgery Please note the above document was generated using voice recognition software. It may contain grammatical, syntax or spelling errors.Any formal questions or concerns about the content, text or information contained within the body of this dictation should be directly addressed to the provider for clarification. Admission and Anticipated Discharge Date Admission Date: August 10, 2024 Subjective Patient seen and examined at bedside. No acute distress, no adverse events overnight She was still on 0.3 of phenylephrine with time of examination. Her maps on the left radial were in the low 60s On the cuff pressure MAP was in the low 70s. Patient denied any issues. No chest pain, no shortness of breath, no abdominal pain. No dizziness, no blurry vision. Fair appetite, no nausea vomiting Review of Systems 2 Review of Systems: All systems reviewed & are unremarkable except as noted in Subjective Physical Exam 2 Physical Exam: Constitutional: No acute distress HEENT: EOMI, PERRLA, right sided incision clean, no hematoma Respiratory system: Good air entry bilaterally, no wheeze, no rhonchi, mild crackles bilateral lower lobes CVS: S1-S2 positive, no murmurs or gallops Abdomen: Soft, nontender, nondistended, positive bowel sounds x4, obese, positive ileostomy Extremities: +2 pulses bilaterally radialis/ dorsalis pedis, no cyanosis, no edema Neuro: Awake alert oriented x3, cranial nerves II to XII grossly intact, strength 5/5 bilateral upper and lower extremities Psych: Normal mood and affect G/U: No Grover Skin: no rashes, warm and dry Lymphatic: no cervical or axillary lymphadenopathy Results & Data Results & Data Vital Signs (Past 12 Hours) Vital Signs Temp Pulse Resp BP Pulse Ox O2 Del Method O2 Flow Rate 08/11/24 05:00 63 11 L 118/58 L 99 08/11/24 04:15 62 11 L 111/52 L 97 08/11/24 03:01 15 118/54 L 97 08/11/24 03:00 69 14 118/54 L 96 Nasal Cannula 2 08/11/24 02:00 37 C 61 117/68 08/11/24 01:00 66 15 111/61 97 08/11/24 00:00 74 16 128/63 95 08/11/24 00:00 78 08/10/24 23:01 36.9 C 110/55 L 08/10/24 22:06 71 23 108/57 L 96 08/10/24 21:12 81 15 106/57 L 95 08/10/24 20:33 86 19 96 08/10/24 19:45 Room Air Laboratory Results 08/10/24 11:23 Coding Level of Care Code 95927 SUB INP/OBS CARE 3/50MIN Diagnoses Stenosis of right carotid artery I65.21 History of pulmonary embolism Z86.711 Hypothyroidism E03.[address] Z93.2 CHF (congestive heart failure) I50.9 Diabetes E11.9
[2024-08-11] MEDS: CHOLECALCIFEROL 25 MCG (1000 UNITS) TAB PO SCH (08:18)
[2024-08-11] MEDS: CYANOCOBALAMIN (B-12) 500 MCG TABLET PO SCH (08:18)
[2024-08-11] MEDS: TORSEMIDE 10 MG TAB PO SCH (08:18)
[2024-08-11] MEDS: MIDODRINE HCL 2.5 MG TAB PO SCH ×2 (08:19→15:12)
[2024-08-11] MEDS: ASPIRIN 81 MG ECTAB PO SCH (08:21)
--- NOTE | 2024-08-11 11:54 | Pharmacy Report ---
Pharmacy Glycemic Short Note 2 - Date of Service August 11, 2024 - Glycemic Short BSG Results (Last 24 hours): 08/10/24 08/10/24 08/10/24 11:23 15:37 17:27 Glucose 143 H POC Glucose 132 H 131 H POC Glucose (other) 08/10/24 08/10/24 08/11/24 20:59 21:14 07:40 Glucose POC Glucose 114 H POC Glucose (other) 56 L* 115 H 08/11/24 11:16 Glucose POC Glucose 102 H POC Glucose (other) OUTPATIENT ANTIDIABETIC REGIMEN: * metformin 500mg PO BID HbA1C: 6.3% (06/27/24) ASSESSMENT: * Pt is a 79 year old female admitted s/p right TCAR, POD #1. History of DM2 on metformin @ home. Pharmacy consulted to assist with glycemic management while inpatient. * BSGs [phone]/dL since admission. No documented steroid admission. Tolerating diet. Continues on phenylephrine. * Hold basal for now given BSGs within goal range (as well as outpatient regimen, A1C). Novolog mild-moderate stress scale ACHS. PLAN FOR INPATIENT GLYCEMIC CONTROL: * Hold outpatient oral diabetes medications * Basal insulin * hold * Bolus insulin * NovoLog per scale ACHS or Q6hrs while NPO * Goal Range: Low 110 mg/dL - High 140 mg/dL * Correction Factor: 25 mg/dL/unit * Nutritional / Prandial insulin per carb ratio of 1 unit per 10 grams CHO consumed
[2024-08-11] MEDS ORDERED: PSEUDOEPHEDRINE HCL 30 MG TAB PO PRN (13:35)
--- NOTE | 2024-08-11 13:38 | Surgery Progress Note ---
Date of Service August 11, 2024 Assessment & Plan (1) Stenosis of right carotid artery: Plan: Patient POD #1 from a right tcar. She is still requiring pressors to maintain BP over 100. Will start sudafed today. Hopefully can d/c tomorrow Admission and Anticipated Discharge Date Admission Date: August 10, 2024 Subjective Patient without complaints. Denies any focal deficits Physical Exam Constitutional: WD/WN, vitals as above Neck: trachea midline Respiratory: normal respiratory effort; no respiratory distress Cardiovascular: Rate/Rhythm: regular rate and regular rhythm Skin: + incision (dry and clean) Neurologic: CN's II-XI intact bilaterally and moves all extremities Psychiatric: A+Ox3, euthymic affect Results & Data Vital Signs (Past 12 Hours) Vital Signs Temp Pulse Resp BP Pulse Ox O2 Del Method O2 Flow Rate 08/11/24 12:54 56 L 13 99 Nasal Cannula 2 08/11/24 12:15 61 16 96 08/11/24 12:12 57 L 16 95 08/11/24 11:39 67 15 96 08/11/24 11:15 60 17 96 08/11/24 11:01 115/57 L 08/11/24 10:54 56 L 18 96 Room Air 08/11/24 10:39 57 L 16 97 08/11/24 10:15 66 20 08/11/24 09:30 52 L 97 08/11/24 09:15 56 L 15 98 08/11/24 08:43 Nasal Cannula 2 08/11/24 08:30 74 16 08/11/24 08:15 63 15 96 Nasal Cannula 2 08/11/24 08:07 107/63 08/11/24 08:03 57 L 15 99 08/11/24 08:01 104/58 L 08/11/24 08:00 59 L 14 98 08/11/24 08:00 55 L 08/11/24 07:46 36.7 C 08/11/24 07:45 57 L 15 98 08/11/24 07:33 65 14 99 08/11/24 07:15 88 17 98 08/11/24 07:03 55 L 18 99 08/11/24 07:01 123/54 L 08/11/24 06:57 53 L 19 98 08/11/24 06:48 55 L 17 96 08/11/24 06:36 55 L 14 98 08/11/24 06:24 55 L 13 97 08/11/24 06:01 127/65 08/11/24 06:00 61 17 98 08/11/24 05:45 52 L 12 98 08/11/24 05:39 55 L 16 98 08/11/24 05:21 55 L 12 97 08/11/24 05:03 54 L 14 97 08/11/24 05:00 63 11 L 118/58 L 99 08/11/24 04:15 62 11 L 111/52 L 97 08/11/24 03:01 15 118/54 L 97 08/11/24 03:00 69 14 118/54 L 96 Nasal Cannula 2 08/11/24 02:00 37 C 61 117/68
[2024-08-11 22:52] VITALS: TEMP 98.4
--- NOTE | 2024-08-12 07:36 | Critical Care Progress Note ---
Date of Service August 12, 2024 Assessment & Plan (1) Stenosis of right carotid artery: (2) History of pulmonary embolism: (3) Hypothyroidism: (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: (5) CHF (congestive heart failure): (6) Diabetes: Plan --Carotid artery stenosis Status post TCAR 08/10/[address] Vazquez Management per vascular surgery. Defer blood pressure goals and management along with anticoagulation to surgical team. Neurological checks Q4 --History of pulmonary emboli Anticoagulation currently on hold. Defer management to surgical team --CHF Well compensated Continue with Brilinta Continue midodrine --Hypothyroidism Continue Synthroid -- Diabetes type 2 Continue with ICU hypoglycemia protocol -- Ileostomy in place No issues at this time. Monitor output --Prophylaxis VTE: IPC GI: None Lines: Peripheral, left radial Diet: Cardiac Plan: In/out: +2.9 L, urine output 675 mL. +5.9 L since coming to the hospital Still requiring 0.1 of phenylephrine. Midodrine has been increased to 5 mg 3 times daily. Can consider 10 mg 3 times daily if need be Disposition as per vascular surgery Please note the above document was generated using voice recognition software. It may contain grammatical, syntax or spelling errors.Any formal questions or concerns about the content, text or information contained within the body of this dictation should be directly addressed to the provider for clarification. Admission and Anticipated Discharge Date Admission Date: August 10, 2024 Subjective Patient seen and examined at bedside. No acute distress, no events overnight She was on 0.1 of phenylephrine at the time of examination Systolic on the radial line was in the 90s. MAP greater than 65 Denied any chest pain, no headache, no nausea, no vomiting Has been afebrile No difficulty swallowing Review of Systems 2 Review of Systems: All systems reviewed & are unremarkable except as noted in Subjective Physical Exam 2 Physical Exam: Constitutional: No acute distress HEENT: EOMI, PERRLA, right sided incision clean, no hematoma Respiratory system: Good air entry bilaterally, no wheeze, no rhonchi, mild crackles bilateral lower lobes CVS: S1-S2 positive, no murmurs or gallops Abdomen: Soft, nontender, nondistended, positive bowel sounds x4, obese, positive ileostomy Extremities: +2 pulses bilaterally radialis/ dorsalis pedis, no cyanosis, no edema Neuro: Awake alert oriented x3, cranial nerves II to XII grossly intact, strength 5/5 bilateral upper and lower extremities Psych: Normal mood and affect G/U: No Grover Skin: no rashes, warm and dry Lymphatic: no cervical or axillary lymphadenopathy Results & Data Results & Data Vital Signs (Past 12 Hours) Vital Signs Temp Pulse Resp BP Pulse Ox O2 Del Method O2 Flow Rate 08/12/24 07:15 55 L 16 95 Nasal Cannula 2 08/12/24 07:03 55 L 17 95 Room Air 08/12/24 07:01 124/56 L 08/12/24 06:52 110/55 L 08/12/24 06:01 54 L 15 124/53 L 98 08/12/24 05:01 51 L 12 128/56 L 98 2 08/12/24 04:00 56 L 12 124/65 98 08/12/24 03:00 50 L 14 123/64 100 08/12/24 02:03 52 L 14 135/60 100 08/12/24 01:54 56 L 16 135/60 97 08/12/24 01:06 50 L 12 119/60 97 08/12/24 00:54 59 L 12 98 08/12/24 00:20 119/59 L 08/12/24 00:01 36.9 C 16 133/61 97 08/12/24 00:00 50 L 08/11/24 23:54 58 L 13 96 08/11/24 23:12 56 L 16 98 08/11/24 22:52 36.9 C 08/11/24 22:00 59 L 14 99 08/11/24 21:06 54 L 13 97 08/11/24 21:00 61 17 115/61 97 08/11/24 20:01 54 L 115/49 L 98 2 Laboratory Results 08/10/24 11:23 Coding Level of Care Code 02104 SUB INP/OBS CARE 2/35MIN Diagnoses Stenosis of right carotid artery I65.21 History of pulmonary embolism Z86.711 Hypothyroidism E03.[address] Z93.2 CHF (congestive heart failure) I50.9 Diabetes E11.9
--- NOTE | 2024-08-12 09:40 | Surgery Progress Note ---
Date of Service August 12, 2024 Assessment & Plan (1) Stenosis of right carotid artery: Plan: Patient POD #2 from a right tcar. Neosynephrine has been d/c. Remains hypotensive with sbp 85-95mmHg. Pt asymptomatic, even got OOB to chair without any sx. If BP improves slightly and pt remains asymptomatic, pt may be ok for d/c home later today. Admission and Anticipated Discharge Date Admission Date: August 10, 2024 Subjective 79 yo F POD #2 after uncomplicated R TCAR, seen in f/u today. Pt states feeling ok, just a little tired. Denies any lightheadedness, chest pain, SOB, N/V, other complaints. States would like to go home today. Pt remains mildly hypotensive. Review of Systems Review of Systems: All systems reviewed & are unremarkable except as noted in HPI & below Physical Exam Constitutional: WD/WN, vitals as above Neck: trachea midline Respiratory: normal respiratory effort; no respiratory distress Cardiovascular: Rate/Rhythm: regular rate and regular rhythm Skin: + incision (dry and clean) Neurologic: CN's II-XI intact bilaterally and moves all extremities Psychiatric: A+Ox3, euthymic affect Results & Data Vital Signs (Past 12 Hours) Vital Signs Temp Pulse Resp BP Pulse Ox O2 Del Method O2 Flow Rate 08/12/24 07:38 54 L 08/12/24 07:31 Nasal Cannula 2 08/12/24 07:15 55 L 16 95 Nasal Cannula 2 08/12/24 07:03 55 L 17 95 Room Air 08/12/24 07:01 124/56 L 08/12/24 06:52 110/55 L 08/12/24 06:01 54 L 15 124/53 L 98 08/12/24 05:01 51 L 12 128/56 L 98 2 08/12/24 04:00 56 L 12 124/65 98 08/12/24 03:00 50 L 14 123/64 100 08/12/24 02:03 52 L 14 135/60 100 08/12/24 01:54 56 L 16 135/60 97 08/12/24 01:06 50 L 12 119/60 97 08/12/24 00:54 59 L 12 98 08/12/24 00:20 119/59 L 08/12/24 00:01 36.9 C 16 133/61 97 08/12/24 00:00 50 L 08/11/24 23:54 58 L 13 96 08/11/24 23:12 56 L 16 98 08/11/24 22:52 36.9 C 08/11/24 22:00 59 L 14 99
--- NOTE | 2024-08-12 11:41 | Pharmacy Report ---
Pharmacy Glycemic Short Note 2 - Date of Service August 12, 2024 - Glycemic Short BSG Results (Last 24 hours): 08/11/24 08/11/24 08/12/24 16:05 20:17 07:23 POC Glucose 115 H 84 110 H 08/12/24 11:19 POC Glucose 128 H OUTPATIENT ANTIDIABETIC REGIMEN: * metformin 500mg PO BID HbA1C: 6.3% (06/27/24) ASSESSMENT: 08/12: * BSGs [phone] mg/dL over the past 24 hours. Received 12 units of NovoLog yesterday. * Will loosen NovoLog CR slightly. Patient continue to tolerate a diet. 08/11 * Pt is a 79 year old female admitted s/p right TCAR, POD #1. History of DM2 on metformin @ home. Pharmacy consulted to assist with glycemic management while inpatient. * BSGs [phone]/dL since admission. No documented steroid admission. Tolerating diet. Continues on phenylephrine. * Hold basal for now given BSGs within goal range (as well as outpatient regimen, A1C). Novolog mild-moderate stress scale ACHS. PLAN FOR INPATIENT GLYCEMIC CONTROL: * Hold outpatient oral diabetes medications * Basal insulin * hold * Bolus insulin * NovoLog per scale ACHS or Q6hrs while NPO * Goal Range: Low 110 mg/dL - High 140 mg/dL * Correction Factor: 25 mg/dL/unit * Nutritional / Prandial insulin per carb ratio of 1 unit per 15 grams CHO consumed
[2024-08-12 12:44] VITALS: BP 116/53; PULSE 74; RESP 17; O2SAT 98
--- NOTE | 2024-08-15 09:45 | Discharge Summary ---
Date of Service August 15, 2024 Admission HPI Per Admitting Provider 79 yo f with multiple medical problems, including arthritis, hx of DVT/PE, liver cirrhosis, CKD, vertigo, UC s/p proctatectomy/ colectomy with colostomy, open draining sinus from surgery, GERD, hypothyroidism, CHF, DMII, admitted after severe dizziness/N/V at home and found to have carotid stenosis, seen earlier this year for same. Pt denies any prior knowledge. Review of her chart since Nov 30 indicated multiple admissions for similar sx. Admission in Nov revealed DVT/PE with R heart strain, apparently improved upon admission in January 2024, although still with slightly reduced EF. Pt states she has never seen a trainmaster as outpt, she was seen during admission here only. States she "didn't get around to setting that up yet." She has not been consistent in her outpt care. She does not drive and relies on her daughter to drive her places. Has had chronic dizziness, sometimes associated with N/V, for many months. She has had near syncopal events and had some falls at home. Denies any la teralizing sx, amaurosis, aphasia, facial droop. She had an uneventful tcar of her left carotid and has severe stenosis of her right carotid artery. Admission Exam Per Admitting Provider Constitutional: WD/WN, vitals as a arvind + morbidly o bese and cooperati ve; not in distres s ENMT: Ears: no hearing i mpairment Neck: trachea midline Respiratory: normal respiratory effort, lungs miracle ar to auscultation Auscultation: + diminished lung so unds Cardiovascular: Rate/Rhythm: regul ar rate and regula r rhythm Vessels: posterior tibial pulses present, do rsalis pedis pulse s present and radi al pulses present; + abnormal periph eral pulses Extre mities: normal cap illary refill and + edema Gastrointestinal ( Abdomen): Inspection/Auscult ation: abdomen nor mal to inspection, normal bowel soun ds and + abdominal surgical scar (mu ltiple, ileostomy present. draining sinus under ileos kael dressing. ) Percussion/Palpati on: abdomen soft; abdomen nontender Musculoskeletal: no cyanosis or clu bbing, extremities motor strength 5/ 5 Skin: no rashes, warm an d dry Neurologic: moves all extremit ies and awake; no focal motor defici ts and not confuse d Psychiatric: A+Ox3, euthymic af fect Principal Diagnosis 1. s/p R TCAR 2. R ICA stenosis Discharge Exam Constitutional WD/WN, vitals as above Neck trachea midline Respiratory normal respiratory effort; no respiratory distress Cardiovascular Rate/Rhythm: regular rate and regular rhythm Skin + incision (dry and clean) Neurologic CN's II-XI intact bilaterally and moves all extremities Psychiatric A+Ox3, euthymic affect Discharge Data Allergies Allergy/AdvReac Type Severity Reaction Status Date / Time red dye Allergy Severe Anaphylaxis Verified 08/10/24 11:21 Consultations 08/10/24 16:07 Consult Letter Carrier Routine Procedures Performed Operation Date: 08/10/24 13:00 Actual Procedures p Right Transcarotid Artery Revascularization, Ultrasound Right Common Femoral Vein(Right) - Stan Vazquez MD Ordered Studies 08/10/24 07:14 EV angio carotid cerv RT Routine US EV guide vascular access Routine Hospital Course (1) Stenosis of right carotid artery: Patient POD #2 from a right tcar. Neosynephrine has been d/c. Remains hypotensive with sbp 85-95mmHg. Pt asymptomatic, even got OOB to chair without any sx. If BP improves slightly and pt remains asymptomatic, pt may be ok for d/c home later today. Total Time Total Time Spent Total Time Spent (In Minutes): 0 Discharge Plan Discharge Items Patient Disposition: Home - Self-Care Reason For Visit: Bilateral Carotid Artery Stenosis Discharge Diagnosis: Bilateral carotid artery stenosis Activity: Per Instructions section Non-emergency contact: Surgeon Call non-emergency contact if: your temperature is above 101.5, your wound has increased redness, your wound has increased drainage and your wound pain has increased Follow-up/Referrals: Tanisha Reyes MD [Primary Care Provider] - 08/30/24 10:40 am (Hospital Follow Up with Dr. Reyes is scheduled for August 30, 2024 at 10:40 am. ) Diet: Heart Healthy Addtl Attending Provider Instructions: SPECIAL CARE INSTRUCTIONS: Medications: * Continue to take Aspirin, Brilinta, and statin as directed. Incision Care: * You may shower, but do not rub incision. You may let the warm soapy water run over it. Be sure to dry the incision well after bathing. * Do not shave directly over the incision until it is healed. * DO NOT IMMERSE THE INCISION IN A TUB/POOL/etc. UNTIL HEALED. Restrictions: * Do not drive for at least one week or if you are still taking any narcotic pain medication. * Do not lift anything heavier than a gallon of milk for one week after going home. Possible Complications: * Numbness - It is normal to have some numbness around the incision. Numbness can extend beyond the incision to areas of the neck, ear and face. The numbness is due to bruising of nerves during the surgery and will gradually improve over a period of months. * Hoarseness/Difficulty Speaking and Swallowing - The bruising of nerves in the neck can also cause a hoarse voice, difficulty speaking or swallowing. This may improve over time, HOWEVER, if it continues for more than a few days please contact our office ([phone]). * Excessive Swelling - There will be some swelling immediately after surgery which usually resolves within one week. If you notice that the swelling is getting worse, notify your surgeon ([phone]). * Drainage/Bleeding - If there is any drainage or bleeding, it should be a very small amount (less than a teaspoon per day). If you have excessive bleeding or drainage from the incision, call your surgeon ([phone]) right away. ACTIVATION OF EMERGENCY MEDICAL SYSTEM: Call 911, immediately, if you experience any of the following: Warning Signs and Symptoms of Stroke: * Sudden numbness or weakness of the face, arm or leg, especially on one side of the body * Sudden confusion, trouble speaking or understanding * Sudden trouble seeing in one or both eyes * Sudden trouble walking, dizziness, loss of balance or coordination * Sudden severe headache with no cause Do not delay calling 911 if you experience any warning signs or symptoms of a stroke. Delay in seeking medical attention may affect what treatments can be given to you. Risk Factors for Stroke: You can reduce your chances of stroke by working with your medical provider to adopt a healthy lifestyle. Some specific ways to lower your chance of stroke are: * If you are a smoker, now is the time to stop smoking cigarettes * If you are diabetic, improve the control of your blood sugars * Avoid excessive amounts of alcohol * Control high blood pressure * Lose weight if you are overweight * Be sure to lead an active lifestyle * Eat a healthy diet low in salt, cholesterol and fat You should know about other risk factors for stroke that you are unable to control. These include: * Age 55 years or older * Male gender * Certain racial groups: , or / * Family History of Stroke, Mini stroke or Heart Attack * Sickle Cell Disease You will be receiving a call from the Vascular Surgery Nurse after you are discharged. FOLLOW UP VISIT: It is important for you to keep your follow up appointments with your medical provider. Keep any scheduled doctor appointments. Call [phone] to schedule a follow up appointment if one not already scheduled. Pending Studies at Discharge: No Stand-Alone Forms: [employer], Smoking Cessation Medications and DC Order Prescriptions: New pseudoephedrine HCl [Sudafed 12 Hour] 120 mg tablet extended release 120 mg PO Q12H Qty: 20 0RF Continued torsemide 10 mg tablet 10 mg PO QAM levothyroxine 200 mcg Tablet 200 mcg PO QAM Patient Comments: takes 200 mcg with 25 mcg for dose of 225 mcg Rx Instructions: Take 200mcg w/ 25mcg once every morning to equal 225mcg cyanocobalamin (vitamin B-12) [Vitamin B-12] 1,000 mcg Tablet 1,000 mcg PO QAM cholecalciferol (vitamin D3) [Vitamin D3] 50 mcg (2,000 unit) Capsule 50 mcg PO QAM levothyroxine 25 mcg Tablet 25 mcg PO QAM Patient Comments: takes with 200 mcg Rx Instructions: Take 25mcg w/ 200mcg once every morning to equal 225mcg Eliquis 5 mg tablet 5 mg PO BID Qty: 60 0RF metformin 500 mg Tablet 500 mg PO BID pravastatin 40 mg Tablet 40 mg PO HS Brilinta 90 mg tablet 90 mg PO BID famotidine [Pepcid] 20 mg tablet 20 mg PO BID PRN (Reason: Acid Reflux) Patient Comments: hardly uses oxycodone 5 mg tablet 5 mg PO Q6H PRN (Reason: pain) acetaminophen 325 mg Tablet 650 mg PO Q4H MDD 3gm/24hr PRN (Reason: Pain) aspirin 81 mg Tablet,Delayed Release (Dr/Ec) 81 mg PO QAM Qty: 30 0RF midodrine 5 mg tablet 5 mg PO QAM Discharge Orders: Discharge Order (Routine); Ordered 08/12/24 Ordered By: Stan Vazquez Admission Data Admit Date/Time: 08/10/24 12:24 Attending Provider: Stan Vazquez Admit Provider: Stan Vazquez Primary Care Provider: Tanisha Reyes Other Providers: Cuong Saez; Donald Tapia; Mike Warren; Bj Gonzalez; Deven Hall; Gauri Ardon; Adam Blank; Aster Linder; Jodee Reeves; Khoa Schwartz; Vinod Durán; Katie Bhatti Other Interventions: Discharge Summary Assessment (RN) Last Done: 08/12/24 12:47
== END 2024-08-12 13:29 | disposition home or self-care (01) | DRG 35 ==
LOC: ASU 11:07 → 1E 12:24
PROC: EV.TCAR (2024-08-10 13:00)